=== PATIENT | male | born 1950 | race Caucasian/White ===

== ENCOUNTER 2020-09-11 10:21 | Emergency (ER) | payer MEDICARE, SELFPAY ==
[2020-09-11 10:21] VITALS: BP 158/68; PULSE 67; RESP 18; TEMP 36.4; O2SAT 100; BMI 31.2
--- NOTE | 2020-09-11 10:27 | CT_ITS ---
PROCEDURE: CT ABDOMEN PELVIS W CON CLINICAL INDICATION: right sided pain Right flank pain and right lower quadrant pain COMPARISON: No exams were available for comparison TECHNIQUE: IV Contrast: 75ML Isovue 370 Oral Contrast None Axial images obtained with sagittal and coronal reformats. All CT scans at the facility use one or more dose reduction, viz: automated exposure control, ma/kV adjustment per patient size (including targeted exams where dose is matched to indication, i.e. head), or iterative reconstruction technique. FINDINGS: LOWER THORAX: Minimal atelectatic changes in the lung bases. There is mild cardiomegaly. ABDOMEN & PELVIS: Prior cholecystectomy with mild biliary dilatation. No focal liver lesion apparent. The spleen is enlarged at 14 cm. Multiple low-density areas are present in the spleen the measuring up to 14 mm posteriorly. These areas show some slight increased density centrally. At least 7 hypodense areas are noted. These areas become isodense to splenic parenchyma on the delayed images and are not readily discernible from the spleen.. The adrenal glands and pancreas has an unremarkable appearance. No renal or ureteral calculi. No hydronephrosis. The there is an indeterminate 15 mm isodense nodule of the right kidney projecting anteriorly No evidence of appendicitis. There is a mild amount of retained colonic feces. No intestinal obstruction or free air is evident. There is colonic diverticulosis but no evidence of diverticulitis. A penile implant is present with insufflation bulb in the left lower quadrant There are degenerative changes in the lumbar spine and hips. IMPRESSION: 1. No evidence of appendicitis or obstructing renal or ureteral calculus. 2. There is an indeterminate 15 mm right renal nodule. Nonemergent ultrasound suggested to determine cystic or solid nature. 3. Splenomegaly with multiple slightly hypodense splenic lesions which become isodense to spleen on the delayed images. These could represent atypical hemangiomas. One cannot exclude the possibility of metastatic foci or small splenic abscesses. Consider short-term follow-up to confirm stability 4. Colonic diverticulosis but no evidence of diverticulitis Dictated by: Rob Hawthorne MD 09/11/2020 12:37 Rob Hawthorne MD in [place] 09/11/2020 12:37
--- NOTE | 2020-09-11 10:42 | HMH.EDGENADL ---
ED Disposition Clinical Impression: Right flank pain, Renal cyst, Splenic lesion Disposition: Home, Self-Care Condition on Discharge: Good Instructions: DI for Acute Abdominal Pain Additional Instructions: Return to the emergency department with any new, changing, or worsening symptoms. You need to follow-up with your primary care physician and have a renal ultrasound performed as well as have close follow-up for your spleen. Please follow-up with your primary care physician early next week. Please return to the ER with new or worsening symptoms. Return for vomiting, worsening abdominal pain, lightheadedness, passing out, blood in your urine, difficulty with urination, burning when you urinate. Referrals: Salvador Lamb MD [Primary Care Provider] - Time of Disposition: 13:08 - Critical Care Critical Care Time: No Attestation: On 09/11/20, the high probability of a clinically significant, sudden or life threatening deterioration of the following system(s) required my full and direct attention, intervention and personal management. The time I documented below is in addition to time spent performing reported procedures but includes the following listed in this critical care notation. Medical Decision Making - Medical Records Medical records reviewed: Yes: I reviewed the patient's medical records. - Curt Inquiry Pt receiving controlled substance: No Vital Signs: 09/11/20 10:21 09/11/20 11:00 09/11/20 11:30 Temperature 97.6 F Temperature Source Oral Pulse Rate 66 64 Pulse Rate [Right Radial] 67 Respiratory Rate 18 18 18 Blood Pressure 152/76 H 143/71 H Blood Pressure [Right Arm] 158/68 H Blood Pressure Mean [Right Arm] 98 Blood Pressure Source Automatic Cuff Automatic Cuff Blood Pressure Source [Right Arm] Automatic Cuff Blood Pressure Position Sitting Sitting Blood Pressure Position [Right Arm] Sitting 02 Sat by Pulse Oximetry 100 98 100 Oxygen Delivery Method Room Air Room Air Room Air 09/11/20 13:58 Temperature 98 F Temperature Source Oral Pulse Rate 78 Pulse Rate [Right Radial] Respiratory Rate 16 Blood Pressure 132/74 Blood Pressure [Right Arm] Blood Pressure Mean [Right Arm] Blood Pressure Source Blood Pressure Source [Right Arm] Blood Pressure Position Sitting Blood Pressure Position [Right Arm] 02 Sat by Pulse Oximetry Oxygen Delivery Method Room Air - Lab Data Lab results reviewed: Yes: I reviewed the patient's lab results. Lab Results 09/11/20 10:46: Sodium 143, Potassium 4.4, Chloride 105, Carbon Dioxide 28, Anion Gap 14.4, BUN 17, Creatinine 0.90, Estimated Creat Clear 81, Estimated GFR 84, Est GFR ( Amer) 101, Glucose 109 H, Calcium 9.8, Total Bilirubin 0.4, AST 32, ALT 22, Alkaline Phosphatase 50, Total Protein 7.6, Albumin 4.8, Globulin 2.8, Albumin/Globulin Ratio 1.7, Lipase 118 09/11/20 11:23: WBC 4.2 L, RBC 3.82 L, Hgb 11.2 L, Hct 32.3 L, MCV 84.6, MCH 29.3, MCHC 34.7, RDW 14.8, Plt Count 135 L, MPV 10.0, Neut % (Auto) 68.6, Lymph % (Auto) 19.6, [place] % (Auto) 7.3, Eos % (Auto) 4.1, Baso % (Auto) 0.4, Neut # (Auto) 2.9, Lymph # (Auto) 0.8, [place] # (Auto) 0.3, Eos # (Auto) 0.2, Baso # (Auto) 0.0 09/11/20 11:23: Lactate 1.3 09/11/20 12:47: Urine Color Yellow, Urine Appearance Clear, Urine pH 7.5, Ur Specific [place] 1.015, Urine Protein Negative, Urine Glucose (UA) Negative, Urine Ketones Negative, Urine Blood Negative, Urine Nitrate Negative, Urine Bilirubin Negative, Urine Urobilinogen 0.2, Ur Leukocyte Esterase Trace, Urine WBC 3-5, Ur Squamous Epith Cells 3-5 Result diagrams: 09/11/20 11:23 09/11/20 10:46 Orders (Tests/Meds): ED MEDICATIONS Discontinued Medications Generic Name Dose Route Start Last Admin Trade Name Freq PRN Reason Stop Dose Admin Acetaminophen 1,000 mg 09/11/20 10:51 Acetaminophen 500mg Tab PO 09/11/20 10:52 ONCE ONE Lactated Ringer's 1,000 mls @ 999 mls/hr 09/11/20 10:30 09/11/20 11:06 Lactated Ringer'
--- NOTE | 2020-09-11 10:44 | HMH.ITSTN ---
ct abd pel pending labs at 10:44am
--- NOTE | 2020-09-11 10:57 | ECG_ITS ---
APPROVED REPORT Exam: Resting ECG HR:63 bpm ECG Measurements Heart Rate 63 AXES ID 174 P 42 QRSd 82 QRS -13 QT 418 T 69 QTc 427 Conclusion Normal sinus rhythm Normal ECG Electronically signed by : Jung Newell, 09/11/2020 18:49:06
[2020-09-11 11:00] VITALS: BP 152/76; PULSE 66; RESP 18; O2SAT 98
--- NOTE | 2020-09-11 11:00 | HMH.ITSTN ---
labs still pending for ct abd pel with contrast. 11am
[2020-09-11 11:16] LABS: Chloride 105 mmol/L (98-107); Sodium 143 mmol/L (136-145)
[2020-09-11 11:17] LABS: Potassium 4.4 mmoL/L (3.5-5.1)
[2020-09-11 11:19] LABS: Alanine Aminotransferase 22 U/L (12-78); Alkaline Phosphatase 50 U/L (38-126); Anion Gap 14.4 mEq/L (5-15); Aspartate Amino Transferase 32 U/L (17-59); Bilirubin,Total 0.4 mg/dl (0.2-1.3); Blood Urea Nitrogen 17 mg/dl (9-20); Carbon Dioxide 28 mmol/L (22.0-30.0); Creatinine Clearance Estimated 81 mL/min (50-200); Estimated Glomerular Filt Rate 84 ml/min (>60); GFR (African American) 101 ML/MIN (>60); Lipase 118 U/L (23-300)
[2020-09-11 11:20] LABS: Albumin Level 4.8 g/dl (3.5-5.0); Albumin/Globulin Ratio 1.7 (1.1-1.8); Calcium 9.8 mg/dl (8.4-10.2); Globulin 2.8 g/dL (1.3-3.2); Glucose 109 mg/dl (74-100); Total Protein,Serum 7.6 g/dl (6.3-8.2)
[2020-09-11 11:30] VITALS: BP 143/71; PULSE 64; RESP 18; O2SAT 100
[2020-09-11 11:34] LABS: Basophils % 0.4 % (0.1-2.0); Eosinophils # 0.2 K/mm3 (0.0-0.4); Eosinophils % 4.1 % (0.1-12.0); Hematocrit 32.3 % (42.0-52.0); Hemoglobin 11.2 g/dL (14.1-18.0); Lymphocytes # 0.8 K/mm3 (0.7-4.5); Lymphocytes % 19.6 % (10-50); Mean Corpuscular HGB Conc 34.7 g/dL (31.8-35.4); Mean Corpuscular Hemoglobin 29.3 pg (27.0-31.2); Mean Corpuscular Volume 84.6 fl (80-94); Monocytes # 0.3 K/mm3 (0.1-1.0); Monocytes % 7.3 % (1.7-9.3); Neutrophils # 2.9 K/mm3 (1.8-7.8); Neutrophils % 68.6 % (37.0-80.0); Platelet Count 135 K/mm3 (142-424); Red Blood Count 3.82 M/mm3 (4.60-6.20); Red Cell Distribution Width 14.8 % (11.5-17.5); White Blood Count 4.2 K/mm3 (4.8-10.8)
--- NOTE | 2020-09-11 11:38 | PC.NURSE ---
notified rad pt labs are back
[2020-09-11 11:45] LABS: Lactic Acid 1.3 mmol/L (0.7-2.1)
--- NOTE | 2020-09-11 11:53 | PC.NURSE ---
pt to Ct
[2020-09-11 12:51] LABS: Microscopic, Urine URINE MICROSCOPIC (MICROSCOPIC)
[2020-09-11 12:59] LABS: Appearance,Urine CLEAR (Clear); Bilirubin,Urine Negative (Negative); Blood, Urine Negative (Negative); Color,Urine YELLOW (Yellow); Glucose,Urine (UA) Negative (Negative); Ketones,Urine Negative (Negative); Leukocyte Esterase,Urine TRACE (Negative); Nitrate,Urine Negative (Negative); PH,Urine 7.5 (5.0-8.5); Protein,Urine Negative (Negative); Specific Gravity, Urine 1.015 (1.005-1.030); Urobilinogen,Urine 0.2 EU/dl (0.2)
[2020-09-11 13:58] VITALS: BP 132/74; PULSE 78; RESP 16; TEMP 36.6; O2SAT 98
== END 2020-09-11 13:59 | disposition home or self-care (01) ==
PROVIDERS: Emergency Provider Emergency Medicine; PCP Family Medicine
DX: N28.1 Cyst of kidney, acquired (principal); D73.89 Other diseases of spleen; G43.709 Chronic migraine without aura, not intractable, without status migrainosus; F33.1 Major depressive disorder, recurrent, moderate
CPT/HCPCS: 74177; 80053; 81001; 83605; 83690; 85025; 93005; 96365; 96375; 99283; J2405; Q9967

== ENCOUNTER → 2020-09-23 13:47 | Outpatient (CLI) | payer MEDICARE, SELFPAY ==
--- NOTE | 2020-09-23 13:53 | US_ITS ---
PROCEDURE: US KIDNEY CLINICAL INDICATION: Recent CT exam showed a small right renal cyst, history of prostate carcinoma 2012 COMPARISON: CT CT ABDOMEN PELVIS W CON from 09/11/2020 FINDINGS: Right kidney measures 9.0 x 6.1 by 6.1 cm with a cortical thickness 1.8 cm. A small exophytic cystic lesion lower pole measuring 1.6 x 1.1x 1.4 cm. Otherwise the right kidney appears sonographically normal. There is normal vascularity. The spleen appears normal. The left kidney measures 10.0 x 6.0 by 6.9 cm with a cortical thickness of 1.4 cm. There is normal vascularity and the left kidney appears sonographically normal. IMPRESSION: Small benign-appearing cystic lesion lower pole right kidney otherwise normal kidneys bilaterally Dictated by: Dr. Jonny Ferrell MD 09/23/2020 15:25 Dr. Jonny Ferrell MD in [place] 09/23/2020 15:25
== END ==
PROVIDERS: PCP Family Medicine; Visit Provider Family Medicine
DX: N28.1 Cyst of kidney, acquired (principal)
CPT/HCPCS: 76770

== ENCOUNTER → 2021-03-19 16:44 | Outpatient (CLI) | payer MEDICARE, SELFPAY ==
[2021-03-19 16:51] LABS: Adenovirus,PCR Not Detected (NotDetected); Bordetella Pertussis Not Detected (NotDetected); Chlamydophila Pneumoniae, PCR Not Detected (NotDetected); Coronavirus 19, PCR Not Detected (NotDetected); Coronavirus 229E Not Detected (NotDetected); Coronavirus NL63 Not Detected (NotDetected); Coronavirus OC43 Not Detected (NotDetected); Coronovirus HKU1,PCR Not Detected (NotDetected); Human Metapneumovirus Not Detected (NotDetected); Influenza A, PCR Not Detected (NotDetected); Influenza AH1, 2009 Not Detected (NotDetected); Influenza AH1, PCR Not Detected (NotDetected); Influenza AH3,PCR Not Detected (NotDetected); Influenza B, PCR Not Detected (NotDetected); Mycoplasma Pneumoniae, PCR Not Detected (NotDetected); Parainfluenza 1, PCR Not Detected (NotDetected); Parainfluenza 2, PCR Not Detected (NotDetected); Parainfluenza 3, PCR Not Detected (NotDetected); Parainfluenza 4, PCR Not Detected (NotDetected); Respiratory Syncytial Virus Not Detected (NotDetected); Rhinovirus/Enterovirus Not Detected (NotDetected)
[2021-03-19 18:00] LABS: Basophils % 0.6 % (0.1-2.0); Eosinophils # 0.2 K/mm3 (0.0-0.4); Eosinophils % 2.9 % (0.1-12.0); Hematocrit 41.1 % (42.0-52.0); Hemoglobin 13.3 g/dL (14.1-18.0); Lymphocytes # 1.1 K/mm3 (0.7-4.5); Lymphocytes % 18.6 % (10-50); Mean Corpuscular HGB Conc 32.3 g/dL (31.8-35.4); Mean Corpuscular Hemoglobin 29.5 pg (27.0-31.2); Mean Corpuscular Volume 91.2 fl (80-94); Mean Platelet Volume 12.3 fl (7.4-10.4); Monocytes # 0.4 K/mm3 (0.1-1.0); Monocytes % 7.5 % (1.7-9.3); Neutrophils % 70.4 % (37.0-80.0); Platelet Count 219 K/mm3 (142-424); Red Blood Count 4.51 M/mm3 (4.60-6.20); Red Cell Distribution Width 14.4 % (11.5-17.5); White Blood Count 5.7 K/mm3 (4.8-10.8)
[2021-03-19 18:25] LABS: Alanine Aminotransferase 21 U/L (12-78); Albumin Level 4.7 g/dl (3.5-5.0); Alkaline Phosphatase 35 U/L (38-126); Anion Gap 12.4 mEq/L (5-15); Aspartate Amino Transferase 32 U/L (17-59); Bilirubin,Total 0.4 mg/dl (0.2-1.3); Blood Urea Nitrogen 20 mg/dl (9-20); Calcium 9.9 mg/dl (8.4-10.2); Carbon Dioxide 30 mmol/L (22.0-30.0); Chloride 100 mmol/L (98-107); Estimated Glomerular Filt Rate 84 ml/min (>60); GFR (African American) 101 ML/MIN (>60); Globulin 2.4 g/dL (1.3-3.2); Glucose 78 mg/dl (74-100); Lipase 93 U/L (23-300); Potassium 4.4 mmoL/L (3.5-5.1); Sodium 138 mmol/L (136-145); Total Protein,Serum 7.1 g/dl (6.3-8.2)
== END ==
PROVIDERS: Visit Provider Family Medicine
DX: Z20.822 Contact with and (suspected) exposure to COVID-19 (principal); R10.9 Unspecified abdominal pain; K57.90 Diverticulosis of intestine, part unspecified, without perforation or abscess without bleeding
CPT/HCPCS: 80053; 83690; 85025; 87086; 87581; 87632; 87798; C9803; U0003; U0005

== ENCOUNTER → 2021-05-24 12:50 | Outpatient (CLI) | payer MEDICARE, SELFPAY ==
--- NOTE | 2021-05-24 12:50 | CT_ITS ---
FINAL REPORT TECHNIQUE: Axial images through the abdomen and pelvis were performed without contrast. This study was performed with techniques to keep radiation doses as low as reasonably achievable, (ALARA). Individualized dose reduction techniques using automated exposure control or adjustment of mA and/or kV according to the patient's size were employed. CLINICAL HISTORY: abdominal pain and splenomegaly COMPARISON: 09/11/2020 FINDINGS: ABDOMEN: Lack of intravenous contrast limits exam sensitivity. There is scarring at the lung bases. The heart size is normal. Patient is status post cholecystectomy. Limited images of the liver are unremarkable. The spleen is at the upper limits of normal in size. Previously noted splenic nodules are not seen on this unenhanced exam. No adrenal mass is identified. The aorta is normal in caliber. There is no significant free fluid or adenopathy. There is a small, nonobstructing left renal stone measuring 3 mm. Exophytic focus in the anterior right kidney is seen measuring 1.6 cm with a mean attenuation value of 32 Hounsfield units which is indeterminate but stable from prior exam. PELVIS: The appendix is not identified. A penile prosthesis is seen with a reservoir in the anterior left hemipelvis. The urinary bladder is unremarkable. There is no significant free fluid or adenopathy. IMPRESSION: Nonobstructing left renal stone. Stable, indeterminate right renal lesion. Previously seen pancreatic nodules not identified on this unenhanced exam. Recommend pre-and postcontrast CT for further evaluation of renal and splenic nodules. Reviewed, Interpreted and Dictated by Timothy Sousa MD Transcribed by Bee Sams Authenticated by Timothy Sousa MD on 05/24/2021 04:28:[address] [facility]
== END ==
PROVIDERS: PCP Family Medicine; Visit Provider Family Medicine
DX: R10.32 Left lower quadrant pain (principal); R16.1 Splenomegaly, not elsewhere classified
CPT/HCPCS: 74176

== ENCOUNTER → 2022-11-28 12:10 | Outpatient (CLI) | payer MEDICARE, SELFPAY ==
--- NOTE | 2022-11-28 12:34 | NM_ITS ---
APPROVED REPORT Exam: Nuclear Stress Test Indication: soa..fatigue..highBP..chest pain..syncope Patient Location: Outpatient Stress Tech: Nisha Johnson [place] Tech:Rohini DodgePERNELL RT(R)(N) Ht: 5 ft 5 in Wt: 180 lbs HR: 72 bpm BP: 121/67 mmHg BSA: 1.89 m2 Rhythm: NSR TID: 1.08 BMI: 29.9 History: soa..fatigue..highBP..chest pain..syncope Procedure: Patient exercised on Michael protocol 8:26 minutes and sec, resting heart rate 72 bpm, resting blood pressure 121/67 mmHg, with exercise maximum heart rate achived was 144 bpm which is 97 % of the maximum predicted heart rate and blood pressure was 180/78 mmHg. Test was stopped due to fatigue. Patient denied any complaint of chest pain. Patient has Average exercise capacity, achieved 10.1 METs of workload on treadmill, the blood pressure response to exercise was Normal. Cardiac Stress and Resting SPECT Images: Cardiac Stress and Resting SPECT images were obtained using technetium 99m Myoview 32.8 mCi stress and 10.43 mCi at rest. Resting and stress imaging in both supine and prone positions demonstrate a medium sized, moderate, reversible perfusion defect in the basal inferior and lateral LV kelley. Gated imaging demonstrates low-normal global LV systolic function. There is mild hypokinesis of the basal inferior and lateral LV kelley. LVEF is calculated at 51%. Conclusion: Medium sized, moderate, reversible perfusion defect in the basal inferior and lateral LV kelley. Findings are suggestive of reversible ischemia. Gated imaging demonstrates low-normal global LV systolic function. There is mild hypokinesis of the basal inferior and lateral LV kelley. LVEF is calculated at 51%. Electronically signed by : Jojo Valle MD 12/03/2022 22:46:06
--- NOTE | 2022-11-28 16:14 | CA_ITS ---
APPROVED REPORT Exam: Exercise Treadmill Technologist: Nisha Johnson Ht: 5 ft 4 in Wt: 177 lbs BSA: 1.86 m2 HR: 70 bpm BP: 121/67 mmHg Rhythm: NSR Indications: Shortness of Air, chest pain Medical History Medications: Amlodipine,,,,, Aspirin,,,,, Magnesium,,,,, FeNOfibrate,,,,, OxYCODONE,,,,, Esomeprazole,,,,, Venlafaxine,,,,, Stress Test Details Test: Michael HR Resting HR: 72 bpm Max Heart Rate (APMHR): 149 bpm Max HR Achieved: 144 bpm Target HR (85% APMHR): 127 bpm % of APMHR: 97 Recovery HR: 90 bpm HR response to stress: Normal HR response to stress BP Resting BP: 121.0/67.0 mmHg Max BP: 180.0/78.0 mmHg Recovery BP: 151.0/61.0 mmHg BP response to stress: Normal blood pressure response to stress. ECG Resting ECG: sinus rhythm Stress EC.[address] depression Arrhythmia: PVCs Recovery ECG: Return to baseline within 3 minutes of recovery Recovery Arrhythmia: PVCs Clinical Exercise duration: 08:26 min Highest Stage Achieved: Exercise capacity: 10.1 METs Overall Exercise Capacity for Age: Average Stress ECG Conclusion The patient was able to exercise for a total of 8 minutes, 26 seconds. He achieved a total of 10.1 METS. He has an average exercise capacity compared to age and sex matched peers. He has normal HR and BP response to exercise. Symptoms: Leg fatigue, dyspnea Arrhythmias/Ectopy: PVC's ST-T Changes: 0.5 mm upsloping [address] depression Conclusion: Average exercise capacity. Unremarkable ECG stress test. Myoview images are reported separately. Test Summary REST . . . . . . . Sitting REST 03:52 0.0 0.0 72 . 121/ 67 . . Stage 1 01:00 10.0 1.7 89 . . . . Stage 1 02:00 10.0 1.7 99 . . . . Stage 1 03:00 10.0 1.7 102 . 138/ 70 . . Stage 2 01:00 12.0 2.5 107 . . . . Stage 2 02:00 12.0 2.5 111 . . . . Stage 2 03:00 12.0 2.5 117 . 144/ 72 . . Stage 3 01:00 14.0 3.4 125 . . . . Stage 3 . . . . . . . Myoview Injected Stage 3 02:00 14.0 3.4 135 . . . . Stage 3 02:26 14.0 3.4 140 . . . Stop exercise at 08:26 RECOVERY 01:00 0.0 0.0 131 . 180/ 78 . . RECOVERY 02:00 0.0 0.0 116 . 180/ 78 . . RECOVERY 03:00 0.0 0.0 104 . 171/ 69 . . RECOVERY 04:00 0.0 0.0 97 . 164/ 62 . . RECOVERY 05:00 0.0 0.0 95 . 158/ 64 . . RECOVERY 05:56 0.0 0.0 88 . 151/ 61 . . Electronically signed by : Jojo Valle MD 12/03/2022 22:42:28
== END ==
PROVIDERS: PCP Family Medicine; Visit Provider Nurse Practitioner Family
DX: R06.02 Shortness of breath (principal); R94.31 Abnormal electrocardiogram [ECG] [EKG]
CPT/HCPCS: 78452; 93017; A9502

== ENCOUNTER → 2022-12-14 13:15 | Outpatient (CLI) | payer MEDICARE, SELFPAY ==
--- NOTE | 2022-12-14 13:17 | CA_ITS ---
APPROVED REPORT EXAM: Comprehensive 2D, Doppler, and color-flow Echocardiogram Muleser: Amira Conner RVT Ht: 5 ft 4 in Wt: 177lbs BSA: 1.86 BP: 130/63 mmHg Indications: SOA,SYNCOPE,CP,HTN,HLD TDS-LIMITED WINDOWS 2D Dimensions LVOT 2.74 cm (M/F) 1.5-2.5 LA Volume 49.10 mL LA Volume Index 26.40 mL/m2 (M/F) 16-34 M-Mode Dimensions RVDd 2.81 cm (0.9-2.6) LA Diam 4.14 cm (1.9-4.0) LVDd 5.02 cm (3.5-5.7) Ao Diam 3.81 cm (2.0-3.7) LVDs 3.33 cm (3.5-5.7) IVSd 1.41 cm (0.6-1.1) PWd 0.61 cm (0.6-1.1) EF (Teich) 62.20% FS 33.70% EDV (Teich) 119.30 mL TAPSE 3.62 (<1.7) ESV (Teich) 45.10 mL LV Diastology E Decel Time 150.00 (160-240 msec) E/A Ratio 0.7 MED E' 6.00 (< 7 cm/sec) E'/MED E' Ratio 13.02 (>14) LAT E' 8.60 (<10 cm/sec) E/LAT E' Ratio 9.08 (>14) Aortic Valve AI PHT 536.00 ms AO Peak GR. 7.90 mmHg Mitral Valve MV E Max Jn. 78.00 (40-130 cm/s) MV A Velocity 117.00 (40-130 cm/s) E/A Ratio 0.67 MV Decel. Time 150.00 (160-240 ms) MV Mean Gr. 3.00 (<2mmHg) MV PHT 44.00 ms Pulmonary Valve PV Peak Velocity 77.00 (50-150 cm/s) Tricuspid Valve TR P. Velocity 248.00 cm/s RAP Estimate 10.00 mmHg RVSP 34.60 mmHg Left Ventricle The left ventricle is normal size. The left ventricular systolic function is normal. The left ventricular ejection fraction is within the normal range. There is normal left ventricular wall thickness. The septum is asynchronous. The left ventricular diastolic function is normal. LVEF is 55%. Right Ventricle Right ventricle is mildly dilated. The right ventricular systolic function is normal. Atria The left atrium size is normal. The right atrium size is normal. There is no Doppler evidence of interatrial shunt. Aortic Valve The aortic valve is trileaflet. The aortic valve opens well. There is no aortic valvular stenosis. Mild aortic regurgitation. Mitral Valve The mitral valve is normal in structure. Trace mitral regurgitation. Tricuspid Valve The tricuspid valve leaflets are thin and pliable. Trace tricuspid regurgitation. There is insufficient TR jet to estimate RVSP. Pulmonic Valve The pulmonary valve is normal in structure. Trace pulmonic regurgitation. Great Vessels The aortic root is normal in size. The ascending aorta is normal in size. IVC is normal in size and collapses >50% with inspiration. Pericardium There is no pericardial effusion. Other Information Study Quality: Fair Conclusion Normal biventricular systolic function. Asynchronous septum. Mild RV dilation. Mild AI. Electronically signed by : Jojo Valle MD 12/17/2022 16:46:56
== END ==
PROVIDERS: PCP Family Medicine; Visit Provider Nurse Practitioner Family
DX: R06.02 Shortness of breath (principal); R94.31 Abnormal electrocardiogram [ECG] [EKG]
CPT/HCPCS: 93306

== ENCOUNTER → 2022-12-20 11:05 | Outpatient (CLI) | payer MEDICARE, SELFPAY | PROVIDERS: PCP Family Medicine; Visit Provider Nurse Practitioner Family | DX: R06.02 Shortness of breath (principal); R55 Syncope and collapse; R94.31 Abnormal electrocardiogram [ECG] [EKG] | CPT/HCPCS: 93270 ==

== ENCOUNTER 2022-12-24 15:40 | Inpatient (IN) | payer MEDICARE, SELFPAY ==
[2022-12-24] VITALS (14 sets, daily range): BP systolic 107–124; BP diastolic 57–71; PULSE 69–81; RESP 10–19; TEMP 36.6–36.8; O2SAT 92–99; BMI 29.9
--- NOTE | 2022-12-24 15:39 | ECG_ITS ---
APPROVED REPORT Exam: Resting ECG HR:76 bpm ECG Measurements Heart Rate 76 AXES VA 202 P 72 QRSd 102 QRS -11 QT 372 T 78 QTc 402 Conclusion SINUS RHYTHM NONSPECIFIC T-WAVE ABNORMALITY BORDERLINE ECG UNCONFIRMED REPORT Electronically signed by : Jung Newell MD 12/26/2022 08:33:49
--- NOTE | 2022-12-24 15:50 | HMH.EDGENADL ---
Discharge Plan Disposition Patient Disposition: Admitted Chief Complaint: Chest Pain Clinical Impressions Clinical Impression: Angina pectoris, unstable Discharge ED Provider: Ray Greenfield General Adult HPI General Chief complaint: Chest Pain Stated complaint: Chest Pain Time Seen by Provider: 12/24/22 15:43 History of Present Illness HPI narrative: Patient is a 72-year-old male with past medical history of hypertension, hyperlipidemia who presents emergency department for evaluation of chest pain. Patient has been feeling generally unwell all day however at 2 PM patient was at rest having substernal chest pain while sitting at the kitchen table that was worse with ambulation to the car. Patient reportedly has a 4.5 cm aneurysm . Chest pain is substernal, waxing and waning in intensity, does not radiate. No other acute complaints at this time. Per chart review patient recently had an echocardiogram which showed normal biventricular systolic function with mild RV dilatation, mild AI. Recent myocardial perfusion scan shows medium size moderate reversible perfusion defect in the basal inferior and lateral left ventricular kelley. There is no CTA chest in our system to confirm reported aneurysm. Related Data Previous Rx's Medication Instructions Recorded amlodipine 10 mg-benazepril 40 mg 1 cap PO DAILY #90 caps 07/12/22 capsule (Lotrel) fenofibrate nanocrystallized 145 See Rx Instructions .Route 08/31/22 mg tablet .COMPLEX #90 tabs esomeprazole magnesium 40 mg See Rx Instructions .Route 09/26/22 capsule,delayed release .COMPLEX #90 caps venlafaxine 150 mg See Rx Instructions .Route 10/06/22 capsule,extended release 24 hr .COMPLEX #90 caps aspirin 81 mg tablet,delayed 81 mg PO DAILY #90 tabs 11/22/22 release (Adult Low Dose Aspirin) oxycodone 10 mg tablet 10 mg PO Q8H PRN pain #90 tabs 12/12/22 Allergies Allergy/AdvReac Type Severity Reaction Status Date / Time No Known Allergies Allergy Verified 12/20/22 10:29 [facility] Disclaimer: The information contained in this section may have been updated after the patient was seen, as this information can be updated by other users. Medical History Abnormal electrocardiogram [ECG] [EKG] Cancer of prostate Cardiomegaly Chest pain Hyperlipidemia Hypertension Incidental lung nodule SOB (shortness of breath) on exertion Syncope Thoracic aortic aneurysm Social History Smoking Status: Never smoker alcohol intake: current substance use type: denies use current occupational status: retired Travel in the last 8 weeks: None ROS Obtained: Yes Systems reviewed as appropriate & no additional complaints except as documented Physical Exam General General appearance: alert and in no apparent distress Head Head exam: atraumatic and normocephalic Eye Eye exam: Present PERRL and EOMI ENT ENT exam: Present mucous membranes moist Neck Neck exam: Present normal inspection Chest Chest inspection: Present normal inspection and symmetric chest wall rise Respiratory Respiratory exam: Present normal lung sounds bilaterally; Absent respiratory distress Cardiovascular Cardiovascular exam: Present regular rate and normal rhythm Abdominal Exam Abdominal exam: Present soft; Absent tenderness Extremities Exam Extremities exam: Present normal inspection and other (No pitting edema) Neurological Exam Neurological exam: Present alert; Absent motor sensory deficit Psychiatric Psychiatric exam: Present normal affect Skin Skin exam: Present warm and dry Medical Decision Making Curt Inquiry Pt receiving controlled substance: No Vital Signs: 12/24/22 15:41 12/24/22 16:00 12/24/22 16:30 Temperature 98.3 F Temperature Source Oral Pulse Rate 77 81 Pulse Rate [Right] 75 Respiratory Rate 19 14 15 Blood Pressure 115/71 107/67 L Blood Pressure
--- NOTE | 2022-12-24 15:56 | CT_ITS ---
PROCEDURE INFORMATION: Exam: CTA Chest With Contrast Exam date and time: 12/24/2022 5:12 PM Age: 72 years old Clinical indication: Chest wall pain; Additional info: Reported aneurysm, cp TECHNIQUE: Imaging protocol: Computed tomographic angiography of the chest with contrast. Exam focused on the arteries. 3D rendering (Not supervised by radiologist): MIP and/or 3D reconstructed images were created by the technologist. Radiation optimization: All CT scans at this facility use at least one of these dose optimization techniques: automated exposure control; mA and/or kV adjustment per patient size (includes targeted exams where dose is matched to clinical indication); or iterative reconstruction. Contrast material: ISOVUE; Contrast volume: 100 ml; Contrast route: INTRAVENOUS (IV); REPORTING DATA: Count of CT and Cardiac NM exams in prior 12 months: This patient has received 0 known CTs and 0 known cardiac nuclear medicine studies in the 12 months prior to the current study. COMPARISON: CT ABDOMEN PELVIS WO CON 05/24/2021 1:09 PM FINDINGS: Pulmonary arteries: Normal. No pulmonary emboli. Aorta: Regions of atherosclerotic vascular calcification involving the aortic arch. Aneurysmal dilatation of the ascending aorta measuring 4.2 cm. Lungs: Bilateral ground-glass regions of opacification. Findings nonspecific and may reflect interstitial lung disease. An acute inflammatory process could not be entirely excluded. Densely calcified granuloma right upper lobe. Pleural spaces: Unremarkable. No pneumothorax. No pleural effusion. Heart: Unremarkable. No cardiomegaly. No pericardial effusion. Coronary arteries: Coronary artery calcification Lymph nodes: Unremarkable. No enlarged lymph nodes. Bones/joints: Unremarkable. No acute fracture. Soft tissues: Unremarkable. IMPRESSION: 1. Aneurysmal dilatation of the ascending aorta measuring 4.2 cm. 2. Bilateral ground-glass regions of opacification. Findings nonspecific and may reflect interstitial lung disease. An acute inflammatory process could not be entirely excluded.
[2022-12-24 16:10] LABS: Alanine Aminotransferase 27 U/L (12-78); Albumin Level 4.5 g/dl (3.5-5.0); Albumin/Globulin Ratio 1.5 (1.1-1.8); Alkaline Phosphatase 33 U/L (38-126); Anion Gap 13.9 mEq/L (5-15); Aspartate Amino Transferase 36 U/L (17-59); Bilirubin,Total 0.3 mg/dl (0.2-1.3); Blood Urea Nitrogen 21 mg/dl (9-20); Calcium 9.6 mg/dl (8.4-10.2); Carbon Dioxide 25 mmol/L (22.0-30.0); Chloride 103 mmol/L (98-107); Estimated Glomerular Filt Rate 74 ml/min (>60); GFR (African American) 89 ML/MIN (>60); Glucose 110 mg/dl (74-100); Potassium 3.9 mmoL/L (3.5-5.1); Sodium 138 mmol/L (136-145); Total Protein,Serum 7.5 g/dl (6.3-8.2)
[2022-12-24 16:12] LABS: Basophils % 0.6 % (0.1-2.0); Eosinophils # 0.2 K/mm3 (0.0-0.4); Hematocrit 38.3 % (42.0-52.0); Hemoglobin 13.3 g/dL (14.1-18.0); Lymphocytes # 1.1 K/mm3 (0.7-4.5); Lymphocytes % 20.5 % (10-50); Mean Corpuscular HGB Conc 34.6 g/dL (31.8-35.4); Mean Corpuscular Hemoglobin 31.8 pg (27.0-31.2); Mean Corpuscular Volume 91.9 fl (80-94); Mean Platelet Volume 9.8 fl (7.4-10.4); Monocytes # 0.3 K/mm3 (0.1-1.0); Monocytes % 5.5 % (1.7-9.3); Neutrophils # 3.8 K/mm3 (1.8-7.8); Neutrophils % 70.6 % (37.0-80.0); Platelet Count 215 K/mm3 (142-424); Red Blood Count 4.17 M/mm3 (4.60-6.20); Red Cell Distribution Width 13.2 % (11.5-17.5); White Blood Count 5.4 K/mm3 (4.8-10.8)
[2022-12-24 16:21] LABS: Troponin I < 0.01 ng/ml (0.00-0.034)
--- NOTE | 2022-12-24 17:44 | PC.NURSE ---
Pt ambulatory to bathroom and back to bed. When asked about his pain after the nitro he advised, It increased and then decreased. It's about a 7/[address] Greenfield notified.
--- NOTE | 2022-12-24 18:54 | PC.NURSE ---
Rounded on pt. No needs voiced at this time. Pt and visitor updated that we are waiting on second trop. Call light within reach.
[2022-12-24 19:15] LABS: Troponin I < 0.01 ng/ml (0.00-0.034)
--- NOTE | 2022-12-24 19:32 | PC.NURSE ---
paged Dr. Payan for the second time.
--- NOTE | 2022-12-24 19:38 | PC.NURSE ---
speaking with Dr. Payan
--- NOTE | 2022-12-24 19:38 | PC.NURSE ---
discussed case with with recommendations for Nitro GTT and admission. House Contacted for bed assignment
--- NOTE | 2022-12-24 19:49 | PC.NURSE ---
rounded on pt no needs at this time
--- NOTE | 2022-12-24 19:55 | PC.NURSE ---
Nitro gtt has been started per order
--- NOTE | 2022-12-24 20:16 | EXP.HP ---
History of Present Illness *Admission Date: 12/24/22 *Reason for visit:: intermittent chest pain *History of present illness: This is a 72-year-old male with past medical history of hypertension, hyperlipidemia, thoracic AA, who presented emergency department for evaluation of intermittent chest pain. Patient has been feeling generally unwell all day however at 2 PM patient was at rest having substernal chest pain while sitting at the kitchen table that was worse with ambulation to the car. Patient reportedly has a 4.5 cm aneurysm . Chest pain is substernal, waxing and waning in intensity, does not radiate. No other acute complaints at this time. Per chart review patient recently had an echocardiogram which showed normal biventricular systolic function with mild RV dilatation, mild AI. Recent myocardial perfusion scan shows medium size moderate reversible perfusion defect in the basal inferior and lateral left ventricular kelley. Patient was diagnosed recently with COVID at other facility and he been on holter monitor. Admitted for management and treatment. \ [facility] Disclaimer: The information contained in this section may have been updated after the patient was seen, as this information can be updated by other users. Medical History Abnormal electrocardiogram [ECG] [EKG] Cancer of prostate Cardiomegaly Chest pain Hyperlipidemia Hypertension Incidental lung nodule SOB (shortness of breath) on exertion Syncope Thoracic aortic aneurysm Social History (Updated 12/24/22 @ 22:04 by Jyothi Fernandes RN) Smoking Status: Never smoker alcohol intake: current substance use type: denies use current occupational status: retired Travel in the last 8 weeks: None Review of Systems Review of Systems Review of systems:: pertinent systems reviewed and negative unless documented below Meds Home Medications and Allergies Home Medications Medication Instructions Recorded Confirmed Type amlodipine 10 mg-benazepril 40 mg 1 cap PO DAILY #90 caps 07/12/22 12/24/22 Rx capsule (Lotrel) fenofibrate nanocrystallized 145 See Rx Instructions .Route 08/31/22 12/24/22 Rx mg tablet .COMPLEX #90 tabs esomeprazole magnesium 40 mg See Rx Instructions .Route 09/26/22 12/24/22 Rx capsule,delayed release .COMPLEX #90 caps venlafaxine 150 mg See Rx Instructions .Route 10/06/22 12/24/22 Rx capsule,extended release 24 hr .COMPLEX #90 caps aspirin 81 mg tablet,delayed 81 mg PO DAILY #90 tabs 11/22/22 12/24/22 Rx release (Adult Low Dose Aspirin) oxycodone 10 mg tablet 10 mg PO Q8H PRN pain #90 tabs 12/12/22 12/24/22 Rx New Prescriptions to Start Prescriptions: Allergies Allergy/AdvReac Type Severity Reaction Status Date / Time No Known Allergies Allergy Verified 12/20/22 10:29 Exam Data for Last 24 hours Vital signs and Labs for Last 24 Hours: Temp Pulse Resp BP Pulse Ox O2 Del Method 98.3 F 70 14 124/70 98 Room Air 12/24/22 15:41 12/24/22 20:00 12/24/22 20:00 12/24/22 20:00 12/24/22 20:00 12/24/22 18:30 Laboratory Results - last 24 hr 12/24/22 15:43: WBC 5.4, RBC 4.17 L, Hgb 13.3 L, Hct 38.3 L, MCV 91.9, MCH 31.8 H, MCHC 34.6, RDW 13.2, Plt Count 215, MPV 9.8, Neut % (Auto) 70.6, Lymph % (Auto) 20.5, [place] % (Auto) 5.5, Eos % (Auto) 3.0, Baso % (Auto) 0.6, Neut # (Auto) 3.8, Lymph # (Auto) 1.1, [place] # (Auto) 0.3, Eos # (Auto) 0.2, Baso # (Auto) 0.0, Sodium 138, Potassium 3.9, Chloride 103, Carbon Dioxide 25, Anion Gap 13.9, BUN 21 H, Creatinine 1.00, Estimated GFR 74, Est GFR ( Amer) 89, Glucose 110 H, Calcium 9.6, Total Bilirubin 0.3, AST 36, ALT 27, Alkaline Phosphatase 33 L, Troponin I < 0.01, Total Protein 7.5, Albumin 4.5, Globulin 3.0, Albumin/Globulin Ratio 1.5 12/24/22 18:47: Troponin I < 0.01 I & O for Last 24 hours: Intake & Output 12/21/22 12/22/22 12/23/22 12/24/22 23:59 23:59 23:59 23:59 Weight 81.647 kg Const
--- NOTE | 2022-12-24 21:20 | PC.NURSE ---
1950 Step down nurse has been called in. awaiting her arrival for transfer to floor.
--- NOTE | 2022-12-24 21:20 | PC.NURSE ---
Sarah giving report to Jyothi GONZALEZ
--- NOTE | 2022-12-24 21:22 | PC.NURSE ---
report given to LISA Roe
[2022-12-24 21:31] LABS: Adenovirus,PCR Not Detected (NotDetected); Coronavirus 19, PCR Not Detected (NotDetected); Coronavirus 229E Not Detected (NotDetected); Coronavirus NL63 Not Detected (NotDetected); Coronavirus OC43 Not Detected (NotDetected); Coronovirus HKU1,PCR Not Detected (NotDetected); Human Metapneumovirus Not Detected (NotDetected); Influenza A, PCR Not Detected (NotDetected); Influenza AH1, 2009 Not Detected (NotDetected); Influenza AH1, PCR Not Detected (NotDetected); Influenza AH3,PCR Not Detected (NotDetected); Influenza B, PCR Not Detected (NotDetected); Parainfluenza 1, PCR Not Detected (NotDetected); Parainfluenza 2, PCR Not Detected (NotDetected); Parainfluenza 3, PCR Not Detected (NotDetected); Parainfluenza 4, PCR Not Detected (NotDetected); Respiratory Syncytial Virus Not Detected (NotDetected); Rhinovirus/Enterovirus Not Detected (NotDetected)
[2022-12-24 22:54] LABS: Troponin I < 0.01 ng/ml (0.00-0.034)
[2022-12-25] VITALS (25 sets, daily range): BP systolic 102–166; BP diastolic 48–82; PULSE 62–90; RESP 12–18; TEMP 36.6–38; O2SAT 93–98; BMI 29.9
--- NOTE | 2022-12-25 01:06 | PC.NURSE ---
PT ARRIVED TO THE FLOOR VIA WHEELCHAIR @ 21:39
[2022-12-25 06:58] LABS: Basophils % 0.8 % (0.1-2.0); Eosinophils # 0.2 K/mm3 (0.0-0.4); Eosinophils % 5.2 % (0.1-12.0); Hematocrit 35.1 % (42.0-52.0); Hemoglobin 12.2 g/dL (14.1-18.0); Lymphocytes # 0.9 K/mm3 (0.7-4.5); Lymphocytes % 27.6 % (10-50); Mean Corpuscular HGB Conc 34.8 g/dL (31.8-35.4); Mean Corpuscular Hemoglobin 32.2 pg (27.0-31.2); Mean Corpuscular Volume 92.5 fl (80-94); Mean Platelet Volume 9.8 fl (7.4-10.4); Monocytes # 0.3 K/mm3 (0.1-1.0); Monocytes % 7.7 % (1.7-9.3); Neutrophils # 1.9 K/mm3 (1.8-7.8); Neutrophils % 58.7 % (37.0-80.0); Platelet Count 168 K/mm3 (142-424); Red Blood Count 3.79 M/mm3 (4.60-6.20); Red Cell Distribution Width 13.1 % (11.5-17.5); White Blood Count 3.3 K/mm3 (4.8-10.8)
[2022-12-25 07:02] LABS: Chloride 106 mmol/L (98-107); Sodium 139 mmol/L (136-145)
[2022-12-25 07:03] LABS: Potassium 3.9 mmoL/L (3.5-5.1)
[2022-12-25 07:05] LABS: Blood Urea Nitrogen 19 mg/dl (9-20); Creatinine Clearance Estimated 71 mL/min (50-200); Estimated Glomerular Filt Rate 66 ml/min (>60); GFR (African American) 80 ML/MIN (>60)
[2022-12-25 07:06] LABS: Anion Gap 10.9 mEq/L (5-15); Calcium 8.9 mg/dl (8.4-10.2); Carbon Dioxide 26 mmol/L (22.0-30.0); Glucose 101 mg/dl (74-100)
[2022-12-25 07:33] LABS: Troponin I < 0.01 ng/ml (0.00-0.034)
--- NOTE | 2022-12-25 08:41 | PC.NURSE ---
pt stated has no chest pain and hasn't had any chest pain all night, stopped nitro drip (was going at 5mcg/min), instructed pt to alert staff if starts having any chest pain at all and can resume drip
--- NOTE | 2022-12-25 09:14 | HMH.PHAINT1 ---
Pharmacy Intervention Comments: MEDICATION RECONCILIATION COMPLETED ON PATIENT USING EXTERNAL FILL HISTORY FROM PHARMACY. -DARCY SMILEY, JOYAD
--- NOTE | 2022-12-25 11:30 | PC.NURSE ---
turned nitro drip back on at 5mcg/min due to 7/10 chest pain, MD Payan at bedside, to order heparin drip and pt will have heart cath tomorrow
--- NOTE | 2022-12-25 11:44 | EXP.CARD.CON ---
History of Present Illness History of Present Illness Consult date: 12/25/22 Consult reason: chest pain Chief complaint: Chest pain History of present illness: 72-year-old male with past medical history of hypertension, dyslipidemia, thoracic aortic aneurysm presented emergency department for chest pain. Patient started having substernal chest pain while sitting at the kitchen table. On and off No radiation No associated symptoms 7/10 in severity Relieved by nitro in ER Aggravated with exertion EKG did not show ischemia Troponin negative Recently diagnosed with thoracic aortic aneurysm Echo showed normal EF Stress test showed inferior ischemia. Seems like unstable angina. [facility] Disclaimer: The information contained in this section may have been updated after the patient was seen, as this information can be updated by other users. Medical History Abnormal electrocardiogram [ECG] [EKG] Cancer of prostate Cardiomegaly Chest pain Hyperlipidemia Hypertension Incidental lung nodule SOB (shortness of breath) on exertion Syncope Thoracic aortic aneurysm Social History Smoking Status: Never smoker alcohol intake: current substance use type: denies use current occupational status: retired Travel in the last 8 weeks: None Review of Systems Review of Systems Review of systems:: pertinent systems reviewed and negative unless documented below Review of systems (narrative): Chest pain Exam Data for Last 24 hours Vital signs and Labs for Last 24 Hours: Temp Pulse Resp BP Pulse Ox O2 Del Method 97.9 F 69 14 140/75 94 L Room Air 12/25/22 08:00 12/25/22 09:00 12/25/22 09:00 12/25/22 09:00 12/25/22 09:00 12/25/22 09:00 Laboratory Results - last 24 hr 12/24/22 15:43: WBC 5.4, RBC 4.17 L, Hgb 13.3 L, Hct 38.3 L, MCV 91.9, MCH 31.8 H, MCHC 34.6, RDW 13.2, Plt Count 215, MPV 9.8, Neut % (Auto) 70.6, Lymph % (Auto) 20.5, [place] % (Auto) 5.5, Eos % (Auto) 3.0, Baso % (Auto) 0.6, Neut # (Auto) 3.8, Lymph # (Auto) 1.1, [place] # (Auto) 0.3, Eos # (Auto) 0.2, Baso # (Auto) 0.0, Sodium 138, Potassium 3.9, Chloride 103, Carbon Dioxide 25, Anion Gap 13.9, BUN 21 H, Creatinine 1.00, Estimated GFR 74, Est GFR ( Amer) 89, Glucose 110 H, Calcium 9.6, Total Bilirubin 0.3, AST 36, ALT 27, Alkaline Phosphatase 33 L, Troponin I < 0.01, Total Protein 7.5, Albumin 4.5, Globulin 3.0, Albumin/Globulin Ratio 1.5 12/24/22 18:47: Troponin I < 0.01 12/24/22 21:25: Chlamy pneumoniae PCR TNP, Adenovirus (PCR) Not detected, B. pertussis DNA (PCR) TNP, Coronavirus OC43 (PCR) Not detected, Coronavirus HKU1 (PCR) Not detected, Coronavirus 229E (PCR) Not detected, SARS-CoV-2 (PCR) Not detected, Coronavirus NL63 (PCR) Not detected, Human Metapneumovir PCR Not detected, Influenza A (H1) PCR Not detected, Influ A (H1N1/09) PCR Not detected, Influenza A (H3) PCR Not detected, Influenza Type A (PCR) Not detected, Influenza Type B (PCR) Not detected, M. pneumoniae (PCR) TNP, Parainfluenza 1 (PCR) Not detected, Parainfluenza 2 (PCR) Not detected, Parainfluenza 3 (PCR) Not detected, Parainfluenza 4 (PCR) Not detected, RSV (PCR) Not detected, Entero/Rhino (PCR) Not detected 12/24/22 22:15: Troponin I < 0.01 12/25/22 06:40: WBC 3.3 L D, RBC 3.79 L, Hgb 12.2 L, Hct 35.1 L, MCV 92.5, MCH 32.2 H, MCHC 34.8, RDW 13.1, Plt Count 168, MPV 9.8, Neut % (Auto) 58.7, Lymph % (Auto) 27.6, [place] % (Auto) 7.7, Eos % (Auto) 5.2, Baso % (Auto) 0.8, Neut # (Auto) 1.9, Lymph # (Auto) 0.9, [place] # (Auto) 0.3, Eos # (Auto) 0.2, Baso # (Auto) 0.0, Sodium 139, Potassium 3.9, Chloride 106, Carbon Dioxide 26, Anion Gap 10.9, BUN 19, Creatinine 1.10, Estimated Creat Clear 71, Estimated GFR 66, Est GFR ( Amer) 80, Glucose 101 H, Calcium 8.9, Troponin I < 0.01 I & O for Last 24 hours: Intake & Output 12/22/22 12/23/22 12/24/22 12/25/22 23:59 23:59 23:59 23:59 I
--- NOTE | 2022-12-25 11:46 | HMH.PHAHEP ---
[facility] Pharmacy Heparin Dosing Demographic Data Admission date:: 12/24/22 Date: 12/25/22 Time: 11:47 Allergies Allergy/AdvReac Type Severity Reaction Status Date / Time No Known Allergies Allergy Verified 12/20/22 10:29 Height: 1.65 m Weight: 81.6 kg Indication Medication therapy:: Heparin Current Active Problems (Updated 12/25/22 @ 12:00 by Kaitlin Payan MD) Interstitial lung disease (Acute) Angina pectoris, unstable (Acute) SOB (shortness of breath) on exertion (Acute) Abnormal electrocardiogram [ECG] [EKG] (Acute) Chest pain (Acute) Thoracic aortic aneurysm (Acute) Hyperlipidemia (Acute) Hypertension (Acute) CVA?: No Bleeding problem?: No Kidney disease?: No MT?: No Desired PTT range:: 50-75 seconds Labs Anticoagulation Lab Results:: 12/24/22 12/25/22 15:43 06:40 Hgb 13.3 L 12.2 L Hct 38.3 L 35.1 L Plt Count 215 168 Monitoring Dose Monitor 1: Date: 12/25/22 Time: 12:05 PTT Result:: 27.2 (BASELINE) Infusion Rate:: 1,000 UNITS/HR Comment:: 4,000 UNIT BOLUS Dose Monitor 2: Date: 12/25/22 Time: 18:30 PTT Result:: 39.9 Infusion Rate:: INCREASE RATE TO 1,300 UNITS/HR Comment:: 4,000 UNIT BOLUS Dose Monitor 3: Date: 12/26/22 Time: 02:00 PTT Result:: 75.9 Infusion Rate:: 1,300 UNITS/HR Dose Monitor 4: Date: 12/26/22 Time: 08:00 PTT Result:: 56.4 Infusion Rate:: 1,300 UNITS/HR Dose Monitor 5: Date: 12/26/22 Time: 12:05 PTT Result:: DRIP STOPPED Comment:: DRIP STOPPED Core Measures Is INR > or = 2 at discharge?: No Most Recent Labs:: Laboratory Results - last 24 hr 12/24/22 15:43: WBC 5.4, RBC 4.17 L, Hgb 13.3 L, Hct 38.3 L, MCV 91.9, MCH 31.8 H, MCHC 34.6, RDW 13.2, Plt Count 215, MPV 9.8, Neut % (Auto) 70.6, Lymph % (Auto) 20.5, [place] % (Auto) 5.5, Eos % (Auto) 3.0, Baso % (Auto) 0.6, Neut # (Auto) 3.8, Lymph # (Auto) 1.1, [place] # (Auto) 0.3, Eos # (Auto) 0.2, Baso # (Auto) 0.0, Sodium 138, Potassium 3.9, Chloride 103, Carbon Dioxide 25, Anion Gap 13.9, BUN 21 H, Creatinine 1.00, Estimated GFR 74, Est GFR ( Amer) 89, Glucose 110 H, Calcium 9.6, Total Bilirubin 0.3, AST 36, ALT 27, Alkaline Phosphatase 33 L, Troponin I < 0.01, Total Protein 7.5, Albumin 4.5, Globulin 3.0, Albumin/Globulin Ratio 1.5 12/24/22 18:47: Troponin I < 0.01 12/24/22 21:25: Chlamy pneumoniae PCR TNP, Adenovirus (PCR) Not detected, B. pertussis DNA (PCR) TNP, Coronavirus OC43 (PCR) Not detected, Coronavirus HKU1 (PCR) Not detected, Coronavirus 229E (PCR) Not detected, SARS-CoV-2 (PCR) Not detected, Coronavirus NL63 (PCR) Not detected, Human Metapneumovir PCR Not detected, Influenza A (H1) PCR Not detected, Influ A (H1N1/09) PCR Not detected, Influenza A (H3) PCR Not detected, Influenza Type A (PCR) Not detected, Influenza Type B (PCR) Not detected, M. pneumoniae (PCR) TNP, Parainfluenza 1 (PCR) Not detected, Parainfluenza 2 (PCR) Not detected, Parainfluenza 3 (PCR) Not detected, Parainfluenza 4 (PCR) Not detected, RSV (PCR) Not detected, Entero/Rhino (PCR) Not detected 12/24/22 22:15: Troponin I < 0.01 12/25/22 06:40: WBC 3.3 L D, RBC 3.79 L, Hgb 12.2 L, Hct 35.1 L, MCV 92.5, MCH 32.2 H, MCHC 34.8, RDW 13.1, Plt Count 168, MPV 9.8, Neut % (Auto) 58.7, Lymph % (Auto) 27.6, [place] % (Auto) 7.7, Eos % (Auto) 5.2, Baso % (Auto) 0.8, Neut # (Auto) 1.9, Lymph # (Auto) 0.9, [place] # (Auto) 0.3, Eos # (Auto) 0.2, Baso # (Auto) 0.0, Sodium 139, Potassium 3.9, Chloride 106, Carbon Dioxide 26, Anion Gap 10.9, BUN 19, Creatinine 1.10, Estimated Creat Clear 71, Estimated GFR 66, Est GFR ( Amer) 80, Glucose 101 H, Calcium 8.9, Troponin I < 0.01 Were Heparin and Warfarin started on the same day?: No If not, why?: STOPPED IN STEEL TESTER
--- NOTE | 2022-12-25 12:30 | PC.NURSE ---
started new 20G PIV in left hand for heparin drip
[2022-12-25 12:39] LABS: PTT Heparin (inpatient only) 27.2 Seconds (23.6-34.0)
--- NOTE | 2022-12-25 16:22 | EXP.PN ---
Subjective *Date: 12/25/22 *Time: 16:48 Interval history: Patient was seen and evaluated at the bedside. denies active chest pain, shortness of breath, nausea, vomiting, abdominal pain. He has been having exertional chest pain with activity. feels better overall Exam Data for Last 24 hours Vital signs and Labs for Last 24 Hours: Temp Pulse Resp BP Pulse Ox O2 Del Method 97.8 F 74 18 110/69 97 Room Air 12/25/22 15:56 12/25/22 16:00 12/25/22 16:00 12/25/22 16:00 12/25/22 16:00 12/25/22 16:00 Laboratory Results - last 24 hr 12/24/22 15:43: Troponin I < 0.01 12/24/22 18:47: Troponin I < 0.01 12/24/22 21:25: Chlamy pneumoniae PCR TNP, Adenovirus (PCR) Not detected, B. pertussis DNA (PCR) TNP, Coronavirus OC43 (PCR) Not detected, Coronavirus HKU1 (PCR) Not detected, Coronavirus 229E (PCR) Not detected, SARS-CoV-2 (PCR) Not detected, Coronavirus NL63 (PCR) Not detected, Human Metapneumovir PCR Not detected, Influenza A (H1) PCR Not detected, Influ A (H1N1/09) PCR Not detected, Influenza A (H3) PCR Not detected, Influenza Type A (PCR) Not detected, Influenza Type B (PCR) Not detected, M. pneumoniae (PCR) TNP, Parainfluenza 1 (PCR) Not detected, Parainfluenza 2 (PCR) Not detected, Parainfluenza 3 (PCR) Not detected, Parainfluenza 4 (PCR) Not detected, RSV (PCR) Not detected, Entero/Rhino (PCR) Not detected 12/24/22 22:15: Troponin I < 0.01 12/25/22 06:40: WBC 3.3 L D, RBC 3.79 L, Hgb 12.2 L, Hct 35.1 L, MCV 92.5, MCH 32.2 H, MCHC 34.8, RDW 13.1, Plt Count 168, MPV 9.8, Neut % (Auto) 58.7, Lymph % (Auto) 27.6, [place] % (Auto) 7.7, Eos % (Auto) 5.2, Baso % (Auto) 0.8, Neut # (Auto) 1.9, Lymph # (Auto) 0.9, [place] # (Auto) 0.3, Eos # (Auto) 0.2, Baso # (Auto) 0.0, Sodium 139, Potassium 3.9, Chloride 106, Carbon Dioxide 26, Anion Gap 10.9, BUN 19, Creatinine 1.10, Estimated Creat Clear 71, Estimated GFR 66, Est GFR ( Amer) 80, Glucose 101 H, Calcium 8.9, Troponin I < 0.01 12/25/22 12:10: APTT 27.2 I & O for Last 24 hours: Intake & Output 12/22/22 12/23/22 12/24/22 12/25/22 23:59 23:59 23:59 23:59 Intake Total 1404 / 1404 Output Total 0 / 50 600 / 600 Balance 0 / 394 804 / 804 Weight 81.647 kg 81.6 kg Constitutional Constitutional: no acute distress *Routine HEENT Exam Head: Present normocephalic Eye: Present EOMI and PERRL ENT: Present mucous membranes moist *Routine Neck Exam Neck: Present supple; Absent lymphadenopathy *Routine Respiratory Exam Respiratory: Present CTA bilaterally *Routine Cardiovascular Exam Cardiovascular: Present RRR *Routine Abdominal Exam Abdominal: Present soft and normoactive bowel sounds; Absent tenderness *Routine Extremities Exam Extremities: Absent cyanosis, clubbing or edema *Routine Skin Exam Skin: Present warm; Absent rash *Routine Neurological Exam Neurological: Present alert and oriented X3 Assessment and Plan *Assessment and plan (1) Interstitial lung disease: Status: Acute Category: Medical Code(s): J84.9 - Interstitial pulmonary disease, unspecified (2) Angina pectoris, unstable: Status: Acute Category: Medical Code(s): I20.0 - Unstable angina (3) SOB (shortness of breath) on exertion: Status: Acute Category: Medical Code(s): R06.02 - Shortness of breath (4) Chest pain: Status: Acute Qualifiers: Chest pain type: other chest pain Qualified Code(s): R07.89 - Other chest pain Category: Medical Code(s): R07.9 - Chest pain, unspecified (5) Thoracic aortic aneurysm: Status: Acute Qualifiers: Presence of rupture: without rupture Thoracic aorta location: ascending aorta Qualified Code(s): I71.21 - Aneurysm of the ascending aorta, without rupture Category: Medical Code(s): I71.20 - Thoracic aortic aneurysm, without rupture, unspecified (6) Hyperlipidemia: Problem Comment: Lipitor 40 mg daily Status: Acute Qualifie
--- OUTSIDE RECORDS SUMMARY | 2022-12-25 18:15 | XMS_ITS | Continuity of Care Document ---
Author Name Unknown Organization [facility] Address [address] [place] [address] Phone Care Team Providers Care Senior Software Developer Name Role Phone Beti BRAMBILA, Vinh Unavailable Unavailable Advance Directives Directive Yes / No Effective Date File Name No Information Encounters Encounter Description Practice Location Reason(s) For Visit Diagnoses Date Provider Providers Copied on Encounter [facility] , [address] [place], [address], [place] tel:[phone] Counts include 234 beds at the [facility] No Information Beti Justice. [address] [place] [address], [place], [place], [id number], . tel:[phone] Referring Provider: Vinh Haile, [address] [place] [address], [place], [address]. tel:[phone] Family History Family Member Type Diagnosis Age At Onset No Information Payers Payer name Insurance type Covered constitution party ID Authoriza tion(s) No Information Social History Type Description Quantity Date Captured Comments Sex Male Smoking Status No Information Chief Complaint And Reason For Visit No Information Reason For Referral Reason For Referral No Information History Of Present Illness Encounter Date Complaint History Of Prese nt Illness
--- OUTSIDE RECORDS SUMMARY | 2022-12-25 18:16 | XMS_ITS | Continuity of Care Document ---
Author Name Unknown Organization [facility] Address [address] [place] [place] [address] Phone Care Team Providers Care Cart Pusher Name Role Phone Tenzin BRAMBILA, Ronald Unavailable Unavailable Allergies, Adverse Reactions, Alerts Substance Reaction Status Criticality No Known Drug Allergies Active No I nformation Medications Medication Instructions Dosage Effective Dates (start - stop) Status Comments fenofibrate nanocrystallized 145 mg tablet - Active Nexium 40 mg Cap take 1 capsule (40MG) by ORAL route every day - Active venlafaxine 75 mg Tab take 1 tablet (75M G) by oral route every day with food - Active dicyclomine 20 mg tablet take 1 tablet b y oral route 4 times every day PRN 20 MG - Active Procedures Procedure Date OFFICE/OUTPATIENT VISIT, EST INJECTION TREATMENT OF NERVE Lidocaine injection Presumptive Cup Destruction By Neurolytic Agent WITH FLU RO CERVICA Cervical/thoracic Each Additional Level Lidocaine injection INJ PARAVERT F JNT C/T 1 LEV INJ PARAVERT F JNT C/T 2 LEV INJ PARAVERT F JNT C/T 3 LEV Omnipaque 300-399/ml 1ml
[2022-12-25 19:31] LABS: PTT Heparin (inpatient only) 39.9 Seconds (23.6-34.0)
[2022-12-26] VITALS (30 sets, daily range): BP systolic 101–125; BP diastolic 50–92; PULSE 64–96; RESP 12–24; TEMP 36.5–37; O2SAT 91–98; BMI 28.5
[2022-12-26 02:35] LABS: PTT Heparin (inpatient only) 75.9 Seconds (23.6-34.0)
--- NOTE | 2022-12-26 04:29 | PC.NURSE ---
Pt AOx4, standby assist, intermittently sleeping in bed, afebrile and VSS throughout shift. When discussing POC, pt denied having any discussion with commercial front load operator regarding risks/benefits of cardiac cath at this time. Educated pt on current plan to prep pt in a.m. for cath. DEANDRE Diggs at bedside now to assist prep for cath. Nitro gtt remained on, no chest pain at this time. Heparin gtt managed per protocol and concurrently with [facility] pharmacist, currently at 1300 u/hr, next timed aPTT ordered. No BM overnight, pt says he feels a little constipated, but (+) bowel sounds. Hospitalist notified, orders received. No other acute needs at this time.
[2022-12-26 06:45] LABS: Chloride 106 mmol/L (98-107); Sodium 137 mmol/L (136-145)
[2022-12-26 06:48] LABS: Blood Urea Nitrogen 18 mg/dl (9-20); Carbon Dioxide 24 mmol/L (22.0-30.0); Creatinine Clearance Estimated 75 mL/min (50-200); Estimated Glomerular Filt Rate 74 ml/min (>60); GFR (African American) 89 ML/MIN (>60)
[2022-12-26 06:49] LABS: Calcium 8.6 mg/dl (8.4-10.2); Glucose 108 mg/dl (74-100)
[2022-12-26 06:53] LABS: Basophils % 0.5 % (0.1-2.0); Eosinophils # 0.2 K/mm3 (0.0-0.4); Eosinophils % 4.4 % (0.1-12.0); Hematocrit 33.9 % (42.0-52.0); Hemoglobin 11.8 g/dL (14.1-18.0); Lymphocytes # 1.1 K/mm3 (0.7-4.5); Lymphocytes % 31.3 % (10-50); Mean Corpuscular HGB Conc 34.8 g/dL (31.8-35.4); Mean Corpuscular Hemoglobin 32.3 pg (27.0-31.2); Mean Corpuscular Volume 92.6 fl (80-94); Mean Platelet Volume 9.9 fl (7.4-10.4); Monocytes # 0.3 K/mm3 (0.1-1.0); Monocytes % 7.3 % (1.7-9.3); Neutrophils # 1.9 K/mm3 (1.8-7.8); Neutrophils % 56.4 % (37.0-80.0); Platelet Count 141 K/mm3 (142-424); Red Blood Count 3.67 M/mm3 (4.60-6.20); White Blood Count 3.4 K/mm3 (4.8-10.8)
--- NOTE | 2022-12-26 07:21 | PC.NURSE ---
Report received. Patient resting in bed with eyes closed. 121/62 68 heart rate, 95% 11 respirations.
[2022-12-26 08:44] LABS: Activated Partial Thrombo Time 56.4 seconds (22.8-30.6)
--- NOTE | 2022-12-26 08:48 | IR_ITS ---
APPROVED REPORT Patient Location: Inpatient Car Repairer [place]: PERNELL Roberts RT (R) PROCEDURES Left heart catheterization Right radial access Percutaneous intervention of OM1 artery with 3.0x15 mm drug-eluting stent FFR to LAD artery INDICATION Unstable angina SCAI INDICATION Unstable angina Informed consent was obtained prior to the procedure. COMPLICATIONS None Estimated Blood Loss: Less than 10 mls TECHNIQUE One percent lidocaine used to anesthetize the right anterior aspect of the wrist. The right radial artery was accessed via the Seldinger technique. A 6 Cymraes sheath was placed in the right radial artery. 400 mcg of nitroglycerin was given through the arterial sheath. The papa catheter was also used to perform left heart catheterization and selective coronary angiogram. Patient was found to have 70 to 80% stenosis in OM1 artery and 40 to 50% stenosis in mid LAD artery. I intervened on OM1 artery and did FFR of the LAD artery. At the end of the procedure the sheath was removed good hemostasis was achieved using Traclet band, patient was transferred to the postop holding area in stable condition. ANGIOGRAPHIC RESULTS The left main artery Patent The left anterior descending artery Proximal 40-50% stenosis of the origin of OM1 branch. The circumflex artery OM1 branch has ostial to proximal 70 to 80% stenosis. The right coronary artery Patent The OLIVIA ventriculogram reveals Not done The left ventricular end-diastolic pressure Not done EBU 3.75 6 Cymraes guide catheter was advanced and left main artery was engaged. Heparin was given as per protocol. Run-through wire was advanced through the OM1 artery lesion. Tip of the wire was in distal vessel. 3.0x15 mm drug-eluting stent was advanced and positioned into the lesion. It was deployed at nominal pressure. Angiogram reviewed showed well-expanded stent. There was no perforation or dissection. DAVEY-3 flow in distal vessel. Then I advanced a wire in the LAD artery and tip of the wire was in distal LAD artery. FFR was performed as per standard protocol. FFR value was 0.87 which is normal. IMPRESSION Coronary artery disease as above. LAD artery has 40 to 50% proximal disease. FFR to LAD artery was 0.87 which is normal. Physiologically nonsignificant lesion. OM1 artery had 70 to 80% ostial proximal stenosis. It was intervened successfully with 3.0 x 15 mm drug and stent. PLAN 1. Routine post cath care. 2. Aspirin, statin, Brilinta, Norvasc and Imdur. 3. Diet, lifestyle modification and exercise program. 4. Cardiac rehab. 5. Strict blood sugar, cholesterol and blood pressure control. Electronically signed by : Kaitlin Payan, 12/26/2022 11:26:53
--- NOTE | 2022-12-26 09:26 | PC.NURSE ---
Per Dr. St patient okay to transition to Step Down status.
--- NOTE | 2022-12-26 10:02 | EXP.CARD.PN ---
Subjective Subjective Date: 12/26/22 Time: 08:00 Principal diagnosis: unstable angina, abnormal nuclear stress test Interval history: Patient remains stable, denies chest pain. Plan for left heart catheterization today for unstable angina and abnormal stress test. Morning labs reviewed and stable. Exam Data for Last 24 hours Vital signs and Labs for Last 24 Hours: Temp Pulse Resp BP Pulse Ox O2 Del Method 97.7 F 70 12 121/62 97 Room Air 12/26/22 07:39 12/26/22 08:00 12/26/22 07:00 12/26/22 07:00 12/26/22 07:00 12/26/22 09:07 Laboratory Results - last 24 hr 12/25/22 12:10: APTT 27.2 12/25/22 18:50: APTT 39.9 H 12/26/22 02:00: APTT 75.9 H* 12/26/22 05:50: WBC 3.4 L, RBC 3.67 L, Hgb 11.8 L, Hct 33.9 L, MCV 92.6, MCH 32.3 H, MCHC 34.8, RDW 13.0, Plt Count 141 L, MPV 9.9, Neut % (Auto) 56.4, Lymph % (Auto) 31.3, [place] % (Auto) 7.3, Eos % (Auto) 4.4, Baso % (Auto) 0.5, Neut # (Auto) 1.9, Lymph # (Auto) 1.1, [place] # (Auto) 0.3, Eos # (Auto) 0.2, Baso # (Auto) 0.0, Sodium 137, Potassium 4.0, Chloride 106, Carbon Dioxide 24, Anion Gap 11.0, BUN 18, Creatinine 1.00, Estimated Creat Clear 75, Estimated GFR 74, Est GFR ( Amer) 89, Glucose 108 H, Calcium 8.6 12/26/22 08:20: APTT 56.4 H I & O for Last 24 hours: Intake & Output 12/23/22 12/24/22 12/25/22 12/26/22 23:59 23:59 23:59 23:59 Intake Total 2160.625 / 2483.625 525 / 525 Output Total 0 / 50 1160 / 1160 1275 / 1275 Balance 0 / 394 1000.625 / 1323.625 -750 / -750 Weight 180 lb 179 lb 14.355 oz 171 lb 11.841 oz Constitutional Constitutional: no acute distress *Routine Respiratory Exam Respiratory: Present CTA bilaterally and symmetric chest movement *Routine Cardiovascular Exam Cardiovascular: Present RRR, Normal S1 and Normal S2 *Routine Abdominal Exam Abdominal: Present soft and normoactive bowel sounds; Absent tenderness *Routine Extremities Exam Extremities: Present full ROM and normal capillary refill; Absent edema *Routine Skin Exam Skin: Present intact, dry and warm Detailed Neck Exam: Thyroids Thyroid: Absent bruit Progress Note: A&P Assessment and plan (1) Interstitial lung disease: Status: Acute (2) Angina pectoris, unstable: Status: Acute (3) SOB (shortness of breath) on exertion: Status: Acute (4) Chest pain: Status: Acute (5) Thoracic aortic aneurysm: Status: Acute (6) Hyperlipidemia: Problem details: Lipitor 40 mg daily Status: Acute (7) Hypertension: Status: Acute Assessment and Plan Assessment and Plan for All Diagnoses:: Unstable angina CCS 3 Abnormal stress test -Serial troponin negative -Stress test 11/2022: Medium size, moderate, reversible perfusion defect in the basal inferior and lateral LV kelley. Findings are suggestive reversible ischemia -Echo 12/2022: Normal biventricular function, mild RV dilation, mild AI -Plan for left heart catheterization today for unstable angina and abnormal stress test. Discussed risk versus benefits with patient he is agreeable Stable Thoracic aortic aneurysm -CTA chest in 2022: Aneurysmal dilation of the ascending aorta measuring 4.2 cm-stable Interstitial lung disease -Defer to primary and pulmonary CV summary 12/26/2022: proceed with left heart catheterization for unstable angina and abnormal stress test. CV meds Aspirin 81 mg p.o. daily Atorvastatin 40 mg p.o. daily Lisinopril 40 mg p.o. daily
[2022-12-26 14:38] LABS: CATHL Activated Clotting Time 174 SEC (74-125)
--- NOTE | 2022-12-26 17:39 | EXP.PN ---
Subjective *Date: 12/26/22 *Time: 17:39 Interval history: Patient was seen and evaluated at the bedside. he is ready for cardiac cath today, denies active chest pain, shortness of breath, nausea, vomiting, abdominal pain. He has been having exertional chest pain with activity. feels better overall Exam Data for Last 24 hours Vital signs and Labs for Last 24 Hours: Temp Pulse Resp BP Pulse Ox O2 Del Method 97.7 F 88 18 117/60 95 Room Air 12/26/22 07:39 12/26/22 17:15 12/26/22 17:15 12/26/22 17:15 12/26/22 17:15 12/26/22 17:15 Laboratory Results - last 24 hr 12/25/22 18:50: APTT 39.9 H 12/26/22 02:00: APTT 75.9 H* 12/26/22 05:50: WBC 3.4 L, RBC 3.67 L, Hgb 11.8 L, Hct 33.9 L, MCV 92.6, MCH 32.3 H, MCHC 34.8, RDW 13.0, Plt Count 141 L, MPV 9.9, Neut % (Auto) 56.4, Lymph % (Auto) 31.3, [place] % (Auto) 7.3, Eos % (Auto) 4.4, Baso % (Auto) 0.5, Neut # (Auto) 1.9, Lymph # (Auto) 1.1, [place] # (Auto) 0.3, Eos # (Auto) 0.2, Baso # (Auto) 0.0, Sodium 137, Potassium 4.0, Chloride 106, Carbon Dioxide 24, Anion Gap 11.0, BUN 18, Creatinine 1.00, Estimated Creat Clear 75, Estimated GFR 74, Est GFR ( Amer) 89, Glucose 108 H, Calcium 8.6 12/26/22 08:20: APTT 56.4 H 12/26/22 10:25: Activated Clotting Time 174 H* Temp Pulse Resp BP Pulse Ox O2 Del Method 97.7 F 70 12 121/62 97 Room Air 12/26/22 07:39 12/26/22 08:00 12/26/22 07:00 12/26/22 07:00 12/26/22 07:00 12/26/22 09:07 Laboratory Results - last 24 hr 12/25/22 12:10: APTT 27.2 12/25/22 18:50: APTT 39.9 H 12/26/22 02:00: APTT 75.9 H* 12/26/22 05:50: WBC 3.4 L, RBC 3.67 L, Hgb 11.8 L, Hct 33.9 L, MCV 92.6, MCH 32.3 H, MCHC 34.8, RDW 13.0, Plt Count 141 L, MPV 9.9, Neut % (Auto) 56.4, Lymph % (Auto) 31.3, [place] % (Auto) 7.3, Eos % (Auto) 4.4, Baso % (Auto) 0.5, Neut # (Auto) 1.9, Lymph # (Auto) 1.1, [place] # (Auto) 0.3, Eos # (Auto) 0.2, Baso # (Auto) 0.0, Sodium 137, Potassium 4.0, Chloride 106, Carbon Dioxide 24, Anion Gap 11.0, BUN 18, Creatinine 1.00, Estimated Creat Clear 75, Estimated GFR 74, Est GFR ( Amer) 89, Glucose 108 H, Calcium 8.6 12/26/22 08:20: APTT 56.4 H I & O for Last 24 hours: Intake & Output 12/23/22 12/24/22 12/25/22 12/26/22 23:59 23:59 23:59 23:59 Intake Total 2160.625 / 2483.625 1005 / 1005 Output Total 0 1160 / 1160 1725 / 1725 Balance 0 / 394 1000.625 / 1323.625 -720 / -720 Weight 81.647 kg 81.6 kg 77.9 kg Intake & Output 12/23/22 12/24/22 12/25/22 12/26/22 23:59 23:59 23:59 23:59 Intake Total 2160.625 / 2483.625 525 / 525 Output Total 0 50 1160 / 1160 1275 / 1275 Balance 0 / 394 1000.625 / 1323.625 -750 / -750 Weight 180 lb 179 lb 14.355 oz 171 lb 11.841 oz Constitutional Constitutional: no acute distress *Routine Respiratory Exam Respiratory: Present CTA bilaterally and symmetric chest movement *Routine Cardiovascular Exam Cardiovascular: Present RRR, Normal S1 and Normal S2 *Routine Abdominal Exam Abdominal: Present soft and normoactive bowel sounds; Absent tenderness *Routine Extremities Exam Extremities: Present full ROM and normal capillary refill; Absent edema *Routine Skin Exam Skin: Present intact, dry and warm Detailed Neck Exam: Thyroids Thyroid: Absent bruit Assessment and Plan *Assessment and plan (1) Interstitial lung disease: Status: Acute Category: Medical Code(s): J84.9 - Interstitial pulmonary disease, unspecified (2) Angina pectoris, unstable: Status: Acute Category: Medical Code(s): I20.0 - Unstable angina (3) SOB (shortness of breath) on exertion: Status: Acute Category: Medical Code(s): R06.02 - Shortness of breath (4) Chest pain: Status: Acute Qualifiers: Chest pain type: other chest pain Qualified Code(s): R07.89 - Other chest pain Category: Medical Code(s): R07.9 - Chest pain, unspecified (5) Thoracic aortic aneurysm: Status: Acute Qualifier
[2022-12-27] VITALS (8 sets, daily range): BP systolic 105–130; BP diastolic 54–69; PULSE 68–94; RESP 15–20; TEMP 36.4–36.9; O2SAT 97–99; BMI 29.2
--- NOTE | 2022-12-27 04:53 | PC.NURSE ---
Patient has been has a great night tonight. Has been able to sleep. Patient did state he was worried about having a BM before leaving. Patient is on a stool softener and educated patient it may take a day to work. Patient was okay with that. Right radial site dressing remains intact with no drainage noted. No other issues noted by patient
[2022-12-27 06:11] LABS: Chloride 105 mmol/L (98-107); Potassium 4.3 mmoL/L (3.5-5.1); Sodium 138 mmol/L (136-145)
[2022-12-27 06:14] LABS: Anion Gap 12.3 mEq/L (5-15); Blood Urea Nitrogen 19 mg/dl (9-20); Calcium 9.1 mg/dl (8.4-10.2); Carbon Dioxide 25 mmol/L (22.0-30.0); Creatinine Clearance Estimated 64 mL/min (50-200); Estimated Glomerular Filt Rate 60 ml/min (>60); GFR (African American) 72 ML/MIN (>60); Glucose 109 mg/dl (74-100)
[2022-12-27 06:16] LABS: Basophils % 0.2 % (0.1-2.0); Eosinophils # 0.2 K/mm3 (0.0-0.4); Eosinophils % 2.7 % (0.1-12.0); Hematocrit 35.4 % (42.0-52.0); Hemoglobin 12.2 g/dL (14.1-18.0); Lymphocytes # 0.9 K/mm3 (0.7-4.5); Lymphocytes % 16.5 % (10-50); Mean Corpuscular HGB Conc 34.4 g/dL (31.8-35.4); Mean Corpuscular Hemoglobin 31.5 pg (27.0-31.2); Mean Corpuscular Volume 91.4 fl (80-94); Mean Platelet Volume 9.6 fl (7.4-10.4); Monocytes # 0.3 K/mm3 (0.1-1.0); Monocytes % 6.2 % (1.7-9.3); Neutrophils # 4.1 K/mm3 (1.8-7.8); Neutrophils % 74.3 % (37.0-80.0); Platelet Count 159 K/mm3 (142-424); Red Blood Count 3.87 M/mm3 (4.60-6.20); Red Cell Distribution Width 13.2 % (11.5-17.5); White Blood Count 5.5 K/mm3 (4.8-10.8)
--- NOTE | 2022-12-27 08:06 | EXP.DC.SUM ---
General Admission date:: 12/24/22 Discharge date: 12/27/22 HPI HPI HPI: This is a 72-year-old male with past medical history of hypertension, hyperlipidemia, thoracic AA, who presented emergency department for evaluation of intermittent chest pain. Patient has been feeling generally unwell all day however at 2 PM patient was at rest having substernal chest pain while sitting at the kitchen table that was worse with ambulation to the car. Patient reportedly has a 4.5 cm aneurysm . Chest pain is substernal, waxing and waning in intensity, does not radiate. No other acute complaints at this time. Per chart review patient recently had an echocardiogram which showed normal biventricular systolic function with mild RV dilatation, mild AI. Recent myocardial perfusion scan shows medium size moderate reversible perfusion defect in the basal inferior and lateral left ventricular kelley. Patient was diagnosed recently with COVID at other facility and he been on holter monitor. Admitted for management and treatment. \ Hospital Course Hospital Course Hospital Course: 72-year-old male with past medical history of hypertension, hyperlipidemia, thoracic AA, who presented emergency department for evaluation of intermittent chest pain. ER evalution included, borderline EKG, with not specific or definitive ST changes . troponin are negatives, CTA of chest showed bilateral ground glass opacities. the rest of the lab are grossly unremarkable. Cardiology was consulted. patient hemodinamically stable. Treated with nitro drip for hypertension, taken to [facility] with intervention on single lesion with 1 drug-eluting stent. Improvement in symptoms. Stable for discharge home. Problems addressed as follows: - Intermittent chest pain, likely Unstable angina. - CAD - HTN - HLD Admitted for chest pain. Serial troponins and telemetry monitoring. Started on a heparin and nitro drip. Was taken for left heart cath with findings below. We will continue aspirin, statin, Brilinta, Norvasc, Imdur, benazepril at discharge. Monitored overnight with no other issues with blood pressure. Stable to discharge home with close follow-up with cardiology. Chest pain resolved. IMPRESSION Coronary artery disease as described in full report LAD artery has 40 to 50% proximal disease. FFR to LAD artery was 0.87 which is normal. Physiologically nonsignificant lesion. OM1 artery had 70 to 80% ostial proximal stenosis. It was intervened successfully with 3.0 x 15 mm drug and stent. -Interstitial lung disease: Also cause of chest pain. this is likely secondary to previous Hx of COVID to rule out PNA. started on IV ceftriaxone empirically during admission. stable on RA. No further antibiotics warranted at discharge -Thoracic AA: stable per CTA of chest. no signs of rupture. maintain optimal BP Exam Data for Last 24 hours Vital signs and Labs for Last 24 Hours: Temp Pulse Resp BP Pulse Ox O2 Del Method 98.2 F 71 16 108/60 L 97 Room Air 12/27/22 04:00 12/27/22 06:00 12/27/22 06:00 12/27/22 06:00 12/27/22 06:00 12/27/22 06:59 Laboratory Results - last 24 hr 12/26/22 08:20: APTT 56.4 H 12/26/22 10:25: Activated Clotting Time 174 H* 12/27/22 05:40: WBC 5.5 D, RBC 3.87 L, Hgb 12.2 L, Hct 35.4 L, MCV 91.4, MCH 31.5 H, MCHC 34.4, RDW 13.2, Plt Count 159, MPV 9.6, Neut % (Auto) 74.3, Lymph % (Auto) 16.5, [place] % (Auto) 6.2, Eos % (Auto) 2.7, Baso % (Auto) 0.2, Neut # (Auto) 4.1, Lymph # (Auto) 0.9, [place] # (Auto) 0.3, Eos # (Auto) 0.2, Baso # (Auto) 0.0, Sodium 138, Potassium 4.3, Chloride 105, Carbon Dioxide 25, Anion Gap 12.3, BUN 19, Creatinine 1.20, Estimated Creat Clear 64, Estimated GFR 60, Est GFR ( Amer) 72, Glucose 109 H, Calcium 9.1 I & O for Last 24 hours: Intake & Output 12/24/22 12/25/22 12/26/22 12/27/22 23:59 23:59 23:59 23:59 Intake Total 2160.625 / 2483.625 1005 / 1155 620 / 620 Output Total 0 / 50 1160 / 1160 2225 / 2725 1400 / 1400 Jose J
--- NOTE | 2022-12-27 10:08 | EXP.CARD.PN ---
Subjective Subjective Date: 12/27/22 Time: 08:00 Principal diagnosis: unstable angina, abnormal nuclear stress test Interval history: s/p [facility] 12/26/2022. See report below: IMPRESSION Coronary artery disease as above. LAD artery has 40 to 50% proximal disease. FFR to LAD artery was 0.87 which is normal. Physiologically nonsignificant lesion. OM1 artery had 70 to 80% ostial proximal stenosis. It was intervened successfully with 3.0 x 15 mm drug and stent. PLAN 1. Routine post cath care. 2. Aspirin, statin, Brilinta, Norvasc and Imdur. 3. Diet, lifestyle modification and exercise program. 4. Cardiac rehab. 5. Strict blood sugar, cholesterol and blood pressure control. Exam Data for Last 24 hours Vital signs and Labs for Last 24 Hours: Temp Pulse Resp BP Pulse Ox O2 Del Method 98.2 F 86 20 130/69 99 Room Air 12/27/22 08:00 12/27/22 10:00 12/27/22 10:00 12/27/22 10:00 12/27/22 10:00 12/27/22 10:00 Laboratory Results - last 24 hr 12/26/22 10:25: Activated Clotting Time 174 H* 12/27/22 05:40: WBC 5.5 D, RBC 3.87 L, Hgb 12.2 L, Hct 35.4 L, MCV 91.4, MCH 31.5 H, MCHC 34.4, RDW 13.2, Plt Count 159, MPV 9.6, Neut % (Auto) 74.3, Lymph % (Auto) 16.5, [place] % (Auto) 6.2, Eos % (Auto) 2.7, Baso % (Auto) 0.2, Neut # (Auto) 4.1, Lymph # (Auto) 0.9, [place] # (Auto) 0.3, Eos # (Auto) 0.2, Baso # (Auto) 0.0, Sodium 138, Potassium 4.3, Chloride 105, Carbon Dioxide 25, Anion Gap 12.3, BUN 19, Creatinine 1.20, Estimated Creat Clear 64, Estimated GFR 60, Est GFR ( Amer) 72, Glucose 109 H, Calcium 9.1 I & O for Last 24 hours: Intake & Output 12/24/22 12/25/22 12/26/2212/27/23 23:59 23:59 23:59 23:59 Intake Total 2160.625 / 2483.625 1005 / 1155 620 / 620 Output Total 0 / 50 1160 / 1160 2225 / 2725 1400 / 1400 Balance 0 / 394 1000.625 / 1323.625 -1220 / -1570 -780 / -780 Weight 180 lb 179 lb 14.355 oz 171 lb 11.841 oz 175 lb 8 oz Constitutional Constitutional: no acute distress *Routine Respiratory Exam Respiratory: Present CTA bilaterally and symmetric chest movement *Routine Cardiovascular Exam Cardiovascular: Present RRR, Normal S1 and Normal S2 *Routine Abdominal Exam Abdominal: Present soft and normoactive bowel sounds; Absent tenderness *Routine Extremities Exam Extremities: Present full ROM and normal capillary refill; Absent edema *Routine Skin Exam Skin: Present intact, dry and warm Detailed Neck Exam: Thyroids Thyroid: Absent bruit Progress Note: A&P Assessment and plan (1) Interstitial lung disease: Status: Acute (2) Angina pectoris, unstable: Status: Acute (3) SOB (shortness of breath) on exertion: Status: Acute (4) Chest pain: Status: Acute (5) Thoracic aortic aneurysm: Status: Acute (6) Hyperlipidemia: Problem details: Lipitor 40 mg daily Status: Acute (7) Hypertension: Status: Acute Assessment and Plan Assessment and Plan for All Diagnoses:: Unstable angina CCS 3 Abnormal stress test -Serial troponin negative -Stress test 11/2022: Medium size, moderate, reversible perfusion defect in the basal inferior and lateral LV kelley. Findings are suggestive reversible ischemia -Echo 12/2022: Normal biventricular function, mild RV dilation, mild AI -Status post left heart cath with stenting to OM1, see note above Stable Thoracic aortic aneurysm -CTA chest in 2022: Aneurysmal dilation of the ascending aorta measuring 4.2 cm-stable Interstitial lung disease -Defer to primary and pulmonary CV summary 12/27/2022: CV stable for discharge home. Please have patient follow-up in cardiology clinic in 1 week for reevaluation. Please continue below listed cardiac meds. CV meds Aspirin 81 mg p.o. daily Brilinta 90 mg p.o. twice daily Norvasc 10 mg p.o. daily Imdur 30 mg p.o. daily Atorvastatin 40 mg p.o. daily Lisinopril 40 mg p.o. daily
--- NOTE | 2022-12-27 13:06 | HMH.PHAINT1 ---
Pharmacy Intervention Comments: DISCHARGE MEDICATION COUNSELING PROVIDED. DISCUSSED STARTING THE FOLLOWING: -ATORVASTATIN (CHOLESTEROL, AT BEDTIME, MUSCLE PAIN/WEAKNESS POSSIBLE) -BRILINTA (BLOOD THINNER, TWICE DAILY, BLEED/BRUISE RISK/LOCATION/APPEARANCE, BUMP HEAD = GO TO ER TO RULE OUT HEAD BLEED, SOB POSSIBLE) -ISOSORBIDE MONO (FOR CHEST PAIN/BP, DAILY, DIZZINESS, LIGHTHEADED, HEADACHE POSSIBLE) NO QUESTIONS VERBALIZED AT THIS TIME.
--- NOTE | 2022-12-29 16:10 | CARE MANAGER ---
Called and spoke with patient regarding recent discharge. Patient states that he is feeling a little sick today . We spoke about new medications that had been started and I explained that he should call and schedule an appt with his PCP to let him know what was going on with him. No other concerns voiced at time of call.
== END 2022-12-27 13:51 | disposition home or self-care (01) | DRG 322 ==
LOC: ER 17:13 → 2ND 19:44
PROVIDERS: Internal Medicine; Internal Medicine Interventional Cardiology; Nurse Practitioner Family; Admitting Provider Internal Medicine; Emergency Provider Emergency Medicine; PCP Family Medicine; Visit Provider Internal Medicine
PROC: 027034Z Dilation of Coronary Artery, One Artery with Drug-eluting Intraluminal Device, Percutaneous Approach (ICD-10-PCS; principal; 2022-12-26 10:00)
DX: I25.110 Atherosclerotic heart disease of native coronary artery with unstable angina pectoris (principal); J84.9 Interstitial pulmonary disease, unspecified; I71.21 Aneurysm of the ascending aorta, without rupture; E78.2 Mixed hyperlipidemia; I10 Essential (primary) hypertension; R07.89 Other chest pain; Z85.46 Personal history of malignant neoplasm of prostate; E78.5 Hyperlipidemia, unspecified
CPT/HCPCS: 36415; 71275; 80048; 80053; 84484; 85025; 85347; 85730; 87632; 87635; 92928; 93005; 93458; 93571; 99152; 99153; 99291; C1725; C1760; C1769; C1876; C9600; J0153; J0696; J1644; Q9967

== ENCOUNTER → 2023-01-03 11:21 | Outpatient (CLI) | payer MEDICARE, SELFPAY ==
[2023-01-03 11:43] LABS: Basophils % 0.6 % (0.1-2.0); Eosinophils # 0.2 K/mm3 (0.0-0.4); Eosinophils % 3.4 % (0.1-12.0); Hematocrit 36.2 % (42.0-52.0); Hemoglobin 12.4 g/dL (14.1-18.0); Lymphocytes # 1.1 K/mm3 (0.7-4.5); Lymphocytes % 18.1 % (10-50); Mean Corpuscular HGB Conc 34.3 g/dL (31.8-35.4); Mean Corpuscular Hemoglobin 30.9 pg (27.0-31.2); Mean Corpuscular Volume 90.2 fl (80-94); Mean Platelet Volume 10.4 fl (7.4-10.4); Monocytes # 0.4 K/mm3 (0.1-1.0); Monocytes % 6.6 % (1.7-9.3); Neutrophils # 4.5 K/mm3 (1.8-7.8); Neutrophils % 71.2 % (37.0-80.0); Platelet Count 218 K/mm3 (142-424); Red Blood Count 4.01 M/mm3 (4.60-6.20); Red Cell Distribution Width 13.5 % (11.5-17.5); White Blood Count 6.3 K/mm3 (4.8-10.8)
[2023-01-03 12:16] LABS: Alanine Aminotransferase 32 U/L (12-78); Albumin Level 4.6 g/dl (3.5-5.0); Alkaline Phosphatase 32 U/L (38-126); Aspartate Amino Transferase 36 U/L (17-59); Bilirubin,Direct 0.2 mg/dl (0.0-0.4); Bilirubin,Indirect 0.4 mg/dL (0.0-0.9); Bilirubin,Total 0.6 mg/dl (0.2-1.3); Bilirubin,Unconjugated 0.4 mg/dL (0.0-1.1); Blood Urea Nitrogen 28 mg/dl (9-20); Calcium 10.1 mg/dl (8.4-10.2); Carbon Dioxide 23 mmol/L (22.0-30.0); Chol/HDL Ratio 3.5 (1-3.5); Cholesterol 105 mg/dl (140-200); Estimated Glomerular Filt Rate 50 ml/min (>60); GFR (African American) 60 ML/MIN (>60); Glucose 86 mg/dl (74-100); HDL Cholesterol 30 mg/dl (40-60); Magnesium 1.8 mg/dl (1.6-2.3); Potassium 4.3 mmoL/L (3.5-5.1); Sodium 138 mmol/L (136-145); Total Protein,Serum 7.2 g/dl (6.3-8.2); Triglycerides 130 mg/dl (30-150); VLDL Cholesterol 26 mg/dL (0-40)
[2023-01-03 12:24] LABS: Anion Gap 17.3 mEq/L (5-15); Chloride 102 mmol/L (98-107)
[2023-01-03 12:27] LABS: Direct LDL Cholesterol 51.77 mg/dL (100-129)
[2023-01-03 12:32] LABS: Free T4 (Free Thyroxine) 1.01 ng/dl (0.78-2.19)
[2023-01-03 12:47] LABS: Thyroid Stimulating Hormone 4.34 uIU/mL (0.465-4.68)
== END ==
PROVIDERS: PCP Family Medicine; Visit Provider Internal Medicine
DX: I25.10 Atherosclerotic heart disease of native coronary artery without angina pectoris (principal); I71.20 Thoracic aortic aneurysm, without rupture, unspecified; E78.5 Hyperlipidemia, unspecified; G89.4 Chronic pain syndrome; J84.9 Interstitial pulmonary disease, unspecified; R11.0 Nausea; R91.1 Solitary pulmonary nodule; I11.9 Hypertensive heart disease without heart failure
CPT/HCPCS: 36415; 80048; 80061; 80076; 83735; 84439; 84443; 85025

== ENCOUNTER → 2023-01-17 10:26 | Outpatient (CLI) | payer MEDICARE, SELFPAY ==
[2023-01-17 12:09] LABS: Chloride 106 mmol/L (98-107); Potassium 4.5 mmoL/L (3.5-5.1); Sodium 139 mmol/L (136-145)
[2023-01-17 12:12] LABS: Anion Gap 13.5 mEq/L (5-15); Blood Urea Nitrogen 26 mg/dl (9-20); Calcium 9.6 mg/dl (8.4-10.2); Carbon Dioxide 24 mmol/L (22.0-30.0); Estimated Glomerular Filt Rate 66 ml/min (>60); GFR (African American) 80 ML/MIN (>60); Glucose 126 mg/dl (74-100)
== END ==
PROVIDERS: PCP Family Medicine; Visit Provider Internal Medicine
DX: R79.89 Other specified abnormal findings of blood chemistry (principal)
CPT/HCPCS: 36415; 80048

== ENCOUNTER 2023-03-31 21:08 | Outpatient (CLI) | payer MEDICARE, SELFPAY ==
[2023-03-31 19:43] LABS: Amphetamine/Metha Screen,Urine Negative ng/ml (<1000)
[2023-03-31 19:47] LABS: Benzodiazepines Screen,Urine Negative ng/ml (<200)
[2023-03-31 19:48] LABS: Cannabinoid Screen,Urine Negative ng/ml (<50); Cocaine Screen,Urine Negative ng/ml (<300)
[2023-03-31 19:49] LABS: Methadone Screen,Urine Negative ng/ml (<300)
[2023-03-31 19:50] LABS: Opiate Screen,Urine Negative ng/ml (<300)
[2023-03-31 20:12] LABS: Phencyclidine Screen,Urine Negative ng/ml (<25)
[2023-03-31 20:14] LABS: Barbiturates Screen,Urine Negative ng/ml (<200)
== END 2023-03-31 23:59 ==
LOC: LAB.DROPOF 21:09
PROVIDERS: PCP Family Medicine; Visit Provider Family Medicine
DX: Z79.899 Other long term (current) drug therapy (principal)
CPT/HCPCS: 80307

== ENCOUNTER 2023-06-12 13:24 | Outpatient (CLI) | payer MEDICARE, SELFPAY ==
[2023-06-12 13:46] LABS: Basophils % 0.7 % (0.1-2.0); Eosinophils # 0.3 K/mm3 (0.0-0.4); Eosinophils % 4.1 % (0.1-12.0); Hematocrit 35.9 % (42.0-52.0); Hemoglobin 11.5 g/dL (14.1-18.0); Lymphocytes # 1.1 K/mm3 (0.7-4.5); Lymphocytes % 17.2 % (10-50); Mean Corpuscular Hemoglobin 30.3 pg (27.0-31.2); Mean Corpuscular Volume 94.5 fl (80-94); Mean Platelet Volume 10.7 fl (7.4-10.4); Monocytes # 0.4 K/mm3 (0.1-1.0); Monocytes % 5.9 % (1.7-9.3); Neutrophils # 4.6 K/mm3 (1.8-7.8); Neutrophils % 72.1 % (37.0-80.0); Platelet Count 194 K/mm3 (142-424); Red Cell Distribution Width 14.2 % (11.5-17.5); White Blood Count 6.4 K/mm3 (4.8-10.8)
[2023-06-12 14:20] LABS: Alanine Aminotransferase 31 U/L (12-78); Albumin Level 4.2 g/dl (3.5-5.0); Alkaline Phosphatase 43 U/L (38-126); Anion Gap 11.5 mEq/L (5-15); Aspartate Amino Transferase 34 U/L (17-59); Bilirubin,Direct 0.2 mg/dl (0.0-0.4); Bilirubin,Indirect 0.4 mg/dL (0.0-0.9); Bilirubin,Total 0.6 mg/dl (0.2-1.3); Bilirubin,Unconjugated 0.4 mg/dL (0.0-1.1); Blood Urea Nitrogen 24 mg/dl (9-20); Carbon Dioxide 22 mmol/L (22.0-30.0); Chloride 107 mmol/L (98-107); Chol/HDL Ratio 4.1 (1-3.5); Cholesterol 155 mg/dl (140-200); Estimated Glomerular Filt Rate 73 ml/min (>60); GFR (African American) 89 ML/MIN (>60); Glucose 99 mg/dl (74-100); HDL Cholesterol 38 mg/dl (40-60); Potassium 4.5 mmoL/L (3.5-5.1); Sodium 136 mmol/L (136-145); Total Protein,Serum 6.5 g/dl (6.3-8.2); Triglycerides 147 mg/dl (30-150); VLDL Cholesterol 29 mg/dL (0-40)
[2023-06-12 14:31] LABS: Direct LDL Cholesterol 79.92 mg/dL (100-129)
[2023-06-12 14:50] LABS: Thyroid Stimulating Hormone 1.91 uIU/mL (0.465-4.68)
== END 2023-06-12 23:59 ==
LOC: LAB 13:24
PROVIDERS: PCP Family Medicine; Visit Provider Physician Assistant
DX: I25.10 Atherosclerotic heart disease of native coronary artery without angina pectoris (principal); I71.21 Aneurysm of the ascending aorta, without rupture; E78.2 Mixed hyperlipidemia; I11.9 Hypertensive heart disease without heart failure; G89.4 Chronic pain syndrome; R79.89 Other specified abnormal findings of blood chemistry; J84.9 Interstitial pulmonary disease, unspecified; R91.1 Solitary pulmonary nodule
CPT/HCPCS: 36415; 80048; 80061; 80076; 83735; 84439; 84443; 85025

== ENCOUNTER 2023-06-15 12:52 | Outpatient (CLI) | payer MEDICARE, SELFPAY ==
--- NOTE | 2023-06-15 12:53 | CT_ITS ---
FINAL REPORT TECHNIQUE: Postcontrast axial images of the chest were performed in a CTA protocol. This study was performed with techniques to keep radiation doses as low as reasonably achievable, (ALARA). Individualized dose reduction technique using automated exposure control or adjustment of mA and/or kV according to the patient's size were employed. CLINICAL HISTORY: aneurysmal dilatation of thoracic aorta COMPARISON: 12/24/2022 FINDINGS: The heart is normal in size. No adenopathy is identified. No pleural or pericardial effusion is identified. There is a stable aneurysmal dilatation of the ascending aorta measuring 4.2 cm. There is no evidence of dissection. There is no filling defect to suggest pulmonary embolism. No lung infiltrate or mass is identified. There is a calcified granuloma in the right lung. Bilateral lower lobe atelectasis is seen. The images of the upper abdomen demonstrate postoperative changes of cholecystectomy but are otherwise unremarkable. IMPRESSION: Stable aneurysmal dilatation of the ascending aorta measuring 4.2 cm. No dissection. Reviewed, Interpreted and Dictated by Juarez Palafox III, MD Transcribed by Bee Sams Authenticated and [facility]
[2023-06-15] MEDS: IOPAMIDOL-370 (76%);100ML BOTTLE 100 ML IV (13:28)
[2023-06-15] MEDS: 0.9 % SODIUM CHLORIDE 50 ML VIAL 40 ML IV (13:28)
[2023-06-15] MEDS: SODIUM CHLORIDE 0.9% 10ML SYR (RAD ONLY) 10 ML IV (13:28)
== END 2023-06-15 23:59 | disposition home or self-care (01) ==
LOC: RAD 12:53
PROVIDERS: PCP Family Medicine; Visit Provider Physician Assistant
DX: I71.21 Aneurysm of the ascending aorta, without rupture (principal); I25.10 Atherosclerotic heart disease of native coronary artery without angina pectoris; I51.7 Cardiomegaly; E78.2 Mixed hyperlipidemia; I10 Essential (primary) hypertension; G89.4 Chronic pain syndrome; R79.89 Other specified abnormal findings of blood chemistry
CPT/HCPCS: 71275; Q9967

== ENCOUNTER 2023-12-28 06:18 | Emergency (ER) | payer MEDICARE, SELFPAY ==
[2023-12-28] VITALS (7 sets, daily range): BP systolic 130–142; BP diastolic 65–71; PULSE 61–68; RESP 16–19; TEMP 36.7–36.9; O2SAT 99–100; BMI 28.6
--- NOTE | 2023-12-28 06:17 | ECG_ITS ---
APPROVED REPORT Exam: Resting ECG HR:63 bpm ECG Measurements Heart Rate 63 AXES DC 207 P 74 QRSd 99 QRS -8 QT 393 T 73 QTc 400 Conclusion SINUS RHYTHM NORMAL ECG Electronically signed by : NELI PAULA, 12/29/2023 07:23:22
--- NOTE | 2023-12-28 06:20 | XR_ITS ---
PROCEDURE INFORMATION: Exam: XR Chest Exam date and time: 12/28/2023 6:26 AM Age: 73 years old Clinical indication: Angina pectoris; Patient HX: Chest pain, bilateral upper extremity pain, HX mi TECHNIQUE: Imaging protocol: Radiologic exam of the chest. Views: 2 views. COMPARISON: CT ANGIO CHEST 06/15/2023 1:15 PM FINDINGS: Lungs: 6 mm right mid lung nodular density superimposed over right hilum. 6 mm right mid lung zone calcified granuloma. No consolidation. Pleural spaces: Unremarkable. No pleural effusion. No pneumothorax. Heart/Mediastinum: Borderline cardiac silhouette enlargement Bones/joints: Degenerative change of the visualized lower cervical spine. Intraperitoneal space: Right upper quadrant surgical clips. IMPRESSION: 1. No radiographic evidence of an acute thoracic abnormality. 2. 6 mm right mid lung nodular density superimposed over the right hilar region which corresponds to a right lower lobe pulmonary nodule noted on CT chest exam dated June 15, 2023. For patients at low risk (minimal or absent history of smoking and of other known risk factors), recommend CT Chest at 6-12 months, then consider CT Chest at 18-24 months. For patients at high risk (history of smoking or of other known risk factors), recommend CT Chest at 6-12 months, then CT Chest at 18-24 months. (Reference: Shine) 3. 6 mm benign calcified granuloma of the lung zone. 4. Borderline cardiac silhouette enlargement. REFERENCES: Shine Mir et al. Guidelines for Management of Incidental Pulmonary Nodules Detected on CT Images: From the Fleischner Society 2017. Radiology. 2017;284(1):228-243.
[2023-12-28] MEDS: ASPIRIN 81MG CHEWABLE TABLET 324 MG PO (06:27)
--- NOTE | 2023-12-28 06:29 | CT_ITS ---
PROCEDURE INFORMATION: Exam: CT Head Without Contrast Exam date and time: 12/28/2023 6:46 AM Age: 73 years old Clinical indication: Pain; Headache not specified; Additional info: Headache, HX cancer TECHNIQUE: Imaging protocol: Computed tomography of the head without contrast. Radiation optimization: All CT scans at this facility use at least one of these dose optimization techniques: automated exposure control; mA and/or kV adjustment per patient size (includes targeted exams where dose is matched to clinical indication); or iterative reconstruction. COMPARISON: CT HEAD/BRAIN WO CON 12/28/2023 6:46 AM FINDINGS: Brain: There is no evidence of acute parenchymal hemorrhage, extra-axial collection, or acute infarction. There is no mass effect, midline shift, or downward herniation. Cerebral ventricles: No ventriculomegaly. Paranasal sinuses: Visualized sinuses are unremarkable. No fluid levels. Mastoid air cells: Visualized mastoid air cells are well aerated. Bones: Unremarkable. No acute fracture. Soft tissues: Unremarkable. IMPRESSION: No acute intracranial abnormality.
--- NOTE | 2023-12-28 06:30 | ED_ITS ---
Discharge Plan Disposition Patient Disposition: Home, Self-Care Prescriptions Prescriptions: No Action clopidogrel [Plavix] 75 mg tablet 75 mg PO DAILY Qty: 30 7RF valsartan 160 mg tablet 160 mg PO DAILY Qty: 90 3RF esomeprazole magnesium 40 mg capsule,delayed release(DR/EC) 40 mg PO DAILY Qty: 90 5RF aspirin [Adult Low Dose Aspirin] 81 mg tablet,delayed release (DR/EC) 81 mg PO DAILY venlafaxine 150 mg capsule,extended release 24hr 150 mg PO DAILY amlodipine 10 mg tablet 5 mg PO DAILY fenofibrate nanocrystallized 145 mg tablet 145 mg PO DAILY Referrals Follow up/Referrals: Alber Becerra MD [Staff Physician] - See instructions Provider,MD Siomara [Primary Care Provider] - See instructions Activity Restrictions/Add. Instructions Additional Instructions/Restrictions: At this time it was felt you are safe to be discharged home. If new or worsening symptoms please do not hesitate to return the emergency department. Please follow-up with your family doctor for your tingling in your hands and feet as discussed as well as to keep an eye on the spot on your lung which is likely benign. With regards to your chest pain please call Dr. Becerra's clinic and get in with Charlie Costa as soon as you are able. Clinical Impressions Clinical Impression: Distal paresthesia, Chest pain, Pulmonary nodule Print Language Print Language: Irish Discharge ED Provider: Dean Jean-Baptiste HPI <Dean Jean-Baptiste MD - Last Filed: 12/28/23 07:06> General Chief Complaint: Chest Pain Stated Complaint: Bilateral UE numbness, Chest Pressure Time Seen by Provider: 12/28/23 06:19 Mode of Arrival: Ambulatory Source of Information: Patient Limitations: No Limitations Description of Symptoms (Recalled from ER Triage Doc. by RN): 73 M presents from home with c/o bilateral upper extremity numbness, right chest pressure, and a headache. These symptoms started 1 week ago and have not gotten better. Patient reports having an IA last December and received 1 stent. Patient currently takes a daily aspirin and Clopidogrel. Patient does not report any other ACS symtpoms. History of Present Illness HPI narrative: 73-year-old male with history of prostate cancer many years ago, cardiac stent on dual antiplatelet therapy presents to the ER with multiple complaints including mild left lower quadrant abdominal pain that he describes as cramping, no nausea, vomiting, diarrhea, or constipation. Last bowel movement was yesterday and was normal, nonbloody, nonmelanotic. Patient also reports right sided chest pain/pressure. He states it does not radiate. He reports having bilateral upper extremity numbness and severe pain in the hands. He also reports having intermittent sensation of walking on hot coals in the feet. Patient additionally reports a headache all over, it does not localize. Patient states his symptoms have all been going on for approximately 1 week. He denies fevers, chills, difficulty breathing, dizziness, dysuria, hematuria, or other associated symptoms. He reports being compliant with his medication but has not yet taken his aspirin this morning. Related Data Home Medications ?Medication ?Instructions ?Recorded ?Confirmed aspirin 81 mg tablet,delayed 81 mg PO DAILY 12/25/22 12/28/23 release (Adult Low Dose Aspirin) amlodipine 10 mg tablet 5 mg PO DAILY 12/28/23 12/28/23 fenofibrate nanocrystallized 145 145 mg PO DAILY 12/28/23 12/28/23 mg tablet venlafaxine 150 mg 150 mg PO DAILY 12/28/23 12/28/23 capsule,extended release 24 hr Previous Rx's ?Medication ?Instructions ?Recorded clopidogrel 75 mg tablet (Plavix) 75 mg PO DAILY #30 tabs 07/18/23 valsartan 160 mg tablet 160 mg PO DAILY #90 tabs 07/26/23 esomeprazole magnesium 40 mg 40 mg PO DAILY #90 caps 11/20/23 capsule,delayed release Allergies Allergy/AdvReac Type Severity Reaction Status Date / Time No Known Allergies Allergy Verified 07/10/23 09:44 [facility] <Dean Jean-Baptiste MD - Last Filed: 12/28/23 07:06> [facility] Disclaimer: The information contained in this section may have been updated after the patient was seen, as this information can be updated by other users. Medical History Elevated serum creatinine Nausea CAD (coronary artery disease) Abnormal stress ECG SOB (shortness of breath) on exertion Abnormal electrocardiogram [ECG] [EKG] Syncope Chest pain Hyperlipidemia Lipitor 40 mg daily Hypertension Incidental lung nodule Cardiomegaly Thoracic aortic aneurysm Cancer of prostate Diverticulitis Surgical History H/O heart artery stent Social History Smoking Status: Never smoker alcohol intake: current alcohol intake frequency: holidays/special occasions only substance use type: denies use current occupational status: retired Travel in the last 8 weeks: None Other Medical History Have you received the Flu Vaccine for this season: No Have you received the Pneumonia Vaccine: Yes <Dean Jean-Baptiste MD - Last Filed: 12/28/23 07:06> ROS Obtained: Yes All systems reviewed & no additional complaints except as documented Positive ROS per HPI Physical Exam <Dean Jean-Baptiste MD - Last Filed: 12/28/23 07:06> General General appearance: alert and in no apparent distress Head Head exam: atraumatic and normocephalic Eye Eye exam: Present PERRL and EOMI ENT ENT exam: Present mucous membranes moist Neck Neck exam: Present normal inspection, full ROM and other (Upper extremity symptoms are not exacerbated by movement of the neck); Absent tenderness Chest Chest inspection: Present symmetric chest wall rise Respiratory Respiratory exam: Present normal lung sounds bilaterally; Absent respiratory distress, wheezes or stridor Cardiovascular Cardiovascular exam: Present regular rate and normal rhythm Abdominal Exam Abdominal exam: Present soft and tenderness (Mild left lower quadrant); Absent distention, guarding or rebound Extremities Exam Extremities exam: Present full ROM and other (No traumatic findings); Absent tenderness or edema Neurological Exam Neurological exam: Present alert and oriented X3; Absent motor sensory deficit (Patient reports decreased sensation in the upper extremities however 2 point discrimination intact, patient has pain and temperature intact, full strength, sensation to light touch intact. Remainder of motor and sensory exam throughout also benign) Psychiatric Psychiatric exam: Present normal affect and normal mood Skin Skin exam: Present warm and dry HEART Score <Dean Jean-Baptiste MD - Last Filed: 12/28/23 07:06> HEART Score HEART Score assessment performed?: Yes History (anamnesis): Slightly suspicious ECG: Normal Age: >65 years Risk factors: Atherosclerosis history Troponin: </= normal limit HEART Score: 4 <Ray Greenfield MD - Last Filed: 12/28/23 08:54> HEART Score HEART Score: 4 Critical Care <Dean Jean-Baptiste MD - Last Filed: 12/28/23 07:06> Critical Care Time Critical Care Time: No Medical Decision Making <Dean Jean-Baptiste MD - Last Filed: 12/28/23 07:06> Medical Records Medical records reviewed: Yes I reviewed the patient's medical records. MR Comment: Most recent cardiology note from July 2023 demonstrates patient was having cough and sleep disturbance, they had attempted to make medication changes and recommended PCP follow-up. Curt Inquiry Pt receiving controlled substance: No Vital Signs Vital Signs: 12/28/23 06:18 12/28/23 06:20 12/28/23 06:30 Temperature 98.5 F Temperature Source Oral Pulse Rate 68 64 Pulse Rate [Apical] 63 Respiratory Rate 19 16 Blood Pressure 142/67 H Blood Pressure [Right Arm] 141/71 H Blood Pressure Mean 76 Blood Pressure Mean [Right Arm] 94 Blood Pressure Source [Right Arm] Automatic Cuff Blood Pressure Position [Right Arm] Supine 02 Sat by Pulse Oximetry 100 100 Oxygen Delivery Method Room Air Room Air 12/28/23 07:00 12/28/23 08:00 12/28/23 08:30 Temperature Temperature Source Pulse Rate 62 61 64 Pulse Rate [Apical] Respiratory Rate 18 17 18 Blood Pressure 134/71 132/65 130/69 Blood Pressure [Right Arm] Blood Pressure Mean 85 77 89 Blood Pressure Mean [Right Arm] Blood Pressure Source [Right Arm] Blood Pressure Position [Right Arm] 02 Sat by Pulse Oximetry 99 99 100 Oxygen Delivery Method Room Air Room Air Room Air Lab Data Labs: Lab Results 12/28/23 06:20: WBC 4.4 L, RBC 4.72, Hgb 14.3, Hct 41.8 L, MCV 88.7, MCH 30.2, MCHC 34.1, RDW 14.0, Plt Count 171, MPV 9.9, Neut % (Auto) 61.1, Lymph % (Auto) 25.2, [place] % (Auto) 8.3, Eos % (Auto) 4.0, Baso % (Auto) 1.4, Neut # (Auto) 2.7, Lymph # (Auto) 1.1, [place] # (Auto) 0.4, Eos # (Auto) 0.2, Baso # (Auto) 0.1, PT 11.1, INR 0.99, Sodium 135 L, Potassium 4.6, Chloride 104, Carbon Dioxide 27, Anion Gap 8.6, BUN 27 H, Creatinine 1.00, Estimated Creat Clear 74, Estimated GFR 73, Est GFR ( Amer) 89, Glucose 104 H, Calcium 9.3, Total Bilirubin 0.6, AST 43, ALT 26, Alkaline Phosphatase 35 L, Troponin I < 0.01, Total Protein 6.9, Albumin 4.2, Globulin 2.7, Albumin/Globulin Ratio 1.6, Lipase 206 12/28/23 06:35: SARS-CoV-2 (PCR) Not detected, Influenza A Untype (PCR) Not detected, Influenza Type B (PCR) Not detected 12/28/23 08:13: Troponin I < 0.01 12/28/23 06:20 12/28/23 06:20 Response Orders (Tests/Meds): ED MEDICATIONS Discontinued Medications Generic Name Dose Route Start Last Admin Trade Name Freq PRN Reason Stop Dose Admin Aspirin 324 mg 12/28/23 06:19 12/28/23 06:27 Aspirin 81mg Chewable Tablet PO 12/28/23 06:20 324 mg ONCE ONE Administration Ketorolac Tromethamine 15 mg 12/28/23 06:40 12/28/23 06:42 Ketorolac 30mg/Ml Vial IV 12/28/23 06:41 15 mg ONCE ONE Administration ORDERS Category Date Time Status CT cervical spine wo con Stat Cat Scan 12/28/23 06:[address] head/brain wo con Stat Cat Scan 12/28/23 06:29 Completed XR chest 2V Stat Exams 12/28/23 06:20 Completed Complete Blood Count Auto Diff Stat Lab 12/28/23 06:20 Completed Comprehensive Metabolic Panel Stat Lab 12/28/23 06:20 Completed HIV (1&2) Antibody Rapid Stat Lab 12/28/23 06:20 Received Hep C Ab with Reflex to RNA Stat Lab 12/28/23 06:20 Received Lipase Stat Lab 12/28/23 06:20 Completed Prothrombin Time INR Stat Lab 12/28/23 06:20 Completed Rapid PCR Covid and Flu A/B Stat Lab 12/28/23 06:35 Completed Troponin I Q3H Lab 12/28/23 08:13 Completed Troponin I Q3H Lab 12/28/23 12:30 Ordered Troponin I Stat Lab 12/28/23 06:20 Completed MDM Narrative Medical Decision Narrative: In summary, this 73-year-old male with comorbidities as described in HPI presents to the emergency department today with multiple complaints including headache, chest pain, bilateral upper extremity sensation of numbness, pain in the hands and feet, left lower quadrant abdominal pain. On initial evaluation patient is hemodynamically stable, afebrile, cardiopulmonary exam reassuring, abdominal exam with mild left lower quadrant tenderness but no rebound or guarding, neuroexam nonfocal. Differential diagnosis includes but is not limited to ACS, pneumothorax, viral syndrome, peripheral neuropathy, with the patient's history of previous cancer malignancy was considered, electrolyte abnormality, cervical spine degenerative changes, I had considered traumatic injury however patient has no history consistent with this. Based on these concerns, I ordered serum labs, cardiac workup, CT imaging. ECG personally interpreted demonstrates normal sinus rhythm, rate 63, normal axis, normal NE and QTc. Patient received Toradol, aspirin initially for treatment. Labs personally reviewed demonstrate mild leukopenia, no anemia, PT/INR normal, CMP with mild prerenal azotemia, patient is tolerating oral intake and actively drinking water. Initial troponin undetectably low at less than 0.01. Chest x-ray personally interpreted does not demonstrate acute intrathoracic abnormality. I personally interpreted CT head and do not appreciate acute intracranial abnormality such as mass. Radiology reads pending Patient handed off to Dr. Greenfield at physician shift change for further management and disposition. <Ray Greenfield MD - Last Filed: 12/28/23 08:54> Vital Signs Vital Signs: 12/28/23 06:18 12/28/23 06:20 12/28/23 06:30 Temperature 98.5 F Temperature Source Oral Pulse Rate 68 64 Pulse Rate [Apical] 63 Respiratory Rate 19 16 Blood Pressure 142/67 H Blood Pressure [Right Arm] 141/71 H Blood Pressure Mean 76 Blood Pressure Mean [Right Arm] 94 Blood Pressure Source [Right Arm] Automatic Cuff Blood Pressure Position [Right Arm] Supine 02 Sat by Pulse Oximetry 100 100 Oxygen Delivery Method Room Air Room Air 12/28/23 07:00 12/28/23 08:00 12/28/23 08:30 Temperature Temperature Source Pulse Rate 62 61 64 Pulse Rate [Apical] Respiratory Rate 18 17 18 Blood Pressure 134/71 132/65 130/69 Blood Pressure [Right Arm] Blood Pressure Mean 85 77 89 Blood Pressure Mean [Right Arm] Blood Pressure Source [Right Arm] Blood Pressure Position [Right Arm] 02 Sat by Pulse Oximetry 99 99 100 Oxygen Delivery Method Room Air Room Air Room Air Lab Data Labs: Lab Results 12/28/23 06:20: WBC 4.4 L, RBC 4.72, Hgb 14.3, Hct 41.8 L, MCV 88.7, MCH 30.2, MCHC 34.1, RDW 14.0, Plt Count 171, MPV 9.9, Neut % (Auto) 61.1, Lymph % (Auto) 25.2, [place] % (Auto) 8.3, Eos % (Auto) 4.0, Baso % (Auto) 1.4, Neut # (Auto) 2.7, Lymph # (Auto) 1.1, [place] # (Auto) 0.4, Eos # (Auto) 0.2, Baso # (Auto) 0.1, PT 11.1, INR 0.99, Sodium 135 L, Potassium 4.6, Chloride 104, Carbon Dioxide 27, Anion Gap 8.6, BUN 27 H, Creatinine 1.00, Estimated Creat Clear 74, Estimated GFR 73, Est GFR ( Amer) 89, Glucose 104 H, Calcium 9.3, Total Bilirubin 0.6, AST 43, ALT 26, Alkaline Phosphatase 35 L, Troponin I < 0.01, Total Protein 6.9, Albumin 4.2, Globulin 2.7, Albumin/Globulin Ratio 1.6, Lipase 206 12/28/23 06:35: SARS-CoV-2 (PCR) Not detected, Influenza A Untype (PCR) Not detected, Influenza Type B (PCR) Not detected 12/28/23 08:13: Troponin I < 0.01 Response Orders (Tests/Meds): ED MEDICATIONS Discontinued Medications Generic Name Dose Route Start Last Admin Trade Name Freq PRN Reason Stop Dose Admin Aspirin 324 mg 12/28/23 06:19 12/28/23 06:27 Aspirin 81mg Chewable Tablet PO 12/28/23 06:20 324 mg ONCE ONE Administration Ketorolac Tromethamine 15 mg 12/28/23 06:40 12/28/23 06:42 Ketorolac 30mg/Ml Vial IV 12/28/23 06:41 15 mg ONCE ONE Administration ORDERS Category Date Time Status CT cervical spine wo con Stat Cat Scan 12/28/23 06:[address] head/brain wo con Stat Cat Scan 12/28/23 06:29 Completed XR chest 2V Stat Exams 12/28/23 06:20 Completed Complete Blood Count Auto Diff Stat Lab 12/28/23 06:20 Completed Comprehensive Metabolic Panel Stat Lab 12/28/23 06:20 Completed HIV (1&2) Antibody Rapid Stat Lab 12/28/23 06:20 Received Hep C Ab with Reflex to RNA Stat Lab 12/28/23 06:20 Received Lipase Stat Lab 12/28/23 06:20 Completed Prothrombin Time INR Stat Lab 12/28/23 06:20 Completed Rapid PCR Covid and Flu A/B Stat Lab 12/28/23 06:35 Completed Troponin I Q3H Lab 12/28/23 08:13 Completed Troponin I Q3H Lab 12/28/23 12:30 Ordered Troponin I Stat Lab 12/28/23 06:20 Completed MDM Narrative Medical Decision Narrative: In summary, this 73-year-old male with comorbidities as described in HPI presents to the emergency department today with multiple complaints including headache, chest pain, bilateral upper extremity sensation of numbness, pain in the hands and feet, left lower quadrant abdominal pain. On initial evaluation patient is hemodynamically stable, afebrile, cardiopulmonary exam reassuring, abdominal exam with mild left lower quadrant tenderness but no rebound or guarding, neuroexam nonfocal. Differential diagnosis includes but is not limited to ACS, pneumothorax, viral syndrome, peripheral neuropathy, with the patient's history of previous cancer malignancy was considered, electrolyte abnormality, cervical spine degenerative changes, I had considered traumatic injury however patient has no history consistent with this. Based on these concerns, I ordered serum labs, cardiac workup, CT imaging. ECG personally interpreted demonstrates normal sinus rhythm, rate 63, normal axis, normal NE and QTc. Patient received Toradol, aspirin initially for treatment. Labs personally reviewed demonstrate mild leukopenia, no anemia, PT/INR normal, CMP with mild prerenal azotemia, patient is tolerating oral intake and actively drinking water. Initial troponin undetectably low at less than 0.01. Chest x-ray personally interpreted does not demonstrate acute intrathoracic abnormality. I personally interpreted CT head and do not appreciate acute intracranial abnormality such as mass. Radiology reads pending Patient handed off to Dr. Greenfield at physician shift change for further management and disposition. Ray Greenfield: Upon assumption of care patient was hemodynamically stable. Workup reviewed by me, hematologic labs are nonactionable, troponin undetectably low, 2-hour delta will be obtained. No critical electrolyte abnormalities, viral swab negative. CT imaging formal read no acute pathology. Mild to moderate multilevel spinal canal stenosis. Chest x-ray shows redemonstrated pulmonary nodules, granuloma for which patient was made aware and will follow-up on an outpatient basis. Upon repeat evaluation patient was resting comfortably in bed with resolved chest pain. Serial troponins undetectably low. Given this patient is appropriate for outpatient management at this time we will follow-up with his family doctor and Dr. Becerra.
--- NOTE | 2023-12-28 06:31 | CT_ITS ---
PROCEDURE INFORMATION: Exam: CT Cervical Spine Without Contrast Exam date and time: 12/28/2023 6:48 AM Age: 73 years old Clinical indication: Radicular pain (radiculopathy); Cervical region; Additional info: Bilateral upper extremity tingling, HX CA TECHNIQUE: Imaging protocol: Computed tomography of the cervical spine without contrast. Radiation optimization: All CT scans at this facility use at least one of these dose optimization techniques: automated exposure control; mA and/or kV adjustment per patient size (includes targeted exams where dose is matched to clinical indication); or iterative reconstruction. COMPARISON: CT CERVICAL SPINE WO CON 12/28/2023 6:48 AM FINDINGS: Bones/joints: No acute fracture. There is straightening of cervical lordosis. There is slight grade 1 anterolisthesis of C3 on C4 and C7 on T1. There is cotr-se-mfvepdra multilevel degenerative disease. There is qjfg-[id number] multilevel spinal canal stenosis secondary to disc osteophyte ridging. Lungs: Lung apices are normal. Soft tissues: Unremarkable. IMPRESSION: 1. No evidence of acute fracture. 2. Fnqm-[id number]-wpuwscim multilevel spinal canal stenosis.
--- NOTE | 2023-12-28 06:35 | PC.NURSE ---
Patient to xray via wheelchair
[2023-12-28 06:40] LABS: Basophils # 0.1 K/mm3 (0-0.2); Basophils % 1.4 % (0.1-2.0); Eosinophils # 0.2 K/mm3 (0.0-0.4); Hematocrit 41.8 % (42.0-52.0); Hemoglobin 14.3 g/dL (14.1-18.0); Lymphocytes # 1.1 K/mm3 (0.7-4.5); Lymphocytes % 25.2 % (10-50); Mean Corpuscular HGB Conc 34.1 g/dL (31.8-35.4); Mean Corpuscular Hemoglobin 30.2 pg (27.0-31.2); Mean Corpuscular Volume 88.7 fl (80-94); Mean Platelet Volume 9.9 fl (7.4-10.4); Monocytes # 0.4 K/mm3 (0.1-1.0); Monocytes % 8.3 % (1.7-9.3); Neutrophils # 2.7 K/mm3 (1.8-7.8); Neutrophils % 61.1 % (37.0-80.0); Platelet Count 171 K/mm3 (142-424); Red Blood Count 4.72 M/mm3 (4.60-6.20); White Blood Count 4.4 K/mm3 (4.8-10.8)
[2023-12-28 06:42] LABS: Albumin Level 4.2 g/dl (3.5-5.0); Chloride 104 mmol/L (98-107); Potassium 4.6 mmoL/L (3.5-5.1); Sodium 135 mmol/L (136-145)
[2023-12-28] MEDS: KETOROLAC 30MG/ML VIAL 15 MG IV (06:42)
[2023-12-28 06:44] LABS: INR 0.99 (0.9-1.1); Prothrombin Time 11.1 seconds (10.1-12.5)
--- NOTE | 2023-12-28 06:44 | PC.NURSE ---
Patient transported back from xray via wheelchair
[2023-12-28 06:45] LABS: Alanine Aminotransferase 26 U/L (12-78); Albumin/Globulin Ratio 1.6 (1.1-1.8); Alkaline Phosphatase 35 U/L (38-126); Anion Gap 8.6 mEq/L (5-15); Aspartate Amino Transferase 43 U/L (17-59); Bilirubin,Total 0.6 mg/dl (0.2-1.3); Blood Urea Nitrogen 27 mg/dl (9-20); Calcium 9.3 mg/dl (8.4-10.2); Carbon Dioxide 27 mmol/L (22.0-30.0); Creatinine Clearance Estimated 74 mL/min (50-200); Estimated Glomerular Filt Rate 73 ml/min (>60); GFR (African American) 89 ML/MIN (>60); Globulin 2.7 g/dL (1.3-3.2); Glucose 104 mg/dl (74-100); Total Protein,Serum 6.9 g/dl (6.3-8.2)
[2023-12-28 06:47] LABS: Coronavirus 19, PCR Not Detected (NotDetected); Influenza A, PCR Not Detected (NotDetected); Influenza B, PCR Not Detected (NotDetected)
[2023-12-28 07:04] LABS: Troponin I < 0.01 ng/ml (0.00-0.034)
[2023-12-28 07:12] LABS: Lipase 206 U/L (23-300)
--- NOTE | 2023-12-28 08:44 | PC.NURSE ---
Dr. Greenfield at bedside
[2023-12-28 08:48] LABS: Troponin I < 0.01 ng/ml (0.00-0.034)
[2023-12-28 09:05] LABS: HIV (1&2) Antibody Rapid NONREACTIVE (NONREACTIVE)
[2023-12-29 07:13] LABS: HCV Ab Non Reactive (Non Reactive)
== END 2023-12-28 08:59 | disposition home or self-care (01) ==
PROVIDERS: Emergency Medicine; Emergency Provider Emergency Medicine
DX: R91.1 Solitary pulmonary nodule (principal); R07.9 Chest pain, unspecified; R07.89 Other chest pain; R20.2 Paresthesia of skin; R51.9 Headache, unspecified
CPT/HCPCS: 70450; 71046; 72125; 80053; 83690; 84484; 85025; 85610; 86803; 87389; 87636; 93005; 96374; 99284; J1885

== ENCOUNTER 2024-01-25 08:00 | Outpatient (CLI) | payer MEDICARE, SELFPAY ==
--- NOTE | 2024-01-25 08:06 | XR_ITS ---
FINAL REPORT CLINICAL HISTORY: right wrist pain COMPARISON: None FINDINGS: RIGHT WRIST Three views demonstrate no acute fracture or dislocation. The visualized joint spaces are normally aligned. The soft tissues are unremarkable. IMPRESSION: No acute bony abnormality. Reviewed, Interpreted and Dictated by Timothy Sousa MD Transcribed by Doreen Schneider Authenticated and [facility]
== END 2024-01-25 23:59 | disposition home or self-care (01) ==
LOC: RAD 08:02
PROVIDERS: PCP Family Medicine; Visit Provider Physician Assistant Surgical
DX: G56.01 Carpal tunnel syndrome, right upper limb (principal)
CPT/HCPCS: 73110

== ENCOUNTER 2024-02-19 13:20 | Outpatient (CLI) | payer MEDICARE, SELFPAY ==
--- NOTE | 2024-02-19 13:20 | MR_ITS ---
FINAL REPORT TECHNIQUE: Multiplanar MR without gadolinium enhancement CLINICAL HISTORY: Xexs-sj-cjcxkyen multilevel C-spine stenosis FINDINGS: Limited images of the posterior fossa are unremarkable. Alignment is normal. Cervical spinal cord shows normal signal and contour. C2-3: Tiny central disc protrusion. C3-4: Mild diffuse disc bulge. Moderate left facet arthropathy. Mild left neuroforaminal narrowing. C4-5: Moderate diffuse disc bulge and facet arthropathy. Mild central canal stenosis and moderate bilateral neuroforaminal narrowing. C5-6: Mild diffuse disc bulge. Moderate facet arthropathy. Left paracentral disc osteophyte complex and mild left lateral recess stenosis. C6-7: Mild diffuse disc bulge and facet arthropathy. Mild central canal stenosis and moderate neuroforaminal narrowing. C7-T1: Unremarkable. IMPRESSION: Moderate diffuse degenerative changes with abnormalities most pronounced at C4-5 and C5-6. Reviewed, Interpreted and Dictated by Orestes Kowalski MD Transcribed by Maya Garcia Authenticated and . [facility]
== END 2024-02-19 23:59 | disposition home or self-care (01) ==
LOC: RAD 13:20
PROVIDERS: PCP Nurse Practitioner Family; Visit Provider Nurse Practitioner Family
DX: M48.00 Spinal stenosis, site unspecified (principal); G56.93 Unspecified mononeuropathy of bilateral upper limbs; R20.0 Anesthesia of skin; R20.2 Paresthesia of skin
CPT/HCPCS: 72141

== ENCOUNTER 2024-04-23 09:49 | Outpatient (CLI) | payer MEDICARE, SELFPAY ==
[2024-04-23 10:12] LABS: Basophils % 0.6 % (0.1-2.0); Eosinophils # 0.2 K/mm3 (0.0-0.4); Eosinophils % 3.4 % (0.1-12.0); Hematocrit 37.9 % (42.0-52.0); Lymphocytes % 20.2 % (10-50); Mean Corpuscular HGB Conc 34.3 g/dL (31.8-35.4); Mean Corpuscular Hemoglobin 31.4 pg (27.0-31.2); Mean Corpuscular Volume 91.5 fl (80-94); Mean Platelet Volume 12.2 fl (7.4-10.4); Monocytes # 0.4 K/mm3 (0.1-1.0); Monocytes % 8.9 % (1.7-9.3); Neutrophils # 3.3 K/mm3 (1.8-7.8); Neutrophils % 66.7 % (37.0-80.0); Platelet Count 180 K/mm3 (142-424); Red Blood Count 4.14 M/mm3 (4.60-6.20); Red Cell Distribution Width 12.9 % (11.5-17.5); White Blood Count 4.9 K/mm3 (4.8-10.8)
[2024-04-23 10:34] LABS: Albumin Level 4.6 g/dl (3.5-5.0); Chloride 106 mmol/L (98-107); Potassium 4.5 mmoL/L (3.5-5.1); Sodium 139 mmol/L (136-145)
[2024-04-23 10:36] LABS: Bilirubin,Unconjugated 0.3 mg/dL (0.0-1.1); Blood Urea Nitrogen 38 mg/dl (9-20); Estimated Glomerular Filt Rate 66 ml/min (>60); GFR (African American) 80 ML/MIN (>60)
[2024-04-23 10:37] LABS: Alanine Aminotransferase 30 U/L (12-78); Alkaline Phosphatase 27 U/L (38-126); Anion Gap 13.5 mEq/L (5-15); Aspartate Amino Transferase 32 U/L (17-59); Bilirubin,Direct 0.2 mg/dl (0.0-0.4); Bilirubin,Indirect 0.2 mg/dL (0.0-0.9); Bilirubin,Total 0.4 mg/dl (0.2-1.3); Calcium 9.7 mg/dl (8.4-10.2); Carbon Dioxide 24 mmol/L (22.0-30.0); Chol/HDL Ratio 3.8 (1-3.5); Cholesterol 167 mg/dl (140-200); Glucose 92 mg/dl (74-100); HDL Cholesterol 44 mg/dl (40-60); Magnesium 1.8 mg/dl (1.6-2.3); Total Protein,Serum 6.7 g/dl (6.3-8.2); Triglycerides 104 mg/dl (30-150); VLDL Cholesterol 21 mg/dL (0-40)
[2024-04-23 10:49] LABS: Direct LDL Cholesterol 87.43 mg/dL (100-129)
[2024-04-23 10:54] LABS: Free T4 (Free Thyroxine) 0.82 ng/dl (0.78-2.19)
[2024-04-23 11:08] LABS: Thyroid Stimulating Hormone 2.79 uIU/mL (0.465-4.68)
== END 2024-04-23 23:59 | disposition home or self-care (01) ==
LOC: LAB 09:49
PROVIDERS: PCP Family Medicine; Visit Provider Nurse Practitioner
DX: R05.3 Chronic cough (principal); R79.89 Other specified abnormal findings of blood chemistry; I25.10 Atherosclerotic heart disease of native coronary artery without angina pectoris; J84.9 Interstitial pulmonary disease, unspecified; R91.1 Solitary pulmonary nodule; I51.7 Cardiomegaly; I71.21 Aneurysm of the ascending aorta, without rupture
CPT/HCPCS: 80048; 80061; 80076; 83735; 84439; 84443; 85025

== ENCOUNTER 2024-07-09 11:06 | Outpatient (CLI) | payer MEDICARE, SELFPAY ==
--- NOTE | 2024-07-09 | CA_ITS ---
APPROVED REPORT Exam: Pharmacologic Technologist: Nisha Johnson Ht: 5 ft 5 in Wt: 180 lbs BSA: 1.89 m2 HR: 66 bpm BP: 147/69 mmHg Stress Test Details Test: Lexiscan HR Resting HR: 66 bpm Max Heart Rate (APMHR): 147.773292 bpm Max HR Achieved: 90 bpm Target HR (85% APMHR): 124.042836 bpm % of APMHR: 61.22 Recovery HR: 77 bpm BP Resting BP: 147.0/69.0 mmHg Max BP: 147.0/69.0 mmHg Recovery BP: 132.0/72.0 mmHg ECG Resting ECG: Normal sinus rhythm Stress ECG Conclusion Symptoms: Dyspnea Arrhythmias/Ectopy: PVC ST-T Changes: Less than [address] depression Conclusion: EKG unremarkable due to Lexiscan infusion. Electronically signed by : Jojo Valle MD 07/10/2024 13:02:50
--- NOTE | 2024-07-09 11:30 | NM_ITS ---
APPROVED REPORT Exam: Nuclear Stress Test Indication: cad, htn, c.p., sob, fatigue, abn ekg Patient Location: Outpatient Stress Tech: Nisha Johnson [place] Tech:Felisha Marie PERNELL RT (R)(N)(M) Ht: 5 ft 5 in Wt: 172 lbs HR: 66 bpm BP: 147/69 mmHg BSA: 1.86 m2 TID: 1.08 BMI: 28.6 History: cad, htn, c.p., sob, fatigue, abn ekg Procedure: Patient received 0.4 mg of intravenous Lexiscan, resting heart rate 66 bpm, resting blood pressure 147/69 mmHg, with Lexiscan maximum heart rate achieved was 92 bpm which is % of the maximum predicted heart rate and blood pressure was 125/65 mmHg. With Lexiscan, patient denied any complaint of chest pain. Cardiac Stress and Resting SPECT Images: Cardiac Stress and Resting SPECT images were obtained using technetium 99m Myoview 30.3 mCi stress and 10.80 mCi at rest. Estimate stress imaging in supine and prone position demonstrate presence of a medium sized, moderate, partially reversible perfusion defect in the basal to mid inferior and lateral LV kelley. Gated imaging demonstrates normal normal global LV systolic function. There is mild hypokinesis of the basal inferior and lateral LV wall. LVEF is calculated at 51%. Conclusion: Medium sized, moderate, partially reversible perfusion defect in the basal to mid inferior and lateral LV kelley. Findings are suggestive of partial reversible ischemia. Gated imaging demonstrates normal normal global LV systolic function. There is mild hypokinesis of the basal inferior and lateral LV wall. LVEF is calculated at 51%. Electronically signed by : Jojo Valle MD 07/10/2024 12:51:57
[2024-07-09] MEDS: SODIUM CHLORIDE 0.9% 10ML SYR (RAD ONLY) 10 ML IV ×2 (13:06)
[2024-07-09] MEDS: REGADENOSON 0.4MG/5ML SYRINGE 0.4 MG IV (13:06)
[2024-07-09] MEDS: ISOTOPE MYOVIEW (PER STUDY) 1 DOSE IV (13:06)
== END 2024-07-09 23:59 | disposition home or self-care (01) ==
LOC: RAD 11:06
PROVIDERS: PCP Family Medicine; Visit Provider Physician Assistant
DX: R94.31 Abnormal electrocardiogram [ECG] [EKG] (principal); R53.83 Other fatigue; R06.00 Dyspnea, unspecified
CPT/HCPCS: 78452; 93017; 93018; 93306; A9502; J2785

== ENCOUNTER 2024-08-05 08:21 | Day surgery (SDC) | payer MEDICARE, SELFPAY ==
[2024-08-05] VITALS (13 sets, daily range): BP systolic 102–129; BP diastolic 50–75; PULSE 64–78; RESP 16–20; O2SAT 90–96; BMI 29.7
--- NOTE | 2024-08-05 07:38 | IR_ITS ---
APPROVED REPORT Patient Location: Outpatient Lead Person: Raghav Gómez, RT (R) PROCEDURES Left heart catheterization Left ventriculogram Selective coronary angiogram Drug-eluting stent deployment to the proximal LAD Intravascular ultrasound to the proximal and mid LAD INDICATION Coronary artery disease, Abnormal Myoview, Complex intervention requiring IVUS guidance Informed consent was obtained prior to the procedure. COMPLICATIONS none Estimated Blood Loss: less than 10ml TECHNIQUE One percent lidocaine used to anesthetize the right anterior aspect of the wrist. The right radial artery was accessed via the Seldinger technique. A 6 Setswana sheath was placed in the right radial artery. 2.5 mg of Verapamil, 800 mcg of nitroglycerin, 1mg Lidocaine and 5000 U Heparin were given through the arterial sheath. The JL3 catheter was also used to perform left heart catheterization, left ventriculogram and selective coronary angiogram. At the end the diagnostic angiogram therapeutic Was administered giving a therapeutic ACT and the guide catheter was placed in the left main artery followed by Choice PT extra-support wire placed distally in the LAD. A 4 mm x 12 mm Moose frontier stent was deployed at 16 moise reducing the stenosis to 20%. A 4 mm x 8 mm noncompliant balloon was then placed in the area of under deployment and deployed at 20 moise to expand the stent and give better angiographic results. There was moderate disease in the mid LAD therefore intravascular ultrasound probe was advanced to assess the expansion and apposition of the proximal LAD stent as well as better evaluate the mid LAD disease. The stent was perfectly sized with excellent expansion and excellent proximal distal transitioning. There was moderate disease in the mid LAD none of which met a 4 mm??? MLA criteria. The apparatus was removed the sheath was removed and hemostasis was achieved using TR banding patient was transferred to the postop boarding area in stable condition ANGIOGRAPHIC RESULTS The left main artery Normal The left anterior descending artery Has a proximal eccentric 70% stenosis with mid vessel 40 and 50% stenoses. The LAD is large and wraps the apex The circumflex artery Is codominant with 20% stenosis in the first obtuse marginal artery 10% luminal regularities in the second obtuse marginal artery The right coronary artery Is codominant and has distal 30% stenoses The OLIVIA ventriculogram reveals Normal 60% The left ventricular end-diastolic pressure 10 mmHg IMPRESSION Severe proximal LAD disease as described above Successful stenting the proximal LAD severe disease reduced to 0% with 1 drug-eluting stent Successful diagnostic intravascular ultrasound demonstrating nonflow limiting disease in the mid LAD and excellent expansion and placement of the proximal LAD stent Mild nonflow limiting disease in the circumflex and right coronary arteries Normal ejection fraction Normal LVEDP PLAN 1. Effient and aspirin 2. LDL less than 55 achieved high intensity statin 3. Avoidance of tobacco products 4. Risk factor modification 5. Cardiac rehabilitation Electronically signed by : Alber Becerra MD 08/05/2024 11:45:35
[2024-08-05 09:09] LABS: Basophils % 0.5 % (0.1-2.0); Eosinophils # 0.2 Kmm3 (0.0-0.4); Eosinophils % 3.3 % (0.1-12.0); Hematocrit 34.7 % (42.0-52.0); Hemoglobin 11.6 g/dL (14.1-18.0); Immature Granulocytes # 0.02 10^3uL; Immature Granulocytes % 0.3 %; Lymphocytes # 0.8 K/mm3 (0.7-4.5); Lymphocytes % 14.5 % (10-50); Mean Corpuscular HGB Conc 33.4 g/dL (31.8-35.4); Mean Corpuscular Hemoglobin 29.8 pg (27.0-31.2); Mean Corpuscular Volume 89.2 fl (80-94); Mean Platelet Volume 12.2 fl (7.4-10.4); Monocytes # 0.5 K/mm3 (0.1-1.0); Monocytes % 8.1 % (1.7-9.3); Neutrophils # 4.2 K/mm3 (1.8-7.8); Neutrophils % 73.3 % (37.0-80.0); Nucleated Red Blood Cells # 0 10^3/uL; Nucleated Red Blood Cells % 0 %; Platelet Count 182 K/mm3 (142-424); Red Blood Count 3.89 M/mm3 (4.60-6.20); Red Cell Distribution Width 13.3 % (11.5-17.5); Red Cell Distribution Width-SD 43.5 fL; White Blood Count 5.8 K/mm3 (4.8-10.8)
[2024-08-05 09:19] LABS: Chloride 107 mmol/L (98-107); Potassium 4.3 mmoL/L (3.5-5.1); Sodium 138 mmol/L (136-145)
[2024-08-05 09:22] LABS: Anion Gap 10.3 mEq/L (5-15); Blood Urea Nitrogen 35 mg/dl (9-20); Calcium 9.2 mg/dl (8.4-10.2); Carbon Dioxide 25 mmol/L (22.0-30.0); Creatinine Clearance Estimated 76 mL/min (50-200); Estimated Glomerular Filt Rate 73 ml/min (>60); GFR (African American) 89 ML/MIN (>60); Glucose 112 mg/dl (74-100)
[2024-08-05] MEDS: LIDOCAINE 1% 10ML MDV 10 ML IJ (11:04)
[2024-08-05] MEDS: HEPARIN 1,000 UNITS/500ML NS (CATH LAB) 3000 UNIT IV (11:04)
[2024-08-05] MEDS: VERAPAMIL 2.5MG/ML 2ML VIAL 2.5 MG IV (11:05)
[2024-08-05] MEDS: HEPARIN 1,000 UNITS/ML 10ML VIAL (CATH LAB) 5000 UNIT IV (11:05)
[2024-08-05] MEDS: 0.9 % SODIUM CHLORIDE 500 ML 25 ML IV (11:05)
[2024-08-05] MEDS: FENTANYL 100MCG/2ML VIAL 50 MCG IV (11:06)
[2024-08-05] MEDS: NITROGLYCERIN 800MCG/8ML SYR (CATH LAB) 800 MCG IA (11:06)
[2024-08-05] MEDS: diphenhydrAMINE 50MG/ML VIAL 50 MG IV (11:06)
[2024-08-05] MEDS: MIDAZOLAM HCL 1MG/ML 5ML VIAL 1 MG IV (11:06)
[2024-08-05] MEDS: CLOPIDOGREL 75MG TAB 75 MG PO (11:47)
--- NOTE | 2024-08-05 11:48 | SUR.PHASEII ---
Beta aakash to be addressed at follow up, none at this time per MD
--- NOTE | 2024-08-05 14:33 | SUR.PHASEII ---
clinic pharmacy called this RN to inform pt that the rosuvastatin ordered would not be covered under insurance because he has had previous refills and insurance would not cover the medication until 08/28/24. pt informed
[2024-08-05] MEDS: IOPAMIDOL-370 (76%);100ML BOTTLE 110 ML IV (14:44)
[2024-08-05 14:47] LABS: CATHL Activated Clotting Time 269 SEC (74-125)
== END 2024-08-05 14:45 | disposition home or self-care (01) ==
PROVIDERS: PCP Family Medicine; Visit Provider Internal Medicine
PROC: 4A023N7 Measurement of Cardiac Sampling and Pressure, Left Heart, Percutaneous Approach (ICD-10-PCS; CPT 93452; principal; 2024-08-05 08:30)
DX: I25.10 Atherosclerotic heart disease of native coronary artery without angina pectoris (principal); R94.31 Abnormal electrocardiogram [ECG] [EKG]; E78.5 Hyperlipidemia, unspecified; R53.83 Other fatigue; I71.20 Thoracic aortic aneurysm, without rupture, unspecified; I11.9 Hypertensive heart disease without heart failure; Z79.02 Long term (current) use of antithrombotics/antiplatelets; Z79.82 Long term (current) use of aspirin; Z79.899 Other long term (current) drug therapy; Z95.5 Presence of coronary angioplasty implant and graft
CPT/HCPCS: 92978; 93458; C9600; 80048; 85025; 85347; 99152; 99153; C1725; C1769; C1874; J1200; J1644; J3010; Q9967

== ENCOUNTER 2024-10-11 10:23 | Emergency (ER) | payer MEDICARE, SELFPAY ==
[2024-10-11 10:29] VITALS: BP 113/76; PULSE 74; RESP 18; TEMP 37.1; O2SAT 98; BMI 29.3
--- NOTE | 2024-10-11 10:29 | ED_ITS ---
Discharge Plan Disposition Patient Disposition: Home, Self-Care Condition: Good Prescriptions Prescriptions: New methocarbamol 500 mg tablet 500 mg PO Q8H PRN (Reason: muscle spasm) Qty: 30 0RF No Action esomeprazole magnesium 40 mg capsule,delayed release(DR/EC) 40 mg PO DAILY Qty: 90 5RF clopidogrel 75 mg tablet See Rx Instructions .ROUTE .COMPLEX Qty: 90 3RF Dose Instruction: TAKE 1 TABLET BY MOUTH DAILY. Rx Instructions: TAKE 1 TABLET BY MOUTH DAILY. valsartan 160 mg tablet 160 mg PO DAILY Qty: 90 3RF aspirin [Adult Low Dose Aspirin] 81 mg tablet,delayed release (DR/EC) 81 mg PO DAILY venlafaxine 150 mg capsule,extended release 24hr 150 mg PO DAILY fenofibrate nanocrystallized 145 mg tablet 145 mg PO DAILY rosuvastatin [Crestor] 20 mg Tablet 20 mg PO DAILY Qty: 30 3RF Referrals Follow up/Referrals: Salvador Lamb MD [Primary Care Provider, [facility]] - See instructions Activity Restrictions/Add. Instructions Additional Instructions/Restrictions: there is no evidence of fracture or malalignment of the vertebrae. You likely have a muscle strain. You can take Tylenol, ibuprofen, ice packs and heating pads on the area to help with symptoms. I am also prescribing Robaxin, which is a muscle relaxer, to help with your symptoms. If you develop any new or worsening symptoms, or if you become concerned for your health for any reason, return to the emergency department for evaluation Clinical Impressions Clinical Impression: Neck pain Instructions Patient Instructions: DI for Neck Pain Print Language Print Language: Maltese Discharge ED Provider: Joey Barry Adult HPI General Chief complaint: Neck Pain/Injury Stated complaint: AO neck pain Time Seen by Provider: 10/11/24 10:29 Mode of Arrival: Ambulatory Source of Information: Patient Limitations: No Limitations History of Present Illness HPI narrative: Zoltan Ritter is a 74-year-old male with a history of coronary artery stents on aspirin who presents to the emergency department for complaints of neck pain. Patient states that 6 days ago, he was attempting to pull cattails out from around his pond and wrapped a rope around the cattails and then tied the end of the rope to his 0 turn mower. He then jerked his neck around multiple times. He states that he thinks he got whiplash from it. The following day, he devel oped pain in the middle of his neck and bilateral shoulder areas. He has been taking Tylenol, 1 muscle relaxer yesterday, Beng[place] without relief. He states that symptoms seem to be getting worse. He spoke to a friend who encouraged him to come to the emergency department. He denies any numbness, tingling or weakness. He has been ambulatory since the incident. Related Data Home Medications ?Medication ?Instructions ?Recorded ?Confirmed aspirin 81 mg tablet,delayed 81 mg PO DAILY 12/25/22 0 08/12/24 release (Adult Low Dose Aspirin) fenofibrate nanocrystallized 145 145 mg PO DAILY 12/2708/12/24 mg tablet venlafaxine 150 mg 150 mg PO DAILY 12/28/2311/28 capsule,extended release 24 hr Previous Rx's ?Medication ?Instructions ?Recorded esomeprazole magnesium 40 mg 40 mg PO DAILY #90 caps 0 11/20/23 capsule,delayed release clopidogrel 75 mg tablet See Rx Instructions .Route 0 04/09/24 .COMPLEX #90 tabs valsartan 160 mg tablet 160 mg PO DAILY #90 tabs rosuvastatin 20 mg tablet (Crestor) 20 mg PO DAILY #30 tabs 08/05/24 methocarbamol 500 mg tablet 500 mg PO Q8H PRN muscle s pasm #30 10/11/24 tabs Allergies Allergy/AdvReac Type Severity Reaction Status Date / Time No Known Allergies Allergy Verified 08/12/24 11:19 [facility] Disclaimer: The information contained in this section may have been updated after the patient was seen, as this information can be updated by other users. Medical History Abnormal electrocardiogram [ECG] [EKG] Elevated serum creatinine Nausea CAD (coronary artery disease) Abnormal stress ECG SOB (shortness of breath) on exertion Syncope Chest pain Hyperlipidemia Lipitor 40 mg daily Hypertension Incidental lung nodule Cardiomegaly Thoracic aortic aneurysm Cancer of prostate Diverticulitis Surgical History History of cardiac cath H/O heart artery stent Social History Smoking Status: Never smoker alcohol intake: current alcohol intake frequency: holidays/special occasions only substance use type: denies use current occupational status: retired Travel in the last 8 weeks?: None Have you lived/traveled outside US in past 30 days?: No Contact w/someone who lives/traveled outside US past 30 days?: No Exposure to someone with infectious disease in past 14 days?: No Do you have a fever (greater than 100.4 F or 38 C)?: No Have you tested positive for COVID-19?: No Exposed to someone with COVID-19 in past 14 days?: No Do you have a sore throat?: No Do you have a cough?: No Do you have any weakness?: No Do you have any diarrhea?: No Are you experiencing any unusual bleeding?: No Do you have any muscle aches/pain?: No Do you have any abdominal pain?: No Are you experiencing loss of taste or smell?: No Other Medical History Have you received the Flu Vaccine for this season: No Have you received the Pneumonia Vaccine: Yes ROS Obtained: Yes Systems reviewed as appropriate & no additional complaints except as documented Physical Exam General General appearance: alert and in no apparent distress Head Head exam: atraumatic Eye Eye exam: Present normal appearance ENT ENT exam: Present normal external ear exam Neck Neck exam: Present full ROM Chest Chest inspection: Present symmetric chest wall rise Respiratory Respiratory exam: Present normal lung sounds bilaterally; Absent respiratory distress Cardiovascular Cardiovascular exam: Present regular rate and normal rhythm Abdominal Exam Abdominal exam: Absent distention exam: Present deferred Extremities Exam Extremities exam: Present normal inspection and other (Tenderness over the soft tissues of the bilateral shoulders, following the trapezius distribution) Back Exam Back exam: Present normal inspection and tenderness (Midline cervical spine tenderness without step-off or deformity. No midline thoracic spine tenderness.) Neurological Exam Neurological exam: Present alert and oriented X3 Psychiatric Psychiatric exam: Present normal affect Skin Skin exam: Present warm and dry Medical Decision Making Medical Records Screening: Per USPSTF and CDC recommendations, given the prevalence of disease in our region, it is our hospital?s policy to screen for HIV and viral Hepatitis for all patients aged 18 and over and those with ongoing risk factors. Curt Inquiry Pt receiving controlled substance: No Vital Signs: 10/11/24 10:29 10/11/24 10:45 10/11/24 11:01 Temperature 98.7 F Temperature Source Oral Pulse Rate 85 79 Pulse Rate [Right Brachial] 74 Respiratory Rate 18 Blood Pressure 109/72 L 123/91 H Blood Pressure [Right Arm] 113/76 Blood Pressure Mean [Right Arm] 88 Blood Pressure Source Blood Pressure Source [Right Arm] Automatic Cuff Blood Pressure Position Blood Pressure Position [Right Arm] Sitting 02 Sat by Pulse Oximetry 98 97 98 Oxygen Delivery Method Room Air 10/11/24 11:15 10/11/24 11:30 10/11/24 12:58 Temperature 97.8 F Temperature Source Oral Pulse Rate 79 74 76 Pulse Rate [Right Brachial] Respiratory Rate 18 Blood Pressure 135/70 140/75 122/62 Blood Pressure [Right Arm] Blood Pressure Mean [Right Arm] Blood Pressure Source Automatic Cuff Blood Pressure Source [Right Arm] Blood Pressure Position Sitting Blood Pressure Position [Right Arm] 02 Sat by Pulse Oximetry 97 97 Oxygen Delivery Method Room Air Orders (Tests/Meds): ED MEDICATIONS Discontinued Medications Generic Name Dose Route Start Last Admin Trade Name Freq PRN Reason Stop Dose Admin Acetaminophen 1,000 mg 10/11/24 10:37 10/11/24 10:44 Acetaminophen 500mg Tab PO 10/11/24 10:38 1,000 mg ONCE ONE Administration Ibuprofen 800 mg 10/11/24 10:38 10/11/24 10:44 Ibuprofen 800 Mg Tablet PO 10/11/24 10:39 800 mg ONCE ONE Administration Methocarbamol 1,000 mg 10/11/24 10:39 10/11/24 10:44 Methocarbamol 500mg Tablet PO 10/11/24 10:40 1,000 mg ONCE ONE Administration ORDERS Category Date Time Status CT cervical spine wo con Stat Cat Scan 10/11/24 10:37 Completed Medical Decision Narrative: Zoltan Ritter is a 74-year-old male with a history of coronary artery stents on aspirin who presents to the emergency department for complaints of neck pain. Patient states that 6 days ago, he was attempting to pull cattails out from around his pond and wrapped a rope around the cattails and then tied the end of the rope to his 0 turn mower. He then jerked his neck around multiple times. He states that he thinks he got whiplash from it. The following day, he developed pain in the middle of his neck and bilateral shoulder areas. He has been taking Tylenol, 1 muscle relaxer yesterday, Helen without relief. He states that symptoms seem to be getting worse. He spoke to a friend who encouraged him to come to the emergency department. He denies any numbness, tingling or weakness. He has been ambulatory since the incident. On arrival, patient is normotensive, heart rate within normal limits, breathing comfortably on room air with oxygen saturation 98% SpO2. Physical exam, stated above, revealed an overall well-appearing male in no distress. He has tenderness along the mid cervical spine without deformity or step-off. No thoracic spine tenderness. He has tenderness over the soft tissues of both shoulders, following the trapezius muscle distribution. He is moving all extremities with no focal weakness. Differential diagnosis includes, but is not limited to: Muscle strain, cervical spine fracture, malalignment of the cervical spine, disc herniation, among others. The most morbid conditions were considered and workup was based on these. Workup in the emergency room included: CT cervical spine without contrast. There is no indication for laboratory studies at this time as it would not change ED management. Patient was treated with 1 g of oral Tylenol, 800 mg of oral ibuprofen, and 1000 mg of oral Robaxin. Chart review demonstrated that patient had cervical spine MRI performed on 02/19/2024 that showed moderate diffuse degenerative changes with abnormalities most pronounced at C4-C5 and C5-C6 Cervical spine imaging was interpreted by me personally and demonstrated no cervical spine fracture, no malalignment. There is degenerative changes and some foraminal foramen narrowing, however no acute pathology is noted. See final radiology report for details. Patient symptomatology is most consistent with a muscle strain. Will recommend Tylenol, ibuprofen and will prescribe Robaxin. Also encouraged ice packs and heating pads to help with his symptoms. Patient was encouraged to follow-up with his primary care physician if symptoms do not improve. Return precautions were provided. All questions were answered. He demonstrated understanding and was in agreement this plan. He was then discharged from the emergency department in stable condition. Critical Care Critical Care Time Critical Care Time: No
--- OUTSIDE RECORDS SUMMARY | 2024-10-11 10:32 | XMS_ITS | Clinical Summary ---
Author Organization [facility] Address [address], [address] [place] [address] Care Team Providers Care Coordinator Of Placement Name Role Phone Mary Anne Parekh MD, Harold Primary Care Provider U navailable Allergies No known active allergies Medications esomeprazole Magnesium (NEXIUM) 40 MG PACK Take 40 mg by mouth daily Active venlafaxine (EFFEXOR) 75 MG tablet Take 150 mg by mouth daily Active oxyCODONE HCl ER 10 MG CR tablet Take 10 mg by mouth every 8 hours Active predniSONE (DELTASONE) 5 MG tablet Take 1 tablet by mouth 2 times daily 60 tablet 5 6 Active prochlorperazine (COMPAZINE) 10 MG tablet Take 1 tablet by mouth every 6 hours as needed (nausea) 40 tablet 3 6 Active ondansetron (ZOFRAN) 8 MG tablet Take 1 tablet by mouth every 8 hours as needed for Nausea or Vomiting 40 tablet 3 6 Active Nutritional Supplements (PROSTATE 2.4 PO) Take by mouth Active ondansetron (ZOFRAN-ODT) 8 MG disintegrating tablet Take 8 mg by mouth every 8 hours as needed for Nausea or Vomiting Active zolpidem (AMBIEN) 10 MG tablet Take 1 tablet by mouth nightly as needed for Sleep 30 tablet 3 6 Active Active Problems Problem Noted Date Diagnosed Date Primary osteoarthritis of left knee 11/06/2015 Secondary malignant neoplasm of bone 10/27/2015 Abnormal radionuclide bone scan 10/06/2015 Reactive depression 10/06/2015 History of prostatectomy 10/06/2015 Malignant neoplasm of prostate 09/25/2015 Cancer Staging:Clinical:Stage IV(T1, N0, M1b, PSA: Less than 10, Lillian 8-10) - Signed by Shayne Castellanos MD on 10/27/2015 Pathologic: Unsigned Resolved Problems Problem Noted Date Diagnosed Date Resolved Date Metastasis to bone 09/25/2015 6 Social History Tobacco Use Types Packs/Day Years Used Date Smoking Tobacco: Never Sex and Gender Information Value Date Recorded Sex Assigned at Not on file Legal Sex Male 5:01 PM EDT Gender Identity Not on file Sexual Orientation Not on file Last Filed Vital Signs Vital Sign Reading Time Taken Comments Blood Pressure 124/64 09/13/2016 10:46 AM EDT Pulse 76 09/13/2016 10:46 AM EDT Temperature 37 C (98.6 F) 09/13/2016 10:46 AM EDT Respiratory Rate 16 09/13/2016 10:46 AM EDT Oxygen Saturation - - Inhaled Oxygen Concentration - - Weight 82.1 kg (181 lb) 09/13/2016 10:46 AM EDT Height 162.6 cm (5' 4 ) 09/13/2016 10:46 AM EDT Body Mass Index 31.07 09/13/2016 10:46 AM EDT Plan of Treatment Not on file Insurance [employer] Care Teams Coordinator Of Placement Relationship Specialty Start Date End Date Logan North MD [address] [place] [address] PCP - General 11/06/15
--- OUTSIDE RECORDS SUMMARY | 2024-10-11 10:32 | XMS_ITS | CCD ---
Author Name Interface, [id number] lity Address [address] [place] [address] Organization [facility] Address [address] [place] [address] Care Team Providers Care Carding Utility Tender Name Role Phone Jasmin BRAMBILA, Shayne Wahl Unavailable Unavailable Allergies and Adverse Reactions Care Plan Reason for Visit Encounters Functional Status Diagnostic Results Medications Administered Medications Patient Education Problems Procedures Social History Visits Vital Signs Notes Section
--- OUTSIDE RECORDS SUMMARY | 2024-10-11 10:32 | XMS_ITS | Clinical Summary ---
Author Organization [facility] Address [facility] [place] [address] Care Team Providers Care Counseling Services Manager Name Role Phone Unavailable Primary Care Provider Unavailabl e Source Comments [facility] is fully rolled out with thefollowing exceptions:General Clinical Research [facility] Social History Tobacco Use Types Packs/Day Years Used Date Smoking Tobacco: Never Assessed Sex and Gender Information Value Date Recorded Sex Assigned at Not on file Legal Sex Male 5:36 AM EST Gender Identity Not on file Sexual Orientation Not on file Plan of Treatment Health Maintenance Due Date Last Done Comments MMR IMMUNIZATION (1 of 1 - S tandard series) 06/02/1952 DTAP/Tdap/Td IMMUNIZATION (1 - Tdap) 06/02/1958 VARICELLA IMMUNIZATION (1 of 2 - 13+ 2-dose series) 06/02/1964 COVID-19 Vaccine ( - 2023-2 5 season) 2023 AMB SEASONAL FLU VACCINE (#1) 11/04/2024 Respiratory Syncytial Virus (RSV) >60yo or (1 - 1-dose 75+ series) 06/02/2026 HEPATITIS B IMMUNIZATION Aged Out No longer eligible based on patient's age to complete this topic HIB IMMUNIZATION Aged Out No longer e ligible based on patient's age to complete this topic HPV IMMUNIZATION Aged Out No longer e ligible based on patient's age to complete this topic IPV IMMUNIZATION Aged Out No longer e ligible based on patient's age to complete this topic MCV4 IMMUNIZATION Aged Out No longer eligible based on patient's age to complete this topic MENINGOCOCCAL B VACCINE Aged Out No l onger eligible based on patient's age to complete this topic Respiratory Syncytial Virus (RSV) <20mo Aged Out No longer eligible b ased on patient's age to complete this topic Insurance [employer] MEDICARE COMPLETE * Guarantor: Zoltan Ritter Account Type Relation to Patient Date of Phone Billing Address [facility] Reference Lab Self [address] [place] [address] MEDICARE [place]
--- OUTSIDE RECORDS SUMMARY | 2024-10-11 10:33 | XMS_ITS | Encounter Summary ---
Author Organization [facility] Address [address] [place] [address] Care Team Providers Care Neurodiagnostic Technologist Name Role Phone Unavailable Primary Care Provider Unavailabl e Encounter Details Date Type Department Care Team (Late st Contact Info) Description 01/08/2019 Lab Requisition [facility] Department of Laboratory Services [address] [place] [phone] Charli Rey M.D. Clinical Labs [address] [place] [address], [address] [place], [place] [id number] Shayne Castellanos M.D. [address] [facility] [place] [address] Social History Tobacco Use Types Packs/Day Years Used Date Smoking Tobacco: Never Assessed Sex and Gender Information Value Date Recorded Sex Assigned at Not on file Legal Sex Male 5:36 AM EST Gender Identity Not on file Sexual Orientation Not on file documented as of this encounter Plan of Treatment Not on file documented as of this encounter Procedures Procedure Name Priority Date/Time Associated Diagnosis Comments COMPREHENSIVE METABOLIC PANEL Routine 01/08/2019 12:38 PM EST PSA TOTAL Routine 01/08/2019 12:38 PM EST documented in this encounter Results * (ABNORMAL) Comp Metabolic Panel (BMP+Alb,TProt,AST,ALT,Alk phos,Tbili) (01/08/2019 12:38 PM EST) Potassium 3.9 3.5 - 5.1 mmol/L 01/08/2019 6:51 PM EST [facility] Chloride 103 98 - 107 mmol/L 01/08/2019 6:51 PM [facility] Carbon Dioxide 28 20 - 31 mmol/L 01/08/2019 6:51 PM [facility] Anion Gap 12 4 - 15 mmol/L 01/08/2019 6:51 PM [facility] Blood Urea Nitrogen 18 9 - 23 mg/dL 01/08/2019 6:51 PM [facility] Creatinine 0.95 0.60 - 1.10 mg/dL 01/08/2019 6:51 PM [facility] Bun/Creatinine Ratio 18.95 <=25.00 07/2018 6:51 PM [facility] Glucose 128(H) 74 - 106 mg/dL 01/08/2019 6:51 PM [facility] Calcium 9.5 8.3 - 10.6 mg/dL 01/08/2019 6:51 PM [facility] Albumin 4.3 3.4 - 5.0 gm/dL 01/08/2019 6:51 PM [facility] Alkaline Phosphatase 51 46 - 116 unit/L 01/08/2019 6:51 PM [facility] Alanine Aminotransferase 34 <=49 unit/L 01/08/2019 6:51 PM [facility] Aspartate Aminotransferase 33 <=33 unit/L 01/08/2019 6:51 PM [facility] Bilirubin Total 0.4 0.1 - 1.2 mg/dL 01/08/2019 6:51 PM [facility] Globulin 2.4 gm/dl 01/08/2019 6:51 PM [facility] Albumin/Globulin Ratio 2 1 - 2 01/08/2019 6:51 PM [facility] Estimated Gfr 01/08/2019 6:51 PM [facility] Comment:Estimated GFR Massiel n British calculated using MDRD study equation. Estimated Gfr Non >60 >=60 mL/min/1. 73m2 01/08/2019 6:51 PM [facility] Sodium 143 136 - 145 mmol/L 01/08/2019 6:51 PM [facility] TOTAL PROTEIN LEVEL 6.7 5.7 - 8.2 gm/dL 01/08/2019 6:51 PM [facility] Blood specimen (specimen) 01/08/2019 12:38 PM EST 01/08/2019 6:28 PM EST Shayne Castellanos M.D. CHEMISTRY ORDERABLES [facility] Result Performing Organization Address [facility] Co de Phone Number [facility] [address] [place] [address], [place] * PSA Total (01/08/2019 12:38 PM EST) Prostate Specific Antigen <0.04 <=4.00 ng/mL 01/08/2019 6:51 PM EST [facility] Comment: A new method is in use, effective 17 May 2018; results vary between patients, but on average, elevated values with the new assay will be about 20% lower than results from assays prior to 17 May 2018. Blood specimen (specimen) 01/08/2019 12:38 PM EST 01/08/2019 6:28 PM EST Shayne Castellanos M.D. CHEMISTRY ORDERABLES [facility] Result Performing Organization Address [facility] Co de Phone Number [facility] [address] [place] [address], [place] documented in this encounter Visit Diagnoses Not on filedocumented in this encounter
--- OUTSIDE RECORDS SUMMARY | 2024-10-11 10:33 | XMS_ITS | Encounter Summary ---
Author Organization [place] [address] Care Team Providers Care Flavor Room Worker Name Role Phone Mary Anne Parekh MD, Logan Primary Care Provider + Shayne Castellanos MD Unavailable [phone] Encounter Details Date Type Department Care Team (Late st Contact Info) Description 04/21/2011 Orders Only SEP Gastro [facility] [address] [phone] Charli Ramos MD Social History Tobacco Use Types Packs/Day Years Used Date Smoking Tobacco: Never Smokeless Tobacco: Never Alcohol Use Standard Drinks/Week Comments Yes 20 (1 standard drink = 0.6 oz pu re alcohol) Sex and Gender Information Value Date Recorded Sex Assigned at Not on file Legal Sex Male 10:46 PM EDT Gender Identity Not on file Sexual Orientation Not on file documented as of this encounter Plan of Treatment Not on file documented as of this encounter Procedures Procedure Name Priority Date/Time Associated Diagnosis Comments GMED COLONOSCOPY Routine 04/21/2011 12:0 0 AM EST documented in this encounter Results * GMED COLONOSCOPY (04/21/2011 12:00 AM EST) 04/21/2011 Impressions [facility] - 04/21/2011 8:10 AM EST Polyp at 17cm in the distal sigmoid colon and proximal rectum (polypectomy) Diverticulosis of the sigmoid colon Otherwise normal colonoscopy to cecum Narrative [facility] - 04/21/2011 8:10 AM EST Performing Provider: Charli Ramos M.D. Referring Provider: Logan North MD us Charli Ramos MD GI PROCEDURE ORDERABLES Aurora l Result [facility] [address] [place] [id number] documented in this encounter Visit Diagnoses Not on filedocumented in this encounter Care Teams Flavor Room Worker Relationship Specialty Start Date End Date Logan North MD [address] [place] [address] PCP - General 09/16/10 Shayne Castellanos MD [address] [place] [address] PCP - Hematology/Oncology Internal Medicine 06/17/15 documented as of this encounter
--- OUTSIDE RECORDS SUMMARY | 2024-10-11 10:33 | XMS_ITS | Encounter Summary ---
Author Organization [facility] Address [address] [place] [address] Care Team Providers Care Software Licensing Analyst Name Role Phone Unavailable Primary Care Provider Unavailabl e Encounter Details Date Type Department Care Team (Late st Contact Info) Description 10/10/2019 Lab Requisition [facility] Department of Laboratory Services [address] [place] [phone] Charli Rey M.D. Clinical Labs [address] [place] [address], [address] [place] [address] Shayne Castellanos M.D. [address] [employer], [facility]. [address] [place] [address] Social History Tobacco Use Types Packs/Day Years [...] Procedure Name Priority Date/Time Associated Diagnosis Comments PSA TOTAL Routine 10/10/2019 10:24 AM EDT documented in this encounter Results * PSA Total (10/10/2019 10:24 AM EDT) Prostate Specific Antigen <0.04 <=4.00 ng/mL 10/10/2019 4:37 PM EDT [facility] Blood 10/10/2019 10:2 4 AM EDT 10/10/2019 4:08 PM EDT Narrative [facility] - 10/10/2019 4:37 PM EDT A new method is in use, effective 17 May 2018; results vary between patients, but on average, elevated values with the new assay will be about 20% lower than results from assays prior to 17 May 2018. Shayne Castellanos M.D. CHEMISTRY ORDERABLES Aurora james Result [facility] [address] [place] [place] [id number], documented in this encounter Visit Diagnoses Not on filedocumented in this encounter
--- OUTSIDE RECORDS SUMMARY | 2024-10-11 10:33 | XMS_ITS ---
Author Organization [facility] Address [address] [facility], [address] [place] [address] Care Team Providers Care Heating Worker Name Role Phone Mary Anne Parekh MD, Harold Primary Care Provider U navailable Active Problems Problem Noted Date Diagnosed Date Primary osteoarthritis of left knee 11/06/2015 Secondary malignant neoplasm of bone 10/27/2015 Abnormal radionuclide bone scan 10/06/2015 Reactive depression 10/06/2015 History of prostatectomy 10/06/2015 Malignant neoplasm of prostate 09/25/2015 Cancer Staging:Clinical:Stage IV(T1, N0, M1b, PSA: Less than 10, [place] 8-10) - Signed by Shayne Castellanos MD on 10/27/2015 Pathologic: Unsigned Current Treatment and Therapy Plans No current plan information found. Past Treatment and Therapy Plans Oncology Treatment Plan Name Start Date Discontinue Date Treatment Medications Discontinue Reason Plan Provider Cycles DOCEtaxel + PredniSONE q21d 12/29/19 16 05/17/2016 dexAMETHasone (DECADRON)diphenh ydrAMINE (BENADRYL)DOCEtax el (TAXOTERE) chemo IVPBfamotidine (PEPCID)LORazepam (ATIVAN)methylPRE DNISolone sodium succ (SOLU-MEDROL)OHC premed mixture Therapy Complete Shayne Castellanos MD 6 of 6 cycles started Oncology Treatment Plan 2 Plan Name Start Date Discontinue Date Treatment Medications Discontinue Reason Plan Provider Cycles [facility] Agonist: Lupron every 12 weeks 6 06/30/2017 dexAMETHasone (DECADRON)diphen hydrAMINE (BENADRYL)leupro lide (LUPRON)LORazepa m (ATIVAN)methylPR EDNISolone sodium succ (SOLU-MEDROL) Therapy Complete Shayne Castellanos MD 4 of 4 cycles started Resolved Problems Problem Noted Date Diagnosed Date Resolved Date Metastasis to bone 09/25/2015 6
--- OUTSIDE RECORDS SUMMARY | 2024-10-11 10:33 | XMS_ITS | Encounter Summary ---
Author Organization [facility] Address [address] [place] [address] Care Team Providers Care Fisher Reef Net Name Role Phone Unavailable Primary Care Provider Unavailabl e Encounter Details Date Type Department Care Team (Late st Contact Info) Description 07/09/2019 Lab Requisition [facility] Department of Laboratory Services [address] [place] [phone] Charli Rey M.D. Clinical Labs [address] [place] [address], [address] [place] [address] Joan Marie APRN-INFORMATION CLERK [employer] [address] [facility], [facility] [address] [place] [address] Social History Tobacco Use Types Packs/Day Years [...] Date/Time Associated Diagnosis Comments PSA TOTAL Routine 07/09/2019 10:43 AM EDT documented in this encounter Results * PSA Total (07/09/2019 10:43 AM EDT) Prostate Specific Antigen <0.04 <=4.00 ng/mL 07/09/2019 6:10 PM EDT [facility] Blood specimen (specimen) 07/09/2019 10:43 AM EDT 07/09/2019 5:44 PM EDT Narrative [facility] - 07/09/2019 6:10 PM EDT A new method is in use, effective 17 May 2018; results vary between patients, but on average, elevated values with the new assay will be about 20% lower than results from assays prior to 17 May 2018. Joan Marie BAKER DOUGHNUT-INFORMATION CLERK [employer] CHEMISTRY ORDERABLES Final Result [facility] [address] [place] [address], [place] documented in this encounter Visit Diagnoses Not on filedocumented in this encounter
--- OUTSIDE RECORDS SUMMARY | 2024-10-11 10:33 | XMS_ITS ---
Author Name Interface, [id number] lity Address [address] [place] [address] [facility] Address [address] [place] [address] Allergies and Adverse Reactions Medication/Group Name Reaction Severity Date No known allergies Plan Date Type Value 01/01/2025 APPOINTMENT INJECTION 15 MIN 01/01/2025 APPOINTMENT LAB 15 MIN 01/01/2025 APPOINTMENT OV 15 MIN 10/02/2024 APPOINTMENT INJECTION 15 MIN 10/02/2024 APPOINTMENT LAB 15 MIN 10/02/2024 APPOINTMENT OV 15 MIN 07/11/2024 APPOINTMENT INJECTION 15 MIN 07/11/2024 APPOINTMENT LAB 15 MIN 07/11/2024 APPOINTMENT OV 15 MIN 04/11/2024 APPOINTMENT INJECTION 15 MIN 04/11/2024 APPOINTMENT LAB 15 MIN 04/11/2024 APPOINTMENT OV 15 MIN 01/11/2024 APPOINTMENT LAB 15 MIN 01/11/2024 APPOINTMENT OV 15 MIN 10/11/2023 APPOINTMENT PORT FLUSH 15 SD N 10/11/2023 APPOINTMENT LAB 15 MIN 10/11/2023 APPOINTMENT OV 15 MIN 10/11/2023 APPOINTMENT Chemo C33D1 Leup rolide D1 Q3M 07/12/2023 APPOINTMENT Chemo C32D1 Leup rolide D1 Q3M 07/11/2023 APPOINTMENT INJECTION 15 MIN 07/11/2023 APPOINTMENT LAB 15 MIN 07/11/2023 APPOINTMENT OV 15 MIN 04/12/2023 APPOINTMENT Chemo C30D1 Leup rolide D1 Q3M 04/12/2023 APPOINTMENT Chemo C31D1 Leup rolide D1 Q3M 04/12/2023 APPOINTMENT INJECTION 15 MIN 04/12/2023 APPOINTMENT LAB 15 MIN 04/12/2023 APPOINTMENT OV 15 MIN 04/11/2023 APPOINTMENT Chemo C30D1 Leup rolide D1 Q3M 04/10/2023 APPOINTMENT Chemo C30D1 Leup rolide D1 Q3M 04/06/2023 APPOINTMENT Chemo C30D1 Leup rolide D1 Q3M 04/06/2023 APPOINTMENT Chemo C30D1 Leup rolide D1 Q3M 04/05/2023 APPOINTMENT Chemo C30D1 Leup rolide D1 Q3M 04/04/2023 APPOINTMENT Chemo C30D1 Leup rolide D1 Q3M 01/10/2023 APPOINTMENT INJECTION 15 MIN 01/10/2023 APPOINTMENT LAB 15 MIN 01/10/2023 APPOINTMENT OV 15 MIN 01/10/2023 APPOINTMENT Chemo C29D1 Leup rolide D1 Q3M 01/09/2023 APPOINTMENT Chemo C29D1 Leup rolide D1 Q3M 01/05/2023 APPOINTMENT Chemo C29D1 Leup rolide D1 Q3M 01/05/2023 APPOINTMENT Chemo C29D1 Leup rolide D1 Q3M 01/04/2023 APPOINTMENT Chemo C29D1 Leup rolide D1 Q3M 01/03/2023 APPOINTMENT Chemo C29D1 Leup rolide D1 Q3M 10/10/2022 APPOINTMENT INJECTION 15 MIN 10/10/2022 APPOINTMENT LAB 15 MIN 10/10/2022 APPOINTMENT OV 15 MIN 10/10/2022 APPOINTMENT OV 15 MIN 10/10/2022 APPOINTMENT Chemo C28D1 Leup rolide D1 Q3M 10/10/2022 APPOINTMENT Lab 10/06/2022 APPOINTMENT Chemo C28D1 Leup rolide D1 Q3M 10/06/2022 APPOINTMENT Chemo C28D1 Leup rolide D1 Q3M 10/05/2022 APPOINTMENT Chemo C28D1 Leup rolide D1 Q3M 10/04/2022 APPOINTMENT Chemo C28D1 Leup rolide D1 Q3M 07/07/2022 APPOINTMENT LAB 15 MIN 07/07/2022 APPOINTMENT INJECTION 15 MIN 07/07/2022 APPOINTMENT INJECTION 15 MIN 07/07/2022 APPOINTMENT LAB 15 MIN 07/07/2022 APPOINTMENT OV 15 MIN 07/07/2022 APPOINTMENT Chemo C27D1 Leup rolide D1 Q3M 07/07/2022 APPOINTMENT Chemo C27D1 Leup rolide D1 Q3M 07/06/2022 APPOINTMENT Chemo C27D1 Leup rolide D1 Q3M 07/05/2022 APPOINTMENT Chemo C27D1 Leup rolide D1 Q3M 07/05/2022 APPOINTMENT INJECTION 15 MIN 07/05/2022 APPOINTMENT LAB 15 MIN 07/05/2022 APPOINTMENT OV 15 MIN 04/07/2022 APPOINTMENT INJECTION 15 MIN 04/07/2022 APPOINTMENT LAB 15 MIN 04/07/2022 APPOINTMENT OV 15 MIN 04/07/2022 APPOINTMENT Chemo C26D1 Leup rolide D1 Q3M 04/07/2022 APPOINTMENT Chemo C26D1 Leup rolide D1 Q3M 04/06/2022 APPOINTMENT Chemo C26D1 Leup rolide D1 Q3M 04/05/2022 APPOINTMENT Chemo C26D1 Leup rolide D1 Q3M 01/06/2022 APPOINTMENT Chemo C25D1 Leup rolide D1 Q3M 01/05/2022 APPOINTMENT Chemo C25D1 Leup rolide D1 Q3M 01/05/2022 APPOINTMENT INJECTION 15 MIN 01/05/2022 APPOINTMENT LAB 15 MIN 01/05/2022 APPOINTMENT OV 15 MIN 01/04/2022 APPOINTMENT Chemo C25D1 Leup rolide D1 Q3M 10/07/2021 APPOINTMENT Chemo C24D1 Leup rolide D1 Q3M 10/06/2021 APPOINTMENT Chemo C24D1 Leup rolide D1 Q3M 10/06/2021 APPOINTMENT INJECTION 15 MIN 10/06/2021 APPOINTMENT LAB 15 MIN 10/06/2021 APPOINTMENT OV 15 MIN 10/06/2021 APPOINTMENT OV 15 MIN 10/05/2021 APPOINTMENT Chemo C24D1 Leup rolide D1 Q3M 07/08/2021 APPOINTMENT Chemo C23D1 Leup rolide D1 Q3M 07/06/2021 APPOINTMENT Chemo C23D1 Leup rolide D1 Q3M 07/06/2021 APPOINTMENT INJECTION 15 MIN 07/06/2021 APPOINTMENT LAB 15 MIN 07/06/2021 APPOINTMENT OV 15 MIN 04/08/2021 APPOINTMENT TREATMENT 1 HR 04/08/2021 APPOINTMENT LAB 15 MIN 04/08/2021 APPOINTMENT OV 15 MIN 04/08/2021 APPOINTMENT TREATMENT 1 HR 04/08/2021 APPOINTMENT OV 15 MIN 04/08/2021 APPOINTMENT LAB 15 MIN 04/08/2021 APPOINTMENT PSA, total 04/08/2021 APPOINTMENT Chemo C22D1 Leup rolide D1 Q3M 01/07/2021 APPOINTMENT Chemo C21D1 Leup rolide D1 Q3M 01/07/2021 APPOINTMENT RTC MD chemo 01/07/2021 APPOINTMENT Lab 01/07/2021 APPOINTMENT INJECTION 15 MIN 01/07/2021 APPOINTMENT OV 15 MIN 01/07/2021 APPOINTMENT LAB 15 MIN 10/08/2020 APPOINTMENT LAB 15 MIN 10/08/2020 APPOINTMENT INJECTION 15 MIN 10/08/2020 APPOINTMENT OV 15 MIN 10/08/2020 APPOINTMENT OV 15 MIN 10/08/2020 APPOINTMENT Lab 10/08/2020 APPOINTMENT INJECTION 15 MIN 10/08/2020 APPOINTMENT OV 15 MIN 10/08/2020 APPOINTMENT LAB 15 MIN 10/08/2020 APPOINTMENT Chemo C20D1 Leup rolide D1 Q3M 10/08/2020 LABORDER CBC w/ auto diff 10/08/2020 LABORDER PSA, total 10/08/2020 LABORDER CMP - Core Lab 01/07/2021 LABORDER CMP - Core Lab 01/07/2021 LABORDER PSA, total 01/07/2021 LABORDER CBC w/ auto diff 04/08/2021 LABORDER CBC w/ auto diff 04/08/2021 LABORDER PSA, total 04/08/2021 LABORDER CMP - Core Lab 07/06/2021 LABORDER CMP - Core Lab 07/06/2021 LABORDER PSA, total 07/06/2021 LABORDER CBC w/ auto diff 10/06/2021 LABORDER CMP - Core Lab 10/06/2021 LABORDER PSA, total 10/06/2021 LABORDER CBC w/ auto diff 01/05/2022 LABORDER CMP - Core Lab 01/05/2022 LABORDER CBC w/ auto diff 01/05/2022 LABORDER PSA, total 04/07/2022 LABORDER PSA, total 04/07/2022 LABORDER CBC w/ auto diff 04/07/2022 LABORDER CMP - Core Lab 07/05/2022 LABORDER CBC w/ auto diff 07/05/2022 LABORDER CMP - Core Lab 07/05/2022 LABORDER PSA, total 10/10/2022 LABORDER CBC w/ auto diff 10/10/2022 LABORDER PSA, total 10/10/2022 LABORDER CMP - Core Lab 10/10/2022 LABORDER TIBC and percent sat w/ iron panel 10/10/2022 LABORDER Ferritin 01/10/2023 LABORDER CMP - Core Lab 01/10/2023 LABORDER PSA, total 01/10/2023 LABORDER CBC w/ auto diff 04/12/2023 LABORDER CBC w/ auto diff 04/12/2023 LABORDER PSA, total 04/12/2023 LABORDER CMP - Core Lab 07/11/2023 LABORDER CBC w/ auto diff 07/11/2023 LABORDER CMP - Core Lab 07/11/2023 LABORDER PSA, total 10/11/2023 LABORDER CBC w/ auto diff 10/11/2023 LABORDER CMP - Core Lab 10/11/2023 LABORDER PSA, total 01/11/2024 LABORDER CMP - Core Lab 01/11/2024 LABORDER CBC w/ auto diff 01/11/2024 LABORDER PSA, total 04/12/2024 LABORDER CMP - Core Lab 04/12/2024 LABORDER CBC w/ auto diff 04/12/2024 LABORDER PSA, total 07/11/2024 LABORDER CBC w/ auto diff 07/11/2024 LABORDER CMP - Core Lab 07/11/2024 LABORDER PSA, total 10/02/2024 LABORDER CBC w/ auto diff 10/02/2024 LABORDER PSA, total 10/02/2024 LABORDER CMP - Core Lab 01/01/2025 LABORDER CBC w/ auto diff 01/01/2025 LABORDER CMP - Core Lab 01/01/2025 LABORDER PSA, total Reason for Visit OV 15 MIN Encounters Date Name 10/08/2020 Anemia 10/08/2020 Essential hypertensi on (disorder) 10/08/2020 Prostate cancer in s itu 10/08/2020 Secondary malignant neoplasm of bone (disorder) Diagnostic Results Date Type Test Units Lower Limit Upper Limit Result Flag Comments Status Ordered By Specimen Source Lab Address 10/08 CBC w/ auto diff WBC 10*3/u L 4.2 9.1 4.6 FINAL [facility] ([facility]), [address], [address] [facility] [address] 10/08 CBC w/ auto diff Alan # (ANC) 10*3/u L 1.78 5.38 3.30 FINAL [facility] ([facility]), [address], [address] [facility] [address] 10/08 CBC w/ auto diff LY # 10*3/u L 1.32 3.57 0.66 Low FINAL [facility] ([facility]), [address], [address] [facility] [address] 10/08 CBC w/ auto diff MO # 10*3/u L 0.3 0.82 0.47 FINAL [facility] ([facility]), [address], [address] [place] [address] 10/08 CBC w/ auto diff EO # 10*3/u lL 0.04 0.54 0.18 FINAL [facility] ([facility]), [address], [address] [place] [address] 10/08 CBC w/ auto diff BA # 10*3/u L 0.01 0.08 0.03 FINAL [facility] ([facility]), [address], [address] [place] [address] 10/08 CBC w/ auto diff Alan % % 34.0 67.9 71.2 High FINAL [facility] (T), [address], [address] [place] [address] 10/08 CBC w/ auto diff LY % % 21.8 53.1 14.2 Low FINAL [facility] ([facility]), [address], [address] [place] [address] 10/08 CBC w/ auto diff MO % % 5.3 12.2 10.1 FINAL [facility] ([facility]), [address], [address] [place] [address] 10/08 CBC w/ auto diff EO % % 0.8 7.0 3.9 FINAL [facility] ([facility]), [address], [address] [place] [address] 10/08 CBC w/ auto diff BA % % 0.2 1.2 0.6 FINAL [facility] ([facility]), [address], [address] [place] [address] 10/08 CBC w/ auto diff RBC 10*6/u L 4.63 6.08 4.24 Low FINAL [facility] ([facility]), [address], [address] [place] [address] 10/08 CBC w/ auto diff HGB g/dL 13.7 17.5 12.3 Low FINAL [facility] (T), [address], [address] [place], [place] [id number] 10/08 CBC w/ auto diff HCT % 40.1 51.0 36.9 Low FINAL [facility] ([facility]), [address], [address] [place], [place] [address] 10/08 CBC w/ auto diff MCV fL 79.0 92.2 87.0 FINAL [facility] ([facility]), [address], [address] [place] [address] 10/08 CBC w/ auto diff MCH pg 25.7 32.2 29.0 FINAL [facility] ([facility]), [address], [address] [place] [address] 10/08 CBC w/ auto diff MCHC g/dL 32.3 36.5 33.3 FINAL [facility] ([facility]), [address], [address] [place] [address] 10/08 CBC w/ auto diff RDW-C V, % % 11.6 14.4 14.4 FINAL [facility] ([facility]), [address], [address] [place], [place] [id number] 10/08 CBC w/ auto diff PLT 10*3/u L 163.0 337.0 175.0 FINAL [facility] ([facility]), [address], [address] [place], [place] [address] 10/08 CMP - Core Lab Sodiu m mmol/L 136.0 145.0 140 FINAL [facility] ([facility]), [facility]0 [facility] [address] 10/08 CMP - Core Lab Potas sium mmol/L 3.5 5.1 4.2 FINAL [facility] ([facility]), [facility] [address] 10/08 CMP - Core Lab Chlor naif mmol/L 98.0 107.0 106 FINAL [facility] ([facility]), [address] [place] [address] 10/08 CMP - Core Lab CO2 mmol/L 20.0 31.0 25.7 FINAL [facility] ([facility]), [address] [place] [address] [place] [address] 10/08 CMP - Core Lab Anion gap, mmol/ L mmol/L 4.0 15.0 8.3 FINAL [facility] ([facility]), [address] [place] [address] [place] [address] 10/08 CMP - Core Lab BUN mg/dL 9.0 23.0 27 High FINAL [facility] ([facility]), [address] [place] [address] 10/08 CMP - Core Lab BUN/C reati nine ratio 0.0 25.0 28.1 High FINAL [facility] ([facility]), [address] [place] [address] 10/08 CMP - Core Lab Creat inine mg/dL 0.6 1.1 0.96 FINAL [facility] ([facility]), [address] [place] [address] 10/08 CMP - Core Lab GFR non-A frica n Ameri can, estim ated mL/min /1.73m >60.0 FINAL [facility] ([facility]), [address] [place] [address] 10/08 CMP - Core Lab GFR Afric an Ameri can, estim ated mL/min /1.73m >60.0 FINAL [facility] ([facility]), [address] [place] [address] [place] [address] 10/08 CMP - Core Lab Gluco se mg/dL 74.0 106.0 105 FINAL [facility] ([facility]), [address] [place] [address] [place] [address] 10/08 CMP - Core Lab Calci um mg/dL 8.7 10.6 10.0 FINAL [facility] ([facility]), [address] [place] [address] [place] [address] 10/08 CMP - Core Lab Album in g/dL 3.4 5.0 4.0 FINAL [facility] ([facility]), [address] [place] [address] 10/08 CMP - Core Lab Total prote in g/dL 5.7 8.2 6.7 FINAL [facility] ([facility]), [address] [place] [address] 10/08 CMP - Core Lab A/G ratio 1.0 2.0 1.5 FINAL [facility] ([facility]), [address] [place] [address] 10/08 CMP - Core Lab Alkal ine phosp hatas e U/L 46.0 116.0 47 FINAL [facility] ([facility]), [address] [place] [address] 10/08 CMP - Core Lab ALT/S GPT U/L 10.0 49.0 19 FINAL [facility] ([facility]), [address] [place] [address] 10/08 CMP - Core Lab AST/S GOT U/L 0.0 34.0 23 FINAL [facility] ([facility]), [address] [place] [address] 10/08 CMP - Core Lab Bilir ubin, total mg/dL 0.3 1.2 0.4 FINAL [facility] ([facility]), [address] [place] [address] [place] [address] 10/08 PSA, total ng/mL 0.04 FINAL [facility] ([facility]), [address] [place] [address] [place] [address] 01/07 CBC w/ auto diff WBC 10*3/u L 4.2 9.1 5.0 FINAL Supriya barth [facility] [address], [address] [place] [address] 01/07 CBC w/ auto diff Alan # (ANC) 10*3/u L 1.78 5.38 3.57 FINAL Supriya Wild e [facility] ([facility]), [address], [address] [facility] [address] 01/07 CBC w/ auto diff LY # 10*3/u L 1.32 3.57 0.83 Low FINAL [facility]ya Delisaespi e [facility] ([facility]), [address], [address] [place] [address] 01/07 CBC w/ auto diff MO # 10*3/u L 0.3 0.82 0.42 FINAL Supriya Gillespi e [facility] ([facility]), [address], [address] [place] [address] 01/07 CBC w/ auto diff EO # 10*3/u lL 0.04 0.54 0.17 FINAL Supriya Herculesespi e [facility] ([facility]), [address], [address] [place] [address] 01/07 CBC w/ auto diff BA # 10*3/u L 0.01 0.08 0.02 FINAL [facility]ya Verdini e [facility] ([facility]), [address], [address] [place], [place] [id number] 01/07 CBC w/ auto diff Alan % % 34.0 67.9 71.2 High FINAL Supirya Herculesespi e [facility] ([facility]), [address], [address] [place], [place] [id number] 01/07 CBC w/ auto diff LY % % 21.8 53.1 16.6 Low FINAL Supriya Gillespi e [facility] ([facility]), [address], [address] [place] [address] 01/07 CBC w/ auto diff MO % % 5.3 12.2 8.4 FINAL [facility]ya Gillespi e [facility] ([facility]), [address], [address] [place], [place] [id number] 01/07 CBC w/ auto diff EO % % 0.8 7.0 3.4 FINAL Supriya Gillespi e [facility] ([facility]), [address], [address] [place], [place] [id number] 01/07 CBC w/ auto diff BA % % 0.2 1.2 0.4 FINAL Supriya barth [facility] ([facility]), [address], [address] [place], [place] [id number] 01/07 CBC w/ auto diff RBC 10*6/u L 4.63 6.08 4.12 Low FINAL Supriya Wild e [facility] ([facility]), [address], [address] [place] [address] 01/07 CBC w/ auto diff HGB g/dL 13.7 17.5 12.0 Low FINAL [facility] ([facility]), [address], [address] [place] [address] 01/07 CBC w/ auto diff HCT % 40.1 51.0 36.4 Low FINAL Supriya Wild e [facility] ([facility]), [address], [address] [place] [address] 01/07 CBC w/ auto diff MCV fL 79.0 92.2 88.3 FINAL Supriya barth [facility] ([facility]), [address], [address] [place] [address] 01/07 CBC w/ auto diff MCH pg 25.7 32.2 29.1 FINAL Supriya Wild e [facility] ([facility]), [address], [address] [place] [address] 01/07 CBC w/ auto diff MCHC g/dL 32.3 36.5 33.0 FINAL Supriya barth [facility] ([facility]), [address], [address] [place] [address] 01/07 CBC w/ auto diff RDW-C V, % % 11.6 14.4 14.3 FINAL Supriya Wild e [facility] (T), [address], [address] [place] [address] 01/07 CBC w/ auto diff PLT 10*3/u L 163.0 337.0 162.0 Low FINAL Supriya Wild e [facility] ([facility]), [address], [address] [facility] [address] 01/07 CMP - Core Lab Sodiu m mmol/L 136.0 145.0 138 FINAL Supriya barth [facility] ([facility]), [address] [place] [address] [place] [address] 01/07 CMP - Core Lab Potas sium mmol/L 3.5 5.1 5.1 FINAL Supriya barth [facility] ([facility]), [address] [place] [address] [place] [address] 01/07 CMP - Core Lab Chlor naif mmol/L 98.0 107.0 103 FINAL Supriya barth [facility] ([facility]), [address] [place] [address] [place] [address] 01/07 CMP - Core Lab CO2 mmol/L 20.0 31.0 21.9 FINAL Supriya barth [facility] ([facility]), [address] [place] [address] [place] [address] 01/07 CMP - Core Lab Anion gap, mmol/ L mmol/L 4.0 15.0 13.1 FINAL Supriya barth [facility] ([facility]), [address] [place] [address] [place] [address] 01/07 CMP - Core Lab BUN mg/dL 9.0 23.0 14 FINAL Supriya barth [facility] ([facility]), [address] [place] [address] [place] [address] 01/07 CMP - Core Lab BUN/C reati nine ratio 0.0 25.0 14.1 FINAL Supriya barth [facility] ([facility]), [address] [place] [address] [place] [address] 01/07 CMP - Core Lab Creat inine mg/dL 0.6 1.1 0.99 FINAL Supriya barth [facility] ([facility]), [address] [place] [address] [place] [address] 01/07 CMP - Core Lab GFR non-A frica n Ameri can, estim ated mL/min /1.73m >60.0 FINAL Supriya barth [facility] ([facility]), [address] [place] [address] [place] [address] 01/07 CMP - Core Lab GFR Afric an Ameri can, estim ated mL/min /1.73m >60.0 FINAL Supriya barth [facility] ([facility]), [address] [place] [address] [place] [address] 01/07 CMP - Core Lab Gluco se mg/dL 74.0 106.0 103 FINAL Supriya barth [facility] ([facility]), [address] [place] [address] [place] [address] 01/07 CMP - Core Lab Calci um mg/dL 8.7 10.6 9.7 FINAL Supriya barth [facility] ([facility]), [address] [place] [address] [place] [address] 01/07 CMP - Core Lab Album in g/dL 3.4 5.0 4.1 FINAL Supriya barth [facility] ([facility]), [address] [place] [address] [place] [address] 01/07 CMP - Core Lab Total prote in g/dL 5.7 8.2 7.1 FINAL Supriya barth [facility] ([facility]), [address] [place] [address] [place] [address] 01/07 CMP - Core Lab A/G ratio 1.0 2.0 1.4 FINAL Supriya barth [facility] ([facility]), [address] [place] [address] [place] [address] 01/07 CMP - Core Lab Alkal ine phosp hatas e U/L 46.0 116.0 46 FINAL Supriya barth [facility] ([facility]), [address] [place] [address] [place] [address] 01/07 CMP - Core Lab ALT/S GPT U/L 10.0 49.0 35 FINAL Supriya barth [facility] ([facility]), [address] [place] [address] [place] [address] 01/07 CMP - Core Lab AST/S GOT U/L 0.0 34.0 57 High FINAL Supriya barth [facility] ([facility]), [address] [facility] [address] 01/07 CMP - Core Lab Bilir ubin, total mg/dL 0.3 1.2 0.4 [facility]AL [facility]), [address] [facility] [address] 01/07 PSA, total ng/mL 0.04 [facility]AL [facility] [place] [facility]), [address] [place] [address] 04/08 PSA, total ng/mL 0.04 FINAL [facility] ([facility]), [facility] [address] 04/08 CBC w/ auto diff WBC 10*3/u L 4.2 9.1 4.8 FINAL [facility] ([facility]), [address], [address] [place] [address] 04/08 CBC w/ auto diff Alan # (ANC) 10*3/u L 1.78 5.38 3.23 FINAL [facility] ([facility]), [address], [address] [place] [address] 04/08 CBC w/ auto diff LY # 10*3/u L 1.32 3.57 0.86 Low FINAL [facility] ([facility]), [address], [address] [place] [address] 04/08 CBC w/ auto diff MO # 10*3/u L 0.3 0.82 0.48 FINAL [facility] ([facility]), [address], [address] [place] [address] 04/08 CBC w/ auto diff EO # 10*3/u lL 0.04 0.54 0.20 FINAL [facility] ([facility]), [address], [address] [place] [address] 04/08 CBC w/ auto diff BA # 10*3/u L 0.01 0.08 0.04 FINAL [facility] ([facility]), [address], [address] [place] [address] 04/08 CBC w/ auto diff Alan % % 34.0 67.9 67.1 FINAL [facility] ([facility]), [address], [address] [place] [address] 04/08 CBC w/ auto diff LY % % 21.8 53.1 17.9 Low FINAL [facility] ([facility]), [address], [address] [place] [address] 04/08 CBC w/ auto diff MO % % 5.3 12.2 10.0 FINAL [facility] (T), [address], [address] [place] [address] 04/08 CBC w/ auto diff EO % % 0.8 7.0 4.2 FINAL [facility] (T), [address], [address] [place] [address] 04/08 CBC w/ auto diff BA % % 0.2 1.2 0.8 FINAL [facility] (T), [address], [address] [place] [address] 04/08 CBC w/ auto diff RBC 10*6/u L 4.63 6.08 4.22 Low FINAL [facility] ([facility]), [address], [address] [place] [address] 04/08 CBC w/ auto diff HGB g/dL 13.7 17.5 12.3 Low FINAL [facility] ([facility]), [address], [address] [place] [address] 04/08 CBC w/ auto diff HCT % 40.1 51.0 36.7 Low FINAL [facility] (T), [address], [address] [place] [address] 04/08 CBC w/ auto diff MCV fL 79.0 92.2 87.0 FINAL [facility] (T), [address], [address] [place] [address] 04/08 CBC w/ auto diff MCH pg 25.7 32.2 29.1 FINAL [facility] ([facility]), [address], [address] [facility] [address] 04/08 CBC w/ auto diff MCHC g/dL 32.3 36.5 33.5 FINAL [facility] (T), [address], [address] [facility] [address] 04/08 CBC w/ auto diff RDW-C V, % % 11.6 14.4 13.8 FINAL [facility] ([facility]), [address], [address] [facility] [address] 04/08 CBC w/ auto diff PLT 10*3/u L 163.0 337.0 174.0 FINAL [facility] (T), [address], [address] [facility] [address] 04/08 CMP - Core Lab Sodiu m mmol/L 136.0 145.0 141 FINAL [facility] ([facility]), [address] [place] [address] 04/08 CMP - Core Lab Potas sium mmol/L 3.5 5.1 4.0 FINAL [facility] ([facility]), [address] [place] [address] 04/08 CMP - Core Lab Chlor naif mmol/L 98.0 107.0 108 High FINAL [facility] ([facility]), [address] [place] [address] 04/08 CMP - Core Lab CO2 mmol/L 20.0 31.0 23.4 FINAL [facility] ([facility]), [address] [place] [address] 04/08 CMP - Core Lab Anion gap, mmol/ L mmol/L 4.0 15.0 9.6 FINAL [facility] ([facility]), [address] [place] [address] [place] [address] 04/08 CMP - Core Lab BUN mg/dL 9.0 23.0 19 FINAL [facility] ([facility]), [address] [place] [address] 04/08 CMP - Core Lab BUN/C reati nine ratio 0.0 25.0 22.1 FINAL [facility] ([facility]), [address] [place] [address] 04/08 CMP - Core Lab Creat inine mg/dL 0.6 1.1 0.86 FINAL [facility] ([facility]), [address] [place] [address] 04/08 CMP - Core Lab GFR non-A frica n Ameri can, estim ated mL/min /1.73m >60.0 FINAL [facility] ([facility]), [address] [place], [place] [id number] 04/08 CMP - Core Lab GFR Afric an Ameri can, estim ated mL/min /1.73m >60.0 FINAL [facility] ([facility]), [address] [place] [address] 04/08 CMP - Core Lab Gluco se mg/dL 74.0 106.0 122 High FINAL [facility] ([facility]), [address] [place] [address] 04/08 CMP - Core Lab Calci um mg/dL 8.7 10.6 9.6 FINAL [facility] ([facility]), [address] [place] [address] 29[address] 04/08 CMP - Core Lab Album in g/dL 3.4 5.0 3.9 FINAL [facility] ([facility]), [address] [place] [address] 04/08 CMP - Core Lab Total prote in g/dL 5.7 8.2 6.5 FINAL [facility] ([facility]), [address] [place] [address] 04/08 CMP - Core Lab A/G ratio 1.0 2.0 1.5 FINAL [facility] ([facility]), [address] [place] [address] 04/08 CMP - Core Lab Alkal ine phosp hatas e U/L 46.0 116.0 45 Low FINAL [facility] ([facility]), [address] [place] [address] [place] [address] 04/08 CMP - Core Lab ALT/S GPT U/L 10.0 49.0 24 FINAL [facility] ([facility]), [address] [place] [address] [place] [address] 04/08 CMP - Core Lab AST/S GOT U/L 0.0 34.0 26 FINAL [facility] ([facility]), [address] [place] [address] [place] [address] 04/08 CMP - Core Lab Bilir ubin, total mg/dL 0.3 1.2 0.4 FINAL [facility] ([facility]), [address] [place] [address] [place] [address] 07/06 CMP - Core Lab Sodiu m mmol/L 136.0 145.0 141 [facility]AL [facility]), [address] [place] [address] [place] [address] 07/06 CMP - Core Lab Potas sium mmol/L 3.5 5.1 4.1 [facility]AL [facility]), [address] [place] [address] [place] [address] 07/06 CMP - Core Lab Chlor naif mmol/L 98.0 107.0 105 [facility] ([facility]), [address] [place] [address] [place] [address] 07/06 CMP - Core Lab CO2 mmol/L 20.0 31.0 27.1 [facility]AL [facility] ([facility]), [address] [place] [address] [place] [address] 07/06 CMP - Core Lab Anion gap, mmol/ L mmol/L 4.0 15.0 8.[address] [facility] ([facility]), [address] [place] [address] [place] [address] 07/06 CMP - Core Lab BUN mg/dL 9.0 23.0 13 FINAL [facility] ([facility]), [address] [place] [address] [place] [address] 07/06 CMP - Core Lab BUN/C reati nine ratio 0.0 25.0 13.8 FINAL [facility]), [address] [place] [address] 07/06 CMP - Core Lab Creat inine mg/dL 0.6 1.1 0.94 FINAL [facility] [place] [facility] ([facility]), [address] [place] [address] 07/06 CMP - Core Lab GFR non-A frica n Ameri can, estim ated mL/min /1.73m >60.0 FINAL Milvia [facility] [place] ([facility]), [address] [place], [place] [id number] 07/06 CMP - Core Lab GFR Afric an Ameri can, estim ated mL/min /1.73m >60.0 FINAL [facility] [place] [facility] ([facility]), [address] [place] [address] 07/06 CMP - Core Lab Gluco se mg/dL 74.0 106.0 91 FINAL [facility] ([facility]), [address] [place] [address] 0[address] 07/06 CMP - Core Lab Calci um mg/dL 8.7 10.6 10.3 FINAL [facility] [place] [facility] ([facility]), [address] [place], [place] [id number] 07/06 CMP - Core Lab Album in g/dL 3.4 5.0 4.0 FINAL Milvia Cezaring [facility] [place] ([facility]), [address] [place] [address] 07/06 CMP - Core Lab Total prote in g/dL 5.7 8.2 6.8 FINAL Milvia Liming [facility] [place] ([facility]), [address] [place] [address] 07/06 CMP - Core Lab A/G ratio 1.0 2.0 1.4 FINAL [facility] [place] ([facility]), [address] [place] [address] 07/06 CMP - Core Lab Alkal ine phosp hatas e U/L 46.0 116.0 48 FINAL Milvia Robbing [facility] [place] ([facility]), [address] [facility] [address] 07/06 CMP - Core Lab ALT/S GPT U/L 10.0 49.0 24 FINAL Milvia Robbing [facility] [place] ([facility]), [facility] [place] [address] 07/06 CMP - Core Lab AST/S GOT U/L 0.0 34.0 23 FINAL [facility] [place] ([facility]), [facility] [address] 07/06 CMP - Core Lab Bilir ubin, total mg/dL 0.3 1.2 0.5 FINAL [facility] [place] [facility] ([facility]), [facility] [address] 07/06 CBC w/ auto diff LY # 10*3/u L 1.32 3.57 1.07 Low FINAL Milvia Robbing [facility] ([facility]), [address], [address] [facility] [address] 07/06 CBC w/ auto diff MO # 10*3/u L 0.3 0.82 0.57 FINAL Milvia Robbing [facility] ([facility]), [address], [address] [facility] [address] 07/06 CBC w/ auto diff EO # 10*3/u lL 0.04 0.54 0.23 FINAL Milvia Robbing [facility] [address], [address] [facility] [address] 07/06 CBC w/ auto diff BA # 10*3/u L 0.01 0.08 0.04 FINAL Milvia Cezaring [facility]), [address], [address] [facility] [address] 07/06 CBC w/ auto diff Alan % % 34.0 67.9 69.4 High FINAL Milvia Liming [facility]), [address], [address] [place] [address] 07/06 CBC w/ auto diff LY % % 21.8 53.1 17.2 Low FINAL Milvia Liming [facility] ([facility]), [address], [address] [place] [address] 07/06 CBC w/ auto diff MO % % 5.3 12.2 9.1 FINAL Milvia Liming [facility] ([facility]), [address], [address] [place] [address] 07/06 CBC w/ auto diff EO % % 0.8 7.0 3.7 FINAL Milvia Liming [facility] ([facility]), [address], [address] [place] [address] 07/06 CBC w/ auto diff BA % % 0.2 1.2 0.6 FINAL Milvia Liming [facility] ([facility]), [address], [address] [place] [address] 07/06 CBC w/ auto diff RBC 10*6/u L 4.63 6.08 4.55 Low FINAL Milvia Liming [facility] ([facility]), [address], [address] [place] [address] 07/06 CBC w/ auto diff HGB g/dL 13.7 17.5 13.4 Low FINAL Milvia Liming [facility] ([facility]), [address], [address] [place] [address] 07/06 CBC w/ auto diff HCT % 40.1 51.0 39.9 Low FINAL Milvia Liming [facility] ([facility]), [address], [address] [place] [address] 07/06 CBC w/ auto diff MCV fL 79.0 92.2 87.7 FINAL Milvia Liming [facility] ([facility]), [address], [address] [place] [address] 07/06 CBC w/ auto diff MCH pg 25.7 32.2 29.5 FINAL Milvia Liming [facility] ([facility]), [address], [address] [place] [id number] 07/06 CBC w/ auto diff MCHC g/dL 32.3 36.5 33.6 FINAL Milvia Johnson [facility] [place] (T), [address], [address] [place], [place] [id number] 07/06 CBC w/ auto diff RDW-C V, % % 11.6 14.4 13.7 FINAL Milvia Johnson [facility] [place] (T), [address], [address] [place], [place] [address] 07/06 CBC w/ auto diff PLT 10*3/u L 163.0 337.0 197.0 FINAL [facility] ([facility] [address], [address] [place], [place] [address] 07/06 CBC w/ auto diff WBC 10*3/u L 4.2 9.1 6.2 FINAL Milvia Johnson [facility] (T), [address], [address] [place], [place] [id number] 07/06 CBC w/ auto diff Alan # (ANC) 10*3/u L 1.78 5.38 4.32 FINAL [facility] [address] [place], [place] [id number] 07/06 PSA, total ng/mL 0.04 FINAL [facility] [place] ([facility]), [address] [place] [address] 10/06 CMP - Core Lab Sodiu m mmol/L 136.0 145.0 142 FINAL [facility] ([facility]), [address] [place] [address] 8[address] 10/06 CMP - Core Lab Potas sium mmol/L 3.5 5.1 4.4 FINAL [facility] ([facility]), [address] [place] [address] 10/06 CMP - Core Lab Chlor naif mmol/L 98.0 107.0 107 FINAL [facility] ([facility]), [address] [place] [address]683 10/06 CMP - Core Lab CO2 mmol/L 20.0 31.0 25.4 FINAL [facility] ([facility]), [address] [place] [address] 10/06 CMP - Core Lab Anion gap, mmol/ L mmol/L 4.0 15.0 9.6 FINAL [facility] ([facility]), [address] [place] [address] [place] [address] 10/06 CMP - Core Lab BUN mg/dL 9.0 23.0 19 FINAL [facility] ([facility]), [address] [place] [address] 10/06 CMP - Core Lab BUN/C reati nine ratio 0.0 25.0 20.9 FINAL [facility] ([facility]), [address] [place] [address] 10/06 CMP - Core Lab Creat inine mg/dL 0.6 1.1 0.91 FINAL [facility] ([facility]), [address] [place] [address] 10/06 CMP - Core Lab GFR non-A frica n Ameri can, estim ated mL/min /1.73m >60.0 FINAL [facility] ([facility]), [address] [place] [address] [place] [address] 10/06 CMP - Core Lab GFR Afric an Ameri can, estim ated mL/min /1.73m >60.0 FINAL [facility] ([facility]), [address] [place] [address] [place] [address] 10/06 CMP - Core Lab Gluco se mg/dL 74.0 106.0 102 FINAL [facility] ([facility]), [address] [place] [address] [place] [address] 10/06 CMP - Core Lab Calci um mg/dL 8.7 10.6 10.8 High FINAL [facility] ([facility]), [address] [place] [address] [place] [address] 10/06 CMP - Core Lab Album in g/dL 3.4 5.0 4.4 FINAL [facility] ([facility]), [address] [place] [address]07 10/06 CMP - Core Lab Total prote in g/dL 5.7 8.2 7.3 FINAL [facility] ([facility]), [address] [place] [address] [place] [address] 10/06 CMP - Core Lab A/G ratio 1.0 2.0 1.5 FINAL [facility] ([facility]), [address] [place] [address] 267[address] 10/06 CMP - Core Lab Alkal ine phosp hatas e U/L 46.0 116.0 49 FINAL [facility] ([facility]), [address] [place] [address] 42619 10/06 CMP - Core Lab ALT/S GPT U/L 10.0 49.0 27 FINAL [facility] ([facility]), [address] [place] [address]236 10/06 CMP - Core Lab AST/S GOT U/L 0.0 34.0 23 FINAL [facility] ([facility]), [address] [place] [address] [place] [address] 10/06 CMP - Core Lab Bilir ubin, total mg/dL 0.3 1.2 0.4 FINAL [facility] ([facility]), [address] [place] [address] [place] [address] 10/06 CBC w/ auto diff WBC 10*3/u L 4.2 9.1 6.2 FINAL [facility] ([facility]), [address], [address] [facility] [address] 10/06 CBC w/ auto diff Alan # (ANC) 10*3/u L 1.78 5.38 4.31 FINAL [facility] ([facility]), [address], [address] [facility] [address] 10/06 CBC w/ auto diff LY # 10*3/u L 1.32 3.57 0.99 Low FINAL Shayne Herms [facility] ([facility]), [address], [address] [place] [address] 10/06 CBC w/ auto diff MO # 10*3/u L 0.3 0.82 0.61 FINAL [facility]), [address], [address] [place] [address] 10/06 CBC w/ auto diff EO # 10*3/u lL 0.04 0.54 0.26 FINAL Shayne [facility] ([facility]), [address], [address] [place] [address] 10/06 CBC w/ auto diff BA # 10*3/u L 0.01 0.08 0.02 FINAL Shayne [facility] (T), [address], [address] [place] [address] 10/06 CBC w/ auto diff Alan % % 34.0 67.9 69.6 High FINAL Shayne [facility] (T), [address], [address] [place] [address] 10/06 CBC w/ auto diff LY % % 21.8 53.1 16.0 Low FINAL Shayne [facility] ([facility]), [address], [address] [place] [address] 10/06 CBC w/ auto diff MO % % 5.3 12.2 9.9 FINAL Shayne [facility] ([facility]), [address], [address] [place] [address] 10/06 CBC w/ auto diff EO % % 0.8 7.0 4.2 FINAL Shayne [facility] ([facility]), [address], [address] [place] [address] 10/06 CBC w/ auto diff BA % % 0.2 1.2 0.3 FINAL Shayne [facility] ([facility]), [address], [address] [place] [address] 10/06 CBC w/ auto diff RBC 10*6/u L 4.63 6.08 4.82 FINAL Shayne [facility] ([facility]), [address], [address] [place] [address] 10/06 CBC w/ auto diff HGB g/dL 13.7 17.5 14.0 FINAL [facility] (T), [address], [address] [place], [place] [id number] 10/06 CBC w/ auto diff HCT % 40.1 51.0 42.0 FINAL [facility] ([facility]), [address], [address] [place], [place] [address] 10/06 CBC w/ auto diff MCV fL 79.0 92.2 87.1 FINAL [facility] ([facility]), [address], [address] [place] [address] 10/06 CBC w/ auto diff MCH pg 25.7 32.2 29.0 FINAL [facility] ([facility]), [address], [address] [place], [place] [id number] 10/06 CBC w/ auto diff MCHC g/dL 32.3 36.5 33.3 FINAL [facility] (T), [address], [address] [place] [address] 10/06 CBC w/ auto diff RDW-C V, % % 11.6 14.4 14.0 FINAL [facility] (T), [address], [address] [place] [address] 10/06 CBC w/ auto diff PLT 10*3/u L 163.0 337.0 212.0 FINAL [facility] ([facility]), [address], [address] [place], [place] [id number] 10/06 PSA, total ng/mL 0.04 FINAL [facility] [place] [facility] ([facility]), [address] [facility] [address] 01/05 CMP - Core Lab Sodiu m mmol/L 136.0 145.0 140 FINAL Milvia Johnson [facility] [place] ([facility]), [address] [facility] [address] 01/05 CMP - Core Lab Potas sium mmol/L 3.5 5.1 4.4 FINAL [facility] [place] ([facility]), [address] [place] [address] 01/05 CMP - Core Lab Chlor naif mmol/L 98.0 107.0 106 FINAL [facility] [place] ([facility]), [address] [place] [address] 01/05 CMP - Core Lab CO2 mmol/L 20.0 31.0 26.6 FINAL [facility] ([facility]), [address] [place] [address] 01/05 CMP - Core Lab Anion gap, mmol/ L mmol/L 4.0 15.0 7.4 FINAL [facility] ([facility]), [address] [place] [address] 01/05 CMP - Core Lab BUN mg/dL 9.0 23.0 22 FINAL [facility] ([facility]), [address] [place] [address] 01/05 CMP - Core Lab BUN/C reati nine ratio 0.0 25.0 22.4 FINAL [facility] ([facility]), [address] [place] [address] 47985 01/05 CMP - Core Lab Creat inine mg/dL 0.6 1.1 0.98 FINAL [facility] ([facility]), [address] [place] [address] 01/05 CMP - Core Lab GFR non-A frica n Ameri can, estim ated mL/min /1.73m >60.0 FINAL Milvia [facility] [place] ([facility]), [address] [place] [address] 01/05 CMP - Core Lab GFR Afric an Ameri can, estim ated mL/min /1.73m >60.0 FINAL [facility] [place] ([facility]), [address] [place] [address] 01/05 CMP - Core Lab Gluco se mg/dL 74.0 106.0 109 High FINAL Milvia Cezaring [facility] [place] ([facility]), [address] [place] [address] [place] [address] 01/05 CMP - Core Lab Calci um mg/dL 8.7 10.6 9.7 FINAL [facility] [place] ([facility]), [address] [place] [address] [place] [address] 01/05 CMP - Core Lab Album in g/dL 3.4 5.0 3.8 FINAL [facility] [place] ([facility]), [address] [place] [address] [place] [address] 01/05 CMP - Core Lab Total prote in g/dL 5.7 8.2 6.5 FINAL [facility] [place] ([facility]), [address] [place] [address] [place] [address] 01/05 CMP - Core Lab A/G ratio 1.0 2.0 1.4 FINAL [facility] ([facility]), [address] [place] [address] [place] [address] 01/05 CMP - Core Lab Alkal ine phosp hatas e U/L 46.0 116.0 46 FINAL [facility] ([facility]), [address] [place] [address] [place] [address] 01/05 CMP - Core Lab ALT/S GPT U/L 10.0 49.0 24 FINAL [facility] ([facility]), [address] [place] [address] [place] [address] 01/05 CMP - Core Lab AST/S GOT U/L 0.0 34.0 23 FINAL [facility] [place] ([facility]), [address] [place] [address] [place] [address] 01/05 CMP - Core Lab Bilir ubin, total mg/dL 0.3 1.2 0.4 FINAL [facility] [place] ([facility]), [address] [place] [address] [place] [address] 01/05 CBC w/ auto diff WBC 10*3/u L 4.2 9.1 5.2 FINAL [facility] [address], [address] [facility] [address] 01/05 CBC w/ auto diff Alan # (ANC) 10*3/u L 1.78 5.38 3.53 FINAL Milvia Johnson [facility] [address], [address] [place] [address] 01/05 CBC w/ auto diff LY # 10*3/u L 1.32 3.57 0.94 Low FINAL Milvia Johnson [facility] ([facility]), [address], [address] [place] [address] 01/05 CBC w/ auto diff MO # 10*3/u L 0.3 0.82 0.46 FINAL Milvia Johnson [facility] [place] ([facility]), [address], [address] [place] [address] 01/05 CBC w/ auto diff EO # 10*3/u lL 0.04 0.54 0.20 FINAL Milvia Johnson [facility] ([facility]), [address], [address] [place] [address] 01/05 CBC w/ auto diff BA # 10*3/u L 0.01 0.08 0.02 FINAL Milvia Johnson [facility] ([facility]), [address], [address] [place] [address] 01/05 CBC w/ auto diff Alan % % 34.0 67.9 68.5 High FINAL Milvia Johnson [facility] ([facility]), [address], [address] [place] [address] 01/05 CBC w/ auto diff LY % % 21.8 53.1 18.3 Low FINAL Milvia Johnson [facility] ([facility]), [address], [address] [place] [address] 01/05 CBC w/ auto diff MO % % 5.3 12.2 8.9 FINAL Milvia Robbing [facility] ([facility]), [address], [address] [place] [address] 01/05 CBC w/ auto diff EO % % 0.8 7.0 3.9 FINAL [facility] [address], [address] [place] [address] 01/05 CBC w/ auto diff BA % % 0.2 1.2 0.4 FINAL [facility] ([facility] [address], [address] [place] [address] 01/05 CBC w/ auto diff RBC 10*6/u L 4.63 6.08 4.42 Low FINAL [facility] ([facility] [address], [address] [place] [address] 01/05 CBC w/ auto diff HGB g/dL 13.7 17.5 12.9 Low FINAL [facility] ([facility] [address], [address] [place] [address] 01/05 CBC w/ auto diff HCT % 40.1 51.0 39.9 Low FINAL [facility] [facility] ([facility]), [address], [address] [place] [address] 01/05 CBC w/ auto diff MCV fL 79.0 92.2 90.3 [facility] [address], [address] [place] [address] 01/05 CBC w/ auto diff MCH pg 25.7 32.2 29.2 [facility]AL [facility] [address], [address] [place] [address] 01/05 CBC w/ auto diff MCHC g/dL 32.3 36.5 32.3 [facility] [address], [address] [place] [address] 01/05 CBC w/ auto diff RDW-C V, % % 11.6 14.4 13.6 [facility]AL [facility] [address], [address] [place] [address] 01/05 CBC w/ auto diff PLT 10*3/u L 163.0 337.0 176.0 [facility] [address], [address] [facility] [address] 01/05 PSA, total ng/mL 0.04 FINAL [facility] ([facility]), [address] [place] [address] 04/07 CMP - Core Lab Sodiu m mmol/L 136.0 145.0 139 FINAL [facility] ([facility]), [address] [place] [address] 04/07 CMP - Core Lab Potas sium mmol/L 3.5 5.1 4.2 FINAL [facility] ([facility]), [address] [place] [address] 15047 04/07 CMP - Core Lab Chlor naif mmol/L 98.0 107.0 104 FINAL [facility] ([facility]), [address] [place] [address] [place] [address] 04/07 CMP - Core Lab CO2 mmol/L 20.0 31.0 28.3 FINAL [facility] ([facility]), [address] [place] [address] 04/07 CMP - Core Lab Anion gap, mmol/ L mmol/L 4.0 15.0 6.7 FINAL [facility] ([facility]), [address] [place] [address] [place] [address] 04/07 CMP - Core Lab BUN mg/dL 9.0 23.0 20 FINAL [facility] ([facility]), [address] [place] [address] [place] [address] 04/07 CMP - Core Lab BUN/C reati nine ratio 0.0 25.0 21.3 FINAL [facility] ([facility]), [address] [place] [address] [place] [address] 04/07 CMP - Core Lab Creat inine mg/dL 0.6 1.1 0.94 FINAL [facility] ([facility]), [address] [place] [address] 04/07 CMP - Core Lab GFR non-A frica n Ameri can, estim ated mL/min /1.73m >60.0 FINAL [facility] ([facility]), [address] [place] [address]658 04/07 CMP - Core Lab GFR Afric an Ameri can, estim ated mL/min /1.73m >60.0 FINAL [facility] ([facility]), [address] [place] [address] 31263 04/07 CMP - Core Lab Gluco se mg/dL 74.0 106.0 127 High FINAL [facility] ([facility]), [address] [place] [address] 237[address] 04/07 CMP - Core Lab Calci um mg/dL 8.7 10.6 10.6 FINAL [facility] ([facility]), [address] [place] [address] 27016 04/07 CMP - Core Lab Album in g/dL 3.4 5.0 4.2 FINAL [facility] ([facility]), [address] [place] [address] 04/07 CMP - Core Lab Total prote in g/dL 5.7 8.2 7.3 FINAL [facility] ([facility]), [address] [place] [address]94 04/07 CMP - Core Lab A/G ratio 1.0 2.0 1.4 FINAL [facility] ([facility]), [address] [place] [address] 04/07 CMP - Core Lab Alkal ine phosp hatas e U/L 46.0 116.0 47 FINAL [facility] ([facility]), [address] [place] [address] 39698 04/07 CMP - Core Lab ALT/S GPT U/L 10.0 49.0 25 FINAL [facility] ([facility]), [address] [place] [address] 53591 04/07 CMP - Core Lab AST/S GOT U/L 0.0 34.0 25 FINAL [facility] ([facility]), [address] [facility] [address] 04/07 CMP - Core Lab Bilir ubin, total mg/dL 0.3 1.2 0.5 FINAL [facility] [place] ([facility]), [address] [facility] [address] 04/07 PSA, total ng/mL 0.04 FINAL [facility] [place] ([facility]), [facility] [address] 04/07 CBC w/ auto diff WBC 10*3/u L 4.2 9.1 5.5 FINAL [facility] (T), [address], [address] [place], [place] [address] 04/07 CBC w/ auto diff Alan # (ANC) 10*3/u L 1.78 5.38 3.98 FINAL [facility] (T), [address], [address] [place], [place] [address] 04/07 CBC w/ auto diff LY # 10*3/u L 1.32 3.57 0.91 Low FINAL [facility] (EGT), [address], [address] [place], [place] [address] 04/07 CBC w/ auto diff MO # 10*3/u L 0.3 0.82 0.40 [facility]AL [facility] [address], [address] [place] [id number] 04/07 CBC w/ auto diff EO # 10*3/u lL 0.04 0.54 0.19 [facility]AL [facility]), [address], [address] [place] [id number] 04/07 CBC w/ auto diff BA # 10*3/u L 0.01 0.08 0.02 FINAL [facility] ([facility]), [address], [address] [facility] [address] 04/07 CBC w/ auto diff Alan % % 34.0 67.9 72.3 High FINAL [facility] (T), [address], [address] [place] [address] 04/07 CBC w/ auto diff LY % % 21.8 53.1 16.5 Low FINAL [facility] (EGT), [address], [address] [place] [address] 04/07 CBC w/ auto diff MO % % 5.3 12.2 7.3 FINAL [facility] (T), [address], [address] [place] [address] 04/07 CBC w/ auto diff EO % % 0.8 7.0 3.5 FINAL [facility] (T), [address], [address] [place] [address] 04/07 CBC w/ auto diff BA % % 0.2 1.2 0.4 FINAL [facility] (T), [address], [address] [place] [address] 04/07 CBC w/ auto diff RBC 10*6/u L 4.63 6.08 4.70 FINAL [facility] (T), [address], [address] [place] [address] 04/07 CBC w/ auto diff HGB g/dL 13.7 17.5 13.7 FINAL [facility] (T), [address], [address] [place] [address] 04/07 CBC w/ auto diff HCT % 40.1 51.0 41.6 FINAL [facility] (T), [address], [address] [place] [address] 04/07 CBC w/ auto diff MCV fL 79.0 92.2 88.5 FINAL [facility] (T), [address], [address] [place] [address] 04/07 CBC w/ auto diff MCH pg 25.7 32.2 29.1 FINAL [facility] (T), [address], [address] [facility] [address] 04/07 CBC w/ auto diff MCHC g/dL 32.3 36.5 32.9 FINAL [facility] ([facility]), [address] [facility], [address] [place] [id number] 04/07 CBC w/ auto diff RDW-C V, % % 11.6 14.4 13.7 FINAL [facility] ([facility]), [address] [facility] [facility] [facility] [address] 04/07 CBC w/ auto diff PLT 10*3/u L 163.0 337.0 188.0 FINAL [facility] ([facility]), [address] [facility], [address] [place], [place] [id number] 07/05 CMP - Core Lab Sodiu m mmol/L 136.0 145.0 140 FINAL [facility] [place] ([facility]), [address] [place] [address] 07/05 CMP - Core Lab Potas sium mmol/L 3.5 5.1 4.2 FINAL [facility] ([facility]), [address] [place] [address] 07/05 CMP - Core Lab Chlor naif mmol/L 98.0 107.0 104 FINAL [facility] [place] ([facility]), [address] [place] [address] 07/05 CMP - Core Lab CO2 mmol/L 20.0 31.0 26.9 FINAL [facility] ([facility]), [address] [place], [place] [id number] 07/05 CMP - Core Lab Anion gap, mmol/ L mmol/L 4.0 15.0 9.1 FINAL [facility] ([facility]), [address] [place], [place] [id number] 07/05 CMP - Core Lab BUN mg/dL 9.0 23.0 16 FINAL [facility] [place] ([facility]), [address] [place], [place] [id number] 07/05 CMP - Core Lab BUN/C reati nine ratio 0.0 25.0 16.0 FINAL [facility] ([facility]), [address] [place] [address] 07/05 CMP - Core Lab Creat inine mg/dL 0.73 1.18 1.00 FINAL [facility] ([facility]), [address] [place] [address] 07/05 CMP - Core Lab GFR non-A frica n Ameri can, estim ated mL/min /1.73m >60.0 FINAL [facility] ([facility]), [address] [place] [address] 07/05 CMP - Core Lab GFR Afric an Ameri can, estim ated mL/min /1.73m >60.0 FINAL [facility] ([facility]), [address] [place] [address] 07/05 CMP - Core Lab Gluco se mg/dL 74.0 106.0 118 High FINAL [facility] ([facility]), [address] [place] [address]451 07/05 CMP - Core Lab Calci um mg/dL 8.7 10.6 10.1 FINAL [facility] ([facility]), [address] [place] [address] 07/05 CMP - Core Lab Album in g/dL 3.4 5.0 4.2 FINAL [facility] ([facility]), [address] [place] [address] 07/05 CMP - Core Lab Total prote in g/dL 5.7 8.2 7.0 FINAL [facility] ([facility]), [address] [place] [address] 07/05 CMP - Core Lab A/G ratio 1.0 2.0 1.5 FINAL [facility] ([facility]), [address] [place] [address] 07/05 CMP - Core Lab Alkal ine phosp hatas e U/L 46.0 116.0 44 Low FINAL [facility] ([facility]), [address] [facility] [address] 07/05 CMP - Core Lab ALT/S GPT U/L 10.0 49.0 32 FINAL [facility] ([facility]), [facility] [address] 07/05 CMP - Core Lab AST/S GOT U/L 0.0 34.0 30 FINAL [facility] ([facility]), [address] [place] [address] 07/05 CMP - Core Lab Bilir ubin, total mg/dL 0.3 1.2 0.5 FINAL [facility] ([facility]), [address] [place] [address] 07/05 CBC w/ auto diff HCT % 40.1 51.0 45.8 FINAL [facility] ([facility]), [address], [address] [place] [address] 07/05 CBC w/ auto diff MCV fL 79.0 92.2 89.5 FINAL [facility] ([facility]), [address], [address] [place] [address] 07/05 CBC w/ auto diff MCH pg 25.7 32.2 29.3 FINAL [facility] ([facility]), [address], [address] [place] [address] 07/05 CBC w/ auto diff MCHC g/dL 32.3 36.5 32.8 FINAL [facility] ([facility]), [address], [address] [place] [address] 07/05 CBC w/ auto diff RDW-C V, % % 11.6 14.4 14.0 FINAL [facility] ([facility]), [address], [address] [place] [address] 07/05 CBC w/ auto diff PLT 10*3/u L 163.0 337.0 168.0 FINAL [facility] ([facility]), [address], [address] [place] [address] 07/05 CBC w/ auto diff WBC 10*3/u L 4.2 9.1 5.4 FINAL [facility] Hao [facility] [address], [address] [place] [address] 07/05 CBC w/ auto diff Aaln # (ANC) 10*3/u L 1.78 5.38 3.78 FINAL [facility] ([facility]), [address], [address] [place] [address] 07/05 CBC w/ auto diff LY # 10*3/u L 1.32 3.57 0.88 Low FINAL [facility] ([facility]), [address], [address] [place] [address] 07/05 CBC w/ auto diff MO # 10*3/u L 0.3 0.82 0.53 FINAL [facility] ([facility]), [address], [address] [place] [address] 07/05 CBC w/ auto diff EO # 10*3/u lL 0.04 0.54 0.15 FINAL [facility] Bui [facility]), [address], [address] [place] [address] 07/05 CBC w/ auto diff BA # 10*3/u L 0.01 0.08 0.02 FINAL [facility] ([facility]), [address], [address] [place] [address] 07/05 CBC w/ auto diff Alan % % 34.0 67.9 70.5 High FINAL [facility] ([facility]), [address], [address] [place] [address] 07/05 CBC w/ auto diff LY % % 21.8 53.1 16.4 Low FINAL [facility] ([facility]), [address], [address] [place] [address] 07/05 CBC w/ auto diff MO % % 5.3 12.2 9.9 FINAL [facility] ([facility]), [address], [address] [place], [place] [id number] 07/05 CBC w/ auto diff EO % % 0.8 7.0 2.8 FINAL [facility] ([facility]), [address], [address] [place] [id number] 07/05 CBC w/ auto diff BA % % 0.2 1.2 0.4 FINAL [facility] ([facility]), [address], [address] [place] [address] 07/05 CBC w/ auto diff RBC 10*6/u L 4.63 6.08 5.12 FINAL [facility] ([facility]), [address], [address] [place] [address] 07/05 CBC w/ auto diff HGB g/dL 13.7 17.5 15.0 FINAL [facility] ([facility]), [address], [address] [place] [address] 07/05 PSA, total ng/mL 0.04 FINAL [facility] [place] [facility] ([facility]), [address] [facility] [address] 10/10 CBC w/ auto diff WBC 10*3/u L 4.2 9.1 3.8 Low FINAL [facility] (EGT), [address], [address] [place], [place] [id number] 10/10 CBC w/ auto diff Alan # (ANC) 10*3/u L 1.78 5.38 2.36 FINAL [facility] (EGT), [address], [address] [place], [place] [id number] 10/10 CBC w/ auto diff LY # 10*3/u L 1.32 3.57 0.77 Low FINAL [facility] (EGT), [address], [address] [facility] [address] 10/10 CBC w/ auto diff MO # 10*3/u L 0.3 0.82 0.46 FINAL [facility] ([facility]), [address], [address] [place] [address] 10/10 CBC w/ auto diff EO # 10*3/u lL 0.04 0.54 0.23 FINAL [facility] ([facility]), [address], [address] [place] [address] 10/10 CBC w/ auto diff BA # 10*3/u L 0.01 0.08 0.01 FINAL [facility] ([facility]), [address], [address] [place] [address] 10/10 CBC w/ auto diff Alan % % 34.0 67.9 61.6 FINAL [facility] (EGT), [address], [address] [place] [address] 10/10 CBC w/ auto diff LY % % 21.8 53.1 20.1 Low FINAL [facility] (EGT), [address], [address] [place] [address] 10/10 CBC w/ auto diff MO % % 5.3 12.2 12.0 FINAL [facility] ([facility]), [address], [address] [place] [address] 10/10 CBC w/ auto diff EO % % 0.8 7.0 6.0 FINAL [facility] (EGT), [address], [address] [place] [address] 10/10 CBC w/ auto diff BA % % 0.2 1.2 0.3 FINAL [facility] ([facility]), [address], [address] [place] [address] 10/10 CBC w/ auto diff RBC 10*6/u L 4.63 6.08 3.70 Low FINAL [facility] ([facility]), [address], [address] [place] [address] 10/10 CBC w/ auto diff HGB g/dL 13.7 17.5 11.2 Low FINAL [facility] (EGT), [address], [address] [place] [address] 10/10 CBC w/ auto diff HCT % 40.1 51.0 33.4 Low FINAL [facility] (EGT), [address], [address] [place] [address] 10/10 CBC w/ auto diff MCV fL 79.0 92.2 90.3 FINAL [facility] (T), [address], [address] [place] [address] 10/10 CBC w/ auto diff MCH pg 25.7 32.2 30.3 FINAL [facility] (T), [address], [address] [place], [place] [address] 10/10 CBC w/ auto diff MCHC g/dL 32.3 36.5 33.5 FINAL [facility] (T), [address], [address] [place] [address] 10/10 CBC w/ auto diff RDW-C V, % % 11.6 14.4 14.4 FINAL [facility] (T), [address], [address] [place] [address] 10/10 CBC w/ auto diff PLT 10*3/u L 163.0 337.0 154.0 Low FINAL [facility] (T), [address], [address] [place] [address] 10/10 PSA, total ng/mL 0.04 FINAL [facility] ([facility]), [address] [place] [address] 10/10 Darren tin ng/mL 10.5 307.3 207.9 FINAL [facility] [place] [facility] ([facility]), [address] [place] [address] 10/10 CMP - Core Lab Sodiu m mmol/L 136.0 145.0 140 FINAL [facility] [place] [facility] ([facility]), [address] [place] [address] 10/10 CMP - Core Lab Potas sium mmol/L 3.5 5.1 4.6 FINAL [facility] ([facility]), [address] [place] [address] [place] [address] 10/10 CMP - Core Lab Chlor naif mmol/L 98.0 107.0 104 FINAL [facility] ([facility]), [address] [place] [address] 10/10 CMP - Core Lab CO2 mmol/L 20.0 31.0 27.7 FINAL [facility] ([facility]), [address] [place] [address] [place] [address] 10/10 CMP - Core Lab Anion gap, mmol/ L mmol/L 4.0 15.0 8.3 FINAL [facility] ([facility]), [address] [place] [address] 10/10 CMP - Core Lab BUN mg/dL 9.0 23.0 19 FINAL [facility] ([facility]), [address] [place] [address] 10/10 CMP - Core Lab BUN/C reati nine ratio 0.0 25.0 18.3 FINAL [facility] ([facility]), [address] [place] [address] [place] [address] 10/10 CMP - Core Lab Creat inine mg/dL 0.73 1.18 1.04 FINAL [facility] ([facility]), [address] [place] [address] [place] [address] 10/10 CMP - Core Lab GFR non-A frica n Ameri can, estim ated mL/min /1.73m >60.0 FINAL [facility] ([facility]), [address] [place] [address] [place] [address] 10/10 CMP - Core Lab GFR Afric an Ameri can, estim ated mL/min /1.73m >60.0 FINAL [facility] ([facility]), [address] [place] [address] [place] [address] 10/10 CMP - Core Lab Gluco se mg/dL 74.0 106.0 110 High FINAL [facility] ([facility]), [address] [place] [address] [place] [address] 10/10 CMP - Core Lab Calci um mg/dL 8.7 10.6 9.6 FINAL [facility] ([facility]), [address] [place] [address] [place] [address] 10/10 CMP - Core Lab Album in g/dL 3.4 5.0 3.7 FINAL [facility] ([facility]), [address] [place] [address] [place] [address] 10/10 CMP - Core Lab Total prote in g/dL 5.7 8.2 6.4 FINAL [facility] ([facility]), [address] [place] [address] [place] [address] 10/10 CMP - Core Lab A/G ratio 1.0 2.0 1.4 FINAL [facility] ([facility]), [address] [place] [address] [place] [address] 10/10 CMP - Core Lab Alkal ine phosp hatas e U/L 46.0 116.0 33 Low FINAL [facility] ([facility]), [address] [place] [address] [place] [address] 10/10 CMP - Core Lab ALT/S GPT U/L 10.0 49.0 27 FINAL [facility] ([facility]), [address] [place] [address] [place] [address] 10/10 CMP - Core Lab AST/S GOT U/L 0.0 34.0 25 FINAL [facility] ([facility]), [address] [place] [address] [place] [address] 10/10 CMP - Core Lab Bilir ubin, total mg/dL 0.3 1.2 0.4 FINAL [facility] ([facility]), [address] [place] [address] [place] [address] 10/10 TIBC and perce nt sat w/ iron panel Iron / FE ug/dL 65.0 175.0 84 FINAL [facility] ([facility]), [address] [place] [address] [place] [address] 10/10 TIBC and perce nt sat w/ iron panel TIBC ug/dL 250.0 425.0 398 FINAL [facility] [place] ([facility]), [address] [facility] [address] 10/10 TIBC and perce nt sat w/ iron panel Iron, % satur ation % 20.0 50.0 21 FINAL [facility] [place] ([facility]), [facility] [address] 10/24 Lab 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 t 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 01/10 PSA, total ng/mL 0.04 [facility]AL [facility] [place] [facility]), [facility] [address] 01/10 CBC w/ auto diff WBC 10*3/u L 4.2 9.1 4.1 Low [facility] [address], [address] [place] [address] 01/10 CBC w/ auto diff Alan # (ANC) 10*3/u L 1.78 5.38 2.90 FINAL [facility] ([facility]), [address], [address] [place] [address] 01/10 CBC w/ auto diff LY # 10*3/u L 1.32 3.57 0.69 Low [facility] [address], [address] [place] [address] 01/10 CBC w/ auto diff MO # 10*3/u L 0.3 0.82 0.37 [facility] [address], [address] [facility] [address] 01/10 CBC w/ auto diff EO # 10*3/u lL 0.04 0.54 0.11 [facility] [address], [address] [place] [address] 01/10 CBC w/ auto diff BA # 10*3/u L 0.01 0.08 0.01 [facility] [address], [address] [place] [address] 01/10 CBC w/ auto diff Alan % % 34.0 67.9 71.1 High FINAL [facility] Bui [facility] ([facility]), [address], [address] [place] [address] 01/10 CBC w/ auto diff LY % % 21.8 53.1 16.9 Low FINAL [facility] Bui [facility] ([facility]), [address], [address] [place] [address] 01/10 CBC w/ auto diff MO % % 5.3 12.2 9.1 FINAL [facility] Bui [facility] ([facility]), [address], [address] [place] [address] 01/10 CBC w/ auto diff EO % % 0.8 7.0 2.7 FINAL [facility] ([facility]), [address], [address] [place] [address] 01/10 CBC w/ auto diff BA % % 0.2 1.2 0.2 FINAL [facility]), [address], [address] [place] [address] 01/10 CBC w/ auto diff RBC 10*6/u L 4.63 6.08 3.46 Low FINAL [facility] ([facility]), [address], [address] [place] [address] 01/10 CBC w/ auto diff HGB g/dL 13.7 17.5 10.5 Low FINAL [facility] [place] ([facility]), [address], [address] [place] [address] 01/10 CBC w/ auto diff HCT % 40.1 51.0 31.3 Low FINAL [place] ([facility]), [address], [address] [place] [address] 01/10 CBC w/ auto diff MCV fL 79.0 92.2 90.5 FINAL [place] ([facility]), [address], [address] [place], [place] [id number] 01/10 CBC w/ auto diff MCH pg 25.7 32.2 30.3 [facility] [address], [address] [place] [address] 01/10 CBC w/ auto diff MCHC g/dL 32.3 36.5 33.5 [facility] [address], [address] [place] [address] 01/10 CBC w/ auto diff RDW-C V, % % 11.6 14.4 12.7 FINAL [facility] (T), [address], [address] [place] [address] 01/10 CBC w/ auto diff PLT 10*3/u L 163.0 337.0 182.0 FINAL [facility] ([facility]), [address], [address] [place] [address] 01/10 CMP - Core Lab Sodiu m mmol/L 136.0 145.0 139 FINAL [facility] ([facility]), [address] [place] [address] 01/10 CMP - Core Lab Potas sium mmol/L 3.5 5.1 4.1 FINAL [facility] ([facility]), [address] [place] [address] 01/10 CMP - Core Lab Chlor naif mmol/L 98.0 107.0 105 FINAL [facility] ([facility]), [address] [place] [address] 01/10 CMP - Core Lab CO2 mmol/L 20.0 31.0 27.2 FINAL [facility] ([facility]), [address] [place] [address] 01/10 CMP - Core Lab Anion gap, mmol/ L mmol/L 4.0 15.0 6.8 FINAL [facility] [place] ([facility]), [address] [place] [address]84 01/10 CMP - Core Lab BUN mg/dL 9.0 23.0 31 High FINAL [facility] ([facility]), [address] [place] [address] [place] [address] 01/10 CMP - Core Lab BUN/C reati nine ratio 0.0 25.0 28.7 High FINAL [facility] ([facility]), [address] [place] [address] [place] [address] 01/10 CMP - Core Lab Creat inine mg/dL 0.73 1.18 1.08 FINAL [facility] ([facility]), [address] [place] [address] 01/10 CMP - Core Lab GFR non-A frica n Ameri can, estim ated mL/min /1.73m >60.0 [facility]), [address] [place] [address] 01/10 CMP - Core Lab GFR Afric an Ameri can, estim ated mL/min /1.73m >60.0 FINAL [facility] ([facility]), [address] [place] [address] [place] [address] 01/10 CMP - Core Lab Gluco se mg/dL 74.0 106.0 103 FINAL [facility] ([facility]), [address] [place] [address] [place] [address] 01/10 CMP - Core Lab Calci um mg/dL 8.7 10.6 10.1 FINAL [facility] ([facility]), [address] [place] [address] [place] [address] 01/10 CMP - Core Lab Album in g/dL 3.4 5.0 4.0 FINAL [facility] ([facility]), [address] [place] [address] [place] [address] 01/10 CMP - Core Lab Total prote in g/dL 5.7 8.2 6.7 [facility]), [address] [place] [address] [place] [address] 01/10 CMP - Core Lab A/G ratio 1.0 2.0 1.5 [facility]), [address] [place] [address] [place] [address] 01/10 CMP - Core Lab Alkal ine phosp hatas e U/L 46.0 116.0 36 Low [facility]), [address] [place] [address] [place] [address] 01/10 CMP - Core Lab ALT/S GPT U/L 10.0 49.0 22 FINAL [facility] ([facility]), [address] [place] [address] [place] [address] 01/10 CMP - Core Lab AST/S GOT U/L 0.0 34.0 23 FINAL [facility] ([facility]), [address] [place] [address] 01/10 CMP - Core Lab Bilir ubin, total mg/dL 0.3 1.2 0.4 FINAL [facility] ([facility]), [address] [place] [address] 04/12 PSA, total ng/mL 0.04 FINAL [facility] ([facility]), [address] [place] [address]60 04/12 CBC w/ auto diff WBC 10*3/u L 4.2 9.1 4.7 FINAL [facility] ([facility]), [address], [address] [facility] [address] 04/12 CBC w/ auto diff Alan # (ANC) 10*3/u L 1.78 5.38 3.26 FINAL [facility] ([facility]), [address], [address] [facility] [address] 04/12 CBC w/ auto diff LY # 10*3/u L 1.32 3.57 0.88 Low FINAL [facility] ([facility]), [address], [address] [facility] [address] 04/12 CBC w/ auto diff MO # 10*3/u L 0.3 0.82 0.42 FINAL [facility] ([facility]), [address], [address] [place] [address] 04/12 CBC w/ auto diff EO # 10*3/u lL 0.04 0.54 0.15 FINAL [facility] [address], [address] [place] [address] 04/12 CBC w/ auto diff BA # 10*3/u L 0.01 0.08 0.02 FINAL [facility] [address], [address] [place] [address] 04/12 CBC w/ auto diff Alan % % 34.0 67.9 68.9 High [facility]AL [facility] ([facility]), [address], [address] [place] [address] 04/12 CBC w/ auto diff LY % % 21.8 53.1 18.6 Low FINAL [facility] ([facility]), [address], [address] [place] [address] 04/12 CBC w/ auto diff MO % % 5.3 12.2 8.9 FINAL [facility] ([facility]), [address], [address] [place] [address] 04/12 CBC w/ auto diff EO % % 0.8 7.0 3.2 FINAL [facility] ([facility]), [address], [address] [place] [address] 04/12 CBC w/ auto diff BA % % 0.2 1.2 0.4 FINAL [facility] ([facility]), [address], [address] [place] [address] 04/12 CBC w/ auto diff RBC 10*6/u L 4.63 6.08 3.84 Low [facility] ([facility] [address], [address] [place] [address] 04/12 CBC w/ auto diff HGB g/dL 13.7 17.5 11.4 Low FINAL [facility] ([facility]), [address], [address] [place], [place] [id number] 04/12 CBC w/ auto diff HCT % 40.1 51.0 35.6 Low FINAL [facility] ([facility]), [address], [address] [place], [place] [id number] 04/12 CBC w/ auto diff MCV fL 79.0 92.2 92.7 High FINAL [facility] (T), [address], [address] [place], [place] [address] 04/12 CBC w/ auto diff MCH pg 25.7 32.2 29.7 FINAL [facility] (T), [address], [address] [place], [place] [address] 04/12 CBC w/ auto diff MCHC g/dL 32.3 36.5 32.0 Low FINAL [facility] (T), [address], [address] [place], [place] [address] 04/12 CBC w/ auto diff RDW-C V, % % 11.6 14.4 13.7 FINAL [facility] (T), [address], [address] [place], [place] [address] 04/12 CBC w/ auto diff PLT 10*3/u L 163.0 337.0 177.0 FINAL [facility] (T), [address], [address] [place], [place] [id number] 04/12 CMP - Core Lab Sodiu m mmol/L 136.0 145.0 140 FINAL [facility] ([facility]), [address] [place], [place] [id number] 04/12 CMP - Core Lab Potas sium mmol/L 3.5 5.1 4.7 FINAL [facility] ([facility]), [address] [place], [place] [id number] 04/12 CMP - Core Lab Chlor naif mmol/L 98.0 107.0 105 FINAL [facility] ([facility]), [address] [place], [place] [id number] 04/12 CMP - Core Lab CO2 mmol/L 20.0 31.0 25.7 FINAL [facility] ([facility]), [address] [place] [address] 04/12 CMP - Core Lab Anion gap, mmol/ L mmol/L 4.0 15.0 9.3 FINAL [facility] ([facility]), [address] [place] [address] 15583 04/12 CMP - Core Lab BUN mg/dL 9.0 23.0 20 FINAL [facility] ([facility]), [address] [place] [address] 29665 04/12 CMP - Core Lab BUN/C reati nine ratio 0.0 25.0 19.0 FINAL [facility] ([facility]), [address] [place] [address] 92673 04/12 CMP - Core Lab Creat inine mg/dL 0.73 1.18 1.05 FINAL [facility] ([facility]), [address] [place] [address] 44635 04/12 CMP - Core Lab GFR non-A frica n Ameri can, estim ated mL/min /1.73m >60.0 FINAL [facility] ([facility]), [address] [place] [address]873 04/12 CMP - Core Lab GFR Afric an Ameri can, estim ated mL/min /1.73m >60.0 FINAL [facility] ([facility]), [address] [place] [address] 24999 04/12 CMP - Core Lab Gluco se mg/dL 74.0 106.0 109 High FINAL [facility] ([facility]), [address] [place] [address] 56042 04/12 CMP - Core Lab Calci um mg/dL 8.7 10.6 10.0 FINAL [facility] ([facility]), [address] [place] [address] 9[address]59 04/12 CMP - Core Lab Album in g/dL 3.4 5.0 3.8 FINAL [facility] ([facility]), [address] [place] [address] 20903 04/12 CMP - Core Lab Total prote in g/dL 5.7 8.2 6.6 FINAL [facility] ([facility]), [address] [place] [address] 36687 04/12 CMP - Core Lab A/G ratio 1.0 2.0 1.4 FINAL [facility] ([facility]), [address] [place] [address] 79334 04/12 CMP - Core Lab Alkal ine phosp hatas e U/L 46.0 116.0 35 Low FINAL [facility] ([facility]), [address] [place] [address] 29804 04/12 CMP - Core Lab ALT/S GPT U/L 10.0 49.0 34 FINAL [facility] ([facility]), [address] [place] [address] 04/12 CMP - Core Lab AST/S GOT U/L 0.0 34.0 38 High FINAL [facility] ([facility]), [address] [place] [address] 43795 04/12 CMP - Core Lab Bilir ubin, total mg/dL 0.3 1.2 0.4 FINAL [facility] ([facility]), [address] [place] [address] [place] [address] 07/10 CBC w/ auto diff WBC 10*3/u L 4.2 9.1 5.3 FINAL [facility] ([facility]), [address], [address] [place] [address] 07/10 CBC w/ auto diff Alan # (ANC) 10*3/u L 1.78 5.38 3.62 FINAL [facility] ([facility]), [address], [address] [place] [address] 07/10 CBC w/ auto diff LY # 10*3/u L 1.32 3.57 0.96 Low [facility] [address], [address] [place] [address] 07/10 CBC w/ auto diff MO # 10*3/u L 0.3 0.82 0.47 FINAL [place] [place] ([facility]), [address], [address] [place] [address] 07/10 CBC w/ auto diff EO # 10*3/u lL 0.04 0.54 0.24 FINAL [place] [facility] [address], [address] [place] [address] 07/10 CBC w/ auto diff BA # 10*3/u L 0.01 0.08 0.01 FINAL [place] [facility]), [address], [address] [place] [address] 07/10 CBC w/ auto diff Alan % % 34.0 67.9 68.3 High FINAL [place] [facility]), [address], [address] [place] [address] 07/10 CBC w/ auto diff LY % % 21.8 53.1 18.1 Low FINAL [place]), [address], [address] [place] [address] 07/10 CBC w/ auto diff MO % % 5.3 12.2 8.9 FINAL [facility]), [address], [address] [place] [address] 07/10 CBC w/ auto diff EO % % 0.8 7.0 4.5 FINAL [place] B[facility] [place] ([facility]), [address], [address] [place] [address] 07/10 CBC w/ auto diff BA % % 0.2 1.2 0.2 FINAL [place] ([facility]), [address], [address] [place] [address] 07/10 CBC w/ auto diff RBC 10*6/u L 4.63 6.08 4.05 Low FINAL [place] B[facility] [place] ([facility]), [address], [address] [place] [id number] 07/10 CBC w/ auto diff HGB g/dL 13.7 17.5 12.1 Low FINAL [facility] ([facility]), [address], [address] [place] [address] 07/10 CBC w/ auto diff HCT % 40.1 51.0 37.2 Low FINAL [facility] ([facility]), [address], [address] [place], [place] [id number] 07/10 CBC w/ auto diff MCV fL 79.0 92.2 91.9 FINAL [facility] ([facility]), [address], [address] [place] [address] 07/10 CBC w/ auto diff MCH pg 25.7 32.2 29.9 FINAL [facility] ([facility]), [address], [address] [place], [place] [address] 07/10 CBC w/ auto diff MCHC g/dL 32.3 36.5 32.5 FINAL [facility] ([facility]), [address], [address] [place] [address] 07/10 CBC w/ auto diff RDW-C V, % % 11.6 14.4 13.6 FINAL [facility] ([facility]), [address], [address] [place] [address] 07/10 CBC w/ auto diff PLT 10*3/u L 163.0 337.0 166.0 FINAL [facility] ([facility]), [address], [address] [place], [place] [id number] 07/10 CMP - Core Lab Sodiu m mmol/L 136.0 145.0 140 [facility]), [address] [place], [place] [phone] 07/10 CMP - Core Lab Potas sium mmol/L 3.5 5.1 4.4 [facility] [place]), [address] [place] [address] [place] [address] 07/10 CMP - Core Lab Chlor naif mmol/L 98.0 107.0 105 FINAL [facility] ([facility]), [address] [place] [address]2419 07/10 CMP - Core Lab CO2 mmol/L 20.0 31.0 25.7 FINAL [facility] ([facility]), [address] [place] [address]642 07/10 CMP - Core Lab Anion gap, mmol/ L mmol/L 4.0 15.0 9.3 FINAL [facility] ([facility]), [address] [place] [address] 07/10 CMP - Core Lab BUN mg/dL 9.0 23.0 23 FINAL [facility] ([facility]), [address] [place] [address] 07/10 CMP - Core Lab BUN/C reati nine ratio 0.0 25.0 22.8 FINAL [facility] ([facility]), [address] [place] [address] [place] [address] 07/10 CMP - Core Lab Creat inine mg/dL 0.73 1.18 1.01 FINAL [facility] ([facility]), [address] [place] [address] [place] [address] 07/10 CMP - Core Lab eGFR, mL/mi n/1.7 3 mL/min /1.73m 60.0 0.0 >60.0 FINAL [facility] ([facility]), [address] [place] [address] [place] [address] 07/10 CMP - Core Lab Gluco se mg/dL 74.0 106.0 124 High FINAL [facility] ([facility]), [address] [place] [address] 07/10 CMP - Core Lab Calci um mg/dL 8.7 10.6 10.4 FINAL [facility] ([facility]), [address] [place] [address] [place] [address] 07/10 CMP - Core Lab Album in g/dL 3.4 5.0 4.1 FINAL [facility] ([facility]), [address] [place] [address]24 07/10 CMP - Core Lab Total prote in g/dL 5.7 8.2 7.1 FINAL [facility] ([facility]), [address] [place] [address]12 07/10 CMP - Core Lab A/G ratio 1.0 2.0 1.4 FINAL [facility] ([facility]), [address] [place] [address] 07/10 CMP - Core Lab Alkal ine phosp hatas e U/L 46.0 116.0 38 Low FINAL [facility] ([facility]), [address] [place] [address] 19294 07/10 CMP - Core Lab ALT/S GPT U/L 10.0 49.0 23 FINAL [facility] ([facility]), [address] [place] [address]3 07/10 CMP - Core Lab AST/S GOT U/L 0.0 34.0 26 FINAL [facility] ([facility]), [address] [place] [address] 06175 07/10 CMP - Core Lab Bilir ubin, total mg/dL 0.3 1.2 0.4 FINAL [facility] ([facility]), [address] [place] [address] 83146 07/10 PSA, total ng/mL 0.04 FINAL [facility] ([facility]), [address] [place] [address] 27210 10/10 CBC w/ auto diff WBC 10*3/u L 4.2 9.1 4.4 FINAL [facility] ([facility]), [address], [address] [facility] [address] 10/10 CBC w/ auto diff Alan # (ANC) 10*3/u L 1.78 5.38 3.10 FINAL [facility]ne [facility] ([facility]), [address], [address] [place] [address] 10/10 CBC w/ auto diff LY # 10*3/u L 1.32 3.57 0.74 Low FINAL [facility]ne [facility] ([facility]), [address], [address] [place] [address] 10/10 CBC w/ auto diff MO # 10*3/u L 0.3 0.82 0.36 FINAL [facility] ([facility]), [address], [address] [place] [address] 10/10 CBC w/ auto diff EO # 10*3/u lL 0.04 0.54 0.14 FINAL [facility] (T), [address], [address] [place] [address] 10/10 CBC w/ auto diff BA # 10*3/u L 0.01 0.08 0.02 FINAL [facility] ([facility]), [address], [address] [place] [address] 10/10 CBC w/ auto diff Alan % % 34.0 67.9 71.0 High FINAL [facility]ne [facility] (T), [address], [address] [place] [address] 10/10 CBC w/ auto diff LY % % 21.8 53.1 17.0 Low FINAL [facility] (T), [address], [address] [place] [address] 10/10 CBC w/ auto diff MO % % 5.3 12.2 8.3 FINAL [facility] ([facility]), [address], [address] [place] [address] 10/10 CBC w/ auto diff EO % % 0.8 7.0 3.2 FINAL [facility] ([facility]), [address], [address] [place] [address] 10/10 CBC w/ auto diff BA % % 0.2 1.2 0.5 FINAL [facility] ([facility] [address], [address] [place] [address] 10/10 CBC w/ auto diff RBC 10*6/u L 4.63 6.08 4.04 Low FINAL [facility] ([facility]), [address], [address] [place], [place] [id number] 10/10 CBC w/ auto diff HGB g/dL 13.7 17.5 12.4 Low FINAL [facility] (T), [address], [address] [place] [address] 10/10 CBC w/ auto diff HCT % 40.1 51.0 38.0 Low FINAL [facility] (T), [address], [address] [place] [address] 10/10 CBC w/ auto diff MCV fL 79.0 92.2 94.1 High FINAL [facility] (T), [address], [address] [place] [address] 10/10 CBC w/ auto diff MCH pg 25.7 32.2 30.7 FINAL [facility] (T), [address], [address] [place] [address] 10/10 CBC w/ auto diff MCHC g/dL 32.3 36.5 32.6 FINAL [facility] (T), [address], [address] [place] [address] 10/10 CBC w/ auto diff RDW-C V, % % 11.6 14.4 13.9 FINAL [facility] (T), [address], [address] [place] [address] 10/10 CBC w/ auto diff PLT 10*3/u L 163.0 337.0 174.0 FINAL [facility] (T), [address], [address] [place] [address] 10/10 CMP - Core Lab Sodiu m mmol/L 136.0 145.0 139 FINAL [facility] ([facility]), [address] [address] 10/10 CMP - Core Lab Potas sium mmol/L 3.5 5.1 4.2 FINAL [facility] ([facility]), [address] [place] [address] [place] [address] 10/10 CMP - Core Lab Chlor naif mmol/L 98.0 107.0 107 FINAL [facility] ([facility]), [address] [place] [address] [place] [address] 10/10 CMP - Core Lab CO2 mmol/L 20.0 31.0 27.3 FINAL [facility] ([facility]), [address] [place] [address] 10/10 CMP - Core Lab Anion gap, mmol/ L mmol/L 4.0 15.0 4.7 FINAL [facility] ([facility]), [address] [place] [address]75 10/10 CMP - Core Lab BUN mg/dL 9.0 23.0 15 FINAL [facility] ([facility]), [address] [place] [address] 10/10 CMP - Core Lab BUN/C reati nine ratio 0.0 25.0 15.3 FINAL [facility] ([facility]), [address] [place] [address] [place] [address] 10/10 CMP - Core Lab Creat inine mg/dL 0.73 1.18 0.98 FINAL [facility] ([facility]), [address] [place] [address] 10/10 CMP - Core Lab eGFR, mL/mi n/1.7 3 mL/min /1.73m 60.0 0.0 >60.0 FINAL [facility] ([facility]), [address] [place] [address] [place] [address] 10/10 CMP - Core Lab Gluco se mg/dL 74.0 106.0 95 FINAL [facility] ([facility]), [address] [place] [address] [place] [address] 10/10 CMP - Core Lab Calci um mg/dL 8.7 10.6 9.5 FINAL [facility] ([facility]), [address] [place] [address] [place] [address] 10/10 CMP - Core Lab Album in g/dL 3.4 5.0 3.8 FINAL [facility] ([facility]), [address] [place] [address] [place] [address] 10/10 CMP - Core Lab Total prote in g/dL 5.7 8.2 6.5 FINAL Sh[facility] ([facility]), [address] [place] [address] [place] [address] 10/10 CMP - Core Lab A/G ratio 1.0 2.0 1.4 FINAL [facility] ([facility]), [address] [place] [address] [place] [address] 10/10 CMP - Core Lab Alkal ine phosp hatas e U/L 46.0 116.0 44 Low FINAL [facility] ([facility] [facility] [address] [place] [address] [place] [address] 10/10 CMP - Core Lab ALT/S GPT U/L 10.0 49.0 19 FINAL Sh[facility] ([facility]), [address] [place] [address] [place] [address] 10/10 CMP - Core Lab AST/S GOT U/L 0.0 34.0 23 FINAL [facility] ([facility]), [address] [place] [address] [place] [address] 10/10 CMP - Core Lab Bilir ubin, total mg/dL 0.3 1.2 0.4 FINAL [facility] ([facility]), [address] [place] [address] [place] [address] 10/10 PSA, total ng/mL 0.04 FINAL [facility] ([facility]), [address] [place] [address] [place] [address] 01/10 PSA, total ng/mL < 0.04 [facility]), [address] [place] [address] [place] [address] 01/10 CMP - Core Lab Sodiu m mmol/L 136.0 145.0 138 FINAL [facility] ([facility]), [address] [place] [address] [place] [address] 01/10 CMP - Core Lab Potas sium mmol/L 3.5 5.1 4.2 FINAL [facility] ([facility]), [address] [place] [address] [place] [address] 01/10 CMP - Core Lab Chlor naif mmol/L 98.0 107.0 106 FINAL [facility] ([facility]), [address] [place] [address] [place] [address] 01/10 CMP - Core Lab CO2 mmol/L 20.0 31.0 27.0 FINAL [facility] ([facility]), [address] [place] [address] [place] [address] 01/10 CMP - Core Lab Anion gap, mmol/ L mmol/L 4.0 15.0 5.0 FINAL [facility] ([facility]), [address] [place] [address] [place] [address] 01/10 CMP - Core Lab BUN mg/dL 9.0 23.0 18 FINAL [facility] ([facility]), [address] [place] [address] [place] [address] 01/10 CMP - Core Lab BUN/C reati nine ratio 0.0 25.0 18.6 FINAL [facility] ([facility]), [address] [place] [address] [place] [address] 01/10 CMP - Core Lab Creat inine mg/dL 0.73 1.18 0.97 FINAL [facility] ([facility]), [address] [place] [address] [place] [address] 01/10 CMP - Core Lab eGFR, mL/mi n/1.7 3 mL/min /1.73m 60.0 0.0 >60.0 FINAL [facility] ([facility]), [address] [place] [address] [place] [address] 01/10 CMP - Core Lab Gluco se mg/dL 74.0 106.0 104 FINAL [facility] ([facility]), [address] [place] [address] [place] [address] 01/10 CMP - Core Lab Calci um mg/dL 8.7 10.6 10.1 FINAL [facility] ([facility]), [address] [place] [address] [place] [address] 01/10 CMP - Core Lab Album in g/dL 3.4 5.0 4.2 FINAL [facility] ([facility]), [address] [place] [address] [place] [address] 01/10 CMP - Core Lab Total prote in g/dL 5.7 8.2 7.3 FINAL [facility] ([facility]), [address] [place] [address] [place] [address] 01/10 CMP - Core Lab A/G ratio 1.0 2.0 1.4 FINAL [facility] ([facility]), [address] [place] [address] [place] [address] 01/10 CMP - Core Lab Alkal ine phosp hatas e U/L 46.0 116.0 48 FINAL [facility] ([facility]), [address] [place] [address] [place] [address] 01/10 CMP - Core Lab ALT/S GPT U/L 10.0 49.0 23 FINAL [facility] ([facility]), [address] [place] [address] [place] [address] 01/10 CMP - Core Lab AST/S GOT U/L 0.0 34.0 22 FINAL [facility] ([facility]), [address] [place] [address] [place] [address] 01/10 CMP - Core Lab Bilir ubin, total mg/dL 0.3 1.2 0.5 FINAL [facility] ([facility]), [address] [place] [address] [place] [address] 01/10 CBC w/ auto diff WBC 10*3/u L 4.2 9.1 5.7 FINAL [facility] ([facility]), [address], [address] [place] [address] 01/10 CBC w/ auto diff Alan # (ANC) 10*3/u L 1.78 5.38 3.77 FINAL [facility] (T), [address], [address] [place] [address] 01/10 CBC w/ auto diff LY # 10*3/u L 1.32 3.57 1.16 Low [facility] [address], [address] [place] [address] 01/10 CBC w/ auto diff MO # 10*3/u L 0.3 0.82 0.49 [facility] [address], [address] [place] [address] 01/10 CBC w/ auto diff EO # 10*3/u lL 0.04 0.54 0.25 [facility] [address], [address] [place] [address] 01/10 CBC w/ auto diff BA # 10*3/u L 0.01 0.08 0.03 [facility] [address], [address] [place] [address] 01/10 CBC w/ auto diff Alan % % 34.0 67.9 66.1 [facility] [address], [address] [place] [address] 01/10 CBC w/ auto diff LY % % 21.8 53.1 20.4 Low [facility] [address], [address] [place] [address] 01/10 CBC w/ auto diff MO % % 5.3 12.2 8.6 FINAL [facility] ([facility]), [address], [address] [place] [address] 01/10 CBC w/ auto diff EO % % 0.8 7.0 4.4 [facility] [address], [address] [facility] [address] 01/10 CBC w/ auto diff BA % % 0.2 1.2 0.5 FINAL [facility] (T), [address], [address] [place] [address] 01/10 CBC w/ auto diff RBC 10*6/u L 4.63 6.08 4.78 FINAL [facility] ([facility]), [address], [address] [place], [place] [address] 01/10 CBC w/ auto diff HGB g/dL 13.7 17.5 14.4 FINAL [facility] ([facility]), [address], [address] [place], [place] [id number] 01/10 CBC w/ auto diff HCT % 40.1 51.0 43.0 FINAL [facility] ([facility]), [address], [address] [place] [address] 01/10 CBC w/ auto diff MCV fL 79.0 92.2 90.0 FINAL [facility] (T), [address], [address] [place] [address] 01/10 CBC w/ auto diff MCH pg 25.7 32.2 30.1 FINAL [facility] ([facility]), [address], [address] [place] [address] 01/10 CBC w/ auto diff MCHC g/dL 32.3 36.5 33.5 FINAL [facility] (T), [address], [address] [place] [address] 01/10 CBC w/ auto diff RDW-C V, % % 11.6 14.4 13.2 FINAL [facility] ([facility]), [address], [address] [place] [address] 01/10 CBC w/ auto diff PLT 10*3/u L 163.0 337.0 191.0 FINAL [facility] ([facility]), [address], [address] [facility] [address] 04/11 CMP - Core Lab Sodiu m mmol/L 136.0 145.0 142 FINAL [facility] ([facility]), [address] [place] [address] 04/11 CMP - Core Lab Potas sium mmol/L 3.4 5.1 4.5 FINAL [facility] ([facility]), [address] [place] [address] 04/11 CMP - Core Lab Chlor naif mmol/L 98.0 107.0 106 FINAL [facility] ([facility]), [address] [place] [address] 04/11 CMP - Core Lab CO2 mmol/L 20.0 31.0 25.3 FINAL [facility] ([facility]), [address] [place] [address] 04/11 CMP - Core Lab Anion gap, mmol/ L mmol/L 4.0 15.0 10.7 FINAL [facility] ([facility]), [address] [place] [address] 04/11 CMP - Core Lab BUN mg/dL 9.0 23.0 23 FINAL [facility] ([facility]), [address] [place] [address] 04/11 CMP - Core Lab BUN/C reati nine ratio 0.0 25.0 24.2 FINAL [facility] ([facility]), [address] [place] [address] 04/11 CMP - Core Lab Creat inine mg/dL 0.73 1.18 0.95 FINAL [facility] ([facility]), [address] [place] [address] 04/11 CMP - Core Lab eGFR, mL/mi n/1.7 3 mL/min /1.73m 60.0 0.0 >60.0 FINAL [facility] ([facility]), [address] [place] [address] 04/11 CMP - Core Lab Gluco se mg/dL 74.0 106.0 87 FINAL [facility] ([facility]), [address] [place] [address] [place] [address] 04/11 CMP - Core Lab Calci um mg/dL 8.7 10.6 9.9 FINAL [facility] ([facility]), [address] [place] [address] [place] [address] 04/11 CMP - Core Lab Album in g/dL 3.4 5.0 3.9 FINAL [facility] ([facility]), [address] [place] [address] [place] [address] 04/11 CMP - Core Lab Total prote in g/dL 5.7 8.2 6.3 FINAL [facility] ([facility]), [address] [place] [address] [place] [address] 04/11 CMP - Core Lab A/G ratio 1.0 2.0 1.6 FINAL [facility] ([facility]), [address] [place] [address] [place] [address] 04/11 CMP - Core Lab Alkal ine phosp hatas e U/L 46.0 116.0 34 Low FINAL [facility] ([facility]), [address] [place] [address] [place] [address] 04/11 CMP - Core Lab ALT/S GPT U/L 10.0 49.0 19 FINAL [facility] ([facility]), [address] [place] [address] [place] [address] 04/11 CMP - Core Lab AST/S GOT U/L 0.0 34.0 22 FINAL [facility] ([facility]), [address] [place] [address] [place] [address] 04/11 CMP - Core Lab Bilir ubin, total mg/dL 0.3 1.2 0.3 FINAL [facility] ([facility]), [address] [place] [address] [place] [address] 04/11 PSA, total ng/mL < 0.04 FINAL [facility] ([facility]), [address] [place] [address] 04/11 CBC w/ auto diff WBC 10*3/u L 4.2 9.1 3.8 Low FINAL [facility] ([facility]), [address], [address] [place] [address] 04/11 CBC w/ auto diff Alan # (ANC) 10*3/u L 1.78 5.38 2.53 FINAL [facility] ([facility]), [address], [address] [place] [address] 04/11 CBC w/ auto diff LY # 10*3/u L 1.32 3.57 0.70 Low FINAL [facility] ([facility]), [address], [address] [place] [address] 04/11 CBC w/ auto diff MO # 10*3/u L 0.3 0.82 0.40 FINAL [facility] ([facility]), [address], [address] [place] [address] 04/11 CBC w/ auto diff EO # 10*3/u lL 0.04 0.54 0.17 FINAL [facility] ([facility]), [address], [address] [place] [address] 04/11 CBC w/ auto diff BA # 10*3/u L 0.01 0.08 0.01 FINAL [facility] ([facility]), [address], [address] [place] [address] 04/11 CBC w/ auto diff Alan % % 34.0 67.9 66.3 FINAL [facility] ([facility]), [address], [address] [place] [address] 04/11 CBC w/ auto diff LY % % 21.8 53.1 18.4 Low FINAL [facility] ([facility]), [address], [address] [place] [address] 04/11 CBC w/ auto diff MO % % 5.3 12.2 10.5 FINAL [facility] ([facility]), [address], [address] [place] [address] 04/11 CBC w/ auto diff EO % % 0.8 7.0 4.5 FINAL [facility] ([facility]), [address], [address] [place] [address] 04/11 CBC w/ auto diff BA % % 0.2 1.2 0.3 FINAL [facility] (T), [address], [address] [place] [address] 04/11 CBC w/ auto diff RBC 10*6/u L 4.63 6.08 3.66 Low FINAL [facility] (T), [address], [address] [place] [address] 04/11 CBC w/ auto diff HGB g/dL 13.7 17.5 11.4 Low FINAL [facility] (T), [address], [address] [place] [address] 04/11 CBC w/ auto diff HCT % 40.1 51.0 34.8 Low FINAL [facility] (T), [address], [address] [place] [address] 04/11 CBC w/ auto diff MCV fL 79.0 92.2 95.1 High FINAL [facility] (T), [address], [address] [place] [address] 04/11 CBC w/ auto diff MCH pg 25.7 32.2 31.1 FINAL [facility] ([facility]), [address], [address] [place] [address] 04/11 CBC w/ auto diff MCHC g/dL 32.3 36.5 32.8 FINAL [facility] (T), [address], [address] [place] [address] 04/11 CBC w/ auto diff RDW-C V, % % 11.6 14.4 13.3 FINAL [facility] (T), [address], [address] [place] [address] 04/11 CBC w/ auto diff PLT 10*3/u L 163.0 337.0 183.0 FINAL Shayne [facility] ([facility]), [address], [address] [facility] [address] 07/11 CMP - Core Lab Sodiu m mmol/L 136.0 145.0 143 FINAL Milvia [facility] ([facility]), [address] [place] [address] 07/11 CMP - Core Lab Potas sium mmol/L 3.4 5.1 4.8 FINAL [facility] ([facility]), [address] [place] [address] 07/11 CMP - Core Lab Chlor naif mmol/L 98.0 107.0 105 FINAL [facility] ([facility]), [address] [place] [address] 07/11 CMP - Core Lab CO2 mmol/L 20.0 31.0 29.5 FINAL [facility] ([facility]), [address] [place] [address] 07/11 CMP - Core Lab Anion gap, mmol/ L mmol/L 4.0 15.0 8.[address] [facility] ([facility]), [address] [place] [address] [place] [address] 07/11 CMP - Core Lab BUN mg/dL 9.0 23.0 19 FINAL Milvia [facility] ([facility]), [address] [place] [address] [place] [address] 07/11 CMP - Core Lab Creat inine mg/dL 0.73 1.18 1.02 FINAL Milvia [facility] ([facility]), [address] [place] [address] 07/11 CMP - Core Lab BUN/C reati nine ratio 0.0 25.0 18.6 [facility]AL [facility] [place] [facility]), [address] [place] [address] 07/11 CMP - Core Lab eGFR, mL/mi n/1.7 3 mL/min /1.73m >60.0 FINAL [facility] [place] ([facility]), [address] [place] [address] [place] [address] 07/11 CMP - Core Lab Gluco se mg/dL 74.0 106.0 99 [address] [facility] ([facility]), [address] [place] [address] [place] [address] 07/11 CMP - Core Lab Calci um mg/dL 8.7 10.6 10.1 FINAL [facility] ([facility]), [address] [place] [address] [place] [address] 07/11 CMP - Core Lab Album in g/dL 3.4 5.0 3.[address] [facility] ([facility]), [address] [place] [address] [place] [address] 07/11 CMP - Core Lab Total prote in g/dL 5.7 8.2 6.[address] [facility] ([facility]), [address] [place] [address] [place] [address] 07/11 CMP - Core Lab A/G ratio 1.0 2.0 1.4 [facility]AL [facility] ([facility]), [address] [place] [address] [place] [address] 07/11 CMP - Core Lab Alkal ine phosp hatas e U/L 46.0 116.0 36 Low [facility]AL [facility] ([facility]), [address] [place] [address] [place] [address] 07/11 CMP - Core Lab ALT/S GPT U/L 10.0 49.0 21 FINAL [facility] ([facility]), [address] [place] [address] [place] [address] 07/11 CMP - Core Lab AST/S GOT U/L 0.0 34.0 23 FINAL [facility] [place] ([facility]), [address] [place] [address] [place] [address] 07/11 CMP - Core Lab Bilir ubin, total mg/dL 0.3 1.2 0.4 FINAL [facility] [place] ([facility]), [address] [facility] [address] 07/11 CBC w/ auto diff WBC 10*3/u L 4.2 9.1 5.0 FINAL Milvia Johnson [facility] ([facility]), [address], [address] [place] [address] 07/11 CBC w/ auto diff Alan # (ANC) 10*3/u L 1.78 5.38 3.34 FINAL Milvia Johnson [facility] [place] ([facility]), [address], [address] [place] [address] 07/11 CBC w/ auto diff LY # 10*3/u L 1.32 3.57 0.98 Low FINAL Milvia Johnson [facility] [place] ([facility]), [address], [address] [place] [address] 07/11 CBC w/ auto diff MO # 10*3/u L 0.3 0.82 0.41 FINAL Milvia Johnson [facility] [place] ([facility]), [address], [address] [place] [address] 07/11 CBC w/ auto diff EO # 10*3/u lL 0.04 0.54 0.24 FINAL Milvia Johnson [facility] [place] ([facility]), [address], [address] [place] [address] 07/11 CBC w/ auto diff BA # 10*3/u L 0.01 0.08 0.03 FINAL Milvia Johnson [facility] ([facility]), [address], [address] [place] [address] 07/11 CBC w/ auto diff Alan % % 34.0 67.9 66.8 FINAL Milvia Johnson [facility] [place] (T), [address], [address] [place] [address] 07/11 CBC w/ auto diff LY % % 21.8 53.1 19.6 Low FINAL [facility] ([facility]), [address], [address] [place] [address] 07/11 CBC w/ auto diff MO % % 5.3 12.2 8.2 FINAL Milvia Johnson [facility] ([facility]), [address], [address] [place] [address] 07/11 CBC w/ auto diff EO % % 0.8 7.0 4.8 FINAL [facility] ([facility]), [address], [address] [place] [address] 07/11 CBC w/ auto diff BA % % 0.2 1.2 0.6 FINAL [facility] ([facility]), [address], [address] [place] [address] 07/11 CBC w/ auto diff RBC 10*6/u L 4.63 6.08 3.97 Low FINAL [facility] ([facility]), [address], [address] [place] [address] 07/11 CBC w/ auto diff HGB g/dL 13.7 17.5 11.9 Low FINAL [facility] ([facility]), [address], [address] [place] [address] 07/11 CBC w/ auto diff HCT % 40.1 51.0 36.6 Low FINAL [facility] ([facility]), [address], [address] [place] [address] 07/11 CBC w/ auto diff MCV fL 79.0 92.2 92.2 FINAL [facility] ([facility]), [address], [address] [place] [address] 07/11 CBC w/ auto diff MCH pg 25.7 32.2 30.0 FINAL [facility] ([facility]), [address], [address] [place] [address] 07/11 CBC w/ auto diff MCHC g/dL 32.3 36.5 32.5 FINAL [facility] ([facility]), [address], [address] [place] [address] 07/11 CBC w/ auto diff RDW-C V, % % 11.6 14.4 13.6 FINAL [facility] ([facility]), [address], [address] [facility] [address] 07/11 CBC w/ auto diff PLT 10*3/u L 163.0 337.0 180 FINAL [facility] ([facility]), [address], [address] [facility] [address] 07/11 PSA, total ng/mL < 0.04 FINAL Milvia [facility] [place] [facility] ([facility]), [address] [place] [address] 10/02 CMP - Core Lab Sodiu m mmol/L 136.0 145.0 140 FINAL Shayne [facility] ([facility]), [address] [place] [address] 10/02 CMP - Core Lab Potas sium mmol/L 3.4 5.1 4.3 FINAL [facility] ([facility]), [address] [place] [address] [place] [address] 10/02 CMP - Core Lab Chlor naif mmol/L 98.0 107.0 105 FINAL [facility] ([facility]), [address] [place] [address] [place] [address] 10/02 CMP - Core Lab CO2 mmol/L 20.0 31.0 25.1 FINAL [facility] ([facility]), [address] [place] [address] [place] [address] 10/02 CMP - Core Lab Anion gap, mmol/ L mmol/L 4.0 15.0 9.9 FINAL [facility] [place] ([facility]), [address] [place] [address] [place] [address] 10/02 CMP - Core Lab BUN mg/dL 9.0 23.0 29 High FINAL [facility] ([facility]), [address] [place] [address] [place] [address] 10/02 CMP - Core Lab Creat inine mg/dL 0.73 1.18 1.07 FINAL [facility] ([facility]), [address] [place] [address]66 10/02 CMP - Core Lab BUN/C reati nine ratio 0.0 25.0 27.1 High FINAL [facility] ([facility]), [address] [place] [address] 79293 10/02 CMP - Core Lab eGFR, mL/mi n/1.7 3 mL/min /1.73m >60.0 FINAL [facility] ([facility]), [address] [place] [address] 10/02 CMP - Core Lab Gluco se mg/dL 74.0 106.0 93 FINAL [facility] ([facility]), [address] [place] [address] 10/02 CMP - Core Lab Calci um mg/dL 8.7 10.6 9.9 FINAL [facility] ([facility]), [address] [place] [address]84 10/02 CMP - Core Lab Album in g/dL 3.4 5.0 4.1 FINAL [facility] ([facility]), [address] [place] [address] 10/02 CMP - Core Lab Total prote in g/dL 5.7 8.2 6.6 FINAL [facility] ([facility]), [address] [place] [address] [place] [address] 10/02 CMP - Core Lab A/G ratio 1.0 2.0 1.6 FINAL [facility] ([facility]), [address] [place] [address] [place] [address] 10/02 CMP - Core Lab Alkal ine phosp hatas e U/L 46.0 116.0 39 Low FINAL [facility] ([facility]), [address] [place] [address] [place] [address] 10/02 CMP - Core Lab ALT/S GPT U/L 10.0 49.0 22 FINAL [facility] ([facility]), [address] [place] [address] [place] [address] 10/02 CMP - Core Lab AST/S GOT U/L 0.0 34.0 22 FINAL [facility] ([facility]), [address] [facility] [address] 10/02 CMP - Core Lab Bilir ubin, total mg/dL 0.3 1.2 0.4 FINAL [facility] [place] ([facility]), [address] [facility] [address] 10/02 PSA, total ng/mL < 0.04 FINAL [facility] ([facility]), [address] [facility] [address] 10/02 CBC w/ auto diff WBC 10*3/u L 4.2 9.1 4.8 FINAL [facility] (T), [address], [address] [place] [address] 10/02 CBC w/ auto diff Alan # (ANC) 10*3/u L 1.78 5.38 3.21 FINAL [facility] (T), [address], [address] [place] [id number] 10/02 CBC w/ auto diff LY # 10*3/u L 1.32 3.57 0.78 Low FINAL [facility] (T), [address] [address] [facility] [address] 10/02 CBC w/ auto diff MO # 10*3/u L 0.3 0.82 0.54 FINAL [facility] (T), [address], [address] [facility] [address] 10/02 CBC w/ auto diff EO # 10*3/u lL 0.04 0.54 0.27 FINAL [facility] (T), [address], [address] [facility] [address] 10/02 CBC w/ auto diff BA # 10*3/u L 0.01 0.08 0.02 FINAL [facility] (T), [address], [address] [facility] [address] 10/02 CBC w/ auto diff Alan % % 34.0 67.9 66.6 FINAL [facility] ([facility]), [address], [address] [place] [address] 10/02 CBC w/ auto diff LY % % 21.8 53.1 16.2 Low FINAL [facility] ([facility]), [address], [address] [place] [address] 10/02 CBC w/ auto diff MO % % 5.3 12.2 11.2 FINAL [facility] ([facility]), [address], [address] [place] [address] 10/02 CBC w/ auto diff EO % % 0.8 7.0 5.6 FINAL [facility] ([facility]), [address], [address] [place] [address] 10/02 CBC w/ auto diff BA % % 0.2 1.2 0.4 FINAL [facility] ([facility]), [address], [address] [place] [address] 10/02 CBC w/ auto diff RBC 10*6/u L 4.63 6.08 3.84 Low FINAL [facility] ([facility]), [address], [address] [place] [address] 10/02 CBC w/ auto diff HGB g/dL 13.7 17.5 11.4 Low FINAL [facility] ([facility]), [address], [address] [place] [address] 10/02 CBC w/ auto diff HCT % 40.1 51.0 34.7 Low FINAL [facility] ([facility]), [address], [address] [place] [address] 10/02 CBC w/ auto diff MCV fL 79.0 92.2 90.4 FINAL [facility] ([facility]), [address], [address] [place] [address] 10/02 CBC w/ auto diff MCH pg 25.7 32.2 29.7 FINAL [facility] ([facility]), [address], [address] [place] [address] 10/02 CBC w/ auto diff MCHC g/dL 32.3 36.5 32.9 FINAL [facility] ([facility]), [address] [facility] [address], [address] [facility] [address] 10/02 CBC w/ auto diff RDW-C V, % % 11.6 14.4 13.7 FINAL [facility] ([facility]), [address] [facility] [address], [address] [facility] [address] 10/02 CBC w/ auto diff PLT 10*3/u L 163.0 337.0 174 FINAL [facility] ([facility]), [address] [facility] [address], [address] [facility] [address] Medications Date Name Route Dose Frequency Instructions Start Date End Date Status Venlafaxine Oral 24 hr Cap activ e Valsartan Oral ac tive Amlodipine Oral once a day active Fenofibrate Oral 145.0 active Butalbital-Cod eine-Acetamino phen-Caffeine Oral 50 mg-30 mg-325 mg-40 mg orally 2.0 every 4 hours prn pain; do not exceed 6 caps per day active Clopidogrel Oral active Atorvastatin Oral once a day active 2024 1 ML leuprolide acetate 3.75 MG/ML Prefilled Syringe intramuscularly 22.5 mg every 3 months 2024 active 2023 1 ML leuprolide acetate 3.75 MG/ML Prefilled Syringe intramuscularly 22.5 mg every 3 months 2023 active Problems Diagnosis Status Date of Diagnosis Resolution Date Essential hypertension (disorder) Active Anemia Active Headache Active Depression Active Secondary malignant neoplasm of bone (disorder) Active 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 situ Active Stool contents abnormal Active Insomnia Active Vital Signs Date Type Value 10/08/2020 BSA 1.92 10/08/2020 BMI 30.79 10/08/2020 Height 64.00 10/08/2020 Weight 179.40 10/08/2020 Respiratory Rate 12.00 10/08/2020 Intravascular Systolic 128 10/08/2020 Intravascular Diastolic 82 10/08/2020 Body Temperature 98.20 10/08/2020 Heart Beat 84.00 10/08/2020 Pain Scale 0.00 01/07/2021 BMI 30.28 01/07/2021 Weight 176.40 01/07/2021 Height 64.00 01/07/2021 Pain Scale 0.00 01/07/2021 Intravascular Systolic 116 01/07/2021 Intravascular Diastolic 77 01/07/2021 Oxygen Saturation 98.00 01/07/2021 Respiratory Rate 15.00 01/07/2021 Heart Beat 70.00 01/07/2021 BSA 1.90 01/07/2021 Body Temperature 97.90 04/08/2021 Respiratory Rate 16.00 04/08/2021 Heart Beat 72.00 04/08/2021 Body Temperature 98.40 04/08/2021 Intravascular Systolic 130 04/08/2021 Intravascular Diastolic 78 04/08/2021 BSA 1.93 04/08/2021 BMI 31.17 04/08/2021 Height 64.00 04/08/2021 Weight 181.60 04/08/2021 Pain Scale 6.00 07/06/2021 Body Temperature 98.40 07/06/2021 Heart Beat 72.00 07/06/2021 BSA 1.92 07/06/2021 BMI 30.83 07/06/2021 Height 64.00 07/06/2021 Weight 179.60 07/06/2021 Pain Scale 7.00 07/06/2021 Intravascular Systolic 122 07/06/2021 Intravascular Diastolic 82 07/06/2021 Respiratory Rate 18.00 10/06/2021 Body Temperature 98.20 10/06/2021 Intravascular Systolic 140 10/06/2021 Intravascular Diastolic 90 10/06/2021 Pain Scale 8.00 10/06/2021 Weight 178.80 10/06/2021 BSA 1.91 10/06/2021 BMI 30.69 10/06/2021 Respiratory Rate 18.00 10/06/2021 Heart Beat 78.00 10/06/2021 Height 64.00 01/05/2022 Body Temperature 98.20 01/05/2022 Heart Beat 79.00 01/05/2022 Respiratory Rate 18.00 01/05/2022 Oxygen Saturation 94.00 01/05/2022 Intravascular Systolic 143 01/05/2022 Intravascular Diastolic 69 01/05/2022 Pain Scale 0.00 01/05/2022 Weight 179.80 01/05/2022 Height 64.00 01/05/2022 BMI 30.86 01/05/2022 BSA 1.92 04/07/2022 Height 64.00 04/07/2022 Weight 183.80 04/07/2022 Pain Scale 0.00 04/07/2022 BSA 1.94 04/07/2022 BMI 31.55 04/07/2022 Oxygen Saturation 97.00 04/07/2022 Respiratory Rate 16.00 04/07/2022 Heart Beat 90.00 04/07/2022 Body Temperature 97.80 04/07/2022 Intravascular Systolic 125 04/07/2022 Intravascular Diastolic 78 07/05/2022 Body Temperature 97.90 07/05/2022 Heart Beat 75.00 07/05/2022 Respiratory Rate 16.00 07/05/2022 Intravascular Systolic 158 07/05/2022 Intravascular Diastolic 83 07/05/2022 Pain Scale 0.00 07/05/2022 Weight 189.80 07/05/2022 Height 64.00 07/05/2022 BMI 32.58 07/05/2022 BSA 1.97 07/07/2022 BSA 1.96 07/07/2022 BMI 32.27 07/07/2022 Height 64.00 07/07/2022 Weight 188.00 07/07/2022 Intravascular Systolic 150 07/07/2022 Intravascular Diastolic 80 07/07/2022 Respiratory Rate 16.00 07/07/2022 Heart Beat 84.00 07/07/2022 Body Temperature 98.10 07/07/2022 Pain Scale 0.00 10/10/2022 BSA 1.92 10/10/2022 Body Temperature 98.10 10/10/2022 Heart Beat 60.00 10/10/2022 Respiratory Rate 16.00 10/10/2022 Intravascular Systolic 130 10/10/2022 Intravascular Diastolic 70 10/10/2022 Pain Scale 0.00 10/10/2022 Weight 180.80 10/10/2022 Height 64.00 10/10/2022 BMI 31.03 01/10/2023 BSA 1.91 01/10/2023 Body Temperature 98.00 01/10/2023 Heart Beat 76.00 01/10/2023 Respiratory Rate 12.00 01/10/2023 BMI 30.48 01/10/2023 Pain Scale 0.00 01/10/2023 Weight 177.60 01/10/2023 Height 64.00 01/10/2023 Intravascular Systolic 122 01/10/2023 Intravascular Diastolic 70 04/12/2023 Body Temperature 98.30 04/12/2023 Heart Beat 71.00 04/12/2023 Respiratory Rate 16.00 04/12/2023 Intravascular Systolic 129 04/12/2023 Intravascular Diastolic 78 04/12/2023 BSA 1.90 04/12/2023 Weight 175.40 04/12/2023 Height 64.00 04/12/2023 BMI 30.11 04/12/2023 Pain Scale 0.00 07/11/2023 Oxygen Saturation 96.00 07/11/2023 Intravascular Systolic 136 07/11/2023 Intravascular Diastolic 75 07/11/2023 Heart Beat 82.00 07/11/2023 Body Temperature 97.90 07/11/2023 BSA 1.90 07/11/2023 BMI 30.38 07/11/2023 Height 64.00 07/11/2023 Weight 177.00 07/11/2023 Pain Scale 0.00 07/11/2023 Respiratory Rate 16.00 10/11/2023 Heart Beat 70.00 10/11/2023 Respiratory Rate 16.00 10/11/2023 Intravascular Systolic 154 10/11/2023 Intravascular Diastolic 71 10/11/2023 Pain Scale 2.00 10/11/2023 Body Temperature 97.50 10/11/2023 Height 64.00 10/11/2023 BMI 31.41 10/11/2023 BSA 1.94 10/11/2023 Weight 183.00 01/11/2024 Body Temperature 98.00 01/11/2024 BSA 1.89 01/11/2024 BMI 29.80 01/11/2024 Height 64.00 01/11/2024 Weight 173.60 01/11/2024 Pain Scale 0.00 01/11/2024 Intravascular Systolic 140 01/11/2024 Intravascular Diastolic 82 01/11/2024 Heart Beat 76.00 01/11/2024 Respiratory Rate 16.00 04/11/2024 Intravascular Systolic 117 04/11/2024 Intravascular Diastolic 70 04/11/2024 Respiratory Rate 13.00 04/11/2024 Heart Beat 66.00 04/11/2024 Body Temperature 98.20 04/11/2024 BSA 1.89 04/11/2024 Weight 175.20 04/11/2024 Height 64.00 04/11/2024 BMI 30.07 04/11/2024 Pain Scale 0.00 07/11/2024 Weight 181.00 07/11/2024 Intravascular Systolic 139 07/11/2024 Intravascular Diastolic 72 07/11/2024 Heart Beat 71.00 07/11/2024 Body Temperature 97.80 07/11/2024 BMI 31.07 07/11/2024 Height 64.00 07/11/2024 Pain Scale 0.00 07/11/2024 Respiratory Rate 14.00 07/11/2024 BSA 1.93 10/02/2024 Body Temperature 97.80 10/02/2024 Heart Beat 71.00 10/02/2024 Respiratory Rate 16.00 10/02/2024 Intravascular Systolic 110 10/02/2024 Intravascular Diastolic 69 10/02/2024 BSA 1.91 10/02/2024 Height 64.00 10/02/2024 Weight 179.00 10/02/2024 Pain Scale 0.00 10/02/2024 BMI 30.72 Notes Section * Nurse Note for: 02-OCT-24 [facility] Nurse Note Print Location: Unknown Date/Time Printed: 10/11/2024 10:32 ([facility]) Patient: RICHI CRUZ Sex: Male : 1950 Date of Service: 10/02/2024 Allergies : No Known Allergies Vital Signs : Time: 09:51. Weight: 179 lb (81.19 kg). Height: 64 in (162.56 cm). BMI: 30.72 (kg/m2) . BSA: 1.91 (m2) . Temperature: 97.8 F (36.56 C). Pulse: 71 (/min) . Respirations: 16 (/min) . Blood pressure: 110/69 (mm Hg). Pain Scale: 0. Entered by Amy Vega MA 10/02/2024 09:52 Incident To Details : Incident to physician is present and immediately available to furnish assistance and provide supervision throughout the treatment. Entered By Rachel Ashley RN on 09:54 Patient Assessment : Positive results Assessment : Labs Verified: Yes, Alert, oriented with appropriate behavior. Negative results Assessment : Gait Changes. Denies Neuropathy , Pain -0-No pain, Fatigue , Anxiety/Depression , Fever, Chills or Night Sweats ,Signs of Infection , Skin Changes , Dizziness , Headaches , Nausea , Breathing Changes , Cough , Mouth Sores/Stomatitis/Mucositis , Changes in Appetite , Vomiting , Diarrhea , Constipation , Urinary Changes , Bleeding . Entered By Rachel Ashley RN on 10:18 Discharge Note : Comments-Therapy completed without adverse event, Discharged from clinic, Stable, Review side effects with patient, No new complaints, Self care instructions given, Teaching material given, Plan for next patient visit confirmed, Practice contact information given, Patient instructed to call office with any questions or problems, Accompanied By-Self, Discharge-Ambulatory, Discharge Time-510:30 Entered By Rachel Ashley RN on 10:18 Medication Administration : Incident to: Shayne Castellanos MD Leuprolide D1 Q3M Hormone Therapy Leuprolide IM, 22.5 mg intramuscularly every 3 months, Allow Substitution GIVEN: 22.5 mg Pharmacy plan: Dispense/Waste: 22.5/0 mg Amount in mL: 1.5 Pharmacy dispense: [facility]: [id number] Dispense/Waste: 22.5/0 mg Given Dose/Discard: 22.5/0 mg Admin Details: Injection Location: Left-Dorsogluteal Time: 10:26 Double Checked By: Rachel Ashley RN on 10/02/2024 10:25 and Aziza Gay RN on 10/02/2024 10:25 * Nurse Note for: 11-JUL-24 [facility] Nurse Note Print Location: Unknown Date/Time Printed: 10/11/2024 10:32 ([facility]) Patient: RICHI CRUZ Sex: Male : 1950 Date of Service: 07/11/2024 Allergies : No Known Allergies Vital Signs : Time: 09:36. Weight: 181 lb (82.10 kg). BMI: 31.07 (kg/m2) . BSA: 1.93 (m2) . Temperature: 97.8 F (36.56 C). Pulse: 71 (/min) . Blood pressure: 139/72 (mm Hg). Entered by Amy Vega MA 07/11/2024 09:43 Time: 09:36. Height: 64 in (162.56 cm). Respirations: 14 (/min) . Pain Scale: 0. Entered by Armond CRUMP 07/11/2024 09:38 Incident To Details : Incident to physician is present and immediately available to furnish assistance and provide supervision throughout the treatment. Entered By Tiffanie Draper RN on 10:17 Patient Assessment : Positive results Assessment : Labs Verified: Yes, Alert, oriented with appropriate behavior. Negative results Assessment : Gait Changes. Denies Neuropathy , Pain -0-No pain, Fatigue , Anxiety/Depression , Fever, Chills or Night Sweats ,Signs of Infection , Skin Changes , Dizziness , Headaches , Nausea , Breathing Changes , Cough , Mouth Sores/Stomatitis/Mucositis , Changes in Appetite , Vomiting , Diarrhea , Constipation , Urinary Changes , Bleeding . Entered By Tiffanie Draper RN on 10:41 Discharge Note : Comments-Therapy completed without adverse event, Accompanied By-Self, Discharge-Ambulatory, Discharge Time-07/11/2024 10:20 Entered By Tiffanie Draper RN on 10:41 Medication Administration : Incident to: Shayne Castellanos MD Leuprolide D1 Q3M Hormone Therapy Leuprolide IM, 22.5 mg intramuscularly every 3 months, Allow Substitution GIVEN: 22.5 mg Pharmacy plan: Dispense/Waste: 22.5/0 mg Given Dose/Discard: 22.5/0 mg Admin Details: Injection Location: Right-Dorsogluteal Time: 10:15 Double Checked By: Jennifer Sparks RN on 07/11/2024 10:13 and Tiffanie Draper RN on 07/11/2024 10:13 * Nurse Note for: 11-APR-24 [facility] Nurse Note Print Location: Unknown Date/Time Printed: 10/11/2024 10:32 ([facility]) Patient: RICHI CRUZ Sex: Male : 1950 Date of Service: 04/11/2024 Allergies : No Known Allergies Vital Signs : Time: 09:26. Weight: 175.2 lb (79.47 kg). Height: 64 in (162.56 cm). BMI: 30.07 (kg/m2) . BSA: 1.89(m2) . Temperature: 98.2 F (36.78 C). Pulse: 66 (/min) . Respirations: 13 (/min) . Blood pressure: 117/70 (mm Hg). Pain Scale: 0. Entered by Sapphire Guerra MA 04/11/2024 09:27 Incident To Details : Incident to physician is present and immediately available to furnish assistance and provide supervision throughout the treatment. Entered By Edie Blanco RN on 10:34 Patient Assessment : Positive results Assessment : Alert, oriented with appropriate behavior. Negative results Assessment : Labs Verified: No, Gait Changes. Denies Neuropathy , Pain -0-No pain, Fatigue , Anxiety/Depression , Fever, Chills or Night Sweats ,Signs of Infection , Skin Changes , Dizziness , Headaches , Nausea , Breathing Changes , Cough , Mouth Sores/Stomatitis/Mucositis , Changes in Appetite , Vomiting , Diarrhea , Constipation , Urinary Changes , Bleeding . Entered By Edie Blanco RN on 10:35 Medication Administration : Incident to: Shayne Castellanos MD Leuprolide D1 Q3M Hormone Therapy Leuprolide IM, 22.5 mg intramuscularly every 3 months, Allow Substitution GIVEN: 22.5 mg Pharmacy plan: Dispense/Waste: 22.5/0 mg Pharmacy dispense: [facility]: [id number] Dispense/Waste: 22.5/0 mg Given Dose/Discard: 22.5/0 mg Admin Details: Injection Location: Right-Dorsogluteal, Comments: x 1 Time: 10:15 Double Checked By: Aislinn Blair RN on 04/11/2024 10:06 and Edie Blanco RN on 04/11/2024 10:06 * Nurse Note for: 11-JAN-24 [facility] Nurse Note Print Location: Unknown Date/Time Printed: 10/11/2024 10:32 ([facility]) Patient: RICHI CRUZ Sex: Male : 1950 Date of Service: 01/11/2024 Allergies : No Known Allergies Vital Signs : Time: 09:00. Pain Scale: 0. Entered by Edie Blanco RN 01/11/2024 10:05 Time: 09:00. Weight: 173.6 lb (78.74 kg). Height: 64 in (162.56 cm). BMI: 29.8 (kg/m2) . BSA: 1.89 (m2) . Temperature: 98 F (36.67 C). Pulse: 76 (/min) . Respirations: 16 (/min) . Blood pressure: 140/82 (mm Hg). Pain Scale: 8. Entered by Sabrina Garces MA 01/11/2024 09:02 Incident To Details : Incident to physician is present and immediately available to furnish assistance and provide supervision throughout the treatment. Entered By Edie Blanco RN on 10:05 Patient Assessment : Positive results Assessment : Alert, oriented with appropriate behavior. Negative results Assessment : Labs Verified: No, Gait Changes. Denies Neuropathy , Pain -0-No pain, Fatigue , Anxiety/Depression , Fever, Chills or Night Sweats ,Signs of Infection , Skin Changes , Dizziness , Headaches , Nausea , Breathing Changes , Cough , Mouth Sores/Stomatitis/Mucositis , Changes in Appetite , Vomiting , Diarrhea , Constipation , Urinary Changes , Bleeding . Entered By Edie Blanco RN on 10:05 Discharge Note : Discharge-Ambulatory, Discharge Time-01/11/2024 10:05 Entered By Edie Blanco RN on 10:05 Medication Administration : Incident to: Shayne Castellanos MD Leuprolide D1 Q3M Hormone Therapy Leuprolide IM, 22.5 mg intramuscularly every 3 months, Allow Substitution GIVEN: 22.5 mg Pharmacy plan: Dispense/Waste: 22.5/0 mg Pharmacy dispense: [facility]: [id number] Dispense/Waste: 22.5/0 mg Given Dose/Discard: 22.5/0 mg Admin Details: Injection Location: Right-Dorsogluteal, Comments: x 1 Time: 10:03 Double Checked By: Edie Blanco RN on 01/11/2024 10:03 and Trang Dukes RN on 01/11/2024 10:03 * Nurse Note for: 11-OCT-23 [facility] Nurse Note Print Location: Unknown Date/Time Printed: 10/11/2024 10:32 ([facility]) Patient: RICHI CRUZ Sex: Male : 1950 Date of Service: 10/11/2023 Allergies : No Known Allergies Vital Signs : Time: 10:20. Weight: 183 lb (83.01 kg). Height: 64 in (162.56 cm). BMI: 31.41 (kg/m2) . BSA: 1.94 (m2) . Temperature: 97.5 F (36.39 C). Pulse: 70 (/min) . Respirations: 16 (/min) . Blood pressure: 154/71 (mm Hg). Pain Scale: 2. Entered by Mario Keller 10/11/2023 10:21 Incident To Details : Incident to physician is present and immediately available to furnish assistance and provide supervision throughout the treatment. Entered By Aziza Gay RN on 14:25 Patient Assessment : Positive results Assessment : Labs Verified: Yes, Alert, oriented with appropriate behavior. Complains of Pain-2. Negative results Assessment : Gait Changes. Denies Neuropathy , Fatigue , Anxiety/Depression , Fever, Chills or Night Sweats , Signs of Infection , Skin Changes , Dizziness , Headaches , Nausea , Breathing Changes , Cough , Mouth Sores/Stomatitis/Mucositis , Changes in Appetite , Vomiting , Diarrhea , Constipation , Urinary Changes , Bleeding . Entered By Aziza Gay RN on 14:25 Medication Administration : Incident to: Shayne Castellanos MD Leuprolide D1 Q3M Hormone Therapy Leuprolide IM, 22.5 mg intramuscularly every 3 months, Allow Substitution GIVEN: 22.5 mg Pharmacy plan: Dispense/Waste: 22.5/0 mg Pharmacy dispense: [facility]: [id number] Dispense/Waste: 22.5/0 mg Given Dose/Discard: 22.5/0 mg Admin Details: Injection Location: Right-Dorsogluteal, Comments: Injection x 1. Time: 11:30 Double Checked By: Aziza Gay RN on 10/11/2023 11:28 and Emily Lujan RN on 10/11/2023 11:30 * Nurse Note for: 11-JUL-23 [facility] Nurse Note Print Location: Unknown Date/Time Printed: 10/11/2024 10:32 ([facility]) Patient: RICHI CRUZ Sex: Male : 1950 Date of Service: 07/11/2023 Allergies : No Known Allergies Vital Signs : Time: 09:12. Temperature: 97.9 F (36.61 C). Pulse: 82 (/min) . Blood pressure: 136/75 (mm Hg). O2 Saturation: 96 (%) . Entered by Amy Vega MA 07/11/2023 09:19 Time: 09:12. Weight: 177 lb (80.29 kg). Height: 64 in (162.56 cm). BMI: 30.38 (kg/m2) . BSA: 1.9 (m2) . Respirations: 16 (/min) . Pain Scale: 0. Entered by Amy Vega MA 07/11/2023 09:17 Incident To Details : Incident to physician is present and immediately available to furnish assistance and provide supervision throughout the treatment. Entered By Edie Blanco RN on 11:00 Patient Assessment : Positive results Assessment : Alert, oriented with appropriate behavior. Negative results Assessment : Labs Verified: No, Gait Changes. Denies Neuropathy , Pain -0-No pain, Fatigue , Anxiety/Depression , Fever, Chills or Night Sweats ,Signs of Infection , Skin Changes , Dizziness , Headaches , Nausea , Breathing Changes , Cough , Mouth Sores/Stomatitis/Mucositis , Changes in Appetite , Vomiting , Diarrhea , Constipation , Urinary Changes , Bleeding . Entered By Edie Blanco RN on 11:00 Medication Administration : Incident to: Shayne Castellanos MD Leuprolide D1 Q3M Hormone Therapy Leuprolide IM, 22.5 mg intramuscularly every 3 months, Allow Substitution GIVEN: 22.5 mg Pharmacy plan: Dispense/Waste: 22.5/0 mg Pharmacy dispense: [facility]: [id number] Dispense/Waste: 22.5/0 mg Given Dose/Discard: 22.5/0 mg Admin Details: Injection Location: Right-Dorsogluteal Time: 10:20 Double Checked By: Trang Dukes RN on 07/11/2023 10:05 and Edie Blanco RN on 07/11/2023 11:01 * Nurse Note for: 12-APR-23 [facility] Nurse Note Print Location: Unknown Date/Time Printed: 10/11/2024 10:32 ([facility]) Patient: RICHI CRUZ Sex: Male : 1950 Date of Service: 04/12/2023 Allergies : No Known Allergies Vital Signs : Time: 08:14. Weight: 175.4 lb (79.56 kg). Height: 64 in (162.56 cm). BMI: 30.11 (kg/m2) . BSA: 1.9 (m2) . Temperature: 98.3 F (36.83 C) oral. Pulse: 71 (/min) radial sitting. Respirations: 16 (/min) . Blood pressure: 129/78 (mm Hg) right arm Regular. Pain Scale: 0. Entered by Lashell Jurado MA 04/12/2023 08:15 Incident To Details : Incident to physician is present and immediately available to furnish assistance and provide supervision throughout the treatment. Entered By Lily Raphael RN on :28 Patient Assessment : Positive results Assessment : Labs Verified: Yes, Alert, oriented with appropriate behavior. Negative results Assessment : Gait Changes. Denies Neuropathy , Pain -0-No pain, Fatigue , Anxiety/Depression , Fever, Chills or Night Sweats ,Signs of Infection , Skin Changes , Dizziness , Headaches , Nausea , Breathing Changes , Cough , Mouth Sores/Stomatitis/Mucositis , Changes in Appetite , Vomiting , Diarrhea , Constipation , Urinary Changes , Bleeding . Entered By Lily Raphael RN on : Medication Administration : Incident to: Shayne Castellanos MD Leuprolide D1 Q3M Hormone Therapy Leuprolide IM, 22.5 mg intramuscularly every 3 months, Allow Substitution GIVEN: 22.5 mg Pharmacy plan: Dispense/Waste: 22.5/0 mg Pharmacy dispense: [facility]: [id number] Dispense/Waste: 22.5/0 mg Given Dose/Discard: 22.5/0 mg Admin Details: Injection Location: Right-Dorsogluteal Time: 09:15 Double Checked By: Lily Raphael RN on 04/12/2023 09:27 and Emily Lujan RN on 04/12/2023 09:33 * Nurse Note for: 10-JAN-23 [facility] Nurse Note Print Location: Unknown Date/Time Printed: 10/11/2024 10:32 ([facility]) Patient: RICHI CRUZ Sex: Male : 1950 Date of Service: 01/10/2023 Allergies : No Known Allergies Vital Signs : Time: 10:02. Weight: 177.6 lb (80.56 kg). Height: 64 in (162.56 cm). BMI: 30.48 (kg/m2) . BSA: 1.91(m2) . Temperature: 98 F (36.67 C). Pulse: 76 (/min) . Respirations: 12 (/min) . Blood pressure: 122/70 (mm Hg). Pain Scale: 0. Entered by Puja Andujar MA 01/10/2023 10:04 Incident To Details : Incident to physician is present and immediately available to furnish assistance and provide supervision throughout the treatment. Entered By Marlen Lee on : Patient Assessment : Positive results Assessment : Labs Verified: Yes, Alert, oriented with appropriate behavior. Negative results Assessment : Gait Changes. Denies Neuropathy , Pain -0-No pain, Fatigue , Anxiety/Depression , Fever, Chills or Night Sweats ,Signs of Infection , Skin Changes , Dizziness , Headaches , Nausea , Breathing Changes , Cough , Mouth Sores/Stomatitis/Mucositis , Changes in Appetite , Vomiting , Diarrhea , Constipation , Urinary Changes , Bleeding . Entered By Marlen Lee on : Medication Administration : Incident to: Shayne Castellanos MD Leuprolide D1 Q3M Hormone Therapy Leuprolide IM, 22.5 mg intramuscularly every 3 months, Allow Substitution GIVEN: 22.5 mg Pharmacy plan: Dispense/Waste: 22.5/0 mg Pharmacy dispense: [facility]: [id number] Dispense/Waste: 22.5/0 mg Given Dose/Discard: 22.5/0 mg Admin Details: Injection Location: Right-Dorsogluteal, Comments: injection x1 Time: 11:14 Double Checked By: Denisse Harris RN on 01/10/2023 11:11 and Marlen Lee on 01/10/2023 11:18 * Nurse Note for: 10-OCT-22 [facility] Nurse Note Print Location: Unknown Date/Time Printed: 10/11/2024 10:32 ([facility]) Patient: RICHI CRUZ Sex: Male : 1950 Date of Service: 10/10/2022 Allergies : No Known Allergies Vital Signs : Time: 09:20. Weight: 180.8 lb (82.01 kg). Height: 64 in (162.56 cm). BMI: 31.03 (kg/m2) . BSA: 1.92(m2) . Temperature: 98.1 F (36.72 C) oral. Pulse: 60 (/min) radial sitting. Respirations: 16 (/min). Blood pressure: 130/70 (mm Hg) left arm Regular. Pain Scale: 0. Entered by Sabrina Garces MA 10/10/2022 09:22 Incident To Details : Incident to physician is present and immediately available to furnish assistance and provide supervision throughout the treatment. Entered By Edie Blanco RN on :23 Patient Assessment : Positive results Assessment : Alert, oriented with appropriate behavior. Negative results Assessment : Labs Verified: No, Gait Changes. Denies Neuropathy , Pain -0-No pain, Fatigue , Anxiety/Depression , Fever, Chills or Night Sweats ,Signs of Infection , Skin Changes , Dizziness , Headaches , Nausea , Breathing Changes , Cough , Mouth Sores/Stomatitis/Mucositis , Changes in Appetite , Vomiting , Diarrhea , Constipation , Urinary Changes , Bleeding . Entered By Edie Blanco RN on : Medication Administration : Incident to: Catrachito Boss MD Leuprolide D1 Q3M Hormone Therapy Leuprolide IM, 22.5 mg intramuscularly every 3 months, Allow Substitution GIVEN: 22.5 mg Pharmacy plan: Dispense/Waste: 22.5/0 mg Pharmacy dispense: [facility]: [id number] Dispense/Waste: 22.5/0 mg Given Dose/Discard: 22.5/0 mg Admin Details: Injection Location: Right-Dorsogluteal, Comments: x 1 IM Time: 10:23 Checked By: Edie Blanco RN on 10/10/2022 10:25 * Nurse Note for: 07-JUL-22 [facility] Nurse Note Print Location: Unknown Date/Time Printed: 10/11/2024 10:32 ([facility]) Patient: RICHI CRUZ Sex: Male : 1950 Date of Service: 07/07/2022 Allergies : No Known Allergies Vital Signs : Time: 10:07. Weight: 188 lb (85.28 kg). Height: 64 in (162.56 cm). BMI: 32.27 (kg/m2) . BSA: 1.96 (m2) . Temperature: 98.1 F (36.72 C) oral. Pulse: 84 (/min) radial sitting. Respirations: 16 (/min) .Blood pressure: 150/80 (mm Hg) right arm Regular. Pain Scale: 0. Entered by Mario Keller 07/07/2022 10:09 Incident To Details : Incident to physician is present and immediately available to furnish assistance and provide supervision throughout the treatment. Entered By Aziza Gay RN on 12:43 Patient Assessment : Positive results Assessment : Labs Verified: Yes, Alert, oriented with appropriate behavior. Negative results Assessment : Gait Changes. Denies Neuropathy , Pain -0-No pain, Fatigue , Anxiety/Depression , Fever, Chills or Night Sweats ,Signs of Infection , Skin Changes , Dizziness , Headaches , Nausea , Breathing Changes , Cough , Mouth Sores/Stomatitis/Mucositis , Changes in Appetite , Vomiting , Diarrhea , Constipation , Urinary Changes , Bleeding . Entered By Aziza Gay RN on 12:43 Medication Administration : Incident to: Shayne Castellanos MD Leuprolide D1 Q3M Hormone Therapy Leuprolide IM, 22.5 mg intramuscularly every 3 months, Allow Substitution GIVEN: 22.5 mg Pharmacy plan: Dispense/Waste: 22.5/0 mg Pharmacy dispense: [facility]: [id number] Dispense/Waste: 22.5/0 mg Given Dose/Discard: 22.5/0 mg Admin Details: Injection Location: Right-Dorsogluteal, Comments: Injection x 1. Time: 10:27 Double Checked By: Emily Lujan RN on 07/07/2022 10:49 and Aziza Gay RN on 07/07/2022 12:46 * Nurse Note for: 07-APR-22 [facility] Nurse Note Print Location: Unknown Date/Time Printed: 10/11/2024 10:32 ([facility]) Patient: RICHI CRUZ Sex: Male : 1950 Date of Service: 04/07/2022 Allergies : No Known Allergies Vital Signs : Time: 09:20. Weight: 183.8 lb (83.37 kg). Height: 64 in (162.56 cm). BMI: 31.55 (kg/m2) . BSA: 1.94(m2) . Temperature: 97.8 F (36.56 C). Pulse: 90 (/min) . Respirations: 16 (/min) . Blood pressure: 125/78 (mm Hg) right arm Regular. Pain Scale: 0. O2 Saturation: 97 (%) at rest. Entered by Puja Gilliam MA 04/07/2022 09:20 Incident To Details : Incident to physician is present and immediately available to furnish assistance and provide supervision throughout the treatment. Entered By Denisse Harris RN on 09:41 Patient Assessment : Positive results Assessment : Alert, oriented with appropriate behavior. Negative results Assessment : Labs Verified: No, Gait Changes. Denies Neuropathy , Pain -0-No pain, Fatigue , Anxiety/Depression , Fever, Chills or Night Sweats ,Signs of Infection , Skin Changes , Dizziness , Headaches , Nausea , Breathing Changes , Cough , Mouth Sores/Stomatitis/Mucositis , Changes in Appetite , Vomiting , Diarrhea , Constipation , Urinary Changes , Bleeding . Entered By Denisse Harris RN on :41 Medication Administration : Incident to: Shayne Castellanos MD Leuprolide D1 Q3M Hormone Therapy Leuprolide IM, 22.5 mg intramuscularly every 3 months, Allow Substitution GIVEN: 22.5 mg Pharmacy plan: Dispense/Waste: 22.5/0 mg Pharmacy dispense: [facility]: [id number] Dispense/Waste: 22.5/0 mg Given Dose/Discard: 22.5/0 mg Admin Details: Injection Location: Left-Dorsogluteal Time: 09:43 Double Checked By: Denisse Coleman RN on 04/07/2022 09:41 and Emily Lujan RN on 04/07/2022 09:49 * Nurse Note for: 05-JAN-22 [facility] Nurse Note Print Location: Unknown Date/Time Printed: 10/11/2024 10:32 ([facility]) Patient: RICHI CRUZ Sex: Male : 1950 Date of Service: 01/05/2022 Allergies : No Known Allergies Vital Signs : Time: 10:12. Pain Scale: 0. Entered by Edie Blanco RN 01/05/2022 15:07 Time: 10:12. Weight: 179.8 lb (81.56 kg). Height: 64 in (162.56 cm). BMI: 30.86 (kg/m2) . BSA: 1.92(m2) . Temperature: 98.2 F (36.78 C). Pulse: 79 (/min) . Respirations: 18 (/min) . Blood pressure: 143/69 (mm Hg) right arm Regular. Pain Scale: 7. O2 Saturation: 94 (%) at rest. Entered by Puja Gilliam MA 01/05/2022 10:17 Incident To Details : Incident to physician is present and immediately available to furnish assistance and provide supervision throughout the treatment. Entered By Edie Blanco RN on 15:07 Patient Assessment : Positive results Assessment : Labs Verified: Yes, Alert, oriented with appropriate behavior. Negative results Assessment : Gait Changes. Denies Neuropathy , Pain -0-No pain, Fatigue , Anxiety/Depression , Fever, Chills or Night Sweats ,Signs of Infection , Skin Changes , Dizziness , Headaches , Nausea , Breathing Changes , Cough , Mouth Sores/Stomatitis/Mucositis , Changes in Appetite , Vomiting , Diarrhea , Constipation , Urinary Changes , Bleeding . Entered By Edie Blanco RN on 15:07 Medication Administration : Incident to: Shayne Castellanos MD Leuprolide D1 Q3M Hormone Therapy Leuprolide IM, 22.5 mg intramuscularly every 3 months, Allow Substitution GIVEN: 22.5 mg Pharmacy plan: Dispense/Waste: 22.5/0 mg Pharmacy dispense: [facility]: [id number] Dispense/Waste: 22.5/0 mg Given Dose/Discard: 22.5/0 mg Admin Details: Injection Location: Right-Dorsogluteal, Comments: x 1 Time: 11:01 Double Checked By: Edie Blanco RN on 01/05/2022 15:07 and Nikole Ornelas RN on 01/05/2022 16:03 * Nurse Note for: 06-OCT-21 [facility] Nurse Note Print Location: Unknown Date/Time Printed: 10/11/2024 10:32 ([facility]) Patient: RICHI CRUZ Sex: Male : 1950 Date of Service: 10/06/2021 Allergies : No Known Allergies Vital Signs : Time: 10:26. Weight: 178.8 lb (81.10 kg). Height: 64 in (162.56 cm). BMI: 30.69 (kg/m2) . BSA: 1.91(m2) . Temperature: 98.2 F (36.78 C) oral. Pulse: 78 (/min) radial sitting. Respirations: 18 (/min). Blood pressure: 140/90 (mm Hg) right arm Regular. Pain Scale: 8. Entered by Ren FLORES 10/06/2021 10:28 Incident To Details : Incident to physician is present and immediately available to furnish assistance and provide supervision throughout the treatment. Entered By Emily Lujan RN on 13:15 Patient Assessment : Positive results Assessment : Labs Verified: Yes, Alert, oriented with appropriate behavior. Complains of Pain-8. Negative results Assessment : Gait Changes. Denies Neuropathy , Fatigue , Anxiety/Depression , Fever, Chills or Night Sweats , Signs of Infection , Skin Changes , Dizziness , Headaches , Nausea , Breathing Changes , Cough , Mouth Sores/Stomatitis/Mucositis , Changes in Appetite , Vomiting , Diarrhea , Constipation , Urinary Changes , Bleeding . Entered By Emily Lujan RN on 13:15 Medication Administration : Incident to: Shayne Castellanos MD Leuprolide D1 Q3M Hormone Therapy Leuprolide IM, 22.5 mg intramuscularly every 3 months, Allow Substitution GIVEN: 22.5 mg Pharmacy plan: Dispense/Waste: 22.5/0 mg Pharmacy dispense: [facility]: [id number] Dispense/Waste: 22.5/0 mg Given Dose/Discard: 22.5/0 mg Admin Details: Injection Location: Right-Dorsogluteal, Comments: x1 Time: 11:09 Double Checked By: Emily Lujan RN on 10/06/2021 13:17 and Isaura Hunter RN on 10/06/2021 13:18 * Nurse Note for: 06-JUL-21 [facility] Nurse Note Print Location: Unknown Date/Time Printed: 10/11/2024 10:32 ([facility]) Patient: RICHI CRUZ Sex: Male : 1950 Date of Service: 07/06/2021 Allergies : No Known Allergies Vital Signs : Time: 09:37. Weight: 179.6 lb (81.47 kg). Height: 64 in (162.56 cm). BMI: 30.83 (kg/m2) . BSA: 1.92(m2) . Temperature: 98.4 F (36.89 C). Pulse: 72 (/min) . Respirations: 18 (/min) . Blood pressure: 122/82 (mm Hg). Pain Scale: 7. Entered by Ava Carmen MA 07/06/2021 09:44 Patient Assessment : Positive results Assessment : Alert, oriented with appropriate behavior. Complains of Pain-7, Fatigue. Negative results Assessment : Labs Verified: No, Gait Changes. Denies Neuropathy , Anxiety/Depression , Fever, Chills or Night Sweats , Signs of Infection , Skin Changes , Dizziness , Headaches , Nausea , Breathing Changes , Cough , Mouth Sores/Stomatitis/Mucositis , Changes in Appetite , Vomiting , Diarrhea , Constipation , Urinary Changes , Bleeding . Entered By Isaura Hunter RN on 16:19 Medication Administration : Incident to: Shayne Castellanos MD Leuprolide D1 Q3M Hormone Therapy Leuprolide IM, 22.5 mg intramuscularly every 3 months, Allow Substitution GIVEN: 22.5 mg Pharmacy plan: Dispense/Waste: 22.5/0 mg Pharmacy dispense: [facility]: [id number] Dispense/Waste: 22.5/0 mg Given Dose/Discard: 22.5/0 mg Admin Details: Injection Location: Right-Dorsogluteal, Comments: 1 injection Time: 11:08 Checked By: Isaura Hunter RN on 07/06/2021 16:19 * Nurse Note for: 08-APR-21 [facility] Nurse Note Print Location: Unknown Date/Time Printed: 10/11/2024 10:32 ([facility]) Patient: RICHI CRUZ Sex: Male : 1950 Date of Service: 04/08/2021 Allergies : No Known Allergies Vital Signs : Time: 09:41. Weight: 181.6 lb (82.37 kg). Height: 64 in (162.56 cm). BMI: 31.17 (kg/m2) . BSA: 1.93(m2) . Temperature: 98.4 F (36.89 C). Pulse: 72 (/min) . Respirations: 16 (/min) . Blood pressure: 130/78 (mm Hg). Pain Scale: 6. Entered by Ava Carmen MA 04/08/2021 09:43 Patient Assessment : Positive results Assessment : Labs Verified: Yes, Alert, oriented with appropriate behavior. Complains of Pain-6. Negative results Assessment : Gait Changes. Denies Neuropathy , Fatigue , Anxiety/Depression , Fever, Chills or Night Sweats , Signs of Infection , Skin Changes , Dizziness , Headaches , Nausea , Breathing Changes , Cough , Mouth Sores/Stomatitis/Mucositis , Changes in Appetite , Vomiting , Diarrhea , Constipation , Urinary Changes , Bleeding . Entered By Emily Lujan RN on 10:17 Medication Administration : Incident to: Shayne Castellanos MD Leuprolide D1 Q3M Hormone Therapy Leuprolide IM, 22.5 mg intramuscularly every 3 months, Allow Substitution GIVEN: 22.5 mg Pharmacy plan: Dispense/Waste: 22.5/0 mg Pharmacy dispense: [facility]: [id number] Dispense/Waste: 22.5/0 mg Given Dose/Discard: 22.5/0 mg Admin Details: Injection Location: Left-Dorsogluteal, Comments: X1 Time: 10:13 Checked By: Royce aMnzanares RN on 04/08/2021 10:13 * Nurse Note for: 07-JAN-21 [facility] Nurse Note Print Location: Unknown Date/Time Printed: 10/11/2024 10:32 ([facility]) Patient: RICHI CRUZ Sex: Male : 1950 Date of Service: 01/07/2021 Allergies : No Known Allergies Vital Signs : Time: 11:12. Weight: 176.4 lb (80.01 kg). BMI: 30.28 (kg/m2) . BSA: 1.9 (m2) . Entered by Jennifer Naqvi RN 01/07/2021 11:16 Time: 11:12. Height: 64 in (162.56 cm). Temperature: 97.9 F (36.61 C) oral. Pulse: 70 (/min) . Respirations: 15 (/min) . Blood pressure: 116/77 (mm Hg) right arm Regular. Pain Scale: 0. O2 Saturation: 98 (%) at rest. Entered by Jennifer Sparks RN 01/07/2021 11:13 Patient Assessment : Positive results Assessment : Labs Verified: Yes, Alert, oriented with appropriate behavior. Negative results Assessment : Gait Changes. Denies Neuropathy , Pain -0-No pain, Fatigue , Anxiety/Depression , Fever, Chills or Night Sweats ,Signs of Infection , Skin Changes , Dizziness , Headaches , Nausea , Breathing Changes , Cough , Mouth Sores/Stomatitis/Mucositis , Changes in Appetite , Vomiting , Diarrhea , Constipation , Urinary Changes , Bleeding . Entered By Tiffanie Draper RN on 12:31 IV Access/Lab Draw : IV Access-Lab Draw Only - Peripheral vein (venipuncture), Tube Color-Yellow,SST, Access Attempts-1 time(s), Entered By Tiffanie Draper RN on 12:31 Medication Administration : Incident to: Shayne Castellanos MD Leuprolide D1 Q3M Hormone Therapy Leuprolide IM, 22.5 mg intramuscularly every 3 months, Allow Substitution GIVEN: 22.5 mg Pharmacy plan: Dispense/Waste: 22.5/0 mg Pharmacy dispense: [facility]: [id number] Dispense/Waste: 22.5/0 mg Given Dose/Discard: 22.5/0 mg Admin Details: Injection Location: Right-Dorsogluteal Time: 11:30 Checked By: Tiffanie Draper RN on 01/07/2021 12:31 * Nurse Note for: 08-OCT-20 [facility] Nurse Note Print Location: Unknown Date/Time Printed: 10/11/2024 10:32 ([facility]) Patient: RICHI CRUZ Sex: Male : 1950 Date of Service: 10/08/2020 Allergies : No Known Allergies Vital Signs : Time: 10:41. Weight: 179.4 lb (81.37 kg). Height: 64 in (162.56 cm). BMI: 30.79 (kg/m2) . BSA: 1.92(m2) . Temperature: 98.2 F (36.78 C) oral. Pulse: 84 (/min) . Respirations: 12 (/min) . Blood pressure: 128/82 (mm Hg). Pain Scale: 0. Entered by Rosetta Wilkinson MA 10/08/2020 10:48 Patient Assessment : Positive results Assessment : Labs Verified: Yes, Alert, oriented with appropriate behavior. Negative results Assessment : Gait Changes. Denies Neuropathy , Pain -0-No pain, Fatigue , Anxiety/Depression , Fever, Chills or Night Sweats ,Signs of Infection , Skin Changes , Dizziness , Headaches , Nausea , Breathing Changes , Cough , Mouth Sores/Stomatitis/Mucositis , Changes in Appetite , Vomiting , Diarrhea , Constipation , Urinary Changes , Bleeding . Entered By Viki Harden RN on 11:24 Medication Administration : Incident to: Catrachito Boss MD Leuprolide D1 Q3M Hormone Therapy Leuprolide IM, 22.5 mg intramuscularly every 3 months, Allow Substitution GIVEN: 22.5 mg Pharmacy plan: Dispense/Waste: 22.5/0 mg Pharmacy dispense: [facility]: [id number] Dispense/Waste: 22.5/0 mg Given Dose/Discard: 22.5/0 mg Admin Details: Injection Location: Left-Dorsogluteal Time: 11:22
--- OUTSIDE RECORDS SUMMARY | 2024-10-11 10:33 | XMS_ITS ---
Author Name Interface, [id number] Address [address] [place] [address] [facility] Address [address] [place] [address] Allergies and Adverse Reactions Plan Reason for Visit Encounters Immunizations Diagnostic Results Medications Problems Vital Signs Notes Section
--- OUTSIDE RECORDS SUMMARY | 2024-10-11 10:33 | XMS_ITS ---
Author Name Interface, [id number] lity Address [address] [place] [address] [facility] Address [address] [place] [address] Allergies and Adverse Reactions Medication/Group Name Reaction [...] 15 MIN 10/11/2023 APPOINTMENT PORT FLUSH 15 WA N 10/11/2023 APPOINTMENT LAB 15 MIN 10/11/2023 [...] Leup rolide D1 Q3M 10/10/2022 APPOINTMENT Lab 10/10/2022 LABORDER CBC w/ auto diff 10/10/2022 [...] Visit OV 15 MIN Encounters Date Name 10/10/2022 Anemia 10/10/2022 Essential hypertensi on (disorder) 10/10/2022 Prostate cancer in s itu Diagnostic Results Date Type Test Units Lower Limit Upper Limit Result Flag Comments Status Ordered By Specimen Source Lab Address 10/10 CMP - Core Lab Sodiu m mmol/L 136.0 145.0 140 FINAL [facility] ([facility]), [address] [place] [address] 33616 10/10 CMP - Core Lab Potas sium mmol/L 3.5 5.1 4.6 FINAL [facility] ([facility]), [address] [place] [address] 42398 10/10 CMP - Core Lab Chlor naif mmol/L 98.0 107.0 104 FINAL [facility] ([facility]), [address] [place] [address] 07795 10/10 CMP - Core Lab CO2 mmol/L 20.0 31.0 27.7 FINAL [facility] ([facility]), [address] [place] [address] 20711 10/10 CMP - Core Lab Anion gap, mmol/ L mmol/L 4.0 15.0 8.3 FINAL [facility] ([facility]), [address] [place] [address] 64873 10/10 CMP - Core Lab BUN mg/dL 9.0 23.0 19 FINAL [facility] ([facility]), [address] [place] [address] 82483 10/10 CMP - Core Lab BUN/C reati nine ratio 0.0 25.0 18.3 FINAL [facility] ([facility]), [address] [place] [address] 13515 10/10 CMP - Core Lab Creat inine mg/dL 0.73 1.18 1.04 FINAL [facility] ([facility]), [address] [place] [address] 68208 10/10 CMP - Core Lab GFR non-A frica n Ameri can, estim ated mL/min /1.73m >60.0 FINAL [facility] ([facility]), [address] [place] [address] 38842 10/10 CMP - Core Lab GFR Afric an Ameri can, estim ated mL/min /1.73m >60.0 FINAL [facility] ([facility]), [address] [place] [address] 59027 10/10 CMP - Core Lab Gluco se mg/dL 74.0 106.0 110 High FINAL [facility] ([facility]), [address] [place] [address] [place] [address] 10/10 CMP - Core Lab Calci um mg/dL 8.7 10.6 9.6 FINAL [facility] ([facility]), [address] [place] [address] 38282 10/10 CMP - Core Lab Album in g/dL 3.4 5.0 3.7 FINAL [facility] ([facility]), [address] [place] [address] [place] [address] 10/10 CMP - Core Lab Total prote in g/dL 5.7 8.2 6.4 FINAL [facility] ([facility]), [address] [place] [address] [place] [address] 10/10 CMP - Core Lab A/G ratio 1.0 2.0 1.4 FINAL [facility] ([facility]), [address] [place] [address] 24630 10/10 CMP - Core Lab Alkal ine phosp hatas e U/L 46.0 116.0 33 Low FINAL [facility] ([facility]), [address] [place] [address] 19789 10/10 CMP - Core Lab ALT/S GPT U/L 10.0 49.0 27 FINAL [facility] ([facility]), [address] [place] [address] 13451 10/10 CMP - Core Lab AST/S GOT U/L 0.0 34.0 25 FINAL [facility] ([facility]), [address] [place] [address] 68626 10/10 CMP - Core Lab Bilir ubin, total mg/dL 0.3 1.2 0.4 FINAL [facility] ([facility]), [address] [place] [address] 97776 10/10 PSA, total ng/mL 0.04 FINAL [facility] ([facility]), [address] [place] [address] 40185 10/10 CBC w/ auto diff WBC 10*3/u L 4.2 9.1 3.8 Low FINAL [facility] ([facility]), [address], [address] [place] [address] 47905 10/10 CBC w/ auto diff Alan # (ANC) 10*3/u L 1.78 5.38 2.36 FINAL [facility] ([facility]), [address], [address] [place] [address] 66339 10/10 CBC w/ auto diff LY # 10*3/u L 1.32 3.57 0.77 Low FINAL [facility] ([facility]), [address], [address] [place] [address] 44387 10/10 CBC w/ auto diff MO # 10*3/u L 0.3 0.82 0.46 FINAL [facility] ([facility]), [address], [address] [place] [address] 75674 10/10 CBC w/ auto diff EO # 10*3/u lL 0.04 0.54 0.23 FINAL Shayne Castellanos [facility] ([facility]), [address], [address] [place] [address] 10/10 CBC w/ auto diff BA # 10*3/u L 0.01 0.08 0.01 FINAL [facility] ([facility]), [address], [address] [place] [address] 10/10 CBC w/ auto diff Alan % % 34.0 67.9 61.6 FINAL [facility] ([facility]), [address], [address] [place] [address] 10/10 CBC w/ auto diff LY % % 21.8 53.1 20.1 Low FINAL [facility] (T), [address], [address] [place] [address] 10/10 CBC w/ auto diff MO % % 5.3 12.2 12.0 FINAL [facility] ([facility]), [address], [address] [place] [address] 10/10 CBC w/ auto diff EO % % 0.8 7.0 6.0 FINAL [facility] (T), [address], [address] [place] [address] 10/10 CBC w/ auto diff BA % % 0.2 1.2 0.3 FINAL [facility] (T), [address], [address] [place] [address] 10/10 CBC w/ auto diff RBC 10*6/u L 4.63 6.08 3.70 Low FINAL [facility] ([facility]), [address], [address] [place] [address] 10/10 CBC w/ auto diff HGB g/dL 13.7 17.5 11.2 Low FINAL [facility] ([facility]), [address], [address] [place] [address] 10/10 CBC w/ auto diff HCT % 40.1 51.0 33.4 Low FINAL [facility] ([facility]), [address], [address] [facility] [address] 10/10 CBC w/ auto diff MCV fL 79.0 92.2 90.3 FINAL [facility] (T), [address], [address] [facility] [address] 10/10 CBC w/ auto diff MCH pg 25.7 32.2 30.3 FINAL [facility] (T), [address], [address] [facility] [address] 10/10 CBC w/ auto diff MCHC g/dL 32.3 36.5 33.5 FINAL [facility] (T), [address], [address] [facility] [address] 10/10 CBC w/ auto diff RDW-C V, % % 11.6 14.4 14.4 FINAL [facility] (T), [address], [address] [facility] [address] 10/10 CBC w/ auto diff PLT 10*3/u L 163.0 337.0 154.0 Low FINAL [facility] (T), [address], [address] [place] [address] 54497 10/10 Darren tin ng/mL 10.5 307.3 207.9 FINAL [facility] ([facility]), [facility] 288[address] 10/10 TIBC and perce nt sat w/ iron panel Iron / FE ug/dL 65.0 175.0 84 FINAL [facility] ([facility]), [facility] 91182 10/10 TIBC and perce nt sat w/ iron panel TIBC ug/dL 250.0 425.0 398 FINAL [facility] ([facility]), [address] [place] [address] 79365 10/10 TIBC and perce nt sat w/ iron panel Iron, % satur ation % 20.0 50.0 21 FINAL [facility] ([facility]), [address] [facility] [address] 10/24 Lab Repor t See sea air land officer d 01/10 PSA, total ng/mL 0.04 FINAL Destini Bui [facility] ([facility]), [address] [facility] [address] 01/10 CBC w/ auto diff WBC 10*3/u L 4.2 9.1 4.1 Low FINAL [facility] ([facility]), [address], [address] [place] [address] 37457 01/10 CBC w/ auto diff Alan # (ANC) 10*3/u L 1.78 5.38 2.90 FINAL [facility] (T), [address], [address] [place] [address] 01/10 CBC w/ auto diff LY # 10*3/u L 1.32 3.57 0.69 Low FINAL [facility] ([facility]), [address], [address] [place] [address] 53704 01/10 CBC w/ auto diff MO # 10*3/u L 0.3 0.82 0.37 FINAL Destini [facility] ([facility]), [address], [address] [place] [address] 86513 01/10 CBC w/ auto diff EO # 10*3/u lL 0.04 0.54 0.11 FINAL Dest[facility] ([facility]), [address], [address] [place] [address] 99266 01/10 CBC w/ auto diff BA # 10*3/u L 0.01 0.08 0.01 FINAL [facility] ([facility]), [address], [address] [place] [address] 27450 01/10 CBC w/ auto diff Alan % % 34.0 67.9 71.1 High FINAL [facility] (T), [address], [address] [place] [address] 72369 11/07 /2023 CBC w/ auto diff LY % % 21.8 53.1 16.9 Low FINAL Dest[facility] ([facility]), [address], [address] [place] [address] 01/10 CBC w/ auto diff MO % % 5.3 12.2 9.1 FINAL [facility] ([facility]), [address], [address] [place] [address] 01/10 CBC w/ auto diff EO % % 0.8 7.0 2.7 FINAL [facility] ([facility]), [address], [address] [place] [address] 01/10 CBC w/ auto diff BA % % 0.2 1.2 0.2 FINAL [facility] ([facility]), [address], [address] [place] [address] 01/10 CBC w/ auto diff RBC 10*6/u L 4.63 6.08 3.46 Low FINAL [facility] ([facility]), [address], [address] [place] [address] 01/10 CBC w/ auto diff HGB g/dL 13.7 17.5 10.5 Low FINAL [facility] ([facility]), [address], [address] [place] [address] 01/10 CBC w/ auto diff HCT % 40.1 51.0 31.3 Low FINAL [facility] ([facility]), [address], [address] [place] [address] 01/10 CBC w/ auto diff MCV fL 79.0 92.2 90.5 FINAL [facility] ([facility]), [address], [address] [place] [address] 01/10 CBC w/ auto diff MCH pg 25.7 32.2 30.3 FINAL [facility] ([facility]), [address], [address] [place] [address] 01/10 CBC w/ auto diff MCHC g/dL 32.3 36.5 33.5 FINAL [facility] ([facility]), [address], [address] [facility] [address] 01/10 CBC w/ auto diff RDW-C V, % % 11.6 14.4 12.7 FINAL [facility] (T), [address], [address] [facility] [address] 01/10 CBC w/ auto diff PLT 10*3/u L 163.0 337.0 182.0 FINAL [facility] (T), [address], [address] [facility] [address] 01/10 CMP - Core Lab Sodiu m mmol/L 136.0 145.0 139 FINAL [facility] ([facility]), [address] [place] [address] 51381 01/10 CMP - Core Lab Potas sium mmol/L 3.5 5.1 4.1 FINAL [facility] ([facility]), [address] [place] [address] [place] [address] 01/10 CMP - Core Lab Chlor naif mmol/L 98.0 107.0 105 FINAL [facility] ([facility]), [address] [place] [address] [place] [address] 01/10 CMP - Core Lab CO2 mmol/L 20.0 31.0 27.2 FINAL [facility] ([facility]), [address] [place] [address] [place] [address] 01/10 CMP - Core Lab Anion gap, mmol/ L mmol/L 4.0 15.0 6.8 FINAL [facility] ([facility]), [address] [place] [address] [place] [address] 01/10 CMP - Core Lab BUN mg/dL 9.0 23.0 31 High FINAL [facility] ([facility]), [address] [place] [address] [place] [address] 01/10 CMP - Core Lab BUN/C reati nine ratio 0.0 25.0 28.7 High FINAL [facility] ([facility]), [address] [place] [address] [place] [address] 01/10 CMP - Core Lab Creat inine mg/dL 0.73 1.18 1.08 [facility] [address] [place] [address] [place] [address] 01/10 CMP - Core Lab GFR non-A frica n Ameri can, estim ated mL/min /1.73m >60.0 [facility]), [address] [place] [address] 82985 01/10 CMP - Core Lab GFR Afric an Ameri can, estim ated mL/min /1.73m >60.0 FINAL [facility] ([facility]), [address] [place] [address] 96968 01/10 CMP - Core Lab Gluco se mg/dL 74.0 106.0 103 FINAL [facility] ([facility]), [address] [place] [address] [place] [address] 01/10 CMP - Core Lab Calci um mg/dL 8.7 10.6 10.1 FINAL [facility] ([facility]), [address] [place] [address] [place] [address] 01/10 CMP - Core Lab Album in g/dL 3.4 5.0 4.0 FINAL [facility] ([facility]), [address] [place] [address] [place] [address] 01/10 CMP - Core Lab Total prote in g/dL 5.7 8.2 6.7 FINAL [facility] ([facility]), [address] [place] [address] [place] [address] 01/10 CMP - Core Lab A/G ratio 1.0 2.0 1.5 FINAL [facility] ([facility]), [address] [place] [address] [place] [address] 01/10 CMP - Core Lab Alkal ine phosp hatas e U/L 46.0 116.0 36 Low FINAL [facility] ([facility]), [address] [place] [address] [place] [address] 01/10 CMP - Core Lab ALT/S GPT U/L 10.0 49.0 22 FINAL [facility] ([facility]), [address] [place] [address] [place] [address] 01/10 CMP - Core Lab AST/S GOT U/L 0.0 34.0 23 FINAL [facility] ([facility]), [address] [place] [address] 55610 01/10 CMP - Core Lab Bilir ubin, total mg/dL 0.3 1.2 0.4 FINAL [facility] ([facility]), [address] [place] [address] 87825 04/12 CMP - Core Lab Sodiu m mmol/L 136.0 145.0 140 FINAL [facility] ([facility]), [address] [place] [address] 52611 04/12 CMP - Core Lab Potas sium mmol/L 3.5 5.1 4.7 FINAL [facility] ([facility]), [address] [place] [address] 96555 04/12 CMP - Core Lab Chlor naif mmol/L 98.0 107.0 105 FINAL [facility] ([facility]), [address] [place] [address] [place] [address] 04/12 CMP - Core Lab CO2 mmol/L 20.0 31.0 25.7 FINAL [facility] ([facility]), [address] [place] [address] [place] [address] 04/12 CMP - Core Lab Anion gap, mmol/ L mmol/L 4.0 15.0 9.3 FINAL [facility] ([facility]), [address] [place] [address] [place] [address] 04/12 CMP - Core Lab BUN mg/dL 9.0 23.0 20 FINAL [facility] ([facility]), [address] [place] [address] [place] [address] 04/12 CMP - Core Lab BUN/C reati nine ratio 0.0 25.0 19.0 FINAL [facility] ([facility]), [address] [place] [address] 99929 04/12 CMP - Core Lab Creat inine mg/dL 0.73 1.18 1.05 FINAL [facility] ([facility]), [address] [place] [address] 37716 04/12 CMP - Core Lab GFR non-A frica n Ameri can, estim ated mL/min /1.73m >60.0 FINAL [facility] ([facility]), [address] [place] [address] 07871 04/12 CMP - Core Lab GFR Afric an Ameri can, estim ated mL/min /1.73m >60.0 FINAL [facility] ([facility]), [address] [place] [address] 97546 04/12 CMP - Core Lab Gluco se mg/dL 74.0 106.0 109 High FINAL [facility] ([facility]), [address] [place] [address] 43061 04/12 CMP - Core Lab Calci um mg/dL 8.7 10.6 10.0 FINAL [facility] ([facility]), [address] [place] [address] 37878 04/12 CMP - Core Lab Album in g/dL 3.4 5.0 3.8 FINAL [facility] ([facility]), [address] [place] [address] 75059 04/12 CMP - Core Lab Total prote in g/dL 5.7 8.2 6.6 FINAL [facility] ([facility]), [address] [place] [address] 49495 04/12 CMP - Core Lab A/G ratio 1.0 2.0 1.4 FINAL [facility] ([facility]), [address] [place] [address] 09546 04/12 CMP - Core Lab Alkal ine phosp hatas e U/L 46.0 116.0 35 Low FINAL [facility] ([facility]), [address] [place] [address] 64203 04/12 CMP - Core Lab ALT/S GPT U/L 10.0 49.0 34 FINAL [facility] ([facility]), [address] [facility] [address] 04/12 CMP - Core Lab AST/S GOT U/L 0.0 34.0 38 High FINAL [facility] ([facility]), [facility] [address] 04/12 CMP - Core Lab Bilir ubin, total mg/dL 0.3 1.2 0.4 FINAL [facility] ([facility]), [address] [place] [address] 77498 04/12 PSA, total ng/mL 0.04 FINAL [facility] ([facility]), [address] [place] [address] 92137 04/12 CBC w/ auto diff WBC 10*3/u L 4.2 9.1 4.7 FINAL [facility]), [address], [address] [place], [place] [address] 04/12 CBC w/ auto diff Alan # (ANC) 10*3/u L 1.78 5.38 3.26 FINAL [facility] ([facility]), [address], [address] [place], [place] [address] 04/12 CBC w/ auto diff LY # 10*3/u L 1.32 3.57 0.88 Low FINAL [facility] ([facility]), [address], [address] [place], [place] [address] 04/12 CBC w/ auto diff MO # 10*3/u L 0.3 0.82 0.42 FINAL [facility] ([facility]), [address], [address] [place], [place] [address] 04/12 CBC w/ auto diff EO # 10*3/u lL 0.04 0.54 0.15 FINAL [facility] ([facility]), [address], [address] [place], [place] [address] 04/12 CBC w/ auto diff BA # 10*3/u L 0.01 0.08 0.02 FINAL [facility] ([facility]), [address], [address] [place] [address] 04/12 CBC w/ auto diff Alan % % 34.0 67.9 68.9 High FINAL [facility] ([facility]), [address], [address] [place] [address] 04/12 CBC w/ auto diff LY % % 21.8 53.1 18.6 Low FINAL [facility] ([facility]), [address], [address] [place] [address] 04/12 CBC w/ auto diff MO % % 5.3 12.2 8.9 FINAL [facility] ([facility]), [address], [address] [place] [address] 04/12 CBC w/ auto diff EO % % 0.8 7.0 3.2 FINAL [facility] ([facility]), [address], [address] [place] [address] 04/12 CBC w/ auto diff BA % % 0.2 1.2 0.4 FINAL [facility] ([facility]), [address], [address] [place] [address] 04/12 CBC w/ auto diff RBC 10*6/u L 4.63 6.08 3.84 Low FINAL [facility] ([facility]), [address], [address] [place] [address] 04/12 CBC w/ auto diff HGB g/dL 13.7 17.5 11.4 Low FINAL [facility] ([facility]), [address], [address] [place] [address] 04/12 CBC w/ auto diff HCT % 40.1 51.0 35.6 Low FINAL [facility] ([facility]), [address], [address] [place] [address] 04/12 CBC w/ auto diff MCV fL 79.0 92.2 92.7 High FINAL [facility] (T), [address], [address] [place] [address] 04/12 CBC w/ auto diff MCH pg 25.7 32.2 29.7 FINAL [facility] (T), [address], [address] [place] [address] 04/12 CBC w/ auto diff MCHC g/dL 32.3 36.5 32.0 Low FINAL [facility] ([facility]), [address], [address] [place] [address] 04/12 CBC w/ auto diff RDW-C V, % % 11.6 14.4 13.7 FINAL [facility] (T), [address], [address] [place] [address] 04/12 CBC w/ auto diff PLT 10*3/u L 163.0 337.0 177.0 FINAL [facility] ([facility]), [address], [address] [place] [address] 07/10 CBC w/ auto diff WBC 10*3/u L 4.2 9.1 5.3 FINAL [facility] ([facility]), [address], [address] [place] [address] 07/10 CBC w/ auto diff Alan # (ANC) 10*3/u L 1.78 5.38 3.62 FINAL Dest[facility] ([facility]), [address], [address] [place] [address] 07/10 CBC w/ auto diff LY # 10*3/u L 1.32 3.57 0.96 Low FINAL [facility] ([facility]), [address], [address] [place] [address] 07/10 CBC w/ auto diff MO # 10*3/u L 0.3 0.82 0.47 FINAL [facility] ([facility]), [address], [address] [place] [address] 07/10 CBC w/ auto diff EO # 10*3/u lL 0.04 0.54 0.24 FINAL [facility] ([facility]), [address], [address] [place] [address] 07/10 CBC w/ auto diff BA # 10*3/u L 0.01 0.08 0.01 FINAL [facility] ([facility]), [address], [address] [place] [address] 07/10 CBC w/ auto diff Alan % % 34.0 67.9 68.3 High FINAL [facility] ([facility]), [address], [address] [place] [address] 07/10 CBC w/ auto diff LY % % 21.8 53.1 18.1 Low FINAL Dest[facility] ([facility]), [address], [address] [place] [address] 07/10 CBC w/ auto diff MO % % 5.3 12.2 8.9 FINAL [facility] ([facility]), [address], [address] [place] [address] 07/10 CBC w/ auto diff EO % % 0.8 7.0 4.5 FINAL [facility] ([facility]), [address], [address] [place] [address] 07/10 CBC w/ auto diff BA % % 0.2 1.2 0.2 FINAL [facility] ([facility]), [address], [address] [place] [address] 07/10 CBC w/ auto diff RBC 10*6/u L 4.63 6.08 4.05 Low FINAL [facility] ([facility]), [address], [address] [place] [address] 07/10 CBC w/ auto diff HGB g/dL 13.7 17.5 12.1 Low FINAL [facility] ([facility]), [address], [address] [place] [address] 07/10 CBC w/ auto diff HCT % 40.1 51.0 37.2 Low FINAL [facility] (T), [address], [address] [place] [address] 07/10 CBC w/ auto diff MCV fL 79.0 92.2 91.9 FINAL [facility] (T), [address], [address] [place] [address] 07/10 CBC w/ auto diff MCH pg 25.7 32.2 29.9 FINAL [facility] (T), [address], [address] [place] [address] 07/10 CBC w/ auto diff MCHC g/dL 32.3 36.5 32.5 FINAL [facility] ([facility]), [address], [address] [place] [address] 07/10 CBC w/ auto diff RDW-C V, % % 11.6 14.4 13.6 FINAL [facility] (T), [address], [address] [place] [address] 07/10 CBC w/ auto diff PLT 10*3/u L 163.0 337.0 166.0 FINAL [facility] ([facility]), [address], [address] [place] [id number] 07/10 PSA, total ng/mL 0.04 FINAL [facility] ([facility]), [address] [place] [id number] 07/10 CMP - Core Lab Sodiu m mmol/L 136.0 145.0 140 FINAL [facility] ([facility]), [facility] [facility] [place] [address] 07/10 CMP - Core Lab Potas sium mmol/L 3.5 5.1 4.4 FINAL [facility] ([facility]), [facility] [place] [id number] 07/10 CMP - Core Lab Chlor naif mmol/L 98.0 107.0 105 FINAL [facility] ([facility]), [address] [place] [address] [place] [address] 07/10 CMP - Core Lab CO2 mmol/L 20.0 31.0 25.7 FINAL [facility] ([facility]), [address] [place] [address] [place] [address] 07/10 CMP - Core Lab Anion gap, mmol/ L mmol/L 4.0 15.0 9.3 FINAL [facility] ([facility]), [address] [place] [address] [place] [address] 07/10 CMP - Core Lab BUN mg/dL 9.0 23.0 23 FINAL [facility] ([facility]), [address] [place] [address] 07/10 CMP - Core Lab BUN/C reati nine ratio 0.0 25.0 22.8 FINAL [facility] ([facility]), [address] [place] [address] 07/10 CMP - Core Lab Creat inine mg/dL 0.73 1.18 1.01 FINAL [facility] ([facility]), [address] [place] [address] [place] [address] 07/10 CMP - Core Lab eGFR, mL/mi n/1.7 3 mL/min /1.73m 60.0 0.0 >60.0 FINAL [facility] ([facility]), [address] [place] [address] [place] [address] 07/10 CMP - Core Lab Gluco se mg/dL 74.0 106.0 124 High FINAL [facility] ([facility]), [address] [place] [address] [place] [address] 07/10 CMP - Core Lab Calci um mg/dL 8.7 10.6 10.4 FINAL [facility] ([facility]), [address] [place] [address] [place] [address] 07/10 CMP - Core Lab Album in g/dL 3.4 5.0 4.1 FINAL [facility] ([facility]), [address] [place] [address] [place] [address] 07/10 CMP - Core Lab Total prote in g/dL 5.7 8.2 7.1 FINAL [facility] ([facility]), [address] [place] [address] [place] [address] 07/10 CMP - Core Lab A/G ratio 1.0 2.0 1.4 FINAL [facility] ([facility]), [address] [place] [address] [place] [address] 07/10 CMP - Core Lab Alkal ine phosp hatas e U/L 46.0 116.0 38 Low FINAL [facility] ([facility]), [address] [place] [address] [place] [address] 07/10 CMP - Core Lab ALT/S GPT U/L 10.0 49.0 23 FINAL [facility] ([facility]), [address] [place] [address] [place] [address] 07/10 CMP - Core Lab AST/S GOT U/L 0.0 34.0 26 FINAL [facility] ([facility]), [address] [place] [address] [place] [address] 07/10 CMP - Core Lab Bilir ubin, total mg/dL 0.3 1.2 0.4 FINAL [facility] ([facility]), [address] [place] [address] [place] [address] 10/10 PSA, total ng/mL 0.04 FINAL [facility] ([facility]), [address] [place] [address] [place] [address] 10/10 CMP - Core Lab Sodiu m mmol/L 136.0 145.0 139 FINAL [facility] ([facility]), [address] [place] [address] [place] [address] 10/10 CMP - Core Lab Potas sium mmol/L 3.5 5.1 4.2 FINAL [facility] ([facility]), [address] [place] [address] [place] [address] 10/10 CMP - Core Lab Chlor naif mmol/L 98.0 107.0 107 FINAL [facility] ([facility]), [address] [place] [address] [place] [address] 10/10 CMP - Core Lab CO2 mmol/L 20.0 31.0 27.3 FINAL [facility] ([facility]), [address] [place] [address] [place] [address] 10/10 CMP - Core Lab Anion gap, mmol/ L mmol/L 4.0 15.0 4.7 FINAL [facility] ([facility]), [address] [place] [address] [place] [address] 10/10 CMP - Core Lab BUN mg/dL 9.0 23.0 15 FINAL [facility] ([facility]), [address] [place] [address] [place] [address] 10/10 CMP - Core Lab BUN/C reati nine ratio 0.0 25.0 15.3 FINAL [facility] ([facility]), [address] [place] [address] [place] [address] 10/10 CMP - Core Lab Creat inine mg/dL 0.73 1.18 0.98 FINAL [facility] ([facility]), [address] [place] [address] [place] [address] 10/10 CMP - Core Lab eGFR, mL/mi n/1.7 3 mL/min /1.73m 60.0 0.0 >60.0 FINAL [facility] ([facility]), [address] [place] [address] [place] [address] 10/10 CMP - Core Lab Gluco se mg/dL 74.0 106.0 95 FINAL [facility] ([facility]), [address] [place] [address] [place] [address] 10/10 CMP - Core Lab Calci um mg/dL 8.7 10.6 9.5 FINAL [facility] ([facility]), [address] [place] [address] [place] [address] 10/10 CMP - Core Lab Album in g/dL 3.4 5.0 3.8 FINAL [facility] ([facility]), [address] [place] [address] [place] [address] 10/10 CMP - Core Lab Total prote in g/dL 5.7 8.2 6.5 FINAL [facility] ([facility]), [address] [place] [address] 10/10 CMP - Core Lab A/G ratio 1.0 2.0 1.4 FINAL [facility] ([facility]), [address] [place] [address] 10/10 CMP - Core Lab Alkal ine phosp hatas e U/L 46.0 116.0 44 Low FINAL [facility] ([facility]), [address] [place] [address] 10/10 CMP - Core Lab ALT/S GPT U/L 10.0 49.0 19 FINAL [facility] ([facility]), [address] [place] [address] 10/10 CMP - Core Lab AST/S GOT U/L 0.0 34.0 23 FINAL [facility] ([facility]), [address] [place] [address] 10/10 CMP - Core Lab Bilir ubin, total mg/dL 0.3 1.2 0.4 FINAL [facility] ([facility]), [address] [place] [address] 10/10 CBC w/ auto diff WBC 10*3/u L 4.2 9.1 4.4 FINAL [facility]), [address], [address] [place] [address] 10/10 CBC w/ auto diff Alan # (ANC) 10*3/u L 1.78 5.38 3.10 FINAL [facility] ([facility]), [address], [address] [facility] [address] 10/10 CBC w/ auto diff LY # 10*3/u L 1.32 3.57 0.74 Low FINAL [facility] ([facility]), [address], [address] [facility] [address] 10/10 CBC w/ auto diff MO # 10*3/u L 0.3 0.82 0.36 FINAL [facility] ([facility]), [address], [address] [place] [address] 10/10 CBC w/ auto diff EO # 10*3/u lL 0.04 0.54 0.14 FINAL [facility] ([facility]), [address], [address] [place] [address] 10/10 CBC w/ auto diff BA # 10*3/u L 0.01 0.08 0.02 FINAL [facility] ([facility]), [address], [address] [place] [address] 10/10 CBC w/ auto diff Alan % % 34.0 67.9 71.0 High FINAL [facility] (T), [address], [address] [place] [address] 10/10 CBC w/ auto diff LY % % 21.8 53.1 17.0 Low FINAL [facility] ([facility]), [address], [address] [place] [address] 10/10 CBC w/ auto diff MO % % 5.3 12.2 8.3 FINAL [facility] ([facility]), [address], [address] [place] [address] 10/10 CBC w/ auto diff EO % % 0.8 7.0 3.2 FINAL [facility] ([facility]), [address], [address] [place] [address] 10/10 CBC w/ auto diff BA % % 0.2 1.2 0.5 FINAL [facility] ([facility]), [address], [address] [place] [address] 10/10 CBC w/ auto diff RBC 10*6/u L 4.63 6.08 4.04 Low FINAL [facility] ([facility]), [address], [address] [place] [address] 10/10 CBC w/ auto diff HGB g/dL 13.7 17.5 12.4 Low FINAL [facility] (T), [address], [address] [place] [address] 10/10 CBC w/ auto diff HCT % 40.1 51.0 38.0 Low FINAL [facility] ([facility]), [address], [address] [place] [address] 10/10 CBC w/ auto diff MCV fL 79.0 92.2 94.1 High FINAL [facility]), [address], [address] [place] [address] 10/10 CBC w/ auto diff MCH pg 25.7 32.2 30.7 FINAL [facility] (T), [address], [address] [place] [address] 10/10 CBC w/ auto diff MCHC g/dL 32.3 36.5 32.6 FINAL [facility]), [address], [address] [place] [address] 10/10 CBC w/ auto diff RDW-C V, % % 11.6 14.4 13.9 FINAL [facility] (T), [address], [address] [place] [address] 10/10 CBC w/ auto diff PLT 10*3/u L 163.0 337.0 174.0 FINAL [facility] ([facility]), [address], [address] [place] [address] 01/10 CBC w/ auto diff WBC 10*3/u L 4.2 9.1 5.7 FINAL [facility] ([facility]), [address], [address] [place] [address] 01/10 CBC w/ auto diff Alan # (ANC) 10*3/u L 1.78 5.38 3.77 FINAL [facility] ([facility]), [address], [address] [place] [address] 01/10 CBC w/ auto diff LY # 10*3/u L 1.32 3.57 1.16 Low FINAL [facility] ([facility]), [address], [address] [facility] [address] 01/10 CBC w/ auto diff MO # 10*3/u L 0.3 0.82 0.49 FINAL [facility] ([facility]), [address], [address] [facility] [address] 01/10 CBC w/ auto diff EO # 10*3/u lL 0.04 0.54 0.25 FINAL [facility] ([facility]), [address], [address] [facility] [address] 01/10 CBC w/ auto diff BA # 10*3/u L 0.01 0.08 0.03 FINAL [facility] ([facility]), [address], [address] [place], [place] [id number] 01/10 CBC w/ auto diff Alan % % 34.0 67.9 66.1 FINAL [facility] ([facility]), [address], [address] [place] [id number] 01/10 CBC w/ auto diff LY % % 21.8 53.1 20.4 Low FINAL [facility] (T), [address], [address] [place] [phone] 01/10 CBC w/ auto diff MO % % 5.3 12.2 8.6 FINAL [facility] ([facility]), [address], [address] [place] [id number] 01/10 CBC w/ auto diff EO % % 0.8 7.0 4.4 FINAL [facility] ([facility]), [address], [address] [place] [address] 01/10 CBC w/ auto diff BA % % 0.2 1.2 0.5 FINAL [facility] ([facility]), [address], [address] [facility] [address] 01/10 CBC w/ auto diff RBC 10*6/u L 4.63 6.08 4.78 FINAL [facility] ([facility]), [address], [address] [facility] [address] 01/10 CBC w/ auto diff HGB g/dL 13.7 17.5 14.4 FINAL [facility] ([facility]), [address], [address] [place] [address] 01/10 CBC w/ auto diff HCT % 40.1 51.0 43.0 FINAL [facility] ([facility]), [address], [address] [place] [id number] 01/10 CBC w/ auto diff MCV fL 79.0 92.2 90.0 FINAL [facility] ([facility]), [address], [address] [place] [phone] 01/10 CBC w/ auto diff MCH pg 25.7 32.2 30.1 FINAL [facility] ([facility]), [address], [address] [place] [phone] 01/10 CBC w/ auto diff MCHC g/dL 32.3 36.5 33.5 FINAL [facility] ([facility]), [address], [address] [place] [phone] 01/10 CBC w/ auto diff RDW-C V, % % 11.6 14.4 13.2 FINAL [facility] ([facility]), [address], [address] [place] [phone] 01/10 CBC w/ auto diff PLT 10*3/u L 163.0 337.0 191.0 FINAL [facility] ([facility]), [address], [address] [place] [phone] 01/10 PSA, total ng/mL < 0.[address] [facility] [place] ([facility]), [address] [facility] [address] 01/10 CMP - Core Lab Sodiu m mmol/L 136.0 145.0 138 FINAL [facility] ([facility]), [address] [place] [address] [place] [address] 01/10 CMP - Core Lab Potas sium mmol/L 3.5 5.1 4.2 FINAL [facility] ([facility]), [address] [place] [address] [place] [address] 01/10 CMP - Core Lab Chlor naif mmol/L 98.0 107.0 106 FINAL [facility] ([facility]), [address] [place] [address] [place] [address] 01/10 CMP - Core Lab CO2 mmol/L 20.0 31.0 27.0 FINAL [facility] ([facility]), [address] [place] [address] [place] [address] 01/10 CMP - Core Lab Anion gap, mmol/ L mmol/L 4.0 15.0 5.0 FINAL [facility] ([facility]), [address] [place] [address] [place] [address] 01/10 CMP - Core Lab BUN mg/dL 9.0 23.0 18 FINAL [facility] ([facility]), [address] [place] [address] [place] [address] 01/10 CMP - Core Lab BUN/C reati nine ratio 0.0 25.0 18.6 FINAL [facility] ([facility]), [address] [place] [address] [place] [address] 01/10 CMP - Core Lab Creat inine mg/dL 0.73 1.18 0.97 FINAL [facility] ([facility]), [address] [place] [address] [place] [address] 01/10 CMP - Core Lab eGFR, mL/mi n/1.7 3 mL/min /1.73m 60.0 0.0 >60.0 FINAL [facility] ([facility]), [address] [place] [address] [place] [address] 01/10 CMP - Core Lab Gluco se mg/dL 74.0 106.0 104 FINAL [facility] ([facility]), [address] [place] [address] [place] [address] 01/10 CMP - Core Lab Calci um mg/dL 8.7 10.6 10.1 FINAL [facility] ([facility]), [address] [place] [address] [place] [address] 01/10 CMP - Core Lab Album in g/dL 3.4 5.0 4.2 FINAL [facility] ([facility]), [address] [place] [address] [place] [address] 01/10 CMP - Core Lab Total prote in g/dL 5.7 8.2 7.3 FINAL [facility] ([facility]), [address] [place] [address] [place] [address] 01/10 CMP - Core Lab A/G ratio 1.0 2.0 1.4 FINAL [facility] ([facility]), [address] [place] [address] [place] [address] 01/10 CMP - Core Lab Alkal ine phosp hatas e U/L 46.0 116.0 48 FINAL [facility] ([facility]), [address] [place] [address] [place] [address] 01/10 CMP - Core Lab ALT/S GPT U/L 10.0 49.0 23 FINAL [facility] ([facility]), [address] [place] [address] [place] [address] 01/10 CMP - Core Lab AST/S GOT U/L 0.0 34.0 22 FINAL [facility] ([facility]), [address] [place] [address] [place] [address] 01/10 CMP - Core Lab Bilir ubin, total mg/dL 0.3 1.2 0.5 FINAL [facility] ([facility]), [address] [place] [address] [place] [address] 04/11 CBC w/ auto diff WBC 10*3/u L 4.2 9.1 3.8 Low FINAL [facility] ([facility]), [address], [address] [place] [address] 04/11 CBC w/ auto diff Alan # (ANC) 10*3/u L 1.78 5.38 2.53 [facility] [address], [address] [place] [address] 04/11 CBC w/ auto diff LY # 10*3/u L 1.32 3.57 0.70 Low FINAL [facility] (T), [address], [address] [place] [address] 04/11 CBC w/ auto diff MO # 10*3/u L 0.3 0.82 0.40 FINAL [facility] (T), [address], [address] [place] [address] 04/11 CBC w/ auto diff EO # 10*3/u lL 0.04 0.54 0.17 FINAL [facility] (T), [address], [address] [place] [address] 04/11 CBC w/ auto diff BA # 10*3/u L 0.01 0.08 0.01 FINAL [facility] (T), [address], [address] [place] [address] 04/11 CBC w/ auto diff Alan % % 34.0 67.9 66.3 FINAL [facility] (T), [address], [address] [place] [address] 04/11 CBC w/ auto diff LY % % 21.8 53.1 18.4 Low FINAL [facility] (T), [address], [address] [place] [address] 04/11 CBC w/ auto diff MO % % 5.3 12.2 10.5 FINAL [facility] (T), [address], [address] [place] [address] 04/11 CBC w/ auto diff EO % % 0.8 7.0 4.5 FINAL [facility] (T), [address], [address] [place] [address] 04/11 CBC w/ auto diff BA % % 0.2 1.2 0.3 FINAL [facility] (T), [address], [address] [place] [address] 04/11 CBC w/ auto diff RBC 10*6/u L 4.63 6.08 3.66 Low FINAL [facility] (T), [address], [address] [place] [address] 04/11 CBC w/ auto diff HGB g/dL 13.7 17.5 11.4 Low FINAL [facility] (T), [address], [address] [place] [address] 04/11 CBC w/ auto diff HCT % 40.1 51.0 34.8 Low FINAL [facility] (T), [address], [address] [place] [address] 04/11 CBC w/ auto diff MCV fL 79.0 92.2 95.1 High FINAL [facility] (T), [address], [address] [place] [address] 04/11 CBC w/ auto diff MCH pg 25.7 32.2 31.1 FINAL [facility] (T), [address], [address] [place] [address] 04/11 CBC w/ auto diff MCHC g/dL 32.3 36.5 32.8 FINAL [facility] (T), [address], [address] [place] [address] 04/11 CBC w/ auto diff RDW-C V, % % 11.6 14.4 13.3 FINAL [facility] (T), [address], [address] [place] [address] 04/11 CBC w/ auto diff PLT 10*3/u L 163.0 337.0 183.0 FINAL [facility] (T), [address], [address] [place] [address] 04/11 CMP - Core Lab Sodiu m mmol/L 136.0 145.0 142 FINAL [facility] ([facility]), [address] [place] [address] 04/11 CMP - Core Lab Potas sium mmol/L 3.4 5.1 4.5 FINAL [facility] ([facility]), [address] [place] [address] 04/11 CMP - Core Lab Chlor naif mmol/L 98.0 107.0 106 FINAL [facility] ([facility]), [address] [place] [address] 04/11 CMP - Core Lab CO2 mmol/L 20.0 31.0 25.3 FINAL [facility] ([facility]), [address] [place] [address] 04/11 CMP - Core Lab Anion gap, mmol/ L mmol/L 4.0 15.0 10.7 FINAL [facility] ([facility]), [address] [place] [address] 04/11 CMP - Core Lab BUN mg/dL 9.0 23.0 23 FINAL [facility] ([facility]), [address] [place] [address] 04/11 CMP - Core Lab BUN/C reati nine ratio 0.0 25.0 24.2 FINAL [facility] ([facility]), [address] [place] [address] 04/11 CMP - Core Lab Creat inine mg/dL 0.73 1.18 0.95 FINAL [facility] ([facility]), [address] [place] [address] 04/11 CMP - Core Lab eGFR, mL/mi n/1.7 3 mL/min /1.73m 60.0 0.0 >60.0 FINAL [facility] ([facility]), [address] [place] [address] 04/11 CMP - Core Lab Gluco se mg/dL 74.0 106.0 87 FINAL [facility] ([facility]), [address] [place] [address] [place] [address] 04/11 CMP - Core Lab Calci um mg/dL 8.7 10.6 9.9 FINAL [facility] ([facility]), [address] [place] [address] [place] [address] 04/11 CMP - Core Lab Album in g/dL 3.4 5.0 3.9 FINAL [facility] ([facility]), [address] [place] [address] [place] [address] 04/11 CMP - Core Lab Total prote in g/dL 5.7 8.2 6.3 FINAL [facility] ([facility]), [address] [place] [address] 04/11 CMP - Core Lab A/G ratio 1.0 2.0 1.6 FINAL [facility] ([facility]), [address] [place] [address] [place] [address] 04/11 CMP - Core Lab Alkal ine phosp hatas e U/L 46.0 116.0 34 Low FINAL [facility] ([facility]), [address] [place] [address] [place] [address] 04/11 CMP - Core Lab ALT/S GPT U/L 10.0 49.0 19 FINAL [facility] ([facility]), [address] [place] [address] [place] [address] 04/11 CMP - Core Lab AST/S GOT U/L 0.0 34.0 22 FINAL [facility] ([facility]), [address] [place] [address] [place] [address] 04/11 CMP - Core Lab Bilir ubin, total mg/dL 0.3 1.2 0.3 FINAL [facility] ([facility]), [address] [place] [address] [place] [address] 04/11 PSA, total ng/mL < 0.04 FINAL [facility] ([facility]), [address] [place] [address] 07/11 CBC w/ auto diff WBC 10*3/u L 4.2 9.1 5.0 FINAL Milvia Johnson [facility] [address], [address] [facility] [address] 07/11 CBC w/ auto diff Alan # (ANC) 10*3/u L 1.78 5.38 3.34 FINAL Milvia Johnson [facility] ([facility]), [address], [address] [place] [id number] 07/11 CBC w/ auto diff LY # 10*3/u L 1.32 3.57 0.98 Low FINAL [facility] ([facility]), [address], [address] [place] [phone] 07/11 CBC w/ auto diff MO # 10*3/u L 0.3 0.82 0.41 FINAL Milvia Johnson [facility] ([facility]), [address], [address] [place] [id number] 07/11 CBC w/ auto diff EO # 10*3/u lL 0.04 0.54 0.24 FINAL Milvia Johnson [facility] ([facility]), [address], [address] [place] [phone] 07/11 CBC w/ auto diff BA # 10*3/u L 0.01 0.08 0.03 FINAL Milvia Johnson [facility] ([facility]), [address], [address] [place] [id number] 07/11 CBC w/ auto diff Alan % % 34.0 67.9 66.8 FINAL Milvia Robbing [facility] ([facility]), [address], [address] [facility] [address] 07/11 CBC w/ auto diff LY % % 21.8 53.1 19.6 Low FINAL Milvia Robbing [facility] ([facility]), [address], [address] [facility] [address] 07/11 CBC w/ auto diff MO % % 5.3 12.2 8.2 FINAL Milvia Robbing [facility] ([facility]), [address], [address] [facility] [address] 07/11 CBC w/ auto diff EO % % 0.8 7.0 4.8 FINAL Milviachaim Robbing [facility] ([facility]), [address], [address] [place] [address] 07/11 CBC w/ auto diff BA % % 0.2 1.2 0.6 [facility] [address], [address] [place] [address] 07/11 CBC w/ auto diff RBC 10*6/u L 4.63 6.08 3.97 Low [facility] [address], [address] [place] [address] 07/11 CBC w/ auto diff HGB g/dL 13.7 17.5 11.9 Low [facility] [address], [address] [place] [address] 07/11 CBC w/ auto diff HCT % 40.1 51.0 36.6 Low [facility] [address], [address] [place] [address] 07/11 CBC w/ auto diff MCV fL 79.0 92.2 92.2 FINAL [facility] [address], [address] [place] [address] 07/11 CBC w/ auto diff MCH pg 25.7 32.2 30.0 FINAL [facility] [address], [address] [place] [address] 07/11 CBC w/ auto diff MCHC g/dL 32.3 36.5 32.5 FINAL [facility]viachaim [facility]Mur[facility] ([facility] [address], [address] [place] [address] 07/11 CBC w/ auto diff RDW-C V, % % 11.6 14.4 13.6 FINAL [facility] [address], [address] [facility] [address] 07/11 CBC w/ auto diff PLT 10*3/u L 163.0 337.0 180 FINAL [facility] [address] [facility] [facility] [address] 07/11 PSA, total ng/mL < 0.04 FINAL [facility] ([facility]), [address] [place] [address] 07/11 CMP - Core Lab Sodiu m mmol/L 136.0 145.0 143 FINAL Milvia [facility] ([facility]), [address] [place], [place] [id number] 07/11 CMP - Core Lab Potas sium mmol/L 3.4 5.1 4.8 FINAL [facility] ([facility]), [address] [place], [place] [id number] 07/11 CMP - Core Lab Chlor naif mmol/L 98.0 107.0 105 FINAL [facility] ([facility]), [address] [place] [address] 07/11 CMP - Core Lab CO2 mmol/L 20.0 31.0 29.5 FINAL [facility] ([facility]), [address] [place] [address] [place] [address] 07/11 CMP - Core Lab Anion gap, mmol/ L mmol/L 4.0 15.0 8.5 FINAL Milvia Cezaring [facility] ([facility]), [address] [place] [address] [place] [address] 07/11 CMP - Core Lab BUN mg/dL 9.0 23.0 19 FINAL [facility] ([facility]), [address] [place] [address] 07/11 CMP - Core Lab Creat inine mg/dL 0.73 1.18 1.02 FINAL Milvia Liming [facility] ([facility]), [address] [place] [address] 07/11 CMP - Core Lab BUN/C reati nine ratio 0.0 25.0 18.6 FINAL [facility] ([facility]), [address] [place] [address] [place] [address] 07/11 CMP - Core Lab eGFR, mL/mi n/1.7 3 mL/min /1.73m >60.0 FINAL [facility] ([facility]), [address] [place] [address] [place] [address] 07/11 CMP - Core Lab Gluco se mg/dL 74.0 106.0 99 FINAL Milvia [facility] ([facility]), [address] [place] [address] [place] [address] 07/11 CMP - Core Lab Calci um mg/dL 8.7 10.6 10.1 FINAL Milvia [facility] ([facility]), [address] [place] [address] [place] [address] 07/11 CMP - Core Lab Album in g/dL 3.4 5.0 3.8 FINAL Milvia [facility] ([facility]), [address] [place] [address] [place] [address] 07/11 CMP - Core Lab Total prote in g/dL 5.7 8.2 6.6 FINAL Milvia [facility] ([facility]), [address] [place] [address] [place] [address] 07/11 CMP - Core Lab A/G ratio 1.0 2.0 1.4 [facility] [address] [place] [address] [place] [address] 07/11 CMP - Core Lab Alkal ine phosp hatas e U/L 46.0 116.0 36 Low [facility] [address] [place] [address] [place] [address] 07/11 CMP - Core Lab ALT/S GPT U/L 10.0 49.0 21 FINAL Milvia [facility] ([facility]), [address] [place] [address] [place] [address] 07/11 CMP - Core Lab AST/S GOT U/L 0.0 34.0 23 FINAL Milvia LimARH [facility] ([facility]), [address] [place] [address] [place] [address] 07/11 CMP - Core Lab Bilir ubin, total mg/dL 0.3 1.2 0.4 FINAL Milvia Johnson [facility] ([facility]), [address] [place] [address] [place] [address] 10/02 CMP - Core Lab Sodiu m mmol/L 136.0 145.0 140 FINAL Shayne [facility] ([facility]), [address] [place] [address] [place] [address] 10/02 CMP - Core Lab Potas sium mmol/L 3.4 5.1 4.3 FINAL Shayne [facility] ([facility]), [address] [place] [address] 10/02 CMP - Core Lab Chlor naif mmol/L 98.0 107.0 105 FINAL Shayne [facility] ([facility]), [address] [place] [address] 10/02 CMP - Core Lab CO2 mmol/L 20.0 31.0 25.1 FINAL Shayne [facility] ([facility]), [address] [place] [address] 10/02 CMP - Core Lab Anion gap, mmol/ L mmol/L 4.0 15.0 9.9 FINAL Shayne [facility] ([facility]), [address] [place] [address] [place] [address] 10/02 CMP - Core Lab BUN mg/dL 9.0 23.0 29 High FINAL Shayne [facility] ([facility]), [address] [place] [address] [place] [address] 10/02 CMP - Core Lab Creat inine mg/dL 0.73 1.18 1.07 FINAL [facility] ([facility]), [address] [place] [address] 10/02 CMP - Core Lab BUN/C reati nine ratio 0.0 25.0 27.1 High FINAL [facility] ([facility]), [address] [place] [address] 10/02 CMP - Core Lab eGFR, mL/mi n/1.7 3 mL/min /1.73m >60.0 FINAL [facility] ([facility]), [address] [place] [address] [place] [address] 10/02 CMP - Core Lab Gluco se mg/dL 74.0 106.0 93 FINAL [facility] ([facility]), [address] [place] [address] [place] [address] 10/02 CMP - Core Lab Calci um mg/dL 8.7 10.6 9.9 FINAL [facility] ([facility]), [address] [place] [address] [place] [address] 10/02 CMP - Core Lab Album in g/dL 3.4 5.0 4.1 FINAL [facility] ([facility]), [address] [place] [address] [place] [address] 10/02 CMP - Core Lab Total prote in g/dL 5.7 8.2 6.6 FINAL [facility] ([facility]), [address] [place] [address] [place] [address] 10/02 CMP - Core Lab A/G ratio 1.0 2.0 1.6 FINAL [facility] ([facility]), [address] [place] [address] [place] [address] 10/02 CMP - Core Lab Alkal ine phosp hatas e U/L 46.0 116.0 39 Low FINAL [facility] ([facility]), [address] [place] [address] [place] [address] 10/02 CMP - Core Lab ALT/S GPT U/L 10.0 49.0 22 FINAL [facility] ([facility]), [address] [place] [address] [place] [address] 10/02 CMP - Core Lab AST/S GOT U/L 0.0 34.0 22 FINAL [facility] ([facility]), [address] [place] [address] [place] [address] 10/02 CMP - Core Lab Bilir ubin, total mg/dL 0.3 1.2 0.4 FINAL [facility] ([facility]), [address] [place] [address] [place] [address] 10/02 CBC w/ auto diff WBC 10*3/u L 4.2 9.1 4.8 FINAL Shayne [facility] (E[facility]), [address], [address] [place], [place] [address] 10/02 CBC w/ auto diff Alan # (ANC) 10*3/u L 1.78 5.38 3.21 FINAL Shayne [facility] ([facility]), [address], [address] [place] [address] 10/02 CBC w/ auto diff LY # 10*3/u L 1.32 3.57 0.78 Low FINAL Shayne [facility] (T), [address], [address] [place] [address] 10/02 CBC w/ auto diff MO # 10*3/u L 0.3 0.82 0.54 FINAL [facility] ([facility]), [address], [address] [place] [address] 10/02 CBC w/ auto diff EO # 10*3/u lL 0.04 0.54 0.27 FINAL Shayne [facility] ([facility]), [address], [address] [place] [address] 10/02 CBC w/ auto diff BA # 10*3/u L 0.01 0.08 0.02 FINAL Shayne [facility] ([facility]), [address], [address] [place] [address] 10/02 CBC w/ auto diff Alan % % 34.0 67.9 66.6 FINAL Shayne [facility] ([facility]), [address], [address] [place] [address] 10/02 CBC w/ auto diff LY % % 21.8 53.1 16.2 Low FINAL [facility] (EGT), [address], [address] [place] [address] 10/02 CBC w/ auto diff MO % % 5.3 12.2 11.2 FINAL Shayne [facility] (T), [address], [address] [place] [address] 10/02 CBC w/ auto diff EO % % 0.8 7.0 5.6 FINAL [facility] (E[facility]), [address], [address] [place] [address] 10/02 CBC w/ auto diff BA % % 0.2 1.2 0.4 FINAL [facility] ([facility]), [address], [address] [place] [address] 10/02 CBC w/ auto diff RBC 10*6/u L 4.63 6.08 3.84 Low FINAL [facility] ([facility]), [address], [address] [place] [address] 10/02 CBC w/ auto diff HGB g/dL 13.7 17.5 11.4 Low FINAL [facility] (T), [address], [address] [place] [address] 10/02 CBC w/ auto diff HCT % 40.1 51.0 34.7 Low FINAL [facility] ([facility]), [address], [address] [place] [address] 10/02 CBC w/ auto diff MCV fL 79.0 92.2 90.4 FINAL [facility] ([facility]), [address], [address] [place] [address] 10/02 CBC w/ auto diff MCH pg 25.7 32.2 29.7 FINAL [facility] ([facility]), [address], [address] [place] [address] 10/02 CBC w/ auto diff MCHC g/dL 32.3 36.5 32.9 FINAL [facility] ([facility]), [address], [address] [place] [address] 10/02 CBC w/ auto diff RDW-C V, % % 11.6 14.4 13.7 FINAL [facility] (T), [address], [address] [place] [address] 10/02 CBC w/ auto diff PLT 10*3/u L 163.0 337.0 174 FINAL Shayne [facility] (EGT), [address], [address] [facility] [address] 10/02 PSA, total ng/mL < 0.04 FINAL Shayne [facility] ([facility]), [address] [facility] [address] Medications Date Name Route Dose Frequency Instructions [...] Insomnia Active Vital Signs Date Type Value 10/10/2022 Body Temperature 98.10 10/10/2022 Heart Beat 60.00 10/10/2022 Respiratory Rate 16.00 10/10/2022 Intravascular Systolic 130 10/10/2022 Intravascular Diastolic 70 10/10/2022 BSA 1.92 10/10/2022 Weight 180.80 10/10/2022 Height 64.00 10/10/2022 BMI 31.03 10/10/2022 Pain Scale 0.00 01/10/2023 Pain Scale 0.00 01/10/2023 BSA 1.91 01/10/2023 BMI 30.48 01/10/2023 Height 64.00 01/10/2023 Weight 177.60 01/10/2023 Intravascular Systolic 122 01/10/2023 Intravascular Diastolic 70 01/10/2023 Respiratory Rate 12.00 01/10/2023 Heart Beat 76.00 01/10/2023 Body Temperature 98.00 04/12/2023 BSA 1.90 04/12/2023 BMI 30.11 04/12/2023 Height 64.00 04/12/2023 Weight 175.40 04/12/2023 Body Temperature 98.30 04/12/2023 Intravascular Systolic 129 04/12/2023 Intravascular Diastolic 78 04/12/2023 Respiratory Rate 16.00 04/12/2023 Heart Beat 71.00 04/12/2023 Pain Scale 0.00 07/11/2023 Oxygen Saturation 96.00 07/11/2023 Heart Beat 82.00 07/11/2023 Body Temperature 97.90 07/11/2023 BSA 1.90 07/11/2023 Intravascular Systolic 136 07/11/2023 Intravascular Diastolic 75 07/11/2023 BMI 30.38 07/11/2023 Height 64.00 07/11/2023 Pain Scale 0.00 07/11/2023 Weight 177.00 07/11/2023 Respiratory Rate 16.00 10/11/2023 BMI 31.41 10/11/2023 Height 64.00 10/11/2023 Weight 183.00 10/11/2023 Pain Scale 2.00 10/11/2023 BSA 1.94 10/11/2023 Respiratory Rate 16.00 10/11/2023 Heart Beat 70.00 10/11/2023 Body Temperature 97.50 10/11/2023 Intravascular Systolic 154 10/11/2023 Intravascular Diastolic 71 01/11/2024 Body Temperature 98.00 01/11/2024 Heart Beat 76.00 01/11/2024 Respiratory Rate 16.00 01/11/2024 Intravascular Systolic 140 01/11/2024 Intravascular Diastolic 82 01/11/2024 Pain Scale 0.00 01/11/2024 Weight 173.60 01/11/2024 Height 64.00 01/11/2024 BMI 29.80 01/11/2024 BSA 1.89 04/11/2024 Intravascular Systolic 117 04/11/2024 Intravascular Diastolic [...] Note Print Location: Unknown Date/Time Printed: 10/11/2024 10:33 ([facility]) Patient: RICHI CRUZ Sex: Male : 1950 [...] questions or problems, Accompanied By-Self, Discharge-Ambulatory, Discharge Time-0:30 Entered By Rachel Ashley RN on 10:18 Medication Administration : Incident to: Shayne Castellanos MD Leuprolide D1 Q3M Hormone Therapy Leuprolide IM, 22.5 mg intramuscularly every 3 months, Allow Substitution GIVEN: 22.5 mg Pharmacy plan: Dispense/Waste: 22.5/0 mg Amount in mL: 1.5 Pharmacy dispense: [place]: [id number] Dispense/Waste: 22.5/0 mg Given Dose/Discard: 22.5/0 mg Admin Details: Injection Location: Left-Dorsogluteal Time: 10:26 Double Checked By: Rachel Ashley RN on 10/02/2024 10:25 and Aziza Gay RN on 10/02/2024 10:25 * Nurse Note for: 11-JUL-24 [facility] Nurse Note Print Location: Unknown Date/Time Printed: 10/11/2024 10:33 ([facility]) Patient: RICHI CURZ Sex: Male : 1950 Date of Service: [...] Note Print Location: Unknown Date/Time Printed: 10/11/2024 10:33 ([facility]) Patient: RICHI CRUZ Sex: Male : 1950 [...] Pharmacy plan: Dispense/Waste: 22.5/0 mg Pharmacy dispense: [facility]: [id number] Dispense/Waste: 22.5/0 mg Given Dose/Discard: 22.5/0 mg Admin Details: Injection Location: Right-Dorsogluteal, Comments: x 1 Time: 10:15 Double Checked By: Aislinn Blair RN on 04/11/2024 10:06 and Edie Blanco RN on 04/11/2024 10:06 * Nurse Note for: 11-JAN-24 [facility] Nurse Note Print Location: Unknown Date/Time Printed: 10/11/2024 10:33 ([facility]) Patient: RICHI CRUZ Sex: Male : 1950 [...] Pharmacy plan: Dispense/Waste: 22.5/0 mg Pharmacy dispense: [facility]: [id number] Dispense/Waste: 22.5/0 mg Given Dose/Discard: 22.5/0 mg Admin Details: Injection Location: Right-Dorsogluteal, Comments: x 1 Time: 10:03 Double Checked By: Edie Blanco RN on 01/11/2024 10:03 and Trang Dukes RN on 01/11/2024 10:03 * Nurse Note for: 11-OCT-23 [facility] Nurse Note Print Location: Unknown Date/Time Printed: 10/11/2024 10:33 ([facility]) Patient: RICHI CRUZ Sex: Male : 1950 [...] Pharmacy plan: Dispense/Waste: 22.5/0 mg Pharmacy dispense: [facility]: [id number] Dispense/Waste: 22.5/0 mg Given Dose/Discard: 22.5/0 mg Admin Details: Injection Location: Right-Dorsogluteal, Comments: Injection x 1. Time: 11:30 Double Checked By: Aziza Gay RN on 10/11/2023 11:28 and Emily Lujan RN on 10/11/2023 11:30 * Nurse Note for: 11-JUL-23 [facility] Nurse Note Print Location: Unknown Date/Time Printed: 10/11/2024 10:33 ([facility]) Patient: RICHI CRUZ Sex: Male : 1950 [...] Pharmacy plan: Dispense/Waste: 22.5/0 mg Pharmacy dispense: [facility]: [id number] Dispense/Waste: 22.5/0 mg Given Dose/Discard: 22.5/0 mg Admin Details: Injection Location: Right-Dorsogluteal Time: 10:20 Double Checked By: Trang Dukes RN on 07/11/2023 10:05 and Edie Blanco RN on 07/11/2023 11:01 * Nurse Note for: 12-APR-23 [facility] Nurse Note Print Location: Unknown Date/Time Printed: 10/11/2024 10:33 ([facility]) Patient: RICHI CRUZ Sex: Male : 1950 [...] Pharmacy plan: Dispense/Waste: 22.5/0 mg Pharmacy dispense: [facility]: [id number] Dispense/Waste: 22.5/0 mg Given Dose/Discard: 22.5/0 mg Admin Details: Injection Location: Right-Dorsogluteal Time: 09:15 Double Checked By: Lily Raphael RN on 04/12/2023 09:27 and Emily Lujan RN on 04/12/2023 09:33 * Nurse Note for: 10-JAN-23 [facility] Nurse Note Print Location: Unknown Date/Time Printed: 10/11/2024 10:33 ([facility]) Patient: RICHI CRUZ Sex: Male : 1950 [...] the treatment. Entered By Marlen Lee on :17 Patient Assessment : Positive results Assessment : [...] Bleeding . Entered By Marlen Lee on :17 Medication Administration : Incident to: Shayne Castellanos MD Leuprolide D1 Q3M Hormone Therapy Leuprolide IM, 22.5 mg intramuscularly every 3 months, Allow Substitution GIVEN: 22.5 mg Pharmacy plan: Dispense/Waste: 22.5/0 mg Pharmacy dispense: [facility]: [id number] Dispense/Waste: 22.5/0 mg Given Dose/Discard: 22.5/0 mg Admin Details: Injection Location: Right-Dorsogluteal, Comments: injection x1 Time: 11:14 Double Checked By: Denisse Harris RN on 01/10/2023 11:11 and Marlen Lee on 01/10/2023 11:18 * Nurse Note for: 10-OCT-22 [facility] Nurse Note Print Location: Unknown Date/Time Printed: 10/11/2024 10:33 ([facility]) Patient: RICHI CRUZ Sex: Male : 1950 [...] treatment. Entered By Edie Blanco RN on 10:23 Patient Assessment : Positive results Assessment : [...] . Entered By Edie Blanco RN on 10:23 Medication Administration : Incident to: Catrachito Boss MD Leuprolide D1 Q3M Hormone Therapy Leuprolide IM, 22.5 mg intramuscularly every 3 months, Allow Substitution GIVEN: 22.5 mg Pharmacy plan: Dispense/Waste: 22.5/0 mg Pharmacy dispense: [facility]: [id number] Dispense/Waste: 22.5/0 mg Given Dose/Discard: 22.5/0 mg Admin Details: Injection Location: Right-Dorsogluteal, Comments: x 1 IM Time: 10:23 Checked By: Edie Blanco RN on 10/10/2022 10:25
--- OUTSIDE RECORDS SUMMARY | 2024-10-11 10:33 | XMS_ITS ---
Author Name Interface, [id number] lity Address [address] [place] [address] [facility] Address [address] [place] [address] Allergies and Adverse Reactions Plan Reason for Visit Encounters Diagnostic Results Medications Problems Vital Signs Notes Section
--- OUTSIDE RECORDS SUMMARY | 2024-10-11 10:33 | XMS_ITS | Encounter Summary ---
Author Organization [facility] Address [address] [place] [address] Care Team Providers Care Fisher Spear Name Role Phone Unavailable Primary Care Provider Unavailabl e Encounter Details Date Type Department Care Team (Late st Contact Info) Description 04/09/2019 Lab Requisition [facility] Department of Laboratory Services [address] [place] [phone] Charli Rey M.D. Clinical Labs [address] [place] [address], [address] [place], [place] [id number] Lisa Arreola, LEAD MECHANICAL ENGINEER-[facility] [address] [place] [address] Social History Tobacco Use Types Packs/Day Years [...] Date/Time Associated Diagnosis Comments PSA TOTAL Routine 04/09/2019 10:31 AM EST documented in this encounter Results * PSA Total (04/09/2019 10:31 AM EST) Prostate Specific Antigen <0.04 <=4.00 ng/mL 04/09/2019 7:40 PM EST [facility] Blood specimen (specimen) 04/09/2019 10:31 AM EST 04/09/2019 7:04 PM EST Narrative [facility] - 04/09/2019 7:40 PM EST A new method is in use, effective 17 May 2018; results vary between patients, but on average, elevated values with the new assay will be about 20% lower than results from assays prior to 17 May 2018. us Lisa Arreola LEAD MECHANICAL ENGINEER-RN TRANSPLANT CHEMISTRY ORDERABLES Fin al Result [facility] [address] [place] [address], [place] documented in this encounter Visit Diagnoses Not on filedocumented in this encounter
--- OUTSIDE RECORDS SUMMARY | 2024-10-11 10:35 | XMS_ITS ---
Author Name Interface, [id number] Address [address] [place] [address] [facility] Address [address] [place] [address] Allergies and Adverse Reactions Medication/Group Name Reaction [...] 15 MIN 10/11/2023 APPOINTMENT PORT FLUSH 15 GA N 10/11/2023 APPOINTMENT LAB 15 MIN 10/11/2023 [...] APPOINTMENT Chemo C20D1 Leup rolide D1 Q3M 07/09/2020 APPOINTMENT RTC MD chemo 07/09/2020 APPOINTMENT Lab 07/09/2020 APPOINTMENT INJECTION 15 MIN 07/09/2020 APPOINTMENT LAB 15 MIN 07/09/2020 APPOINTMENT OV 15 MIN 07/09/2020 APPOINTMENT Chemo C19D1 Leup rolide D1 Q3M 04/09/2020 APPOINTMENT RTC WORSHIP DIRECTOR/PA chemo 04/09/2020 APPOINTMENT Lab 04/09/2020 APPOINTMENT Chemo C18D1 Leup rolide D1 Q3M 04/09/2020 APPOINTMENT 3MTH KEVIN AND INJ 04/09/2020 APPOINTMENT 3MTH KEVIN AND INJ 04/09/2020 APPOINTMENT 3MTH KEVIN AND INJ 04/07/2020 APPOINTMENT Chemo C18D1 Leup rolide D1 Q3M 01/09/2020 APPOINTMENT 3MO MD FU INJ AN D LABS 01/09/2020 APPOINTMENT 3MO MD FU INJ AN D LABS 01/09/2020 APPOINTMENT 3MO MD FU INJ AN D LABS 01/09/2020 APPOINTMENT Chemo C17D1 Leup rolide D1 Q3M 01/09/2020 APPOINTMENT Lab 01/07/2020 APPOINTMENT Chemo C17D1 Leup rolide D1 Q3M 10/10/2019 APPOINTMENT Chemo C16D1 Leup rolide D1 Q3M 10/10/2019 APPOINTMENT 3 month 10/10/2019 APPOINTMENT 3 month 10/08/2019 APPOINTMENT Chemo C16D1 Leup rolide D1 Q3M 07/09/2019 APPOINTMENT Lab 07/09/2019 APPOINTMENT Chemo C15D1 Leup rolide D1 Q3M 07/09/2019 APPOINTMENT MD and inj 07/09/2019 APPOINTMENT MD and inj 07/09/2019 APPOINTMENT MD and inj 07/02/2019 APPOINTMENT MD + TX 07/02/2019 APPOINTMENT MD + TX 05/09/2019 APPOINTMENT RTC MD chemo 04/09/2019 APPOINTMENT MD and inj 04/09/2019 APPOINTMENT MD and inj 04/09/2019 APPOINTMENT MD and inj 04/09/2019 APPOINTMENT Lab 04/09/2019 APPOINTMENT Chemo C14D1 Leup rolide D1 Q3M 04/09/2019 APPOINTMENT MD AND INJ 04/09/2019 APPOINTMENT MD AND INJ 04/09/2019 APPOINTMENT MD AND INJ 04/09/2019 LABORDER PSA, total 04/09/2019 LABORDER CBC w/ auto diff 04/09/2019 LABORDER CMP 07/09/2019 LABORDER PSA, total 07/09/2019 LABORDER CBC w/ auto diff 07/09/2019 LABORDER CMP - Vitros 250 R 10/10/2019 LABORDER CBC w/ auto diff 10/10/2019 LABORDER PSA, total 10/10/2019 LABORDER CMP - Vitros 250 R 01/09/2020 LABORDER PSA, total 01/09/2020 LABORDER CMP - Vitros 250 R 01/09/2020 LABORDER CBC w/ auto diff 04/09/2020 LABORDER CMP - Vitros 250 R 04/09/2020 LABORDER CBC w/ auto diff 04/09/2020 LABORDER PSA, total 07/09/2020 LABORDER CBC w/ auto diff 07/09/2020 LABORDER CMP - Core Lab 07/09/2020 LABORDER PSA, total 10/08/2020 LABORDER CBC w/ auto diff 10/08/2020 [...] Visit OV 15 MIN Encounters Date Name 04/09/2019 Anemia 04/09/2019 Depression 04/09/2019 Essential hypertensi on (disorder) 04/09/2019 Headache 04/09/2019 Prostate cancer in s itu 04/09/2019 Secondary malignant neoplasm of bone (disorder) Immunizations Date Name Route Dose Instructions Refusal Reason Stat us Flu vaccine - Adult Diagnostic Results Date Type Test Units Lower Limit Upper Limit Result Flag Comments Status Ordered By Specimen Source Lab Address 04/09 PSA, total ng/mL <0.04 FINAL [facility], [address] 04/09 CBC w/ auto diff WBC 10*3/u L 4.2 9.1 7.1 FINAL [facility] B&Whole Blood [facility] ([facility]), [address], [address] [place] [address] 04/09 CBC w/ auto diff Alan # (ANC) 10*3/u L 1.78 5.38 5.15 FINAL [facility] B&Whole Blood [facility] ([facility]), [address], [address] [place] [address] 04/09 CBC w/ auto diff LY # 10*3/u L 1.32 3.57 0.96 Low FINAL [facility] B&Whole Blood [facility] ([facility]), [address], [address] [place] [address] 04/09 CBC w/ auto diff MO # 10*3/u L 0.3 0.82 0.66 FINAL [facility] B&Whole Blood [facility] ([facility]), [address], [address] [place] [address] 04/09 CBC w/ auto diff EO # 10*3/u lL 0.04 0.54 0.28 FINAL [facility] B&Whole Blood [facility] ([facility]), [address], [address] [place] [address] 04/09 CBC w/ auto diff BA # 10*3/u L 0.01 0.08 0.03 FINAL [facility] B&Whole Blood [facility] ([facility]), [address], [address] [place] [address] 04/09 CBC w/ auto diff Alan % % 34.0 67.9 72.7 High FINAL [facility] B&Whole Blood [facility] ([facility]), [address], [address] [place] [address] 04/09 CBC w/ auto diff LY % % 21.8 53.1 13.6 Low FINAL [facility] B&Whole Blood [facility] ([facility]), [address], [address] [place] [address] 04/09 CBC w/ auto diff MO % % 5.3 12.2 9.3 FINAL [facility] B&Whole Blood [facility] ([facility]), [address], [address] [place] [address] 04/09 CBC w/ auto diff EO % % 0.8 7.0 4.0 FINAL [facility] B&Whole Blood [facility] (T), [address], [address] [place] [address] 04/09 CBC w/ auto diff BA % % 0.2 1.2 0.4 FINAL [facility] B&Whole Blood [facility] ([facility]), [address], [address] [place] [address] 04/09 CBC w/ auto diff RBC 10*6/u L 4.63 6.08 4.40 Low FINAL [facility] B&Whole Blood [facility] ([facility]), [address], [address] [place] [address] 04/09 CBC w/ auto diff HGB g/dL 13.7 17.5 12.9 Low FINAL [facility] B&Whole Blood [facility] ([facility]), [address], [address] [place] [address] 04/09 CBC w/ auto diff HCT % 40.1 51.0 38.3 Low FINAL [facility] B&Whole Blood [facility] ([facility]), [address], [address] [place] [address] 04/09 CBC w/ auto diff MCV fL 79.0 92.2 87.0 FINAL [facility] B&Whole Blood [facility] ([facility]), [address], [address] [place] [address] 04/09 CBC w/ auto diff MCH pg 25.7 32.2 29.3 FINAL [facility] B&Whole Blood [facility] ([facility]), [address], [address] [place] [address] 04/09 CBC w/ auto diff MCHC g/dL 32.3 36.5 33.7 FINAL [facility] B&Whole Blood [facility] ([facility]), [address], [address] [place] [address] 04/09 CBC w/ auto diff RDW-C V, % % 11.6 14.4 13.6 FINAL [facility] B&Whole Blood [facility] ([facility]), [address], [address] [place] [id number] 04/09 CBC w/ auto diff PLT 10*3/u L 163.0 337.0 182.0 FINAL [facility] B&Whole Blood [facility] ([facility]), [address], [address] [place], [place] [address] 04/09 CMP - Vitro s 250R Album in g/dL 3.5 5.0 4.1 FINAL [facility] S[facility]Serum [facility] ([facility]), [address] [place] [address] 04/09 CMP - Vitro s 250R Alkal ine phosp hatas e U/L 38.0 126.0 48 FINAL [facility] S&Serum [facility] ([facility]), [address] [place] [address] 04/09 CMP - Vitro s 250R ALT/S GPT U/L 27 FINAL [facility] S&Serum [facility] ([facility]), [address] [place] [address] 04/09 CMP - Vitro s 250R AST/S GOT U/L 17.0 59.0 33 FINAL [facility] S&Serum [facility] ([facility]), [address] [place] [address] 04/09 CMP - Vitro s 250R Bilir ubin, total mg/dL 0.2 1.3 0.4 FINAL [facility] S&Serum [facility] ([facility]), [address] [place] [address] 04/09 CMP - Vitro s 250R BUN mg/dL 9.0 20.0 18 FINAL [facility] S&Serum [facility] ([facility]), [address] [place] [address] 04/09 CMP - Vitro s 250R BUN/C reati nine ratio 19.8 FINAL [facility] S&Serum [facility] ([facility]), [address] [place] [address] 04/09 CMP - Vitro s 250R Calci um mg/dL 8.4 10.2 9.7 FINAL [facility] S&Serum [facility] ([facility]), [address] [place] [address] 04/09 CMP - Vitro s 250R Chlor naif mmol/L 98.0 107.0 103 FINAL [facility] S&Serum [facility] ([facility]), [address] [place], [place] [id number] 04/09 CMP - Vitro s 250R Creat inine mg/dL 0.66 1.25 0.91 FINAL [facility] S&Serum [facility] ([facility]), [address] [place], [place] [id number] 04/09 CMP - Vitro s 250R GFR non-A frica n Ameri can, estim ated mL/min /1.73m >60.0 FINAL [facility] S&Serum [facility] ([facility]), [address] [place], [place] [id number] 04/09 CMP - Vitro s 250R GFR Afric an Ameri can, estim ated mL/min /1.73m >60.0 FINAL [facility] S&Serum [facility] ([facility]), [address] [place], [place] [id number] 04/09 CMP - Vitro s 250R CO2 mmol/L 22.0 30.0 26 FINAL [facility] S&Serum [facility] ([facility]), [address] [place], [place] [id number] 04/09 CMP - Vitro s 250R Gluco se mg/dL 74.0 106.0 104 FINAL [facility] S&Serum [facility] ([facility]), [address] [place], [place] [id number] 04/09 CMP - Vitro s 250R Potas sium mmol/L 3.5 5.1 4.1 FINAL [facility] S&Serum [facility] ([facility]), [address] [place], [place] [id number] 04/09 CMP - Vitro s 250R Total prote in g/dL 6.3 8.2 7.1 FINAL [facility] S&Serum [facility] ([facility]), [address] [place], [place] [id number] 04/09 CMP - Vitro s 250R A/G ratio 1.0 2.0 1.4 FINAL [facility] S&Serum [facility] ([facility]), [address] [place], [place] [id number] 04/09 CMP - Vitro s 250R Sodiu m mmol/L 137.0 145.0 140 FINAL [facility] S&Serum [facility] ([facility]), [facility] [place] [address] 04/09 CMP - Vitro s 250R Anion gap, mmol/ L mmol/L 4.0 15.0 11.0 FINAL [facility] S&Serum [facility] ([facility]), [facility] [place] [address] 07/08 CBC w/ auto diff WBC 10*3/u L 4.2 9.1 4.6 FINAL Joan Kolish B&Whole Blood [facility] ([facility]), [address], [address] [place] [address] 07/08 CBC w/ auto diff Alan # (ANC) 10*3/u L 1.78 5.38 3.19 FINAL Joan Kolish B&Whole Blood [facility] ([facility]), [address], [address] [place] [address] 07/08 CBC w/ auto diff LY # 10*3/u L 1.32 3.57 0.78 Low FINAL Joan Kolish B&Whole Blood [facility] (T), [address], Suite [facility] [place] [facility] 07/08 CBC w/ auto diff MO # 10*3/u L 0.3 0.82 0.47 FINAL Joan Kolish B&Whole Blood [facility] (T), [address], Suite [facility] [place] [facility] 07/08 CBC w/ auto diff EO # 10*3/u lL 0.04 0.54 0.13 FINAL Joan Kolish B&Whole Blood [facility] (T), [address], [place] [facility] [place] [place] [address] 07/08 CBC w/ auto diff BA # 10*3/u L 0.01 0.08 0.02 FINAL Joan Kolish B&Whole Blood [facility] (T), [address], [place] [facility] [place] [address] 07/08 CBC w/ auto diff Alan % % 34.0 67.9 69.6 High FINAL Joan Kolish B&Whole Blood [facility] ([facility]), [address], [place] [facility] [place] [address] 07/08 CBC w/ auto diff LY % % 21.8 53.1 17.0 Low FINAL Joan Kolish B&Whole Blood [facility] (T), [address], Suite [facility] [place] [facility] 07/08 CBC w/ auto diff MO % % 5.3 12.2 10.2 FINAL Jaon Kolish B&Whole Blood [facility] ([facility]), [address], Suite [facility] [place] [facility] 07/08 CBC w/ auto diff EO % % 0.8 7.0 2.8 FINAL Joan Kolish B&Whole Blood [facility] ([facility]), [address], Suite [facility] [place] [facility] 07/08 CBC w/ auto diff BA % % 0.2 1.2 0.4 FINAL Joan Kolish B&Whole Blood [facility] ([facility]), [address], [address] [place] [address] 07/08 CBC w/ auto diff RBC 10*6/u L 4.63 6.08 4.33 Low FINAL Joan Kolish B&Whole Blood [facility] ([facility]), [address], [address] [place] [address] 07/08 CBC w/ auto diff HGB g/dL 13.7 17.5 12.7 Low FINAL Joan Kolish B&Whole Blood [facility] (T), [address], [address] [place] [address] 07/08 CBC w/ auto diff HCT % 40.1 51.0 37.3 Low FINAL Joan Kolish B&Whole Blood [facility] (T), [address], Suite [facility] [place] [facility] 07/08 CBC w/ auto diff MCV fL 79.0 92.2 86.1 FINAL Joan Kolish B&Whole Blood [facility] (T), [address], Suite [facility] [place] [facility] 07/08 CBC w/ auto diff MCH pg 25.7 32.2 29.3 FINAL Joan Kolish B&Whole Blood [facility] ([facility]), [address], [address] [place] [address] 07/08 CBC w/ auto diff MCHC g/dL 32.3 36.5 34.0 FINAL [facility] Blood [facility] ([facility]), [address], [address] [place] [address] 07/08 CBC w/ auto diff RDW-C V, % % 11.6 14.4 13.2 [facility] ([facility]), [address], [address] [place] [address] 07/08 CBC w/ auto diff PLT 10*3/u L 163.0 337.0 176.0 FINAL [facility] B[facility]Whole Blood [facility] ([facility]), [address], [address] [place] [address] 07/08 CMP - Vitro s 250R Album in g/dL 3.5 5.0 4.4 FINAL [facility]um [facility] ([facility]), [address] [place] [address] 07/08 CMP - Vitro s 250R Alkal ine phosp hatas e U/L 38.0 126.0 39 FINAL [facility] S[facility]um [facility] ([facility]), [address] [place] [address] 07/08 CMP - Vitro s 250R ALT/S GPT U/L 25 FINAL [facility] S[facility]Serum [facility] ([facility]), [address] [place] [address] 07/08 CMP - Vitro s 250R AST/S GOT U/L 17.0 59.0 30 FINAL Joan Kolish S&Serum [facility] ([facility]), [address] [place] [address] 07/08 CMP - Vitro s 250R Bilir ubin, total mg/dL 0.2 1.3 0.5 FINAL [facility] S[facility]Serum [facility] ([facility]), [address] [place] [address] 07/08 CMP - Vitro s 250R BUN mg/dL 9.0 20.0 28 High FINAL [facility] S[facility]Serum [facility] ([facility]), [address] [place] [address] 07/08 CMP - Vitro s 250R BUN/C reati nine ratio 27.5 High FINAL [facility] S&Serum [facility] ([facility]), [address] [place] [address] 07/08 CMP - Vitro s 250R Calci um mg/dL 8.4 10.2 9.8 FINAL [facility]&Serum [facility] ([facility]), [address] [place] [address] 07/08 CMP - Vitro s 250R Chlor naif mmol/L 98.0 107.0 102 FINAL [facility] S&Serum [facility] ([facility]), [address] [place] [address] 07/08 CMP - Vitro s 250R Creat inine mg/dL 0.66 1.25 1.02 FINAL [facility] S&Serum [facility] ([facility]), [address] [place] [address] 07/08 CMP - Vitro s 250R GFR non-A frica n Ameri can, estim ated mL/min /1.73m >60.0 FINAL [facility] S&Serum [facility] ([facility]), [address] [place] [address] 07/08 CMP - Vitro s 250R GFR Afric an Ameri can, estim ated mL/min /1.73m >60.0 FINAL [facility]&Serum [facility] ([facility]), [address] [place] [address] 07/08 CMP - Vitro s 250R CO2 mmol/L 22.0 30.0 23 FINAL [facility] S&Serum [facility] ([facility]), [address] [place] [address] 07/08 CMP - Vitro s 250R Gluco se mg/dL 74.0 106.0 117 High FINAL [facility] S&Serum [facility] ([facility]), [address] [place], [place] [address]/08 CMP - Vitro s 250R Potas sium mmol/L 3.5 5.1 4.1 FINAL [facility] S&Serum [facility] ([facility]), [address] [place] [address] 07/08 CMP - Vitro s 250R Total prote in g/dL 6.3 8.2 7.3 FINAL [facility] S&Serum [facility] ([facility]), [address] [place] [address] [place] [address] 07/08 CMP - Vitro s 250R A/G ratio 1.0 2.0 1.5 FINAL [facility] S&Serum [facility] ([facility]), [address] [place] [address] [place] [address] 07/08 CMP - Vitro s 250R Sodiu m mmol/L 137.0 145.0 136 Low FINAL [facility] S&Serum [facility] ([facility]), [address] [place] [address] [place] [address] 07/08 CMP - Vitro s 250R Anion gap, mmol/ L mmol/L 4.0 15.0 11.0 FINAL [facility] S&Serum [facility] ([facility]), [address] [place] [address] [place] [address] 07/08 PSA, total ng/mL <0.04 FINAL [facility] Serum [facility], [address] 10/09 CMP - Vitro s 250R Album in g/dL 3.5 5.0 4.4 FINAL Shayne Almonte S&Serum [facility] ([facility]), [address] [place] [address] [place] [address] 10/09 CMP - Vitro s 250R Alkal ine phosp hatas e U/L 38.0 126.0 57 FINAL Shayne [facility] S&Serum [facility] ([facility]), [address] [place] [address] [place] [address] 10/09 CMP - Vitro s 250R ALT/S GPT U/L 29 FINAL Shayne [facility] S&Serum [facility] ([facility]), [address] [place] [address] [place] [address] 10/09 CMP - Vitro s 250R AST/S GOT U/L 17.0 59.0 34 FINAL Shayne [facility] S&Serum [facility] ([facility]), [address] [place] [address] [place] [address] 10/09 CMP - Vitro s 250R Bilir ubin, total mg/dL 0.2 1.3 0.5 FINAL Shayne Castellanos S&Serum [facility] ([facility]), [address] [place] [address] [place] [address] 10/09 CMP - Vitro s 250R BUN mg/dL 9.0 20.0 19 FINAL Shayne [facility]montes S&Serum [facility] ([facility]), [address] [place] [address] [place] [address] 10/09 CMP - Vitro s 250R BUN/C reati nine ratio 20.7 FINAL Shayne Almontes S&Serum [facility] ([facility]), [address] [place] [address] [place] [address] 10/09 CMP - Vitro s 250R Calci um mg/dL 8.4 10.2 9.8 FINAL Shayne Almontes S&Serum [facility] ([facility]), [address] [place] [address] [place] [address] 10/09 CMP - Vitro s 250R Chlor naif mmol/L 98.0 107.0 107 FINAL Shayne Almontes S&Serum [facility] ([facility]), [address] [place], [place] [id number] 10/09 CMP - Vitro s 250R Creat inine mg/dL 0.66 1.25 0.92 FINAL Shayne Castellanos S&Serum [facility] ([facility]), [address] [place], [place] [id number] 10/09 CMP - Vitro s 250R GFR non-A frica n Ameri can, estim ated mL/min /1.73m >60.0 FINAL Shayne Castellanos S&Serum [facility] ([facility]), [address] [place], [place] [id number] 10/09 CMP - Vitro s 250R GFR Afric an Ameri can, estim ated mL/min /1.73m >60.0 FINAL Shayne Castellanos S&Serum [facility] ([facility]), [address] [place] [address] 10/09 CMP - Vitro s 250R CO2 mmol/L 22.0 30.0 22 FINAL Shayne Castellanos S&Serum [facility] ([facility]), [address] [place] [address] [place] [address] 10/09 CMP - Vitro s 250R Gluco se mg/dL 74.0 106.0 151 High FINAL Shayne Almontes S&Serum [facility] ([facility]), [address] [place] [address] [place] [address] 10/09 CMP - Vitro s 250R Potas sium mmol/L 3.5 5.1 3.7 FINAL Shayne Almontes S&Serum [facility] ([facility]), [address] [place] [address] 10/09 CMP - Vitro s 250R Total prote in g/dL 6.3 8.2 7.3 FINAL Shayne Castellanos S&Serum [facility] ([facility]), [address] [place] [address] [place] [address] 10/09 CMP - Vitro s 250R A/G ratio 1.0 2.0 1.5 FINAL Shayne Castellanos S&Serum [facility] ([facility]), [address] [place] [address] [place] [address] 10/09 CMP - Vitro s 250R Sodiu m mmol/L 137.0 145.0 139 FINAL Shayne Castellanos S&Serum [facility] ([facility]), [address] [place] [address] [place] [address] 10/09 CMP - Vitro s 250R Anion gap, mmol/ L mmol/L 4.0 15.0 10.0 FINAL Shayne Castellanos S&Serum [facility] ([facility]), [address] [place] [address] [place] [address] 10/09 PSA, total ng/mL <0.04 FINAL Shayne Castellanos Serum [facility], [address] 10/09 CBC w/ auto diff WBC 10*3/u L 4.2 9.1 4.8 FINAL Shayne Castellanos B&Whole Blood [facility] ([facility]), [address], [address] [place] [address] 10/09 CBC w/ auto diff Alan # (ANC) 10*3/u L 1.78 5.38 3.48 FINAL Shayne Castellanos B&Whole Blood [facility] ([facility]), [address], [address] [place] [address] 10/09 CBC w/ auto diff LY # 10*3/u L 1.32 3.57 0.78 Low FINAL Shayne Castellanos B&Whole Blood [facility] ([facility]), [address], [address] [place] [address] 10/09 CBC w/ auto diff MO # 10*3/u L 0.3 0.82 0.38 FINAL Shayne Castellanos B&Whole Blood [facility] ([facility]), [address], [address] [place] [address] 10/09 CBC w/ auto diff EO # 10*3/u lL 0.04 0.54 0.18 FINAL Shayne Castellanos B&Whole Blood [facility] ([facility]), [address], [place] [facility] [place] [address] 10/09 CBC w/ auto diff BA # 10*3/u L 0.01 0.08 0.02 FINAL Shayne Almontes B&Whole Blood [facility] ([facility]), [address], [address] [facility] [place] [facility] 10/09 CBC w/ auto diff Alan % % 34.0 67.9 71.9 High FINAL Shayne Almontes B&Whole Blood [facility] ([facility]), [address], [address] [facility] [place] [facility] 10/09 CBC w/ auto diff LY % % 21.8 53.1 16.1 Low FINAL Shayne Almontes B&Whole Blood [facility] ([facility]), [address], [address] [place] [address] 10/09 CBC w/ auto diff MO % % 5.3 12.2 7.9 FINAL Shayne Almontes B&Whole Blood [facility] ([facility]), [address], [address] [place] [address] 10/09 CBC w/ auto diff EO % % 0.8 7.0 3.7 FINAL Shayne Almontes B&Whole Blood [facility] ([facility]), [address], [address] [facility] [place] [facility] 10/09 CBC w/ auto diff BA % % 0.2 1.2 0.4 FINAL Shayne Almontes B&Whole Blood [facility] ([facility]), [address], [address] [place] [address] 10/09 CBC w/ auto diff RBC 10*6/u L 4.63 6.08 4.36 Low FINAL Shayne Almontes B&Whole Blood [facility] ([facility]), [address] [place], [address] [facility] [place] [facility] 10/09 CBC w/ auto diff HGB g/dL 13.7 17.5 12.9 Low FINAL Shayne Almontes B&Whole Blood [facility] ([facility]), [address] [place], [address] [facility] [place] [facility] 10/09 CBC w/ auto diff HCT % 40.1 51.0 37.6 Low FINAL Shayne Almontes B&Whole Blood [facility] ([facility]), [address] [place], [address] [place] [address] 10/09 CBC w/ auto diff MCV fL 79.0 92.2 86.2 FINAL Shayne Almontes B&Whole Blood [facility] ([facility]), [address] [place], [place] [facility] [place] [address] 10/09 CBC w/ auto diff MCH pg 25.7 32.2 29.6 FINAL Shayne Almontes B&Whole Blood [facility] ([facility]), [address] [place], [place] [facility] [place] [address] 10/09 CBC w/ auto diff MCHC g/dL 32.3 36.5 34.3 FINAL Shayne Almontes B&Whole Blood [facility] ([facility]), [address] [place], [place] [facility] [place] [address] 10/09 CBC w/ auto diff RDW-C V, % % 11.6 14.4 13.3 FINAL Shayne Almontes B&Whole Blood [facility] ([facility]), [address] [place], [place] [facility] [place] [address] 10/09 CBC w/ auto diff PLT 10*3/u L 163.0 337.0 194.0 FINAL Shayne Almontes B&Whole Blood [facility] ([facility]), [address], [address] [place] [address] 10/09 Depre ssion gabe brandt (proc edure ) 10 Criti gigi High # 9 answered at level 1 01/08 CBC w/ auto diff WBC 10*3/u L 4.2 9.1 5.0 FINAL Ovesen B&Whole Blood [facility] ([facility]), [address] [place], [place] [facility] [place] [address] 01/08 CBC w/ auto diff Alan # (ANC) 10*3/u L 1.78 5.38 3.34 FINAL Ovesen B&Whole Blood [facility] ([facility]), [address] [place], [place] [facility] [place] [address] 01/08 CBC w/ auto diff LY # 10*3/u L 1.32 3.57 0.93 Low FINAL Ovesen B&Whole Blood [facility] ([facility]), [address], [address] [place] [address] 01/08 CBC w/ auto diff MO # 10*3/u L 0.3 0.82 0.52 FINAL Ovesen B&Whole Blood [facility] ([facility]), [address] [place], [place] [facility] [place] [address] 01/08 CBC w/ auto diff EO # 10*3/u lL 0.04 0.54 0.18 FINAL Ovesen B&Whole Blood [facility] (T), [address] [place], [place] [facility] [place] [address] 01/08 CBC w/ auto diff BA # 10*3/u L 0.01 0.08 0.01 FINAL Ovesen B&Whole Blood [facility] (T), [address] [place], [address] [facility] [place] [facility] 01/08 CBC w/ auto diff Alan % % 34.0 67.9 67.1 FINAL Ovesen B&Whole Blood [facility] (T), [address] [place], [address] [facility] [place] [facility] 01/08 CBC w/ auto diff LY % % 21.8 53.1 18.7 Low FINAL Ovesen B&Whole Blood [facility] (T), [address] [place], [address] [facility] [place] [facility] 01/08 CBC w/ auto diff MO % % 5.3 12.2 10.4 FINAL Ovesen B&Whole Blood [facility] (T), [address] [place], [address] [facility] [place] [facility] 01/08 CBC w/ auto diff EO % % 0.8 7.0 3.6 FINAL Ovesen B&Whole Blood [facility] (T), [address] [place], [place] [facility] [place] [address] 01/08 CBC w/ auto diff BA % % 0.2 1.2 0.2 FINAL Ovesen B&Whole Blood [facility] (T), [address] [place], [address] [facility] [place] [facility] 01/08 CBC w/ auto diff RBC 10*6/u L 4.63 6.08 4.39 Low FINAL Ovesen B&Whole Blood [facility] (T), [address] [place], [place] [facility] [place] [address] 01/08 CBC w/ auto diff HGB g/dL 13.7 17.5 13.1 Low FINAL Ovesen B&Whole Blood [facility] (T), [address] [place], [address] [place] [address] 01/08 CBC w/ auto diff HCT % 40.1 51.0 38.7 Low FINAL Ovesen B&Whole Blood [facility] (T), [address], [address] [place] [address] 01/08 CBC w/ auto diff MCV fL 79.0 92.2 88.2 FINAL Ovesen B&Whole Blood [facility] ([facility]), [address], [address] [place] [address] 01/08 CBC w/ auto diff MCH pg 25.7 32.2 29.8 FINAL Ovesen B&Whole Blood [facility] ([facility]), [address], [address] [place] [address] 01/08 CBC w/ auto diff MCHC g/dL 32.3 36.5 33.9 FINAL Ovesen B&Whole Blood [facility] ([facility]), [address], [address] [place] [address] 01/08 CBC w/ auto diff RDW-C V, % % 11.6 14.4 13.4 FINAL Ovesen B&Whole Blood [facility] (T), [address], [address] [place] [address] 01/08 CBC w/ auto diff PLT 10*3/u L 163.0 337.0 58.0 Low FINAL Ovesen B&Whole Blood [facility] ([facility]), [address] [facility] [address] [place] [address] 01/08 PSA, total ng/mL <0.04 FINAL Ovesen [facility]), [address] [place] [address] 01/08 CMP - Core Lab Album in g/dL 3.4 5.0 4.2 FINAL Ovesen [facility] ([facility]), [address] [place] [address] 01/08 CMP - Core Lab Alkal ine phosp hatas e U/L 46.0 116.0 64 FINAL Ovesen [facility] ([facility]), [address] [place] [address] 01/08 CMP - Core Lab ALT/S GPT U/L 10.0 49.0 38 FINAL Ovesen [facility] ([facility]), [address] [place] [address] 01/08 CMP - Core Lab AST/S GOT U/L 0.0 34.0 27 FINAL Ovesen [facility] ([facility]), [address] [place] [address] 01/08 CMP - Core Lab Calci um mg/dL 8.7 10.4 9.3 FINAL Ovesen [facility] ([facility]), [address] [place] [address] 01/08 CMP - Core Lab Chlor naif mmol/L 98.0 107.0 103 FINAL Ovesen [facility] ([facility]), [address] [place] [address] 01/08 CMP - Core Lab CO2 mmol/L 20.0 31.0 23.8 FINAL Ovesen [facility] ([facility]), [address] [place] [address] 01/08 CMP - Core Lab Creat inine mg/dL 0.6 1.1 0.93 FINAL Ovesen [facility] ([facility]), [address] [place] [address] 01/08 CMP - Core Lab GFR non-A frica n Ameri can, estim ated mL/min /1.73m >60.0 FINAL Ovesen [facility] ([facility]), [address] [place] [address] 01/08 CMP - Core Lab GFR Afric an Ameri can, estim ated mL/min /1.73m >60.0 FINAL Ovesen [facility] ([facility]), [address] [place] [address] 01/08 CMP - Core Lab Gluco se mg/dL 74.0 106.0 111 High FINAL Ovesen [facility] ([facility]), [address] [place] [address] 01/08 CMP - Core Lab Potas sium mmol/L 3.5 5.1 4.2 FINAL Ovesen [facility] ([facility]), [address] [place] [address] 01/08 CMP - Core Lab Sodiu m mmol/L 136.0 145.0 140 FINAL Ovesen [facility] ([facility]), [address] [place] [address] 01/08 CMP - Core Lab Anion gap, mmol/ L mmol/L 4.0 15.0 13.2 FINAL Ovesen [facility] ([facility]), [address] [place] [address] 01/08 CMP - Core Lab Bilir ubin, total mg/dL 0.3 1.2 0.4 FINAL Ovesen [facility] ([facility]), [address] [place], [place] [id number] 01/08 CMP - Core Lab Total prote in g/dL 5.7 8.2 6.5 FINAL Ovesen [facility] ([facility]), [address] [place], [place] [id number] 01/08 CMP - Core Lab A/G ratio 1.0 2.0 1.8 FINAL Ovesen [facility] ([facility]), [address] [place], [place] [id number] 01/08 CMP - Core Lab BUN mg/dL 9.0 23.0 20 FINAL Ovesen [facility] ([facility]), [address] [place], [place] [id number] 01/08 CMP - Core Lab BUN/C reati nine ratio 0.0 25.0 21.5 FINAL Ovesen [facility] ([facility]), [address] [place] [address] 04/09 CMP - Core Lab Album in g/dL 3.4 5.0 4.3 FINAL Shayne [facility] S[facility]um [facility] ([facility]), [address] [place] [address] [place] [address] 04/09 CMP - Core Lab Alkal ine phosp hatas e U/L 46.0 116.0 61 FINAL Shayne Castellanos [facility] ([facility]), [address] [place] [address] [place] [address] 04/09 CMP - Core Lab ALT/S GPT U/L 10.0 49.0 32 FINAL Shayne Almontes [facility] ([facility]), [address] [place] [address] [place] [address] 04/09 CMP - Core Lab AST/S GOT U/L 0.0 34.0 28 FINAL Shayne Almonte [facility] ([facility]), [address] [place] [address] [place] [address] 04/09 CMP - Core Lab Calci um mg/dL 8.7 10.4 10.6 High FINAL Shayne Almonte [facility] ([facility]), [address] [place] [address] [place] [address] 04/09 CMP - Core Lab Chlor naif mmol/L 98.0 107.0 104 FINAL Shayne Almonte [facility] ([facility]), [address] [place] [address] [place] [address] 04/09 CMP - Core Lab CO2 mmol/L 20.0 31.0 28.1 FINAL Shayne Almonte [facility] ([facility]), [address] [place] [address] [place] [address] 04/09 CMP - Core Lab Creat inine mg/dL 0.6 1.1 0.89 FINAL Shayne Almonte [facility] ([facility]), [address] [place] [address] [place] [address] 04/09 CMP - Core Lab GFR non-A frica n Ameri can, estim ated mL/min /1.73m >60.0 FINAL Shayne Almonte [facility] ([facility]), [address] [place] [address] [place] [address] 04/09 CMP - Core Lab GFR Afric an Ameri can, estim ated mL/min /1.73m >60.0 FINAL Shayne [facility] S[facility] ([facility]), [address] [place] [address] [place] [address] 04/09 CMP - Core Lab Gluco se mg/dL 74.0 106.0 98 FINAL Shayne Almonte [facility] ([facility]), [address] [place] [address] [place] [address] 04/09 CMP - Core Lab Potas sium mmol/L 3.5 5.1 4.3 FINAL Shayne Castellanos [facility] ([facility]), [address] [place] [address] [place] [address] 04/09 CMP - Core Lab Sodiu m mmol/L 136.0 145.0 139 FINAL Shayne [facility] S[facility]um [facility] ([facility]), [address] [place] [address] [place] [address] 04/09 CMP - Core Lab Anion gap, mmol/ L mmol/L 4.0 15.0 6.9 FINAL Shayne Almonte [facility] ([facility]), [address] [place] [address] [place] [address] 04/09 CMP - Core Lab Bilir ubin, total mg/dL 0.3 1.2 0.4 FINAL Shayne Almonte [facility] ([facility]), [address] [place] [address] [place] [address] 04/09 CMP - Core Lab Total prote in g/dL 5.7 8.2 6.9 FINAL Shayne Almonte [facility] ([facility]), [address] [place] [address] [place] [address] 04/09 CMP - Core Lab A/G ratio 1.0 2.0 1.7 FINAL Shayne Castellanos [facility] ([facility]), [address] [place] [address] [place] [address] 04/09 CMP - Core Lab BUN mg/dL 9.0 23.0 21 FINAL Shayne Almonte [facility] ([facility]), [address] [place] [address] [place] [address] 04/09 CMP - Core Lab BUN/C reati nine ratio 0.0 25.0 23.6 FINAL Shayne [facility] S[facility]um [facility] ([facility]), [address] [place] [address] [place] [address] 04/09 PSA, total ng/mL <0.04 FINAL Shayne [facility] S[facility]um [facility] ([facility]), [address] [place] [address] [place] [address] 04/09 CBC w/ auto diff WBC 10*3/u L 4.2 9.1 5.6 FINAL Shayne Herms B&Whole Blood [facility] ([facility]), [address], [address] [place] [address] 04/09 CBC w/ auto diff Alan # (ANC) 10*3/u L 1.78 5.38 3.83 FINAL Shayne Almontes B&Whole Blood [facility] (T), [address], [address] [place] [address] 04/09 CBC w/ auto diff LY # 10*3/u L 1.32 3.57 0.90 Low FINAL Shayne Herms B&Whole Blood [facility] (T), [address], [address] [place] [address] 04/09 CBC w/ auto diff MO # 10*3/u L 0.3 0.82 0.62 FINAL Shayne Almontes B&Whole Blood [facility] (T), [address], [address] [place] [address] 04/09 CBC w/ auto diff EO # 10*3/u lL 0.04 0.54 0.18 FINAL Shayne Almontes B&Whole Blood [facility] (T), [address], [address] [place] [address] 04/09 CBC w/ auto diff BA # 10*3/u L 0.01 0.08 0.02 FINAL Shayne Almontes B&Whole Blood [facility] (T), [address], [address] [place] [address] 04/09 CBC w/ auto diff Alan % % 34.0 67.9 69.0 High FINAL Shayne Herms B&Whole Blood [facility] ([facility]), [address], [address] [place] [address] 04/09 CBC w/ auto diff LY % % 21.8 53.1 16.2 Low FINAL Shayne Herms B&Whole Blood [facility] (T), [address], [address] [place] [address] 04/09 CBC w/ auto diff MO % % 5.3 12.2 11.2 FINAL Shayne Herms B&Whole Blood [facility] (T), [address], [address] [place] [address] 04/09 CBC w/ auto diff EO % % 0.8 7.0 3.2 FINAL Shayne Castellanos B&Whole Blood [facility] (T), [address], [address] [place] [address] 04/09 CBC w/ auto diff BA % % 0.2 1.2 0.4 FINAL Shayne Castellanos B&Whole Blood [facility] ([facility]), [address], [address] [place] [address] 04/09 CBC w/ auto diff RBC 10*6/u L 4.63 6.08 4.57 Low FINAL Shayne Almontes B&Whole Blood [facility] ([facility]), [address], [address] [place] [address] 04/09 CBC w/ auto diff HGB g/dL 13.7 17.5 13.5 Low FINAL Shayne Castellanos B&Whole Blood [facility] ([facility]), [address], [address] [place] [address] 04/09 CBC w/ auto diff HCT % 40.1 51.0 39.5 Low FINAL Shayne Castellanos B&Whole Blood [facility] ([facility]), [address], [address] [place] [address] 04/09 CBC w/ auto diff MCV fL 79.0 92.2 86.4 FINAL Shayne Castellanos B&Whole Blood [facility] ([facility]), [address], [address] [place] [address] 04/09 CBC w/ auto diff MCH pg 25.7 32.2 29.5 FINAL Shayne Castellanos B&Whole Blood [facility] ([facility]), [address], [address] [place] [address] 04/09 CBC w/ auto diff MCHC g/dL 32.3 36.5 34.2 FINAL Shayne Castellanos B&Whole Blood [facility] ([facility]), [address], [address] [place] [address] 04/09 CBC w/ auto diff RDW-C V, % % 11.6 14.4 13.3 FINAL Shayne Castellanos B&Whole Blood [facility] ([facility]), [address], [address] [facility] [address] 04/09 CBC w/ auto diff PLT 10*3/u L 163.0 337.0 184.0 FINAL Shayne Castellanos B&Whole Blood [facility] ([facility]), [address] [facility], [address] [facility] [address] 07/09 CMP - Core Lab Sodiu m mmol/L 136.0 145.[address] [facility] ([facility]), [address] [place] [address] 07/09 CMP - Core Lab Potas sium mmol/L 3.5 5.1 [address] [facility] ([facility]), [address] [place] [address] 07/09 CMP - Core Lab Chlor naif mmol/L 98.0 107.0 108 High [facility] ([facility]), [address] [place] [address] 07/09 CMP - Core Lab CO2 mmol/L 20.0 31.0 27.1 FINAL Ovesen [facility] ([facility]), [address] [place] [address] [place] [address] 07/09 CMP - Core Lab Anion gap, mmol/ L mmol/L 4.0 15.0 5.9 FINAL Ovesen [facility] ([facility]), [address] [place] [address] 07/09 CMP - Core Lab BUN mg/dL 9.0 23.0 25 High FINAL Ovesen [facility] ([facility]), [address] [place] [address] 07/09 CMP - Core Lab BUN/C reati nine ratio 0.0 25.0 26.3 High FINAL Ovesen [facility] ([facility]), [address] [place] [address] 07/09 CMP - Core Lab Creat inine mg/dL 0.6 1.1 0.95 FINAL [facility] ([facility]), [address] [place] [address] 07/09 CMP - Core Lab GFR non-A frica n Ameri can, estim ated mL/min /1.73m >60.0 FINAL [facility] ([facility]), [address] [place] [address] 07/09 CMP - Core Lab GFR Afric an Ameri can, estim ated mL/min /1.73m >60.0 FINAL [facility] ([facility]), [address] [place] [address] 07/09 CMP - Core Lab Gluco se mg/dL 74.0 106.0 106 FINAL [facility] ([facility]), [address] [place] [address] 07/09 CMP - Core Lab Calci um mg/dL 8.7 10.6 10.2 FINAL [facility] ([facility]), [address] [place] [address] 07/09 CMP - Core Lab Album in g/dL 3.4 5.0 3.9 FINAL [facility] ([facility]), [address] [place] [address] 07/09 CMP - Core Lab Total prote in g/dL 5.7 8.2 6.6 FINAL [facility] ([facility]), [address] [place] [address] 07/09 CMP - Core Lab A/G ratio 1.0 2.0 1.4 FINAL [facility] ([facility]), [address] [place] [address] 07/09 CMP - Core Lab Alkal ine phosp hatas e U/L 46.0 116.0 47 FINAL [facility] ([facility]), [address] [place] [address] 07/09 CMP - Core Lab ALT/S GPT U/L 10.0 49.0 18 FINAL Ovesen [facility] ([facility]), [address] [facility] [address] 07/09 CMP - Core Lab AST/S GOT U/L 0.0 34.0 21 FINAL Ovesen [facility] ([facility]), [facility] [address] 07/09 CMP - Core Lab Bilir ubin, total mg/dL 0.3 1.2 0.5 FINAL Ovesen [facility] ([facility]), [facility] [address] 07/09 PSA, total ng/mL 0.04 FINAL Ovesen [facility] ([facility]), [address] [place] [address] 07/09 CBC w/ auto diff WBC 10*3/u L 4.2 9.1 4.8 FINAL [facility] ([facility]), [address], [address] [place], [place] [id number] 07/09 CBC w/ auto diff Alan # (ANC) 10*3/u L 1.78 5.38 3.39 FINAL [facility] ([facility]), [address], [address] [place] [address] 07/09 CBC w/ auto diff LY # 10*3/u L 1.32 3.57 0.71 Low FINAL [facility] ([facility]), [address], [address] [place] [address] 07/09 CBC w/ auto diff MO # 10*3/u L 0.3 0.82 0.57 FINAL [facility] ([facility]), [address], [address] [facility] [address] 07/09 CBC w/ auto diff EO # 10*3/u lL 0.04 0.54 0.11 [facility] [facility] ([facility]), [address], [address] [place] [address] 07/09 CBC w/ auto diff BA # 10*3/u L 0.01 0.08 0.02 FINAL [facility] ([facility]), [address], [address] [place] [address] 07/09 CBC w/ auto diff Alan % % 34.0 67.9 70.6 High FINAL [facility] ([facility]), [address], [address] [place] [address] 07/09 CBC w/ auto diff LY % % 21.8 53.1 14.8 Low FINAL [facility] ([facility]), [address], [address] [place] [address] 07/09 CBC w/ auto diff MO % % 5.3 12.2 11.9 FINAL [facility] ([facility]), [address], [address] [place] [address] 07/09 CBC w/ auto diff EO % % 0.8 7.0 2.3 FINAL [facility] ([facility]), [address], [address] [place] [address] 07/09 CBC w/ auto diff BA % % 0.2 1.2 0.4 FINAL [facility] ([facility]), [address], [address] [place] [address] 07/09 CBC w/ auto diff RBC 10*6/u L 4.63 6.08 4.43 Low FINAL [facility] ([facility]), [address], [address] [place] [address] 07/09 CBC w/ auto diff HGB g/dL 13.7 17.5 12.7 Low FINAL Ovesen [facility] ([facility]), [address], [address] [place] [address] 07/09 CBC w/ auto diff HCT % 40.1 51.0 38.6 Low FINAL [facility] ([facility]), [address], [address] [place] [address] 07/09 CBC w/ auto diff MCV fL 79.0 92.2 87.1 FINAL Lisa Arreola [facility] ([facility]), [address], [address] [facility] [address] 07/09 CBC w/ auto diff MCH pg 25.7 32.2 28.7 FINAL [facility] ([facility]), [address], [address] [facility] [address] 07/09 CBC w/ auto diff MCHC g/dL 32.3 36.5 32.9 FINAL [facility] [address], [address] [facility] [address] 07/09 CBC w/ auto diff RDW-C V, % % 11.6 14.4 13.5 FINAL [facility] ([facility]), [address], [address] [facility] [address] 07/09 CBC w/ auto diff PLT 10*3/u L 163.0 337.0 165.0 FINAL [facility] ([facility]), [address], [address] [facility] [address] 10/08 CMP - Core Lab Sodiu m mmol/L 136.0 145.0 140 FINAL [facility] ([facility]), [address] [place] [id number] 10/08 CMP - Core Lab Potas sium mmol/L 3.5 5.1 4.2 FINAL [facility] ([facility]), [address] [place] [id number] 10/08 CMP - Core Lab Chlor naif mmol/L 98.0 107.0 106 FINAL [facility] ([facility]), [address] [place] [address] 04774 10/08 CMP - Core Lab CO2 mmol/L 20.0 31.0 25.7 FINAL [facility] ([facility]), [address] [place] [address] 70726 10/08 CMP - Core Lab Anion gap, mmol/ L mmol/L 4.0 15.0 8.3 FINAL [facility] ([facility]), [address] [place] [address] 80538 10/08 CMP - Core Lab BUN mg/dL 9.0 23.0 27 High FINAL [facility] ([facility]), [address] [place] [address] 80575 10/08 CMP - Core Lab BUN/C reati nine ratio 0.0 25.0 28.1 High FINAL [facility] ([facility]), [address] [place] [address] 98012 10/08 CMP - Core Lab Creat inine mg/dL 0.6 1.1 0.96 FINAL [facility] ([facility]), [address] [place] [address] 75550 10/08 CMP - Core Lab GFR non-A frica n Ameri can, estim ated mL/min /1.73m >60.0 FINAL [facility] ([facility]), [address] [place] [address] 94749 10/08 CMP - Core Lab GFR Afric an Ameri can, estim ated mL/min /1.73m >60.0 FINAL [facility] ([facility]), [address] [place] [address] 12499 10/08 CMP - Core Lab Gluco se mg/dL 74.0 106.0 105 FINAL [facility] ([facility]), [address] [place] [address] 83492 10/08 CMP - Core Lab Calci um mg/dL 8.7 10.6 10.0 FINAL [facility] ([facility]), [address] [place] [address] 45599 10/08 CMP - Core Lab Album in g/dL 3.4 5.0 4.0 FINAL [facility] ([facility]), [address] [place] [address] 49381 10/08 CMP - Core Lab Total prote in g/dL 5.7 8.2 6.7 FINAL [facility] ([facility]), [address] [place] [address] 25774 10/08 CMP - Core Lab A/G ratio 1.0 2.0 1.5 FINAL [facility] ([facility]), [address] [place] [address] 26037 10/08 CMP - Core Lab Alkal ine phosp hatas e U/L 46.0 116.0 47 FINAL [facility] ([facility]), [address] [place] [address] 47556 10/08 CMP - Core Lab ALT/S GPT U/L 10.0 49.0 19 FINAL [facility] ([facility]), [address] [place] [address] 35543 10/08 CMP - Core Lab AST/S GOT U/L 0.0 34.0 23 FINAL [facility] ([facility]), [address] [place] [address] 91277 10/08 CMP - Core Lab Bilir ubin, total mg/dL 0.3 1.2 0.4 FINAL [facility] ([facility]), [address] [place] [address] 12660 10/08 CBC w/ auto diff WBC 10*3/u L 4.2 9.1 4.6 FINAL [facility] ([facility]), [address] [place] [address] 42209 10/08 CBC w/ auto diff Alan # (ANC) 10*3/u L 1.78 5.38 3.30 FINAL [facility] ([facility]), [address], [address] [place] [address] 14451 10/08 CBC w/ auto diff LY # 10*3/u L 1.32 3.57 0.66 Low FINAL [facility] ([facility]), [address], [address] [place] [address] 59769 10/08 CBC w/ auto diff MO # 10*3/u L 0.3 0.82 0.47 FINAL [facility] ([facility]), [address], [address] [place] [address] 35782 10/08 CBC w/ auto diff EO # 10*3/u lL 0.04 0.54 0.18 FINAL [facility]), [address], [address] [place] [address] 10/08 CBC w/ auto diff BA # 10*3/u L 0.01 0.08 0.03 FINAL [facility] ([facility]), [address], [address] [place] [address] 10/08 CBC w/ auto diff Alan % % 34.0 67.9 71.2 High FINAL [facility] ([facility]), [address], [address] [place] [address] 10/08 CBC w/ auto diff LY % % 21.8 53.1 14.2 Low FINAL [facility] ([facility]), [address], [address] [place] [address] 10/08 CBC w/ auto diff MO % % 5.3 12.2 10.1 FINAL [facility] ([facility]), [address], [address] [place] [address] 10/08 CBC w/ auto diff EO % % 0.8 7.0 3.9 FINAL [facility] ([facility]), [address], [address] [place] [address] 10/08 CBC w/ auto diff BA % % 0.2 1.2 0.6 FINAL [facility] ([facility]), [address], [address] [place] [address] 10/08 CBC w/ auto diff RBC 10*6/u L 4.63 6.08 4.24 Low FINAL [facility] ([facility]), [address], [address] [place] [address] 10/08 CBC w/ auto diff HGB g/dL 13.7 17.5 12.3 Low FINAL [facility] ([facility]), [address], [address] [place] [address] 10/08 CBC w/ auto diff HCT % 40.1 51.0 36.9 Low FINAL [facility] ([facility]), [address], [address] [facility] [address] 10/08 CBC w/ auto diff MCV fL 79.0 92.2 87.0 FINAL [facility] ([facility]), [address], [address] [place] [address] 01580 10/08 CBC w/ auto diff MCH pg 25.7 32.2 29.0 FINAL [facility] ([facility]), [address], [address] [facility] 15[address] 10/08 CBC w/ auto diff MCHC g/dL 32.3 36.5 33.3 FINAL [facility] ([facility]), [address], [address] [facility] 21689 10/08 CBC w/ auto diff RDW-C V, % % 11.6 14.4 14.4 FINAL [facility] ([facility]), [address], [address] [facility] 13226 10/08 CBC w/ auto diff PLT 10*3/u L 163.0 337.0 175.0 FINAL [facility] ([facility]), [address], [address] [facility] 18590 10/08 PSA, total ng/mL 0.04 FINAL [facility] ([facility]), [facility] [address] 01/07 PSA, total ng/mL 0.04 FINAL Supriya Wild [facility] ([facility]), [address] [place] [address] 02237 01/07 CMP - Core Lab Sodiu m mmol/L 136.0 145.0 138 FINAL [facility]), [address] [place] [address] 49938 01/07 CMP - Core Lab Potas sium mmol/L 3.5 5.1 5.1 FINAL [facility] Verdini [facility] ([facility]), [address] [place] [address] [place] [address] 01/07 CMP - Core Lab Chlor naif mmol/L 98.0 107.0 103 FINAL Supriya barth [facility] ([facility]), [address] [place] [address] [place] [address] 01/07 CMP - Core Lab CO2 mmol/L 20.0 31.0 21.9 FINAL Supriya [facility] ([facility]), [address] [place] [address] [place] [address] 01/07 CMP - Core Lab Anion gap, mmol/ L mmol/L 4.0 15.0 13.1 FINAL Supriya barth [facility] ([facility]), [address] [place] [address] [place] [address] 01/07 CMP - Core Lab BUN mg/dL 9.0 23.0 14 FINAL Supriya [facility]th [facility] ([facility]), [address] [place] [address] 77352 01/07 CMP - Core Lab BUN/C reati nine ratio 0.0 25.0 14.1 FINAL Supriya [facility] ([facility]), [address] [place] [address] [place] [address] 01/07 CMP - Core Lab Creat inine mg/dL 0.6 1.1 0.99 FINAL Supriya [facility]th [facility] ([facility]), [address] [place] [address] [place] [address] 01/07 CMP - Core Lab GFR non-A frica n Ameri can, estim ated mL/min /1.73m >60.0 FINAL Supriya barth [facility] ([facility]), [address] [place] [address] [place] [address] 01/07 CMP - Core Lab GFR Afric an Ameri can, estim ated mL/min /1.73m >60.0 FINAL Supriya barth [facility] ([facility]), [address] [place] [address] [place] [address] 01/07 CMP - Core Lab Gluco se mg/dL 74.0 106.0 103 FINAL Supriya barth [facility] ([facility]), [address] [place] [address] [place] [address] 01/07 CMP - Core Lab Calci um mg/dL 8.7 10.6 9.7 FINAL Supriya barth [facility] ([facility]), [address] [place] [address] [place] [address] 01/07 CMP - Core Lab Album in g/dL 3.4 5.0 4.1 FINAL Supriya barth [facility] ([facility]), [address] [place] [address] [place] [address] 01/07 CMP - Core Lab Total prote in g/dL 5.7 8.2 7.1 FINAL Supriya barth [facility] ([facility]), [address] [place] [address] [place] [address] 01/07 CMP - Core Lab A/G ratio 1.0 2.0 1.4 FINAL Supriya barth [facility] ([facility]), [address] [place] [address] [place] [address] 01/07 CMP - Core Lab Alkal ine phosp hatas e U/L 46.0 116.0 46 FINAL Supriya barth [facility] ([facility]), [address] [place] [address] [place] [address] 01/07 CMP - Core Lab ALT/S GPT U/L 10.0 49.0 35 FINAL Supriya barth [facility] ([facility]), [address] [place] [address] [place] [address] 01/07 CMP - Core Lab AST/S GOT U/L 0.0 34.0 57 High FINAL Supriya barth [facility] ([facility]), [address] [place] [address] [place] [address] 01/07 CMP - Core Lab Bilir ubin, total mg/dL 0.3 1.2 0.4 FINAL Supriya barth [facility] ([facility]), [address] [place] [address] [place] [address] 01/07 CBC w/ auto diff WBC 10*3/u L 4.2 9.1 5.0 FINAL Supriya barth [facility] ([facility]), [address], [address] [place] [address] 01/07 CBC w/ auto diff Alan # (ANC) 10*3/u L 1.78 5.38 3.57 FINAL Supriya barth [facility] [address], [address] [place] [address] 01/07 CBC w/ auto diff LY # 10*3/u L 1.32 3.57 0.83 Low FINAL Supriya barth [facility] [address], [address] [place] [address] 01/07 CBC w/ auto diff MO # 10*3/u L 0.3 0.82 0.42 FINAL Supriya barth [facility] [address], [address] [place] [address] 01/07 CBC w/ auto diff EO # 10*3/u lL 0.04 0.54 0.17 FINAL Supriya barth [facility] [address], [address] [place] [address] 01/07 CBC w/ auto diff BA # 10*3/u L 0.01 0.08 0.02 FINAL Supriya barth [facility] ([facility]), [address], [address] [place] [address] 01/07 CBC w/ auto diff Alan % % 34.0 67.9 71.2 High FINAL [facility] [address], [address] [place] [address] 01/07 CBC w/ auto diff LY % % 21.8 53.1 16.6 Low FINAL Supriya barth [facility] [address], [address] [place] [address] 01/07 CBC w/ auto diff MO % % 5.3 12.2 8.4 FINAL Supriya barth [facility] ([facility]), [address], [address] [place] [address] 11/04 /2021 CBC w/ auto diff EO % % 0.8 7.0 3.4 FINAL Supriya [facility]th [facility] ([facility]), [address], [address] [place] [address] 01/07 CBC w/ auto diff BA % % 0.2 1.2 0.4 FINAL Supriya barth [facility] ([facility]), [address], [address] [place] [address] 01/07 CBC w/ auto diff RBC 10*6/u L 4.63 6.08 4.12 Low FINAL Supriya barth [facility] ([facility]), [address], [address] [place] [address] 01/07 CBC w/ auto diff HGB g/dL 13.7 17.5 12.0 Low FINAL Supriya barth [facility] ([facility]), [address], [address] [place] [address] 01/07 CBC w/ auto diff HCT % 40.1 51.0 36.4 Low FINAL Supriya barth [facility] ([facility]), [address], [address] [place] [address] 01/07 CBC w/ auto diff MCV fL 79.0 92.2 88.3 FINAL Supriya barth [facility] ([facility]), [address], [address] [place] [address] 01/07 CBC w/ auto diff MCH pg 25.7 32.2 29.1 FINAL Supriya barth [facility] ([facility]), [address], [address] [place] [address] 01/07 CBC w/ auto diff MCHC g/dL 32.3 36.5 33.0 FINAL Supriya barth [facility] ([facility]), [address], [address] [place] [address] 01/07 CBC w/ auto diff RDW-C V, % % 11.6 14.4 14.3 FINAL Supriya barth [facility] ([facility]), [address], [address] [place], [place] [id number] 01/07 CBC w/ auto diff PLT 10*3/u L 163.0 337.0 162.0 Low FINAL Supriya barth [facility] ([facility]), [address], [address] [facility] [address] 04/08 CMP - Core Lab Sodiu m mmol/L 136.0 145.0 141 FINAL [facility] ([facility]), [address] [place] [address] 41239 04/08 CMP - Core Lab Potas sium mmol/L 3.5 5.1 4.0 FINAL [facility] ([facility]), [address] [place] [address] 57463 04/08 CMP - Core Lab Chlor naif mmol/L 98.0 107.0 108 High FINAL [facility] ([facility]), [address] [place] [address] 13389 04/08 CMP - Core Lab CO2 mmol/L 20.0 31.0 23.4 FINAL [facility] ([facility]), [address] [place] [address] 71175 04/08 CMP - Core Lab Anion gap, mmol/ L mmol/L 4.0 15.0 9.6 FINAL [facility] ([facility]), [address] [place] [address] 28967 04/08 CMP - Core Lab BUN mg/dL 9.0 23.0 19 FINAL [facility] ([facility]), [address] [place] [address] 83794 04/08 CMP - Core Lab BUN/C reati nine ratio 0.0 25.0 22.1 FINAL [facility] ([facility]), [address] [place] [address] 90507 04/08 CMP - Core Lab Creat inine mg/dL 0.6 1.1 0.86 FINAL [facility] ([facility]), [address] [place] [address] 25754 04/08 CMP - Core Lab GFR non-A frica n Ameri can, estim ated mL/min /1.73m >60.0 FINAL [facility] ([facility]), [address] [place] [address] 28675 04/08 CMP - Core Lab GFR Afric an Ameri can, estim ated mL/min /1.73m >60.0 FINAL [facility] ([facility]), [address] [place] [address] 34927 04/08 CMP - Core Lab Gluco se mg/dL 74.0 106.0 122 High FINAL [facility] ([facility]), [address] [place] [address] 49829 04/08 CMP - Core Lab Calci um mg/dL 8.7 10.6 9.6 FINAL [facility] ([facility]), [address] [place] [address] 29814 04/08 CMP - Core Lab Album in g/dL 3.4 5.0 3.9 FINAL [facility] ([facility]), [address] [place] [address] 42177 04/08 CMP - Core Lab Total prote in g/dL 5.7 8.2 6.5 FINAL [facility] ([facility]), [address] [place] [address] 19597 04/08 CMP - Core Lab A/G ratio 1.0 2.0 1.5 FINAL [facility] ([facility]), [address] [place] [address] [place] [address] 04/08 CMP - Core Lab Alkal ine phosp hatas e U/L 46.0 116.0 45 Low FINAL [facility] ([facility]), [address] [place] [address] [place] [address] 04/08 CMP - Core Lab ALT/S GPT U/L 10.0 49.0 24 FINAL [facility] ([facility]), [address] [place] [address] [place] [address] 04/08 CMP - Core Lab AST/S GOT U/L 0.0 34.0 26 FINAL [facility] ([facility]), [address] [place] [address] 60196 04/08 CMP - Core Lab Bilir ubin, total mg/dL 0.3 1.2 0.4 FINAL [facility] ([facility]), [address] [facility] [address] 04/08 PSA, total ng/mL 0.04 FINAL [facility] ([facility]), [facility] [address] 04/08 CBC w/ auto diff WBC 10*3/u L 4.2 9.1 4.8 FINAL [facility] ([facility]), [address], [address] [place], [place] [address] 04/08 CBC w/ auto diff Alan # (ANC) 10*3/u L 1.78 5.38 3.23 FINAL [facility] ([facility]), [address], [address] [place] [address] 04/08 CBC w/ auto diff LY # 10*3/u L 1.32 3.57 0.86 Low FINAL [facility] ([facility]), [address], [address] [place], [place] [id number] 04/08 CBC w/ auto diff MO # 10*3/u L 0.3 0.82 0.48 FINAL [facility] ([facility]), [address], [address] [place] [address] 04/08 CBC w/ auto diff EO # 10*3/u lL 0.04 0.54 0.20 FINAL [facility] ([facility]), [address], [address] [place], [place] [address] 04/08 CBC w/ auto diff BA # 10*3/u L 0.01 0.08 0.04 FINAL [facility] ([facility]), [address], [address] [place] [address] 04/08 CBC w/ auto diff Alan % % 34.0 67.9 67.1 FINAL [facility] ([facility]), [address], [address] [place] [address] 04/08 CBC w/ auto diff LY % % 21.8 53.1 17.9 Low FINAL [facility] ([facility]), [address], [address] [place] [address] 04/08 CBC w/ auto diff MO % % 5.3 12.2 10.0 FINAL [facility] ([facility]), [address], [address] [place] [address] 04/08 CBC w/ auto diff EO % % 0.8 7.0 4.2 FINAL [facility] ([facility]), [address], [address] [place] [address] 04/08 CBC w/ auto diff BA % % 0.2 1.2 0.8 FINAL [facility] (T), [address], [address] [place] [address] 04/08 CBC w/ auto diff RBC 10*6/u L 4.63 6.08 4.22 Low FINAL [facility] ([facility]), [address], [address] [place] [address] 04/08 CBC w/ auto diff HGB g/dL 13.7 17.5 12.3 Low FINAL [facility] (T), [address], [address] [place] [address] 04/08 CBC w/ auto diff HCT % 40.1 51.0 36.7 Low FINAL [facility] ([facility]), [address], [address] [place] [address] 04/08 CBC w/ auto diff MCV fL 79.0 92.2 87.0 FINAL [facility] ([facility]), [address], [address] [place] [address] 04/08 CBC w/ auto diff MCH pg 25.7 32.2 29.1 FINAL [facility] (T), [address], [address] [place] [address] 04/08 CBC w/ auto diff MCHC g/dL 32.3 36.5 33.5 FINAL Shayne Castellanos [facility] ([facility]), [address], [address] [facility] [address] 04/08 CBC w/ auto diff RDW-C V, % % 11.6 14.4 13.8 FINAL Shayne Castellanos [facility] (T), [address], [address] [facility] [address] 04/08 CBC w/ auto diff PLT 10*3/u L 163.0 337.0 174.0 FINAL Shayne Castellanos [facility] (T), [address], [address] [facility] [address] 07/06 PSA, total ng/mL 0.04 FINAL [facility] ([facility]), [address] [place] [address] 07/06 CMP - Core Lab Sodiu m mmol/L 136.0 145.0 141 FINAL Mil[facility] ([facility]), [address] [place] [address] 11637 07/06 CMP - Core Lab Potas sium mmol/L 3.5 5.1 4.1 [facility]), [address] [place] [address] [place] [address] 07/06 CMP - Core Lab Chlor naif mmol/L 98.0 107.0 105 FINAL [facility]), [address] [place] [address] [place] [address] 07/06 CMP - Core Lab CO2 mmol/L 20.0 31.0 27.1 FINAL Milvia Cezaring [facility] ([facility]), [address] [place] [address] [place] [address] 07/06 CMP - Core Lab Anion gap, mmol/ L mmol/L 4.0 15.0 8.9 FINAL Milvia Cezaring [facility] ([facility]), [address] [place] [address] [place] [address] 07/06 CMP - Core Lab BUN mg/dL 9.0 23.0 13 FINAL Milvia Liming [facility] ([facility]), [address] [place] [address] [place] [address] 07/06 CMP - Core Lab BUN/C reati nine ratio 0.0 25.0 13.8 [facility]AL [facility]), [address] [place] [address] 07/06 CMP - Core Lab Creat inine mg/dL 0.6 1.1 0.94 FINAL [facility]), [address] [place] [address] 07/06 CMP - Core Lab GFR non-A frica n Ameri can, estim ated mL/min /1.73m >60.0 [facility]), [address] [place], [place] [id number] 07/06 CMP - Core Lab GFR Afric an Ameri can, estim ated mL/min /1.73m >60.0 FINAL Mil[facility] ([facility]), [address] [place] [address] 15696 07/06 CMP - Core Lab Gluco se mg/dL 74.0 106.0 91 FINAL Mil[facility] ([facility]), [address] [place] [address] 07/06 CMP - Core Lab Calci um mg/dL 8.7 10.6 10.3 FINAL [facility]), [address] [place], [place] [id number] 07/06 CMP - Core Lab Album in g/dL 3.4 5.0 4.0 [facility]AL [facility]), [address] [place] [address]682 07/06 CMP - Core Lab Total prote in g/dL 5.7 8.2 6.8 FINAL [facility]), [address] [place] [address] 07/06 CMP - Core Lab A/G ratio 1.0 2.0 1.4 FINAL [facility] ([facility]), [address] [place] [address] 07/06 CMP - Core Lab Alkal ine phosp hatas e U/L 46.0 116.0 48 FINAL Milvia Cezaring [facility] ([facility]), [address] [facility] [address] 07/06 CMP - Core Lab ALT/S GPT U/L 10.0 49.0 24 FINAL Milvia Cezaring [facility] ([facility]), [address] [facility] [address] 07/06 CMP - Core Lab AST/S GOT U/L 0.0 34.0 23 FINAL Milvia [facility] ([facility]), [facility] [address] 07/06 CMP - Core Lab Bilir ubin, total mg/dL 0.3 1.2 0.5 FINAL [facility]), [facility] [address] 07/06 CBC w/ auto diff LY # 10*3/u L 1.32 3.57 1.07 Low FINAL Milvia Robbing [facility] [address], [address] [facility] [address] 07/06 CBC w/ auto diff MO # 10*3/u L 0.3 0.82 0.57 FINAL Milvia Cezaring [facility]), [address], [address] [facility] [address] 07/06 CBC w/ auto diff EO # 10*3/u lL 0.04 0.54 0.23 FINAL Milvia Liming [facility]), [address], [address] [facility] [address] 07/06 CBC w/ auto diff BA # 10*3/u L 0.01 0.08 0.04 FINAL Milvia Liming [facility]), [address], [address] [facility] [address] 07/06 CBC w/ auto diff Alan % % 34.0 67.9 69.4 High FINAL Milvia Liming [facility] ([facility]), [address], [address] [place] [address] 07/06 CBC w/ auto diff LY % % 21.8 53.1 17.2 Low FINAL Milvia Liming [facility] ([facility]), [address], [address] [place] [address] 07/06 CBC w/ auto diff MO % % 5.3 12.2 9.1 FINAL Milvia Liming [facility] ([facility]), [address], [address] [place] [address] 07/06 CBC w/ auto diff EO % % 0.8 7.0 3.7 FINAL Milvia Liming [facility] ([facility]), [address], [address] [place] [address] 07/06 CBC w/ auto diff BA % % 0.2 1.2 0.6 FINAL Milvia Liming [facility] ([facility]), [address], [address] [place] [address] 07/06 CBC w/ auto diff RBC 10*6/u L 4.63 6.08 4.55 Low FINAL Milvia Liming [facility] ([facility] [address], [address] [place] [address] 07/06 CBC w/ auto diff HGB g/dL 13.7 17.5 13.4 Low FINAL Milvia Liming [facility] ([facility]), [address], [address] [place] [address] 07/06 CBC w/ auto diff HCT % 40.1 51.0 39.9 Low FINAL Milvia Liming [facility] ([facility]), [address], [address] [place] [address] 07/06 CBC w/ auto diff MCV fL 79.0 92.2 87.7 FINAL Milvia Liming [facility] ([facility]), [address], [address] [place] [address] 07/06 CBC w/ auto diff MCH pg 25.7 32.2 29.5 FINAL Milvia Liming [facility] ([facility]), [address], [address] [facility] [address] 07/06 CBC w/ auto diff MCHC g/dL 32.3 36.5 33.6 FINAL Milvia Johnson [facility] (T), [address], [address] [place] [id number] 07/06 CBC w/ auto diff RDW-C V, % % 11.6 14.4 13.7 FINAL Milvia Johnson [facility] (T), [address], [address] [place], [place] [address] 07/06 CBC w/ auto diff PLT 10*3/u L 163.0 337.0 197.0 FINAL Milvia Johnson [facility] (T), [address], [address] [place] [address] 07/06 CBC w/ auto diff WBC 10*3/u L 4.2 9.1 6.2 FINAL Milvia Johnson [facility] (T), [address], [address] [place], [place] [address] 07/06 CBC w/ auto diff Alan # (ANC) 10*3/u L 1.78 5.38 4.32 [facility]AL [facility] [address] [facility], [address] [place], [place] [address] 10/06 CMP - Core Lab Sodiu m mmol/L 136.0 145.0 142 FINAL [facility] ([facility]), [address] [place], [place] [id number] 10/06 CMP - Core Lab Potas sium mmol/L 3.5 5.1 4.4 FINAL [facility] ([facility]), [address] [place], [place] [id number] 10/06 CMP - Core Lab Chlor naif mmol/L 98.0 107.0 107 FINAL [facility] ([facility]), [address] [place] [address] 10/06 CMP - Core Lab CO2 mmol/L 20.0 31.0 25.4 FINAL [facility] ([facility]), [address] [place] [address] [place] [address] 10/06 CMP - Core Lab Anion gap, mmol/ L mmol/L 4.0 15.0 9.6 FINAL [facility] ([facility]), [address] [place] [address] [place] [address] 10/06 CMP - Core Lab BUN mg/dL 9.0 23.0 19 FINAL [facility] ([facility]), [address] [place] [address] [place] [address] 10/06 CMP - Core Lab BUN/C reati nine ratio 0.0 25.0 20.9 FINAL [facility] ([facility]), [address] [place] [address] 10/06 CMP - Core Lab Creat inine mg/dL 0.6 1.1 0.91 FINAL [facility] ([facility]), [address] [place] [address] 10/06 CMP - Core Lab GFR non-A frica n Ameri can, estim ated mL/min /1.73m >60.0 FINAL [facility] ([facility]), [address] [place] [address] [place] [address] 10/06 CMP - Core Lab GFR Afric an Ameri can, estim ated mL/min /1.73m >60.0 FINAL [facility] ([facility]), [address] [place] [address] [place] [address] 10/06 CMP - Core Lab Gluco se mg/dL 74.0 106.0 102 FINAL [facility] ([facility]), [address] [place] [address] [place] [address] 10/06 CMP - Core Lab Calci um mg/dL 8.7 10.6 10.8 High FINAL [facility] ([facility]), [address] [place] [address] [place] [address] 10/06 CMP - Core Lab Album in g/dL 3.4 5.0 4.4 FINAL [facility] ([facility]), [address] [place] [address] [place] [address] 08/03 /2022 CMP - Core Lab Total prote in g/dL 5.7 8.2 7.3 FINAL [facility] ([facility]), [address] [place] [address] 10/06 CMP - Core Lab A/G ratio 1.0 2.0 1.5 FINAL [facility] ([facility]), [address] [place] [address] 10/06 CMP - Core Lab Alkal ine phosp hatas e U/L 46.0 116.0 49 FINAL [facility] ([facility]), [address] [place] [address] 10/06 CMP - Core Lab ALT/S GPT U/L 10.0 49.0 27 FINAL [facility] ([facility]), [address] [place] [address] 10/06 CMP - Core Lab AST/S GOT U/L 0.0 34.0 23 FINAL [facility] ([facility]), [address] [place] [address] 10/06 CMP - Core Lab Bilir ubin, total mg/dL 0.3 1.2 0.4 FINAL [facility] ([facility]), [address] [place] [address] 10/06 PSA, total ng/mL 0.04 FINAL [facility] ([facility]), [address] [place] [address] 10/06 CBC w/ auto diff WBC 10*3/u L 4.2 9.1 6.2 FINAL [facility] ([facility]), [address], [address] [facility] [address] 10/06 CBC w/ auto diff Alan # (ANC) 10*3/u L 1.78 5.38 4.31 FINAL [facility] ([facility]), [address], [address] [facility] [address] 10/06 CBC w/ auto diff LY # 10*3/u L 1.32 3.57 0.99 Low FINAL [facility] ([facility]), [address], [address] [place] [address] 10/06 CBC w/ auto diff MO # 10*3/u L 0.3 0.82 0.61 FINAL [facility]), [address], [address] [place] [address] 10/06 CBC w/ auto diff EO # 10*3/u lL 0.04 0.54 0.26 FINAL [facility] ([facility]), [address], [address] [place] [address] 10/06 CBC w/ auto diff BA # 10*3/u L 0.01 0.08 0.02 FINAL [facility] ([facility]), [address], [address] [place] [address] 10/06 CBC w/ auto diff Alan % % 34.0 67.9 69.6 High FINAL [facility] ([facility]), [address], [address] [place] [address] 10/06 CBC w/ auto diff LY % % 21.8 53.1 16.0 Low FINAL [facility] ([facility]), [address], [address] [place] [address] 10/06 CBC w/ auto diff MO % % 5.3 12.2 9.9 FINAL [facility] ([facility]), [address], [address] [place] [address] 10/06 CBC w/ auto diff EO % % 0.8 7.0 4.2 FINAL [facility] ([facility]), [address], [address] [place] [address] 10/06 CBC w/ auto diff BA % % 0.2 1.2 0.3 FINAL [facility] ([facility]), [address], [address] [place] [address] 10/06 CBC w/ auto diff RBC 10*6/u L 4.63 6.08 4.82 FINAL [facility] (T), [address], [address] [place] [address] 10/06 CBC w/ auto diff HGB g/dL 13.7 17.5 14.0 FINAL [facility] (T), [address], [address] [place] [address] 10/06 CBC w/ auto diff HCT % 40.1 51.0 42.0 FINAL [facility] (T), [address], [address] [place] [address] 10/06 CBC w/ auto diff MCV fL 79.0 92.2 87.1 FINAL [facility] ([facility]), [address], [address] [place] [address] 10/06 CBC w/ auto diff MCH pg 25.7 32.2 29.0 FINAL [facility] ([facility]), [address], [address] [place] [address] 10/06 CBC w/ auto diff MCHC g/dL 32.3 36.5 33.3 FINAL [facility] (T), [address], [address] [place] [address] 10/06 CBC w/ auto diff RDW-C V, % % 11.6 14.4 14.0 FINAL [facility] (T), [address], [address] [place] [address] 10/06 CBC w/ auto diff PLT 10*3/u L 163.0 337.0 212.0 FINAL [facility] ([facility]), [address], [address] [place] [address] 01/05 CBC w/ auto diff WBC 10*3/u L 4.2 9.1 5.2 FINAL [facility]), [address], [address] [place] [address] 01/05 CBC w/ auto diff Alan # (ANC) 10*3/u L 1.78 5.38 3.53 FINAL Milvia Johnson [facility] ([facility]), [address], [address] [facility] [address] 01/05 CBC w/ auto diff LY # 10*3/u L 1.32 3.57 0.94 Low FINAL Milvia Johnson [facility] ([facility]), [address], [address] [place], [place] [id number] 01/05 CBC w/ auto diff MO # 10*3/u L 0.3 0.82 0.46 FINAL Milvia Johnson [facility]), [address], [address] [place] [address] 01/05 CBC w/ auto diff EO # 10*3/u lL 0.04 0.54 0.20 FINAL Milvia Johnson [facility]), [address], [address] [place] [address] 01/05 CBC w/ auto diff BA # 10*3/u L 0.01 0.08 0.02 FINAL Milvia Robbing [facility] ([facility]), [address], [address] [place] [address] 01/05 CBC w/ auto diff Alan % % 34.0 67.9 68.5 High FINAL Milvia Robbing [facility]), [address], [address] [place] [address] 01/05 CBC w/ auto diff LY % % 21.8 53.1 18.3 Low FINAL Milvia Robbing [facility] ([facility]), [address], [address] [place] [address] 01/05 CBC w/ auto diff MO % % 5.3 12.2 8.9 FINAL Milvia Cezaring [facility] ([facility]), [address], [address] [place] [address] 01/05 CBC w/ auto diff EO % % 0.8 7.0 3.9 FINAL Milvia Cezaring [facility] ([facility]), [address], [address] [place] [address] 01/05 CBC w/ auto diff BA % % 0.2 1.2 0.4 FINAL [facility] [address], [address] [place] [address] 01/05 CBC w/ auto diff RBC 10*6/u L 4.63 6.08 4.42 Low [facility]AL [facility] [address], [address] [place] [address] 01/05 CBC w/ auto diff HGB g/dL 13.7 17.5 12.9 Low [facility]AL [facility] [address], [address] [place] [address] 01/05 CBC w/ auto diff HCT % 40.1 51.0 39.9 Low FINAL [facility] [address], [address] [place] [address] 01/05 CBC w/ auto diff MCV fL 79.0 92.2 90.3 FINAL [facility] [address], [address] [place] [address] 01/05 CBC w/ auto diff MCH pg 25.7 32.2 29.2 FINAL [facility] [address], [address] [place] [address] 01/05 CBC w/ auto diff MCHC g/dL 32.3 36.5 32.3 FINAL [facility] [address], [address] [place] [address] 01/05 CBC w/ auto diff RDW-C V, % % 11.6 14.4 13.6 FINAL [facility] [address], [address] [place] [address] 01/05 CBC w/ auto diff PLT 10*3/u L 163.0 337.0 176.0 FINAL [facility] [address], [address] [place] [address] 01/05 CMP - Core Lab Sodiu m mmol/L 136.0 145.0 140 [facility]), [address] [place] [address] 01/05 CMP - Core Lab Potas sium mmol/L 3.5 5.1 4.4 [facility]AL [facility]), [address] [place] [address] 01/05 CMP - Core Lab Chlor naif mmol/L 98.0 107.0 106 [facility]), [address] [place] [address] 01/05 CMP - Core Lab CO2 mmol/L 20.0 31.0 26.6 FINAL Milvia [facility] ([facility]), [address] [place] [address] 01/05 CMP - Core Lab Anion gap, mmol/ L mmol/L 4.0 15.0 7.4 FINAL [facility]), [address] [place] [address] 01/05 CMP - Core Lab BUN mg/dL 9.0 23.0 22 [facility]), [address] [place] [address] 01/05 CMP - Core Lab BUN/C reati nine ratio 0.0 25.0 22.4 [facility]AL [facility] ([facility]), [address] [place] [address] 01/05 CMP - Core Lab Creat inine mg/dL 0.6 1.1 0.98 FINAL [facility]), [address] [place] [address] 01/05 CMP - Core Lab GFR non-A frica n Ameri can, estim ated mL/min /1.73m >60.0 FINAL [facility] ([facility]), [address] [place] [address] 01/05 CMP - Core Lab GFR Afric an Ameri can, estim ated mL/min /1.73m >60.0 FINAL [facility]), [address] [place] [address] [place] [address] 01/05 CMP - Core Lab Gluco se mg/dL 74.0 106.0 109 High FINAL [facility] ([facility]), [address] [place] [address] [place] [address] 01/05 CMP - Core Lab Calci um mg/dL 8.7 10.6 9.7 FINAL [facility] ([facility]), [address] [place] [address] [place] [address] 01/05 CMP - Core Lab Album in g/dL 3.4 5.0 3.8 FINAL Milvia [facility] ([facility]), [address] [place] [address] [place] [address] 01/05 CMP - Core Lab Total prote in g/dL 5.7 8.2 6.5 FINAL Milvia [facility] ([facility]), [address] [place] [address] [place] [address] 01/05 CMP - Core Lab A/G ratio 1.0 2.0 1.4 FINAL Milvia [facility] ([facility]), [address] [place] [address] [place] [address] 01/05 CMP - Core Lab Alkal ine phosp hatas e U/L 46.0 116.0 46 [facility]AL [facility]), [address] [place] [address] [place] [address] 01/05 CMP - Core Lab ALT/S GPT U/L 10.0 49.0 24 FINAL Milvia [facility] ([facility]), [address] [place] [address] [place] [address] 01/05 CMP - Core Lab AST/S GOT U/L 0.0 34.0 23 FINAL Milvia [facility] ([facility]), [address] [place] [address] [place] [address] 01/05 CMP - Core Lab Bilir ubin, total mg/dL 0.3 1.2 0.4 FINAL Milvia [facility] ([facility]), [address] [facility] [address] 01/05 PSA, total ng/mL 0.04 FINAL Milvia Johnson [facility] ([facility]), [address] [facility] [address] 04/07 CBC w/ auto diff WBC 10*3/u L 4.2 9.1 5.5 FINAL [facility] ([facility]), [address], [address] [place] [address] 04/07 CBC w/ auto diff Alan # (ANC) 10*3/u L 1.78 5.38 3.98 FINAL [facility]), [address], [address] [place] [address] 04/07 CBC w/ auto diff LY # 10*3/u L 1.32 3.57 0.91 Low FINAL [facility] ([facility]), [address], [address] [place] [address] 04/07 CBC w/ auto diff MO # 10*3/u L 0.3 0.82 0.40 FINAL [facility] ([facility]), [address], [address] [place] [address] 04/07 CBC w/ auto diff EO # 10*3/u lL 0.04 0.54 0.19 FINAL [facility] ([facility]), [address], [address] [place] [address] 04/07 CBC w/ auto diff BA # 10*3/u L 0.01 0.08 0.02 FINAL Sh[facility] ([facility]), [address], [address] [place], [place] [address] 04/07 CBC w/ auto diff Alan % % 34.0 67.9 72.3 High FINAL [facility] ([facility]), [address], [address] [place] [address] 04/07 CBC w/ auto diff LY % % 21.8 53.1 16.5 Low FINAL [facility]), [address], [address] [place] [address] 04/07 CBC w/ auto diff MO % % 5.3 12.2 7.3 FINAL [facility] ([facility]), [address], [address] [place] [address] 04/07 CBC w/ auto diff EO % % 0.8 7.0 3.5 FINAL [facility] ([facility]), [address], [address] [place] [address] 04/07 CBC w/ auto diff BA % % 0.2 1.2 0.4 FINAL [facility] ([facility]), [address], [address] [place] [address] 04/07 CBC w/ auto diff RBC 10*6/u L 4.63 6.08 4.70 FINAL [facility] (T), [address], [address] [place] [address] 04/07 CBC w/ auto diff HGB g/dL 13.7 17.5 13.7 FINAL [facility] ([facility]), [address], [address] [place] [address] 04/07 CBC w/ auto diff HCT % 40.1 51.0 41.6 FINAL [facility] ([facility]), [address], [address] [place] [address] 04/07 CBC w/ auto diff MCV fL 79.0 92.2 88.5 FINAL [facility] ([facility]), [address], [address] [place] [address] 04/07 CBC w/ auto diff MCH pg 25.7 32.2 29.1 FINAL [facility] ([facility]), [address], [address] [place] [address] 04/07 CBC w/ auto diff MCHC g/dL 32.3 36.5 32.9 FINAL [facility] (T), [address], [address] [place] [address] 04/07 CBC w/ auto diff RDW-C V, % % 11.6 14.4 13.7 FINAL [facility] ([facility]), [address], [address] [facility] [address] 04/07 CBC w/ auto diff PLT 10*3/u L 163.0 337.0 188.0 FINAL [facility] (T), [address], [address] [facility] [address] 04/07 PSA, total ng/mL 0.04 FINAL [facility] ([facility]), [address] [place] [address] 04/07 CMP - Core Lab Sodiu m mmol/L 136.0 145.0 139 FINAL [facility] ([facility]), [address] [place] [address] 04/07 CMP - Core Lab Potas sium mmol/L 3.5 5.1 4.2 FINAL [facility] ([facility]), [address] [place] [address] 04/07 CMP - Core Lab Chlor naif mmol/L 98.0 107.0 104 FINAL [facility] ([facility]), [address] [place] [address] 04/07 CMP - Core Lab CO2 mmol/L 20.0 31.0 28.3 FINAL [facility] ([facility]), [address] [place] [address] 04/07 CMP - Core Lab Anion gap, mmol/ L mmol/L 4.0 15.0 6.7 FINAL [facility] ([facility]), [address] [place] [address] 04/07 CMP - Core Lab BUN mg/dL 9.0 23.0 20 FINAL [facility] ([facility]), [address] [place] [address] 04/07 CMP - Core Lab BUN/C reati nine ratio 0.0 25.0 21.3 FINAL [facility] ([facility]), [address] [place] [address] 04/07 CMP - Core Lab Creat inine mg/dL 0.6 1.1 0.94 FINAL [facility] ([facility]), [address] [place] [address] 04/07 CMP - Core Lab GFR non-A frica n Ameri can, estim ated mL/min /1.73m >60.0 FINAL [facility] ([facility]), [address] [place] [address] 04/07 CMP - Core Lab GFR Afric an Ameri can, estim ated mL/min /1.73m >60.0 FINAL [facility] ([facility]), [address] [place] [address] 04/07 CMP - Core Lab Gluco se mg/dL 74.0 106.0 127 High FINAL [facility] ([facility]), [address] [place] [address] 04/07 CMP - Core Lab Calci um mg/dL 8.7 10.6 10.6 FINAL [facility] ([facility]), [address] [place] [address] 04/07 CMP - Core Lab Album in g/dL 3.4 5.0 4.2 FINAL [facility] ([facility]), [address] [place] [address] 04/07 CMP - Core Lab Total prote in g/dL 5.7 8.2 7.3 FINAL [facility] ([facility]), [address] [place] [address] 04/07 CMP - Core Lab A/G ratio 1.0 2.0 1.4 FINAL [facility] ([facility]), [address] [place] [address] 04/07 CMP - Core Lab Alkal ine phosp hatas e U/L 46.0 116.0 47 FINAL [facility] ([facility]), [address] [place] [address] 04/07 CMP - Core Lab ALT/S GPT U/L 10.0 49.0 25 FINAL [facility] ([facility]), [address] [place] [address] [place] [address] 04/07 CMP - Core Lab AST/S GOT U/L 0.0 34.0 25 FINAL [facility] ([facility]), [address] [place] [address] [place] [address] 04/07 CMP - Core Lab Bilir ubin, total mg/dL 0.3 1.2 0.5 FINAL [facility] ([facility]), [address] [place] [address] [place] [address] 07/05 CMP - Core Lab Sodiu m mmol/L 136.0 145.0 140 FINAL [facility] ([facility]), [address] [place] [address] [place] [address] 07/05 CMP - Core Lab Potas sium mmol/L 3.5 5.1 4.2 FINAL [facility] ([facility]), [address] [place] [address] [place] [address] 07/05 CMP - Core Lab Chlor naif mmol/L 98.0 107.0 104 FINAL [facility] ([facility]), [address] [place] [address] [place] [address] 07/05 CMP - Core Lab CO2 mmol/L 20.0 31.0 26.9 FINAL [facility] ([facility]), [address] [place] [address] [place] [address] 07/05 CMP - Core Lab Anion gap, mmol/ L mmol/L 4.0 15.0 9.1 FINAL [facility] [facility] ([facility]), [address] [place] [address] [place] [address] 07/05 CMP - Core Lab BUN mg/dL 9.0 23.0 16 FINAL [facility] ([facility]), [address] [place] [address] [place] [address] 07/05 CMP - Core Lab BUN/C reati nine ratio 0.0 25.0 16.0 FINAL [facility] ([facility]), [address] [place] [address] [place] [address] 07/05 CMP - Core Lab Creat inine mg/dL 0.73 1.18 1.00 FINAL [facility] ([facility]), [address] [place] [address] 07/05 CMP - Core Lab GFR non-A frica n Ameri can, estim ated mL/min /1.73m >60.0 FINAL [facility] ([facility]), [address] [place] [address] 07/05 CMP - Core Lab GFR Afric an Ameri can, estim ated mL/min /1.73m >60.0 FINAL [facility] ([facility]), [address] [place] [address] 07/05 CMP - Core Lab Gluco se mg/dL 74.0 106.0 118 High FINAL [facility] ([facility]), [address] [place] [address]78 07/05 CMP - Core Lab Calci um mg/dL 8.7 10.6 10.1 FINAL [facility] ([facility]), [address] [place] [address] 07/05 CMP - Core Lab Album in g/dL 3.4 5.0 4.2 [facility]AL [facility]), [address] [place] [address] 07/05 CMP - Core Lab Total prote in g/dL 5.7 8.2 7.0 [facility]AL [facility] ([facility]), [address] [place] [address]298 07/05 CMP - Core Lab A/G ratio 1.0 2.0 1.5 FINAL [facility] ([facility]), [address] [place] [address] 63366 07/05 CMP - Core Lab Alkal ine phosp hatas e U/L 46.0 116.0 44 Low [facility]), [address] [place] [address]693 07/05 CMP - Core Lab ALT/S GPT U/L 10.0 49.0 32 FINAL [facility] ([facility]), [address] [facility] [address] 07/05 CMP - Core Lab AST/S GOT U/L 0.0 34.0 30 FINAL [facility] ([facility]), [address] [facility] [address] 07/05 CMP - Core Lab Bilir ubin, total mg/dL 0.3 1.2 0.5 FINAL [facility] ([facility]), [facility] [address] 07/05 CBC w/ auto diff HCT % 40.1 51.0 45.8 FINAL [facility] ([facility]), [address], [address] [place] [address] 07/05 CBC w/ auto diff MCV fL 79.0 92.2 89.5 FINAL [facility] ([facility]), [address], [address] [place] [address] 07/05 CBC w/ auto diff MCH pg 25.7 32.2 29.3 FINAL [facility]), [address], [address] [place] [address] 07/05 CBC w/ auto diff MCHC g/dL 32.3 36.5 32.8 FINAL [facility] ([facility]), [address], [address] [place] [address] 07/05 CBC w/ auto diff RDW-C V, % % 11.6 14.4 14.0 FINAL [facility] ([facility]), [address], [address] [place] [address] 07/05 CBC w/ auto diff PLT 10*3/u L 163.0 337.0 168.0 FINAL [facility] ([facility]), [address], [address] [place] [address] 07/05 CBC w/ auto diff WBC 10*3/u L 4.2 9.1 5.4 FINAL [facility] ([facility]), [address], [address] [place] [address] 07/05 CBC w/ auto diff Alan # (ANC) 10*3/u L 1.78 5.38 3.78 FINAL [facility] ([facility]), [address], [address] [place] [address] 07/05 CBC w/ auto diff LY # 10*3/u L 1.32 3.57 0.88 Low FINAL [facility] ([facility]), [address], [address] [place] [address] 07/05 CBC w/ auto diff MO # 10*3/u L 0.3 0.82 0.53 FINAL [facility] ([facility]), [address], [address] [place] [address] 07/05 CBC w/ auto diff EO # 10*3/u lL 0.04 0.54 0.15 FINAL [facility] ([facility]), [address], [address] [place] [address] 07/05 CBC w/ auto diff BA # 10*3/u L 0.01 0.08 0.02 FINAL [facility] ([facility]), [address], [address] [place] [address] 07/05 CBC w/ auto diff Alan % % 34.0 67.9 70.5 High FINAL [facility] ([facility]), [address], [address] [place] [address] 07/05 CBC w/ auto diff LY % % 21.8 53.1 16.4 Low FINAL [facility] ([facility]), [address], [address] [place] [address] 07/05 CBC w/ auto diff MO % % 5.3 12.2 9.9 FINAL [facility] ([facility]), [address], [address] [place] [address] 07/05 CBC w/ auto diff EO % % 0.8 7.0 2.8 FINAL [facility] ([facility]), [address], [address] [facility] [address] 07/05 CBC w/ auto diff BA % % 0.2 1.2 0.4 FINAL [facility] ([facility]), [address], [address] [facility] [address] 07/05 CBC w/ auto diff RBC 10*6/u L 4.63 6.08 5.12 FINAL [facility] ([facility]), [address], [address] [facility] [address] 07/05 CBC w/ auto diff HGB g/dL 13.7 17.5 15.0 FINAL [facility] ([facility]), [address], [address] [facility] [address] 07/05 PSA, total ng/mL 0.04 FINAL [facility] ([facility]), [address] [place] [address] [place] [address] 10/10 CMP - Core Lab Sodiu m mmol/L 136.0 145.0 140 FINAL [facility] ([facility]), [address] [place] [address] [place] [address] 10/10 CMP - Core Lab Potas sium mmol/L 3.5 5.1 4.6 FINAL [facility] ([facility]), [address] [place] [address] [place] [address] 10/10 CMP - Core Lab Chlor naif mmol/L 98.0 107.0 104 FINAL [facility] ([facility]), [address] [place] [address] [place] [address] 10/10 CMP - Core Lab CO2 mmol/L 20.0 31.0 27.7 FINAL [facility] ([facility]), [address] [place] [address] [place] [address] 10/10 CMP - Core Lab Anion gap, mmol/ L mmol/L 4.0 15.0 8.3 FINAL [facility] ([facility]), [address] [place] [address] [place] [address] 10/10 CMP - Core Lab BUN mg/dL 9.0 23.0 19 FINAL [facility] ([facility]), [address] [place] [address] [place] [address] 10/10 CMP - Core Lab BUN/C reati nine ratio 0.0 25.0 18.3 FINAL [facility] ([facility]), [address] [place] [address] [place] [address] 10/10 CMP - Core Lab Creat inine mg/dL 0.73 1.18 1.04 FINAL [facility] ([facility]), [address] [place] [address] 10/10 CMP - Core Lab GFR non-A frica n Ameri can, estim ated mL/min /1.73m >60.0 FINAL [facility] ([facility]), [address] [place] [address] 10/10 CMP - Core Lab GFR Afric an Ameri can, estim ated mL/min /1.73m >60.0 FINAL [facility] ([facility]), [address] [place] [address]993 10/10 CMP - Core Lab Gluco se mg/dL 74.0 106.0 110 High FINAL [facility] ([facility]), [address] [place] [address] [place] [address] 10/10 CMP - Core Lab Calci um mg/dL 8.7 10.6 9.6 FINAL [facility] ([facility]), [address] [place] [address] [place] [address] 10/10 CMP - Core Lab Album in g/dL 3.4 5.0 3.7 FINAL [facility] ([facility]), [address] [place] [address] [place] [address] 10/10 CMP - Core Lab Total prote in g/dL 5.7 8.2 6.4 FINAL [facility] ([facility]), [address] [place] [address] [place] [address] 10/10 CMP - Core Lab A/G ratio 1.0 2.0 1.4 FINAL [facility] ([facility]), [address] [place] [address] 10/10 CMP - Core Lab Alkal ine phosp hatas e U/L 46.0 116.0 33 Low FINAL [facility] ([facility]), [address] [place] [address] 10/10 CMP - Core Lab ALT/S GPT U/L 10.0 49.0 27 FINAL [facility] ([facility]), [address] [place] [address]2853 10/10 CMP - Core Lab AST/S GOT U/L 0.0 34.0 25 FINAL [facility] ([facility]), [address] [place] [address] 85556 10/10 CMP - Core Lab Bilir ubin, total mg/dL 0.3 1.2 0.4 FINAL [facility] ([facility]), [address] [place] [address] 94783 10/10 PSA, total ng/mL 0.04 FINAL [facility] ([facility]), [address] [place] [address] 12826 10/10 TIBC and perce nt sat w/ iron panel Iron / FE ug/dL 65.0 175.0 84 FINAL [facility] ([facility]), [address] [place] [address] [place] [address] 10/10 TIBC and perce nt sat w/ iron panel TIBC ug/dL 250.0 425.0 398 FINAL [facility] ([facility]), [address] [place] [address] [place] [address] 10/10 TIBC and perce nt sat w/ iron panel Iron, % satur ation % 20.0 50.0 21 FINAL [facility] ([facility]), [address] [place] [address] 11737 10/10 Darren tin ng/mL 10.5 307.3 207.9 FINAL [facility] ([facility]), [address] [place] [address]373 10/10 CBC w/ auto diff WBC 10*3/u L 4.2 9.1 3.8 Low FINAL [facility] ([facility]), [address], [address] [place] [address] 10/10 CBC w/ auto diff Alan # (ANC) 10*3/u L 1.78 5.38 2.36 FINAL [facility] ([facility]), [address], [address] [place] [address] 10/10 CBC w/ auto diff LY # 10*3/u L 1.32 3.57 0.77 Low FINAL [facility] ([facility]), [address], [address] [place] [address] 10/10 CBC w/ auto diff MO # 10*3/u L 0.3 0.82 0.46 FINAL [facility] ([facility]), [address], [address] [place] [address] 10/10 CBC w/ auto diff EO # 10*3/u lL 0.04 0.54 0.23 FINAL [facility] ([facility]), [address], [address] [place] [address] 10/10 CBC w/ auto diff BA # 10*3/u L 0.01 0.08 0.01 FINAL [facility] ([facility]), [address], [address] [place] [address] 10/10 CBC w/ auto diff Alan % % 34.0 67.9 61.6 FINAL [facility] ([facility]), [address], [address] [place] [address] 10/10 CBC w/ auto diff LY % % 21.8 53.1 20.1 Low FINAL [facility] ([facility]), [address], [address] [place] [address]643 10/10 CBC w/ auto diff MO % % 5.3 12.2 12.0 FINAL [facility] ([facility]), [address], [address] [place] [address] 10/10 CBC w/ auto diff EO % % 0.8 7.0 6.0 FINAL [facility] ([facility]), [address], [address] [place] [address] 10/10 CBC w/ auto diff BA % % 0.2 1.2 0.3 FINAL [facility] (T), [address], [address] [place] [address] 10/10 CBC w/ auto diff RBC 10*6/u L 4.63 6.08 3.70 Low FINAL [facility] (T), [address], [address] [place] [address] 10/10 CBC w/ auto diff HGB g/dL 13.7 17.5 11.2 Low FINAL [facility] ([facility]), [address], [address] [place] [address] 10/10 CBC w/ auto diff HCT % 40.1 51.0 33.4 Low FINAL [facility] ([facility]), [address], [address] [place] [address] 10/10 CBC w/ auto diff MCV fL 79.0 92.2 90.3 FINAL [facility] ([facility]), [address], [address] [place] [address] 10/10 CBC w/ auto diff MCH pg 25.7 32.2 30.3 FINAL [facility] ([facility]), [address], [address] [place] [address] 10/10 CBC w/ auto diff MCHC g/dL 32.3 36.5 33.5 FINAL [facility] ([facility]), [address], [address] [place] [address] 10/10 CBC w/ auto diff RDW-C V, % % 11.6 14.4 14.4 FINAL [facility] ([facility]), [address], [address] [place] [address] 10/10 CBC w/ auto diff PLT 10*3/u L 163.0 337.0 154.0 Low FINAL [facility] ([facility]), [address], [address] [facility] [address] 10/24 Lab Repor t See stenocaptioner d 01/10 CMP - Core Lab Sodiu m mmol/L 136.0 145.0 139 FINAL [facility] ([facility]), [address] [place] [address] 01/10 CMP - Core Lab Potas sium mmol/L 3.5 5.1 4.1 FINAL [facility] ([facility]), [address] [place] [address] 01/10 CMP - Core Lab Chlor naif mmol/L 98.0 107.0 105 FINAL [facility] ([facility]), [address] [place] [address] [place] [address] 01/10 CMP - Core Lab CO2 mmol/L 20.0 31.0 27.2 FINAL [facility] ([facility]), [address] [place] [address] [place] [address] 01/10 CMP - Core Lab Anion gap, mmol/ L mmol/L 4.0 15.0 6.8 FINAL [facility] ([facility]), [address] [place] [address] [place] [address] 01/10 CMP - Core Lab BUN mg/dL 9.0 23.0 31 High FINAL [facility] ([facility]), [address] [place] [address] [place] [address] 01/10 CMP - Core Lab BUN/C reati nine ratio 0.0 25.0 28.7 High FINAL [facility] ([facility]), [address] [place] [address] [place] [address] 01/10 CMP - Core Lab Creat inine mg/dL 0.73 1.18 1.08 FINAL [facility] ([facility]), [address] [place] [address] [place] [address] 01/10 CMP - Core Lab GFR non-A frica n Ameri can, estim ated mL/min /1.73m >60.0 FINAL [facility] ([facility]), [address] [place] [address] [place] [address] 01/10 CMP - Core Lab GFR Afric an Ameri can, estim ated mL/min /1.73m >60.0 FINAL [facility] ([facility]), [address] [place] [address] [place] [address] 01/10 CMP - Core Lab Gluco se mg/dL 74.0 106.0 103 [facility]AL [facility]), [address] [place] [address] [place] [address] 01/10 CMP - Core Lab Calci um mg/dL 8.7 10.6 10.1 FINAL [facility] ([facility]), [address] [place] [address] [place] [address] 01/10 CMP - Core Lab Album in g/dL 3.4 5.0 4.0 [facility]AL [facility] ([facility]), [address] [place] [address] [place] [address] 01/10 CMP - Core Lab Total prote in g/dL 5.7 8.2 6.7 FINAL [facility] ([facility]), [address] [place] [address] [place] [address] 01/10 CMP - Core Lab A/G ratio 1.0 2.0 1.5 FINAL [facility] ([facility]), [address] [place] [address] [place] [address] 01/10 CMP - Core Lab Alkal ine phosp hatas e U/L 46.0 116.0 36 Low FINAL [facility] ([facility]), [address] [place] [address] [place] [address] 01/10 CMP - Core Lab ALT/S GPT U/L 10.0 49.0 22 FINAL [facility] ([facility]), [address] [place] [address] [place] [address] 01/10 CMP - Core Lab AST/S GOT U/L 0.0 34.0 23 [facility] ([facility]), [address] [facility] [address] 01/10 CMP - Core Lab Bilir ubin, total mg/dL 0.3 1.2 0.4 FINAL [facility] ([facility]), [address] [facility] [address] 01/10 CBC w/ auto diff WBC 10*3/u L 4.2 9.1 4.1 Low FINAL [facility] ([facility]), [address], [address] [place] [address] 01/10 CBC w/ auto diff Alan # (ANC) 10*3/u L 1.78 5.38 2.90 FINAL [facility] ([facility]), [address], [address] [place] [address] 01/10 CBC w/ auto diff LY # 10*3/u L 1.32 3.57 0.69 Low FINAL [facility] ([facility]), [address], [address] [place], [place] [address] 01/10 CBC w/ auto diff MO # 10*3/u L 0.3 0.82 0.37 FINAL [facility] ([facility]), [address], [address] [place] [address] 01/10 CBC w/ auto diff EO # 10*3/u lL 0.04 0.54 0.11 FINAL [facility] ([facility]), [address], [address] [place], [place] [address] 01/10 CBC w/ auto diff BA # 10*3/u L 0.01 0.08 0.01 FINAL [facility] ([facility]), [address], [address] [place] [address] 01/10 CBC w/ auto diff Alan % % 34.0 67.9 71.1 High FINAL [facility] ([facility]), [address], [address] [place] [address] 01/10 CBC w/ auto diff LY % % 21.8 53.1 16.9 Low FINAL [facility] ([facility]), [address], [address] [place] [address] 01/10 CBC w/ auto diff MO % % 5.3 12.2 9.1 FINAL [facility] ([facility]), [address], [address] [place] [address] 01/10 CBC w/ auto diff EO % % 0.8 7.0 2.7 FINAL [facility] ([facility]), [address], [address] [place] [address] 01/10 CBC w/ auto diff BA % % 0.2 1.2 0.2 FINAL [facility] ([facility]), [address], [address] [place] [address] 01/10 CBC w/ auto diff RBC 10*6/u L 4.63 6.08 3.46 Low FINAL [facility] ([facility]), [address], [address] [place] [address] 01/10 CBC w/ auto diff HGB g/dL 13.7 17.5 10.5 Low FINAL [facility] ([facility]), [address], [address] [place] [address] 01/10 CBC w/ auto diff HCT % 40.1 51.0 31.3 Low FINAL [facility] ([facility]), [address], [address] [place] [address] 01/10 CBC w/ auto diff MCV fL 79.0 92.2 90.5 FINAL [facility] ([facility]), [address], [address] [place] [address] 01/10 CBC w/ auto diff MCH pg 25.7 32.2 30.3 FINAL [facility] ([facility]), [address], [address] [place] [address] 01/10 CBC w/ auto diff MCHC g/dL 32.3 36.5 33.5 FINAL [facility] ([facility]), [address], [address] [facility] [address] 01/10 CBC w/ auto diff RDW-C V, % % 11.6 14.4 12.7 [facility] [address], [address] [facility] [address] 01/10 CBC w/ auto diff PLT 10*3/u L 163.0 337.0 182.0 [facility] [address], [address] [facility] [address] 01/10 PSA, total ng/mL 0.04 FINAL [facility] ([facility]), [address] [place] [address] [place] [address] 04/12 PSA, total ng/mL 0.04 FINAL [facility] ([facility]), [address] [place] [address] 8[address]99 04/12 CMP - Core Lab Sodiu m mmol/L 136.0 145.0 140 FINAL [facility] ([facility]), [address] [place] [address] [place] [address] 04/12 CMP - Core Lab Potas sium mmol/L 3.5 5.1 4.7 FINAL [facility] ([facility]), [address] [place] [address] [place] [address] 04/12 CMP - Core Lab Chlor naif mmol/L 98.0 107.0 105 FINAL [facility] ([facility]), [address] [place] [address] [place] [address] 04/12 CMP - Core Lab CO2 mmol/L 20.0 31.0 25.7 FINAL [facility] ([facility]), [address] [place] [address] [place] [address] 04/12 CMP - Core Lab Anion gap, mmol/ L mmol/L 4.0 15.0 9.3 FINAL [facility] ([facility]), [address] [place] [address] [place] [address] 04/12 CMP - Core Lab BUN mg/dL 9.0 23.0 20 FINAL [facility] ([facility]), [address] [place] [address] 10263 04/12 CMP - Core Lab BUN/C reati nine ratio 0.0 25.0 19.0 FINAL [facility] ([facility]), [address] [place] [address] 63298 04/12 CMP - Core Lab Creat inine mg/dL 0.73 1.18 1.05 FINAL [facility] ([facility]), [address] [place] [address]157 04/12 CMP - Core Lab GFR non-A frica n Ameri can, estim ated mL/min /1.73m >60.0 FINAL [facility] ([facility]), [address] [place] [address] 04/12 CMP - Core Lab GFR Afric an Ameri can, estim ated mL/min /1.73m >60.0 FINAL [facility] ([facility]), [address] [place] [address]689 04/12 CMP - Core Lab Gluco se mg/dL 74.0 106.0 109 High FINAL [facility] ([facility]), [address] [place] [address] 10406 04/12 CMP - Core Lab Calci um mg/dL 8.7 10.6 10.0 FINAL [facility] ([facility]), [address] [place] [address] 91129 04/12 CMP - Core Lab Album in g/dL 3.4 5.0 3.8 FINAL [facility] ([facility]), [address] [place] [address] 61923 04/12 CMP - Core Lab Total prote in g/dL 5.7 8.2 6.6 FINAL [facility] ([facility]), [address] [place] [address] 91375 04/12 CMP - Core Lab A/G ratio 1.0 2.0 1.4 FINAL [facility] ([facility]), [address] [place] [address] 6[address]90 04/12 CMP - Core Lab Alkal ine phosp hatas e U/L 46.0 116.0 35 Low FINAL [facility] ([facility]), [address] [place] [address]007 04/12 CMP - Core Lab ALT/S GPT U/L 10.0 49.0 34 FINAL [facility] ([facility]), [address] [place] [address]277 04/12 CMP - Core Lab AST/S GOT U/L 0.0 34.0 38 High FINAL [facility] ([facility]), [address] [place] [address] 08984 04/12 CMP - Core Lab Bilir ubin, total mg/dL 0.3 1.2 0.4 FINAL [facility] ([facility]), [address] [place] [address] 04/12 CBC w/ auto diff WBC 10*3/u L 4.2 9.1 4.7 FINAL [facility] ([facility]), [address], [address] [place] [address] 04/12 CBC w/ auto diff Alan # (ANC) 10*3/u L 1.78 5.38 3.26 FINAL [facility] ([facility]), [address], [address] [place] [address] 04/12 CBC w/ auto diff LY # 10*3/u L 1.32 3.57 0.88 Low FINAL [facility] ([facility]), [address], [address] [place] [address] 860[address] 04/12 CBC w/ auto diff MO # 10*3/u L 0.3 0.82 0.42 FINAL [facility] ([facility]), [address], [address] [facility] [address] 04/12 CBC w/ auto diff EO # 10*3/u lL 0.04 0.54 0.15 FINAL [facility] ([facility]), [address], [address] [place] [address] 04/12 CBC w/ auto diff BA # 10*3/u L 0.01 0.08 0.02 [facility]AL [facility] [address], [address] [place] [address] 04/12 CBC w/ auto diff Alan % % 34.0 67.9 68.9 High FINAL [facility] ([facility]), [address], [address] [place] [address] 04/12 CBC w/ auto diff LY % % 21.8 53.1 18.6 Low FINAL [facility] ([facility]), [address], [address] [place] [address] 04/12 CBC w/ auto diff MO % % 5.3 12.2 8.9 FINAL [facility] ([facility]), [address], [address] [place] [address] 04/12 CBC w/ auto diff EO % % 0.8 7.0 3.2 FINAL [facility] ([facility]), [address], [address] [place] [address] 04/12 CBC w/ auto diff BA % % 0.2 1.2 0.4 FINAL [facility] ([facility]), [address], [address] [place] [address] 04/12 CBC w/ auto diff RBC 10*6/u L 4.63 6.08 3.84 Low FINAL [facility] ([facility]), [address], [address] [place] [address] 04/12 CBC w/ auto diff HGB g/dL 13.7 17.5 11.4 Low FINAL [facility] ([facility]), [address], [address] [place] [address] 04/12 CBC w/ auto diff HCT % 40.1 51.0 35.6 Low FINAL [facility] ([facility]GT), [address], [address] [place] [address] 04/12 CBC w/ auto diff MCV fL 79.0 92.2 92.7 High FINAL [facility] ([facility]), [address], [address] [place] [address] 04/12 CBC w/ auto diff MCH pg 25.7 32.2 29.7 FINAL [facility] ([facility]), [address], [address] [place] [address] 04/12 CBC w/ auto diff MCHC g/dL 32.3 36.5 32.0 Low FINAL [facility] ([facility]), [address], [address] [place], [place] [id number] 04/12 CBC w/ auto diff RDW-C V, % % 11.6 14.4 13.7 FINAL [facility] ([facility]), [address], [address] [place], [place] [id number] 04/12 CBC w/ auto diff PLT 10*3/u L 163.0 337.0 177.0 FINAL [facility] ([facility]), [address], [address] [place] [address] 07/10 CMP - Core Lab Sodiu m mmol/L 136.0 145.0 140 FINAL [facility] ([facility]), [address] [place], [place] [id number] 07/10 CMP - Core Lab Potas sium mmol/L 3.5 5.1 4.4 FINAL [facility] ([facility]), [address] [place] [address] 07/10 CMP - Core Lab Chlor naif mmol/L 98.0 107.0 105 FINAL [facility] ([facility]), [address] [place], [place] [id number] 07/10 CMP - Core Lab CO2 mmol/L 20.0 31.0 25.7 FINAL [facility] ([facility]), [address] [place], [place] [id number] 07/10 CMP - Core Lab Anion gap, mmol/ L mmol/L 4.0 15.0 9.3 FINAL [facility] ([facility]), [address] [place] [address] [place] [address] 07/10 CMP - Core Lab BUN mg/dL 9.0 23.0 23 FINAL [facility] ([facility]), [address] [place] [address] [place] [address] 07/10 CMP - Core Lab BUN/C reati nine ratio 0.0 25.0 22.8 FINAL [facility] ([facility]), [address] [place] [address] 07/10 CMP - Core Lab Creat inine mg/dL 0.73 1.18 1.01 FINAL [facility] ([facility]), [address] [place] [address] 07/10 CMP - Core Lab eGFR, mL/mi n/1.7 3 mL/min /1.73m 60.0 0.0 >60.0 FINAL [facility] ([facility]), [address] [place] [address] [place] [address] 07/10 CMP - Core Lab Gluco se mg/dL 74.0 106.0 124 High FINAL [facility] ([facility]), [address] [place] [address] [place] [address] 07/10 CMP - Core Lab Calci um mg/dL 8.7 10.6 10.4 FINAL [facility] ([facility]), [address] [place] [address] [place] [address] 07/10 CMP - Core Lab Album in g/dL 3.4 5.0 4.1 FINAL [facility] ([facility]), [address] [place] [address] [place] [address] 07/10 CMP - Core Lab Total prote in g/dL 5.7 8.2 7.1 FINAL [facility] ([facility]), [address] [place] [address] [place] [address] 07/10 CMP - Core Lab A/G ratio 1.0 2.0 1.4 FINAL [facility] ([facility]), [facility] [address] 07/10 CMP - Core Lab Alkal ine phosp hatas e U/L 46.0 116.0 38 Low FINAL [facility] ([facility]), [address] [place] [address] 07/10 CMP - Core Lab ALT/S GPT U/L 10.0 49.0 23 [facility] ([facility]), [address] [place] [address] 07/10 CMP - Core Lab AST/S GOT U/L 0.0 34.0 26 [facility]), [address] [place] [address] 07/10 CMP - Core Lab Bilir ubin, total mg/dL 0.3 1.2 0.4 [facility]AL [facility] ([facility]), [address] [place] [address] 07/10 CBC w/ auto diff WBC 10*3/u L 4.2 9.1 5.3 FINAL [facility]), [address], [address] [place] [phone] 07/10 CBC w/ auto diff Alan # (ANC) 10*3/u L 1.78 5.38 3.62 FINAL [facility] ([facility]), [address], [address] [place] [phone] 07/10 CBC w/ auto diff LY # 10*3/u L 1.32 3.57 0.96 Low FINAL [facility] ([facility]), [address], [address] [facility] [address] 07/10 CBC w/ auto diff MO # 10*3/u L 0.3 0.82 0.47 FINAL [facility] ([facility]), [address], [address] [facility] [address] 07/10 CBC w/ auto diff EO # 10*3/u lL 0.04 0.54 0.24 FINAL [facility] ([facility]), [address], [address] [place] [address] 07/10 CBC w/ auto diff BA # 10*3/u L 0.01 0.08 0.01 FINAL [facility] ([facility]), [address], [address] [place] [address] 07/10 CBC w/ auto diff Alan % % 34.0 67.9 68.3 High FINAL [facility] ([facility]), [address], [address] [place] [address] 07/10 CBC w/ auto diff LY % % 21.8 53.1 18.1 Low FINAL [facility] ([facility]), [address], [address] [place] [address] 07/10 CBC w/ auto diff MO % % 5.3 12.2 8.9 FINAL [facility] ([facility]), [address], [address] [place] [address] 07/10 CBC w/ auto diff EO % % 0.8 7.0 4.5 FINAL [facility] ([facility]), [address], [address] [place] [address] 07/10 CBC w/ auto diff BA % % 0.2 1.2 0.2 FINAL [facility] ([facility]), [address], [address] [place] [address] 07/10 CBC w/ auto diff RBC 10*6/u L 4.63 6.08 4.05 Low FINAL [facility] ([facility]), [address], [address] [place] [address] 07/10 CBC w/ auto diff HGB g/dL 13.7 17.5 12.1 Low FINAL [facility] ([facility]), [address], [address] [place] [address] 07/10 CBC w/ auto diff HCT % 40.1 51.0 37.2 Low FINAL [facility] (T), [address], [address] [place] [phone] 07/10 CBC w/ auto diff MCV fL 79.0 92.2 91.9 [facility] [address], [address] [place] [address] 07/10 CBC w/ auto diff MCH pg 25.7 32.2 29.9 FINAL [facility]), [address], [address] [place] [address] 07/10 CBC w/ auto diff MCHC g/dL 32.3 36.5 32.5 [facility] [address], [address] [place] [address] 07/10 CBC w/ auto diff RDW-C V, % % 11.6 14.4 13.6 FINAL [facility] (T), [address], [address] [place], [place] [address] 07/10 CBC w/ auto diff PLT 10*3/u L 163.0 337.0 166.0 FINAL [facility] (T), [address], [address] [place], [place] [phone] 07/10 PSA, total ng/mL 0.04 FINAL [facility] ([facility]), [address] [place] [address] 10/10 CMP - Core Lab Sodiu m mmol/L 136.0 145.0 139 FINAL [facility] ([facility]), [address] [place] [address] 10/10 CMP - Core Lab Potas sium mmol/L 3.5 5.1 4.2 FINAL [facility] ([facility]), [address] [place], [place] [phone] 10/10 CMP - Core Lab Chlor naif mmol/L 98.0 107.0 107 FINAL [facility] ([facility]), [address] [place], [place] [phone] 10/10 CMP - Core Lab CO2 mmol/L 20.0 31.0 27.3 FINAL [facility] ([facility]), [address] [place] [address] [place] [address] 10/10 CMP - Core Lab Anion gap, mmol/ L mmol/L 4.0 15.0 4.7 FINAL [facility] ([facility]), [address] [place] [address] [place] [address] 10/10 CMP - Core Lab BUN mg/dL 9.0 23.0 15 FINAL [facility] ([facility]), [address] [place] [address] [place] [address] 10/10 CMP - Core Lab BUN/C reati nine ratio 0.0 25.0 15.3 FINAL [facility] ([facility]), [address] [place] [address] [place] [address] 10/10 CMP - Core Lab Creat inine mg/dL 0.73 1.18 0.98 FINAL [facility] ([facility]), [address] [place] [address] [place] [address] 10/10 CMP - Core Lab eGFR, mL/mi n/1.7 3 mL/min /1.73m 60.0 0.0 >60.0 FINAL [facility] ([facility]), [address] [place] [address] [place] [address] 10/10 CMP - Core Lab Gluco se mg/dL 74.0 106.0 95 FINAL [facility] ([facility]), [address] [place] [address] [place] [address] 10/10 CMP - Core Lab Calci um mg/dL 8.7 10.6 9.5 FINAL [facility] ([facility]), [address] [place] [address] [place] [address] 10/10 CMP - Core Lab Album in g/dL 3.4 5.0 3.8 FINAL [facility] ([facility]), [address] [place] [address] [place] [address] 10/10 CMP - Core Lab Total prote in g/dL 5.7 8.2 6.5 FINAL [facility] ([facility]), [address] [place] [address] 10/10 CMP - Core Lab A/G ratio 1.0 2.0 1.4 FINAL [facility] ([facility]), [address] [place] [address] 10/10 CMP - Core Lab Alkal ine phosp hatas e U/L 46.0 116.0 44 Low FINAL [facility] ([facility]), [address] [place] [address] 10/10 CMP - Core Lab ALT/S GPT U/L 10.0 49.0 19 FINAL [facility] ([facility]), [address] [place] [address] 10/10 CMP - Core Lab AST/S GOT U/L 0.0 34.0 23 FINAL [facility] ([facility]), [address] [place] [address] 10/10 CMP - Core Lab Bilir ubin, total mg/dL 0.3 1.2 0.4 FINAL [facility] ([facility]), [address] [place] [address] 10/10 CBC w/ auto diff WBC 10*3/u L 4.2 9.1 4.4 FINAL [facility] ([facility]), [address], [address] [place] [address] 10/10 CBC w/ auto diff Alan # (ANC) 10*3/u L 1.78 5.38 3.10 FINAL [facility] ([facility]), [address], [address] [facility] [address] 10/10 CBC w/ auto diff LY # 10*3/u L 1.32 3.57 0.74 Low FINAL [facility] ([facility]), [address], [address] [facility] [address] 10/10 CBC w/ auto diff MO # 10*3/u L 0.3 0.82 0.36 FINAL [facility] ([facility]), [address], [address] [place] [address] 10/10 CBC w/ auto diff EO # 10*3/u lL 0.04 0.54 0.14 [facility] [address], [address] [place] [address] 10/10 CBC w/ auto diff BA # 10*3/u L 0.01 0.08 0.02 FINAL [facility] ([facility]), [address], [address] [place] [address] 10/10 CBC w/ auto diff Alan % % 34.0 67.9 71.0 High FINAL [facility] ([facility]), [address], [address] [place] [address] 10/10 CBC w/ auto diff LY % % 21.8 53.1 17.0 Low FINAL [facility] ([facility]), [address], [address] [place] [address] 10/10 CBC w/ auto diff MO % % 5.3 12.2 8.3 FINAL [facility] ([facility]), [address], [address] [place] [address] 10/10 CBC w/ auto diff EO % % 0.8 7.0 3.2 FINAL [facility] ([facility]), [address], [address] [place] [address] 10/10 CBC w/ auto diff BA % % 0.2 1.2 0.5 FINAL [facility] ([facility]), [address], [address] [place] [address] 10/10 CBC w/ auto diff RBC 10*6/u L 4.63 6.08 4.04 Low FINAL [facility] ([facility]), [address], [address] [place] [address] 10/10 CBC w/ auto diff HGB g/dL 13.7 17.5 12.4 Low FINAL [facility] ([facility]), [address], [address] [place] [address] 10/10 CBC w/ auto diff HCT % 40.1 51.0 38.0 Low FINAL [facility] ([facility]), [address], [address] [place], [place] [address] 10/10 CBC w/ auto diff MCV fL 79.0 92.2 94.1 High FINAL [facility] ([facility]), [address], [address] [place] [address] 10/10 CBC w/ auto diff MCH pg 25.7 32.2 30.7 FINAL [facility] ([facility]), [address], [address] [place] [address] 10/10 CBC w/ auto diff MCHC g/dL 32.3 36.5 32.6 FINAL [facility] ([facility]), [address], [address] [place] [address] 10/10 CBC w/ auto diff RDW-C V, % % 11.6 14.4 13.9 FINAL [facility] ([facility]), [address], [address] [place] [address] 10/10 CBC w/ auto diff PLT 10*3/u L 163.0 337.0 174.0 FINAL [facility] ([facility]), [address], [address] [place], [place] [phone] 10/10 PSA, total ng/mL 0.04 FINAL [facility] ([facility]), [address] [place] [address] 01/10 PSA, total ng/mL < 0.04 FINAL [facility] ([facility]), [address] [place] [address] 01/10 CBC w/ auto diff WBC 10*3/u L 4.2 9.1 5.7 FINAL [facility] ([facility]GT), [address], [address] [place], [place] [phone] 01/10 CBC w/ auto diff Alan # (ANC) 10*3/u L 1.[address] [facility] [address], [address] [place] [address] 01/10 CBC w/ auto diff LY # 10*3/u L 1.32 3.57 [address] [facility] [facility] ([facility]), [address], [address] [place] [address] 01/10 CBC w/ auto diff MO # 10*3/u L 0.3 0.82 0.49 FINAL [facility] (T), [address], [address] [place] [address] 01/10 CBC w/ auto diff EO # 10*3/u lL 0.04 0.54 0.25 FINAL [facility] (T), [address], [address] [place] [address] 01/10 CBC w/ auto diff BA # 10*3/u L 0.01 0.08 0.[address] [facility] [facility] ([facility]), [address], [address] [place] [address] 01/10 CBC w/ auto diff Alan % % 34.0 67.9 66.1 FINAL [facility] (T), [address], [address] [place] [address] 01/10 CBC w/ auto diff LY % % 21.8 53.1 20.4 Low FINAL [facility] (T), [address], [address] [place] [address] 01/10 CBC w/ auto diff MO % % 5.3 12.2 8.6 FINAL [facility] (T), [address], [address] [place] [address] 01/10 CBC w/ auto diff EO % % 0.8 7.0 4.4 FINAL [facility] ([facility]), [address], [address] [place] [address] 01/10 CBC w/ auto diff BA % % 0.2 1.2 0.5 FINAL [facility] ([facility]), [address], [address] [place] [address] 01/10 CBC w/ auto diff RBC 10*6/u L 4.63 6.08 4.78 FINAL [facility] ([facility]), [address], [address] [place] [phone] 01/10 CBC w/ auto diff HGB g/dL 13.7 17.5 14.4 FINAL [facility] ([facility]), [address], [address] [place] [address] 01/10 CBC w/ auto diff HCT % 40.1 51.0 43.0 FINAL [facility] ([facility]), [address], [address] [place] [address] 01/10 CBC w/ auto diff MCV fL 79.0 92.2 90.0 FINAL [facility] ([facility]), [address], [address] [place] [address] 01/10 CBC w/ auto diff MCH pg 25.7 32.2 30.1 FINAL [facility] ([facility]), [address], [address] [place] [address] 01/10 CBC w/ auto diff MCHC g/dL 32.3 36.5 33.5 FINAL [facility] ([facility]), [address], [address] [place] [address] 01/10 CBC w/ auto diff RDW-C V, % % 11.6 14.4 13.2 FINAL [facility] ([facility]), [address], [address] [facility] [address] 01/10 CBC w/ auto diff PLT 10*3/u L 163.0 337.0 191.0 FINAL [facility] ([facility]), [address], [address] [facility] [address] 01/10 CMP - Core Lab Sodiu m mmol/L 136.0 145.0 138 FINAL [facility] ([facility]), [address] [place] [address] [place] [address] 01/10 CMP - Core Lab Potas sium mmol/L 3.5 5.1 4.2 FINAL [facility] ([facility]), [address] [place] [address] [place] [address] 01/10 CMP - Core Lab Chlor naif mmol/L 98.0 107.0 106 FINAL [facility] ([facility]), [address] [place] [address] [place] [address] 01/10 CMP - Core Lab CO2 mmol/L 20.0 31.0 27.0 FINAL [facility] ([facility]), [address] [place] [address] [place] [address] 01/10 CMP - Core Lab Anion gap, mmol/ L mmol/L 4.0 15.0 5.0 FINAL [facility] ([facility]), [address] [place] [address] [place] [address] 01/10 CMP - Core Lab BUN mg/dL 9.0 23.0 18 FINAL [facility] ([facility]), [address] [place] [address] [place] [address] 01/10 CMP - Core Lab BUN/C reati nine ratio 0.0 25.0 18.6 FINAL [facility] ([facility]), [address] [place] [address] [place] [address] 01/10 CMP - Core Lab Creat inine mg/dL 0.73 1.18 0.97 FINAL [facility] ([facility]), [address] [place] [address] [place] [address] 01/10 CMP - Core Lab eGFR, mL/mi n/1.7 3 mL/min /1.73m 60.0 0.0 >60.0 FINAL [facility] ([facility]), [address] [place] [address] [place] [address] 01/10 CMP - Core Lab Gluco se mg/dL 74.0 106.0 104 FINAL [facility] ([facility]), [address] [place] [address] [place] [address] 01/10 CMP - Core Lab Calci um mg/dL 8.7 10.6 10.1 FINAL [facility] ([facility]), [address] [place] [address] [place] [address] 01/10 CMP - Core Lab Album in g/dL 3.4 5.0 4.2 FINAL [facility] ([facility]), [address] [place] [address] [place] [address] 01/10 CMP - Core Lab Total prote in g/dL 5.7 8.2 7.3 FINAL [facility] ([facility]), [address] [place] [address] [place] [address] 01/10 CMP - Core Lab A/G ratio 1.0 2.0 1.4 FINAL [facility] ([facility]), [address] [place] [address] [place] [address] 01/10 CMP - Core Lab Alkal ine phosp hatas e U/L 46.0 116.0 48 FINAL [facility] ([facility]), [address] [place] [address] [place] [address] 01/10 CMP - Core Lab ALT/S GPT U/L 10.0 49.0 23 FINAL [facility] ([facility]), [address] [place] [address] [place] [address] 01/10 CMP - Core Lab AST/S GOT U/L 0.0 34.0 22 FINAL [facility] ([facility]), [address] [place] [address] [place] [address] 01/10 CMP - Core Lab Bilir ubin, total mg/dL 0.3 1.2 0.5 FINAL [facility] ([facility]), [address] [place] [address] [place] [address] 04/11 PSA, total ng/mL < 0.04 FINAL [facility] ([facility]), [address] [place] [address] 04/11 CMP - Core Lab Sodiu m mmol/L 136.0 145.0 142 FINAL [facility] ([facility]), [address] [place] [address] 04/11 CMP - Core Lab Potas sium mmol/L 3.4 5.1 4.5 FINAL [facility] ([facility]), [address] [place] [address] 04/11 CMP - Core Lab Chlor naif mmol/L 98.0 107.0 106 FINAL [facility] ([facility]), [address] [place] [address] 04/11 CMP - Core Lab CO2 mmol/L 20.0 31.0 25.3 FINAL [facility] ([facility]), [address] [place], [place] [id number] 04/11 CMP - Core Lab Anion gap, mmol/ L mmol/L 4.0 15.0 10.7 FINAL [facility] ([facility]), [address] [place] [address] 04/11 CMP - Core Lab BUN mg/dL 9.0 23.0 23 FINAL [facility] ([facility]), [address] [place] [address] 04/11 CMP - Core Lab BUN/C reati nine ratio 0.0 25.0 24.2 FINAL [facility] ([facility]), [address] [place] [address] 04/11 CMP - Core Lab Creat inine mg/dL 0.73 1.18 0.95 FINAL [facility] ([facility]), [address] [place] [address] 04/11 CMP - Core Lab eGFR, mL/mi n/1.7 3 mL/min /1.73m 60.0 0.0 >60.0 FINAL [facility] ([facility]), [address] [place] [address] 04/11 CMP - Core Lab Gluco se mg/dL 74.0 106.0 87 FINAL [facility] ([facility]), [address] [place] [address] 04/11 CMP - Core Lab Calci um mg/dL 8.7 10.6 9.9 FINAL [facility] ([facility]), [address] [place] [address] 04/11 CMP - Core Lab Album in g/dL 3.4 5.0 3.9 FINAL [facility] ([facility]), [address] [place] [address] 04/11 CMP - Core Lab Total prote in g/dL 5.7 8.2 6.3 FINAL [facility] ([facility]), [address] [place] [address] 04/11 CMP - Core Lab A/G ratio 1.0 2.0 1.6 FINAL [facility] ([facility]), [address] [place] [address] 04/11 CMP - Core Lab Alkal ine phosp hatas e U/L 46.0 116.0 34 Low FINAL [facility] ([facility]), [address] [place] [address] 04/11 CMP - Core Lab ALT/S GPT U/L 10.0 49.0 19 FINAL [facility] ([facility]), [address] [place] [address] [place] [address] 04/11 CMP - Core Lab AST/S GOT U/L 0.0 34.0 22 FINAL [facility] ([facility]), [address] [place] [address] [place] [address] 04/11 CMP - Core Lab Bilir ubin, total mg/dL 0.3 1.2 0.3 FINAL [facility] ([facility]), [address] [place] [address] [place] [address] 04/11 CBC w/ auto diff WBC 10*3/u L 4.2 9.1 3.8 Low FINAL [facility] ([facility]), [address], [address] [place] [address] 04/11 CBC w/ auto diff Alan # (ANC) 10*3/u L 1.78 5.38 2.53 [facility]AL [facility] (T), [address], [address] [place] [address] 04/11 CBC w/ auto diff LY # 10*3/u L 1.32 3.57 0.70 Low FINAL Shayne [facility] (T), [address], [address] [place] [address] 04/11 CBC w/ auto diff MO # 10*3/u L 0.3 0.82 0.40 FINAL Shayne [facility] (T), [address], [address] [place] [address] 04/11 CBC w/ auto diff EO # 10*3/u lL 0.04 0.54 0.17 FINAL Shayne [facility] (T), [address], [address] [place] [address] 04/11 CBC w/ auto diff BA # 10*3/u L 0.01 0.08 0.01 FINAL [facility] (T), [address], [address] [place] [address] 04/11 CBC w/ auto diff Alan % % 34.0 67.9 66.3 FINAL Shayne [facility] (T), [address], [address] [place] [address] 04/11 CBC w/ auto diff LY % % 21.8 53.1 18.4 Low FINAL Shayne [facility] (T), [address], [address] [place] [address] 04/11 CBC w/ auto diff MO % % 5.3 12.2 10.5 FINAL Shayne [facility] (T), [address], [address] [place] [address] 04/11 CBC w/ auto diff EO % % 0.8 7.0 4.5 FINAL Sh[facility]ne [facility] (T), [address], [address] [place] [address] 04/11 CBC w/ auto diff BA % % 0.2 1.2 0.3 FINAL Sh[facility] (T), [address], [address] [place] [address] 04/11 CBC w/ auto diff RBC 10*6/u L 4.63 6.08 3.66 Low FINAL [facility] (T), [address], [address] [place] [address] 04/11 CBC w/ auto diff HGB g/dL 13.7 17.5 11.4 Low FINAL [facility] ([facility]), [address], [address] [place] [address] 04/11 CBC w/ auto diff HCT % 40.1 51.0 34.8 Low FINAL [facility] (T), [address], [address] [place] [address] 04/11 CBC w/ auto diff MCV fL 79.0 92.2 95.1 High FINAL [facility] ([facility]), [address], [address] [place] [address] 04/11 CBC w/ auto diff MCH pg 25.7 32.2 31.1 FINAL [facility] (T), [address], [address] [place] [address] 04/11 CBC w/ auto diff MCHC g/dL 32.3 36.5 32.8 FINAL [facility] (T), [address], [address] [place] [address] 04/11 CBC w/ auto diff RDW-C V, % % 11.6 14.4 13.3 FINAL [facility] (T), [address], [address] [place] [address] 04/11 CBC w/ auto diff PLT 10*3/u L 163.0 337.0 183.0 FINAL [facility] (T), [address], [address] [place] [address] 07/11 CBC w/ auto diff WBC 10*3/u L 4.2 9.1 5.0 FINAL Milvia Johnson [facility] [address], [address] [place] [address] 07/11 CBC w/ auto diff Alan # (ANC) 10*3/u L 1.78 5.38 3.34 FINAL Milvia Johnson [facility] ([facility]), [address], [address] [place] [address] 07/11 CBC w/ auto diff LY # 10*3/u L 1.32 3.57 0.98 Low FINAL Milvia Johnson [facility] ([facility]), [address], [address] [place] [address] 07/11 CBC w/ auto diff MO # 10*3/u L 0.3 0.82 0.41 FINAL Milvia Johnson [facility] ([facility]), [address], [address] [place] [address] 07/11 CBC w/ auto diff EO # 10*3/u lL 0.04 0.54 0.24 FINAL Milvia Johnson [facility] ([facility]), [address], [address] [place] [address] 07/11 CBC w/ auto diff BA # 10*3/u L 0.01 0.08 0.03 FINAL Milvia Johnson [facility] ([facility]), [address], [address] [place] [address] 07/11 CBC w/ auto diff Alan % % 34.0 67.9 66.8 FINAL Milvia Johnson [facility] ([facility]), [address], [address] [place] [address] 07/11 CBC w/ auto diff LY % % 21.8 53.1 19.6 Low [facility]AL [facility] [address], [address] [place] [address] 07/11 CBC w/ auto diff MO % % 5.3 12.2 8.2 FINAL Milvia Johnson [facility] ([facility]), [address], [address] [place] [address] 07/11 CBC w/ auto diff EO % % 0.8 7.0 4.8 FINAL [facility] [address], [address] [place] [address] 07/11 CBC w/ auto diff BA % % 0.2 1.2 0.6 FINAL [facility] ([facility] [address], [address] [place] [address] 07/11 CBC w/ auto diff RBC 10*6/u L 4.63 6.08 3.97 Low FINAL [facility] [address], [address] [place] [address] 07/11 CBC w/ auto diff HGB g/dL 13.7 17.5 11.9 Low FINAL [facility] ([facility] [address], [address] [place] [address] 07/11 CBC w/ auto diff HCT % 40.1 51.0 36.6 Low FINAL [facility] ([facility] [address], [address] [place] [address] 07/11 CBC w/ auto diff MCV fL 79.0 92.2 92.2 FINAL [facility] ([facility] [address], [address] [place] [address] 07/11 CBC w/ auto diff MCH pg 25.7 32.2 30.0 FINAL [facility] ([facility] [address], [address] [place] [address] 07/11 CBC w/ auto diff MCHC g/dL 32.3 36.5 32.5 FINAL [facility] ([facility] [address], [address] [place] [address] 07/11 CBC w/ auto diff RDW-C V, % % 11.6 14.4 13.6 FINAL [facility] [address], [address] [facility] [address] 07/11 CBC w/ auto diff PLT 10*3/u L 163.0 337.0 180 FINAL [facility] [address], [address] [facility] [address] 07/11 PSA, total ng/mL < 0.04 FINAL Milvia [facility] ([facility]), [facility] [address] 07/11 CMP - Core Lab Sodiu m mmol/L 136.0 145.0 143 FINAL Milvia Robbing [facility] ([facility]), [address] [place] [address] 07/11 CMP - Core Lab Potas sium mmol/L 3.4 5.1 4.8 FINAL [facility]), [address] [place] [address] 07/11 CMP - Core Lab Chlor naif mmol/L 98.0 107.0 105 FINAL [facility] ([facility]), [address] [place] [address] [place] [address] 07/11 CMP - Core Lab CO2 mmol/L 20.0 31.0 29.5 FINAL Milvia Robbing [facility] ([facility]), [address] [place] [address] [place] [address] 07/11 CMP - Core Lab Anion gap, mmol/ L mmol/L 4.0 15.0 8.5 FINAL Milvia C[facility]aring [facility] ([facility]), [address] [place] [address] [place] [address] 07/11 CMP - Core Lab BUN mg/dL 9.0 23.0 19 FINAL Milvia C[facility]aring [facility] ([facility]), [address] [place] [address] [place] [address] 07/11 CMP - Core Lab Creat inine mg/dL 0.73 1.18 1.02 FINAL Milvia Liming [facility] ([facility]), [address] [place] [address] [place] [address] 07/11 CMP - Core Lab BUN/C reati nine ratio 0.0 25.0 18.6 FINAL [facility]), [address] [place] [address] [place] [address] 07/11 CMP - Core Lab eGFR, mL/mi n/1.7 3 mL/min /1.73m >60.0 FINAL [facility] ([facility]), [address] [place] [address] [place] [address] 07/11 CMP - Core Lab Gluco se mg/dL 74.0 106.0 99 [facility]), [address] [place] [address] [place] [address] 07/11 CMP - Core Lab Calci um mg/dL 8.7 10.6 10.1 FINAL Milvia [facility] ([facility]), [address] [place] [address] 07/11 CMP - Core Lab Album in g/dL 3.4 5.0 3.8 FINAL [facility]), [address] [place] [address] 07/11 CMP - Core Lab Total prote in g/dL 5.7 8.2 6.6 FINAL [facility]), [address] [place] [address] [place] [address] 07/11 CMP - Core Lab A/G ratio 1.0 2.0 1.4 FINAL [facility] ([facility]), [address] [place] [address] [place] [address] 07/11 CMP - Core Lab Alkal ine phosp hatas e U/L 46.0 116.0 36 Low FINAL [facility]), [address] [place] [address] [place] [address] 07/11 CMP - Core Lab ALT/S GPT U/L 10.0 49.0 21 FINAL [facility]), [address] [place] [address] [place] [address] 07/11 CMP - Core Lab AST/S GOT U/L 0.0 34.0 23 FINAL [facility]), [facility] [place] [address] 07/11 CMP - Core Lab Bilir ubin, total mg/dL 0.3 1.2 0.4 FINAL [facility]), [facility] [place] [address] 10/02 CBC w/ auto diff WBC 10*3/u L 4.2 9.1 4.8 FINAL [facility] ([facility]), [address], [address] [place] [address] 10/02 CBC w/ auto diff Alan # (ANC) 10*3/u L 1.78 5.38 3.21 FINAL [facility] ([facility]), [address], [address] [place] [address] 10/02 CBC w/ auto diff LY # 10*3/u L 1.32 3.57 0.78 Low FINAL [facility] (T), [address], [address] [place] [address] 10/02 CBC w/ auto diff MO # 10*3/u L 0.3 0.82 0.54 FINAL [facility] ([facility]), [address], [address] [place] [address] 10/02 CBC w/ auto diff EO # 10*3/u lL 0.04 0.54 0.27 FINAL [facility] (T), [address], [address] [place] [address] 10/02 CBC w/ auto diff BA # 10*3/u L 0.01 0.08 0.02 FINAL [facility] ([facility]), [address], [address] [place] [address] 10/02 CBC w/ auto diff Alan % % 34.0 67.9 66.6 FINAL [facility] ([facility]), [address], [address] [place] [address] 10/02 CBC w/ auto diff LY % % 21.8 53.1 16.2 Low FINAL [facility] ([facility]), [address], [address] [place] [address] 10/02 CBC w/ auto diff MO % % 5.3 12.2 11.2 FINAL [facility] ([facility]), [address], [address] [place] [address] 10/02 CBC w/ auto diff EO % % 0.8 7.0 5.6 FINAL [facility] ([facility]), [address], [address] [place] [address] 10/02 CBC w/ auto diff BA % % 0.2 1.2 0.4 FINAL [facility] ([facility]), [address], [address] [place] [address] 10/02 CBC w/ auto diff RBC 10*6/u L 4.63 6.08 3.84 Low FINAL [facility] ([facility]), [address], [address] [place] [address] 10/02 CBC w/ auto diff HGB g/dL 13.7 17.5 11.4 Low FINAL [facility] ([facility]), [address], [address] [place] [address] 10/02 CBC w/ auto diff HCT % 40.1 51.0 34.7 Low FINAL [facility] ([facility]), [address], [address] [place] [address] 10/02 CBC w/ auto diff MCV fL 79.0 92.2 90.4 FINAL [facility] ([facility]), [address], [address] [place] [address] 10/02 CBC w/ auto diff MCH pg 25.7 32.2 29.7 FINAL [facility] ([facility]), [address], [address] [place] [address] 10/02 CBC w/ auto diff MCHC g/dL 32.3 36.5 32.9 FINAL [facility] ([facility]), [address], [address] [facility] [address] 10/02 CBC w/ auto diff RDW-C V, % % 11.6 14.4 13.7 FINAL Shayne [facility] ([facility]), [address], [address] [facility] [address] 10/02 CBC w/ auto diff PLT 10*3/u L 163.0 337.0 174 FINAL [facility] ([facility]), [address], [address] [place] [address] 10/02 PSA, total ng/mL < 0.04 FINAL [facility] ([facility]), [address] [place] [address] 10/02 CMP - Core Lab Sodiu m mmol/L 136.0 145.0 140 FINAL [facility] ([facility]), [address] [place] [address] [place] [address] 10/02 CMP - Core Lab Potas sium mmol/L 3.4 5.1 4.3 FINAL [facility] ([facility]), [address] [place] [address] [place] [address] 10/02 CMP - Core Lab Chlor naif mmol/L 98.0 107.0 105 FINAL [facility] ([facility]), [address] [place] [address] [place] [address] 10/02 CMP - Core Lab CO2 mmol/L 20.0 31.0 25.1 FINAL [facility] ([facility]), [address] [place] [address] [place] [address] 10/02 CMP - Core Lab Anion gap, mmol/ L mmol/L 4.0 15.0 9.9 FINAL [facility] ([facility]), [address] [place] [address] [place] [address] 10/02 CMP - Core Lab BUN mg/dL 9.0 23.0 29 High FINAL [facility] ([facility]), [address] [place] [address] [place] [address] 10/02 CMP - Core Lab Creat inine mg/dL 0.73 1.18 1.07 FINAL [facility] ([facility]), [address] [place] [address] [place] [address] 10/02 CMP - Core Lab BUN/C reati nine ratio 0.0 25.0 27.1 High FINAL [facility] ([facility]), [address] [place] [address] 10/02 CMP - Core Lab eGFR, mL/mi n/1.7 3 mL/min /1.73m >60.0 FINAL [facility] ([facility]), [address] [place] [address] 10/02 CMP - Core Lab Gluco se mg/dL 74.0 106.0 93 FINAL [facility] ([facility]), [address] [place] [address] [place] [address] 10/02 CMP - Core Lab Calci um mg/dL 8.7 10.6 9.9 FINAL [facility] ([facility]), [address] [place] [address] [place] [address] 10/02 CMP - Core Lab Album in g/dL 3.4 5.0 4.1 FINAL [facility] ([facility]), [address] [place] [address] [place] [address] 10/02 CMP - Core Lab Total prote in g/dL 5.7 8.2 6.6 FINAL [facility] ([facility]), [address] [place] [address] [place] [address] 10/02 CMP - Core Lab A/G ratio 1.0 2.0 1.6 FINAL [facility] ([facility]), [address] [place] [address] 10/02 CMP - Core Lab Alkal ine phosp hatas e U/L 46.0 116.0 39 Low FINAL [facility] ([facility]), [address] [place] [address] [place] [address] 10/02 CMP - Core Lab ALT/S GPT U/L 10.0 49.0 22 FINAL [facility] ([facility]), [facility] [address] 10/02 CMP - Core Lab AST/S GOT U/L 0.0 34.0 22 FINAL [facility] ([facility]), [address] [place] [address] 10/02 CMP - Core Lab Bilir ubin, total mg/dL 0.3 1.2 0.4 FINAL [facility] ([facility]), [address] [place] [address] Medications Date Name Route Dose Frequency Instructions [...] Insomnia Active Vital Signs Date Type Value 04/09/2019 Body Temperature 98.10 04/09/2019 Heart Beat 72.00 04/09/2019 Respiratory Rate 16.00 04/09/2019 Intravascular Systolic 134 04/09/2019 Intravascular Diastolic 82 04/09/2019 BSA 1.95 04/09/2019 Weight 185.00 04/09/2019 Height 64.00 04/09/2019 BMI 31.75 04/09/2019 Pain Scale 7.00 07/09/2019 BSA 1.96 07/09/2019 Body Temperature 98.20 07/09/2019 Heart Beat 74.00 07/09/2019 Respiratory Rate 14.00 07/09/2019 Intravascular Systolic 128 07/09/2019 Intravascular Diastolic 74 07/09/2019 Pain Scale 0.00 07/09/2019 Weight 187.20 07/09/2019 BMI 32.13 07/09/2019 Height 64.00 10/10/2019 BMI 30.93 10/10/2019 Height 64.00 10/10/2019 Weight 180.20 10/10/2019 Pain Scale 7.00 10/10/2019 BSA 1.92 10/10/2019 Respiratory Rate 14.00 10/10/2019 Heart Beat 72.00 10/10/2019 Body Temperature 98.30 10/10/2019 Intravascular Systolic 112 10/10/2019 Intravascular Diastolic 68 01/09/2020 BSA 1.93 01/09/2020 BMI 31.38 01/09/2020 Height 64.00 01/09/2020 Weight 182.80 01/09/2020 Pain Scale 0.00 01/09/2020 Intravascular Systolic 138 01/09/2020 Intravascular Diastolic 76 01/09/2020 Respiratory Rate 14.00 01/09/2020 Body Temperature 98.00 01/09/2020 Heart Beat 78.00 04/09/2020 BMI 31.58 04/09/2020 Height 64.00 04/09/2020 Weight 184.00 04/09/2020 Pain Scale 0.00 04/09/2020 BSA 1.94 04/09/2020 Respiratory Rate 10.00 04/09/2020 Heart Beat 66.00 04/09/2020 Body Temperature 98.10 04/09/2020 Intravascular Systolic 110 04/09/2020 Intravascular Diastolic 70 07/09/2020 BSA 1.92 07/09/2020 BMI 30.76 07/09/2020 Height 64.00 07/09/2020 Weight 179.20 07/09/2020 Pain Scale 0.00 07/09/2020 Intravascular Systolic 120 07/09/2020 Intravascular Diastolic 68 07/09/2020 Respiratory Rate 14.00 07/09/2020 Body Temperature 98.10 07/09/2020 Heart Beat 70.00 10/08/2020 Body Temperature 98.20 10/08/2020 Heart Beat 84.00 10/08/2020 Respiratory Rate 12.00 10/08/2020 Intravascular Systolic 128 10/08/2020 Intravascular Diastolic 82 10/08/2020 BSA 1.92 10/08/2020 Weight 179.40 10/08/2020 Height 64.00 10/08/2020 BMI 30.79 10/08/2020 Pain Scale 0.00 01/07/2021 Body Temperature 97.90 01/07/2021 Heart Beat 70.00 01/07/2021 Respiratory Rate 15.00 01/07/2021 Oxygen Saturation 98.00 01/07/2021 Intravascular Systolic 116 01/07/2021 Intravascular Diastolic 77 01/07/2021 Pain Scale 0.00 01/07/2021 Height 64.00 01/07/2021 Weight 176.40 01/07/2021 BMI 30.28 01/07/2021 BSA 1.90 04/08/2021 Body Temperature 98.40 04/08/2021 Heart Beat 72.00 04/08/2021 BSA 1.93 04/08/2021 BMI 31.17 04/08/2021 Height 64.00 04/08/2021 Weight 181.60 04/08/2021 Pain Scale 6.00 04/08/2021 Intravascular Systolic 130 04/08/2021 Intravascular Diastolic 78 04/08/2021 Respiratory Rate 16.00 07/06/2021 Body Temperature 98.40 07/06/2021 BMI 30.83 07/06/2021 Height 64.00 07/06/2021 Weight 179.60 07/06/2021 BSA 1.92 07/06/2021 Intravascular Systolic 122 07/06/2021 Intravascular Diastolic 82 07/06/2021 Respiratory Rate 18.00 07/06/2021 Heart Beat 72.00 07/06/2021 Pain Scale 7.00 10/06/2021 Body Temperature 98.20 10/06/2021 BSA 1.91 10/06/2021 BMI 30.69 10/06/2021 Height 64.00 10/06/2021 Weight 178.80 10/06/2021 Pain Scale 8.00 10/06/2021 Intravascular Systolic 140 10/06/2021 Intravascular Diastolic 90 10/06/2021 Respiratory Rate 18.00 10/06/2021 Heart Beat 78.00 01/05/2022 Body Temperature 98.20 01/05/2022 BMI 30.86 01/05/2022 Height 64.00 01/05/2022 Weight 179.80 01/05/2022 BSA 1.92 01/05/2022 Intravascular Systolic 143 01/05/2022 Intravascular Diastolic 69 01/05/2022 Oxygen Saturation 94.00 01/05/2022 Respiratory Rate 18.00 01/05/2022 Heart Beat 79.00 01/05/2022 Pain Scale 0.00 04/07/2022 Height 64.00 04/07/2022 Weight 183.80 04/07/2022 [...] Note Print Location: Unknown Date/Time Printed: 10/11/2024 10:34 ([facility]) Patient: RICHI CRUZ Sex: Male : 1950 [...] mg Amount in mL: 1.5 Pharmacy dispense: NDC: [id number] Dispense/Waste: 22.5/0 mg Given Dose/Discard: 22.5/0 mg Admin Details: Injection Location: Left-Dorsogluteal Time: 10:26 Double Checked By: Rachel Ashley RN on 10/02/2024 10:25 and Aziza Gay RN on 10/02/2024 10:25 * Nurse Note for: 11-JUL-24 [facility] Nurse Note Print Location: Unknown Date/Time Printed: 10/11/2024 10:34 ([facility]) Patient: RICHI CRUZ Sex: Male : 1950 [...] Note Print Location: Unknown Date/Time Printed: 10/11/2024 10:35 ([facility]) Patient: RICHI CRUZ Sex: Male : 1950 [...] Pharmacy plan: Dispense/Waste: 22.5/0 mg Pharmacy dispense: [facility]DC: [id number] Dispense/Waste: 22.5/0 mg Given Dose/Discard: 22.5/0 mg Admin Details: Injection Location: Right-Dorsogluteal, Comments: x 1 Time: 10:15 Double Checked By: Aislinn Blair RN on 04/11/2024 10:06 and Edie Blanco RN on 04/11/2024 10:06 * Nurse Note for: 11-JAN-24 [facility] Nurse Note Print Location: Unknown Date/Time Printed: 10/11/2024 10:35 ([facility]) Patient: RICHI CRUZ Sex: Male : 1950 [...] Pharmacy plan: Dispense/Waste: 22.5/0 mg Pharmacy dispense: [facility]: [id number] Dispense/Waste: 22.5/0 mg Given Dose/Discard: 22.5/0 mg Admin Details: Injection Location: Right-Dorsogluteal, Comments: x 1 Time: 10:03 Double Checked By: Edie Blanco RN on 01/11/2024 10:03 and Trang Dukes RN on 01/11/2024 10:03 * Nurse Note for: 11-OCT-23 [facility] Nurse Note Print Location: Unknown Date/Time Printed: 10/11/2024 10:35 ([facility]) Patient: RICHI CRUZ Sex: Male : 1950 [...] . Entered By Aziza Gay RN on :25 Medication Administration : Incident to: Shayne Castellanos MD Leuprolide D1 Q3M Hormone Therapy Leuprolide IM, 22.5 mg intramuscularly every 3 months, Allow Substitution GIVEN: 22.5 mg Pharmacy plan: Dispense/Waste: 22.5/0 mg Pharmacy dispense: [facility]: [id number] Dispense/Waste: 22.5/0 mg Given Dose/Discard: 22.5/0 mg Admin Details: Injection Location: Right-Dorsogluteal, Comments: Injection x 1. Time: 11:30 Double Checked By: Aziza Gay RN on 10/11/2023 11:28 and Emily Lujan RN on 10/11/2023 11:30 * Nurse Note for: 11-JUL-23 [facility] Nurse Note Print Location: Unknown Date/Time Printed: 10/11/2024 10:35 ([facility]) Patient: RICHI CRUZ Sex: Male : 1950 [...] Pharmacy plan: Dispense/Waste: 22.5/0 mg Pharmacy dispense: [facility]: [id number] Dispense/Waste: 22.5/0 mg Given Dose/Discard: 22.5/0 mg Admin Details: Injection Location: Right-Dorsogluteal Time: 10:20 Double Checked By: Trang Dukes RN on 07/11/2023 10:05 and Edie Blanco RN on 07/11/2023 11:01 * Nurse Note for: 12-APR-23 [facility] Nurse Note Print Location: Unknown Date/Time Printed: 10/11/2024 10:35 ([place]) Patient: RICHI CRUZ Sex: Male : 1950 [...] Pharmacy plan: Dispense/Waste: 22.5/0 mg Pharmacy dispense: [facility]: [phone] Dispense/Waste: 22.5/0 mg Given Dose/Discard: 22.5/0 mg Admin Details: Injection Location: Right-Dorsogluteal Time: 09:15 Double Checked By: Lily Raphael RN on 04/12/2023 09:27 and Emily Lujan RN on 04/12/2023 09:33 * Nurse Note for: 10-JAN-23 [facility] Nurse Note Print Location: Unknown Date/Time Printed: 10/11/2024 10:35 ([facility] [facility] Patient: RICHI CRUZ Sex: Male : 1950 [...] Pharmacy plan: Dispense/Waste: 22.5/0 mg Pharmacy dispense: [facility]: [id number] Dispense/Waste: 22.5/0 mg Given Dose/Discard: 22.5/0 mg Admin Details: Injection Location: Right-Dorsogluteal, Comments: injection x1 Time: 11:14 Double Checked By: Denisse Harris RN on 01/10/2023 11:11 and Marlen Lee on 01/10/2023 11:18 * Nurse Note for: 10-OCT-22 [facility] Nurse Note Print Location: Unknown Date/Time Printed: 10/11/2024 10:35 ([facility]) Patient: RICHI CRUZ Sex: Male : 1950 [...] treatment. Entered By Edie Blanco RN on : Patient Assessment : Positive results [...] Pharmacy plan: Dispense/Waste: 22.5/0 mg Pharmacy dispense: [facility]: [id number] Dispense/Waste: 22.5/0 mg Given Dose/Discard: 22.5/0 mg Admin Details: Injection Location: Right-Dorsogluteal, Comments: x 1 IM Time: :23 Checked By: Edie Blanco RN on 10/10/2022 10:25 * Nurse Note for: 07-JUL-22 [facility] Nurse Note Print Location: Unknown Date/Time Printed: 10/11/2024 10:35 ([facility]) Patient: RICHI CRUZ Sex: Male : 1950 [...] Pharmacy plan: Dispense/Waste: 22.5/0 mg Pharmacy dispense: [facility]: [id number] Dispense/Waste: 22.5/0 mg Given Dose/Discard: 22.5/0 mg Admin Details: Injection Location: Right-Dorsogluteal, Comments: Injection x 1. Time: 10:27 Double Checked By: Emliy Lujan RN on 07/07/2022 10:49 and Aziza Gay RN on 07/07/2022 12:46 * Nurse Note for: 07-APR-22 [facility] Nurse Note Print Location: Unknown Date/Time Printed: 10/11/2024 10:35 ([facility]) Patient: RICHI CRUZ Sex: Male : 1950 [...] treatment. Entered By Denisse Harris RN on :41 Patient Assessment : Positive results Assessment : [...] Pharmacy plan: Dispense/Waste: 22.5/0 mg Pharmacy dispense: [facility]: [id number] Dispense/Waste: 22.5/0 mg Given Dose/Discard: 22.5/0 mg Admin Details: Injection Location: Left-Dorsogluteal Time: 09:43 Double Checked By: Denisse Coleman RN on 04/07/2022 09:41 and Emily Lujan RN on 04/07/2022 09:49 * Nurse Note for: 05-JAN-22 [facility] Nurse Note Print Location: Unknown Date/Time Printed: 10/11/2024 10:35 ([facility]) Patient: RICHI CRUZ Sex: Male : 1950 [...] Pharmacy plan: Dispense/Waste: 22.5/0 mg Pharmacy dispense: [facility]: [id number] Dispense/Waste: 22.5/0 mg Given Dose/Discard: 22.5/0 mg Admin Details: Injection Location: Right-Dorsogluteal, Comments: x 1 Time: 11:01 Double Checked By: Edie Blanco RN on 01/05/2022 15:07 and Nikole Ornelas RN on 01/05/2022 16:03 * Nurse Note for: 06-OCT-21 [facility] Nurse Note Print Location: Unknown Date/Time Printed: 10/11/2024 10:35 ([facility]) Patient: RICHI CRUZ Sex: Male : 1950 [...] Pharmacy plan: Dispense/Waste: 22.5/0 mg Pharmacy dispense: [facility]: [id number] Dispense/Waste: 22.5/0 mg Given Dose/Discard: 22.5/0 mg Admin Details: Injection Location: Right-Dorsogluteal, Comments: x1 Time: 11:09 Double Checked By: Emily Lujan RN on 10/06/2021 13:17 and Isaura Hunter RN on 10/06/2021 13:18 * Nurse Note for: 06-JUL-21 [facility] Nurse Note Print Location: Unknown Date/Time Printed: 10/11/2024 10:35 ([facility]) Patient: RICHI CRUZ Sex: Male : 1950 [...] Pharmacy plan: Dispense/Waste: 22.5/0 mg Pharmacy dispense: [facility]: [id number] Dispense/Waste: 22.5/0 mg Given Dose/Discard: 22.5/0 mg Admin Details: Injection Location: Right-Dorsogluteal, Comments: 1 injection Time: 11:08 Checked By: Isaura Hunter RN on 07/06/2021 16:19 * Nurse Note for: 08-APR-21 [facility] Nurse Note Print Location: Unknown Date/Time Printed: 10/11/2024 10:35 ([facility]) Patient: RICHI CRUZ Sex: Male : 1950 [...] Pharmacy plan: Dispense/Waste: 22.5/0 mg Pharmacy dispense: [facility]: [id number] Dispense/Waste: 22.5/0 mg Given Dose/Discard: 22.5/0 mg Admin Details: Injection Location: Left-Dorsogluteal, Comments: X1 Time: 10:13 Checked By: Royce Manzanares RN on 04/08/2021 10:13 * Nurse Note for: 07-JAN-21 [facility] Nurse Note Print Location: Unknown Date/Time Printed: 10/11/2024 10:35 ([facility]) Patient: RICHI CRUZ Sex: Male : 1950 [...] time(s), Entered By Tiffanie Draper RN on :31 Medication Administration : Incident to: Shayne Castellanos MD Leuprolide D1 Q3M Hormone Therapy Leuprolide IM, 22.5 mg intramuscularly every 3 months, Allow Substitution GIVEN: 22.5 mg Pharmacy plan: Dispense/Waste: 22.5/0 mg Pharmacy dispense: [facility]: [id number] Dispense/Waste: 22.5/0 mg Given Dose/Discard: 22.5/0 mg Admin Details: Injection Location: Right-Dorsogluteal Time: 11:30 Checked By: Tiffanie Draper RN on 01/07/2021 12:31 * Nurse Note for: 08-OCT-20 [facility] Nurse Note Print Location: Unknown Date/Time Printed: 10/11/2024 10:35 ([facility]) Patient: RICHI CRUZ Sex: Male : 1950 [...] Pharmacy plan: Dispense/Waste: 22.5/0 mg Pharmacy dispense: [facility]: [id number] Dispense/Waste: 22.5/0 mg Given Dose/Discard: 22.5/0 mg Admin Details: Injection Location: Left-Dorsogluteal Time: 11:22 * Nurse Note for: 09-JUL-20 [facility] Nurse Note Print Location: Unknown Date/Time Printed: 10/11/2024 10:35 ([facility]) Patient: RICHI CRUZ Sex: Male : 1950 Date of Service: 07/09/2020 Allergies : No Known Allergies Vital Signs : Time: 10:12. Weight: 179.2 lb (81.28 kg). Height: 64 in (162.56 cm). BMI: 30.76 (kg/m2) . BSA: 1.92(m2) . Temperature: 98.1 F (36.72 C). Pulse: 70 (/min) . Respirations: 14 (/min) . Blood pressure: 120/68 (mm Hg). Pain Scale: 0. Entered by Yasmin Orosco MA 07/09/2020 10:14 Patient Assessment : Positive results Assessment : [...] Changes , Bleeding . Entered By Isaura Keller RN on 10:54 Medication Administration : Incident to: Shayne Castellanos MD Leuprolide D1 Q3M Hormone Therapy Leuprolide IM, 22.5 mg intramuscularly every 3 months, Allow Substitution GIVEN: 22.5 mg Pharmacy plan: Dispense/Waste: 22.5/0 mg Pharmacy dispense: [facility]: [id number] Dispense/Waste: 22.5/0 mg Given Dose/Discard: 22.5/0 mg Admin Details: Injection Location: Right-Dorsogluteal, Comments: x1 injection Time: 10:50 * Nurse Note for: 09-APR-20 [facility] Nurse Note Print Location: Unknown Date/Time Printed: 10/11/2024 10:35 ([facility]) Patient: RICHI CRUZ Sex: Male : 1950 Date of Service: 04/09/2020 Allergies : No Known Allergies Vital Signs : Time: 10:15. Weight: 184 lb (83.46 kg). Height: 64 in (162.56 cm). BMI: 31.58 (kg/m2) . BSA: 1.94 (m2) . Temperature: 98.1 F (36.72 C). Pulse: 66 (/min) . Respirations: 10 (/min) . Blood pressure: 110/70 (mm Hg). Pain Scale: 0. Entered by Samia Albarran MA 04/09/2020 10:17 Patient Assessment : Positive results Assessment [...] . Entered By Emily Lujan RN on 10:40 Medication Administration : Incident to: Shayne Castellanos MD Leuprolide D1 Q3M Hormone Therapy Leuprolide IM, 22.5 mg intramuscularly every 3 months, Allow Substitution GIVEN: 22.5 mg Pharmacy plan: Dispense/Waste: 22.5/0 mg Pharmacy dispense: [facility]: [id number] Dispense/Waste: 22.5/0 mg Given Dose/Discard: 22.5/0 mg Admin Details: Injection Location: Right-Hip UOQ, Comments: x1 Time: 10:40 Double Checked By: Emily Lujan RN on 04/09/2020 10:40 and Isaura Keenan RN on 04/09/2020 10:41 * Nurse Note for: 09-JAN-20 [facility] Nurse Note Print Location: Unknown Date/Time Printed: 10/11/2024 10:35 ([facility]) Patient: RICHI CRUZ Sex: Male : 1950 Date of Service: 01/09/2020 Allergies : No Known Allergies Vital Signs : Time: 09:56. Weight: 182.8 lb (82.92 kg). Height: 64 in (162.56 cm). BMI: 31.38 (kg/m2) . BSA: 1.93(m2) . Temperature: 98 F (36.67 C) oral. Pulse: 78 (/min) . Respirations: 14 (/min) . Blood pressure: 138/76 (mm Hg). Pain Scale: 0. Entered by Rosetta Wilkinson MA 01/09/2020 09:57 Patient Assessment : Positive results Assessment : [...] . Entered By Emily Lujan RN on 10:37 Medication Administration : Incident to: Shayne Castellanos MD Leuprolide D1 Q3M Hormone Therapy Leuprolide IM, 22.5 mg intramuscularly every 3 months, Allow Substitution GIVEN: 22.5 mg Pharmacy plan: Dispense/Waste: 22.5/0 mg Pharmacy dispense: [facility]: [id number] Dispense/Waste: 22.5/0 mg Given Dose/Discard: 22.5/0 mg Admin Details: Injection Location: Right-Hip UOQ, Comments: x1 Time: 10:36 Double Checked By: Emily Lujan RN on 01/09/2020 10:36 and Isaura Keenan RN on 01/09/2020 10:37 * Nurse Note for: 10-OCT-19 [facility] Nurse Note Print Location: Unknown Date/Time Printed: 10/11/2024 10:35 ([facility]) Patient: RICHI CRUZ Sex: Male : 1950 Date of Service: 10/10/2019 Allergies : No Known Allergies Vital Signs : Time: 10:29. Weight: 180.2 lb (81.74 kg). Height: 64 in (162.56 cm). BMI: 30.93 (kg/m2) . BSA: 1.92(m2) . Temperature: 98.3 F (36.83 C) oral. Pulse: 72 (/min) . Respirations: 14 (/min) . Blood pressure: 112/68 (mm Hg) right arm Regular. Pain Scale: 7. Entered by Rosetta Wilkinson MA 10/10/2019 10:31 Patient Assessment : Positive results Assessment : Labs Verified: Yes, Alert, oriented with appropriate behavior. Complains of Pain-7. Negative results Assessment : Gait Changes. Denies Neuropathy , Fatigue , Anxiety/Depression , Fever, Chills or Night Sweats , Signs of Infection , Skin Changes , Dizziness , Headaches , Nausea , Breathing Changes , Cough , Mouth Sores/Stomatitis/Mucositis , Changes in Appetite , Vomiting , Diarrhea , Constipation , Urinary Changes , Bleeding . Entered By Emily Lujan RN on 11:03 Medication Administration : Incident to: Shayne Castellanos MD Leuprolide D1 Q3M Hormone Therapy Leuprolide IM, 22.5 mg intramuscularly every 3 months, Allow Substitution GIVEN: 22.5 mg Pharmacy plan: Dispense/Waste: 22.5/0 mg Pharmacy dispense: [facility]: [id number] Dispense/Waste: 22.5/0 mg Given Dose/Discard: 22.5/0 mg Admin Details: Injection Location: Left-Dorsogluteal, Comments: x1 Time: 11:04 Double Checked By: Emily Lujan RN on 10/10/2019 11:04 and Isaura Keenan RN on 10/10/2019 11:04 * Nurse Note for: 09-JUL-19 [facility] Nurse Note Print Location: Unknown Date/Time Printed: [facility]11[facility]2024 10:[facility] Patient: RICHI CRUZ Sex: Male : 1950 Date of Service: 07/09/2019 Allergies : No Known Allergies Vital Signs : Time: 10:42. Weight: 187.2 lb (84.91 kg). Height: 64 in (162.56 cm). BMI: 32.13 (kg/m2) . BSA: 1.96(m2) . Temperature: 98.2 F (36.78 C). Pulse: 74 (/min) . Respirations: 14 (/min) . Blood pressure: 128/74 (mm Hg). Pain Scale: 0. Entered by Rachel Harrison MA 07/09/2019 10:47 Patient Assessment : Positive results Assessment : [...] . Entered By Isaura Hunter RN on 12:07 Medication Administration : Incident to: Shayne Castellanos MD Leuprolide D1 Q3M Hormone Therapy Leuprolide IM, 22.5 mg intramuscularly every 3 months, Allow Substitution GIVEN: 22.5 mg Pharmacy plan: Dispense/Waste: 22.5/0 mg Pharmacy dispense: [facility]: [id number] Dispense/Waste: 22.5/0 mg Given Dose/Discard: 22.5/0 mg Admin Details: Injection Location: Right-Dorsogluteal Time: 11:30 Double Checked By: Isaura Hunter RN on 07/09/2019 12:07 and Felisha Putnam RN on 07/09/2019 12:07 * Nurse Note for: 09-APR-19 [facility] Nurse Note Print Location: Unknown Date/Time Printed: 10[facility]11[facility]2024 10:[facility] Patient: RICHI CRUZ Sex: Male : 1950 Date of Service: 04/09/2019 Allergies : No Known Allergies Vital Signs : Time: 10:34. Weight: 185 lb (83.91 kg). Height: 64 in (162.56 cm). BMI: 31.75 (kg/m2) . BSA: 1.95 (m2) . Temperature: 98.1 F (36.72 C). Pulse: 72 (/min) . Respirations: 16 (/min) . Blood pressure: 134/82 (mm Hg). Pain Scale: 7. Entered by Pam Harris MA 04/09/2019 10:36 Patient Assessment : Positive results Assessment : Labs Verified: Yes, Alert, oriented with appropriate behavior. Complains of Pain-7. Negative results Assessment : Gait Changes. Denies Neuropathy , Fatigue , Anxiety/Depression , Fever, Chills or Night Sweats , Signs of Infection , Skin Changes , Dizziness , Headaches , Nausea , Breathing Changes , Cough , Mouth Sores/Stomatitis/Mucositis , Changes in Appetite , Vomiting , Diarrhea , Constipation , Urinary Changes , Bleeding . Entered By Emily Lujan RN on 11:42 Medication Administration : Incident to: Tyler Lowe MD Leuprolide D1 Q3M Hormone Therapy Leuprolide IM, 22.5 mg intramuscularly every 3 months, Allow Substitution GIVEN: 22.5 mg Pharmacy plan: Dispense/Waste: 22.5/0 mg Pharmacy dispense: [facility]: [id number] Dispense/Waste: 22.5/0 mg Given Dose/Discard: 22.5/0 mg Admin Details: Injection Location: Right-Dorsogluteal Time: 11:10 Double Checked By: Emily Lujan RN on 04/09/2019 11:42 and Mackenzie Davidson RN on 04/09/2019 12:16
--- OUTSIDE RECORDS SUMMARY | 2024-10-11 10:36 | XMS_ITS ---
Author Name Interface, [id number] lity Address [address] [place] [address] [facility] Address [address] [place] [address] Allergies and Adverse Reactions Medication/Group Name Reaction [...] 15 MIN 10/11/2023 APPOINTMENT PORT FLUSH 15 [place] N 10/11/2023 APPOINTMENT LAB 15 MIN 10/11/2023 [...] Leup rolide D1 Q3M 04/09/2020 APPOINTMENT RTC STAVE AND BOLT EQUALIZER/PA chemo 04/09/2020 APPOINTMENT Lab 04/09/2020 APPOINTMENT Chemo [...] APPOINTMENT 3 month 10/10/2019 APPOINTMENT 3 month 10/10/2019 LABORDER CBC w/ auto diff 10/10/2019 [...] Visit OV 15 MIN Encounters Date Name 10/10/2019 Anemia 10/10/2019 Depression 10/10/2019 Essential hypertensi on (disorder) 10/10/2019 Headache 10/10/2019 Insomnia 10/10/2019 Prostate cancer in s itu 10/10/2019 Secondary malignant neoplasm of bone (disorder) Immunizations Date Name Route Dose Instructions Refusal Reason Stat us Flu vaccine - Adult Diagnostic Results Date Type Test Units Lower Limit Upper Limit Result Flag Comments Status Ordered By Specimen Source Lab Address 10/09 CBC w/ auto diff WBC 10*3/u L 4.2 9.1 4.8 FINAL Shayne Castellanos B&Whole Blood Formerly [facility] ([facility]), [address], [place] [facility] [place] [address] 10/09 CBC w/ auto diff Alan # (ANC) 10*3/u L 1.78 5.38 3.48 FINAL Shayne Castellanos B&Whole Blood Formerly [facility] ([facility]), [address], [place] [facility] [place] [address] 10/09 CBC w/ auto diff LY # 10*3/u L 1.32 3.57 0.78 Low FINAL Shayne Castellanos B&Whole Blood Formerly [facility] ([facility]), [address], [place] [facility] [place] [address] 10/09 CBC w/ auto diff MO # 10*3/u L 0.3 0.82 0.38 FINAL Shayne Almontekathleen B&Whole Blood Formerly [facility] ([facility]), [address], [place] [facility] [place] [address] 10/09 CBC w/ auto diff EO # 10*3/u lL 0.04 0.54 0.18 FINAL Shayne Almontes B&Whole Blood [facility] ([facility]), [address], [place] [facility] [place] [address] 10/09 CBC w/ auto diff BA # 10*3/u L 0.01 0.08 0.02 FINAL Shayne Almontes B&Whole Blood [facility] ([facility]), [address], [address] [facility] [place] [facility] 10/09 CBC w/ auto diff Alan % % 34.0 67.9 71.9 High FINAL Shayne Almontes B&Whole Blood [facility] ([facility]), [address], [address] [facility] [place] [facility] 10/09 CBC w/ auto diff LY % % 21.8 53.1 16.1 Low FINAL Shayne Almontes B&Whole Blood [facility] ([facility]), [address], [address] [facility] [place] [facility] 10/09 CBC w/ auto diff MO % % 5.3 12.2 7.9 FINAL Shayne Almontes B&Whole Blood [facility] ([facility]), [address], [address] [facility] [place] [facility] 10/09 CBC w/ auto diff EO % % 0.8 7.0 3.7 FINAL Shayne Almontes B&Whole Blood [facility] ([facility]), [address], [address] [facility] [place] [facility] 10/09 CBC w/ auto diff BA % % 0.2 1.2 0.4 FINAL Shayne Almontes B&Whole Blood [facility] ([facility]), [address], [place] [facility] [place] [address] 10/09 CBC w/ auto diff RBC 10*6/u L 4.63 6.08 4.36 Low FINAL Shayne Almontes B&Whole Blood [facility] ([facility]), [address], [address] [facility] [place] [facility] 10/09 CBC w/ auto diff HGB g/dL 13.7 17.5 12.9 Low FINAL Shayne Almontes B&Whole Blood [facility] ([facility]), [address], [place] [facility] [place] [address] 10/09 CBC w/ auto diff HCT % 40.1 51.0 37.6 Low FINAL Shayne Suzys B&Whole Blood [facility] ([facility]), [address], [place] [facility] [place] [address] 10/09 CBC w/ auto diff MCV fL 79.0 92.2 86.2 FINAL Shayne Castellanos B&Whole Blood Formerly [facility] ([facility]), [address], [place] [facility] [place] [address] 10/09 CBC w/ auto diff MCH pg 25.7 32.2 29.6 FINAL Shayne Castellanos B&Whole Blood Formerly [facility] ([facility]), [address], [place] [facility] [place] [address] 10/09 CBC w/ auto diff MCHC g/dL 32.3 36.5 34.3 FINAL Shayne Castellanos B&Whole Blood Formerly [facility] ([facility]), [address], [place] [facility] [place] [address] 10/09 CBC w/ auto diff RDW-C V, % % 11.6 14.4 13.3 FINAL Shayne Castellanos B&Whole Blood Formerly [facility] ([facility]), [address], [place] [facility] [place] [address] 10/09 CBC w/ auto diff PLT 10*3/u L 163.0 337.0 194.0 FINAL Shayne Castellanos B&Whole Blood Formerly [facility] ([facility]), [address], [place] [address] 10/09 PSA, total ng/mL <0.04 FINAL Shayne Castellanos Serum [facility], [address] 10/09 CMP - Vitro s 250R Album in g/dL 3.5 5.0 4.4 FINAL Shayne Castellanos S&Serum [facility] ([facility]), [address] [place] [address] [place] [address] 10/09 CMP - Vitro s 250R Alkal ine phosp hatas e U/L 38.0 126.0 57 FINAL Shayne Castellanos S&Serum [facility] ([facility]), [address] [place] [address] [place] [address] 10/09 CMP - Vitro s 250R ALT/S GPT U/L 29 FINAL Shayne Castellanos S&Serum [facility] ([facility]), [address] [place] [address] [place] [address] 10/09 CMP - Vitro s 250R AST/S GOT U/L 17.0 59.0 34 FINAL Shayne Almontes S&Serum [facility] ([facility]), [address] [place] [address] 10/09 CMP - Vitro s 250R Bilir ubin, total mg/dL 0.2 1.3 0.5 FINAL Shayne Castellanos S&Serum [facility] ([facility]), [address] [place] [address] [place] [address] 10/09 CMP - Vitro s 250R BUN mg/dL 9.0 20.0 19 FINAL Shayne [facility] S&Serum [facility] ([facility]), [address] [place] [address] [place] [address] 10/09 CMP - Vitro s 250R BUN/C reati nine ratio 20.7 FINAL Shayne [facility] S&Serum [facility] ([facility]), [address] [place] [address] 10/09 CMP - Vitro s 250R Calci um mg/dL 8.4 10.2 9.8 FINAL Shayne [facility] S&Serum [facility] ([facility]), [address] [place], [place] [id number] 10/09 CMP - Vitro s 250R Chlor naif mmol/L 98.0 107.0 107 FINAL Shayne [facility] S&Serum [facility] ([facility]), [address] [place] [address] 10/09 CMP - Vitro s 250R Creat inine mg/dL 0.66 1.25 0.92 FINAL [facility] ([facility]), [address] [place], [place] [id number] 10/09 CMP - Vitro s 250R GFR non-A frica n Ameri can, estim ated mL/min /1.73m >60.0 FINAL Shayne [facility] S&Serum [facility] ([facility]), [address] [place] [address] [place] [address] 10/09 CMP - Vitro s 250R GFR Afric an Ameri can, estim ated mL/min /1.73m >60.0 FINAL Shayne [facility] S&Serum [facility] ([facility]), [address] [place], [place] [id number] 10/09 CMP - Vitro s 250R CO2 mmol/L 22.0 30.0 22 FINAL [facility] S&Serum [facility] ([facility]), [address] [place], [place] [id number] 10/09 CMP - Vitro s 250R Gluco se mg/dL 74.0 106.0 151 High FINAL Shayne [facility] S&Serum [facility] ([facility]), [address] [place] [address] [place] [address] 10/09 CMP - Vitro s 250R Potas sium mmol/L 3.5 5.1 3.7 FINAL Shayne [facility] S&Serum [facility] ([facility]), [address] [place] [address] [place] [address] 10/09 CMP - Vitro s 250R Total prote in g/dL 6.3 8.2 7.3 FINAL [facility] S&Serum [facility] ([facility]), [address] [place] [address] [place] [address] 10/09 CMP - Vitro s 250R A/G ratio 1.0 2.0 1.5 FINAL [facility] S&Serum [facility] ([facility]), [address] [place] [address] [place] [address] 10/09 CMP - Vitro s 250R Sodiu m mmol/L 137.0 145.0 139 FINAL [facility] S&Serum [facility] ([facility]), [address] [place] [address] [place] [address] 10/09 CMP - Vitro s 250R Anion gap, mmol/ L mmol/L 4.0 15.0 10.0 FINAL [facility] S&Serum [facility] ([facility]), [address] [place] [address] [place] [address] 10/09 Depre naraon gabe brandt (proc edure ) 10 Criti gigi High # 9 answered at level 1 01/08 CBC w/ auto diff WBC 10*3/u L 4.2 9.1 5.0 FINAL Ovesen B&Whole Blood [facility] ([facility]), [address], [address] [place] [address] 01/08 CBC w/ auto diff Alan # (ANC) 10*3/u L 1.78 5.38 3.34 FINAL Ovesen B&Whole Blood Formerly [facility] ([facility]), [address], [address] [place] [address] 01/08 CBC w/ auto diff LY # 10*3/u L 1.32 3.57 0.93 Low FINAL Ovesen B&Whole Blood [facility] ([facility]), [address], [address] [place] [address] 01/08 CBC w/ auto diff MO # 10*3/u L 0.3 0.82 0.52 FINAL Ovesen B&Whole Blood Formerly [facility] ([facility]), [address], [address] [place] [address] 01/08 CBC w/ auto diff EO # 10*3/u lL 0.04 0.54 0.18 FINAL Ovesen B&Whole Blood Formerly [facility] ([facility]), [address], [address] [place] [address] 01/08 CBC w/ auto diff BA # 10*3/u L 0.01 0.08 0.01 FINAL Ovesen B&Whole Blood Former[facility] ([facility]), [address], [address] [place] [address] 01/08 CBC w/ auto diff Alan % % 34.0 67.9 67.1 FINAL Ovesen B&Whole Blood Former[facility] ([facility]), [address], [address] [place] [address] 01/08 CBC w/ auto diff LY % % 21.8 53.1 18.7 Low FINAL Ovesen B&Whole Blood Former[facility] ([facility]), [address], [address] [place] [address] 01/08 CBC w/ auto diff MO % % 5.3 12.2 10.4 FINAL Ovesen B&Whole Blood Former[facility] ([facility]), [address], [address] [place] [address] 01/08 CBC w/ auto diff EO % % 0.8 7.0 3.6 FINAL Ovesen B&Whole Blood Former[facility] ([facility]), [address], [address] [place] [address] 01/08 CBC w/ auto diff BA % % 0.2 1.2 0.2 FINAL Ovesen B&Whole Blood Former[facility] ([facility]), [address], [address] [place] [address] 01/08 CBC w/ auto diff RBC 10*6/u L 4.63 6.08 4.39 Low FINAL Ovesen [facility] [address], [address] [place], [place] [id number] 01/08 CBC w/ auto diff HGB g/dL 13.7 17.5 13.1 Low FINAL Ovesen B&Whole Blood Formerly [facility] ([facility]), [address], [address] [place] [address] 01/08 CBC w/ auto diff HCT % 40.1 51.0 38.7 Low FINAL Ovesen B&Whole Blood Formerly [facility] ([facility]), [address], [address] [place] [address] 01/08 CBC w/ auto diff MCV fL 79.0 92.2 88.2 FINAL Ovesen B&Whole Blood Formerly [facility] ([facility]), [address], [address] [place] [address] 01/08 CBC w/ auto diff MCH pg 25.7 32.2 29.8 FINAL Ovesen B&Whole Blood Formerly [facility] ([facility]), [address], [address] [place] [address] 01/08 CBC w/ auto diff MCHC g/dL 32.3 36.5 33.9 FINAL Ovesen B&Whole Blood Formerly [facility] ([facility]), [address], [address] [place] [address] 01/08 CBC w/ auto diff RDW-C V, % % 11.6 14.4 13.4 FINAL Ovesen B&Whole Blood Former[facility] ([facility]), [address], [address] [place] [address] 01/08 CBC w/ auto diff PLT 10*3/u L 163.0 337.0 58.0 Low FINAL Ovesen B&Whole Blood Former[facility] ([facility]), [address], [address] [place] [address] 01/08 PSA, total ng/mL <0.04 FINAL Ovesen S&Serum [facility] ([facility]), [address] [place] [address] 01/08 CMP - Core Lab Album in g/dL 3.4 5.0 4.2 FINAL Ovesen S&Serum [facility] ([facility]), [address] [place] [address] 01/08 CMP - Core Lab Alkal ine phosp hatas e U/L 46.0 116.0 64 FINAL Ovesen S&Serum [facility] ([facility]), [address] [place] [address] 01/08 CMP - Core Lab ALT/S GPT U/L 10.0 49.0 38 FINAL Ovesen S&Serum [facility] ([facility]), [address] [place] [address] 01/08 CMP - Core Lab AST/S GOT U/L 0.0 34.0 27 FINAL Ovesen S&Serum [facility] ([facility]), [address] [place] [address] 01/08 CMP - Core Lab Calci um mg/dL 8.7 10.4 9.3 FINAL Ovesen S&Serum [facility] ([facility]), [address] [place] [address] 01/08 CMP - Core Lab Chlor naif mmol/L 98.0 107.0 103 FINAL Ovesen S&Serum [facility] ([facility]), [address] [place] [address] 01/08 CMP - Core Lab CO2 mmol/L 20.0 31.0 23.8 FINAL Ovesen S&Serum [facility] ([facility]), [address] [place] [address] 01/08 CMP - Core Lab Creat inine mg/dL 0.6 1.1 0.93 FINAL Ovesen S&Serum [facility] ([facility]), [address] [place] [address] 01/08 CMP - Core Lab GFR non-A frica n Ameri can, estim ated mL/min /1.73m >60.0 FINAL Ovesen S&Serum [facility] ([facility]), [address] [place] [address] 01/08 CMP - Core Lab GFR Afric an Ameri can, estim ated mL/min /1.73m >60.0 FINAL Ovesen S&Serum [facility] ([facility]), [address] [place] [address] 01/08 CMP - Core Lab Gluco se mg/dL 74.0 106.0 111 High FINAL Ovesen S&Serum [facility] ([facility]), [address] [place] [address] 01/08 CMP - Core Lab Potas sium mmol/L 3.5 5.1 4.2 FINAL Ovesen S&Serum [facility] ([facility]), [address] [place] [address] 01/08 CMP - Core Lab Sodiu m mmol/L 136.0 145.0 140 FINAL Ovesen S&Serum [facility] ([facility]), [address] [place] [address] 01/08 CMP - Core Lab Anion gap, mmol/ L mmol/L 4.0 15.0 13.2 FINAL Ovesen S&Serum [facility] ([facility]), [address] [place] [address] 01/08 CMP - Core Lab Bilir ubin, total mg/dL 0.3 1.2 0.4 FINAL Ovesen S&Serum [facility] ([facility]), [address] [place] [address] 01/08 CMP - Core Lab Total prote in g/dL 5.7 8.2 6.5 FINAL Ovesen S&Serum [facility] ([facility]), [address] [place] [address] 01/08 CMP - Core Lab A/G ratio 1.0 2.0 1.8 FINAL Ovesen S&Serum [facility] ([facility]), [address] [place] [address] 01/08 CMP - Core Lab BUN mg/dL 9.0 23.0 20 FINAL Ovesen S&Serum [facility] ([facility]), [address] [place] [address] 01/08 CMP - Core Lab BUN/C reati nine ratio 0.0 25.0 21.5 FINAL Ovesen S&Serum [facility] ([facility]), [address] [place] [address] 04/09 CBC w/ auto diff WBC 10*3/u L 4.2 9.1 5.6 FINAL Shayne Jasmin B&Whole Blood [facility] ([facility]), [address], [address] [facility] [address] 04/09 CBC w/ auto diff Alan # (ANC) 10*3/u L 1.78 5.38 3.83 FINAL Shayne Castellanos B&Whole Blood Former[facility] ([facility]), [address], [address] [place] [address] 04/09 CBC w/ auto diff LY # 10*3/u L 1.32 3.57 0.90 Low FINAL Shayne Almontes B&Whole Blood [facility] ([facility]), [address], [address] [place] [address] 04/09 CBC w/ auto diff MO # 10*3/u L 0.3 0.82 0.62 FINAL Shayne Almontes B&Whole Blood [facility] ([facility]), [address], [address] [place] [address] 04/09 CBC w/ auto diff EO # 10*3/u lL 0.04 0.54 0.18 FINAL Shayne Almontes B&Whole Blood [facility] ([facility]), [address], [address] [place] [address] 04/09 CBC w/ auto diff BA # 10*3/u L 0.01 0.08 0.02 FINAL Shayne Castellanos B&Whole Blood [facility] ([facility]), [address], [address] [place] [address] 04/09 CBC w/ auto diff Alan % % 34.0 67.9 69.0 High FINAL Shayne Almontes B&Whole Blood [facility] ([facility]), [address], [address] [place] [address] 04/09 CBC w/ auto diff LY % % 21.8 53.1 16.2 Low FINAL Shayne Almontes B&Whole Blood [facility] ([facility]), [address], [address] [place] [address] 04/09 CBC w/ auto diff MO % % 5.3 12.2 11.2 FINAL Shayne Almontes B&Whole Blood [facility] ([facility]), [address], [address] [place] [address] 04/09 CBC w/ auto diff EO % % 0.8 7.0 3.2 FINAL Shayne Castellanos B&Whole Blood [facility] ([facility]), [address], [address] [place] [id number] 04/09 CBC w/ auto diff BA % % 0.2 1.2 0.4 FINAL Shayne Castellanos B&Whole Blood [facility] ([facility]), [address], [address] [place] [address] 04/09 CBC w/ auto diff RBC 10*6/u L 4.63 6.08 4.57 Low FINAL Shayne Almontes B&Whole Blood [facility] ([facility]), [address], [address] [place] [address] 04/09 CBC w/ auto diff HGB g/dL 13.7 17.5 13.5 Low FINAL Shayne Almontes B&Whole Blood [facility] ([facility]), [address], [address] [place] [address] 04/09 CBC w/ auto diff HCT % 40.1 51.0 39.5 Low FINAL Shayne Castellanos B&Whole Blood [facility] ([facility]), [address], [address] [place] [address] 04/09 CBC w/ auto diff MCV fL 79.0 92.2 86.4 FINAL Shayne Almontes B&Whole Blood [facility] ([facility]), [address], [address] [place] [address] 04/09 CBC w/ auto diff MCH pg 25.7 32.2 29.5 FINAL Shayne Almontes B&Whole Blood [facility] ([facility]), [address], [address] [place] [id number] 04/09 CBC w/ auto diff MCHC g/dL 32.3 36.5 34.2 FINAL Shayne Almontes B&Whole Blood [facility] ([facility]), [address], [address] [place] [address] 04/09 CBC w/ auto diff RDW-C V, % % 11.6 14.4 13.3 FINAL Shayne Almontes B&Whole Blood [facility] ([facility]), [address], [address] [place] [id number] 04/09 CBC w/ auto diff PLT 10*3/u L 163.0 337.0 184.0 FINAL Shayne Castellanos B&Whole Blood [facility] [address], [address] [facility] [place] [address] 04/09 PSA, total ng/mL <0.04 FINAL Shayne Castellanos S&Serum [facility] ([facility]), [address] [place] [address] [place] [address] 04/09 CMP - Core Lab Album in g/dL 3.4 5.0 4.3 FINAL Shayne Castellanos S&Serum [facility] ([facility]), [address] [place] [address] [place] [address] 04/09 CMP - Core Lab Alkal ine phosp hatas e U/L 46.0 116.0 61 FINAL Shayne Castellanos S&Serum [facility] ([facility]), [address] [place] [address] [place] [address] 04/09 CMP - Core Lab ALT/S GPT U/L 10.0 49.0 32 FINAL Shayne Castellanos S&Serum [facility] ([facility]), [address] [place] [address] [place] [address] 04/09 CMP - Core Lab AST/S GOT U/L 0.0 34.0 28 FINAL Shayne Castellanos S&Serum [facility] ([facility]), [address] [place] [address] [place] [address] 04/09 CMP - Core Lab Calci um mg/dL 8.7 10.4 10.6 High FINAL Shayne Castellanos S&Serum [facility] ([facility]), [address] [place] [address] [place] [address] 04/09 CMP - Core Lab Chlor naif mmol/L 98.0 107.0 104 FINAL Shayne Castellanos S&Serum [facility] ([facility]), [address] [place] [address] [place] [address] 04/09 CMP - Core Lab CO2 mmol/L 20.0 31.0 28.1 FINAL Shayne Castellanos S&Serum [facility] ([facility]), [address] [place] [address] [place] [address] 04/09 CMP - Core Lab Creat inine mg/dL 0.6 1.1 0.89 FINAL Shayne Almontes S&Serum [facility] ([facility]), [address] [place] [address] [place] [address] 04/09 CMP - Core Lab GFR non-A frica n Ameri can, estim ated mL/min /1.73m >60.0 FINAL Shayne [facility] S&Serum [facility] ([facility]), [address] [place] [address] [place] [address] 04/09 CMP - Core Lab GFR Afric an Ameri can, estim ated mL/min /1.73m >60.0 FINAL Shayne Almontes S&Serum [facility] ([facility]), [address] [place] [address] [place] [address] 04/09 CMP - Core Lab Gluco se mg/dL 74.0 106.0 98 FINAL Shayne Almontes S&Serum [facility] ([facility]), [address] [place] [address] [place] [address] 04/09 CMP - Core Lab Potas sium mmol/L 3.5 5.1 4.3 FINAL Shayne Almontes S&Serum [facility] ([facility]), [address] [place] [address] [place] [address] 04/09 CMP - Core Lab Sodiu m mmol/L 136.0 145.0 139 FINAL Shayne Almontes S&Serum [facility] ([facility]), [address] [place] [address] [place] [address] 04/09 CMP - Core Lab Anion gap, mmol/ L mmol/L 4.0 15.0 6.9 FINAL Shayne Almontes S&Serum [facility] ([facility]), [address] [place] [address] [place] [address] 04/09 CMP - Core Lab Bilir ubin, total mg/dL 0.3 1.2 0.4 FINAL Shayne Almontes S&Serum [facility] ([facility]), [address] [place] [address] [place] [address] 04/09 CMP - Core Lab Total prote in g/dL 5.7 8.2 6.9 FINAL Shayne [facility] S&Serum [facility] ([facility]), [address] [place] [address] [place] [address] 04/09 CMP - Core Lab A/G ratio 1.0 2.0 1.7 FINAL Shayne [facility] S&Serum [facility] ([facility]), [address] [place] [address] [place] [address] 04/09 CMP - Core Lab BUN mg/dL 9.0 23.0 21 FINAL Shayne [facility] S&Serum [facility] ([facility]), [address] [place] [address] [place] [address] 04/09 CMP - Core Lab BUN/C reati nine ratio 0.0 25.0 23.6 FINAL [facility] S&Serum [facility] ([facility]), [address] [place] [address] [place] [address] 07/09 CMP - Core Lab Sodiu m mmol/L 136.0 145.0 141 FINAL [facility] ([facility]), [address] [place] [address] [place] [address] 07/09 CMP - Core Lab Potas sium mmol/L 3.5 5.1 4.6 FINAL [facility] ([facility]), [address] [place] [address] [place] [address] 07/09 CMP - Core Lab Chlor naif mmol/L 98.0 107.0 108 High FINAL [facility] ([facility]), [address] [place] [address] [place] [address] 07/09 CMP - Core Lab CO2 mmol/L 20.0 31.0 27.1 FINAL [facility] ([facility]), [address] [place] [address] [place] [address] 07/09 CMP - Core Lab Anion gap, mmol/ L mmol/L 4.0 15.0 5.9 FINAL [facility] ([facility]), [address] [place] [address] [place] [id number] 07/09 CMP - Core Lab BUN mg/dL 9.0 23.0 25 High FINAL [facility] ([facility]), [address] [place] [address] [place] [address] 07/09 CMP - Core Lab BUN/C reati nine ratio 0.0 25.0 26.3 High FINAL [facility] ([facility]), [address] [place] [address] 59971 07/09 CMP - Core Lab Creat inine mg/dL 0.6 1.1 0.95 FINAL [facility] ([facility]), [address] [place] [address] 75400 07/09 CMP - Core Lab GFR non-A frica n Ameri can, estim ated mL/min /1.73m >60.0 FINAL [facility] ([facility]), [address] [place] [address] 00514 07/09 CMP - Core Lab GFR Afric an Ameri can, estim ated mL/min /1.73m >60.0 FINAL [facility] ([facility]), [address] [place] [address] 08179 07/09 CMP - Core Lab Gluco se mg/dL 74.0 106.0 106 FINAL [facility] ([facility]), [address] [place] [address] 20207 07/09 CMP - Core Lab Calci um mg/dL 8.7 10.6 10.2 FINAL [facility] ([facility]), [address] [place] [address] 81668 07/09 CMP - Core Lab Album in g/dL 3.4 5.0 3.9 FINAL [facility] ([facility]), [address] [place] [address] 41888 07/09 CMP - Core Lab Total prote in g/dL 5.7 8.2 6.6 FINAL [facility] ([facility]), [address] [place] [address] 48653 07/09 CMP - Core Lab A/G ratio 1.0 2.0 1.4 FINAL [facility] ([facility]), [address] [place] [address] 56576 07/09 CMP - Core Lab Alkal ine phosp hatas e U/L 46.0 116.0 47 FINAL [facility] ([facility]), [address] [place] [address] 07/09 CMP - Core Lab ALT/S GPT U/L 10.0 49.0 18 FINAL [facility] ([facility]), [address] [place] [address] [place] [address] 07/09 CMP - Core Lab AST/S GOT U/L 0.0 34.0 21 FINAL [facility] ([facility]), [address] [place] [address] [place] [address] 07/09 CMP - Core Lab Bilir ubin, total mg/dL 0.3 1.2 0.5 FINAL [facility] ([facility]), [address] [place] [address] 21703 07/09 PSA, total ng/mL 0.04 FINAL [facility] ([facility]), [address] [place] [address] 12585 07/09 CBC w/ auto diff WBC 10*3/u L 4.2 9.1 4.8 FINAL [facility] (T), [address], [address] [facility] [address] 07/09 CBC w/ auto diff Alan # (ANC) 10*3/u L 1.78 5.38 3.39 FINAL [facility] (T), [address], [address] [facility] [address] 07/09 CBC w/ auto diff LY # 10*3/u L 1.32 3.57 0.71 Low FINAL [facility] ([facility]), [address], [address] [facility] [address] 07/09 CBC w/ auto diff MO # 10*3/u L 0.3 0.82 0.57 FINAL [facility] ([facility]), [address], [address] [facility] [address] 07/09 CBC w/ auto diff EO # 10*3/u lL 0.04 0.54 0.11 FINAL [facility] ([facility]), [address], [address] [place] [address] 07/09 CBC w/ auto diff BA # 10*3/u L 0.01 0.08 0.02 FINAL [facility] (T), [address], [address] [place] [address] 07/09 CBC w/ auto diff Alan % % 34.0 67.9 70.6 High FINAL [facility] (T), [address], [address] [place] [address] 07/09 CBC w/ auto diff LY % % 21.8 53.1 14.8 Low FINAL [facility] (T), [address], [address] [place] [address] 07/09 CBC w/ auto diff MO % % 5.3 12.2 11.9 FINAL [facility] (T), [address], [address] [place] [address] 07/09 CBC w/ auto diff EO % % 0.8 7.0 2.3 FINAL [facility] (T), [address], [address] [place] [address] 07/09 CBC w/ auto diff BA % % 0.2 1.2 0.4 FINAL [facility] (T), [address], [address] [place] [address] 07/09 CBC w/ auto diff RBC 10*6/u L 4.63 6.08 4.43 Low FINAL [facility] ([facility]), [address], [address] [place] [address] 07/09 CBC w/ auto diff HGB g/dL 13.7 17.5 12.7 Low FINAL [facility] (T), [address], [address] [place] [address] 07/09 CBC w/ auto diff HCT % 40.1 51.0 38.6 Low FINAL [facility] (T), [address], [address] [facility] [address] 07/09 CBC w/ auto diff MCV fL 79.0 92.2 87.1 FINAL Lisa Arreola [facility] (T), [address], [address] [facility] [address] 07/09 CBC w/ auto diff MCH pg 25.7 32.2 28.7 FINAL Lisa Arreola [facility] (T), [address], [address] [facility] [address] 07/09 CBC w/ auto diff MCHC g/dL 32.3 36.5 32.9 FINAL Lisa Arreola [facility] (T), [address], [address] [facility] [address] 07/09 CBC w/ auto diff RDW-C V, % % 11.6 14.4 13.5 FINAL Lisa Arreola [facility] (T), [address], [address] [facility] [address] 07/09 CBC w/ auto diff PLT 10*3/u L 163.0 337.0 165.0 FINAL Lisa Arreola [facility] (T), [address], [address] [facility] [address] 10/08 CMP - Core Lab Sodiu m mmol/L 136.0 145.0 140 FINAL [facility] ([facility]), [address] [place] [address] 44513 10/08 CMP - Core Lab Potas sium mmol/L 3.5 5.1 4.2 FINAL [facility] ([facility]), [address] [place] [address] 65950 10/08 CMP - Core Lab Chlor naif mmol/L 98.0 107.0 106 FINAL [facility] ([facility]), [address] [place] [address] 01943 10/08 CMP - Core Lab CO2 mmol/L 20.0 31.0 25.7 FINAL [facility] ([facility]), [address] [place] [address] [place] [address] 10/08 CMP - Core Lab Anion gap, mmol/ L mmol/L 4.0 15.0 8.3 FINAL [facility] ([facility]), [address] [place] [address] [place] [address] 10/08 CMP - Core Lab BUN mg/dL 9.0 23.0 27 High FINAL [facility] ([facility]), [address] [place] [address] [place] [address] 10/08 CMP - Core Lab BUN/C reati nine ratio 0.0 25.0 28.1 High FINAL [facility] ([facility]), [address] [place] [address] 61050 10/08 CMP - Core Lab Creat inine mg/dL 0.6 1.1 0.96 FINAL [facility] ([facility]), [address] [place] [address] 76354 10/08 CMP - Core Lab GFR non-A frica n Ameri can, estim ated mL/min /1.73m >60.0 FINAL [facility] ([facility]), [address] [place] [address] [place] [address] 10/08 CMP - Core Lab GFR Afric an Ameri can, estim ated mL/min /1.73m >60.0 FINAL [facility] ([facility]), [address] [place] [address] [place] [address] 10/08 CMP - Core Lab Gluco se mg/dL 74.0 106.0 105 FINAL [facility] ([facility]), [address] [place] [address] [place] [address] 10/08 CMP - Core Lab Calci um mg/dL 8.7 10.6 10.0 FINAL [facility] ([facility]), [address] [place] [address] [place] [address] 10/08 CMP - Core Lab Album in g/dL 3.4 5.0 4.0 FINAL [facility] ([facility]), [address] [place] [address] [place] [address] 10/08 CMP - Core Lab Total prote in g/dL 5.7 8.2 6.7 FINAL [facility] ([facility]), [address] [place] [address] 84499 10/08 CMP - Core Lab A/G ratio 1.0 2.0 1.5 FINAL [facility] ([facility]), [address] [place] [address] 98174 10/08 CMP - Core Lab Alkal ine phosp hatas e U/L 46.0 116.0 47 FINAL [facility] ([facility]), [address] [place] [address] 26159 10/08 CMP - Core Lab ALT/S GPT U/L 10.0 49.0 19 FINAL [facility] ([facility]), [address] [place] [address] 18803 10/08 CMP - Core Lab AST/S GOT U/L 0.0 34.0 23 FINAL [facility] ([facility]), [address] [place] [address] 62330 10/08 CMP - Core Lab Bilir ubin, total mg/dL 0.3 1.2 0.4 FINAL [facility] ([facility]), [address] [place] [address] 73596 10/08 CBC w/ auto diff WBC 10*3/u L 4.2 9.1 4.6 FINAL [facility] ([facility]), [address], [address] [place] [address] 10/08 CBC w/ auto diff Alan # (ANC) 10*3/u L 1.78 5.38 3.30 FINAL [facility] ([facility]), [address], [address] [place] [address] 026[address] 10/08 CBC w/ auto diff LY # 10*3/u L 1.32 3.57 0.66 Low FINAL [facility] ([facility]), [address], [address] [facility] [address] 10/08 CBC w/ auto diff MO # 10*3/u L 0.3 0.82 0.47 FINAL [facility] ([facility]), [address], [address] [place] [address] 10/08 CBC w/ auto diff EO # 10*3/u lL 0.04 0.54 0.18 FINAL [facility] ([facility]), [address], [address] [place] [address] 10/08 CBC w/ auto diff BA # 10*3/u L 0.01 0.08 0.03 FINAL [facility] (T), [address], [address] [place] [address] 10/08 CBC w/ auto diff Alan % % 34.0 67.9 71.2 High FINAL [facility] (T), [address], [address] [place] [address] 10/08 CBC w/ auto diff LY % % 21.8 53.1 14.2 Low FINAL [facility] (T), [address], [address] [place] [address] 10/08 CBC w/ auto diff MO % % 5.3 12.2 10.1 FINAL [facility] (T), [address], [address] [place] [address] 10/08 CBC w/ auto diff EO % % 0.8 7.0 3.9 FINAL [facility] (T), [address], [address] [place] [address] 10/08 CBC w/ auto diff BA % % 0.2 1.2 0.6 FINAL [facility] (T), [address], [address] [place] [address] 10/08 CBC w/ auto diff RBC 10*6/u L 4.63 6.08 4.24 Low FINAL [facility] ([facility]), [address], [address] [place] [address] 10/08 CBC w/ auto diff HGB g/dL 13.7 17.5 12.3 Low FINAL [facility] (T), [address], [address] [place] [address] 10/08 CBC w/ auto diff HCT % 40.1 51.0 36.9 Low FINAL [facility] (T), [address], [address] [place] [address] 10/08 CBC w/ auto diff MCV fL 79.0 92.2 87.0 FINAL [facility] ([facility]), [address], [address] [place] [address] 10/08 CBC w/ auto diff MCH pg 25.7 32.2 29.0 FINAL [facility] ([facility]), [address], [address] [place] [address] 10/08 CBC w/ auto diff MCHC g/dL 32.3 36.5 33.3 FINAL [facility] ([facility]), [address], [address] [place], [place] [address] 10/08 CBC w/ auto diff RDW-C V, % % 11.6 14.4 14.4 FINAL [facility] (T), [address], [address] [place], [place] [address] 10/08 CBC w/ auto diff PLT 10*3/u L 163.0 337.0 175.0 FINAL [facility] ([facility]), [address], [address] [place], [place] [address] 10/08 PSA, total ng/mL 0.04 FINAL [facility] ([facility]), [address] [place] [address]324 01/07 PSA, total ng/mL 0.04 FINAL Supriya Lambertfay [facility] ([facility]), [address] [place] [address] 32220 01/07 CMP - Core Lab Sodiu m mmol/L 136.0 145.0 138 FINAL [facility] ([facility]), [address] [place] [address] 99119 01/07 CMP - Core Lab Potas sium mmol/L 3.5 5.1 5.1 FINAL Supriya barth [facility] ([facility]), [address] [place] [address] 36651 01/07 CMP - Core Lab Chlor naif mmol/L 98.0 107.0 103 FINAL Supriya barth [facility] ([facility]), [address] [place] [address] 93074 01/07 CMP - Core Lab CO2 mmol/L 20.0 31.0 21.9 FINAL Supriya barth [facility] ([facility]), [address] [place] [address] 67732 01/07 CMP - Core Lab Anion gap, mmol/ L mmol/L 4.0 15.0 13.1 FINAL Supriya barth [facility] ([facility]), [address] [place], [place] [id number] 01/07 CMP - Core Lab BUN mg/dL 9.0 23.0 14 FINAL Supriya barth [facility] ([facility]), [address] [place] [address] 15634 01/07 CMP - Core Lab BUN/C reati nine ratio 0.0 25.0 14.1 FINAL Supriya barth [facility] ([facility]), [address] [place] [address] 49020 01/07 CMP - Core Lab Creat inine mg/dL 0.6 1.1 0.99 FINAL Supriya barth [facility] ([facility]), [address] [place] [address] 64900 01/07 CMP - Core Lab GFR non-A frica n Ameri can, estim ated mL/min /1.73m >60.0 FINAL Supriya barth [facility] ([facility]), [address] [place] [address] 44462 01/07 CMP - Core Lab GFR Afric an Ameri can, estim ated mL/min /1.73m >60.0 FINAL Supriya barth [facility] ([facility]), [address] [place] [address] 01731 01/07 CMP - Core Lab Gluco se mg/dL 74.0 106.0 103 FINAL Supriya barth [facility] ([facility]), [address] [place] [address] [place] [address] 01/07 CMP - Core Lab Calci um mg/dL 8.7 10.6 9.7 FINAL Supriya barth [facility] ([facility]), [address] [place] [address] [place] [address] 01/07 CMP - Core Lab Album in g/dL 3.4 5.0 4.1 FINAL Supriya barth [facility] ([facility]), [address] [place] [address] [place] [address] 01/07 CMP - Core Lab Total prote in g/dL 5.7 8.2 7.1 FINAL Supriya barth [facility] ([facility]), [address] [place] [address] [place] [address] 01/07 CMP - Core Lab A/G ratio 1.0 2.0 1.4 FINAL Supriya barth [facility] ([facility]), [address] [place] [address] [place] [address] 01/07 CMP - Core Lab Alkal ine phosp hatas e U/L 46.0 116.0 46 FINAL Supriya barth [facility] ([facility]), [address] [place] [address] [place] [address] 01/07 CMP - Core Lab ALT/S GPT U/L 10.0 49.0 35 FINAL Supriya barth [facility] ([facility]), [address] [place] [address] [place] [address] 01/07 CMP - Core Lab AST/S GOT U/L 0.0 34.0 57 High FINAL Supriya barth [facility] ([facility]), [address] [place] [address] [place] [address] 01/07 CMP - Core Lab Bilir ubin, total mg/dL 0.3 1.2 0.4 FINAL Supriya barth [facility] ([facility]), [address] [place] [address] [place] [address] 01/07 CBC w/ auto diff WBC 10*3/u L 4.2 9.1 5.0 FINAL Supriya Gillespi e [facility] ([facility]), [address], [address] [place] [address] 01/07 CBC w/ auto diff Alan # (ANC) 10*3/u L 1.78 5.38 3.57 FINAL Supriya Gillespi e [facility] ([facility]), [address], [address] [place] [address] 01/07 CBC w/ auto diff LY # 10*3/u L 1.32 3.57 0.83 Low FINAL Supriya Gillespi e [facility] ([facility]), [address], [address] [place] [address] 01/07 CBC w/ auto diff MO # 10*3/u L 0.3 0.82 0.42 FINAL Supriya Gillespi e [facility] ([facility]), [address], [address] [place] [address] 01/07 CBC w/ auto diff EO # 10*3/u lL 0.04 0.54 0.17 FINAL Supriya Gillespi e [facility] ([facility]), [address], [address] [place] [address] 01/07 CBC w/ auto diff BA # 10*3/u L 0.01 0.08 0.02 FINAL Supriya Gillespi e [facility] ([facility]), [address], [address] [place] [address] 01/07 CBC w/ auto diff Alan % % 34.0 67.9 71.2 High FINAL Sup[facility]ya Gillespi e [facility] ([facility]), [address], [address] [place] [address] 01/07 CBC w/ auto diff LY % % 21.8 53.1 16.6 Low FINAL Supriya Gillespi e [facility] ([facility]), [address], [address] [place] [address] 01/07 CBC w/ auto diff MO % % 5.3 12.2 8.4 FINAL [facility]ya Gillespi e [facility] ([facility]), [address], [address] [place] [address] 01/07 CBC w/ auto diff EO % % 0.8 7.0 3.4 FINAL Supriya barth [facility]), [address], [address] [place], [place] [address] 01/07 CBC w/ auto diff BA % % 0.2 1.2 0.4 FINAL Supriya barth [facility] ([facility]), [address], [address] [place] [address] 01/07 CBC w/ auto diff RBC 10*6/u L 4.63 6.08 4.12 Low FINAL Supriya barth [facility] ([facility]), [address], [address] [place] [address] 01/07 CBC w/ auto diff HGB g/dL 13.7 17.5 12.0 Low FINAL [facility] [address], [address] [place] [address] 01/07 CBC w/ auto diff HCT % 40.1 51.0 36.4 Low FINAL Supriya barth [facility] ([facility]), [address], [address] [place] [address] 01/07 CBC w/ auto diff MCV fL 79.0 92.2 88.3 FINAL Supriya barth [facility] ([facility]), [address], [address] [place] [address] 01/07 CBC w/ auto diff MCH pg 25.7 32.2 29.1 FINAL Supriya barth [facility] ([facility]), [address], [address] [place] [address] 01/07 CBC w/ auto diff MCHC g/dL 32.3 36.5 33.0 FINAL Supriya barth [facility] ([facility]), [address], [address] [place] [address] 01/07 CBC w/ auto diff RDW-C V, % % 11.6 14.4 14.3 FINAL Supriya barth [facility] ([facility]), [address], [address] [facility] [address] 01/07 CBC w/ auto diff PLT 10*3/u L 163.0 337.0 162.0 Low FINAL Supriya barth [facility] ([facility]), [address], [address] [facility] [address] 04/08 PSA, total ng/mL 0.04 FINAL [facility] ([facility]), [address] [place] [address] [place] [address] 04/08 CMP - Core Lab Sodiu m mmol/L 136.0 145.0 141 FINAL [facility] ([facility]), [address] [place] [address] 04/08 CMP - Core Lab Potas sium mmol/L 3.5 5.1 4.0 FINAL [facility] ([facility]), [address] [place] [address] 21025 04/08 CMP - Core Lab Chlor naif mmol/L 98.0 107.0 108 High FINAL [facility] ([facility]), [address] [place] [address] [place] [address] 04/08 CMP - Core Lab CO2 mmol/L 20.0 31.0 23.4 FINAL [facility] ([facility]), [address] [place] [address] [place] [address] 04/08 CMP - Core Lab Anion gap, mmol/ L mmol/L 4.0 15.0 9.6 FINAL [facility] ([facility]), [address] [place] [address] [place] [address] 04/08 CMP - Core Lab BUN mg/dL 9.0 23.0 19 FINAL [facility] ([facility]), [address] [place] [address] [place] [address] 04/08 CMP - Core Lab BUN/C reati nine ratio 0.0 25.0 22.1 FINAL [facility] ([facility]), [address] [place] [address] 04647 04/08 CMP - Core Lab Creat inine mg/dL 0.6 1.1 0.86 FINAL [facility] ([facility]), [address] [place] [address] 66598 04/08 CMP - Core Lab GFR non-A frica n Ameri can, estim ated mL/min /1.73m >60.0 FINAL [facility] ([facility]), [address] [place] [address] 07446 04/08 CMP - Core Lab GFR Afric an Ameri can, estim ated mL/min /1.73m >60.0 FINAL [facility] ([facility]), [address] [place] [address] 69321 04/08 CMP - Core Lab Gluco se mg/dL 74.0 106.0 122 High FINAL [facility] ([facility]), [address] [place] [address] 35424 04/08 CMP - Core Lab Calci um mg/dL 8.7 10.6 9.6 FINAL [facility] ([facility]), [address] [place] [address] 31642 04/08 CMP - Core Lab Album in g/dL 3.4 5.0 3.9 FINAL [facility] ([facility]), [address] [place] [address] [place] [address] 04/08 CMP - Core Lab Total prote in g/dL 5.7 8.2 6.5 FINAL [facility] ([facility]), [address] [place] [address] 06655 04/08 CMP - Core Lab A/G ratio 1.0 2.0 1.5 FINAL [facility] ([facility]), [address] [place] [address] 85207 04/08 CMP - Core Lab Alkal ine phosp hatas e U/L 46.0 116.0 45 Low FINAL [facility] ([facility]), [address] [place] [address] 43038 04/08 CMP - Core Lab ALT/S GPT U/L 10.0 49.0 24 FINAL [facility] ([facility]), [address] [facility] [address] 04/08 CMP - Core Lab AST/S GOT U/L 0.0 34.0 26 FINAL [facility] ([facility]), [facility] [address] 04/08 CMP - Core Lab Bilir ubin, total mg/dL 0.3 1.2 0.4 FINAL [facility] ([facility]), [address] [place] [address] 04/08 CBC w/ auto diff WBC 10*3/u L 4.2 9.1 4.8 FINAL [facility] ([facility]), [address], [address] [place] [address] 04/08 CBC w/ auto diff Alan # (ANC) 10*3/u L 1.78 5.38 3.23 FINAL [facility] ([facility]), [address], [address] [place] [address] 04/08 CBC w/ auto diff LY # 10*3/u L 1.32 3.57 0.86 Low FINAL [facility] ([facility]), [address], [address] [place] [address] 04/08 CBC w/ auto diff MO # 10*3/u L 0.3 0.82 0.48 FINAL [facility] ([facility]), [address], [address] [place] [address] 04/08 CBC w/ auto diff EO # 10*3/u lL 0.04 0.54 0.20 FINAL [facility] ([facility]), [address], [address] [place] [address] 04/08 CBC w/ auto diff BA # 10*3/u L 0.01 0.08 0.04 FINAL [facility] ([facility]), [address], [address] [place] [address] 04/08 CBC w/ auto diff Alan % % 34.0 67.9 67.1 FINAL [facility]), [address], [address] [place] [address] 04/08 CBC w/ auto diff LY % % 21.8 53.1 17.9 Low FINAL [facility] ([facility]), [address], [address] [place] [address] 04/08 CBC w/ auto diff MO % % 5.3 12.2 10.0 FINAL [facility] ([facility]), [address], [address] [place] [address] 04/08 CBC w/ auto diff EO % % 0.8 7.0 4.2 FINAL [facility] ([facility]), [address], [address] [place] [address] 04/08 CBC w/ auto diff BA % % 0.2 1.2 0.8 FINAL [facility] ([facility]), [address], [address] [place] [address] 04/08 CBC w/ auto diff RBC 10*6/u L 4.63 6.08 4.22 Low FINAL [facility] ([facility]), [address], [address] [place] [address] 04/08 CBC w/ auto diff HGB g/dL 13.7 17.5 12.3 Low FINAL [facility] ([facility]), [address], [address] [place] [address] 04/08 CBC w/ auto diff HCT % 40.1 51.0 36.7 Low FINAL [facility] ([facility]), [address], [address] [place] [address] 04/08 CBC w/ auto diff MCV fL 79.0 92.2 87.0 FINAL [facility] ([facility]), [address], [address] [place] [address] 04/08 CBC w/ auto diff MCH pg 25.7 32.2 29.1 FINAL [facility] (T), [address], [address] [facility] [address] 04/08 CBC w/ auto diff MCHC g/dL 32.3 36.5 33.5 FINAL Shayne Castellanos [facility] (T), [address], [address] [facility] [address] 04/08 CBC w/ auto diff RDW-C V, % % 11.6 14.4 13.8 FINAL Shayne Castellanos [facility] (T), [address], [address] [place] [id number] 04/08 CBC w/ auto diff PLT 10*3/u L 163.0 337.0 174.0 FINAL Shayne Castellanos [facility] (T), [address], [address] [place] [id number] 07/06 PSA, total ng/mL 0.04 FINAL [facility] ([facility]), [address] [place], [place] [id number] 07/06 CMP - Core Lab Sodiu m mmol/L 136.0 145.0 141 FINAL Milvia [facility] ([facility]), [address] [place], [place] [id number] 07/06 CMP - Core Lab Potas sium mmol/L 3.5 5.1 4.1 FINAL Milvia [facility] ([facility]), [address] [place], [place] [id number] 07/06 CMP - Core Lab Chlor naif mmol/L 98.0 107.0 105 FINAL Milvia Liming [facility] ([facility]), [address] [place] [address] 07/06 CMP - Core Lab CO2 mmol/L 20.0 31.0 27.1 FINAL Milvia Liming [facility] ([facility]), [address] [place], [place] [phone] 07/06 CMP - Core Lab Anion gap, mmol/ L mmol/L 4.0 15.0 8.9 FINAL Milvia Liming [facility] ([facility]), [address] [place], [place] [phone] 07/06 CMP - Core Lab BUN mg/dL 9.0 23.0 13 FINAL [facility] ([facility]), [address] [place] [address] 07/06 CMP - Core Lab BUN/C reati nine ratio 0.0 25.0 13.8 FINAL [facility] ([facility]), [address] [place] [address] 07/06 CMP - Core Lab Creat inine mg/dL 0.6 1.1 0.94 FINAL [facility] ([facility]), [address] [place] [address] 07/06 CMP - Core Lab GFR non-A frica n Ameri can, estim ated mL/min /1.73m >60.0 FINAL [facility] ([facility]), [address] [place] [address] 07/06 CMP - Core Lab GFR Afric an Ameri can, estim ated mL/min /1.73m >60.0 FINAL [facility] ([facility]), [address] [place] [address] 07/06 CMP - Core Lab Gluco se mg/dL 74.0 106.0 91 FINAL [facility] ([facility]), [address] [place] [address] 07/06 CMP - Core Lab Calci um mg/dL 8.7 10.6 10.3 FINAL [facility] ([facility]), [address] [place] [address] 07/06 CMP - Core Lab Album in g/dL 3.4 5.0 4.0 FINAL [facility] ([facility]), [address] [place] [address] 07/06 CMP - Core Lab Total prote in g/dL 5.7 8.2 6.8 FINAL [facility] ([facility]), [address] [place] [address] 07/06 CMP - Core Lab A/G ratio 1.0 2.0 1.4 FINAL [facility] ([facility]), [facility] [address] 07/06 CMP - Core Lab Alkal ine phosp hatas e U/L 46.0 116.0 48 FINAL [facility] ([facility]), [address] [place] [address] 07/06 CMP - Core Lab ALT/S GPT U/L 10.0 49.0 24 FINAL [facility] ([facility]), [address] [place] [address] 07/06 CMP - Core Lab AST/S GOT U/L 0.0 34.0 23 FINAL [facility] ([facility]), [address] [place] [address] 07/06 CMP - Core Lab Bilir ubin, total mg/dL 0.3 1.2 0.5 FINAL [facility] ([facility]), [address] [place] [address] 07/06 CBC w/ auto diff LY # 10*3/u L 1.32 3.57 1.07 Low FINAL [facility] [address], [address] [place] [address] 07/06 CBC w/ auto diff MO # 10*3/u L 0.3 0.82 0.57 FINAL [facility] [address], [address] [place] [address] 07/06 CBC w/ auto diff EO # 10*3/u lL 0.04 0.54 0.23 FINAL [facility] ([facility]), [address], [address] [place] [address] 07/06 CBC w/ auto diff BA # 10*3/u L 0.01 0.08 0.04 FINAL [facility] ([facility]), [address], [address] [place] [address] 07/06 CBC w/ auto diff Alan % % 34.0 67.9 69.4 High FINAL Milvia Liming [facility] ([facility]), [address], [address] [place] [address] 07/06 CBC w/ auto diff LY % % 21.8 53.1 17.2 Low FINAL Milvia Liming [facility] ([facility]), [address], [address] [place] [address] 07/06 CBC w/ auto diff MO % % 5.3 12.2 9.1 FINAL Milvia Liming [facility] ([facility]), [address], [address] [place] [address] 07/06 CBC w/ auto diff EO % % 0.8 7.0 3.7 FINAL Milvia Liming [facility] ([facility]), [address], [address] [place] [address] 07/06 CBC w/ auto diff BA % % 0.2 1.2 0.6 FINAL Milvia Liming [facility] ([facility]), [address], [address] [place] [address] 07/06 CBC w/ auto diff RBC 10*6/u L 4.63 6.08 4.55 Low FINAL Milvia Liming [facility] ([facility]), [address], [address] [place] [address] 07/06 CBC w/ auto diff HGB g/dL 13.7 17.5 13.4 Low FINAL Milvia Liming [facility] ([facility]), [address], [address] [place] [address] 07/06 CBC w/ auto diff HCT % 40.1 51.0 39.9 Low FINAL Milvia Liming [facility] ([facility]), [address], [address] [place] [address] 07/06 CBC w/ auto diff MCV fL 79.0 92.2 87.7 FINAL Milvia Liming [facility] ([facility]), [address], [address] [place] [address] 07/06 CBC w/ auto diff MCH pg 25.7 32.2 29.5 FINAL [facility] [address], [address] [place] [address] 07/06 CBC w/ auto diff MCHC g/dL 32.3 36.5 33.6 FINAL [facility] [address], [address] [place] [address] 07/06 CBC w/ auto diff RDW-C V, % % 11.6 14.4 13.7 FINAL [facility] [address], [address] [place] [address] 07/06 CBC w/ auto diff PLT 10*3/u L 163.0 337.0 197.0 FINAL [facility] ([facility]), [address], [address] [place] [address] 07/06 CBC w/ auto diff WBC 10*3/u L 4.2 9.1 6.2 FINAL [facility] [address], [address] [place] [address] 07/06 CBC w/ auto diff Alan # (ANC) 10*3/u L 1.78 5.38 4.32 FINAL [facility] ([facility]), [address], [address] [place] [address] 10/06 CBC w/ auto diff WBC 10*3/u L 4.2 9.1 6.2 FINAL [facility] (T), [address], [address] [place] [address] 10/06 CBC w/ auto diff Alan # (ANC) 10*3/u L 1.78 5.38 4.31 FINAL Sh[facility]ne [facility] ([facility]), [address], [address] [place] [address] 10/06 CBC w/ auto diff LY # 10*3/u L 1.32 3.57 0.99 Low FINAL [facility] ([facility]), [address], [address] [place] [address] 10/06 CBC w/ auto diff MO # 10*3/u L 0.3 0.82 0.61 FINAL Shayne [facility] (EGT), [address], [address] [place] [address] 10/06 CBC w/ auto diff EO # 10*3/u lL 0.04 0.54 0.26 FINAL Sh[facility]ne [facility] (T), [address], [address] [place] [address] 10/06 CBC w/ auto diff BA # 10*3/u L 0.01 0.08 0.02 FINAL Shayne [facility] (T), [address], [address] [place] [address] 10/06 CBC w/ auto diff Alan % % 34.0 67.9 69.6 High FINAL Shayne [facility] (T), [address], [address] [place] [address] 10/06 CBC w/ auto diff LY % % 21.8 53.1 16.0 Low FINAL [facility] (T), [address], [address] [place] [address] 10/06 CBC w/ auto diff MO % % 5.3 12.2 9.9 FINAL Shayne [facility] (T), [address], [address] [place] [address] 10/06 CBC w/ auto diff EO % % 0.8 7.0 4.2 FINAL Shayne [facility] (T), [address], [address] [place] [address] 10/06 CBC w/ auto diff BA % % 0.2 1.2 0.3 FINAL Shayne [facility] (T), [address], [address] [place] [address] 10/06 CBC w/ auto diff RBC 10*6/u L 4.63 6.08 4.82 FINAL [facility] (EGT), [address], [address] [place] [address] 10/06 CBC w/ auto diff HGB g/dL 13.7 17.5 14.0 FINAL [facility] (T), [address], [address] [place] [address] 10/06 CBC w/ auto diff HCT % 40.1 51.0 42.0 FINAL [facility] (T), [address], [address] [place], [place] [address] 10/06 CBC w/ auto diff MCV fL 79.0 92.2 87.1 FINAL [facility] (T), [address], [address] [place] [address] 10/06 CBC w/ auto diff MCH pg 25.7 32.2 29.0 FINAL [facility] (T), [address], [address] [place] [address] 10/06 CBC w/ auto diff MCHC g/dL 32.3 36.5 33.3 FINAL [facility] (T), [address], [address] [place] [address] 10/06 CBC w/ auto diff RDW-C V, % % 11.6 14.4 14.0 FINAL [facility] (T), [address], [address] [place] [address] 10/06 CBC w/ auto diff PLT 10*3/u L 163.0 337.0 212.0 FINAL [facility] (T), [address], [address] [place] [address] 10/06 PSA, total ng/mL 0.04 FINAL [facility] ([facility]), [address] [facility] [address] 10/06 CMP - Core Lab Sodiu m mmol/L 136.0 145.0 142 FINAL [facility] ([facility]), [facility] [address] 10/06 CMP - Core Lab Potas sium mmol/L 3.5 5.1 4.4 FINAL [facility] ([facility]), [address] [place] [address] [place] [address] 10/06 CMP - Core Lab Chlor naif mmol/L 98.0 107.0 107 FINAL [facility] ([facility]), [address] [place] [address] 10/06 CMP - Core Lab CO2 mmol/L 20.0 31.0 25.4 FINAL [facility] ([facility]), [address] [place] [address] [place] [address] 10/06 CMP - Core Lab Anion gap, mmol/ L mmol/L 4.0 15.0 9.6 FINAL [facility] ([facility]), [address] [place] [address] 10/06 CMP - Core Lab BUN mg/dL 9.0 23.0 19 FINAL [facility] ([facility]), [address] [place] [address] 10/06 CMP - Core Lab BUN/C reati nine ratio 0.0 25.0 20.9 FINAL [facility] ([facility]), [address] [place] [address] 10/06 CMP - Core Lab Creat inine mg/dL 0.6 1.1 0.91 FINAL [facility] ([facility]), [address] [place] [address] [place] [address] 10/06 CMP - Core Lab GFR non-A frica n Ameri can, estim ated mL/min /1.73m >60.0 FINAL [facility] ([facility]), [address] [place] [address] [place] [address] 10/06 CMP - Core Lab GFR Afric an Ameri can, estim ated mL/min /1.73m >60.0 FINAL [facility] ([facility]), [address] [place] [address] [place] [address] 10/06 CMP - Core Lab Gluco se mg/dL 74.0 106.0 102 FINAL [facility] ([facility]), [address] [place] [address] [place] [address] 10/06 CMP - Core Lab Calci um mg/dL 8.7 10.6 10.8 High FINAL [facility] ([facility]), [address] [place] [address] [place] [address] 10/06 CMP - Core Lab Album in g/dL 3.4 5.0 4.4 FINAL [facility] ([facility]), [address] [place] [address] [place] [address] 10/06 CMP - Core Lab Total prote in g/dL 5.7 8.2 7.3 FINAL [facility] ([facility]), [address] [place] [address] 10/06 CMP - Core Lab A/G ratio 1.0 2.0 1.5 FINAL [facility] ([facility]), [address] [place] [address] 10/06 CMP - Core Lab Alkal ine phosp hatas e U/L 46.0 116.0 49 FINAL [facility] ([facility]), [address] [place] [address] [place] [address] 10/06 CMP - Core Lab ALT/S GPT U/L 10.0 49.0 27 FINAL [facility] ([facility]), [address] [place] [address] [place] [address] 10/06 CMP - Core Lab AST/S GOT U/L 0.0 34.0 23 FINAL [facility] ([facility]), [address] [place] [address] [place] [address] 10/06 CMP - Core Lab Bilir ubin, total mg/dL 0.3 1.2 0.4 FINAL [facility] ([facility]), [address] [place] [address] [place] [address] 01/05 CBC w/ auto diff WBC 10*3/u L 4.2 9.1 5.2 FINAL Milvia Johnson [facility] ([facility]), [address], [address] [facility] [address] 01/05 CBC w/ auto diff Alan # (ANC) 10*3/u L 1.78 5.38 3.53 FINAL Milvia Liming [facility] ([facility]), [address], [address] [place] [address] 01/05 CBC w/ auto diff LY # 10*3/u L 1.32 3.57 0.94 Low FINAL Milvia Liming [facility] ([facility]), [address], [address] [place] [address] 01/05 CBC w/ auto diff MO # 10*3/u L 0.3 0.82 0.46 FINAL Milvia Liming [facility] ([facility]), [address], [address] [place] [address] 01/05 CBC w/ auto diff EO # 10*3/u lL 0.04 0.54 0.20 FINAL Milvia Liming [facility] ([facility]), [address], [address] [place] [address] 01/05 CBC w/ auto diff BA # 10*3/u L 0.01 0.08 0.02 FINAL Milvia Liming [facility] ([facility]), [address], [address] [place] [address] 01/05 CBC w/ auto diff Alan % % 34.0 67.9 68.5 High FINAL Milvia Liming [facility] ([facility]), [address], [address] [place] [address] 01/05 CBC w/ auto diff LY % % 21.8 53.1 18.3 Low FINAL Milvia Liming [facility] ([facility]), [address], [address] [place] [address] 01/05 CBC w/ auto diff MO % % 5.3 12.2 8.9 FINAL Milvia Liming [facility] ([facility]), [address], [address] [place] [address] 01/05 CBC w/ auto diff EO % % 0.8 7.0 3.9 FINAL Milvia Liming [facility] ([facility]), [address], [address] [place] [address] 01/05 CBC w/ auto diff BA % % 0.2 1.2 0.4 [facility]AL [facility] [address], [address] [place] [address] 01/05 CBC w/ auto diff RBC 10*6/u L 4.63 6.08 4.42 Low [facility]AL [facility] [address], [address] [place] [address] 01/05 CBC w/ auto diff HGB g/dL 13.7 17.5 12.9 Low [facility]AL [facility] [address], [address] [place] [address] 01/05 CBC w/ auto diff HCT % 40.1 51.0 39.9 Low [facility]AL [facility] [address], [address] [place] [address] 01/05 CBC w/ auto diff MCV fL 79.0 92.2 90.3 FINAL [facility] [address], [address] [place] [address] 01/05 CBC w/ auto diff MCH pg 25.7 32.2 29.2 FINAL [facility] [address], [address] [place] [address] 01/05 CBC w/ auto diff MCHC g/dL 32.3 36.5 32.3 FINAL [facility] [address], [address] [place] [address] 01/05 CBC w/ auto diff RDW-C V, % % 11.6 14.4 13.6 [facility]AL [facility] [address], [address] [place] [address] 01/05 CBC w/ auto diff PLT 10*3/u L 163.0 337.0 176.0 FINAL Milvia [facility] ([facility]), [address], [address] [facility] [place] [address] 01/05 CMP - Core Lab Sodiu m mmol/L 136.0 145.0 140 FINAL Milvia [facility] ([facility]), [address] [place] [address] [place] [address] 01/05 CMP - Core Lab Potas sium mmol/L 3.5 5.1 4.4 [facility]AL [facility]), [address] [place] [address] [place] [address] 01/05 CMP - Core Lab Chlor naif mmol/L 98.0 107.0 106 [facility] ([facility]), [address] [place] [address] [place] [address] 01/05 CMP - Core Lab CO2 mmol/L 20.0 31.0 26.6 [facility]AL [facility] ([facility]), [address] [place] [address] 01/05 CMP - Core Lab Anion gap, mmol/ L mmol/L 4.0 15.0 7.4 [facility]AL [facility] ([facility]), [address] [place] [address] [place] [address] 01/05 CMP - Core Lab BUN mg/dL 9.0 23.0 22 [facility] ([facility]), [address] [place] [address] 01/05 CMP - Core Lab BUN/C reati nine ratio 0.0 25.0 22.4 FINAL [facility] ([facility]), [address] [place] [address] [place] [address] 01/05 CMP - Core Lab Creat inine mg/dL 0.6 1.1 0.98 FINAL [facility] ([facility]), [address] [place] [address] [place] [address] 01/05 CMP - Core Lab GFR non-A frica n Ameri can, estim ated mL/min /1.73m >60.0 FINAL [facility] ([facility]), [address] [place] [address] [place] [address] 01/05 CMP - Core Lab GFR Afric an Ameri can, estim ated mL/min /1.73m >60.0 FINAL [facility] ([facility]), [address] [place] [address] [place] [address] 01/05 CMP - Core Lab Gluco se mg/dL 74.0 106.0 109 High [facility]AL [facility]), [address] [place] [address] [place] [address] 01/05 CMP - Core Lab Calci um mg/dL 8.7 10.6 9.7 [facility]AL [facility] ([facility]), [address] [place] [address] 01/05 CMP - Core Lab Album in g/dL 3.4 5.0 3.8 FINAL Milvia [facility] ([facility]), [address] [place] [address] [place] [address] 01/05 CMP - Core Lab Total prote in g/dL 5.7 8.2 6.5 [facility]AL [facility] ([facility]), [address] [place] [address] [place] [address] 01/05 CMP - Core Lab A/G ratio 1.0 2.0 1.4 FINAL Milvia [facility] ([facility]), [address] [place] [address] [place] [address] 01/05 CMP - Core Lab Alkal ine phosp hatas e U/L 46.0 116.0 46 [facility]AL [facility]), [address] [place] [address] [place] [address] 01/05 CMP - Core Lab ALT/S GPT U/L 10.0 49.0 24 [facility]), [address] [place] [address] [place] [address] 01/05 CMP - Core Lab AST/S GOT U/L 0.0 34.0 23 [facility]), [address] [place] [address] [place] [address] 01/05 CMP - Core Lab Bilir ubin, total mg/dL 0.3 1.2 0.4 FINAL [facility]), [address] [facility] [address] 01/05 PSA, total ng/mL 0.04 FINAL [facility] ([facility]), [address] [facility] [address] 04/07 CBC w/ auto diff WBC 10*3/u L 4.2 9.1 5.5 FINAL [facility] ([facility]), [address], [address] [place] [address] 04/07 CBC w/ auto diff Alan # (ANC) 10*3/u L 1.78 5.38 3.98 FINAL [facility] ([facility]), [address], [address] [place] [address] 04/07 CBC w/ auto diff LY # 10*3/u L 1.32 3.57 0.91 Low FINAL [facility] ([facility]), [address], [address] [place], [place] [address] 04/07 CBC w/ auto diff MO # 10*3/u L 0.3 0.82 0.40 FINAL [facility] ([facility]), [address], [address] [place] [address] 04/07 CBC w/ auto diff EO # 10*3/u lL 0.04 0.54 0.19 FINAL [facility] ([facility]), [address], [address] [place] [id number] 04/07 CBC w/ auto diff BA # 10*3/u L 0.01 0.08 0.02 FINAL [facility] ([facility]), [address], [address] [place], [place] [id number] 04/07 CBC w/ auto diff Alan % % 34.0 67.9 72.3 High FINAL [facility] ([facility]), [address], [address] [place] [address] 04/07 CBC w/ auto diff LY % % 21.8 53.1 16.5 Low FINAL [facility] ([facility]), [address], [address] [place] [address] 04/07 CBC w/ auto diff MO % % 5.3 12.2 7.3 FINAL [facility] (T), [address], [address] [place] [address] 04/07 CBC w/ auto diff EO % % 0.8 7.0 3.5 FINAL [facility] (T), [address], [address] [place] [address] 04/07 CBC w/ auto diff BA % % 0.2 1.2 0.4 FINAL [facility] (T), [address], [address] [place] [address] 04/07 CBC w/ auto diff RBC 10*6/u L 4.63 6.08 4.70 FINAL [facility] (T), [address], [address] [place] [address] 04/07 CBC w/ auto diff HGB g/dL 13.7 17.5 13.7 FINAL [facility] ([facility]), [address], [address] [place] [address] 04/07 CBC w/ auto diff HCT % 40.1 51.0 41.6 FINAL [facility] ([facility]), [address], [address] [place] [address] 04/07 CBC w/ auto diff MCV fL 79.0 92.2 88.5 FINAL [facility] ([facility]), [address], [address] [place] [address] 04/07 CBC w/ auto diff MCH pg 25.7 32.2 29.1 FINAL [facility] ([facility]), [address], [address] [place] [address] 04/07 CBC w/ auto diff MCHC g/dL 32.3 36.5 32.9 FINAL [facility] (T), [address], [address] [facility] [address] 04/07 CBC w/ auto diff RDW-C V, % % 11.6 14.4 13.7 FINAL [facility] ([facility]), [address], [address] [facility] [address] 04/07 CBC w/ auto diff PLT 10*3/u L 163.0 337.0 188.0 FINAL [facility] ([facility]), [address], [address] [facility] [address] 04/07 CMP - Core Lab Sodiu m mmol/L 136.0 145.0 139 FINAL [facility] ([facility]), [address] [place] [address] 41048 04/07 CMP - Core Lab Potas sium mmol/L 3.5 5.1 4.2 FINAL [facility] ([facility]), [address] [place] [address] 61226 04/07 CMP - Core Lab Chlor naif mmol/L 98.0 107.0 104 FINAL [facility] ([facility]), [address] [place] [address] 02431 04/07 CMP - Core Lab CO2 mmol/L 20.0 31.0 28.3 FINAL [facility] ([facility]), [address] [place] [address] 09172 04/07 CMP - Core Lab Anion gap, mmol/ L mmol/L 4.0 15.0 6.7 FINAL [facility] ([facility]), [address] [place] [address] 71623 04/07 CMP - Core Lab BUN mg/dL 9.0 23.0 20 FINAL [facility] ([facility]), [address] [place] [address] 19505 04/07 CMP - Core Lab BUN/C reati nine ratio 0.0 25.0 21.3 FINAL [facility] ([facility]), [address] [place] [address] 31534 04/07 CMP - Core Lab Creat inine mg/dL 0.6 1.1 0.94 FINAL [facility] ([facility]), [address] [place] [address] 81229 04/07 CMP - Core Lab GFR non-A frica n Ameri can, estim ated mL/min /1.73m >60.0 FINAL [facility] ([facility]), [address] [place] [address] 56619 04/07 CMP - Core Lab GFR Afric an Ameri can, estim ated mL/min /1.73m >60.0 FINAL [facility] ([facility]), [address] [place] [address] 54678 04/07 CMP - Core Lab Gluco se mg/dL 74.0 106.0 127 High FINAL [facility] ([facility]), [address] [place] [address] 28745 04/07 CMP - Core Lab Calci um mg/dL 8.7 10.6 10.6 FINAL [facility] ([facility]), [address] [place] [address] 26873 04/07 CMP - Core Lab Album in g/dL 3.4 5.0 4.2 FINAL [facility] ([facility]), [address] [place] [address] 31013 04/07 CMP - Core Lab Total prote in g/dL 5.7 8.2 7.3 FINAL [facility] ([facility]), [address] [place] [address] 52305 04/07 CMP - Core Lab A/G ratio 1.0 2.0 1.4 FINAL [facility] ([facility]), [address] [place] [address] 27911 04/07 CMP - Core Lab Alkal ine phosp hatas e U/L 46.0 116.0 47 FINAL [facility] ([facility]), [address] [place] [address] 67297 04/07 CMP - Core Lab ALT/S GPT U/L 10.0 49.0 25 FINAL [facility] ([facility]), [address] [place] [address] [place] [address] 04/07 CMP - Core Lab AST/S GOT U/L 0.0 34.0 25 FINAL [facility] ([facility]), [address] [place] [address] [place] [address] 04/07 CMP - Core Lab Bilir ubin, total mg/dL 0.3 1.2 0.5 FINAL [facility] ([facility]), [address] [place] [address] [place] [address] 04/07 PSA, total ng/mL 0.04 FINAL [facility] ([facility]), [address] [place] [address] 21688 07/05 CMP - Core Lab Sodiu m mmol/L 136.0 145.0 140 FINAL [facility] ([facility]), [address] [place] [address] [place] [address] 07/05 CMP - Core Lab Potas sium mmol/L 3.5 5.1 4.2 FINAL [facility] ([facility]), [address] [place] [address] [place] [address] 07/05 CMP - Core Lab Chlor naif mmol/L 98.0 107.0 104 FINAL [facility] ([facility]), [address] [place] [address] [place] [address] 07/05 CMP - Core Lab CO2 mmol/L 20.0 31.0 26.9 FINAL [facility] ([facility]), [address] [place] [address] [place] [address] 07/05 CMP - Core Lab Anion gap, mmol/ L mmol/L 4.0 15.0 9.1 FINAL [facility] ([facility]), [address] [place] [address] [place] [address] 07/05 CMP - Core Lab BUN mg/dL 9.0 23.0 16 FINAL [facility] ([facility]), [address] [place] [address] [place] [address] 07/05 CMP - Core Lab BUN/C reati nine ratio 0.0 25.0 16.0 FINAL [facility] ([facility]), [address] [place] [address] 43884 07/05 CMP - Core Lab Creat inine mg/dL 0.73 1.18 1.00 FINAL [facility] ([facility]), [address] [place] [address] 42107 07/05 CMP - Core Lab GFR non-A frica n Ameri can, estim ated mL/min /1.73m >60.0 FINAL [facility] ([facility]), [address] [place] [address] 06929 07/05 CMP - Core Lab GFR Afric an Ameri can, estim ated mL/min /1.73m >60.0 FINAL [facility] ([facility]), [address] [place] [address] 56541 07/05 CMP - Core Lab Gluco se mg/dL 74.0 106.0 118 High FINAL [facility] ([facility]), [address] [place] [address] 33911 07/05 CMP - Core Lab Calci um mg/dL 8.7 10.6 10.1 FINAL [facility] ([facility]), [address] [place] [address] 83969 07/05 CMP - Core Lab Album in g/dL 3.4 5.0 4.2 FINAL [facility] ([facility]), [address] [place] [address] 16406 07/05 CMP - Core Lab Total prote in g/dL 5.7 8.2 7.0 FINAL [facility] ([facility]), [address] [place] [address] 06703 07/05 CMP - Core Lab A/G ratio 1.0 2.0 1.5 FINAL [facility] ([facility]), [address] [place] [address] 67588 07/05 CMP - Core Lab Alkal ine phosp hatas e U/L 46.0 116.0 44 Low [facility]AL [facility] ([facility]), [facility] [address] 07/05 CMP - Core Lab ALT/S GPT U/L 10.0 49.0 32 FINAL [facility] ([facility]), [address] [place] [address] 26392 07/05 CMP - Core Lab AST/S GOT U/L 0.0 34.0 30 [facility]), [address] [place] [address] 51944 07/05 CMP - Core Lab Bilir ubin, total mg/dL 0.3 1.2 0.5 [facility]AL [facility] ([facility]), [address] [place] [address] 63124 07/05 CBC w/ auto diff HCT % 40.1 51.0 45.8 FINAL [facility] ([facility]), [address], [address] [place] [address] 07/05 CBC w/ auto diff MCV fL 79.0 92.2 89.5 FINAL [facility] (T), [address], [address] [place] [address] 07/05 CBC w/ auto diff MCH pg 25.7 32.2 29.3 FINAL [facility] (T), [address], [address] [place] [address] 07/05 CBC w/ auto diff MCHC g/dL 32.3 36.5 32.8 FINAL [facility] ([facility]), [address], [address] [place], [place] [address] 07/05 CBC w/ auto diff RDW-C V, % % 11.6 14.4 14.0 FINAL [facility] (T), [address], [address] [place], [place] [address] 07/05 CBC w/ auto diff PLT 10*3/u L 163.0 337.0 168.0 FINAL [facility] ([facility]), [address], [address] [place] [address] 07/05 CBC w/ auto diff WBC 10*3/u L 4.2 9.1 5.4 FINAL [facility] ([facility]), [address], [address] [place] [address] 07/05 CBC w/ auto diff Aaln # (ANC) 10*3/u L 1.78 5.38 3.78 FINAL [facility] ([facility]), [address], [address] [place] [address] 07/05 CBC w/ auto diff LY # 10*3/u L 1.32 3.57 0.88 Low FINAL [facility] ([facility]), [address], [address] [place] [address] 07/05 CBC w/ auto diff MO # 10*3/u L 0.3 0.82 0.53 FINAL [facility] ([facility]), [address], [address] [place] [address] 07/05 CBC w/ auto diff EO # 10*3/u lL 0.04 0.54 0.15 FINAL [facility] ([facility]), [address], [address] [place] [address] 07/05 CBC w/ auto diff BA # 10*3/u L 0.01 0.08 0.02 FINAL [facility] ([facility]), [address], [address] [place] [address] 07/05 CBC w/ auto diff Alan % % 34.0 67.9 70.5 High FINAL [facility] ([facility]), [address], [address] [place] [address] 07/05 CBC w/ auto diff LY % % 21.8 53.1 16.4 Low FINAL [facility] ([facility]), [address], [address] [place] [address] 07/05 CBC w/ auto diff MO % % 5.3 12.2 9.9 FINAL [facility] ([facility]), [address], [address] [facility] [address] 07/05 CBC w/ auto diff EO % % 0.8 7.0 2.8 FINAL [facility] ([facility]), [address], [address] [facility] [address] 07/05 CBC w/ auto diff BA % % 0.2 1.2 0.4 FINAL [facility] ([facility]), [address], [address] [facility] [address] 07/05 CBC w/ auto diff RBC 10*6/u L 4.63 6.08 5.12 FINAL [facility] (T), [address], [address] [facility] [address] 07/05 CBC w/ auto diff HGB g/dL 13.7 17.5 15.0 FINAL [facility] ([facility]), [address], [address] [place] [id number] 07/05 PSA, total ng/mL 0.04 [facility]), [address] [place] [address] 30433 10/10 CMP - Core Lab Sodiu m mmol/L 136.0 145.0 140 FINAL [facility] ([facility]), [address] [place] [address] 42923 10/10 CMP - Core Lab Potas sium mmol/L 3.5 5.1 4.6 FINAL [facility] ([facility]), [address] [place] [address] 46051 10/10 CMP - Core Lab Chlor naif mmol/L 98.0 107.0 104 FINAL [facility] ([facility]), [address] [place] [address] 53052 10/10 CMP - Core Lab CO2 mmol/L 20.0 31.0 27.7 FINAL [facility] ([facility]), [address] [place] [address] 76738 10/10 CMP - Core Lab Anion gap, mmol/ L mmol/L 4.0 15.0 8.3 FINAL [facility] ([facility]), [address] [place] [address] [place] [address] 10/10 CMP - Core Lab BUN mg/dL 9.0 23.0 19 FINAL [facility] ([facility]), [address] [place] [address] [place] [address] 10/10 CMP - Core Lab BUN/C reati nine ratio 0.0 25.0 18.3 FINAL [facility] ([facility]), [address] [place] [address] [place] [address] 10/10 CMP - Core Lab Creat inine mg/dL 0.73 1.18 1.04 FINAL [facility] ([facility]), [address] [place] [address] [place] [address] 10/10 CMP - Core Lab GFR non-A frica n Ameri can, estim ated mL/min /1.73m >60.0 FINAL [facility] ([facility]), [address] [place] [address] [place] [address] 10/10 CMP - Core Lab GFR Afric an Ameri can, estim ated mL/min /1.73m >60.0 FINAL [facility] ([facility]), [address] [place] [address] [place] [address] 10/10 CMP - Core Lab Gluco se mg/dL 74.0 106.0 110 High FINAL [facility] ([facility]), [address] [place] [address] [place] [address] 10/10 CMP - Core Lab Calci um mg/dL 8.7 10.6 9.6 FINAL [facility] ([facility]), [address] [place] [address] [place] [address] 10/10 CMP - Core Lab Album in g/dL 3.4 5.0 3.7 FINAL [facility] ([facility]), [address] [place] [address] [place] [address] 10/10 CMP - Core Lab Total prote in g/dL 5.7 8.2 6.4 FINAL [facility] ([facility]), [address] [place] [address] 26050 10/10 CMP - Core Lab A/G ratio 1.0 2.0 1.4 FINAL [facility] ([facility]), [address] [place] [address] [place] [address] 10/10 CMP - Core Lab Alkal ine phosp hatas e U/L 46.0 116.0 33 Low FINAL [facility] ([facility]), [address] [place] [address] [place] [address] 10/10 CMP - Core Lab ALT/S GPT U/L 10.0 49.0 27 FINAL [facility] ([facility]), [address] [place] [address] 19433 10/10 CMP - Core Lab AST/S GOT U/L 0.0 34.0 25 FINAL [facility] ([facility]), [address] [place] [address] 89073 10/10 CMP - Core Lab Bilir ubin, total mg/dL 0.3 1.2 0.4 FINAL [facility] ([facility]), [address] [place] [address] 55339 10/10 PSA, total ng/mL 0.04 FINAL [facility] ([facility]), [address] [place] [address] [place] [address] 10/10 TIBC and perce nt sat w/ iron panel Iron / FE ug/dL 65.0 175.0 84 FINAL [facility] ([facility]), [address] [place] [address] [place] [address] 10/10 TIBC and perce nt sat w/ iron panel TIBC ug/dL 250.0 425.0 398 FINAL [facility] ([facility]), [address] [place] [address] [place] [address] 10/10 TIBC and perce nt sat w/ iron panel Iron, % satur ation % 20.0 50.0 21 FINAL [facility] ([facility]), [address] [place] [address] 68496 10/10 Darren tin ng/mL 10.5 307.3 207.9 FINAL [facility] ([facility]), [address] [facility] [address] 10/10 CBC w/ auto diff WBC 10*3/u L 4.2 9.1 3.8 Low FINAL [facility] ([facility]), [address], [address] [place] [address] 19161 10/10 CBC w/ auto diff Alan # (ANC) 10*3/u L 1.78 5.38 2.36 FINAL [facility] ([facility]), [address], [address] [place] [address] 04121 10/10 CBC w/ auto diff LY # 10*3/u L 1.32 3.57 0.77 Low FINAL [facility] (T), [address], [address] [place], [place] [id number] 10/10 CBC w/ auto diff MO # 10*3/u L 0.3 0.82 0.46 FINAL [facility] ([facility]), [address], [address] [place] [address] 82573 10/10 CBC w/ auto diff EO # 10*3/u lL 0.04 0.54 0.23 FINAL [facility] (T), [address], [address] [place] [id number] 10/10 CBC w/ auto diff BA # 10*3/u L 0.01 0.08 0.01 FINAL [facility] ([facility]), [address], [address] [place] [address] 10/10 CBC w/ auto diff Alan % % 34.0 67.9 61.6 FINAL [facility] (T), [address], [address] [place], [place] [id number] 10/10 CBC w/ auto diff LY % % 21.8 53.1 20.1 Low FINAL [facility] (T), [address], [address] [place], [place] [id number] 10/10 CBC w/ auto diff MO % % 5.3 12.2 12.0 FINAL [facility] (T), [address], [address] [place] [address] 10/10 CBC w/ auto diff EO % % 0.8 7.0 6.0 FINAL [facility] (T), [address], [address] [place] [address] 10/10 CBC w/ auto diff BA % % 0.2 1.2 0.3 FINAL [facility] (T), [address], [address] [place] [address] 10/10 CBC w/ auto diff RBC 10*6/u L 4.63 6.08 3.70 Low FINAL [facility] (T), [address], [address] [place] [address] 10/10 CBC w/ auto diff HGB g/dL 13.7 17.5 11.2 Low FINAL [facility] (T), [address], [address] [place] [address] 10/10 CBC w/ auto diff HCT % 40.1 51.0 33.4 Low FINAL [facility] (T), [address], [address] [place] [address] 10/10 CBC w/ auto diff MCV fL 79.0 92.2 90.3 FINAL [facility] (T), [address], [address] [place] [address] 10/10 CBC w/ auto diff MCH pg 25.7 32.2 30.3 FINAL [facility] (T), [address], [address] [place] [address] 10/10 CBC w/ auto diff MCHC g/dL 32.3 36.5 33.5 FINAL [facility] (T), [address], [address] [place] [address] 10/10 CBC w/ auto diff RDW-C V, % % 11.6 14.4 14.4 FINAL [facility] ([facility]), [address], [address] [facility] [address] 10/10 CBC w/ auto diff PLT 10*3/u L 163.0 337.0 154.0 Low FINAL [facility] ([facility]), [address], [address] [facility] [address] 10/24 Lab Repor t See acid supervisor d 01/10 CMP - Core Lab Sodiu m mmol/L 136.0 145.0 139 FINAL [facility] ([facility]), [address] [place] [address] 32839 01/10 CMP - Core Lab Potas sium mmol/L 3.5 5.1 4.1 FINAL [facility] ([facility]), [address] [place] [address] 00170 01/10 CMP - Core Lab Chlor naif mmol/L 98.0 107.0 105 FINAL [facility] ([facility]), [address] [place] [address] 53623 01/10 CMP - Core Lab CO2 mmol/L 20.0 31.0 27.2 FINAL [facility] ([facility]), [address] [place] [address] 97590 01/10 CMP - Core Lab Anion gap, mmol/ L mmol/L 4.0 15.0 6.8 FINAL [facility] ([facility]), [address] [place] [address] [place] [address] 01/10 CMP - Core Lab BUN mg/dL 9.0 23.0 31 High FINAL [facility] ([facility]), [address] [place] [address] 83548 01/10 CMP - Core Lab BUN/C reati nine ratio 0.0 25.0 28.7 High FINAL [facility] ([facility]), [address] [place] [address] 65263 01/10 CMP - Core Lab Creat inine mg/dL 0.73 1.18 1.08 FINAL [facility] ([facility]), [address] [place] [address] [place] [address] 01/10 CMP - Core Lab GFR non-A frica n Ameri can, estim ated mL/min /1.73m >60.0 FINAL [facility] ([facility]), [address] [place] [address] [place] [address] 01/10 CMP - Core Lab GFR Afric an Ameri can, estim ated mL/min /1.73m >60.0 FINAL [facility] ([facility]), [address] [place] [address] [place] [address] 01/10 CMP - Core Lab Gluco se mg/dL 74.0 106.0 103 FINAL [facility] ([facility]), [address] [place] [address] [place] [address] 01/10 CMP - Core Lab Calci um mg/dL 8.7 10.6 10.1 FINAL [facility] ([facility]), [address] [place] [address] [place] [address] 01/10 CMP - Core Lab Album in g/dL 3.4 5.0 4.0 FINAL [facility] ([facility]), [address] [place] [address] [place] [address] 01/10 CMP - Core Lab Total prote in g/dL 5.7 8.2 6.7 FINAL [facility] ([facility]), [address] [place] [address] [place] [address] 01/10 CMP - Core Lab A/G ratio 1.0 2.0 1.5 FINAL [facility] ([facility]), [address] [place] [address] [place] [address] 01/10 CMP - Core Lab Alkal ine phosp hatas e U/L 46.0 116.0 36 Low FINAL [facility] ([facility]), [address] [place] [address] [place] [address] 01/10 CMP - Core Lab ALT/S GPT U/L 10.0 49.0 22 FINAL [facility] ([facility]), [address] [place] [address]2010 01/10 CMP - Core Lab AST/S GOT U/L 0.0 34.0 23 FINAL [facility] ([facility]), [address] [facility] [address] 01/10 CMP - Core Lab Bilir ubin, total mg/dL 0.3 1.2 0.4 FINAL [facility] ([facility]), [address] [facility] [address] 01/10 CBC w/ auto diff WBC 10*3/u L 4.2 9.1 4.1 Low FINAL [facility] ([facility]), [address], [address] [place] [address] 01/10 CBC w/ auto diff Alan # (ANC) 10*3/u L 1.78 5.38 2.90 FINAL [facility] ([facility]), [address], [address] [place] [address] 01/10 CBC w/ auto diff LY # 10*3/u L 1.32 3.57 0.69 Low FINAL [facility] ([facility]), [address], [address] [place] [address] 01/10 CBC w/ auto diff MO # 10*3/u L 0.3 0.82 0.37 FINAL [facility] ([facility]), [address], [address] [place] [address] 01/10 CBC w/ auto diff EO # 10*3/u lL 0.04 0.54 0.11 FINAL [facility] ([facility]), [address], [address] [place] [address] 01/10 CBC w/ auto diff BA # 10*3/u L 0.01 0.08 0.01 FINAL [facility] ([facility]), [address], [address] [place] [address] 01/10 CBC w/ auto diff Alan % % 34.0 67.9 71.1 High FINAL [facility] ([facility]), [address], [address] [place] [address] 01/10 CBC w/ auto diff LY % % 21.8 53.1 16.9 Low FINAL [facility] ([facility]), [address], [address] [place] [address] 01/10 CBC w/ auto diff MO % % 5.3 12.2 9.1 FINAL [facility] ([facility]), [address], [address] [place] [address] 01/10 CBC w/ auto diff EO % % 0.8 7.0 2.7 FINAL [facility] ([facility]), [address], [address] [place] [address] 01/10 CBC w/ auto diff BA % % 0.2 1.2 0.2 FINAL [facility] ([facility]), [address], [address] [place] [address] 01/10 CBC w/ auto diff RBC 10*6/u L 4.63 6.08 3.46 Low FINAL [facility] ([facility]), [address], [address] [place] [address] 01/10 CBC w/ auto diff HGB g/dL 13.7 17.5 10.5 Low FINAL [facility] ([facility]), [address], [address] [place] [address] 01/10 CBC w/ auto diff HCT % 40.1 51.0 31.3 Low FINAL [facility] ([facility]), [address], [address] [place] [address] 01/10 CBC w/ auto diff MCV fL 79.0 92.2 90.5 FINAL [facility] ([facility]), [address], [address] [place] [address] 01/10 CBC w/ auto diff MCH pg 25.7 32.2 30.3 FINAL [facility] ([facility]), [address], [address] [facility] [address] 01/10 CBC w/ auto diff MCHC g/dL 32.3 36.5 33.5 FINAL [facility] ([facility]), [address], [address] [facility] [address] 01/10 CBC w/ auto diff RDW-C V, % % 11.6 14.4 12.7 FINAL [facility] (T), [address], [address] [facility] [address] 01/10 CBC w/ auto diff PLT 10*3/u L 163.0 337.0 182.0 FINAL Destini [facility] ([facility]), [address], [address] [place] [id number] 01/10 PSA, total ng/mL 0.04 FINAL [facility] ([facility]), [address] [place], [place] [id number] 04/12 PSA, total ng/mL 0.04 FINAL [facility] ([facility]), [address] [place] [address] 04/12 CMP - Core Lab Sodiu m mmol/L 136.0 145.0 140 FINAL [facility] ([facility]), [address] [place] [address] 04/12 CMP - Core Lab Potas sium mmol/L 3.5 5.1 4.7 FINAL [facility] ([facility]), [address] [place] [id number] 04/12 CMP - Core Lab Chlor naif mmol/L 98.0 107.0 105 FINAL [facility] ([facility]), [address] [place] [address] 04/12 CMP - Core Lab CO2 mmol/L 20.0 31.0 25.7 FINAL [facility] ([facility]), [address] [place] [id number] 04/12 CMP - Core Lab Anion gap, mmol/ L mmol/L 4.0 15.0 9.3 FINAL [facility] ([facility]), [address] [place] [id number] 04/12 CMP - Core Lab BUN mg/dL 9.0 23.0 20 FINAL [facility] ([facility]), [address] [place] [address] 74896 04/12 CMP - Core Lab BUN/C reati nine ratio 0.0 25.0 19.0 FINAL [facility] ([facility]), [address] [place] [address] 12687 04/12 CMP - Core Lab Creat inine mg/dL 0.73 1.18 1.05 FINAL [facility] ([facility]), [address] [place] [address] 69218 04/12 CMP - Core Lab GFR non-A frica n Ameri can, estim ated mL/min /1.73m >60.0 FINAL [facility] ([facility]), [address] [place] [address] 61275 04/12 CMP - Core Lab GFR Afric an Ameri can, estim ated mL/min /1.73m >60.0 FINAL [facility] ([facility]), [address] [place] [address] 15793 04/12 CMP - Core Lab Gluco se mg/dL 74.0 106.0 109 High FINAL [facility] ([facility]), [address] [place] [address] 98881 04/12 CMP - Core Lab Calci um mg/dL 8.7 10.6 10.0 FINAL [facility] ([facility]), [address] [place] [address] 23400 04/12 CMP - Core Lab Album in g/dL 3.4 5.0 3.8 FINAL [facility] ([facility]), [address] [place] [address] [place] [address] 04/12 CMP - Core Lab Total prote in g/dL 5.7 8.2 6.6 FINAL [facility] ([facility]), [address] [place] [address] 95256 04/12 CMP - Core Lab A/G ratio 1.0 2.0 1.4 FINAL [facility] ([facility]), [address] [place] [address] 72451 04/12 CMP - Core Lab Alkal ine phosp hatas e U/L 46.0 116.0 35 Low FINAL [facility] ([facility]), [address] [place] [address] 48140 04/12 CMP - Core Lab ALT/S GPT U/L 10.0 49.0 34 FINAL [facility] ([facility]), [address] [place] [address] 99177 04/12 CMP - Core Lab AST/S GOT U/L 0.0 34.0 38 High FINAL [facility] ([facility]), [address] [place] [address] 99709 04/12 CMP - Core Lab Bilir ubin, total mg/dL 0.3 1.2 0.4 FINAL [facility] ([facility]), [address] [place] [address] 66197 04/12 CBC w/ auto diff WBC 10*3/u L 4.2 9.1 4.7 FINAL [facility] ([facility]), [address], [address] [place], [place] [id number] 04/12 CBC w/ auto diff Alan # (ANC) 10*3/u L 1.78 5.38 3.26 FINAL [facility] ([facility]), [address], [address] [place], [place] [id number] 04/12 CBC w/ auto diff LY # 10*3/u L 1.32 3.57 0.88 Low FINAL [facility] ([facility]), [address] [place], [place] [id number] 04/12 CBC w/ auto diff MO # 10*3/u L 0.3 0.82 0.42 FINAL [facility] ([facility]), [address], [address] [place], [place] [address] 04/12 CBC w/ auto diff EO # 10*3/u lL 0.04 0.54 0.15 [facility] [address], [address] [place] [address] 04/12 CBC w/ auto diff BA # 10*3/u L 0.01 0.08 0.02 FINAL [facility] ([facility]), [address], [address] [place] [address] 04/12 CBC w/ auto diff Alan % % 34.0 67.9 68.9 High FINAL [facility] ([facility]), [address], [address] [place] [address] 04/12 CBC w/ auto diff LY % % 21.8 53.1 18.6 Low FINAL [facility] ([facility]), [address], [address] [place] [address] 04/12 CBC w/ auto diff MO % % 5.3 12.2 8.9 FINAL [facility] ([facility]), [address], [address] [place] [address] 04/12 CBC w/ auto diff EO % % 0.8 7.0 3.2 FINAL [facility] ([facility]), [address], [address] [place] [address] 04/12 CBC w/ auto diff BA % % 0.2 1.2 0.4 FINAL [facility] (T), [address], [address] [place] [address] 04/12 CBC w/ auto diff RBC 10*6/u L 4.63 6.08 3.84 Low FINAL [facility] ([facility]), [address], [address] [place] [address] 04/12 CBC w/ auto diff HGB g/dL 13.7 17.5 11.4 Low FINAL [facility] (T), [address], [address] [place] [address] 04/12 CBC w/ auto diff HCT % 40.1 51.0 35.6 Low FINAL [facility] (T), [address], [address] [place], [place] [phone] 04/12 CBC w/ auto diff MCV fL 79.0 92.2 92.7 High FINAL [facility] (T), [address], [address] [place], [place] [address] 04/12 CBC w/ auto diff MCH pg 25.7 32.2 29.7 FINAL [facility] ([facility]), [address], [address] [place] [id number] 04/12 CBC w/ auto diff MCHC g/dL 32.3 36.5 32.0 Low FINAL [facility] ([facility]), [address], [address] [place] [address] 04/12 CBC w/ auto diff RDW-C V, % % 11.6 14.4 13.7 FINAL [facility] ([facility]), [address], [address] [place] [address] 04/12 CBC w/ auto diff PLT 10*3/u L 163.0 337.0 177.0 FINAL [facility] ([facility]), [address], [address] [place] [id number] 07/10 CMP - Core Lab Sodiu m mmol/L 136.0 145.0 140 FINAL [facility] ([facility]), [address] [place], [place] [phone] 07/10 CMP - Core Lab Potas sium mmol/L 3.5 5.1 4.4 FINAL [facility] ([facility]), [address] [place] [address] 07/10 CMP - Core Lab Chlor naif mmol/L 98.0 107.0 105 FINAL [facility] ([facility]), [address] [place], [place] [phone] 07/10 CMP - Core Lab CO2 mmol/L 20.0 31.0 25.7 FINAL [facility] ([facility]), [address] [place] [address] [place] [address] 07/10 CMP - Core Lab Anion gap, mmol/ L mmol/L 4.0 15.0 9.3 FINAL [facility] ([facility]), [address] [place] [address] [place] [address] 07/10 CMP - Core Lab BUN mg/dL 9.0 23.0 23 FINAL [facility] ([facility]), [address] [place] [address] [place] [address] 07/10 CMP - Core Lab BUN/C reati nine ratio 0.0 25.0 22.8 FINAL [facility] ([facility]), [address] [place] [address] [place] [address] 07/10 CMP - Core Lab Creat inine mg/dL 0.73 1.18 1.01 FINAL [facility] ([facility]), [address] [place] [address] [place] [address] 07/10 CMP - Core Lab eGFR, mL/mi n/1.7 3 mL/min /1.73m 60.0 0.0 >60.0 FINAL [facility] ([facility]), [address] [place] [address] [place] [address] 07/10 CMP - Core Lab Gluco se mg/dL 74.0 106.0 124 High FINAL [facility] ([facility]), [address] [place] [address] [place] [address] 07/10 CMP - Core Lab Calci um mg/dL 8.7 10.6 10.4 FINAL [facility] ([facility]), [address] [place] [address] [place] [address] 07/10 CMP - Core Lab Album in g/dL 3.4 5.0 4.1 FINAL [facility] ([facility]), [address] [place] [address] [place] [address] 07/10 CMP - Core Lab Total prote in g/dL 5.7 8.2 7.1 FINAL [facility] ([facility]), [address] [place] [address] [place] [address] 07/10 CMP - Core Lab A/G ratio 1.0 2.0 1.4 [facility]AL [facility]), [facility] [address] 07/10 CMP - Core Lab Alkal ine phosp hatas e U/L 46.0 116.0 38 Low [facility]), [address] [place] [address] 55247 07/10 CMP - Core Lab ALT/S GPT U/L 10.0 49.0 23 [facility] ([facility]), [address] [place] [address] 93431 07/10 CMP - Core Lab AST/S GOT U/L 0.0 34.0 26 [facility] ([facility]), [address] [place] [address] 46054 07/10 CMP - Core Lab Bilir ubin, total mg/dL 0.3 1.2 0.4 [facility]AL [facility] ([facility]), [address] [place] [address] 47472 07/10 CBC w/ auto diff WBC 10*3/u L 4.2 9.1 5.3 [facility]), [address], [address] [place] [address] 65004 07/10 CBC w/ auto diff Alan # (ANC) 10*3/u L 1.78 5.38 3.62 FINAL [facility] ([facility]), [address], [address] [place] [address] 07/10 CBC w/ auto diff LY # 10*3/u L 1.32 3.57 0.96 Low [facility] ([facility]), [address], [address] [place] [address] 14589 07/10 CBC w/ auto diff MO # 10*3/u L 0.3 0.82 0.47 [facility] ([facility]), [address], [address] [place] [address] 07/10 CBC w/ auto diff EO # 10*3/u lL 0.04 0.54 0.24 FINAL [facility] ([facility]), [address], [address] [place] [address] 07/10 CBC w/ auto diff BA # 10*3/u L 0.01 0.08 0.01 FINAL [facility] ([facility]), [address], [address] [place] [address] 07/10 CBC w/ auto diff Alan % % 34.0 67.9 68.3 High FINAL [facility] ([facility]), [address], [address] [place] [address] 07/10 CBC w/ auto diff LY % % 21.8 53.1 18.1 Low FINAL [facility] ([facility]), [address], [address] [place] [address] 07/10 CBC w/ auto diff MO % % 5.3 12.2 8.9 FINAL [facility] ([facility]), [address], [address] [place] [address] 07/10 CBC w/ auto diff EO % % 0.8 7.0 4.5 FINAL [facility] ([facility]), [address], [address] [place] [address] 07/10 CBC w/ auto diff BA % % 0.2 1.2 0.2 FINAL [facility] ([facility]), [address], [address] [place] [address] 07/10 CBC w/ auto diff RBC 10*6/u L 4.63 6.08 4.05 Low FINAL [facility] ([facility]), [address], [address] [place] [address] 07/10 CBC w/ auto diff HGB g/dL 13.7 17.5 12.1 Low FINAL [facility] ([facility]), [address], [address] [facility] [address] 07/10 CBC w/ auto diff HCT % 40.1 51.0 37.2 Low FINAL [facility] ([facility]), [address], [address] [place], [place] [id number] 07/10 CBC w/ auto diff MCV fL 79.0 92.2 91.9 FINAL [facility] (T), [address], [address] [place], [place] [id number] 07/10 CBC w/ auto diff MCH pg 25.7 32.2 29.9 [facility] [address], [address] [place], [place] [address] 07/10 CBC w/ auto diff MCHC g/dL 32.3 36.5 32.5 [facility] [address], [address] [place], [place] [id number] 07/10 CBC w/ auto diff RDW-C V, % % 11.6 14.4 13.6 [facility] [address], [address] [place], [place] [phone] 07/10 CBC w/ auto diff PLT 10*3/u L 163.0 337.0 166.0 FINAL [facility] (T), [address], [address] [place] [address] 97201 07/10 PSA, total ng/mL 0.04 FINAL [facility] ([facility]), [address] [place] [address] 50125 10/10 CMP - Core Lab Sodiu m mmol/L 136.0 145.0 139 FINAL [facility] ([facility]), [address] [place], [place] [phone] 10/10 CMP - Core Lab Potas sium mmol/L 3.5 5.1 4.2 FINAL [facility] ([facility]), [address] [place], [place] [phone] 10/10 CMP - Core Lab Chlor naif mmol/L 98.0 107.0 107 FINAL [facility] ([facility]), [address] [place] [address] [place] [address] 10/10 CMP - Core Lab CO2 mmol/L 20.0 31.0 27.3 FINAL [facility] ([facility]), [address] [place] [address] [place] [address] 10/10 CMP - Core Lab Anion gap, mmol/ L mmol/L 4.0 15.0 4.7 FINAL [facility] ([facility]), [address] [place] [address] [place] [address] 10/10 CMP - Core Lab BUN mg/dL 9.0 23.0 15 FINAL [facility] ([facility]), [address] [place] [address] 09278 10/10 CMP - Core Lab BUN/C reati nine ratio 0.0 25.0 15.3 FINAL [facility] ([facility]), [address] [place] [address] 56961 10/10 CMP - Core Lab Creat inine mg/dL 0.73 1.18 0.98 FINAL [facility] ([facility]), [address] [place] [address] 60142 10/10 CMP - Core Lab eGFR, mL/mi n/1.7 3 mL/min /1.73m 60.0 0.0 >60.0 FINAL [facility] ([facility]), [address] [place] [address] [place] [address] 10/10 CMP - Core Lab Gluco se mg/dL 74.0 106.0 95 FINAL [facility] ([facility]), [address] [place] [address] [place] [address] 10/10 CMP - Core Lab Calci um mg/dL 8.7 10.6 9.5 FINAL [facility] ([facility]), [address] [place] [address] [place] [address] 10/10 CMP - Core Lab Album in g/dL 3.4 5.0 3.8 FINAL [facility] ([facility]), [address] [place] [address] 13721 10/10 CMP - Core Lab Total prote in g/dL 5.7 8.2 6.5 FINAL [facility] ([facility]), [address] [place] [address] 88975 10/10 CMP - Core Lab A/G ratio 1.0 2.0 1.4 FINAL [facility] ([facility]), [address] [place] [address] 09483 10/10 CMP - Core Lab Alkal ine phosp hatas e U/L 46.0 116.0 44 Low FINAL [facility] ([facility]), [address] [place] [address] 21410 10/10 CMP - Core Lab ALT/S GPT U/L 10.0 49.0 19 FINAL [facility] ([facility]), [address] [place] [address]46 10/10 CMP - Core Lab AST/S GOT U/L 0.0 34.0 23 FINAL [facility] ([facility]), [address] [place] [address] 82325 10/10 CMP - Core Lab Bilir ubin, total mg/dL 0.3 1.2 0.4 FINAL [facility] ([facility]), [address] [place] [address] 61326 10/10 CBC w/ auto diff WBC 10*3/u L 4.2 9.1 4.4 FINAL [facility] ([facility]), [address], [address] [place] [address] 25903 10/10 CBC w/ auto diff Alan # (ANC) 10*3/u L 1.78 5.38 3.10 FINAL [facility] ([facility]), [address], [address] [place] [address] 79087 10/10 CBC w/ auto diff LY # 10*3/u L 1.32 3.57 0.74 Low FINAL [facility] ([facility]), [address], [address] [place] [address] 89507 10/10 CBC w/ auto diff MO # 10*3/u L 0.3 0.82 0.36 FINAL [facility] ([facility]), [address], [address] [place] [address] 10/10 CBC w/ auto diff EO # 10*3/u lL 0.04 0.54 0.14 FINAL [facility] ([facility]), [address], [address] [place] [address] 10/10 CBC w/ auto diff BA # 10*3/u L 0.01 0.08 0.02 FINAL [facility] ([facility]), [address], [address] [place] [address] 10/10 CBC w/ auto diff Alan % % 34.0 67.9 71.0 High FINAL [facility] (T), [address], [address] [place] [address] 10/10 CBC w/ auto diff LY % % 21.8 53.1 17.0 Low FINAL [facility] ([facility]), [address], [address] [place] [address] 10/10 CBC w/ auto diff MO % % 5.3 12.2 8.3 FINAL [facility] (T), [address], [address] [place] [address] 10/10 CBC w/ auto diff EO % % 0.8 7.0 3.2 FINAL [facility] ([facility]), [address], [address] [place] [address] 10/10 CBC w/ auto diff BA % % 0.2 1.2 0.5 FINAL [facility] ([facility]), [address], [address] [place] [address] 10/10 CBC w/ auto diff RBC 10*6/u L 4.63 6.08 4.04 Low FINAL [facility] (T), [address], [address] [place] [address] 10/10 CBC w/ auto diff HGB g/dL 13.7 17.5 12.4 Low FINAL [facility] (T), [address], [address] [place] [address] 35948 10/10 CBC w/ auto diff HCT % 40.1 51.0 38.0 Low FINAL [facility] (T), [address], [address] [place] [id number] 10/10 CBC w/ auto diff MCV fL 79.0 92.2 94.1 High FINAL [facility] (T), [address], [address] [place], [place] [id number] 10/10 CBC w/ auto diff MCH pg 25.7 32.2 30.7 FINAL [facility] (T), [address], [address] [place], [place] [id number] 10/10 CBC w/ auto diff MCHC g/dL 32.3 36.5 32.6 FINAL [facility] (T), [address], [address] [place] [id number] 10/10 CBC w/ auto diff RDW-C V, % % 11.6 14.4 13.9 FINAL [facility] (T), [address], [address] [place] [id number] 10/10 CBC w/ auto diff PLT 10*3/u L 163.0 337.0 174.0 FINAL [facility] (T), [address], [address] [place], [place] [phone] 10/10 PSA, total ng/mL 0.04 FINAL [facility] ([facility]), [address] [place] [address] 36214 01/10 PSA, total ng/mL < 0.04 [facility] ([facility]), [address] [place] [address] 57998 01/10 CBC w/ auto diff WBC 10*3/u L 4.2 9.1 5.7 FINAL [facility] ([facility]), [address], [address] [facility] [address] 01/10 CBC w/ auto diff Alan # (ANC) 10*3/u L 1.78 5.38 3.77 [facility]), [address], [address] [place] [address] 01/10 CBC w/ auto diff LY # 10*3/u L 1.32 3.57 1.16 Low FINAL [facility] ([facility]), [address], [address] [place] [address] 01/10 CBC w/ auto diff MO # 10*3/u L 0.3 0.82 0.49 FINAL [facility] ([facility]), [address], [address] [place] [address] 01/10 CBC w/ auto diff EO # 10*3/u lL 0.04 0.54 0.25 FINAL [facility] ([facility]), [address], [address] [facility] [address] 01/10 CBC w/ auto diff BA # 10*3/u L 0.01 0.08 0.03 FINAL [facility] ([facility]), [address], [address] [place] [address] 01/10 CBC w/ auto diff Alan % % 34.0 67.9 66.1 FINAL [facility] ([facility]), [address], [address] [place] [address] 01/10 CBC w/ auto diff LY % % 21.8 53.1 20.4 Low [facility]), [address], [address] [place] [address] 01/10 CBC w/ auto diff MO % % 5.3 12.2 8.6 [facility]), [address], [address] [place] [address] 01/10 CBC w/ auto diff EO % % 0.8 7.0 4.4 FINAL [facility] (T), [address], [address] [facility] [address] 01/10 CBC w/ auto diff BA % % 0.2 1.2 0.5 FINAL [facility] ([facility]), [address], [address] [place] [id number] 01/10 CBC w/ auto diff RBC 10*6/u L 4.63 6.08 4.78 FINAL [facility] ([facility]), [address], [address] [facility] [address] 01/10 CBC w/ auto diff HGB g/dL 13.7 17.5 14.4 FINAL [facility] ([facility]), [address], [address] [place], [place] [id number] 01/10 CBC w/ auto diff HCT % 40.1 51.0 43.0 FINAL [facility] ([facility]), [address], [address] [place] [id number] 01/10 CBC w/ auto diff MCV fL 79.0 92.2 90.0 FINAL [facility] ([facility]), [address], [address] [place], [place] [phone] 01/10 CBC w/ auto diff MCH pg 25.7 32.2 30.1 FINAL [facility] ([facility]), [address], [address] [place] [address] 01/10 CBC w/ auto diff MCHC g/dL 32.3 36.5 33.5 FINAL [facility] ([facility]), [address], [address] [place], [place] [id number] 01/10 CBC w/ auto diff RDW-C V, % % 11.6 14.4 13.2 FINAL [facility] ([facility]), [address], [address] [facility] [address] 01/10 CBC w/ auto diff PLT 10*3/u L 163.0 337.0 191.0 FINAL [facility] ([facility]), [address], [address] [facility] [place] [address] 01/10 CMP - Core Lab Sodiu m mmol/L 136.[address] [facility] ([facility]), [address] [place] [address] [place] [address] 01/10 CMP - Core Lab Potas sium mmol/L 3.[address] [facility] ([facility]), [address] [place] [address] [place] [address] 01/10 CMP - Core Lab Chlor naif mmol/L 98.[address] [facility] ([facility]), [address] [place] [address] [place] [address] 01/10 CMP - Core Lab CO2 mmol/L 20.[address] [facility] ([facility]), [address] [place] [address] [place] [address] 01/10 CMP - Core Lab Anion gap, mmol/ L mmol/L 4.[address] [facility] ([facility]), [address] [place] [address] [place] [address] 01/10 CMP - Core Lab BUN mg/dL 9.[address] 23.[address] [facility] ([facility]), [address] [place] [address] [place] [address] 01/10 CMP - Core Lab BUN/C reati nine ratio 0.[address] [facility] ([facility]), [address] [place] [address] [place] [address] 01/10 CMP - Core Lab Creat inine mg/dL 0.[address] [facility] ([facility]), [address] [place] [address] [place] [address] 01/10 CMP - Core Lab eGFR, mL/mi n/1.7 3 mL/min /1.73m 60.0 0.0 >[address] [facility] ([facility]), [address] [place] [address] [place] [address] 01/10 CMP - Core Lab Gluco se mg/dL 74.[address] [facility] ([facility]), [address] [place] [address] [place] [address] 01/10 CMP - Core Lab Calci um mg/dL 8.7 [address] [facility] ([facility]), [address] [place] [address] [place] [address] 01/10 CMP - Core Lab Album in g/dL 3.[address] [facility] ([facility]), [address] [place] [address] [place] [address] 01/10 CMP - Core Lab Total prote in g/dL 5.7 [address] [facility] ([facility]), [address] [place] [address] [place] [address] 01/10 CMP - Core Lab A/G ratio 1.0 [address] [facility] ([facility]), [address] [place] [address] [place] [id number] 01/10 CMP - Core Lab Alkal ine phosp hatas e U/L 46.[address] [facility] ([facility]), [address] [place] [address] [place] [address] 01/10 CMP - Core Lab ALT/S GPT U/L 10.[address] 49[address] [facility] ([facility]), [address] [place] [address] [place] [address] 01/10 CMP - Core Lab AST/S GOT U/L 0.[address] 34[address] [facility] ([facility]), [address] [place] [address] [place] [address] 01/10 CMP - Core Lab Bilir ubin, total mg/dL 0.[address] [facility] ([facility]), [address] [place] [address] [place] [address] 04/11 PSA, total ng/mL < 0.04 FINAL [facility] ([facility]), [address] [place] [address] [place] [address] 04/11 CMP - Core Lab Sodiu m mmol/L 136.0 145.0 142 FINAL [facility] ([facility]), [address] [place] [id number] 04/11 CMP - Core Lab Potas sium mmol/L 3.4 5.1 4.5 FINAL [facility] ([facility]), [address] [place] [address] 04/11 CMP - Core Lab Chlor naif mmol/L 98.0 107.0 106 FINAL [facility] ([facility]), [address] [place] [address] 22761 04/11 CMP - Core Lab CO2 mmol/L 20.0 31.0 25.3 FINAL [facility] ([facility]), [address] [place] [address] [place] [address] 04/11 CMP - Core Lab Anion gap, mmol/ L mmol/L 4.0 15.0 10.7 FINAL [facility] ([facility]), [address] [place] [address] [place] [address] 04/11 CMP - Core Lab BUN mg/dL 9.0 23.0 23 FINAL [facility] ([facility]), [address] [place] [address] [place] [address] 04/11 CMP - Core Lab BUN/C reati nine ratio 0.0 25.0 24.2 FINAL [facility] ([facility]), [address] [place] [address] [place] [address] 04/11 CMP - Core Lab Creat inine mg/dL 0.73 1.18 0.95 FINAL [facility] ([facility]), [address] [place] [address] [place] [address] 04/11 CMP - Core Lab eGFR, mL/mi n/1.7 3 mL/min /1.73m 60.0 0.0 >60.0 FINAL [facility] ([facility]), [address] [place] [address] [place] [address] 04/11 CMP - Core Lab Gluco se mg/dL 74.0 106.0 87 FINAL [facility] ([facility]), [address] [place] [address] [place] [address] 04/11 CMP - Core Lab Calci um mg/dL 8.7 10.6 9.9 FINAL [facility] ([facility]), [address] [place] [address] [place] [address] 04/11 CMP - Core Lab Album in g/dL 3.4 5.0 3.9 FINAL [facility] ([facility]), [address] [place] [address] [place] [address] 04/11 CMP - Core Lab Total prote in g/dL 5.7 8.2 6.3 FINAL [facility] ([facility]), [address] [place] [address] [place] [address] 04/11 CMP - Core Lab A/G ratio 1.0 2.0 1.6 FINAL [facility] ([facility]), [address] [place] [address] [place] [address] 04/11 CMP - Core Lab Alkal ine phosp hatas e U/L 46.0 116.0 34 Low FINAL [facility] ([facility]), [address] [place] [address] [place] [address] 04/11 CMP - Core Lab ALT/S GPT U/L 10.0 49.0 19 FINAL [facility] ([facility]), [address] [place] [address] [place] [address] 04/11 CMP - Core Lab AST/S GOT U/L 0.0 34.0 22 FINAL [facility] ([facility]), [address] [place] [address] [place] [address] 04/11 CMP - Core Lab Bilir ubin, total mg/dL 0.3 1.2 0.3 FINAL [facility] ([facility]), [address] [place] [address] [place] [address] 04/11 CBC w/ auto diff WBC 10*3/u L 4.2 9.1 3.8 Low FINAL [facility] ([facility]), [address], [address] [place] [address] 04/11 CBC w/ auto diff Alan # (ANC) 10*3/u L 1.78 5.38 2.53 FINAL [facility] ([facility]), [address], [address] [place] [address] 04/11 CBC w/ auto diff LY # 10*3/u L 1.32 3.57 0.70 Low FINAL [facility] ([facility]), [address], [address] [place] [address] 04/11 CBC w/ auto diff MO # 10*3/u L 0.3 0.82 0.40 FINAL [facility] ([facility]), [address], [address] [place] [address] 04/11 CBC w/ auto diff EO # 10*3/u lL 0.04 0.54 0.17 FINAL [facility] ([facility]), [address], [address] [place] [address] 04/11 CBC w/ auto diff BA # 10*3/u L 0.01 0.08 0.01 FINAL [facility] ([facility]), [address], [address] [place] [address] 04/11 CBC w/ auto diff Alan % % 34.0 67.9 66.3 FINAL [facility] ([facility]), [address], [address] [place] [address] 04/11 CBC w/ auto diff LY % % 21.8 53.1 18.4 Low FINAL [facility] ([facility]), [address], [address] [place] [address] 04/11 CBC w/ auto diff MO % % 5.3 12.2 10.5 FINAL [facility] ([facility]), [address], [address] [place] [address] 04/11 CBC w/ auto diff EO % % 0.8 7.0 4.5 FINAL [facility] ([facility]), [address], [address] [place] [address] 04/11 CBC w/ auto diff BA % % 0.2 1.2 0.3 FINAL [facility] ([facility]), [address], [address] [place] [address] 04/11 CBC w/ auto diff RBC 10*6/u L 4.63 6.08 3.66 Low FINAL [facility] ([facility]), [address], [address] [place] [address] 04/11 CBC w/ auto diff HGB g/dL 13.7 17.5 11.4 Low FINAL [facility] (T), [address], [address] [place] [address] 04/11 CBC w/ auto diff HCT % 40.1 51.0 34.8 Low FINAL [facility] ([facility]), [address], [address] [place] [address] 04/11 CBC w/ auto diff MCV fL 79.0 92.2 95.1 High FINAL [facility] (T), [address], [address] [place] [address] 04/11 CBC w/ auto diff MCH pg 25.7 32.2 31.1 FINAL [facility] ([facility]), [address], [address] [place] [address] 04/11 CBC w/ auto diff MCHC g/dL 32.3 36.5 32.8 FINAL [facility] (T), [address], [address] [place] [address] 04/11 CBC w/ auto diff RDW-C V, % % 11.6 14.4 13.3 FINAL [facility] (T), [address], [address] [place] [address] 04/11 CBC w/ auto diff PLT 10*3/u L 163.0 337.0 183.0 FINAL Shayne Castellanos [facility] ([facility]), [address], [address] [place] [address] 07/11 CBC w/ auto diff WBC 10*3/u L 4.2 9.1 5.0 FINAL Milvia Johnson [facility] ([facility]), [address], [address] [place] [address] 07/11 CBC w/ auto diff Alan # (ANC) 10*3/u L 1.78 5.38 3.34 FINAL Milvia Johnson [facility] (T), [address], [address] [place] [address] 07/11 CBC w/ auto diff LY # 10*3/u L 1.32 3.57 0.98 Low FINAL Milvia Johnson [facility] (T), [address], [address] [place] [address] 07/11 CBC w/ auto diff MO # 10*3/u L 0.3 0.82 0.41 FINAL Milvia Johnson [facility] (T), [address], [address] [place] [address] 07/11 CBC w/ auto diff EO # 10*3/u lL 0.04 0.54 0.24 FINAL Milvia Johnson [facility] ([facility]), [address], [address] [place] [address] 07/11 CBC w/ auto diff BA # 10*3/u L 0.01 0.08 0.03 FINAL Milvia Johnson [facility] ([facility]), [address], [address] [place] [address] 07/11 CBC w/ auto diff Alan % % 34.0 67.9 66.8 FINAL Milvia Johnson [facility] ([facility]), [address], [address] [place] [address] 07/11 CBC w/ auto diff LY % % 21.8 53.1 19.6 Low [facility] [address], [address] [place] [address] 07/11 CBC w/ auto diff MO % % 5.3 12.2 8.2 FINAL Milvia Johnson [facility] ([facility]), [address], [address] [place] [address] 07/11 CBC w/ auto diff EO % % 0.8 7.0 4.8 [facility] [address], [address] [place] [address] 07/11 CBC w/ auto diff BA % % 0.2 1.2 0.6 [facility] [address], [address] [place] [address] 07/11 CBC w/ auto diff RBC 10*6/u L 4.63 6.08 3.97 Low [facility] [address], [address] [place] [address] 07/11 CBC w/ auto diff HGB g/dL 13.7 17.5 11.9 Low [facility] [address], [address] [place] [address] 07/11 CBC w/ auto diff HCT % 40.1 51.0 36.6 Low [facility] [address], [address] [place] [address] 07/11 CBC w/ auto diff MCV fL 79.0 92.2 92.2 [facility] [address], [address] [place] [address] 07/11 CBC w/ auto diff MCH pg 25.7 32.2 30.0 [facility] [address], [address] [place] [address] 07/11 CBC w/ auto diff MCHC g/dL 32.3 36.5 32.5 [facility] [address], [address] [facility] [place] [address] 07/11 CBC w/ auto diff RDW-C V, % % 11.6 14.4 13.6 FINAL Milvia Johnson [facility] ([facility]), [address], [address] [facility] [address] 07/11 CBC w/ auto diff PLT 10*3/u L 163.0 337.0 180 FINAL Milvia Johnson [facility] ([facility]), [address], [address] [facility] [place] [address] 07/11 PSA, total ng/mL < 0.04 [facility]AL [facility]), [address] [place] [address] [place] [address] 07/11 CMP - Core Lab Sodiu m mmol/L 136.0 145.0 143 FINAL Milvia [facility] ([facility]), [address] [place] [address] [place] [address] 07/11 CMP - Core Lab Potas sium mmol/L 3.4 5.1 4.8 FINAL Milvia [facility] ([facility]), [address] [place] [address] 07/11 CMP - Core Lab Chlor naif mmol/L 98.0 107.0 105 FINAL Milvia [facility] ([facility]), [address] [place] [address] [place] [address] 07/11 CMP - Core Lab CO2 mmol/L 20.0 31.0 29.5 FINAL [facility] ([facility]), [address] [place] [address] [place] [address] 07/11 CMP - Core Lab Anion gap, mmol/ L mmol/L 4.0 15.0 8.5 FINAL [facility] ([facility]), [address] [place] [address] [place] [address] 07/11 CMP - Core Lab BUN mg/dL 9.0 23.0 19 FINAL Milvia [facility] ([facility]), [address] [place] [address] [place] [address] 07/11 CMP - Core Lab Creat inine mg/dL 0.73 1.18 1.02 [facility]), [address] [place] [address] 07/11 CMP - Core Lab BUN/C reati nine ratio 0.0 25.0 18.6 [facility]), [address] [place] [address] 07/11 CMP - Core Lab eGFR, mL/mi n/1.7 3 mL/min /1.73m >60.0 [facility]), [address] [place] [address] 275[address] 07/11 CMP - Core Lab Gluco se mg/dL 74.0 106.0 99 [facility]), [address] [place], [place] [id number] 07/11 CMP - Core Lab Calci um mg/dL 8.7 10.6 10.1 [facility]), [address] [place] [address] 07/11 CMP - Core Lab Album in g/dL 3.4 5.0 3.8 [facility]), [address] [place] [address] 07/11 CMP - Core Lab Total prote in g/dL 5.7 8.2 6.6 [facility]), [address] [place] [address]57 07/11 CMP - Core Lab A/G ratio 1.0 2.0 1.4 [facility]), [address] [place] [address] 07/11 CMP - Core Lab Alkal ine phosp hatas e U/L 46.0 116.0 36 Low [facility]), [address] [place] [address] 114[address] 07/11 CMP - Core Lab ALT/S GPT U/L 10.0 49.0 21 FINAL Milvia [facility] ([facility]), [address] [facility] [address] 07/11 CMP - Core Lab AST/S GOT U/L 0.0 34.0 23 FINAL Milvia [facility] ([facility]), [address] [facility] [address] 07/11 CMP - Core Lab Bilir ubin, total mg/dL 0.3 1.2 0.4 FINAL Milvia [facility] ([facility]), [address] [facility] [address] 10/02 CBC w/ auto diff WBC 10*3/u L 4.2 9.1 4.8 FINAL [facility] ([facility]), [address], [address] [place] [address] 10/02 CBC w/ auto diff Alan # (ANC) 10*3/u L 1.78 5.38 3.21 FINAL [facility] ([facility]), [address], [address] [place] [address] 10/02 CBC w/ auto diff LY # 10*3/u L 1.32 3.57 0.78 Low FINAL [facility] ([facility]), [address], [address] [place] [address] 10/02 CBC w/ auto diff MO # 10*3/u L 0.3 0.82 0.54 FINAL [facility] ([facility]), [address], [address] [place] [address] 10/02 CBC w/ auto diff EO # 10*3/u lL 0.04 0.54 0.27 FINAL [facility] ([facility]), [address], [address] [place] [address] 10/02 CBC w/ auto diff BA # 10*3/u L 0.01 0.08 0.02 FINAL [facility] ([facility]), [address], [address] [place] [address] 10/02 CBC w/ auto diff Alan % % 34.0 67.9 66.6 FINAL [facility] ([facility]), [address], [address] [place] [address] 10/02 CBC w/ auto diff LY % % 21.8 53.1 16.2 Low FINAL [facility] ([facility]), [address], [address] [place] [address] 10/02 CBC w/ auto diff MO % % 5.3 12.2 11.2 FINAL [facility] ([facility]), [address], [address] [place] [address] 10/02 CBC w/ auto diff EO % % 0.8 7.0 5.6 FINAL [facility] (T), [address], [address] [place] [address] 10/02 CBC w/ auto diff BA % % 0.2 1.2 0.4 FINAL [facility] (T), [address], [address] [place] [address] 10/02 CBC w/ auto diff RBC 10*6/u L 4.63 6.08 3.84 Low FINAL [facility] (T), [address], [address] [place] [address] 10/02 CBC w/ auto diff HGB g/dL 13.7 17.5 11.4 Low FINAL [facility] (T), [address], [address] [place] [address] 10/02 CBC w/ auto diff HCT % 40.1 51.0 34.7 Low FINAL [facility] (T), [address], [address] [place] [address] 10/02 CBC w/ auto diff MCV fL 79.0 92.2 90.4 FINAL [facility] (T), [address], [address] [place] [address] 10/02 CBC w/ auto diff MCH pg 25.7 32.2 29.7 FINAL [facility] ([facility]), [address], [address] [facility] [address] 10/02 CBC w/ auto diff MCHC g/dL 32.3 36.5 32.9 FINAL [facility] (T), [address], [address] [facility] [address] 10/02 CBC w/ auto diff RDW-C V, % % 11.6 14.4 13.7 FINAL [facility] (T), [address], [address] [facility] [address] 10/02 CBC w/ auto diff PLT 10*3/u L 163.0 337.0 174 FINAL [facility] (T), [address], [address] [facility] [address] 10/02 PSA, total ng/mL < 0.04 FINAL [facility] ([facility]), [address] [place] [address] 10/02 CMP - Core Lab Sodiu m mmol/L 136.0 145.0 140 FINAL [facility] ([facility]), [address] [place] [address] 10/02 CMP - Core Lab Potas sium mmol/L 3.4 5.1 4.3 FINAL [facility] ([facility]), [address] [place] [address]326 10/02 CMP - Core Lab Chlor naif mmol/L 98.0 107.0 105 FINAL [facility] ([facility]), [address] [place] [address] 10/02 CMP - Core Lab CO2 mmol/L 20.0 31.0 25.1 FINAL [facility] ([facility]), [address] [place] [address] 10/02 CMP - Core Lab Anion gap, mmol/ L mmol/L 4.0 15.0 9.9 FINAL [facility] ([facility]), [address] [place] [address]7866 10/02 CMP - Core Lab BUN mg/dL 9.0 23.0 29 High FINAL [facility] ([facility]), [address] [place] [address] [place] [address] 10/02 CMP - Core Lab Creat inine mg/dL 0.73 1.18 1.07 FINAL [facility] ([facility]), [address] [place] [address] [place] [address] 10/02 CMP - Core Lab BUN/C reati nine ratio 0.0 25.0 27.1 High FINAL [facility] ([facility]), [address] [place] [address] [place] [address] 10/02 CMP - Core Lab eGFR, mL/mi n/1.7 3 mL/min /1.73m >60.0 FINAL [facility] ([facility]), [address] [place] [address] [place] [address] 10/02 CMP - Core Lab Gluco se mg/dL 74.0 106.0 93 FINAL [facility] ([facility]), [address] [place] [address] [place] [address] 10/02 CMP - Core Lab Calci um mg/dL 8.7 10.6 9.9 FINAL [facility] ([facility]), [address] [place] [address] [place] [address] 10/02 CMP - Core Lab Album in g/dL 3.4 5.0 4.1 FINAL [facility] ([facility]), [address] [place] [address] [place] [address] 10/02 CMP - Core Lab Total prote in g/dL 5.7 8.2 6.6 FINAL [facility] ([facility]), [address] [place] [address] [place] [address] 10/02 CMP - Core Lab A/G ratio 1.0 2.0 1.6 FINAL [facility] ([facility]), [address] [place] [address] [place] [address] 10/02 CMP - Core Lab Alkal ine phosp hatas e U/L 46.0 116.0 39 Low FINAL [facility] ([facility]), [address] [facility] [address] 10/02 CMP - Core Lab ALT/S GPT U/L 10.0 49.0 22 FINAL Shayne [facility] ([facility]), [address] [place] [address] 10/02 CMP - Core Lab AST/S GOT U/L 0.0 34.0 22 FINAL Sh[facility]ne [facility]), [address] [place] [address] 10/02 CMP - Core Lab Bilir ubin, total mg/dL 0.3 1.2 0.4 FINAL [facility] ([facility]), [address] [place] [address] Medications Date Name Route Dose Frequency Instructions [...] Insomnia Active Vital Signs Date Type Value 10/10/2019 BMI 30.93 10/10/2019 Height 64.00 10/10/2019 [...] Beat 70.00 10/08/2020 Body Temperature 98.20 10/08/2020 BSA 1.92 10/08/2020 BMI 30.79 10/08/2020 Height 64.00 10/08/2020 Weight 179.40 10/08/2020 Pain Scale 0.00 10/08/2020 Intravascular Systolic 128 10/08/2020 Intravascular Diastolic 82 10/08/2020 Respiratory Rate 12.00 10/08/2020 Heart Beat 84.00 01/07/2021 Body Temperature 97.90 01/07/2021 BMI 30.28 01/07/2021 Weight 176.40 01/07/2021 Height 64.00 01/07/2021 BSA 1.90 01/07/2021 Intravascular Systolic 116 01/07/2021 Intravascular Diastolic 77 01/07/2021 Oxygen Saturation 98.00 01/07/2021 Respiratory Rate 15.00 01/07/2021 Heart Beat 70.00 01/07/2021 Pain Scale 0.00 04/08/2021 Body Temperature 98.40 04/08/2021 Heart Beat [...] Beat 79.00 01/05/2022 Pain Scale 0.00 04/07/2022 BMI 31.55 04/07/2022 Height 64.00 04/07/2022 Weight 183.80 04/07/2022 Pain Scale 0.00 04/07/2022 BSA 1.94 04/07/2022 Oxygen Saturation 97.00 04/07/2022 Respiratory Rate 16.00 04/07/2022 Heart Beat 90.00 04/07/2022 Body Temperature 97.80 04/07/2022 Intravascular Systolic 125 04/07/2022 Intravascular Diastolic 78 07/05/2022 Body Temperature 97.90 07/05/2022 BSA 1.97 07/05/2022 BMI 32.58 07/05/2022 Height 64.00 07/05/2022 Weight 189.80 07/05/2022 Pain Scale 0.00 07/05/2022 Intravascular Systolic 158 07/05/2022 Intravascular Diastolic 83 07/05/2022 Respiratory Rate 16.00 07/05/2022 Heart Beat 75.00 07/07/2022 Respiratory Rate 16.00 07/07/2022 Intravascular Systolic 150 07/07/2022 Intravascular Diastolic 80 07/07/2022 Pain Scale 0.00 07/07/2022 Weight 188.00 07/07/2022 Heart Beat 84.00 07/07/2022 BMI 32.27 07/07/2022 BSA 1.96 07/07/2022 Body Temperature 98.10 07/07/2022 Height 64.00 10/10/2022 BSA 1.92 10/10/2022 Body Temperature 98.10 10/10/2022 Heart Beat 60.00 10/10/2022 Respiratory Rate 16.00 10/10/2022 Intravascular Systolic 130 10/10/2022 Intravascular Diastolic 70 10/10/2022 Pain Scale 0.00 10/10/2022 Weight 180.80 10/10/2022 BMI 31.03 10/10/2022 Height 64.00 01/10/2023 Body Temperature 98.00 01/10/2023 Heart Beat 76.00 01/10/2023 Respiratory Rate 12.00 01/10/2023 Intravascular Systolic 122 01/10/2023 Intravascular Diastolic 70 01/10/2023 Pain Scale 0.00 01/10/2023 Weight 177.60 01/10/2023 Height 64.00 01/10/2023 BMI 30.48 01/10/2023 BSA 1.91 04/12/2023 Body Temperature 98.30 04/12/2023 Heart Beat 71.00 04/12/2023 Respiratory Rate 16.00 04/12/2023 Intravascular Systolic 129 04/12/2023 Intravascular Diastolic 78 04/12/2023 BSA 1.90 04/12/2023 Weight 175.40 04/12/2023 Height 64.00 04/12/2023 BMI 30.11 04/12/2023 Pain Scale 0.00 07/11/2023 Heart Beat 82.00 07/11/2023 Body Temperature 97.90 07/11/2023 BSA 1.90 07/11/2023 BMI 30.38 07/11/2023 Height 64.00 07/11/2023 Weight 177.00 07/11/2023 Oxygen Saturation 96.00 07/11/2023 Respiratory Rate 16.00 07/11/2023 Pain Scale 0.00 07/11/2023 Intravascular Systolic 136 07/11/2023 Intravascular Diastolic 75 10/11/2023 BSA 1.94 10/11/2023 Heart Beat 70.00 10/11/2023 Respiratory Rate 16.00 10/11/2023 Intravascular Systolic 154 10/11/2023 Intravascular Diastolic 71 10/11/2023 BMI 31.41 10/11/2023 Pain Scale 2.00 10/11/2023 Weight 183.00 10/11/2023 Height 64.00 10/11/2023 Body Temperature 97.50 01/11/2024 Body Temperature 98.00 01/11/2024 BSA 1.89 01/11/2024 BMI 29.80 01/11/2024 Height 64.00 01/11/2024 Weight 173.60 01/11/2024 Pain Scale 0.00 01/11/2024 Intravascular Systolic 140 01/11/2024 Intravascular Diastolic 82 01/11/2024 Heart Beat 76.00 01/11/2024 Respiratory Rate 16.00 04/11/2024 BSA 1.89 04/11/2024 BMI 30.07 04/11/2024 Height 64.00 04/11/2024 Weight 175.20 04/11/2024 Intravascular Systolic 117 04/11/2024 Intravascular Diastolic 70 04/11/2024 Respiratory Rate 13.00 04/11/2024 Heart Beat 66.00 04/11/2024 Body Temperature 98.20 04/11/2024 Pain Scale 0.00 07/11/2024 Body Temperature 97.80 07/11/2024 Heart Beat 71.00 07/11/2024 Intravascular Systolic 139 07/11/2024 Intravascular Diastolic 72 07/11/2024 Weight 181.00 07/11/2024 Height 64.00 07/11/2024 BSA 1.93 07/11/2024 Respiratory Rate 14.00 07/11/2024 Pain Scale 0.00 07/11/2024 BMI 31.07 10/02/2024 BMI 30.72 10/02/2024 Height 64.00 10/02/2024 Weight 179.00 10/02/2024 Pain Scale 0.00 10/02/2024 Intravascular Systolic 110 10/02/2024 Intravascular Diastolic 69 10/02/2024 Respiratory Rate 16.00 10/02/2024 Heart Beat 71.00 10/02/2024 Body Temperature 97.80 10/02/2024 BSA 1.91 Notes Section * Nurse Note for: 02-OCT-24 [facility] Nurse Note Print Location: Unknown Date/Time Printed: 10/11/2024 10:35 ([facility]) Patient: RICHI CRUZ Sex: Male : [...] mg Amount in mL: 1.5 Pharmacy dispense: [facility]: [id number] Dispense/Waste: 22.5/0 mg Given Dose/Discard: 22.5/0 mg Admin Details: Injection Location: Left-Dorsogluteal Time: 10:26 Double Checked By: Rachel Ashley RN on 10/02/2024 10:25 and Aziza Gay RN on 10/02/2024 10:25 * Nurse Note for: 11-JUL-24 [facility] Nurse Note Print Location: Unknown Date/Time Printed: 10/11/2024 10:35 ([facility]) Patient: RICHI CRUZ Sex: Male : [...] supervision throughout the treatment. Entered By Tiffanie Reenan RN on 10:17 Patient Assessment : Positive [...] Print Location: Unknown Date/Time Printed: 10/11/2024 10:35 ([facility]) Patient: RICHI CRUZ Sex: Male : [...] Pharmacy plan: Dispense/Waste: 22.5/0 mg Pharmacy dispense: [facility]: [phone] Dispense/Waste: 22.5/0 mg Given Dose/Discard: 22.5/0 mg Admin Details: Injection Location: Right-Dorsogluteal, Comments: x 1 Time: 10:15 Double Checked By: Aislinn Blair RN on 04/11/2024 10:06 and Edie Blanco RN on 04/11/2024 10:06 * Nurse Note for: 11-JAN-24 Oncology Hematology Care Nurse Note Print Location: Unknown Date/Time Printed: 10/11/2024 10:35 ([facility]) Patient: RICHI CRUZ Sex: Male : [...] Pharmacy plan: Dispense/Waste: 22.5/0 mg Pharmacy dispense: [facility]: [phone] Dispense/Waste: 22.5/0 mg Given Dose/Discard: 22.5/0 mg Admin Details: Injection Location: Right-Dorsogluteal, Comments: x 1 Time: 10:03 Double Checked By: Edie Blanco RN on 01/11/2024 10:03 and Trang Dukes RN on 01/11/2024 10:03 * Nurse Note for: 11-OCT-23 Oncology Hematology Care Nurse Note Print Location: Unknown Date/Time Printed: 10/11/2024 10:35 ([facility]) Patient: RICHI CRUZ Sex: Male : [...] Pharmacy plan: Dispense/Waste: 22.5/0 mg Pharmacy dispense: [facility]: [id number] Dispense/Waste: 22.5/0 mg Given Dose/Discard: 22.5/0 mg Admin Details: Injection Location: Right-Dorsogluteal, Comments: Injection x 1. Time: 11:30 Double Checked By: Aziza Gay RN on 10/11/2023 11:28 and Emily Luajn RN on 10/11/2023 11:30 * Nurse Note for: 11-JUL-23 Oncology Hematology Care Nurse Note Print Location: Unknown Date/Time Printed: 10/11/2024 10:35 ([facility]) Patient: RICHI CRUZ Sex: Male : [...] Pharmacy plan: Dispense/Waste: 22.5/0 mg Pharmacy dispense: [facility]: [id number] Dispense/Waste: 22.5/0 mg Given Dose/Discard: 22.5/0 mg Admin Details: Injection Location: Right-Dorsogluteal Time: 10:20 Double Checked By: Trang Dukes RN on 07/11/2023 10:05 and Edie Blanco RN on 07/11/2023 11:01 * Nurse Note for: 12-APR-23 Oncology Hematology Care Nurse Note Print Location: Unknown Date/Time Printed: 10/11/2024 10:35 ([facility]) Patient: RICHI CRUZ Sex: Male : [...] Pharmacy plan: Dispense/Waste: 22.5/0 mg Pharmacy dispense: [facility]: [id number] Dispense/Waste: 22.5/0 mg Given Dose/Discard: 22.5/0 mg Admin Details: Injection Location: Right-Dorsogluteal Time: 09:15 Double Checked By: Lily Raphael RN on 04/12/2023 09:27 and Emily Lujan RN on 04/12/2023 09:33 * Nurse Note for: 10-JAN-23 Oncology Hematology Care Nurse Note Print Location: Unknown Date/Time Printed: 10/11/2024 10:35 ([facility]) Patient: RICHI CRUZ Sex: Male : [...] Pharmacy plan: Dispense/Waste: 22.5/0 mg Pharmacy dispense: [facility]: [phone] Dispense/Waste: 22.5/0 mg Given Dose/Discard: 22.5/0 mg Admin Details: Injection Location: Right-Dorsogluteal, Comments: injection x1 Time: 11:14 Double Checked By: Denisse Harris RN on 01/10/2023 11:11 and Marlen Lee on 01/10/2023 11:18 * Nurse Note for: 10-OCT-22 Oncology Hematology Care Nurse Note Print Location: Unknown Date/Time Printed: 10/11/2024 10:35 ([facility]) Patient: RICHI CRZU Sex: Male : 1950 Date of Service: [...] Pharmacy plan: Dispense/Waste: 22.5/0 mg Pharmacy dispense: [facility]: [id number] Dispense/Waste: 22.5/0 mg Given Dose/Discard: 22.5/0 mg Admin Details: Injection Location: Right-Dorsogluteal, Comments: x 1 IM Time: :23 Checked By: Edie Blanco RN on 10/10/2022 10:25 * Nurse Note for: 07-JUL-22 Oncology Hematology Care Nurse Note Print Location: Unknown Date/Time Printed: 10/11/2024 10:35 ([facility]) Patient: RICHI CRUZ Sex: Male : [...] Pharmacy plan: Dispense/Waste: 22.5/0 mg Pharmacy dispense: [facility]: [phone] Dispense/Waste: 22.5/0 mg Given Dose/Discard: 22.5/0 mg Admin Details: Injection Location: Right-Dorsogluteal, Comments: Injection x 1. Time: 10:27 Double Checked By: Emily Lujan RN on 07/07/2022 10:49 and Aziza Gay RN on 07/07/2022 12:46 * Nurse Note for: 07-APR-22 Oncology Hematology Care Nurse Note Print Location: Unknown Date/Time Printed: 10/11/2024 10:35 ([facility]) Patient: RICHI CRUZ Sex: Male : [...] . Entered By Denisse Harris RN on 09:41 Medication Administration : Incident to: Shayne Castellanos MD Leuprolide D1 Q3M Hormone Therapy Leuprolide IM, 22.5 mg intramuscularly every 3 months, Allow Substitution GIVEN: 22.5 mg Pharmacy plan: Dispense/Waste: 22.5/0 mg Pharmacy dispense: [facility]: [id number] Dispense/Waste: 22.5/0 mg Given Dose/Discard: 22.5/0 mg Admin Details: Injection Location: Left-Dorsogluteal Time: 09:43 Double Checked By: Denisse Coleman RN on 04/07/2022 09:41 and Emily Lujan RN on 04/07/2022 09:49 * Nurse Note for: 05-JAN-22 Oncology Hematology Care Nurse Note Print Location: Unknown Date/Time Printed: 10/11/2024 10:35 ([facility]) Patient: RICHI RCUZ Sex: Male : 1950 Date of Service: [...] supervision throughout the treatment. Entered By Edie Eaglin RN on 15:07 Patient Assessment : Positive [...] Pharmacy plan: Dispense/Waste: 22.5/0 mg Pharmacy dispense: [facility]: [id number] Dispense/Waste: 22.5/0 mg Given Dose/Discard: 22.5/0 mg Admin Details: Injection Location: Right-Dorsogluteal, Comments: x 1 Time: 11:01 Double Checked By: Edie Blanco RN on 01/05/2022 15:07 and Nikole Ornelas RN on 01/05/2022 16:03 * Nurse Note for: 06-OCT-21 Oncology Hematology Care Nurse Note Print Location: Unknown Date/Time Printed: 10/11/2024 10:35 ([facility]) Patient: RICHI CRUZ Sex: Male : [...] Pharmacy plan: Dispense/Waste: 22.5/0 mg Pharmacy dispense: [facility]: [id number] Dispense/Waste: 22.5/0 mg Given Dose/Discard: 22.5/0 mg Admin Details: Injection Location: Right-Dorsogluteal, Comments: x1 Time: 11:09 Double Checked By: Emily Lujan RN on 10/06/2021 13:17 and Isaura Hunter RN on 10/06/2021 13:18 * Nurse Note for: 06-JUL-21 Oncology Hematology Care Nurse Note Print Location: Unknown Date/Time Printed: 10/11/2024 10:35 ([facility]) Patient: RICHI CRUZ Sex: Male : [...] Pharmacy plan: Dispense/Waste: 22.5/0 mg Pharmacy dispense: [facility]: [id number] Dispense/Waste: 22.5/0 mg Given Dose/Discard: 22.5/0 mg Admin Details: Injection Location: Right-Dorsogluteal, Comments: 1 injection Time: 11:08 Checked By: Isaura Hunter RN on 07/06/2021 16:19 * Nurse Note for: 08-APR-21 Oncology Hematology Care Nurse Note Print Location: Unknown Date/Time Printed: 10/11/2024 10:35 ([facility]) Patient: RICHI CRUZ Sex: Male : [...] Pharmacy plan: Dispense/Waste: 22.5/0 mg Pharmacy dispense: [facility]: [id number] Dispense/Waste: 22.5/0 mg Given Dose/Discard: 22.5/0 mg Admin Details: Injection Location: Left-Dorsogluteal, Comments: X1 Time: 10:13 Checked By: Royce Manzanares RN on 04/08/2021 10:13 * Nurse Note for: 07-JAN-21 Oncology Hematology Care Nurse Note Print Location: Unknown Date/Time Printed: 10/11/2024 10:35 ([facility]) Patient: RICHI CRUZ Sex: Male : [...] Pharmacy plan: Dispense/Waste: 22.5/0 mg Pharmacy dispense: [facility]: [id number] Dispense/Waste: 22.5/0 mg Given Dose/Discard: 22.5/0 mg Admin Details: Injection Location: Right-Dorsogluteal Time: 11:30 Checked By: Tiffanie Draper RN on 01/07/2021 12:31 * Nurse Note for: 08-OCT-20 Oncology Hematology Care Nurse Note Print Location: Unknown Date/Time Printed: 10/11/2024 10:35 ([facility]) Patient: RICHI CRUZ Sex: Male : [...] plan: Dispense/Waste: 22.5/0 mg Pharmacy dispense: [facility]: [id number] Dispense/Waste: 22.5/0 mg Given Dose/Discard: 22.5/0 mg Admin Details: Injection Location: Left-Dorsogluteal Time: 11:22 * Nurse Note for: 09-JUL-20 Oncology Hematology Care Nurse Note Print Location: Unknown Date/Time Printed: 10/11/2024 10:35 ([facility]) Patient: RICHI CRUZ Sex: Male : [...] plan: Dispense/Waste: 22.5/0 mg Pharmacy dispense: [facility]: [id number] Dispense/Waste: 22.5/0 mg Given Dose/Discard: 22.5/0 mg Admin Details: Injection Location: Right-Dorsogluteal, Comments: x1 injection Time: 10:50 * Nurse Note for: 09-APR-20 Oncology Hematology Care Nurse Note Print Location: Unknown Date/Time Printed: 10/11/2024 10:35 ([facility]) Patient: RICHI CRUZ Sex: Male : [...] Pharmacy plan: Dispense/Waste: 22.5/0 mg Pharmacy dispense: [facility]: [id number] Dispense/Waste: 22.5/0 mg Given Dose/Discard: 22.5/0 mg Admin Details: Injection Location: Right-Hip UOQ, Comments: x1 Time: 10:40 Double Checked By: Emily Lujan RN on 04/09/2020 10:40 and Isaura Keenan RN on 04/09/2020 10:41 * Nurse Note for: 09-JAN-20 Oncology Hematology Care Nurse Note Print Location: Unknown Date/Time Printed: 10/11/2024 10:35 [facility] Patient: RICHI CRUZ Sex: Male : [...] Pharmacy plan: Dispense/Waste: 22.5/0 mg Pharmacy dispense: [facility]: [phone] Dispense/Waste: 22.5/0 mg Given Dose/Discard: 22.5/0 mg Admin Details: Injection Location: Right-Hip UOQ, Comments: x1 Time: 10:36 Double Checked By: Emily Lujan RN on 01/09/2020 10:36 and Isaura Keenan RN on 01/09/2020 10:37 * Nurse Note for: 10-OCT-19 Oncology Hematology Care Nurse Note Print Location: Unknown Date/Time Printed: 10/11/2024 10:35 ([facility]) Patient: RICHI CRUZ Sex: Male : [...] Pharmacy plan: Dispense/Waste: 22.5/0 mg Pharmacy dispense: [facility]: [id number] Dispense/Waste: 22.5/0 mg Given Dose/Discard: 22.5/0 mg Admin Details: Injection Location: Left-Dorsogluteal, Comments: x1 Time: 11:04 Double Checked By: Emily Lujan RN on 10/10/2019 11:04 and Isaura Keenan RN on 10/10/2019 11:04
--- NOTE | 2024-10-11 10:37 | CT_ITS ---
FINAL REPORT TECHNIQUE: Axial images were obtained of the cervical spine by computed tomography. Coronal and sagittal reconstruction process performed. This study was performed with techniques to keep radiation doses as low as reasonably achievable (ALARA). Individualized dose reduction techniques using automated exposure control or adjustment of mA and/or kV according to the patient''s size were employed. CLINICAL HISTORY: Mowing incident, midline c-spine pain COMPARISON: None FINDINGS: There is moderate disc space narrowing at C4-5, C5-6, and C6-7. Vertebrae are normal in height. There is no malalignment. Facets are properly aligned. C2-3: Unremarkable. C3-4: Asymmetric left facet hypertrophy. Moderate to high-grade left neural foraminal narrowing. C4-5: Mild endplate hypertrophy. Bilateral facet hypertrophy. Moderate bilateral neural foraminal narrowing. C5-6: Mild endplate hypertrophy. Mild bilateral neural foraminal narrowing. C6-7: Moderate endplate hypertrophy. Moderate bilateral neural foraminal narrowing. C7-T1: Unremarkable. IMPRESSION: Hypertrophic changes at C4-5, C5-6, and C6-7 with bilateral neural foraminal narrowing most evident at C4-5. Reviewed, Interpreted and Dictated by Timothy Sousa MD Transcribed by Izabela Lopez Authenticated and [facility]
--- OUTSIDE RECORDS SUMMARY | 2024-10-11 10:37 | XMS_ITS | Clinical Summary ---
Author Organization [facility] [place] Address [address] [place] [address] Phone Care Team Providers Care Building Supervisor Name Role Phone Mary Anne Parekh MD, Harold Primary Care Provider + Shayne Castellanos MD Unavailable [phone] Allergies No known active allergies Medications oxycodone 5 mg Take 5 mg by mouth every 6 hours. Active venlafaxine (EFFEXOR) 75 mg tablet Take 75 mg by mouth 2 times daily. Active esomeprazole (NEXIUM) 40 mg capsule Take by mouth daily. Active CIMETIDINE (TAGAMET ORAL) Take 150 mg by mouth every 12 hours. Active polyethylene glycol (GLYCOLAX, MIRALAX) 17 gram Oral Powder in Packet Take 17 g by mouth 2 times daily. 14 Each 1 Active amLODIPine (NORVASC) 5 mg Oral Tablet Take 5 mg by mouth daily. Active aspirin 81 mg Oral Tablet, Chewable Take 81 mg by mouth daily. Active clopidogreL (PLAVIX) 75 mg Oral Tablet Take 75 mg by mouth daily. Active fenofibrate (TRICOR) 145 mg Oral Tablet Take 145 mg by mouth daily. Active gabapentin (NEURONTIN) 600 mg Oral Tablet Take 600 mg by mouth 3 times daily. Active valsartan (DIOVAN) 160 mg Oral Tablet Take 160 mg by mouth daily. Active naproxen (NAPROSYN) 500 mg Oral Tablet Take 500 mg by mouth daily. Active oxyCODONE (ROXICODONE) 5 mg Oral Tablet Take 1 Tablet by mouth every 4 hours as needed for Major Surgery/Trauma (G89.18). 5 Tablet 5 Active Additional Information Patient not taking.Reason: Therapy Completed, Reported on 05/13/2024 oxyCODONE (ROXICODONE) 5 mg Oral Tablet Take 1 Tablet by mouth every 4 hours as needed for Major Surgery/Trauma (G89.18). 15 Tablet 5 Active Active Problems Problem Noted Date Diagnosed Date Dupuytren's contracture 05/10/2024 Carpal tunnel syndrome of right wrist 04/05/2024 Secondary malignancy of bone of lower extremity 06/23/2015 Pulmonary nodule 06/23/2015 Depression 06/23/2015 Adenocarcinoma of prostate 08/07/2012 Immunizations Immunization Administration Dates Next Due Influenza Seasonal Injectable PF 03/29/2013 Pneumococcal Polysaccharide 23 Valent 03/29/2013 Tdap 10/24/2015 Surgical History Surgery Date Site/Laterality Comments CHOLECYSTECTOMY 2002 PROSTATECTOMY 08/07/2012 N/A Surgeon: Claude Meneses MD; Location: [facility]; Service: PENILE PROSTHESIS PLACEMENT 03/29/2013 CORONARY ANGIOPLASTY WITH STENT PLACEMENT 12/04/2022 - 01/03/2023 [place], [place]; Pt states he does have 1 other blockage that needs a stent but they are monitoring it for now CARPAL TUNNEL RELEASE 04/30/2024 Hand/Wrist/Right Right Endoscopic Carpal Tunnel Release; Surgeon: Jhon Beltre MD; Location: [facility]; Service: Orthopedics HAND SURGERY 05/21/2024 Hand/Wrist/Right right hand dupuytrens fasciectomy; Surgeon: Jhon Beltre MD; Location: [facility]; Service: Orthopedics Medical History Medical History Date Comments GERD (gastroesophageal reflux disease) Depression Chronic back pain Arthritis Prostate disorder Cancer associated with transplanted organ (HCC) Prostate cancer (HCC) Essential (primary) hypertension 2023 Social History Tobacco Use Types Packs/Day Years Used Date Smoking Tobacco: Never Smokeless Tobacco: Never Tobacco Cessation:Counseling Given: Not Answered Alcohol Use Standard Drinks/Week Comments Yes 28 (1 standard drink = 0.6 oz pu re alcohol) once in a while Sex and Gender Information Value Date Recorded Sex Assigned at Not on file Legal Sex Male 10:46 PM EDT Gender Identity Not on file Sexual Orientation Not on file Obstetrics History Last Filed Vital Signs Vital Sign Reading Time Taken Comments Blood Pressure 101/51 05/21/2024 12:25 PM EDT Pulse 75 05/21/2024 12:25 PM EDT Temperature 36.2 C (97.2 F) 05/21/2024 12:15 PM EDT Respiratory Rate 15 05/21/2024 12:25 PM EDT Oxygen Saturation 93% 05/21/2024 12:25 PM EDT Inhaled Oxygen Concentration - - Weight 79.8 kg (176 lb) 05/31/2024 9:18 AM EDT Height 165.1 cm (5' 5 ) 05/31/2024 9:18 AM EDT Body Mass Index 29.29 05/31/2024 9:18 AM EDT Plan of Treatment Health Maintenance Due Date Last Done Comments Wellness Exam Medicare [birth year]02/1953 Hepatitis C Screening 06/02/1969 Cologuard 06/02/1996 FIT 06/02/1996 Sigmoidoscopy 06/02/1996 Virtual Colonography 06/02/1996 Colon Cancer Screening 04/21/2016 Colonoscopy 04/21/2016 04/21/2011, 10/11/2010 Pneumococcal Vaccine 50+ (3 of 3 - PCV) 02/05/2022 02/05/2021, 07/19/2016, 03/29/2013 COVID-19 Vaccine ( season) 2023 02/11/2022, 08/21/2021, 03/23/2021, Additional history exists Influenza Vaccine (#1) 2024 , 03/31/2023, 02/05/2021, Additional history exists DTaP/TDaP/Td (2 - Td or Tdap) 10/23/2025 10/24/2015 Zoster Completed 05/24/2021, 02/23/2021 Hepatitis B Vaccine Aged Out No longe r eligible based on patient's age to complete this topic Meningococcal B Vaccine Aged Out No l onger eligible based on patient's age to complete this topic Procedures Procedure Name Priority Date/Time Associated Diagnosis Comments GMED COLONOSCOPY Routine 04/21/2011 12:0 0 AM EST from Last 3 Months or Most Recently Relevant to Health Maintenance Results * GMED COLONOSCOPY (04/21/2011 12:00 AM EST) 04/21/2011 Impressions JANIYANADIRA - 04/21/2011 8:10 AM EST Polyp at 17cm in the distal sigmoid colon and proximal rectum (polypectomy) Diverticulosis of the sigmoid colon Otherwise normal colonoscopy to cecum Narrative VANESSAQUE - 04/21/2011 8:10 AM EST Performing Provider: Charli Ramos M.D. Referring Provider: Logan North MD us Charli Ramos MD GI PROCEDURE ORDERABLES [place] l Result Performing Organization Address City/State/[facility] Co de Phone Number [address] [address] from Last 3 Months or Most Recently Relevant to Health Maintenance Insurance MEDICARE PPO MR [employer] MEDICARE PPO MR Advance Directives For more information, please contact: [phone] * Full Code (Latest Code Status on File) Date Activated Date Inactivated Comments 08/07/2012 4:24 PM 08/08/2012 4:41 PM Care Teams Building Supervisor Relationship Specialty Start Date End Date Logan North MD [address] [place] [address] PCP - General 09/16/10 Shayne Castellanos MD [address] [place] [address] PCP - Hematology/Oncology Internal Medicine 06/17/15
--- OUTSIDE RECORDS SUMMARY | 2024-10-11 10:37 | XMS_ITS ---
Author Name Interface, [id number] lity Address [address] [place] [address] [facility] Address [address] [place] [address] Allergies and Adverse Reactions Medication/Group Name Reaction [...] 15 MIN 10/11/2023 APPOINTMENT PORT FLUSH 15 DE N 10/11/2023 APPOINTMENT LAB 15 MIN 10/11/2023 [...] WBC 10*3/u L 4.2 9.1 4.6 FINAL [facility] ([facility]), [address], [address] [facility] [address] 10/08 CBC w/ auto diff Alan # (ANC) 10*3/u L 1.78 5.38 3.30 FINAL [facility] ([facility]), [address], [address] [facility] [address] 10/08 CBC w/ auto diff LY # 10*3/u L 1.32 3.57 0.66 Low FINAL [facility] ([facility]), [address], [address] [facility] [address] 10/08 CBC w/ auto diff MO # 10*3/u L 0.3 0.82 0.47 FINAL [facility] ([facility]), [address], [address] [place] [address] 10/08 CBC w/ auto diff EO # 10*3/u lL 0.04 0.54 0.18 FINAL [facility] ([facility]), [address], [address] [place] [address] 10/08 CBC w/ auto diff BA # 10*3/u L 0.01 0.08 0.03 FINAL [facility] ([facility]), [address], [address] [place] [address] 10/08 CBC w/ auto diff Alan % % 34.0 67.9 71.2 High FINAL [facility] (T), [address], [address] [place] [address] 10/08 CBC w/ auto diff LY % % 21.8 53.1 14.2 Low FINAL [facility] ([facility]), [address], [address] [place] [address] 10/08 CBC w/ auto diff MO % % 5.3 12.2 10.1 FINAL [facility] ([facility]), [address], [address] [place] [address] 10/08 CBC w/ auto diff EO % % 0.8 7.0 3.9 FINAL [facility] ([facility]), [address], [address] [place] [address] 10/08 CBC w/ auto diff BA % % 0.2 1.2 0.6 FINAL [facility] ([facility]), [address], [address] [place] [address] 10/08 CBC w/ auto diff RBC 10*6/u L 4.63 6.08 4.24 Low FINAL [facility] ([facility]), [address], [address] [place] [address] 10/08 CBC w/ auto diff HGB g/dL 13.7 17.5 12.3 Low FINAL [facility] (T), [address], [address] [place], [place] [id number] 10/08 CBC w/ auto diff HCT % 40.1 51.0 36.9 Low FINAL [facility] ([facility]), [address], [address] [place], [place] [address] 10/08 CBC w/ auto diff MCV fL 79.0 92.2 87.0 FINAL [facility] ([facility]), [address], [address] [place] [address] 10/08 CBC w/ auto diff MCH pg 25.7 32.2 29.0 FINAL [facility] ([facility]), [address], [address] [place] [address] 10/08 CBC w/ auto diff MCHC g/dL 32.3 36.5 33.3 FINAL [facility] ([facility]), [address], [address] [place] [address] 10/08 CBC w/ auto diff RDW-C V, % % 11.6 14.4 14.4 FINAL [facility] ([facility]), [address], [address] [place], [place] [id number] 10/08 CBC w/ auto diff PLT 10*3/u L 163.0 337.0 175.0 FINAL [facility] ([facility]), [address], [address] [place], [place] [address] 10/08 CMP - Core Lab Sodiu m mmol/L 136.0 145.0 140 FINAL [facility] [place] ([facility]), [facility] [address] 10/08 CMP - Core Lab Potas sium mmol/L 3.5 5.1 4.2 FINAL [facility] [place] ([facility]), [facility] [address] 10/08 CMP - Core Lab Chlor naif mmol/L 98.0 107.0 106 FINAL [facility] ([facility]), [address] [place] [address] 10/08 CMP - Core Lab CO2 mmol/L 20.0 31.0 25.7 FINAL [facility] ([facility]), [address] [place] [address] [place] [address] 10/08 CMP - Core Lab Anion gap, mmol/ L mmol/L 4.0 15.0 8.3 FINAL [facility] ([facility]), [address] [place] [address] [place] [address] 10/08 CMP - Core Lab BUN mg/dL 9.0 23.0 27 High FINAL [facility] ([facility]), [address] [place] [address] 10/08 CMP - Core Lab BUN/C reati nine ratio 0.0 25.0 28.1 High FINAL [facility] ([facility]), [address] [place] [address] 10/08 CMP - Core Lab Creat inine mg/dL 0.6 1.1 0.96 FINAL [facility] ([facility]), [address] [place] [address] 10/08 CMP - Core Lab GFR non-A frica n Ameri can, estim ated mL/min /1.73m >60.0 FINAL [facility] ([facility]), [address] [place] [address] 10/08 CMP - Core Lab GFR Afric an Ameri can, estim ated mL/min /1.73m >60.0 FINAL [facility] ([facility]), [address] [place] [address] [place] [address] 10/08 CMP - Core Lab Gluco se mg/dL 74.0 106.0 105 FINAL [facility] ([facility]), [address] [place] [address] [place] [address] 10/08 CMP - Core Lab Calci um mg/dL 8.7 10.6 10.0 FINAL [facility] ([facility]), [address] [place] [address] [place] [address] 10/08 CMP - Core Lab Album in g/dL 3.4 5.0 4.0 FINAL [facility] ([facility]), [address] [place] [address] 10/08 CMP - Core Lab Total prote in g/dL 5.7 8.2 6.7 FINAL [facility] ([facility]), [address] [place] [address] 10/08 CMP - Core Lab A/G ratio 1.0 2.0 1.5 FINAL [facility] ([facility]), [address] [place] [address] 10/08 CMP - Core Lab Alkal ine phosp hatas e U/L 46.0 116.0 47 FINAL [facility] ([facility]), [address] [place] [address] 10/08 CMP - Core Lab ALT/S GPT U/L 10.0 49.0 19 FINAL [facility] ([facility]), [address] [place] [address] 10/08 CMP - Core Lab AST/S GOT U/L 0.0 34.0 23 FINAL [facility] ([facility]), [address] [place] [address] 10/08 CMP - Core Lab Bilir ubin, total mg/dL 0.3 1.2 0.4 FINAL [facility] ([facility]), [address] [place] [address] [place] [address] 10/08 PSA, total ng/mL 0.04 FINAL [facility] ([facility]), [address] [place] [address] [place] [address] 01/07 CBC w/ auto diff WBC 10*3/u L 4.2 9.1 5.0 FINAL Supriya barth [facility] [address], [address] [place] [address] 01/07 CBC w/ auto diff Alan # (ANC) 10*3/u L 1.78 5.38 3.57 FINAL Supriya Wild e [facility] [address], [address] [facility] [address] 01/07 CBC w/ auto diff LY # 10*3/u L 1.32 3.57 0.83 Low FINAL Supriya Delisaespi e [facility] ([facility]), [address], [address] [place] [address] 01/07 CBC w/ auto diff MO # 10*3/u L 0.3 0.82 0.42 FINAL Supriya Gillespi e [facility]), [address], [address] [place] [address] 01/07 CBC w/ auto diff EO # 10*3/u lL 0.04 0.54 0.17 FINAL Supriya Herculesespi e [facility] ([facility]), [address], [address] [place] [address] 01/07 CBC w/ auto diff BA # 10*3/u L 0.01 0.08 0.02 FINAL Supriya Verdini e [facility] (T), [address], [address] [place], [place] [id number] 01/07 CBC w/ auto diff Alan % % 34.0 67.9 71.2 High FINAL Supriya Herculesespi e [facility] (T), [address], [address] [place], [place] [id number] 01/07 CBC w/ auto diff LY % % 21.8 53.1 16.6 Low FINAL Supriya Gillespi e [facility] (T), [address], [address] [place] [address] 01/07 CBC w/ auto diff MO % % 5.3 12.2 8.4 FINAL Supriya Gillespi e [facility] ([facility]), [address], [address] [place], [place] [id number] 01/07 CBC w/ auto diff EO % % 0.8 7.0 3.4 FINAL Supriya Gillespi e [facility] (T), [address], [address] [place], [place] [id number] 01/07 CBC w/ auto diff BA % % 0.2 1.2 0.4 FINAL Supriya barth [facility] ([facility]), [address], [address] [place], [place] [id number] 01/07 CBC w/ auto diff RBC 10*6/u L 4.63 6.08 4.12 Low FINAL Supriya Wild e [facility] (T), [address], [address] [place] [address] 01/07 CBC w/ auto diff HGB g/dL 13.7 17.5 12.0 Low FINAL Supriya barth [facility]), [address], [address] [place] [address] 01/07 CBC w/ auto diff HCT % 40.1 51.0 36.4 Low FINAL Supriya Wild e [facility] (T), [address], [address] [place] [address] 01/07 CBC w/ auto diff MCV fL 79.0 92.2 88.3 FINAL Supriya barth [facility] (T), [address], [address] [place] [address] 01/07 CBC w/ auto diff MCH pg 25.7 32.2 29.1 FINAL Supriya Wild e [facility] (T), [address], [address] [place] [address] 01/07 CBC w/ auto diff MCHC g/dL 32.3 36.5 33.0 FINAL Supriya barth [facility] (T), [address], [address] [place] [address] 01/07 CBC w/ auto diff RDW-C V, % % 11.6 14.4 14.3 FINAL Supriya Wild e [facility] (T), [address], [address] [place] [address] 01/07 CBC w/ auto diff PLT 10*3/u L 163.0 337.0 162.0 Low FINAL Supriya Wild e [facility] ([facility]), [address], [address] [facility] [address] 01/07 CMP - Core Lab Sodiu m mmol/L 136.0 145.0 138 FINAL Supriya barth [facility] [place] ([facility]), [address] [place] [address] [place] [address] 01/07 CMP - Core Lab Potas sium mmol/L 3.5 5.1 5.1 FINAL Supriya barth [facility] [place] ([facility]), [address] [place] [address] [place] [address] 01/07 CMP - Core Lab Chlor naif mmol/L 98.0 107.0 103 FINAL Supriya barth [facility] [place] ([facility]), [address] [place] [address] [place] [address] 01/07 CMP - Core Lab CO2 mmol/L 20.0 31.0 21.9 FINAL Supriya barth [facility] [place] ([facility]), [address] [place] [address] [place] [address] 01/07 CMP - Core Lab Anion gap, mmol/ L mmol/L 4.0 15.0 13.1 FINAL Supriya barth [facility] [place] ([facility]), [address] [place] [address] [place] [address] 01/07 CMP - Core Lab BUN mg/dL 9.0 23.0 14 FINAL Supriya barth [facility] [place] ([facility]), [address] [place] [address] [place] [address] 01/07 CMP - Core Lab BUN/C reati nine ratio 0.0 25.0 14.1 FINAL Supriya barth [facility] [place] ([facility]), [address] [place] [address] [place] [address] 01/07 CMP - Core Lab Creat inine mg/dL 0.6 1.1 0.99 FINAL Supriya barth [facility] [place] ([facility]), [address] [place] [address] [place] [address] 01/07 CMP - Core Lab GFR non-A frica n Ameri can, estim ated mL/min /1.73m >60.0 FINAL Supriya barth [facility] [place] ([facility]), [address] [place] [address] [place] [address] 01/07 CMP - Core Lab GFR Afric an Ameri can, estim ated mL/min /1.73m >60.0 FINAL Supriya barth [facility] [place] ([facility]), [address] [place] [address] [place] [address] 01/07 CMP - Core Lab Gluco se mg/dL 74.0 106.0 103 FINAL Supriya barth [facility] [place] ([facility]), [address] [place] [address] [place] [address] 01/07 CMP - Core Lab Calci um mg/dL 8.7 10.6 9.7 FINAL Supriya barth [facility] [place] ([facility]), [address] [place] [address] [place] [address] 01/07 CMP - Core Lab Album in g/dL 3.4 5.0 4.1 FINAL Supriya barth [facility] [place] ([facility]), [address] [place] [address] [place] [address] 01/07 CMP - Core Lab Total prote in g/dL 5.7 8.2 7.1 FINAL Supriya barth [facility] [place] ([facility]), [address] [place] [address] [place] [address] 01/07 CMP - Core Lab A/G ratio 1.0 2.0 1.4 FINAL Supriya barth [facility] [place] ([facility]), [address] [place] [address] [place] [address] 01/07 CMP - Core Lab Alkal ine phosp hatas e U/L 46.0 116.0 46 FINAL Supriya barth [facility] [place] ([facility]), [address] [place] [address] [place] [address] 01/07 CMP - Core Lab ALT/S GPT U/L 10.0 49.0 35 FINAL Supriya barth [facility] [place] ([facility]), [address] [place] [address] [place] [address] 01/07 CMP - Core Lab AST/S GOT U/L 0.0 34.0 57 High FINAL Supriya barth [facility] [place] ([facility]), [address] [facility] [address] 01/07 CMP - Core Lab Bilir ubin, total mg/dL 0.3 1.2 0.4 FINAL [facility] [place] ([facility]), [address] [facility] [address] 01/07 PSA, total ng/mL 0.04 FINAL [facility] [place] ([facility]), [address] [place] [address] 04/08 PSA, total ng/mL 0.04 FINAL [facility] [place] ([facility]), [facility] [address] 04/08 CBC w/ auto diff WBC 10*3/u L 4.2 9.1 4.8 FINAL [facility] ([facility]), [address], [address] [place] [address] 04/08 CBC w/ auto diff Alan # (ANC) 10*3/u L 1.78 5.38 3.23 FINAL [facility] ([facility]), [address], [address] [place] [address] 04/08 CBC w/ auto diff LY # 10*3/u L 1.32 3.57 0.86 Low FINAL [facility] ([facility]), [address], [address] [place] [address] 04/08 CBC w/ auto diff MO # 10*3/u L 0.3 0.82 0.48 FINAL [facility] ([facility]), [address], [address] [place] [address] 04/08 CBC w/ auto diff EO # 10*3/u lL 0.04 0.54 0.20 FINAL [facility] ([facility]), [address], [address] [place] [address] 04/08 CBC w/ auto diff BA # 10*3/u L 0.01 0.08 0.04 FINAL [facility] ([facility]), [address], [address] [place] [address] 04/08 CBC w/ auto diff Alan % % 34.0 67.9 67.1 FINAL [facility] ([facility]), [address], [address] [place] [address] 04/08 CBC w/ auto diff LY % % 21.8 53.1 17.9 Low FINAL [facility] ([facility]), [address], [address] [place] [address] 04/08 CBC w/ auto diff MO % % 5.3 12.2 10.0 FINAL [facility] (T), [address], [address] [place] [address] 04/08 CBC w/ auto diff EO % % 0.8 7.0 4.2 FINAL [facility] (T), [address], [address] [place] [address] 04/08 CBC w/ auto diff BA % % 0.2 1.2 0.8 FINAL [facility] (T), [address], [address] [place] [address] 04/08 CBC w/ auto diff RBC 10*6/u L 4.63 6.08 4.22 Low FINAL [facility] (T), [address], [address] [place] [address] 04/08 CBC w/ auto diff HGB g/dL 13.7 17.5 12.3 Low FINAL [facility] (T), [address], [address] [place] [address] 04/08 CBC w/ auto diff HCT % 40.1 51.0 36.7 Low FINAL [facility] (T), [address], [address] [place] [address] 04/08 CBC w/ auto diff MCV fL 79.0 92.2 87.0 FINAL [facility] (T), [address], [address] [place] [address] 04/08 CBC w/ auto diff MCH pg 25.7 32.2 29.1 FINAL [facility] ([facility]), [address], [address] [facility] [address] 04/08 CBC w/ auto diff MCHC g/dL 32.3 36.5 33.5 FINAL [facility] (T), [address], [address] [facility] [address] 04/08 CBC w/ auto diff RDW-C V, % % 11.6 14.4 13.8 FINAL [facility] ([facility]), [address], [address] [facility] [address] 04/08 CBC w/ auto diff PLT 10*3/u L 163.0 337.0 174.0 FINAL [facility] (T), [address], [address] [facility] [address] 04/08 CMP - Core Lab Sodiu m mmol/L 136.0 145.0 141 FINAL [facility] [place] ([facility]), [address] [place] [address] 04/08 CMP - Core Lab Potas sium mmol/L 3.5 5.1 4.0 FINAL [facility] ([facility]), [address] [place] [address] 04/08 CMP - Core Lab Chlor naif mmol/L 98.0 107.0 108 High FINAL [facility] ([facility]), [address] [place] [address] 04/08 CMP - Core Lab CO2 mmol/L 20.0 31.0 23.4 FINAL [facility] ([facility]), [address] [place] [address] 04/08 CMP - Core Lab Anion gap, mmol/ L mmol/L 4.0 15.0 9.6 FINAL [facility] ([facility]), [address] [place] [address] [place] [address] 04/08 CMP - Core Lab BUN mg/dL 9.0 23.0 19 FINAL [facility] ([facility]), [address] [place] [address] 04/08 CMP - Core Lab BUN/C reati nine ratio 0.0 25.0 22.1 FINAL [facility] ([facility]), [address] [place] [address] 04/08 CMP - Core Lab Creat inine mg/dL 0.6 1.1 0.86 FINAL [facility] ([facility]), [address] [place] [address] 04/08 CMP - Core Lab GFR non-A frica n Ameri can, estim ated mL/min /1.73m >60.0 FINAL [facility] ([facility]), [address] [place], [place] [id number] 04/08 CMP - Core Lab GFR Afric an Ameri can, estim ated mL/min /1.73m >60.0 FINAL [facility] ([facility]), [address] [place] [address] 04/08 CMP - Core Lab Gluco se mg/dL 74.0 106.0 122 High FINAL [facility] ([facility]), [address] [place] [address] 04/08 CMP - Core Lab Calci um mg/dL 8.7 10.6 9.6 FINAL [facility] ([facility]), [address] [place] [address] 04/08 CMP - Core Lab Album in g/dL 3.4 5.0 3.9 FINAL [facility] ([facility]), [address] [place] [address] 04/08 CMP - Core Lab Total prote in g/dL 5.7 8.2 6.5 FINAL [facility] ([facility]), [address] [place] [address] 04/08 CMP - Core Lab A/G ratio 1.0 2.0 1.5 FINAL [facility] ([facility]), [address] [place] [address] 04/08 CMP - Core Lab Alkal ine phosp hatas e U/L 46.0 116.0 45 Low FINAL [facility] ([facility]), [address] [place] [address] [place] [address] 04/08 CMP - Core Lab ALT/S GPT U/L 10.0 49.0 24 FINAL [facility] ([facility]), [address] [place] [address] [place] [address] 04/08 CMP - Core Lab AST/S GOT U/L 0.0 34.0 26 FINAL [facility] ([facility]), [address] [place] [address] [place] [address] 04/08 CMP - Core Lab Bilir ubin, total mg/dL 0.3 1.2 0.4 FINAL [facility] ([facility]), [address] [place] [address] [place] [address] 07/06 CMP - Core Lab Sodiu m mmol/L 136.0 145.0 141 [facility]), [address] [place] [address] [place] [address] 07/06 CMP - Core Lab Potas sium mmol/L 3.5 5.1 4.1 [facility]), [address] [place] [address] [place] [address] 07/06 CMP - Core Lab Chlor naif mmol/L 98.0 107.0 105 [facility]), [address] [place] [address] [place] [address] 07/06 CMP - Core Lab CO2 mmol/L 20.0 31.0 27.1 [facility]), [address] [place] [address] [place] [address] 07/06 CMP - Core Lab Anion gap, mmol/ L mmol/L 4.0 15.0 8.9 FINAL Milvia [facility] ([facility]), [address] [place] [address] [place] [address] 07/06 CMP - Core Lab BUN mg/dL 9.0 23.0 13 [facility]), [address] [place] [address] [place] [address] 07/06 CMP - Core Lab BUN/C reati nine ratio 0.0 25.0 13.8 FINAL [facility] [place] ([facility]), [address] [place] [address] 07/06 CMP - Core Lab Creat inine mg/dL 0.6 1.1 0.94 FINAL [facility] [place] ([facility]), [address] [place] [address] 07/06 CMP - Core Lab GFR non-A frica n Ameri can, estim ated mL/min /1.73m >60.0 FINAL Milvia [facility] [place] ([facility]), [address] [place], [place] [id number] 07/06 CMP - Core Lab GFR Afric an Ameri can, estim ated mL/min /1.73m >60.0 FINAL [facility] [place] ([facility]), [address] [place] [address] 07/06 CMP - Core Lab Gluco se mg/dL 74.0 106.0 91 FINAL [facility] [place] ([facility]), [address] [place] [address] 07/06 CMP - Core Lab Calci um mg/dL 8.7 10.6 10.3 FINAL [facility] [place] ([facility]), [address] [place], [place] [id number] 07/06 CMP - Core Lab Album in g/dL 3.4 5.0 4.0 FINAL Milvia Cezaring [facility] [place] ([facility]), [address] [place] [address] 07/06 CMP - Core Lab Total prote in g/dL 5.7 8.2 6.8 FINAL Milvia Liming [facility] [place] ([facility]), [address] [place] [address] 07/06 CMP - Core Lab A/G ratio 1.0 2.0 1.4 FINAL [facility] [place] ([facility]), [address] [place] [address] 07/06 CMP - Core Lab Alkal ine phosp hatas e U/L 46.0 116.0 48 FINAL Milvia Robbing [facility] [place] ([facility]), [address] [facility] [address] 07/06 CMP - Core Lab ALT/S GPT U/L 10.0 49.0 24 FINAL Milvia Robbing [facility] [place] ([facility]), [facility] [place] [address] 07/06 CMP - Core Lab AST/S GOT U/L 0.0 34.0 23 [facility] [place] [facility] [address] 07/06 CMP - Core Lab Bilir ubin, total mg/dL 0.3 1.2 0.5 [facility]AL [facility] [place] ([facility]), [facility] [address] 07/06 CBC w/ auto diff LY # 10*3/u L 1.32 3.57 1.07 Low FINAL Milvia Robbing [facility] ([facility]), [address], [address] [facility] [address] 07/06 CBC w/ auto diff MO # 10*3/u L 0.3 0.82 0.57 FINAL Milvia Robbing [facility] ([facility]), [address], [address] [facility] [address] 07/06 CBC w/ auto diff EO # 10*3/u lL 0.04 0.54 0.23 FINAL Milvia Robbing [facility]), [address], [address] [facility] [address] 07/06 CBC w/ auto diff BA # 10*3/u L 0.01 0.08 0.04 FINAL Milvia Cezaring [facility]), [address], [address] [facility] [address] 07/06 CBC w/ auto diff Alan % % 34.0 67.9 69.4 High FINAL Milvia Liming [facility]), [address], [address] [place] [address] 07/06 CBC w/ auto diff LY % % 21.8 53.1 17.2 Low FINAL Milvia Liming [facility] ([facility]), [address], [address] [place] [address] 07/06 CBC w/ auto diff MO % % 5.3 12.2 9.1 FINAL Milvia Liming [facility] ([facility]), [address], [address] [place] [address] 07/06 CBC w/ auto diff EO % % 0.8 7.0 3.7 FINAL Milvia Liming [facility] ([facility]), [address], [address] [place] [address] 07/06 CBC w/ auto diff BA % % 0.2 1.2 0.6 FINAL Milvia Liming [facility] ([facility]), [address], [address] [place] [address] 07/06 CBC w/ auto diff RBC 10*6/u L 4.63 6.08 4.55 Low FINAL Milvia Liming [facility] ([facility]), [address], [address] [place] [address] 07/06 CBC w/ auto diff HGB g/dL 13.7 17.5 13.4 Low FINAL Milvia Liming [facility] ([facility]), [address], [address] [place] [address] 07/06 CBC w/ auto diff HCT % 40.1 51.0 39.9 Low FINAL Milvia Liming [facility] ([facility]), [address], [address] [place] [address] 07/06 CBC w/ auto diff MCV fL 79.0 92.2 87.7 FINAL Milvia Liming [facility] ([facility]), [address], [address] [place] [address] 07/06 CBC w/ auto diff MCH pg 25.7 32.2 29.5 FINAL Milvia Liming [facility] ([facility]GT), [address], [address] [place] [id number] 07/06 CBC w/ auto diff MCHC g/dL 32.3 36.5 33.6 FINAL Milvia Johnson [facility] (T), [address], [address] [place], [place] [id number] 07/06 CBC w/ auto diff RDW-C V, % % 11.6 14.4 13.7 FINAL Milvia Johnson [facility] (T), [address], [address] [place], [place] [address] 07/06 CBC w/ auto diff PLT 10*3/u L 163.0 337.0 197.0 [facility]AL [facility] [address], [address] [place], [place] [address] 07/06 CBC w/ auto diff WBC 10*3/u L 4.2 9.1 6.2 FINAL Milvia Johnson [facility] (T), [address], [address] [place], [place] [id number] 07/06 CBC w/ auto diff Alan # (ANC) 10*3/u L 1.78 5.38 4.32 FINAL [facility] [address] [facility] [address] [place], [place] [id number] 07/06 PSA, total ng/mL 0.04 [facility]AL [facility] [place] [facility]), [address] [place] [address] 10/06 CMP - Core Lab Sodiu m mmol/L 136.0 145.0 142 FINAL [facility] [place] ([facility]), [address] [place] [address] 10/06 CMP - Core Lab Potas sium mmol/L 3.5 5.1 4.4 FINAL [facility] [place] ([facility]), [address] [place] [address] 10/06 CMP - Core Lab Chlor naif mmol/L 98.0 107.0 107 FINAL [facility] [place] ([facility]), [address] [place] [address] 10/06 CMP - Core Lab CO2 mmol/L 20.0 31.0 25.4 FINAL [facility] ([facility]), [address] [place] [address] 10/06 CMP - Core Lab Anion gap, mmol/ L mmol/L 4.0 15.0 9.6 FINAL [facility] ([facility]), [address] [place] [address] [place] [address] 10/06 CMP - Core Lab BUN mg/dL 9.0 23.0 19 FINAL [facility] ([facility]), [address] [place] [address] 10/06 CMP - Core Lab BUN/C reati nine ratio 0.0 25.0 20.9 FINAL [facility] ([facility]), [address] [place] [address] 10/06 CMP - Core Lab Creat inine mg/dL 0.6 1.1 0.91 FINAL [facility] ([facility]), [address] [place] [address] 10/06 CMP - Core Lab GFR non-A frica n Ameri can, estim ated mL/min /1.73m >60.0 FINAL [facility] ([facility]), [address] [place] [address] [place] [address] 10/06 CMP - Core Lab GFR Afric an Ameri can, estim ated mL/min /1.73m >60.0 FINAL [facility] ([facility]), [address] [place] [address] [place] [address] 10/06 CMP - Core Lab Gluco se mg/dL 74.0 106.0 102 FINAL [facility] ([facility]), [address] [place] [address] [place] [address] 10/06 CMP - Core Lab Calci um mg/dL 8.7 10.6 10.8 High FINAL [facility] ([facility]), [address] [place] [address] [place] [address] 10/06 CMP - Core Lab Album in g/dL 3.4 5.0 4.4 FINAL [facility] ([facility]), [address] [place] [address] 10/06 CMP - Core Lab Total prote in g/dL 5.7 8.2 7.3 FINAL [facility] ([facility]), [address] [place] [address] [place] [address] 10/06 CMP - Core Lab A/G ratio 1.0 2.0 1.5 FINAL [facility] ([facility]), [address] [place] [address] 10/06 CMP - Core Lab Alkal ine phosp hatas e U/L 46.0 116.0 49 FINAL [facility] ([facility]), [address] [place] [address] 10/06 CMP - Core Lab ALT/S GPT U/L 10.0 49.0 27 FINAL [facility] ([facility]), [address] [place] [address] 10/06 CMP - Core Lab AST/S GOT U/L 0.0 34.0 23 FINAL [facility] ([facility]), [address] [place] [address] [place] [address] 10/06 CMP - Core Lab Bilir ubin, total mg/dL 0.3 1.2 0.4 FINAL [facility] ([facility]), [address] [place] [address] [place] [address] 10/06 CBC w/ auto diff WBC 10*3/u L 4.2 9.1 6.2 FINAL [facility] ([facility]), [address], [address] [facility] [address] 10/06 CBC w/ auto diff Alan # (ANC) 10*3/u L 1.78 5.38 4.31 FINAL [facility] ([facility]), [address], [address] [facility] [address] 10/06 CBC w/ auto diff LY # 10*3/u L 1.32 3.57 0.99 Low FINAL Shayne Herms [facility] (EGT), [address], [address] [place] [address] 10/06 CBC w/ auto diff MO # 10*3/u L 0.3 0.82 0.61 FINAL [facility] ([facility]), [address], [address] [place] [address] 10/06 CBC w/ auto diff EO # 10*3/u lL 0.04 0.54 0.26 FINAL [facility] (EGT), [address], [address] [place] [address] 10/06 CBC w/ auto diff BA # 10*3/u L 0.01 0.08 0.02 FINAL [facility] (T), [address], [address] [place] [address] 10/06 CBC w/ auto diff Alan % % 34.0 67.9 69.6 High FINAL [facility] (T), [address], [address] [place] [address] 10/06 CBC w/ auto diff LY % % 21.8 53.1 16.0 Low FINAL [facility] (EGT), [address], [address] [place] [address] 10/06 CBC w/ auto diff MO % % 5.3 12.2 9.9 FINAL [facility] (EGT), [address], [address] [place] [address] 10/06 CBC w/ auto diff EO % % 0.8 7.0 4.2 FINAL [facility] (EGT), [address], [address] [place] [address] 10/06 CBC w/ auto diff BA % % 0.2 1.2 0.3 FINAL [facility] (EGT), [address], [address] [place] [address] 10/06 CBC w/ auto diff RBC 10*6/u L 4.63 6.08 4.82 FINAL [facility] (EGT), [address], [address] [place] [address] 10/06 CBC w/ auto diff HGB g/dL 13.7 17.5 14.0 FINAL [facility] (T), [address], [address] [place], [place] [id number] 10/06 CBC w/ auto diff HCT % 40.1 51.0 42.0 FINAL [facility] ([facility]), [address], [address] [place], [place] [address] 10/06 CBC w/ auto diff MCV fL 79.0 92.2 87.1 FINAL [facility] ([facility]), [address], [address] [place] [address] 10/06 CBC w/ auto diff MCH pg 25.7 32.2 29.0 FINAL [facility] ([facility]), [address], [address] [place], [place] [id number] 10/06 CBC w/ auto diff MCHC g/dL 32.3 36.5 33.3 FINAL [facility] (T), [address], [address] [place] [address] 10/06 CBC w/ auto diff RDW-C V, % % 11.6 14.4 14.0 FINAL [facility] (T), [address], [address] [place] [address] 10/06 CBC w/ auto diff PLT 10*3/u L 163.0 337.0 212.0 FINAL [facility] ([facility]), [address], [address] [place], [place] [id number] 10/06 PSA, total ng/mL 0.04 FINAL [facility] [place] ([facility]), [address] [facility] [address] 01/05 CMP - Core Lab Sodiu m mmol/L 136.0 145.0 140 FINAL Milvia Johnson [facility] [place] ([facility]), [address] [facility] [address] 01/05 CMP - Core Lab Potas sium mmol/L 3.5 5.1 4.4 FINAL [facility] [place] ([facility]), [address] [place] [address] 01/05 CMP - Core Lab Chlor naif mmol/L 98.0 107.0 106 FINAL [facility] [place] ([facility]), [address] [place] [address] 01/05 CMP - Core Lab CO2 mmol/L 20.0 31.0 26.6 FINAL [facility]), [address] [place] [address] 01/05 CMP - Core Lab Anion gap, mmol/ L mmol/L 4.0 15.0 7.4 FINAL [facility] ([facility]), [address] [place] [address] 01/05 CMP - Core Lab BUN mg/dL 9.0 23.0 22 FINAL [facility] ([facility]), [address] [place] [address] 01/05 CMP - Core Lab BUN/C reati nine ratio 0.0 25.0 22.4 FINAL [facility] ([facility]), [address] [place] [address] 01/05 CMP - Core Lab Creat inine mg/dL 0.6 1.1 0.98 FINAL [facility] ([facility]), [address] [place] [address] 01/05 CMP - Core Lab GFR non-A frica n Ameri can, estim ated mL/min /1.73m >60.0 FINAL Milvia [facility] [place] ([facility]), [address] [place] [address] 01/05 CMP - Core Lab GFR Afric an Ameri can, estim ated mL/min /1.73m >60.0 FINAL [facility] [place] ([facility]), [address] [place] [address] 01/05 CMP - Core Lab Gluco se mg/dL 74.0 106.0 109 High FINAL Milvia Cezaring [facility] [place] ([facility]), [address] [place] [address] [place] [address] 01/05 CMP - Core Lab Calci um mg/dL 8.7 10.6 9.7 FINAL [facility] [place] ([facility]), [address] [place] [address] [place] [address] 01/05 CMP - Core Lab Album in g/dL 3.4 5.0 3.8 FINAL [facility] [place] ([facility]), [address] [place] [address] [place] [address] 01/05 CMP - Core Lab Total prote in g/dL 5.7 8.2 6.5 FINAL [facility] [place] ([facility]), [address] [place] [address] [place] [address] 01/05 CMP - Core Lab A/G ratio 1.0 2.0 1.4 FINAL [facility] ([facility]), [address] [place] [address] [place] [address] 01/05 CMP - Core Lab Alkal ine phosp hatas e U/L 46.0 116.0 46 FINAL [facility] ([facility]), [address] [place] [address] [place] [address] 01/05 CMP - Core Lab ALT/S GPT U/L 10.0 49.0 24 FINAL [facility] ([facility]), [address] [place] [address] [place] [address] 01/05 CMP - Core Lab AST/S GOT U/L 0.0 34.0 23 FINAL [facility] [place] ([facility]), [address] [place] [address] [place] [address] 01/05 CMP - Core Lab Bilir ubin, total mg/dL 0.3 1.2 0.4 FINAL [facility] [place] ([facility]), [address] [place] [address] [place] [address] 01/05 CBC w/ auto diff WBC 10*3/u L 4.2 9.1 5.2 FINAL [facility] ([facility]), [address], [address] [facility] [address] 01/05 CBC w/ auto diff Alan # (ANC) 10*3/u L 1.78 5.38 3.53 FINAL Milvia Johnson [facility]), [address], [address] [place] [address] 01/05 CBC w/ auto diff LY # 10*3/u L 1.32 3.57 0.94 Low FINAL Milvia Johnson [facility] ([facility]), [address], [address] [place] [address] 01/05 CBC w/ auto diff MO # 10*3/u L 0.3 0.82 0.46 FINAL Milvia Johnson [facility] [place] ([facility]), [address], [address] [place] [address] 01/05 CBC w/ auto diff EO # 10*3/u lL 0.04 0.54 0.20 FINAL Milvia Johnson [facility] ([facility]), [address], [address] [place] [address] 01/05 CBC w/ auto diff BA # 10*3/u L 0.01 0.08 0.02 FINAL Milvia Johnson [facility] ([facility]), [address], [address] [place] [address] 01/05 CBC w/ auto diff Alan % % 34.0 67.9 68.5 High FINAL Milvia Johnson [facility] ([facility]), [address], [address] [place] [address] 01/05 CBC w/ auto diff LY % % 21.8 53.1 18.3 Low FINAL Milvia Johnson [facility] ([facility]), [address], [address] [place] [address] 01/05 CBC w/ auto diff MO % % 5.3 12.2 8.9 FINAL Milvia Robbing [facility] ([facility]), [address], [address] [place] [address] 01/05 CBC w/ auto diff EO % % 0.8 7.0 3.9 FINAL [facility] ([facility]), [address], [address] [place] [address] 01/05 CBC w/ auto diff BA % % 0.2 1.2 0.4 FINAL [facility] ([facility]), [address], [address] [place] [address] 01/05 CBC w/ auto diff RBC 10*6/u L 4.63 6.08 4.42 Low FINAL [facility] ([facility]), [address], [address] [place] [address] 01/05 CBC w/ auto diff HGB g/dL 13.7 17.5 12.9 Low FINAL [facility] ([facility]), [address], [address] [place] [address] 01/05 CBC w/ auto diff HCT % 40.1 51.0 39.9 Low FINAL [facility] ([facility]), [address], [address] [place] [address] 01/05 CBC w/ auto diff MCV fL 79.0 92.2 90.3 FINAL [facility] ([facility]), [address], [address] [place] [address] 01/05 CBC w/ auto diff MCH pg 25.7 32.2 29.2 FINAL [facility] ([facility]), [address], [address] [place] [address] 01/05 CBC w/ auto diff MCHC g/dL 32.3 36.5 32.3 FINAL [facility] ([facility]), [address], [address] [place] [address] 01/05 CBC w/ auto diff RDW-C V, % % 11.6 14.4 13.6 FINAL [facility] ([facility]), [address], [address] [place] [address] 01/05 CBC w/ auto diff PLT 10*3/u L 163.0 337.0 176.0 FINAL [facility] [address], [address] [facility] [address] 01/05 PSA, total ng/mL 0.04 FINAL [facility] [place] ([facility]), [address] [place] [address] 04/07 CMP - Core Lab Sodiu m mmol/L 136.0 145.0 139 FINAL [facility] ([facility]), [address] [place] [address] 04/07 CMP - Core Lab Potas sium mmol/L 3.5 5.1 4.2 FINAL [facility] ([facility]), [address] [place] [address] 04/07 CMP - Core Lab Chlor naif mmol/L 98.0 107.0 104 FINAL [facility] ([facility]), [address] [place] [address] [place] [address] 04/07 CMP - Core Lab CO2 mmol/L 20.0 31.0 28.3 FINAL [facility] ([facility]), [address] [place] [address] 04/07 CMP - Core Lab Anion gap, mmol/ L mmol/L 4.0 15.0 6.7 FINAL [facility] ([facility]), [address] [place] [address] [place] [address] 04/07 CMP - Core Lab BUN mg/dL 9.0 23.0 20 FINAL [facility] ([facility]), [address] [place] [address] [place] [address] 04/07 CMP - Core Lab BUN/C reati nine ratio 0.0 25.0 21.3 FINAL [facility] ([facility]), [address] [place] [address] [place] [address] 04/07 CMP - Core Lab Creat inine mg/dL 0.6 1.1 0.94 FINAL [facility] ([facility]), [address] [place] [address] 04/07 CMP - Core Lab GFR non-A frica n Ameri can, estim ated mL/min /1.73m >60.0 FINAL [facility] ([facility]), [address] [place] [address] 04/07 CMP - Core Lab GFR Afric an Ameri can, estim ated mL/min /1.73m >60.0 FINAL [facility] ([facility]), [address] [place] [address] 04/07 CMP - Core Lab Gluco se mg/dL 74.0 106.0 127 High FINAL [facility] ([facility]), [address] [place] [address] 04/07 CMP - Core Lab Calci um mg/dL 8.7 10.6 10.6 FINAL [facility] ([facility]), [address] [place] [address] 04/07 CMP - Core Lab Album in g/dL 3.4 5.0 4.2 FINAL [facility] ([facility]), [address] [place] [address] 04/07 CMP - Core Lab Total prote in g/dL 5.7 8.2 7.3 FINAL [facility] ([facility]), [address] [place] [address] 04/07 CMP - Core Lab A/G ratio 1.0 2.0 1.4 FINAL [facility] ([facility]), [address] [place] [address] 04/07 CMP - Core Lab Alkal ine phosp hatas e U/L 46.0 116.0 47 FINAL [facility] ([facility]), [address] [place] [address] 04/07 CMP - Core Lab ALT/S GPT U/L 10.0 49.0 25 FINAL [facility] ([facility]), [address] [place] [address] 04/07 CMP - Core Lab AST/S GOT U/L 0.0 34.0 25 FINAL [facility] [place] ([facility]), [address] [facility] [address] 04/07 CMP - Core Lab Bilir ubin, total mg/dL 0.3 1.2 0.5 FINAL [facility] [place] ([facility]), [address] [facility] [address] 04/07 PSA, total ng/mL 0.04 FINAL [facility] [place] ([facility]), [facility] [address] 04/07 CBC w/ auto diff WBC 10*3/u L 4.2 9.1 5.5 FINAL [facility] (T), [address], [address] [place], [place] [address] 04/07 CBC w/ auto diff Alan # (ANC) 10*3/u L 1.78 5.38 3.98 FINAL [facility] (T), [address], [address] [place], [place] [address] 04/07 CBC w/ auto diff LY # 10*3/u L 1.32 3.57 0.91 Low FINAL [facility] (EGT), [address], [address] [place], [place] [address] 04/07 CBC w/ auto diff MO # 10*3/u L 0.3 0.82 0.40 FINAL [facility] (T), [address], [address] [place] [id number] 04/07 CBC w/ auto diff EO # 10*3/u lL 0.04 0.54 0.19 FINAL [facility] (T), [address], [address] [place] [id number] 04/07 CBC w/ auto diff BA # 10*3/u L 0.01 0.08 0.02 FINAL [facility]), [address], [address] [facility] [address] 04/07 CBC w/ auto diff Alan % % 34.0 67.9 72.3 High FINAL [facility] (T), [address], [address] [place] [address] 04/07 CBC w/ auto diff LY % % 21.8 53.1 16.5 Low FINAL [facility] (EGT), [address], [address] [place] [address] 04/07 CBC w/ auto diff MO % % 5.3 12.2 7.3 FINAL [facility] (T), [address], [address] [place] [address] 04/07 CBC w/ auto diff EO % % 0.8 7.0 3.5 FINAL [facility] (T), [address], [address] [place] [address] 04/07 CBC w/ auto diff BA % % 0.2 1.2 0.4 FINAL [facility] (T), [address], [address] [place] [address] 04/07 CBC w/ auto diff RBC 10*6/u L 4.63 6.08 4.70 FINAL [facility] (T), [address], [address] [place] [address] 04/07 CBC w/ auto diff HGB g/dL 13.7 17.5 13.7 FINAL [facility] (T), [address], [address] [place] [address] 04/07 CBC w/ auto diff HCT % 40.1 51.0 41.6 FINAL [facility] (T), [address], [address] [place] [address] 04/07 CBC w/ auto diff MCV fL 79.0 92.2 88.5 FINAL [facility] (T), [address], [address] [place] [address] 04/07 CBC w/ auto diff MCH pg 25.7 32.2 29.1 FINAL [facility] (T), [address], [address] [facility] [address] 04/07 CBC w/ auto diff MCHC g/dL 32.3 36.5 32.9 FINAL [facility] ([facility]), [address] [facility], [address] [place] [id number] 04/07 CBC w/ auto diff RDW-C V, % % 11.6 14.4 13.7 FINAL [facility] ([facility]), [address] [facility] [address] [facility] [address] 04/07 CBC w/ auto diff PLT 10*3/u L 163.0 337.0 188.0 FINAL [facility] ([facility]), [address] [facility], [address] [place], [place] [id number] 07/05 CMP - Core Lab Sodiu m mmol/L 136.0 145.0 140 FINAL [facility] [place] ([facility]), [address] [place] [address] 07/05 CMP - Core Lab Potas sium mmol/L 3.5 5.1 4.2 FINAL [facility] ([facility]), [address] [place] [address] 07/05 CMP - Core Lab Chlor naif mmol/L 98.0 107.0 104 FINAL [facility] [place] ([facility]), [address] [place] [address] 07/05 CMP - Core Lab CO2 mmol/L 20.0 31.0 26.9 FINAL [facility] ([facility]), [address] [place], [place] [id number] 07/05 CMP - Core Lab Anion gap, mmol/ L mmol/L 4.0 15.0 9.1 FINAL [facility] ([facility]), [address] [place], [place] [id number] 07/05 CMP - Core Lab BUN mg/dL 9.0 23.0 16 FINAL [facility] [place] ([facility]), [address] [place], [place] [id number] 07/05 CMP - Core Lab BUN/C reati nine ratio 0.0 25.0 16.0 [facility]AL [facility]), [address] [place] [address] 07/05 CMP - Core Lab Creat inine mg/dL 0.73 1.18 1.00 FINAL [facility] ([facility]), [address] [place] [address]607 07/05 CMP - Core Lab GFR non-A frica n Ameri can, estim ated mL/min /1.73m >60.0 [facility]AL [facility] ([facility]), [address] [place] [address] 07/05 CMP - Core Lab GFR Afric an Ameri can, estim ated mL/min /1.73m >60.0 [facility]AL [facility] ([facility]), [address] [place] [address] 07/05 CMP - Core Lab Gluco se mg/dL 74.0 106.0 118 High FINAL [facility] ([facility]), [address] [place] [address] 07/05 CMP - Core Lab Calci um mg/dL 8.7 10.6 10.1 [facility]AL [facility] ([facility]), [address] [place] [address] 9[address]16 07/05 CMP - Core Lab Album in g/dL 3.4 5.0 4.2 FINAL [facility] ([facility]), [address] [place] [address]8554 07/05 CMP - Core Lab Total prote in g/dL 5.7 8.2 7.0 FINAL [facility] ([facility]), [address] [place] [address] 23471 07/05 CMP - Core Lab A/G ratio 1.0 2.0 1.5 [facility]AL [facility] ([facility]), [address] [place] [address] 07/05 CMP - Core Lab Alkal ine phosp hatas e U/L 46.0 116.0 44 Low FINAL [facility] ([facility]), [address] [facility] [address] 07/05 CMP - Core Lab ALT/S GPT U/L 10.0 49.0 32 FINAL [facility] ([facility]), [facility] [address] 07/05 CMP - Core Lab AST/S GOT U/L 0.0 34.0 30 FINAL [facility] ([facility]), [address] [place] [address] 09959 07/05 CMP - Core Lab Bilir ubin, total mg/dL 0.3 1.2 0.5 FINAL [facility] ([facility]), [address] [place] [address] 07/05 CBC w/ auto diff HCT % 40.1 51.0 45.8 FINAL [facility] (T), [address], [address] [place] [address] 07/05 CBC w/ auto diff MCV fL 79.0 92.2 89.5 FINAL [facility] (T), [address], [address] [place] [address] 07/05 CBC w/ auto diff MCH pg 25.7 32.2 29.3 FINAL [facility] (T), [address], [address] [place] [address] 07/05 CBC w/ auto diff MCHC g/dL 32.3 36.5 32.8 FINAL [facility] (T), [address], [address] [place] [address] 07/05 CBC w/ auto diff RDW-C V, % % 11.6 14.4 14.0 FINAL [facility] (T), [address], [address] [place] [id number] 07/05 CBC w/ auto diff PLT 10*3/u L 163.0 337.0 168.0 FINAL [facility] ([facility]), [address], [address] [place] [address] 07/05 CBC w/ auto diff WBC 10*3/u L 4.2 9.1 5.4 FINAL Destini [facility] [address], [address] [place] [address] 07/05 CBC w/ auto diff Alan # (ANC) 10*3/u L 1.78 5.38 3.78 FINAL [facility] ([facility]), [address], [address] [place] [address] 07/05 CBC w/ auto diff LY # 10*3/u L 1.32 3.57 0.88 Low FINAL [facility] ([facility]), [address], [address] [place] [address] 07/05 CBC w/ auto diff MO # 10*3/u L 0.3 0.82 0.53 FINAL [facility] ([facility]), [address], [address] [place] [address] 07/05 CBC w/ auto diff EO # 10*3/u lL 0.04 0.54 0.15 FINAL Destini B[facility]), [address], [address] [place] [address] 07/05 CBC w/ auto diff BA # 10*3/u L 0.01 0.08 0.02 FINAL Destini Hao [facility] ([facility]), [address], [address] [place] [address] 07/05 CBC w/ auto diff Alan % % 34.0 67.9 70.5 High FINAL [facility] ([facility]), [address], [address] [place] [address] 07/05 CBC w/ auto diff LY % % 21.8 53.1 16.4 Low FINAL [facility] ([facility]), [address], [address] [place] [address] 07/05 CBC w/ auto diff MO % % 5.3 12.2 9.9 FINAL [facility] ([facility]), [address], [address] [place], [place] [id number] 07/05 CBC w/ auto diff EO % % 0.8 7.0 2.8 FINAL [facility] ([facility]), [address], [address] [place] [id number] 07/05 CBC w/ auto diff BA % % 0.2 1.2 0.4 FINAL [facility] ([facility]), [address], [address] [place] [address] 07/05 CBC w/ auto diff RBC 10*6/u L 4.63 6.08 5.12 FINAL [facility] ([facility]), [address], [address] [place] [address] 07/05 CBC w/ auto diff HGB g/dL 13.7 17.5 15.0 FINAL [facility] ([facility]), [address], [address] [place] [address] 07/05 PSA, total ng/mL 0.04 FINAL [facility] [place] ([facility]), [address] [facility] [address] 10/10 CBC w/ auto diff WBC 10*3/u L 4.2 9.1 3.8 Low FINAL [facility] ([facility]GT), [address], [address] [place], [place] [id number] 10/10 CBC w/ auto diff Alan # (ANC) 10*3/u L 1.78 5.38 2.36 FINAL [facility] ([facility]), [address], [address] [place], [place] [id number] 10/10 CBC w/ auto diff LY # 10*3/u L 1.32 3.57 0.77 Low FINAL [facility] ([facility]), [address], [address] [facility] [address] 10/10 CBC w/ auto diff MO # 10*3/u L 0.3 0.82 0.46 FINAL [facility] ([facility]), [address], [address] [place] [address] 10/10 CBC w/ auto diff EO # 10*3/u lL 0.04 0.54 0.23 FINAL [facility] ([facility]), [address], [address] [place] [address] 10/10 CBC w/ auto diff BA # 10*3/u L 0.01 0.08 0.01 FINAL [facility] ([facility]), [address], [address] [place] [address] 10/10 CBC w/ auto diff Alan % % 34.0 67.9 61.6 FINAL [facility] ([facility]), [address], [address] [place] [address] 10/10 CBC w/ auto diff LY % % 21.8 53.1 20.1 Low FINAL [facility] ([facility]), [address], [address] [place] [address] 10/10 CBC w/ auto diff MO % % 5.3 12.2 12.0 FINAL [facility] ([facility]), [address], [address] [place] [address] 10/10 CBC w/ auto diff EO % % 0.8 7.0 6.0 FINAL [facility] ([facility]), [address], [address] [place] [address] 10/10 CBC w/ auto diff BA % % 0.2 1.2 0.3 FINAL [facility] ([facility]), [address], [address] [place] [address] 10/10 CBC w/ auto diff RBC 10*6/u L 4.63 6.08 3.70 Low FINAL [facility] ([facility]), [address], [address] [place] [address] 10/10 CBC w/ auto diff HGB g/dL 13.7 17.5 11.2 Low FINAL [facility] ([facility]GT), [address], [address] [place] [address] 10/10 CBC w/ auto diff HCT % 40.1 51.0 33.4 Low FINAL [facility] ([facility]GT), [address], [address] [place] [address] 10/10 CBC w/ auto diff MCV fL 79.0 92.2 90.3 FINAL [facility] (T), [address], [address] [place] [address] 36571 10/10 CBC w/ auto diff MCH pg 25.7 32.2 30.3 FINAL [facility] (T), [address], [address] [place], [place] [address] 10/10 CBC w/ auto diff MCHC g/dL 32.3 36.5 33.5 FINAL [facility] (T), [address], [address] [place] [address]67 10/10 CBC w/ auto diff RDW-C V, % % 11.6 14.4 14.4 FINAL [facility] (T), [address], [address] [place] [address]61 10/10 CBC w/ auto diff PLT 10*3/u L 163.0 337.0 154.0 Low FINAL [facility] (T), [address], [address] [place] [address]60 10/10 PSA, total ng/mL 0.04 FINAL [facility] [place] ([facility]), [address] [place] [address] 10/10 Darren tin ng/mL 10.5 307.3 207.9 FINAL [facility] [place] ([facility]), [address] [place] [address] 27598 10/10 CMP - Core Lab Sodiu m mmol/L 136.0 145.0 140 FINAL [facility] [place] ([facility]), [address] [place] [address]47 10/10 CMP - Core Lab Potas sium mmol/L 3.5 5.1 4.6 FINAL [facility] ([facility]), [address] [place] [address] [place] [address] 10/10 CMP - Core Lab Chlor naif mmol/L 98.0 107.0 104 FINAL [facility] ([facility]), [address] [place] [address] 70[address] 10/10 CMP - Core Lab CO2 mmol/L 20.0 31.0 27.7 FINAL [facility] ([facility]), [address] [place] [address] [place] [address] 10/10 CMP - Core Lab Anion gap, mmol/ L mmol/L 4.0 15.0 8.3 FINAL [facility] ([facility]), [address] [place] [address]256 10/10 CMP - Core Lab BUN mg/dL 9.0 23.0 19 FINAL [facility] ([facility]), [address] [place] [address] 7[address]33 10/10 CMP - Core Lab BUN/C reati nine ratio 0.0 25.0 18.3 FINAL [facility] ([facility]), [address] [place] [address] [place] [address] 10/10 CMP - Core Lab Creat inine mg/dL 0.73 1.18 1.04 FINAL [facility] ([facility]), [address] [place] [address] [place] [address] 10/10 CMP - Core Lab GFR non-A frica n Ameri can, estim ated mL/min /1.73m >60.0 FINAL [facility] ([facility]), [address] [place] [address] [place] [address] 10/10 CMP - Core Lab GFR Afric an Ameri can, estim ated mL/min /1.73m >60.0 FINAL [facility] ([facility]), [address] [place] [address] [place] [address] 10/10 CMP - Core Lab Gluco se mg/dL 74.0 106.0 110 High FINAL [facility] ([facility]), [address] [place] [address] [place] [address] 10/10 CMP - Core Lab Calci um mg/dL 8.7 10.6 9.6 FINAL [facility] ([facility]), [address] [place] [address] [place] [address] 10/10 CMP - Core Lab Album in g/dL 3.4 5.0 3.7 FINAL [facility] ([facility]), [address] [place] [address] [place] [address] 10/10 CMP - Core Lab Total prote in g/dL 5.7 8.2 6.4 FINAL [facility] ([facility]), [address] [place] [address] [place] [address] 10/10 CMP - Core Lab A/G ratio 1.0 2.0 1.4 FINAL [facility] ([facility]), [address] [place] [address] [place] [address] 10/10 CMP - Core Lab Alkal ine phosp hatas e U/L 46.0 116.0 33 Low FINAL [facility] ([facility]), [address] [place] [address] [place] [address] 10/10 CMP - Core Lab ALT/S GPT U/L 10.0 49.0 27 FINAL [facility] ([facility]), [address] [place] [address] [place] [address] 10/10 CMP - Core Lab AST/S GOT U/L 0.0 34.0 25 FINAL [facility] ([facility]), [address] [place] [address] [place] [address] 10/10 CMP - Core Lab Bilir ubin, total mg/dL 0.3 1.2 0.4 FINAL [facility] ([facility]), [address] [place] [address] [place] [address] 10/10 TIBC and perce nt sat w/ iron panel Iron / FE ug/dL 65.0 175.0 84 FINAL [facility] ([facility]), [address] [place] [address] [place] [address] 10/10 TIBC and perce nt sat w/ iron panel TIBC ug/dL 250.0 425.0 398 FINAL [facility] [place] ([facility]), [address] [facility] [address] 10/10 TIBC and perce nt sat w/ iron panel Iron, % satur ation % 20.0 50.0 21 FINAL [facility] [place] ([facility]), [facility] [address] 10/24 Lab Repor t See crop scout d 01/10 PSA, total ng/mL 0.04 FINAL [facility] [place] [facility] ([facility]), [facility] [address] 01/10 CBC w/ auto diff WBC 10*3/u L 4.2 9.1 4.1 Low [facility] [address], [address] [place] [address] 01/10 CBC w/ auto diff Alan # (ANC) 10*3/u L 1.78 5.38 2.90 FINAL [facility] (T), [address], [address] [place] [address]37 01/10 CBC w/ auto diff LY # 10*3/u L 1.32 3.57 0.69 Low [facility] [address], [address] [place] [address] 01/10 CBC w/ auto diff MO # 10*3/u L 0.3 0.82 0.37 [facility] [address], [address] [facility] [address] 01/10 CBC w/ auto diff EO # 10*3/u lL 0.04 0.54 0.11 [facility] [address], [address] [place] [address]8048 01/10 CBC w/ auto diff BA # 10*3/u L 0.01 0.08 0.01 [facility] [address], [address] [place] [address] 01/10 CBC w/ auto diff Alan % % 34.0 67.9 71.1 High FINAL Destini B[facility] ([facility]), [address], [address] [place] [address] 01/10 CBC w/ auto diff LY % % 21.8 53.1 16.9 Low FINAL Destini B[facility] ([facility]), [address], [address] [place] [address] 01/10 CBC w/ auto diff MO % % 5.3 12.2 9.1 FINAL Destini Bui [facility] ([facility]), [address], [address] [place] [address] 01/10 CBC w/ auto diff EO % % 0.8 7.0 2.7 FINAL [facility] ([facility]), [address], [address] [place] [address] 01/10 CBC w/ auto diff BA % % 0.2 1.2 0.2 FINAL [facility]), [address], [address] [place] [address] 01/10 CBC w/ auto diff RBC 10*6/u L 4.63 6.08 3.46 Low FINAL [facility]), [address], [address] [place] [address] 01/10 CBC w/ auto diff HGB g/dL 13.7 17.5 10.5 Low FINAL Destini Bui [facility] ([facility]), [address], [address] [place] [address] 01/10 CBC w/ auto diff HCT % 40.1 51.0 31.3 Low FINAL [facility] ([facility]GT), [address], [address] [place] [address] 01/10 CBC w/ auto diff MCV fL 79.0 92.2 90.5 FINAL [facility] ([facility]), [address], [address] [place], [place] [id number] 01/10 CBC w/ auto diff MCH pg 25.7 32.2 30.3 [facility] [address], [address] [place] [address] 01/10 CBC w/ auto diff MCHC g/dL 32.3 36.5 33.5 [facility]), [address], [address] [place] [address] 16455 01/10 CBC w/ auto diff RDW-C V, % % 11.6 14.4 12.7 FINAL [facility] (T), [address], [address] [place] [address] 01/10 CBC w/ auto diff PLT 10*3/u L 163.0 337.0 182.0 FINAL [facility] ([facility]), [address], [address] [place] [address] 17856 01/10 CMP - Core Lab Sodiu m mmol/L 136.0 145.0 139 FINAL [facility] ([facility]), [address] [place] [address] 01/10 CMP - Core Lab Potas sium mmol/L 3.5 5.1 4.1 FINAL [facility] ([facility]), [address] [place] [address] 266[address] 01/10 CMP - Core Lab Chlor naif mmol/L 98.0 107.0 105 FINAL [facility] ([facility]), [address] [place] [address] 83836 01/10 CMP - Core Lab CO2 mmol/L 20.0 31.0 27.2 FINAL [facility] ([facility]), [address] [place] [address]18 01/10 CMP - Core Lab Anion gap, mmol/ L mmol/L 4.0 15.0 6.8 FINAL [facility] ([facility]), [address] [place] [address] 14096 01/10 CMP - Core Lab BUN mg/dL 9.0 23.0 31 High FINAL Destini [facility] ([facility]), [address] [place] [address] [place] [address] 01/10 CMP - Core Lab BUN/C reati nine ratio 0.0 25.0 28.7 High FINAL Dest[facility] ([facility]), [address] [place] [address] [place] [address] 01/10 CMP - Core Lab Creat inine mg/dL 0.73 1.18 1.08 FINAL [facility] ([facility]), [address] [place] [address] 86776 01/10 CMP - Core Lab GFR non-A frica n Ameri can, estim ated mL/min /1.73m >60.0 [facility]), [address] [place] [address]19 01/10 CMP - Core Lab GFR Afric an Ameri can, estim ated mL/min /1.73m >60.0 FINAL [facility] ([facility]), [address] [place] [address] [place] [address] 01/10 CMP - Core Lab Gluco se mg/dL 74.0 106.0 103 FINAL [facility] ([facility]), [address] [place] [address] [place] [address] 01/10 CMP - Core Lab Calci um mg/dL 8.7 10.6 10.1 FINAL [facility] ([facility]), [address] [place] [address] [place] [address] 01/10 CMP - Core Lab Album in g/dL 3.4 5.0 4.0 FINAL [facility] ([facility]), [address] [place] [address] [place] [address] 01/10 CMP - Core Lab Total prote in g/dL 5.7 8.2 6.7 [facility]AL [facility] ([facility]), [address] [place] [address] [place] [address] 01/10 CMP - Core Lab A/G ratio 1.0 2.0 1.5 [facility] [place] [facility] ([facility]), [address] [place] [address] [place] [address] 01/10 CMP - Core Lab Alkal ine phosp hatas e U/L 46.0 116.0 36 Low [facility]AL [facility] ([facility]), [address] [place] [address] [place] [address] 01/10 CMP - Core Lab ALT/S GPT U/L 10.0 49.0 22 FINAL [facility] ([facility]), [address] [place] [address] [place] [address] 01/10 CMP - Core Lab AST/S GOT U/L 0.0 34.0 23 FINAL [facility] ([facility]), [address] [place] [address]874 01/10 CMP - Core Lab Bilir ubin, total mg/dL 0.3 1.2 0.4 FINAL [facility] ([facility]), [address] [place] [address]29 04/12 PSA, total ng/mL 0.04 FINAL [facility] ([facility]), [address] [place] [address] 49908 04/12 CBC w/ auto diff WBC 10*3/u L 4.2 9.1 4.7 FINAL [facility] ([facility]), [address], [address] [facility] [address] 04/12 CBC w/ auto diff Alan # (ANC) 10*3/u L 1.78 5.38 3.26 FINAL [facility] ([facility]), [address], [address] [facility] [address] 04/12 CBC w/ auto diff LY # 10*3/u L 1.32 3.57 0.88 Low FINAL [facility] ([facility]), [address], [address] [facility] [address] 04/12 CBC w/ auto diff MO # 10*3/u L 0.3 0.82 0.42 FINAL [facility] ([facility]), [address], [address] [place] [address] 04/12 CBC w/ auto diff EO # 10*3/u lL 0.04 0.54 0.15 FINAL [facility] ([facility]), [address], [address] [place] [address] 04/12 CBC w/ auto diff BA # 10*3/u L 0.01 0.08 0.02 FINAL [facility] ([facility]), [address], [address] [place] [address] 04/12 CBC w/ auto diff Alan % % 34.0 67.9 68.9 High FINAL [facility] ([facility]), [address], [address] [place] [address] 04/12 CBC w/ auto diff LY % % 21.8 53.1 18.6 Low FINAL [facility] ([facility]), [address], [address] [place] [address] 04/12 CBC w/ auto diff MO % % 5.3 12.2 8.9 FINAL [facility] ([facility]), [address], [address] [place] [address] 04/12 CBC w/ auto diff EO % % 0.8 7.0 3.2 FINAL [facility] ([facility]), [address], [address] [place] [address] 04/12 CBC w/ auto diff BA % % 0.2 1.2 0.4 FINAL [facility] ([facility]), [address], [address] [place] [address] 04/12 CBC w/ auto diff RBC 10*6/u L 4.63 6.08 3.84 Low FINAL [facility] ([facility]), [address], [address] [place] [address] 04/12 CBC w/ auto diff HGB g/dL 13.7 17.5 11.4 Low FINAL [facility] ([facility]), [address], [address] [place], [place] [id number] 04/12 CBC w/ auto diff HCT % 40.1 51.0 35.6 Low FINAL [facility] ([facility]GT), [address], [address] [place], [place] [id number] 04/12 CBC w/ auto diff MCV fL 79.0 92.2 92.7 High FINAL [facility] (T), [address], [address] [place], [place] [address] 04/12 CBC w/ auto diff MCH pg 25.7 32.2 29.7 FINAL [facility] (T), [address], [address] [place], [place] [address] 04/12 CBC w/ auto diff MCHC g/dL 32.3 36.5 32.0 Low FINAL [facility] (T), [address], [address] [place], [place] [address] 04/12 CBC w/ auto diff RDW-C V, % % 11.6 14.4 13.7 FINAL [facility] (T), [address], [address] [place], [place] [address] 04/12 CBC w/ auto diff PLT 10*3/u L 163.0 337.0 177.0 FINAL [facility] (T), [address], [address] [place], [place] [id number] 04/12 CMP - Core Lab Sodiu m mmol/L 136.0 145.0 140 FINAL [facility] [place] [facility] ([facility]), [address] [place], [place] [id number] 04/12 CMP - Core Lab Potas sium mmol/L 3.5 5.1 4.7 FINAL [facility] [place] ([facility]), [address] [place], [place] [id number] 04/12 CMP - Core Lab Chlor naif mmol/L 98.0 107.0 105 FINAL [facility] ([facility]), [address] [place], [place] [id number] 04/12 CMP - Core Lab CO2 mmol/L 20.0 31.0 25.7 FINAL [facility] ([facility]), [address] [place] [address]92 04/12 CMP - Core Lab Anion gap, mmol/ L mmol/L 4.0 15.0 9.3 FINAL [facility] ([facility]), [address] [place] [address]87 04/12 CMP - Core Lab BUN mg/dL 9.0 23.0 20 FINAL [facility] ([facility]), [address] [place] [id number] 04/12 CMP - Core Lab BUN/C reati nine ratio 0.0 25.0 19.0 FINAL [facility] ([facility]), [address] [place] [id number] 04/12 CMP - Core Lab Creat inine mg/dL 0.73 1.18 1.05 FINAL [facility] ([facility]), [address] [place], [place] [address] 7[address]32 04/12 CMP - Core Lab GFR non-A frica n Ameri can, estim ated mL/min /1.73m >60.0 FINAL [facility] ([facility]), [address] [place] [address] 76349 04/12 CMP - Core Lab GFR Afric an Ameri can, estim ated mL/min /1.73m >60.0 FINAL [facility] ([facility]), [address] [place] [address] 92080 04/12 CMP - Core Lab Gluco se mg/dL 74.0 106.0 109 High FINAL [facility] ([facility]), [address] [place] [address] 83968 04/12 CMP - Core Lab Calci um mg/dL 8.7 10.6 10.0 FINAL [facility] ([facility]), [address] [place] [address] 94857 04/12 CMP - Core Lab Album in g/dL 3.4 5.0 3.8 FINAL [facility] ([facility]), [address] [place] [address] 27624 04/12 CMP - Core Lab Total prote in g/dL 5.7 8.2 6.6 FINAL [facility] ([facility]), [address] [place] [address] 07843 04/12 CMP - Core Lab A/G ratio 1.0 2.0 1.4 FINAL [facility] ([facility]), [address] [place] [address] 70434 04/12 CMP - Core Lab Alkal ine phosp hatas e U/L 46.0 116.0 35 Low FINAL [facility] ([facility]), [address] [place] [address] 29372 04/12 CMP - Core Lab ALT/S GPT U/L 10.0 49.0 34 FINAL [facility] ([facility]), [address] [place] [address] 88162 04/12 CMP - Core Lab AST/S GOT U/L 0.0 34.0 38 High FINAL [facility] ([facility]), [address] [place] [address] 79471 04/12 CMP - Core Lab Bilir ubin, total mg/dL 0.3 1.2 0.4 FINAL [facility] ([facility]), [address] [place] [address] [place] [address] 07/10 CBC w/ auto diff WBC 10*3/u L 4.2 9.1 5.3 FINAL [facility] ([facility]), [address], [address] [place] [address] 328[address] 07/10 CBC w/ auto diff Alan # (ANC) 10*3/u L 1.78 5.38 3.62 FINAL [facility] ([facility]), [address], [address] [place] [address] 20774 07/10 CBC w/ auto diff LY # 10*3/u L 1.32 3.57 0.96 Low [facility] [address], [address] [place] [address] 07/10 CBC w/ auto diff MO # 10*3/u L 0.3 0.82 0.47 FINAL [facility] ([facility]), [address], [address] [place] [address] 07/10 CBC w/ auto diff EO # 10*3/u lL 0.04 0.54 0.24 FINAL [facility] [address], [address] [place] [address] 07/10 CBC w/ auto diff BA # 10*3/u L 0.01 0.08 0.01 FINAL [facility]), [address], [address] [place] [address] 07/10 CBC w/ auto diff Alan % % 34.0 67.9 68.3 High FINAL [facility]), [address], [address] [place] [address] 07/10 CBC w/ auto diff LY % % 21.8 53.1 18.1 Low FINAL [facility]), [address], [address] [place] [address] 07/10 CBC w/ auto diff MO % % 5.3 12.2 8.9 FINAL [facility]), [address], [address] [place] [address] 07/10 CBC w/ auto diff EO % % 0.8 7.0 4.5 FINAL [facility] ([facility]), [address], [address] [place] [address] 07/10 CBC w/ auto diff BA % % 0.2 1.2 0.2 FINAL [facility] ([facility]), [address], [address] [place] [address] 07/10 CBC w/ auto diff RBC 10*6/u L 4.63 6.08 4.05 Low FINAL [facility] ([facility]), [address], [address] [place] [id number] 07/10 CBC w/ auto diff HGB g/dL 13.7 17.5 12.1 Low FINAL [facility] ([facility]), [address], [address] [place] [address] 07/10 CBC w/ auto diff HCT % 40.1 51.0 37.2 Low FINAL [facility] ([facility]), [address], [address] [place], [place] [id number] 07/10 CBC w/ auto diff MCV fL 79.0 92.2 91.9 FINAL [facility] ([facility]), [address], [address] [place] [address] 07/10 CBC w/ auto diff MCH pg 25.7 32.2 29.9 FINAL [facility] ([facility]), [address], [address] [place], [place] [address] 07/10 CBC w/ auto diff MCHC g/dL 32.3 36.5 32.5 FINAL [facility] ([facility]), [address], [address] [place] [address] 07/10 CBC w/ auto diff RDW-C V, % % 11.6 14.4 13.6 FINAL [facility] ([facility]), [address], [address] [place] [address] 07/10 CBC w/ auto diff PLT 10*3/u L 163.0 337.0 166.0 FINAL [facility] ([facility]), [address], [address] [place], [place] [id number] 07/10 CMP - Core Lab Sodiu m mmol/L 136.0 145.0 140 [facility] [address] [place], [place] [id number] 07/10 CMP - Core Lab Potas sium mmol/L 3.5 5.1 4.4 [facility]), [address] [place] [address] [place] [address] 07/10 CMP - Core Lab Chlor naif mmol/L 98.0 107.0 105 FINAL [facility] ([facility]), [address] [place] [address] 41794 07/10 CMP - Core Lab CO2 mmol/L 20.0 31.0 25.7 FINAL [facility] ([facility]), [address] [place] [address] 04770 07/10 CMP - Core Lab Anion gap, mmol/ L mmol/L 4.0 15.0 9.3 FINAL [facility] ([facility]), [address] [place] [address] 14640 07/10 CMP - Core Lab BUN mg/dL 9.0 23.0 23 FINAL [facility] ([facility]), [address] [place] [address] 88631 07/10 CMP - Core Lab BUN/C reati nine ratio 0.0 25.0 22.8 FINAL [facility] ([facility]), [address] [place] [address] [place] [address] 07/10 CMP - Core Lab Creat inine mg/dL 0.73 1.18 1.01 FINAL [facility] ([facility]), [address] [place] [address] [place] [address] 07/10 CMP - Core Lab eGFR, mL/mi n/1.7 3 mL/min /1.73m 60.0 0.0 >60.0 FINAL [facility] ([facility]), [address] [place] [address] [place] [address] 07/10 CMP - Core Lab Gluco se mg/dL 74.0 106.0 124 High FINAL [facility] ([facility]), [address] [place] [address] 12782 07/10 CMP - Core Lab Calci um mg/dL 8.7 10.6 10.4 FINAL [facility] ([facility]), [address] [place] [address] [place] [address] 07/10 CMP - Core Lab Album in g/dL 3.4 5.0 4.1 FINAL [facility] ([facility]), [address] [place] [address] 01394 07/10 CMP - Core Lab Total prote in g/dL 5.7 8.2 7.1 FINAL [facility] ([facility]), [address] [place] [address] 27061 07/10 CMP - Core Lab A/G ratio 1.0 2.0 1.4 FINAL [facility] ([facility]), [address] [place] [address] 22208 07/10 CMP - Core Lab Alkal ine phosp hatas e U/L 46.0 116.0 38 Low FINAL [facility] ([facility]), [address] [place] [address] 36476 07/10 CMP - Core Lab ALT/S GPT U/L 10.0 49.0 23 FINAL [facility] ([facility]), [address] [place] [address] 43064 07/10 CMP - Core Lab AST/S GOT U/L 0.0 34.0 26 FINAL [facility] ([facility]), [address] [place] [address] 92323 07/10 CMP - Core Lab Bilir ubin, total mg/dL 0.3 1.2 0.4 FINAL [facility] ([facility]), [address] [place] [address] 74605 07/10 PSA, total ng/mL 0.04 FINAL [facility] ([facility]), [address] [place] [address] 65702 10/10 CBC w/ auto diff WBC 10*3/u L 4.2 9.1 4.4 FINAL [facility] ([facility]), [address], [address] [facility] [address] 10/10 CBC w/ auto diff Alan # (ANC) 10*3/u L 1.78 5.38 3.10 FINAL [facility] ([facility]), [address], [address] [place] [address] 10/10 CBC w/ auto diff LY # 10*3/u L 1.32 3.57 0.74 Low FINAL [facility] ([facility]), [address], [address] [place] [address] 10/10 CBC w/ auto diff MO # 10*3/u L 0.3 0.82 0.36 FINAL [facility] ([facility]), [address], [address] [place] [address] 10/10 CBC w/ auto diff EO # 10*3/u lL 0.04 0.54 0.14 FINAL [facility] (T), [address], [address] [place] [address] 10/10 CBC w/ auto diff BA # 10*3/u L 0.01 0.08 0.02 FINAL [facility] ([facility]), [address], [address] [place] [address] 10/10 CBC w/ auto diff Alan % % 34.0 67.9 71.0 High FINAL [facility] (T), [address], [address] [place] [address] 10/10 CBC w/ auto diff LY % % 21.8 53.1 17.0 Low FINAL [facility] (T), [address], [address] [place] [address] 10/10 CBC w/ auto diff MO % % 5.3 12.2 8.3 FINAL [facility] ([facility]), [address], [address] [place] [address] 10/10 CBC w/ auto diff EO % % 0.8 7.0 3.2 FINAL [facility] ([facility]), [address], [address] [place] [address] 10/10 CBC w/ auto diff BA % % 0.2 1.2 0.5 FINAL [facility] (T), [address], [address] [place] [address] 10/10 CBC w/ auto diff RBC 10*6/u L 4.63 6.08 4.04 Low FINAL [facility] ([facility]), [address], [address] [place], [place] [id number] 10/10 CBC w/ auto diff HGB g/dL 13.7 17.5 12.4 Low FINAL [facility] (T), [address], [address] [place] [address] 10/10 CBC w/ auto diff HCT % 40.1 51.0 38.0 Low FINAL [facility] (T), [address], [address] [place] [address] 10/10 CBC w/ auto diff MCV fL 79.0 92.2 94.1 High FINAL [facility] (T), [address], [address] [place] [address] 10/10 CBC w/ auto diff MCH pg 25.7 32.2 30.7 FINAL [facility] (T), [address], [address] [place] [address] 10/10 CBC w/ auto diff MCHC g/dL 32.3 36.5 32.6 FINAL [facility] (T), [address], [address] [place] [address] 10/10 CBC w/ auto diff RDW-C V, % % 11.6 14.4 13.9 FINAL [facility] (T), [address], [address] [place] [address] 10/10 CBC w/ auto diff PLT 10*3/u L 163.0 337.0 174.0 FINAL [facility] (T), [address], [address] [place] [address] 10/10 CMP - Core Lab Sodiu m mmol/L 136.0 145.0 139 FINAL [facility] ([facility]), [address] [address] 10/10 CMP - Core Lab Potas sium mmol/L 3.5 5.1 4.2 FINAL [facility] ([facility]), [address] [place] [address] [place] [address] 10/10 CMP - Core Lab Chlor naif mmol/L 98.0 107.0 107 FINAL [facility] ([facility]), [address] [place] [address] [place] [address] 10/10 CMP - Core Lab CO2 mmol/L 20.0 31.0 27.3 FINAL [facility] ([facility]), [address] [place] [address] 77235 10/10 CMP - Core Lab Anion gap, mmol/ L mmol/L 4.0 15.0 4.7 FINAL [facility] ([facility]), [address] [place] [address] 85627 10/10 CMP - Core Lab BUN mg/dL 9.0 23.0 15 FINAL [facility] ([facility]), [address] [place] [address] 38467 10/10 CMP - Core Lab BUN/C reati nine ratio 0.0 25.0 15.3 FINAL [facility] ([facility]), [address] [place] [address] [place] [address] 10/10 CMP - Core Lab Creat inine mg/dL 0.73 1.18 0.98 FINAL [facility] ([facility]), [address] [place] [address] 61585 10/10 CMP - Core Lab eGFR, mL/mi n/1.7 3 mL/min /1.73m 60.0 0.0 >60.0 FINAL [facility] ([facility]), [address] [place] [address] [place] [address] 10/10 CMP - Core Lab Gluco se mg/dL 74.0 106.0 95 FINAL [facility] ([facility]), [address] [place] [address] [place] [address] 10/10 CMP - Core Lab Calci um mg/dL 8.7 10.6 9.5 FINAL [facility] ([facility]), [address] [place] [address] [place] [address] 10/10 CMP - Core Lab Album in g/dL 3.4 5.0 3.8 FINAL [facility] ([facility]), [address] [place] [address] [place] [address] 10/10 CMP - Core Lab Total prote in g/dL 5.7 8.2 6.5 FINAL [facility] ([facility]), [address] [place] [address] [place] [address] 10/10 CMP - Core Lab A/G ratio 1.0 2.0 1.4 FINAL [facility] ([facility]), [address] [place] [address] [place] [address] 10/10 CMP - Core Lab Alkal ine phosp hatas e U/L 46.0 116.0 44 Low FINAL [facility] ([facility]), [address] [place] [address] [place] [address] 10/10 CMP - Core Lab ALT/S GPT U/L 10.0 49.0 19 FINAL [facility] ([facility]), [address] [place] [address] [place] [address] 10/10 CMP - Core Lab AST/S GOT U/L 0.0 34.0 23 FINAL [facility] ([facility]), [address] [place] [address] [place] [address] 10/10 CMP - Core Lab Bilir ubin, total mg/dL 0.3 1.2 0.4 FINAL [facility] ([facility]), [address] [place] [address] [place] [address] 10/10 PSA, total ng/mL 0.04 FINAL [facility] ([facility]), [address] [place] [address] [place] [address] 01/10 PSA, total ng/mL < 0.04 [facility]), [address] [place] [address] [place] [address] 01/10 CMP - Core Lab Sodiu m mmol/L 136.0 145.0 138 FINAL [facility] ([facility]), [address] [place] [address] [place] [address] 01/10 CMP - Core Lab Potas sium mmol/L 3.5 5.1 4.2 FINAL [facility] ([facility]), [address] [place] [address] [place] [address] 01/10 CMP - Core Lab Chlor naif mmol/L 98.0 107.0 106 FINAL [facility] ([facility]), [address] [place] [address] [place] [address] 01/10 CMP - Core Lab CO2 mmol/L 20.0 31.0 27.0 FINAL [facility] ([facility]), [address] [place] [address] [place] [address] 01/10 CMP - Core Lab Anion gap, mmol/ L mmol/L 4.0 15.0 5.0 FINAL [facility] ([facility]), [address] [place] [address] [place] [address] 01/10 CMP - Core Lab BUN mg/dL 9.0 23.0 18 FINAL [facility] ([facility]), [address] [place] [address] [place] [address] 01/10 CMP - Core Lab BUN/C reati nine ratio 0.0 25.0 18.6 FINAL [facility] ([facility]), [address] [place] [address] [place] [address] 01/10 CMP - Core Lab Creat inine mg/dL 0.73 1.18 0.97 FINAL [facility] ([facility]), [address] [place] [address] [place] [address] 01/10 CMP - Core Lab eGFR, mL/mi n/1.7 3 mL/min /1.73m 60.0 0.0 >60.0 FINAL [facility] ([facility]), [address] [place] [address] [place] [address] 01/10 CMP - Core Lab Gluco se mg/dL 74.0 106.0 104 FINAL [facility] ([facility]), [address] [place] [address] [place] [address] 01/10 CMP - Core Lab Calci um mg/dL 8.7 10.6 10.1 FINAL [facility] ([facility]), [address] [place] [address] [place] [address] 01/10 CMP - Core Lab Album in g/dL 3.4 5.0 4.2 FINAL [facility] ([facility]), [address] [place] [address] [place] [address] 01/10 CMP - Core Lab Total prote in g/dL 5.7 8.2 7.3 FINAL [facility] ([facility]), [address] [place] [address] [place] [address] 01/10 CMP - Core Lab A/G ratio 1.0 2.0 1.4 FINAL [facility] ([facility]), [address] [place] [address] [place] [address] 01/10 CMP - Core Lab Alkal ine phosp hatas e U/L 46.0 116.0 48 FINAL [facility] ([facility]), [address] [place] [address] [place] [address] 01/10 CMP - Core Lab ALT/S GPT U/L 10.0 49.0 23 FINAL [facility] ([facility]), [address] [place] [address] [place] [address] 01/10 CMP - Core Lab AST/S GOT U/L 0.0 34.0 22 FINAL [facility] ([facility]), [address] [place] [address] [place] [address] 01/10 CMP - Core Lab Bilir ubin, total mg/dL 0.3 1.2 0.5 FINAL [facility] ([facility]), [address] [place] [address] [place] [address] 01/10 CBC w/ auto diff WBC 10*3/u L 4.2 9.1 5.7 FINAL [facility] ([facility]), [address], [address] [place] [address] 01/10 CBC w/ auto diff Alan # (ANC) 10*3/u L 1.78 5.38 3.77 FINAL [facility] (T), [address], [address] [place] [address] 01/10 CBC w/ auto diff LY # 10*3/u L 1.32 3.57 1.16 Low [facility] [address], [address] [place] [address] 01/10 CBC w/ auto diff MO # 10*3/u L 0.3 0.82 0.49 [facility] [address], [address] [place] [address] 01/10 CBC w/ auto diff EO # 10*3/u lL 0.04 0.54 0.25 [facility] [address], [address] [place] [address] 01/10 CBC w/ auto diff BA # 10*3/u L 0.01 0.08 0.03 [facility] [address], [address] [place] [address] 01/10 CBC w/ auto diff Alan % % 34.0 67.9 66.1 [facility] [address], [address] [place] [address] 01/10 CBC w/ auto diff LY % % 21.8 53.1 20.4 Low [facility] [address], [address] [place] [address] 01/10 CBC w/ auto diff MO % % 5.3 12.2 8.6 FINAL [facility] ([facility]), [address], [address] [place] [address] 01/10 CBC w/ auto diff EO % % 0.8 7.0 4.4 [facility] [address], [address] [facility] [address] 01/10 CBC w/ auto diff BA % % 0.2 1.2 0.5 FINAL [facility] (T), [address], [address] [place] [address] 19834 01/10 CBC w/ auto diff RBC 10*6/u L 4.63 6.08 4.78 FINAL [facility] ([facility]), [address], [address] [place], [place] [address] 01/10 CBC w/ auto diff HGB g/dL 13.7 17.5 14.4 FINAL [facility] ([facility]), [address], [address] [place], [place] [id number] 01/10 CBC w/ auto diff HCT % 40.1 51.0 43.0 FINAL [facility] ([facility]), [address], [address] [place] [address] 01/10 CBC w/ auto diff MCV fL 79.0 92.2 90.0 FINAL [facility] (T), [address], [address] [place] [address] 01/10 CBC w/ auto diff MCH pg 25.7 32.2 30.1 FINAL [facility] ([facility]), [address], [address] [place] [address] 01/10 CBC w/ auto diff MCHC g/dL 32.3 36.5 33.5 FINAL [facility] (T), [address], [address] [place] [address] 01/10 CBC w/ auto diff RDW-C V, % % 11.6 14.4 13.2 FINAL [facility] ([facility]), [address], [address] [place] [address] 01/10 CBC w/ auto diff PLT 10*3/u L 163.0 337.0 191.0 FINAL [facility] ([facility]), [address], [address] [facility] [address] 04/11 CMP - Core Lab Sodiu m mmol/L 136.0 145.0 142 FINAL [facility] ([facility]), [address] [place] [address] 00744 04/11 CMP - Core Lab Potas sium mmol/L 3.4 5.1 4.5 FINAL [facility] ([facility]), [address] [place] [address] 71091 04/11 CMP - Core Lab Chlor naif mmol/L 98.0 107.0 106 FINAL [facility] ([facility]), [address] [place] [address] 55381 04/11 CMP - Core Lab CO2 mmol/L 20.0 31.0 25.3 FINAL [facility] ([facility]), [address] [place] [address] 04/11 CMP - Core Lab Anion gap, mmol/ L mmol/L 4.0 15.0 10.7 FINAL [facility] ([facility]), [address] [place] [address] 49474 04/11 CMP - Core Lab BUN mg/dL 9.0 23.0 23 FINAL [facility] ([facility]), [address] [place] [address] 16156 04/11 CMP - Core Lab BUN/C reati nine ratio 0.0 25.0 24.2 FINAL [facility] ([facility]), [address] [place] [address] 53099 04/11 CMP - Core Lab Creat inine mg/dL 0.73 1.18 0.95 FINAL [facility] ([facility]), [address] [place] [address] 06189 04/11 CMP - Core Lab eGFR, mL/mi n/1.7 3 mL/min /1.73m 60.0 0.0 >60.0 FINAL [facility] ([facility]), [address] [place] [address] 30874 04/11 CMP - Core Lab Gluco se mg/dL 74.0 106.0 87 FINAL [facility] ([facility]), [address] [place] [address] [place] [address] 04/11 CMP - Core Lab Calci um mg/dL 8.7 10.6 9.9 FINAL [facility] ([facility]), [address] [place] [address] [place] [address] 04/11 CMP - Core Lab Album in g/dL 3.4 5.0 3.9 FINAL [facility] ([facility]), [address] [place] [address] [place] [address] 04/11 CMP - Core Lab Total prote in g/dL 5.7 8.2 6.3 FINAL [facility] ([facility]), [address] [place] [address] [place] [address] 04/11 CMP - Core Lab A/G ratio 1.0 2.0 1.6 FINAL [facility] ([facility]), [address] [place] [address] [place] [address] 04/11 CMP - Core Lab Alkal ine phosp hatas e U/L 46.0 116.0 34 Low FINAL [facility] ([facility]), [address] [place] [address] [place] [address] 04/11 CMP - Core Lab ALT/S GPT U/L 10.0 49.0 19 FINAL [facility] ([facility]), [address] [place] [address] [place] [address] 04/11 CMP - Core Lab AST/S GOT U/L 0.0 34.0 22 FINAL [facility] ([facility]), [address] [place] [address] [place] [address] 04/11 CMP - Core Lab Bilir ubin, total mg/dL 0.3 1.2 0.3 FINAL [facility] ([facility]), [address] [place] [address] [place] [address] 04/11 PSA, total ng/mL < 0.04 FINAL [facility] ([facility]), [address] [place] [id number] 04/11 CBC w/ auto diff WBC 10*3/u L 4.2 9.1 3.8 Low FINAL [facility] ([facility]), [address], [address] [place] [address] 04/11 CBC w/ auto diff Alan # (ANC) 10*3/u L 1.78 5.38 2.53 FINAL [facility] ([facility]), [address], [address] [place] [address] 04/11 CBC w/ auto diff LY # 10*3/u L 1.32 3.57 0.70 Low FINAL [facility] ([facility]), [address], [address] [place] [address] 04/11 CBC w/ auto diff MO # 10*3/u L 0.3 0.82 0.40 FINAL [facility] ([facility]), [address], [address] [place] [address] 04/11 CBC w/ auto diff EO # 10*3/u lL 0.04 0.54 0.17 FINAL [facility] ([facility]), [address], [address] [place], [place] [address] 04/11 CBC w/ auto diff BA # 10*3/u L 0.01 0.08 0.01 FINAL [facility] ([facility]), [address], [address] [place] [address] 04/11 CBC w/ auto diff Alan % % 34.0 67.9 66.3 FINAL [facility] ([facility]), [address], [address] [place] [address] 04/11 CBC w/ auto diff LY % % 21.8 53.1 18.4 Low FINAL [facility] ([facility]), [address], [address] [place] [address] 04/11 CBC w/ auto diff MO % % 5.3 12.2 10.5 FINAL [facility] ([facility]), [address], [address] [place] [address] 04/11 CBC w/ auto diff EO % % 0.8 7.0 4.5 FINAL [facility] (EGT), [address], [address] [place] [address] 04/11 CBC w/ auto diff BA % % 0.2 1.2 0.3 FINAL [facility] (T), [address], [address] [place] [address] 04/11 CBC w/ auto diff RBC 10*6/u L 4.63 6.08 3.66 Low FINAL [facility] (T), [address], [address] [place] [address] 04/11 CBC w/ auto diff HGB g/dL 13.7 17.5 11.4 Low FINAL [facility] (T), [address], [address] [place] [address] 04/11 CBC w/ auto diff HCT % 40.1 51.0 34.8 Low FINAL [facility] (T), [address], [address] [place] [address] 04/11 CBC w/ auto diff MCV fL 79.0 92.2 95.1 High FINAL [facility] (T), [address], [address] [place] [address] 04/11 CBC w/ auto diff MCH pg 25.7 32.2 31.1 FINAL [facility] ([facility]), [address], [address] [place] [address] 04/11 CBC w/ auto diff MCHC g/dL 32.3 36.5 32.8 FINAL [facility] (T), [address], [address] [place] [address] 04/11 CBC w/ auto diff RDW-C V, % % 11.6 14.4 13.3 FINAL [facility] (T), [address], [address] [place] [address] 04/11 CBC w/ auto diff PLT 10*3/u L 163.0 337.0 183.0 FINAL Shayne Almontekathleen [facility] [address], [address] [facility] [address] 07/11 CMP - Core Lab Sodiu m mmol/L 136.0 145.0 143 FINAL Milvia [facility] [place] ([facility]), [address] [place] [address] 07/11 CMP - Core Lab Potas sium mmol/L 3.4 5.1 4.8 [facility] [address] [place] [address] 07/11 CMP - Core Lab Chlor naif mmol/L 98.0 107.0 105 [facility]), [address] [place] [address] 07/11 CMP - Core Lab CO2 mmol/L 20.0 31.0 29.5 [facility]), [address] [place] [address] 07/11 CMP - Core Lab Anion gap, mmol/ L mmol/L 4.0 15.0 8.5 FINAL Milvia [facility] ([facility]), [address] [place] [address] [place] [address] 07/11 CMP - Core Lab BUN mg/dL 9.0 23.0 19 FINAL Milvia [facility] [place] ([facility]), [address] [place] [address] [place] [address] 07/11 CMP - Core Lab Creat inine mg/dL 0.73 1.18 1.02 FINAL Milvia [facility] [place] ([facility]), [address] [place] [address] 07/11 CMP - Core Lab BUN/C reati nine ratio 0.0 25.0 18.6 [facility]AL [facility] [place] ([facility]), [address] [place] [address] 07/11 CMP - Core Lab eGFR, mL/mi n/1.7 3 mL/min /1.73m >60.0 [facility]AL [facility] [place] ([facility]), [address] [place] [address] [place] [address] 07/11 CMP - Core Lab Gluco se mg/dL 74.0 106.0 99 FINAL Milvia [facility] ([facility]), [address] [place] [address] [place] [address] 07/11 CMP - Core Lab Calci um mg/dL 8.7 10.6 10.1 [facility]), [address] [place] [address] [place] [address] 07/11 CMP - Core Lab Album in g/dL 3.4 5.0 3.8 FINAL Milvia [facility] ([facility]), [address] [place] [address] [place] [address] 07/11 CMP - Core Lab Total prote in g/dL 5.7 8.2 6.6 FINAL Milvia [facility] ([facility]), [address] [place] [address] [place] [address] 07/11 CMP - Core Lab A/G ratio 1.0 2.0 1.4 [facility]AL [facility]), [address] [place] [address] [place] [address] 07/11 CMP - Core Lab Alkal ine phosp hatas e U/L 46.0 116.0 36 Low [facility]AL [facility]), [address] [place] [address] [place] [address] 07/11 CMP - Core Lab ALT/S GPT U/L 10.0 49.0 21 [facility]), [address] [place] [address] [place] [address] 07/11 CMP - Core Lab AST/S GOT U/L 0.0 34.0 23 [facility]AL [facility] [place] ([facility]), [address] [place] [address] [place] [address] 07/11 CMP - Core Lab Bilir ubin, total mg/dL 0.3 1.2 0.4 FINAL [facility] [place] ([facility]), [address] [facility] [address] 07/11 CBC w/ auto diff WBC 10*3/u L 4.2 9.1 5.0 FINAL Milvia Johnson [facility] [address], [address] [place] [address] 07/11 CBC w/ auto diff Alan # (ANC) 10*3/u L 1.78 5.38 3.34 FINAL Milvia Johnson [facility] ([facility]), [address], [address] [place] [address] 07/11 CBC w/ auto diff LY # 10*3/u L 1.32 3.57 0.98 Low FINAL Milvia Johnson [facility] ([facility]), [address], [address] [place] [address] 07/11 CBC w/ auto diff MO # 10*3/u L 0.3 0.82 0.41 FINAL Milvia Johnson [facility] ([facility]), [address], [address] [place] [address] 07/11 CBC w/ auto diff EO # 10*3/u lL 0.04 0.54 0.24 FINAL Milvia Johnson [facility] ([facility]), [address], [address] [place] [address] 07/11 CBC w/ auto diff BA # 10*3/u L 0.01 0.08 0.03 FINAL Milvia Johnson [facility]), [address], [address] [place] [address] 07/11 CBC w/ auto diff Alan % % 34.0 67.9 66.8 FINAL Milvia Johnson [facility] [place] (T), [address], [address] [place] [address] 07/11 CBC w/ auto diff LY % % 21.8 53.1 19.6 Low FINAL [facility] ([facility]), [address], [address] [place] [address] 07/11 CBC w/ auto diff MO % % 5.3 12.2 8.2 FINAL Milvia Johnson [facility] ([facility]), [address], [address] [place] [address] 07/11 CBC w/ auto diff EO % % 0.8 7.0 4.8 FINAL [facility] [address], [address] [place] [address] 07/11 CBC w/ auto diff BA % % 0.2 1.2 0.6 FINAL [facility] [address], [address] [place] [address] 07/11 CBC w/ auto diff RBC 10*6/u L 4.63 6.08 3.97 Low FINAL [facility] [address], [address] [place] [address] 07/11 CBC w/ auto diff HGB g/dL 13.7 17.5 11.9 Low FINAL [facility] [address], [address] [place] [address] 07/11 CBC w/ auto diff HCT % 40.1 51.0 36.6 Low FINAL [facility] [address], [address] [place] [address] 07/11 CBC w/ auto diff MCV fL 79.0 92.2 92.2 FINAL [facility] ([facility] [address], [address] [place] [address] 07/11 CBC w/ auto diff MCH pg 25.7 32.2 30.0 FINAL [facility] ([facility] [address], [address] [place] [address] 07/11 CBC w/ auto diff MCHC g/dL 32.3 36.5 32.5 FINAL [facility] ([facility] [address], [address] [place] [address] 07/11 CBC w/ auto diff RDW-C V, % % 11.6 14.4 13.6 FINAL [facility] ([facility]), [address], [address] [facility] [address] 07/11 CBC w/ auto diff PLT 10*3/u L 163.0 337.0 180 FINAL [facility] [address], [address] [facility] [address] 07/11 PSA, total ng/mL < 0.04 FINAL Milvia [facility] [place] ([facility]), [address] [place] [address] 10/02 CMP - Core Lab Sodiu m mmol/L 136.0 145.0 140 FINAL Shayne [facility] ([facility]), [address] [place] [address] 10/02 CMP - Core Lab Potas sium mmol/L 3.4 5.1 4.3 FINAL [facility] ([facility]), [address] [place] [address] [place] [address] 10/02 CMP - Core Lab Chlor naif mmol/L 98.0 107.0 105 FINAL [facility] ([facility]), [address] [place] [address] [place] [address] 10/02 CMP - Core Lab CO2 mmol/L 20.0 31.0 25.1 FINAL [facility] ([facility]), [address] [place] [address] [place] [address] 10/02 CMP - Core Lab Anion gap, mmol/ L mmol/L 4.0 15.0 9.9 FINAL [facility] [place] ([facility]), [address] [place] [address] [place] [address] 10/02 CMP - Core Lab BUN mg/dL 9.0 23.0 29 High FINAL [facility] ([facility]), [address] [place] [address] [place] [address] 10/02 CMP - Core Lab Creat inine mg/dL 0.73 1.18 1.07 FINAL [facility] ([facility]), [address] [place] [address] 10/02 CMP - Core Lab BUN/C reati nine ratio 0.0 25.0 27.1 High FINAL [facility] ([facility]), [address] [place] [address] 10/02 CMP - Core Lab eGFR, mL/mi n/1.7 3 mL/min /1.73m >60.0 FINAL [facility] ([facility]), [address] [place] [address] 10/02 CMP - Core Lab Gluco se mg/dL 74.0 106.0 93 FINAL [facility] ([facility]), [address] [place] [address] 10/02 CMP - Core Lab Calci um mg/dL 8.7 10.6 9.9 FINAL [facility] ([facility]), [address] [place] [address] 10/02 CMP - Core Lab Album in g/dL 3.4 5.0 4.1 FINAL [facility] ([facility]), [address] [place] [address] 10/02 CMP - Core Lab Total prote in g/dL 5.7 8.2 6.6 FINAL [facility] ([facility]), [address] [place] [address] [place] [address] 10/02 CMP - Core Lab A/G ratio 1.0 2.0 1.6 FINAL [facility] ([facility]), [address] [place] [address] [place] [address] 10/02 CMP - Core Lab Alkal ine phosp hatas e U/L 46.0 116.0 39 Low FINAL [facility] ([facility]), [address] [place] [address] [place] [address] 10/02 CMP - Core Lab ALT/S GPT U/L 10.0 49.0 22 FINAL [facility] ([facility]), [address] [place] [address] [place] [address] 10/02 CMP - Core Lab AST/S GOT U/L 0.0 34.0 22 FINAL [facility] ([facility]), [address] [facility] [address] 10/02 CMP - Core Lab Bilir ubin, total mg/dL 0.3 1.2 0.4 FINAL [facility] [place] ([facility]), [address] [facility] [address] 10/02 PSA, total ng/mL < 0.04 FINAL [facility] ([facility]), [address] [facility] [address] 10/02 CBC w/ auto diff WBC 10*3/u L 4.2 9.1 4.8 FINAL [facility] (T), [address], [address] [place] [address] 10/02 CBC w/ auto diff Alan # (ANC) 10*3/u L 1.78 5.38 3.21 FINAL [facility] (T), [address], [address] [place] [id number] 10/02 CBC w/ auto diff LY # 10*3/u L 1.32 3.57 0.78 Low FINAL [facility] (T), [address], [address] [facility] [address] 10/02 CBC w/ auto diff MO # 10*3/u L 0.3 0.82 0.54 FINAL [facility] ([facility]), [address], [address] [facility] [address] 10/02 CBC w/ auto diff EO # 10*3/u lL 0.04 0.54 0.27 FINAL [facility] (T), [address], [address] [facility] [address] 10/02 CBC w/ auto diff BA # 10*3/u L 0.01 0.08 0.02 FINAL [facility] (T), [address], [address] [facility] [address] 10/02 CBC w/ auto diff Alan % % 34.0 67.9 66.6 FINAL Shayne [facility] ([facility]), [address], [address] [place] [address] 10/02 CBC w/ auto diff LY % % 21.8 53.1 16.2 Low FINAL [facility] ([facility]), [address], [address] [place] [address] 10/02 CBC w/ auto diff MO % % 5.3 12.2 11.2 FINAL [facility] ([facility]), [address], [address] [place] [address] 10/02 CBC w/ auto diff EO % % 0.8 7.0 5.6 FINAL [facility] ([facility]), [address], [address] [place] [address] 10/02 CBC w/ auto diff BA % % 0.2 1.2 0.4 FINAL [facility] ([facility]), [address], [address] [place] [address] 10/02 CBC w/ auto diff RBC 10*6/u L 4.63 6.08 3.84 Low FINAL [facility] ([facility]), [address], [address] [place] [address] 10/02 CBC w/ auto diff HGB g/dL 13.7 17.5 11.4 Low FINAL [facility] ([facility]GT), [address], [address] [place] [address] 10/02 CBC w/ auto diff HCT % 40.1 51.0 34.7 Low FINAL [facility] ([facility]), [address], [address] [place] [address] 10/02 CBC w/ auto diff MCV fL 79.0 92.2 90.4 FINAL [facility] ([facility]), [address], [address] [place] [address] 10/02 CBC w/ auto diff MCH pg 25.7 32.2 29.7 FINAL [facility] ([facility]), [address], [address] [place] [address] 10/02 CBC w/ auto diff MCHC g/dL 32.3 36.5 32.9 FINAL [facility] ([facility]), [address] [facility], [address] [facility] [address] 10/02 CBC w/ auto diff RDW-C V, % % 11.6 14.4 13.7 FINAL [facility] ([facility]), [address] [facility], [address] [facility] [address] 10/02 CBC w/ auto diff PLT 10*3/u L 163.0 337.0 174 FINAL [facility] ([facility]), [address] [facility], [address] [facility] [address] Medications Date Name Route Dose Frequency Instructions [...] Print Location: Unknown Date/Time Printed: 10/11/2024 10:35 ([facility]) Patient: RICHI CRUZ Sex: Male : [...] mg Amount in mL: 1.5 Pharmacy dispense: [facility]: [phone] Dispense/Waste: 22.5/0 mg Given Dose/Discard: 22.5/0 mg Admin Details: Injection Location: Left-Dorsogluteal Time: 10:26 Double Checked By: Rachel Ashley RN on 10/02/2024 10:25 and Aziza Gay RN on 10/02/2024 10:25 * Nurse Note for: 11-JUL-24 [facility] Nurse Note Print Location: Unknown Date/Time Printed: 10/11/2024 10:35 ([facility]) Patient: RICHI CRUZ Sex: Male : [...] Print Location: Unknown Date/Time Printed: 10/11/2024 10:35 ([facility]) Patient: RICHI CRUZ Sex: Male : [...] 10:35 Medication Administration : Incident to: Shayne Csatellanos MD Leuprolide D1 Q3M Hormone Therapy Leuprolide IM, 22.5 mg intramuscularly every 3 months, Allow Substitution GIVEN: 22.5 mg Pharmacy plan: Dispense/Waste: 22.5/0 mg Pharmacy dispense: [facility]: [phone] Dispense/Waste: 22.5/0 mg Given Dose/Discard: 22.5/0 mg Admin Details: Injection Location: Right-Dorsogluteal, Comments: x 1 Time: 10:15 Double Checked By: Aislinn Blair RN on 04/11/2024 10:06 and Edie Blanco RN on 04/11/2024 10:06 * Nurse Note for: 11-JAN-24 [facility] Nurse Note Print Location: Unknown Date/Time Printed: 10/11/2024 10:35 ([facility]) Patient: RICHI CRUZ Sex: Male : [...] Pharmacy plan: Dispense/Waste: 22.5/0 mg Pharmacy dispense: [facility]: [id number] Dispense/Waste: 22.5/0 mg Given Dose/Discard: 22.5/0 mg Admin Details: Injection Location: Right-Dorsogluteal, Comments: x 1 Time: 10:03 Double Checked By: Edie Blanco RN on 01/11/2024 10:03 and Trang Dukes RN on 01/11/2024 10:03 * Nurse Note for: 11-OCT-23 [facility] Nurse Note Print Location: Unknown Date/Time Printed: 10/11/2024 10:35 ([facility]) Patient: RICHI CRUZ Sex: Male : [...] Pharmacy plan: Dispense/Waste: 22.5/0 mg Pharmacy dispense: [facility]: [id number] Dispense/Waste: 22.5/0 mg Given Dose/Discard: 22.5/0 mg Admin Details: Injection Location: Right-Dorsogluteal, Comments: Injection x 1. Time: 11:30 Double Checked By: Aziza Gay RN on 10/11/2023 11:28 and Emily Lujan RN on 10/11/2023 11:30 * Nurse Note for: 11-JUL-23 [facility] Nurse Note Print Location: Unknown Date/Time Printed: 10/11/2024 10:35 ([facility]) Patient: RICHI CRUZ Sex: Male : [...] Pharmacy plan: Dispense/Waste: 22.5/0 mg Pharmacy dispense: [facility]: [id number] Dispense/Waste: 22.5/0 mg Given Dose/Discard: 22.5/0 mg Admin Details: Injection Location: Right-Dorsogluteal Time: 10:20 Double Checked By: Trang Dukes RN on 07/11/2023 10:05 and Edie Blanco RN on 07/11/2023 11:01 * Nurse Note for: 12-APR-23 [facility] Nurse Note Print Location: Unknown Date/Time Printed: 10/11/2024 10:35 ([facility]) Patient: RICHI CRUZ Sex: Male : [...] Pharmacy plan: Dispense/Waste: 22.5/0 mg Pharmacy dispense: [facility]: [id number] Dispense/Waste: 22.5/0 mg Given Dose/Discard: 22.5/0 mg Admin Details: Injection Location: Right-Dorsogluteal Time: 09:15 Double Checked By: Lily Raphael RN on 04/12/2023 09:27 and Emily Lujan RN on 04/12/2023 09:33 * Nurse Note for: 10-JAN-23 [facility] Nurse Note Print Location: Unknown Date/Time Printed: 10/11/2024 10:35 ([facility]) Patient: RICHI CRUZ Sex: Male : [...] Pharmacy plan: Dispense/Waste: 22.5/0 mg Pharmacy dispense: [facility]: [phone] Dispense/Waste: 22.5/0 mg Given Dose/Discard: 22.5/0 mg Admin Details: Injection Location: Right-Dorsogluteal, Comments: injection x1 Time: 11:14 Double Checked By: Denisse Harris RN on 01/10/2023 11:11 and Marlen Lee on 01/10/2023 11:18 * Nurse Note for: 10-OCT-22 [facility] Nurse Note Print Location: Unknown Date/Time Printed: 10/11/2024 10:35 ([facility]) Patient: RICHI CRUZ Sex: Male : [...] Pharmacy plan: Dispense/Waste: 22.5/0 mg Pharmacy dispense: [facility]: [id number] Dispense/Waste: 22.5/0 mg Given Dose/Discard: 22.5/0 mg Admin Details: Injection Location: Right-Dorsogluteal, Comments: x 1 IM Time: 10:23 Checked By: Edie Blanco RN on 10/10/2022 10:25 * Nurse Note for: 07-JUL-22 [facility] Nurse Note Print Location: Unknown Date/Time Printed: 10/11/2024 10:35 ([facility]) Patient: RICHI CRUZ Sex: Male : [...] Pharmacy plan: Dispense/Waste: 22.5/0 mg Pharmacy dispense: [facility]: [id number] Dispense/Waste: 22.5/0 mg Given Dose/Discard: 22.5/0 mg Admin Details: Injection Location: Right-Dorsogluteal, Comments: Injection x 1. Time: 10:27 Double Checked By: Emily Lujan RN on 07/07/2022 10:49 and Aziza Gay RN on 07/07/2022 12:46 * Nurse Note for: 07-APR-22 [facility] Nurse Note Print Location: Unknown Date/Time Printed: 10/11/2024 10:35 ([facility]) Patient: RICHI CRUZ Sex: Male : [...] Pharmacy plan: Dispense/Waste: 22.5/0 mg Pharmacy dispense: [facility]: [phone] Dispense/Waste: 22.5/0 mg Given Dose/Discard: 22.5/0 mg Admin Details: Injection Location: Left-Dorsogluteal Time: 09:43 Double Checked By: Denisse Coleman RN on 04/07/2022 09:41 and Emily Lujan RN on 04/07/2022 09:49 * Nurse Note for: 05-JAN-22 [facility] Nurse Note Print Location: Unknown Date/Time Printed: 10/11/2024 10:35 ([facility]) Patient: RICHI CRUZ Sex: Male : [...] Pharmacy plan: Dispense/Waste: 22.5/0 mg Pharmacy dispense: [facility]: [id number] Dispense/Waste: 22.5/0 mg Given Dose/Discard: 22.5/0 mg Admin Details: Injection Location: Right-Dorsogluteal, Comments: x 1 Time: 11:01 Double Checked By: Edie Blanco RN on 01/05/2022 15:07 and Nikole Ornelas RN on 01/05/2022 16:03 * Nurse Note for: 06-OCT-21 [facility] Nurse Note Print Location: Unknown Date/Time Printed: 10/11/2024 10:35 ([facility]) Patient: RICHI CRUZ Sex: Male : [...] Pharmacy plan: Dispense/Waste: 22.5/0 mg Pharmacy dispense: [facility]: [id number] Dispense/Waste: 22.5/0 mg Given Dose/Discard: 22.5/0 mg Admin Details: Injection Location: Right-Dorsogluteal, Comments: x1 Time: 11:09 Double Checked By: Emily Lujan RN on 10/06/2021 13:17 and Isaura Hunter RN on 10/06/2021 13:18 * Nurse Note for: 06-JUL-21 [facility] Nurse Note Print Location: Unknown Date/Time Printed: 10/11/2024 10:35 ([facility]) Patient: RICHI CRUZ Sex: Male : [...] Pharmacy plan: Dispense/Waste: 22.5/0 mg Pharmacy dispense: [facility]: [phone] Dispense/Waste: 22.5/0 mg Given Dose/Discard: 22.5/0 mg Admin Details: Injection Location: Right-Dorsogluteal, Comments: 1 injection Time: 11:08 Checked By: Isaura Hunter RN on 07/06/2021 16:19 * Nurse Note for: 08-APR-21 [facility] Nurse Note Print Location: Unknown Date/Time Printed: 10/11/2024 10:35 ([facility]) Patient: RICHI CRUZ Sex: Male : [...] Pharmacy plan: Dispense/Waste: 22.5/0 mg Pharmacy dispense: [facility]: [id number] Dispense/Waste: 22.5/0 mg Given Dose/Discard: 22.5/0 mg Admin Details: Injection Location: Left-Dorsogluteal, Comments: X1 Time: 10:13 Checked By: Royce Manzanares RN on 04/08/2021 10:13 * Nurse Note for: 07-JAN-21 [facility] Nurse Note Print Location: Unknown Date/Time Printed: 10/11/2024 10:35 ([facility]) Patient: RICHI CRUZ Sex: Male : [...] Pharmacy plan: Dispense/Waste: 22.5/0 mg Pharmacy dispense: [facility]: [id number] Dispense/Waste: 22.5/0 mg Given Dose/Discard: 22.5/0 mg Admin Details: Injection Location: Right-Dorsogluteal Time: 11:30 Checked By: Tiffanie Draper RN on 01/07/2021 12:31 * Nurse Note for: 08-OCT-20 [facility] Nurse Note Print Location: Unknown Date/Time Printed: 10/11/2024 10:35 ([facility]) Patient: RICHI CRUZ Sex: Male : [...] Pharmacy plan: Dispense/Waste: 22.5/0 mg Pharmacy dispense: [facility]: [phone] Dispense/Waste: 22.5/0 mg Given Dose/Discard: 22.5/0 mg Admin Details: Injection Location: Left-Dorsogluteal Time: 11:22
--- OUTSIDE RECORDS SUMMARY | 2024-10-11 10:37 | XMS_ITS ---
Author Name Interface, [email or web address] lity Address [address] [place] [address] [facility] Address [address] [place] [address] Allergies and Adverse Reactions Plan Reason for Visit Encounters Immunizations Diagnostic Results Medications Problems Vital Signs Notes Section
--- OUTSIDE RECORDS SUMMARY | 2024-10-11 10:37 | XMS_ITS | Clinical Summary ---
Author Organization [facility] Address [address] [place] [id number] Care Team Providers Care Customer Sales Distributor Name Role Phone Mary Anne Parekh MD, [facility] Primary Care Provider + Source Comments This information has been disclosed to you from confidential records protectedfrom disclosure by state law. You shall make no further disclosure of thisinformation without the specific, written, and informed release of theindividual to whom it pertains, or as otherwise permitted by law. A generalauthorization for the release of medical or other information is not sufficientfor the purposes of therelease of HIV test results or diagnoses. [id number] Allergies No known active allergies Medications NEXIUM 40 mg capsule 05/24/2012 Active oxyCODONE (ROXICODONE) 5 MG immediate release tablet 06/27/2012 Active ranitidine (ZANTAC) 150 MG tablet 06/26/2012 Active venlafaxine (EFFEXOR) 75 MG tablet 05/24/2012 Active Active Problems Problem Noted Date Diagnosed Date Basal cell carcinoma of back 09/13/2012 Benign neoplasm of skin 09/13/2012 Overview (12/04/2014): ICD-10 Transition Other seborrheic keratosis 09/13/2012 Family History Medical History Relation Comments Melanoma Mother Relation Status Comments Mother Social History Tobacco Use Types Packs/Day Years Used Date Smoking Tobacco: Never Alcohol Use Standard Drinks/Week Comments Yes 0 (1 standard drink = 0.6 oz pur e alcohol) Sex and Gender Information Value Date Recorded Sex Assigned at Not on file Legal Sex Male 4:12 PM EST Gender Identity Not on file Sexual Orientation Not on file Plan of Treatment Not on file [place] [id number] Care Teams Customer Sales Distributor Relationship Specialty Start Date End Date Logan North MD [address] [id number] PCP - General Family Medicine 06/20/12
--- OUTSIDE RECORDS SUMMARY | 2024-10-11 10:37 | XMS_ITS ---
Author Name Interface, [id number] lity Address [address] [place] [address] [facility] Address [address] [place] [address] Allergies and Adverse Reactions Plan Reason for Visit Encounters Diagnostic Results Medications Problems Vital Signs Notes Section
--- OUTSIDE RECORDS SUMMARY | 2024-10-11 10:37 | XMS_ITS ---
Author Name Interface, [id number] lity Address [address] [place] [address] [facility] Address [address] [place] [address] Allergies and Adverse Reactions Medication/Group Name Reaction Severity Date No known allergies Plan Date Type Value 10/02/2024 APPOINTMENT INJECTION 15 MIN 10/02/2024 APPOINTMENT LAB 15 MIN 10/02/2024 APPOINTMENT OV 15 MIN 07/11/2024 APPOINTMENT INJECTION 15 MIN 07/11/2024 APPOINTMENT LAB 15 MIN 07/11/2024 APPOINTMENT OV 15 MIN 07/11/2024 LABORDER CBC w/ auto diff 07/11/2024 LABORDER CMP - Core Lab 07/11/2024 LABORDER PSA, total 10/02/2024 LABORDER CBC w/ auto diff 10/02/2024 LABORDER PSA, total 10/02/2024 LABORDER CMP - Core Lab Reason for Visit OV 15 MIN Encounters Date Name 07/11/2024 Anemia 07/11/2024 Essential hypertensi on (disorder) 07/11/2024 Prostate cancer in s itu 07/11/2024 Secondary malignant neoplasm of bone (disorder) Diagnostic Results Date Type Test Units Lower Limit Upper Limit Result Flag Comments Status Ordered By Specimen Source Lab Address 07/11 CBC w/ auto diff WBC 10*3/u L 4.2 9.1 5.0 FINAL Milvia Johnson [facility] ([facility]), [address], [address] [facility] [address] 07/11 CBC w/ auto diff Alan # (ANC) 10*3/u L 1.78 5.38 3.34 FINAL Milvia Johnson [facility] ([facility]), [address], [address] [facility] [address] 07/11 CBC w/ auto diff LY # 10*3/u L 1.32 3.57 0.98 Low FINAL Milvia Liming [facility] ([facility]), [address], [address] [place] [address] 07/11 CBC w/ auto diff MO # 10*3/u L 0.3 0.82 0.41 FINAL Milvia Liming [facility] ([facility]), [address], [address] [place] [address] 07/11 CBC w/ auto diff EO # 10*3/u lL 0.04 0.54 0.24 FINAL Milvia Liming [facility] ([facility]), [address], [address] [place] [address] 07/11 CBC w/ auto diff BA # 10*3/u L 0.01 0.08 0.03 FINAL Milvia Liming [facility] ([facility]), [address], [address] [place] [address] 07/11 CBC w/ auto diff Alan % % 34.0 67.9 66.8 FINAL Milvia Liming [facility] ([facility]), [address], [address] [place] [address] 07/11 CBC w/ auto diff LY % % 21.8 53.1 19.6 Low FINAL Milvia Liming [facility] ([facility]), [address], [address] [place] [address] 07/11 CBC w/ auto diff MO % % 5.3 12.2 8.2 FINAL Milvia Liming [facility] ([facility]), [address], [address] [place] [address] 07/11 CBC w/ auto diff EO % % 0.8 7.0 4.8 FINAL Milvia Liming [facility] ([facility]), [address], [address] [place] [address] 07/11 CBC w/ auto diff BA % % 0.2 1.2 0.6 FINAL Milvia Liming [facility] ([facility]), [address], [address] [place] [address] 07/11 CBC w/ auto diff RBC 10*6/u L 4.63 6.08 3.97 Low [facility] [address], [address] [place] [address] 07/11 CBC w/ auto diff HGB g/dL 13.7 17.5 11.9 Low [facility] [address], [address] [place] [address] 07/11 CBC w/ auto diff HCT % 40.1 51.0 36.6 Low FINAL Milvia [facility] ([facility]), [address], [address] [place] [address] 07/11 CBC w/ auto diff MCV fL 79.0 92.2 92.2 FINAL Milvia [facility] ([facility]), [address], [address] [place] [address] 07/11 CBC w/ auto diff MCH pg 25.7 32.2 30.0 FINAL Milvia [facility] ([facility]), [address], [address] [place] [address] 07/11 CBC w/ auto diff MCHC g/dL 32.3 36.5 32.5 FINAL Milvia [facility] ([facility]), [address], [address] [place] [address] 07/11 CBC w/ auto diff RDW-C V, % % 11.6 14.4 13.6 FINAL Milvia [facility] ([facility]), [address], [address] [place] [address] 07/11 CBC w/ auto diff PLT 10*3/u L 163.0 337.0 180 FINAL Milvia [facility] ([facility]), [address], [address] [place] [address] 07/11 PSA, total ng/mL < 0.04 FINAL Milvia [facility] ([facility]), [address] [place] [address] 07/11 CMP - Core Lab Sodiu m mmol/L 136.0 145.0 143 FINAL Milvia [facility] ([facility]), [address] [place] [address] [place] [address] 07/11 CMP - Core Lab Potas sium mmol/L 3.4 5.1 4.8 FINAL [facility]), [address] [place] [address] [place] [address] 07/11 CMP - Core Lab Chlor naif mmol/L 98.0 107.0 105 FINAL Milvia [facility] ([facility]), [address] [place] [address] 07/11 CMP - Core Lab CO2 mmol/L 20.0 31.0 29.5 FINAL [facility]), [address] [place] [address] 07/11 CMP - Core Lab Anion gap, mmol/ L mmol/L 4.0 15.0 8.5 FINAL [facility]), [address] [place] [address] 07/11 CMP - Core Lab BUN mg/dL 9.0 23.0 19 FINAL [facility]), [address] [place] [address] 07/11 CMP - Core Lab Creat inine mg/dL 0.73 1.18 1.02 FINAL [facility]), [address] [place] [address] [place] [address] 07/11 CMP - Core Lab BUN/C reati nine ratio 0.0 25.0 18.6 FINAL Milvia [facility] ([facility]), [address] [place] [address] [place] [address] 07/11 CMP - Core Lab eGFR, mL/mi n/1.7 3 mL/min /1.73m >60.0 FINAL [facility]), [address] [place] [address] [place] [address] 07/11 CMP - Core Lab Gluco se mg/dL 74.0 106.0 99 FINAL Milvia [facility] ([facility]), [address] [place] [address] [place] [address] 07/11 CMP - Core Lab Calci um mg/dL 8.7 10.6 10.1 FINAL [facility]), [address] [place] [address] [place] [address] 07/11 CMP - Core Lab Album in g/dL 3.4 5.0 3.8 FINAL Milvia [facility] ([facility]), [address] [place] [address] [place] [address] 07/11 CMP - Core Lab Total prote in g/dL 5.7 8.2 6.6 FINAL [facility]), [address] [place] [address] [place] [address] 07/11 CMP - Core Lab A/G ratio 1.0 2.0 1.4 FINAL [facility]), [address] [place] [address] [place] [address] 07/11 CMP - Core Lab Alkal ine phosp hatas e U/L 46.0 116.0 36 Low FINAL [facility]), [address] [place] [address] [place] [address] 07/11 CMP - Core Lab ALT/S GPT U/L 10.0 49.0 21 FINAL [facility]), [address] [place] [address] [place] [address] 07/11 CMP - Core Lab AST/S GOT U/L 0.0 34.0 23 FINAL Milvia [facility] ([facility]), [address] [place] [address] [place] [address] 07/11 CMP - Core Lab Bilir ubin, total mg/dL 0.3 1.2 0.4 FINAL [facility]), [address] [place] [address] [place] [address] 10/02 CBC w/ auto diff WBC 10*3/u L 4.2 9.1 4.8 FINAL [facility] ([facility]), [address], [address] [place] [address] 10/02 CBC w/ auto diff Alan # (ANC) 10*3/u L 1.78 5.38 3.21 FINAL [facility] ([facility]), [address], [address] [place] [address] 10/02 CBC w/ auto diff LY # 10*3/u L 1.32 3.57 0.78 Low FINAL [facility] ([facility]), [address], [address] [place] [address] 10/02 CBC w/ auto diff MO # 10*3/u L 0.3 0.82 0.54 FINAL [facility] ([facility]), [address], [address] [place] [address] 10/02 CBC w/ auto diff EO # 10*3/u lL 0.04 0.54 0.27 FINAL [facility] ([facility]), [address], [address] [place] [address] 10/02 CBC w/ auto diff BA # 10*3/u L 0.01 0.08 0.02 FINAL [facility] ([facility]), [address], [address] [place] [address] 10/02 CBC w/ auto diff Alan % % 34.0 67.9 66.6 FINAL [facility] ([facility]), [address], [address] [place] [address] 10/02 CBC w/ auto diff LY % % 21.8 53.1 16.2 Low FINAL [facility] ([facility]), [address], [address] [place] [address] 10/02 CBC w/ auto diff MO % % 5.3 12.2 11.2 FINAL [facility] ([facility]), [address], [address] [place] [address] 10/02 CBC w/ auto diff EO % % 0.8 7.0 5.6 FINAL [facility] ([facility]), [address], [address] [place] [address] 10/02 CBC w/ auto diff BA % % 0.2 1.2 0.4 FINAL [facility] ([facility]), [address], [address] [place] [address] 10/02 CBC w/ auto diff RBC 10*6/u L 4.63 6.08 3.84 Low FINAL [facility] ([facility]), [address], [address] [place] [address] 10/02 CBC w/ auto diff HGB g/dL 13.7 17.5 11.4 Low FINAL [facility] ([facility]), [address], [address] [place] [address] 10/02 CBC w/ auto diff HCT % 40.1 51.0 34.7 Low FINAL [facility] ([facility]), [address], [address] [place] [address] 10/02 CBC w/ auto diff MCV fL 79.0 92.2 90.4 FINAL [facility] ([facility]), [address], [address] [place] [address] 10/02 CBC w/ auto diff MCH pg 25.7 32.2 29.7 FINAL [facility] ([facility]), [address], [address] [place] [address] 10/02 CBC w/ auto diff MCHC g/dL 32.3 36.5 32.9 FINAL [facility] ([facility]), [address], [address] [place] [address] 10/02 CBC w/ auto diff RDW-C V, % % 11.6 14.4 13.7 FINAL [facility] ([facility]), [address], [address] [place] [address] 10/02 CBC w/ auto diff PLT 10*3/u L 163.0 337.0 174 FINAL [facility]), [address], [address] [facility] [address] 10/02 PSA, total ng/mL < 0.04 FINAL [facility] ([facility]), [address] [place] [address] 10/02 CMP - Core Lab Sodiu m mmol/L 136.0 145.0 140 FINAL [facility] ([facility]), [address] [place] [address] 10/02 CMP - Core Lab Potas sium mmol/L 3.4 5.1 4.3 FINAL [facility] ([facility]), [address] [place] [address] 10/02 CMP - Core Lab Chlor naif mmol/L 98.0 107.0 105 FINAL [facility] ([facility]), [address] [place] [address] 10/02 CMP - Core Lab CO2 mmol/L 20.0 31.0 25.1 FINAL [facility] ([facility]), [address] [place] [address] 10/02 CMP - Core Lab Anion gap, mmol/ L mmol/L 4.0 15.0 9.9 FINAL [facility] ([facility]), [address] [place] [address] [place] [address] 10/02 CMP - Core Lab BUN mg/dL 9.0 23.0 29 High FINAL [facility] ([facility]), [address] [place] [address] [place] [address] 10/02 CMP - Core Lab Creat inine mg/dL 0.73 1.18 1.07 FINAL [facility] ([facility]), [address] [place] [address] 10/02 CMP - Core Lab BUN/C reati nine ratio 0.0 25.0 27.1 High FINAL [facility] ([facility]), [address] [place] [address] 10/02 CMP - Core Lab eGFR, mL/mi n/1.7 3 mL/min /1.73m >60.0 FINAL [facility] ([facility]), [address] [place] [address] [place] [address] 10/02 CMP - Core Lab Gluco se mg/dL 74.0 106.0 93 FINAL [facility] ([facility]), [address] [place] [address] [place] [address] 10/02 CMP - Core Lab Calci um mg/dL 8.7 10.6 9.9 FINAL [facility] ([facility]), [address] [place] [address] [place] [address] 10/02 CMP - Core Lab Album in g/dL 3.4 5.0 4.1 FINAL [facility] ([facility]), [address] [place] [address] [place] [address] 10/02 CMP - Core Lab Total prote in g/dL 5.7 8.2 6.6 FINAL [facility] ([facility]), [address] [place] [address] [place] [address] 10/02 CMP - Core Lab A/G ratio 1.0 2.0 1.6 FINAL [facility] ([facility]), [address] [place] [address] [place] [address] 10/02 CMP - Core Lab Alkal ine phosp hatas e U/L 46.0 116.0 39 Low FINAL [facility] ([facility]), [address] [place] [address] [place] [address] 10/02 CMP - Core Lab ALT/S GPT U/L 10.0 49.0 22 FINAL [facility] ([facility]), [address] [place] [address] [place] [address] 10/02 CMP - Core Lab AST/S GOT U/L 0.0 34.0 22 FINAL [facility] ([facility]), [address] [place] [address] [place] [address] 10/02 CMP - Core Lab Bilir ubin, total mg/dL 0.3 1.2 0.4 FINAL [facility] ([facility]), [address] [place] [address] [place] [address] Medications Date Name Route Dose Frequency Instructions [...] Insomnia Active Vital Signs Date Type Value 07/11/2024 Body Temperature 97.80 07/11/2024 Heart Beat 71.00 07/11/2024 Intravascular Systolic 139 07/11/2024 Intravascular Diastolic 72 07/11/2024 Weight 181.00 07/11/2024 Height 64.00 07/11/2024 BSA 1.93 07/11/2024 Respiratory Rate 14.00 07/11/2024 Pain Scale 0.00 07/11/2024 BMI 31.07 Notes Section * [facility] Follow Up Patient Name: RICHI CRUZ Patient : 1950 Patient Primary Oncologist: Shayne Castellanos (Medical Oncology) Referring Physician: PATRICIA ROCHE Date of Service: 07/11/2024 Chief Complaint * 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, Stage IV (T1, N0, M1b, >= 8, < 10)-Clinical Disease Status: Evidence of metastatic disease; Disease State: Progressive disease; Metastatic Sites: Bone; Histopathologic Type: Adenocarcinoma; Bone Scan: Performed; Lillian Score-Primary: 5; Lillian Score-Secondary: 3; Clinton Status-Sum: 8; ) Problem List * 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, Stage IV (T1, N0, M1b, >= 8, < 10)-Clinical Disease Status: Evidence of metastatic disease; Disease State: Progressive disease; Metastatic Sites: Bone; Histopathologic Type: Adenocarcinoma; Bone Scan: Performed; Clinton Score-Primary: 5; Clinton Score-Secondary: 3; Lillian Status-Sum: 8; ) * Anemia * Depression * Essential hypertension (disorder) * Headache * History of transurethral resection of prostate * Insomnia * Secondary malignant neoplasm of bone (disorder) * Stool contents abnormal HPI Diagnosis Code Malignant neoplasm of prostate (HCC) C61 Abnormal radionuclide bone scan R94.8 Reactive depression F32.9 History of prostatectomy Z90.79 Secondary malignant neoplasm of bone (HCC) C79.51 Primary osteoarthritis of left knee M17.12 ?? Previous Therapies Current Therapy Leuprolide D1 Q3M Cycle Length: 91 Number Cycles: 38 Start: C5D1 on 12/13/2016 Assoc Dx: Prostate cancer in situ LOT: Other 07/09/2020 C19 D1 * Leuprolide IM, 22.5 mg [id number] Interval History Here for follow up and due for lupron. No new focal bone pains. Last PSA still undetectable. 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 Review of Systems Constitutional: ??No weight loss, No fever, No chills, No night sweats. ??Energy level good. Eyes: ??No impairment or change in vision ENT / Mouth: ??No pain, abnormal ulceration, bleeding, nasal drip or change in voice or hearing Cardiovascular: ??No chest pain, palpitations, new edema, or calf discomfort Respiratory: ??No pain, hemoptysis, change to breathing Breast: ??No pain, discharge, change in appearance or texture Gastrointestinal: ??No pain, cramping, jaundice, change to eating and bowel habits Urinary: ??No pain, bleeding or change in continence Genitalia: No pain, bleeding or discharge Musculoskeletal: ??No redness, pain, edema or weakness Skin: ??No pruritus, rash, change to nodules or lesions Neurologic: ??No discomfort, change in mental status, speech, sensory or motor activity Psychiatric: ??No change in concentration or change to affect or mood Endocrine: ??No hot flashes, increased thirst, or change to urine production Hematologic: No petechiae, ecchymosis or bleeding Lymphatic: ??No lymphadenopathy or lymphedema Allergy / Immunologic: ??No eczema, hives, frequent or recurrent infections Vital Signs Blood pressure: 139/72, Pulse: 71, Temperature: 97.8 F, Respirations: 14, O2 sat: , Pain Scale: 0, Height: 64 in, Weight: 181 lb, BSA: 1.93, BMI: 31.07 kg/m2 Physical Exam CONSTITUTIONAL: awake, alert, cooperative, no apparent distress?? EYES: pupils equal, round and reactive to light, sclera clear and conjunctiva normal ENT: Normocephalic, without obvious abnormality, atraumatic NECK:??supple, symmetrical, no jugular venous distension and no carotid bruits?? HEMATOLOGIC/LYMPHATIC: no cervical, supraclavicular or axillary lymphadenopathy?? LUNGS: no increased work of breathing and clear to auscultation?? CARDIOVASCULAR: regular rate and rhythm, normal S1 and S2, no murmur noted ABDOMEN: normal bowel sounds x 4, soft, non-distended, non-tender, no masses palpated, no hepatosplenomegaly?? MUSCULOSKELETAL: full range of motion noted, tone is normal NEUROLOGIC: awake, alert, oriented to name, place and time. Motor skills grossly intact.?? SKIN: Normal skin color, texture, turgor and no jaundice. appears intact?? EXTREMITIES: no LE edema?? Labs CBC Lab Results 07/11/2024 04/11/2024 01/11/2024 10/11/2023 07/11/1904/12/2023 CBC WBC x 10^3/uL 5.0 3.8 (L) 5.7 4.4 5.3 4.7 RBC x 10^6/uL 3.97 (L) 3.66 (L) 4.78 4.04 (L) 4.05 (L) 3.84 (L) HGB g/dL 11.9 (L) 11.4 (L) 14.4 12.4 (L) 12.1 (L) 11.4 (L) HCT % 36.6 (L) 34.8 (L) 43.0 38.0 (L) 37.2 (L) 35.6 (L) MCV fL 92.2 95.1 (H) 90.0 94.1 (H) 91.9 92.7 (H) MCH pg 30.0 31.1 30.1 30.7 29.9 29.7 MCHC g/dL 32.5 32.8 33.5 32.6 32.5 32.0 (L) RDW-CV, % 13.6 13.3 13.2 13.9 13.6 13.7 PLT x 10^3/uL 180 183.0 191.0 174.0 166.0 177.0 Alan % 66.8 66.3 66.1 71.0 (H) 68.3 (H) 68.9 (H) LY % 19.6 (L) 18.4 (L) 20.4 (L) 17.0 (L) 18.1 (L) 18.6 (L) MO % 8.2 10.5 8.6 8.3 8.9 8.9 EO % 4.8 4.5 4.4 3.2 4.5 3.2 BA % 0.6 0.3 0.5 0.5 0.2 0.4 Alan # (ANC) x 10^3/uL 3.34 2.53 3.77 3.10 3.62 3.26 LY # x 10^3/uL 0.98 (L) 0.70 (L) 1.16 (L) 0.74 (L) 0.96 (L) 0.88 (L) MO # x 10^3/uL 0.41 0.40 0.49 0.36 0.47 0.42 EO # x 10^3/uL 0.24 0.17 0.25 0.14 0.24 0.15 BA # x 10^3/uL 0.03 0.01 0.03 0.02 0.01 0.02 CMP Lab Results 07/11/2024 04/11/2024 01/11/2024 10/11/2023 07/11/1904/12/2023 Chemistries Glucose mg/dL 87 104 95 124 (H) 109 (H) BUN mg/dL 23 18 15 23 20 Creatinine mg/dL 0.95 0.97 0.98 1.01 1.05 BUN/Creatinine ratio 24.2 18.6 15.3 22.8 19.0 Sodium mmol/L 142 138 139 140 140 Potassium mmol/L 4.5 4.2 4.2 4.4 4.7 Chloride mmol/L 106 106 107 105 105 CO2 mmol/L 25.3 27.0 27.3 25.7 25.7 Anion gap, mmol/L 10.7 5.0 4.7 9.3 9.3 Calcium mg/dL 9.9 10.1 9.5 10.4 10.0 Albumin g/dL 3.9 4.2 3.8 4.1 3.8 Total protein g/dL 6.3 7.3 6.5 7.1 6.6 A/G ratio 1.6 1.4 1.4 1.4 1.4 Bilirubin, total mg/dL 0.3 0.5 0.4 0.4 0.4 Alkaline phosphatase U/L 34 (L) 48 44 (L) 38 (L) 35 (L) AST/SGOT U/L 22 22 23 26 38 (H) ALT/SGPT U/L 19 23 19 23 34 GFR non-, estimated mL/min/1.73m2 >60.0 GFR , estimated mL/min/1.73m2 >60.0 eGFR, mL/min/1.73 >60.0 >60.0 >60.0 >60.0 Lab Results 07/11/2024 04/11/2024 01/11/2024 10/11/2023 07/11/1904/12/2023 Tumor Markers PSA, total ng/mL < 0.04 < 0.04 0.04 0.04 0.04 ? Lab Results 07/11/2024 04/11/2024 01/11/2024 10/11/2023 07/11/19 24 04/12/2023 Anemia Labs Imaging OCM - Patient Care Management Pain, if applicable: Date of Service: 07/11/2024 Pain Scale (0-10): 0 Pain Treatment Plan: No pain reported Comment: Performance Status:??ECOG 0 Normal activity. Fully active, able to carry on all pre-disease performance without restriction. (Date: 07/11/2024) Depression Status:??Was screened; Outcome positive: No; Screening Date: 04/11/2024; Screening Tool:Patient Health Questionnaire (PHQ9); Total depression score: 0 Psycho-social PHQ-9 Follow-up Plan (if applicable): Research Would you like this patient screened for clinical trial eligibility? If yes, please enter the??order for Research: Screen for Eligibility Assessment & Plan 1. Stage IV Prostate Cancer - history of Lillian 8 (5+3) prostate cancer s/p prostatectomy in 2012 - recent increase in PSA to 0.2 from 0.02 concerning for recurrent disease - CT scans suggested new bone metastasis, however bone scan negative - sodium fluoride PET imaging as recommended by radiologist also negative for radiographic disease - imaging reviewed by radiology and not amenable to biopsy - per NCCN guidelines, progression defined as PSA increase on 2 occasions in absence of radiographic progression - PSA then subsequently increased to 0.4 - repeat bone scan showed progression of bone mets - seen by Rad-Onc who recommended systemic therapy over XRT - completed Taxotere x 6 cycles 04/2016 - CT and bone scan stable - PSA 0.04 at last check 04/11/24 - consider Xgeva if bone disease progressing - FU 3 months for next lupron - continue to follow up every 3 months for labs, visit, injection or sooner if new or worsening symptoms? 2. Depression - continue Effexor, mood stable, no changes? 3. anemia?? reviewed labs, hgb decreased to 11.2, asymptomatic, denies bleeding?? reports he is UTD on his colonoscopy?? Hgb slightly lower at 10.5 Just had a cardiac cath Could be from chronic disease (CAD/cancer) and recent procedure Iron studies normal 10/2022 Hgb stable today 11.9 4. hypertension?? PCP started on medication management, ongoing follow up?? BP stable?? 5. Libido - advised against exogenous testosterone 6. Testicular pain - sees urology - resolved 7. CAD - awaiting results of stress test Recent imaging and labs were reviewed and discussed with the patient. Time Based Itemization A total of minutes??was spent on today's patient encounter. If applicable, uin-rhpnyaw-sagcjs activities: ?(?)?Preparing to see the patient and reviewing records ?(?)?Individual interpretation of??results?(?)?Discussion or coordination of care with other health cardiac care nurse ?(?)?Ordering of unique tests, medications, or procedures ?(?)?Documentation within the EHR?? . Recent imaging and labs were reviewed and discussed with the patient. Shayne Castellanos MD [facility], Medical Oncology Online: [email or web address] Note Recipients:? Electronically signed by Shayne Castellanos MD 07/11/2024 10:01 EDT * Nurse Note for: 11-JUL-24 Oncology Hematology Care Nurse Note Print Location: Unknown Date/Time Printed: 10/11/2024 10:35 ([facility]) Patient: RICHI CRUZ Sex: Male : [...]
--- OUTSIDE RECORDS SUMMARY | 2024-10-11 10:37 | XMS_ITS | CCD ---
Author Name Interface, [id number] lity Address [address] [place] [address] Organization [facility] Address [address] [place] [address] Care Team Providers Care Fashion Adviser Name Role Phone Jasmin BRAMBILA, Shayne Wahl Unavailable Unavailable Allergies and Adverse Reactions Medication/Group Name Reaction Severity Date No known allergies Care Plan Date Type Value 01/01/2025 APPOINTMENT INJECTION [...] 15 MIN 01/11/2024 APPOINTMENT OV 15 MIN 01/11/2024 LABORDER CMP - Core Lab 01/11/2024 [...] Visit OV 15 MIN Encounters Date Name 01/01/2025 Prostate cancer in s itu 01/01/2025 Prostate cancer in s itu 01/01/2025 Prostate cancer in s itu 10/02/2024 Prostate cancer in s itu 10/02/2024 Prostate cancer in s itu 10/02/2024 Prostate cancer in s itu 01/01/2025 INJECTION 15 MIN 01/01/2025 LAB 15 MIN 01/01/2025 OV 15 MIN 10/02/2024 INJECTION 15 MIN 10/02/2024 LAB 15 MIN 10/02/2024 Prostate cancer in s itu Functional Status Date Name Score 03/28/2017 ECOG performance status - grade 0 0 08/11/2016 ECOG performance status - grade 0 0 12/27/2016 ECOG performance status - grade 0 0 07/05/2022 ECOG performance status - grade 0 0 04/07/2022 ECOG performance status - grade 0 0 07/07/2022 ECOG performance status - grade 0 0 10/06/2021 ECOG performance status - grade 0 0 01/05/2022 ECOG performance status - grade 0 0 01/08/2019 ECOG performance status - grade 0 0 01/09/2018 ECOG performance status - grade 0 0 01/10/2023 ECOG performance status - grade 0 0 10/10/2022 ECOG performance status - grade 0 0 04/09/2020 ECOG performance status - grade 0 0 01/09/2020 ECOG performance status - grade 0 0 07/11/2023 ECOG performance status - grade 0 0 04/12/2023 ECOG performance status - grade 0 0 07/09/2020 ECOG performance status - grade 0 0 10/11/2023 ECOG performance status - grade 0 0 01/11/2024 ECOG performance status - grade 0 0 10/08/2020 ECOG performance status - grade 0 0 10/09/2018 ECOG performance status - grade 0 0 07/10/2018 ECOG performance status - grade 0 0 07/11/2024 ECOG performance status - grade 0 0 04/11/2024 ECOG performance status - grade 0 0 04/08/2021 ECOG performance status - grade 0 0 07/06/2021 ECOG performance status - grade 0 0 04/10/2018 ECOG performance status - grade 0 0 10/02/2024 ECOG performance status - grade 0 0 07/04/2017 ECOG performance status - grade 0 0 10/10/2017 ECOG performance status - grade 0 0 07/09/2019 ECOG performance status - grade 0 0 04/09/2019 ECOG performance status - grade 0 0 10/10/2019 ECOG performance status - grade 0 0 Diagnostic Results Date Type Test Units Lower Limit Upper Limit Result Flag Comments Status Ordered By Specimen Source Lab Address 10/02 CMP - Core Lab Alkal ine phosp hatas e U/L 46.0 116.0 39 Low FINAL [facility] ([facility] [address] [place] [address] 10/02 CMP - Core Lab Calci um mg/dL 8.7 10.6 9.9 FINAL [facility] ([facility]), [address] [place] [address] 10/02 CMP - Core Lab ALT/S GPT U/L 10.0 49.0 22 FINAL [facility] ([facility]), [address] [place] [address] 10/02 CMP - Core Lab A/G ratio 1.0 2.0 1.6 FINAL [facility] ([facility]), [address] [place] [address] 10/02 CMP - Core Lab CO2 mmol/L 20.0 31.0 25.1 FINAL [facility] ([facility]), [address] [place] [address] 10/02 CMP - Core Lab Gluco se mg/dL 74.0 106.0 93 FINAL [facility] ([facility] [address] [place] [address] 10/02 CMP - Core Lab Anion gap, mmol/ L mmol/L 4.0 15.0 9.9 FINAL [facility] ([facility] [address] [place] [address] 10/02 CMP - Core Lab eGFR, mL/mi n/1.7 3 mL/min /1.73m >60.0 FINAL [facility] ([facility]), [address] [place] [address] [place] [address] 10/02 CMP - Core Lab Chlor naif mmol/L 98.0 107.0 105 FINAL [facility] ([facility] [address] [place] [address] [place] [address] 10/02 CMP - Core Lab Total prote in g/dL 5.7 8.2 6.6 FINAL [facility] ([facility] [address] [place] [address] [place] [address] 10/02 CMP - Core Lab BUN mg/dL 9.0 23.0 29 High FINAL [facility] ([facility] [address] [place] [address] 10/02 CMP - Core Lab Creat inine mg/dL 0.73 1.18 1.07 FINAL [facility] ([facility]), [address] [place] [address] [place] [address] 10/02 CMP - Core Lab AST/S GOT U/L 0.0 34.0 22 FINAL [facility] ([facility] [address] [place] [address] [place] [address] 10/02 CMP - Core Lab Album in g/dL 3.4 5.0 4.1 FINAL [facility] ([facility] [address] [place] [address] [place] [address] 10/02 CMP - Core Lab Bilir ubin, total mg/dL 0.3 1.2 0.4 FINAL [facility] ([facility] [address] [place] [address] [place] [address] 10/02 CMP - Core Lab Sodiu m mmol/L 136.0 145.0 140 FINAL [facility] ([facility] [address] [place] [address] [place] [address] 10/02 CMP - Core Lab BUN/C reati nine ratio 0.0 25.0 27.1 High FINAL [facility] ([facility] [address] [place] [address] [place] [address] 10/02 CMP - Core Lab Potas sium mmol/L 3.4 5.1 4.3 FINAL [facility]), [facility] [address] 10/02 CBC w/ auto diff Alan # (ANC) 10*3/u L 1.78 5.38 3.21 FINAL [facility] ([facility]), [address], [address] [place] [address] 10/02 CBC w/ auto diff MO # 10*3/u L 0.3 0.82 0.54 FINAL [facility] ([facility]), [address], [address] [place] [address] 10/02 CBC w/ auto diff MCV fL 79.0 92.2 90.4 FINAL [facility] (T), [address], [address] [place] [address] 10/02 CBC w/ auto diff MO % % 5.3 12.2 11.2 FINAL [facility] ([facility]), [address], [address] [place] [address] 10/02 CBC w/ auto diff EO # 10*3/u lL 0.04 0.54 0.27 FINAL [facility] ([facility]), [address], [address] [place] [address] 10/02 CBC w/ auto diff EO % % 0.8 7.0 5.6 FINAL [facility] (T), [address], [address] [place] [address] 10/02 CBC w/ auto diff RBC 10*6/u L 4.63 6.08 3.84 Low FINAL [facility] (T), [address], [address] [place] [address] 10/02 CBC w/ auto diff WBC 10*3/u L 4.2 9.1 4.8 FINAL [facility] (T), [address], [address] [place] [address] 10/02 CBC w/ auto diff PLT 10*3/u L 163.0 337.0 174 FINAL [facility] ([facility]), [address], [address] [place] [address] 10/02 CBC w/ auto diff BA % % 0.2 1.2 0.4 FINAL [facility] ([facility]), [address], [address] [place] [address] 10/02 CBC w/ auto diff BA # 10*3/u L 0.01 0.08 0.02 FINAL Shayne [facility] ([facility]), [address], [address] [place] [address] 10/02 CBC w/ auto diff HGB g/dL 13.7 17.5 11.4 Low FINAL Sahyne [facility] (T), [address], [address] [place] [address] 10/02 CBC w/ auto diff RDW-C V, % % 11.6 14.4 13.7 FINAL Shayne [facility] ([facility]), [address], [address] [place] [address] 10/02 CBC w/ auto diff LY % % 21.8 53.1 16.2 Low FINAL Shayne [facility] ([facility]), [address], [address] [place] [address] 10/02 CBC w/ auto diff LY # 10*3/u L 1.32 3.57 0.78 Low FINAL Shayne [facility] ([facility]), [address], [address] [place] [address] 10/02 CBC w/ auto diff MCH pg 25.7 32.2 29.7 FINAL Shayne [facility] ([facility]), [address], [address] [place] [address] 10/02 CBC w/ auto diff MCHC g/dL 32.3 36.5 32.9 FINAL Sh[facility]ne [facility] ([facility]), [address], [address] [place] [address] 10/02 CBC w/ auto diff HCT % 40.1 51.0 34.7 Low FINAL [facility] (T), [address], [address] [facility] [address] 10/02 CBC w/ auto diff Alan % % 34.0 67.9 66.6 FINAL Shayne Castellanos [facility] (T), [address], [address] [facility] [address] 10/02 PSA, total ng/mL < 0.04 FINAL Shayne [facility] ([facility]), [address] [facility] [address] Medications Administered Date Name Route Dose Frequency Instructions Start Date End Date Status 2024 1 ML leuprolide acetate 3.75 MG/ML Prefilled Syringe intramuscularly 22.5 mg every 3 months 025 10/02 inactive 2024 1 ML leuprolide acetate 3.75 MG/ML Prefilled Syringe intramuscularly 22.5 mg every 3 months 025 07/11 inactive 2024 1 ML leuprolide acetate 3.75 MG/ML Prefilled Syringe intramuscularly 22.5 mg every 3 months 025 04/11 inactive 2023 1 ML leuprolide acetate 3.75 MG/ML Prefilled Syringe intramuscularly 22.5 mg every 3 months 024 01/10 inactive Medications Date Name Route Dose Frequency Instructions Start Date End Date Status Sulfamethoxazole -Trimethoprim Oral 800 mg-160 mg (DS) orally 1.0 2 times per day inactive Esomeprazole (Magnesium) Oral Delayed Release Capsule 40.0 mg daily inactive Valsartan Oral ac tive Prochlorperazine Oral 10.0 mg every 8 hours prn inactive Fenofibrate Oral 145.0 active Prednisone Oral oral 5.0 mg bid inactive Oxycodone Oral 12 Hr ER Tablet 10.0 mg every 8 hours stopped Butalbital-Codei ne-Acetaminophen -Caffeine Oral 50 mg-30 mg-325 mg-40 mg orally 2.0 every 4 hours prn pain; do not exceed 6 caps per day active Atorvastatin Oral once a day active Benazepril Oral once a day inactive Isosorbide Mononitrate Oral 24 hr Tab once a day inactive Venlafaxine Oral 150.0 mg daily inactive Ticagrelor Oral one twice a day inactive Amlodipine Oral once a day active Ondansetron Oral Disintegrating Tablet 8.0 mg inactive Zolpidem Oral Tablet orally 10.0 mg once daily at bedtime prn insomnia inactive Gabapentin Oral x3 i nactive Testosterone Cypionate IM inactiv e Clopidogrel Oral active Venlafaxine Oral 24 hr Cap active 01/01 1 ML leuprolide acetate 3.75 MG/ML Prefilled Syringe intramuscularly 22.5 mg every 3 months 2024 active Patient Education Date Type Value 10/02/2024 Leuprolide Problems Diagnosis Status Date of Diagnosis Resolution Date Essential hypertension (disorder) Active Anemia Active Headache Active Depression Active Secondary malignant neoplasm of bone (disorder) Active 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 situ Active Stool contents abnormal Active Insomnia Active Procedures Date Category Name Instructions Status 01/11/2024 Physician Order RTC MD Ordered 04/12/2024 Physician Order RTC MOTEL MAID/PA injection Ordered 07/11/2024 Physician Order RTC MD injection Ord ered 10/02/2024 Physician Order RTC MOTEL MAID/PA injection Ordered 01/01/2025 Physician Order RTC MD injection Ord ered Social History Date Name Value 04/11/2024 Sex Male Visits Date Type Value 01/01/2025 OV 15 MIN 01/01/2025 INJECTION 15 MIN 01/01/2025 LAB 15 MIN Vital Signs Date Type Value 01/11/2024 BMI 29.80 01/11/2024 Height 64.00 01/11/2024 Weight 173.60 01/11/2024 Pain Scale 0.00 01/11/2024 BSA 1.89 01/11/2024 Respiratory Rate 16.00 01/11/2024 Heart Beat 76.00 01/11/2024 Body Temperature 98.00 01/11/2024 Intravascular Systolic 140 01/11/2024 Intravascular Diastolic 82 04/11/2024 BMI 30.07 04/11/2024 Height 64.00 04/11/2024 Weight 175.20 04/11/2024 Pain Scale 0.00 04/11/2024 Intravascular Systolic 117 04/11/2024 Intravascular Diastolic 70 04/11/2024 Respiratory Rate 13.00 04/11/2024 Heart Beat 66.00 04/11/2024 Body Temperature 98.20 04/11/2024 BSA 1.89 07/11/2024 Weight 181.00 07/11/2024 Body Temperature 97.80 07/11/2024 Height 64.00 07/11/2024 Pain Scale 0.00 07/11/2024 Respiratory Rate 14.00 07/11/2024 BSA 1.93 07/11/2024 BMI 31.07 07/11/2024 Intravascular Systolic 139 07/11/2024 Intravascular Diastolic 72 07/11/2024 Heart Beat 71.00 10/02/2024 BMI 30.72 10/02/2024 Height 64.00 10/02/2024 Weight 179.00 10/02/2024 Body Temperature 97.80 10/02/2024 BSA 1.91 10/02/2024 Intravascular Systolic 110 10/02/2024 Intravascular Diastolic 69 10/02/2024 Respiratory Rate 16.00 10/02/2024 Heart Beat 71.00 10/02/2024 Pain Scale 0.00 Notes Section * [facility] Follow Up Patient Name: RICHI RITTER Patient : 1950 Patient Primary Oncologist: Shayne Castellanos (Medical Oncology) Referring Physician: PATRICIA ROCHE Date of Service: 10/02/2024 Chief Complaint * 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, Stage IV (T1, N0, M1b, >= 8, < 10)-Clinical Disease Status: Evidence of metastatic disease; Disease State: Progressive disease; Metastatic Sites: Bone; Histopathologic Type: Adenocarcinoma; Bone Scan: Performed; Lillian Score-Primary: 5; Lillian Score-Secondary: 3; [place] Status-Sum: 8; ) Problem List * 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 Previous Therapies Current Therapy Leuprolide D1 Q3M Cycle Length: 91 Number Cycles: 38 Start: C5D1 on 12/13/2016 Assoc Dx: Prostate cancer in situ LOT: Other 07/09/2020 C19 D1 * Leuprolide IM, 22.5 mg q1lnclct Interval History Mr. Ritter presents today for follow-up and Lupron.? he looks and feels well.? He has no? new pain.? He denies SOB, cough, N/V/D.? Review of Systems Constitutional: ?No weight loss, No fever, No chills, No night sweats. ?Energy level good. Eyes: ?No impairment or change in vision ENT / Mouth: ?No pain, abnormal ulceration, bleeding, nasal drip or change in voice or hearing Cardiovascular: ?No chest pain, palpitations, new edema, or calf discomfort Respiratory: ?No pain, hemoptysis, change to breathing Breast: ?No pain, discharge, change in appearance or texture Gastrointestinal: ?No pain, cramping, jaundice, change to eating and bowel habits Urinary: ?No pain, bleeding or change in continence Genitalia: No pain, bleeding or discharge Musculoskeletal: ?No redness, pain, edema or weakness Skin: ?No pruritus, rash, change to nodules or lesions Neurologic: ?No discomfort, change in mental status, speech, sensory or motor activity Psychiatric: ?No change in concentration or change to affect or mood Endocrine: ?No hot flashes, increased thirst, or change to urine production Hematologic: No petechiae, ecchymosis or bleeding Lymphatic: ?No lymphadenopathy or lymphedema Allergy / Immunologic: ?No eczema, hives, frequent or recurrent infections Vital Signs Blood pressure: 110/69, Pulse: 71, Temperature: 97.8 F, Respirations: 16, O2 sat: , Pain Scale: 0, Height: 64 in, Weight: 179 lb, BSA: 1.91, BMI: 30.72 kg/m2 Physical Exam CONSTITUTIONAL: awake, alert, cooperative, no apparent distress? EYES: pupils equal, round, sclera clear and conjunctiva normal ENT: Normocephalic, without obvious abnormality, atraumatic NECK:?supple, symmetrical HEMATOLOGIC/LYMPHATIC: no cervical, supraclavicular or axillary lymphadenopathy? LUNGS: no increased work of breathing and clear to auscultation? CARDIOVASCULAR: regular rate and rhythm, normal S1 and S2, no murmur noted ABDOMEN: normal bowel sounds x 4, soft, non-distended, non-tender, no masses palpated, no hepatosplenomegaly? MUSCULOSKELETAL: full range of motion noted NEUROLOGIC: awake, alert, oriented to name, place and time. Motor skills grossly intact.? SKIN: Normal skin color, texture, turgor and no jaundice. appears intact? EXTREMITIES: no LE edema? Labs CBC Lab Results 10/02/2024 07/11/2024 04/11/2024 01/11/2024 10/11/1907/11/2023 CBC WBC x 10^3/uL 4.8 5.0 3.8 (L) 5.7 4.4 5.3 RBC x 10^6/uL 3.84 (L) 3.97 (L) 3.66 (L) 4.78 4.04 (L) 4.05 (L) HGB g/dL 11.4 (L) 11.9 (L) 11.4 (L) 14.4 12.4 (L) 12.1 (L) HCT % 34.7 (L) 36.6 (L) 34.8 (L) 43.0 38.0 (L) 37.2 (L) MCV fL 90.4 92.2 95.1 (H) 90.0 94.1 (H) 91.9 MCH pg 29.7 30.0 31.1 30.1 30.7 29.9 MCHC g/dL 32.9 32.5 32.8 33.5 32.6 32.5 RDW-CV, % 13.7 13.6 13.3 13.2 13.9 13.6 PLT x 10^3/uL 174 180 183.0 191.0 174.0 166.0 Alan % 66.6 66.8 66.3 66.1 71.0 (H) 68.3 (H) LY % 16.2 (L) 19.6 (L) 18.4 (L) 20.4 (L) 17.0 (L) 18.1 (L) MO % 11.2 8.2 10.5 8.6 8.3 8.9 EO % 5.6 4.8 4.5 4.4 3.2 4.5 BA % 0.4 0.6 0.3 0.5 0.5 0.2 Alan # (ANC) x 10^3/uL 3.21 3.34 2.53 3.77 3.10 3.62 LY # x 10^3/uL 0.78 (L) 0.98 (L) 0.70 (L) 1.16 (L) 0.74 (L) 0.96 (L) MO # x 10^3/uL 0.54 0.41 0.40 0.49 0.36 0.47 EO # x 10^3/uL 0.27 0.24 0.17 0.25 0.14 0.24 BA # x 10^3/uL 0.02 0.03 0.01 0.03 0.02 0.01 CMP Lab Results 10/02/2024 07/11/2024 04/11/2024 01/11/2024 10/11/1907/11/2023 Chemistries Glucose mg/dL 99 87 104 95 124 (H) BUN mg/dL 19 23 18 15 23 Creatinine mg/dL 1.02 0.95 0.97 0.98 1.01 BUN/Creatinine ratio 18.6 24.2 18.6 15.3 22.8 Sodium mmol/L 143 142 138 139 140 Potassium mmol/L 4.8 4.5 4.2 4.2 4.4 Chloride mmol/L 105 106 106 107 105 CO2 mmol/L 29.5 25.3 27.0 27.3 25.7 Anion gap, mmol/L 8.5 10.7 5.0 4.7 9.3 Calcium mg/dL 10.1 9.9 10.1 9.5 10.4 Albumin g/dL 3.8 3.9 4.2 3.8 4.1 Total protein g/dL 6.6 6.3 7.3 6.5 7.1 A/G ratio 1.4 1.6 1.4 1.4 1.4 Bilirubin, total mg/dL 0.4 0.3 0.5 0.4 0.4 Alkaline phosphatase U/L 36 (L) 34 (L) 48 44 (L) 38 (L) AST/SGOT U/L 23 22 22 23 26 ALT/SGPT U/L 21 19 23 19 23 eGFR, mL/min/1.73 >60.0 >60.0 >60.0 >60.0 >60.0 Lab Results 10/02/2024 07/11/2024 04/11/2024 01/11/2024 10/11/19 24 07/11/2023 Tumor Markers PSA, total ng/mL < 0.04 < 0.04 < 0.04 0.04 0.04 ? Lab Results 10/02/2024 07/11/2024 04/11/2024 01/11/2024 10/11/19 24 07/11/2023 Anemia Labs Imaging OCM - Patient Care Management Pain, if applicable: ? Performance Status:?ECOG 0 Normal activity. Fully active, able to carry on all pre-disease performance without restriction. (Date: 10/02/2024) Depression Status:?Was screened; Outcome positive: No; Screening Date: 10/02/2024; Screening Tool: Patient Health Questionnaire (PHQ9) Psycho-social PHQ-9 Follow-up Plan (if applicable):? Research Would you like this patient screened for clinical trial eligibility? If yes, please enter the?order for Research: Screen for Eligibility Assessment & Plan Return to clinic in 3 months for follow-up and Lupron. ? . Recent imaging and labs were reviewed and discussed with the patient.? Patient was instructed to stop at our front counter attendant to make their next appointment before leaving. They will call in the interim with any questions/concerns/new symptoms. This plan was discussed with the patient and they verbalized understanding and acceptance of the plan.? Dr. Castellanos was available for consultation for this visit.? Milvia Johnson MSN, BUREAU DIRECTOR-BC, AOCNP [facility], Medical Oncology Online: [email or web address] Note Recipients:? 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, Stage IV (T1, N0, M1b, >= 8, < 10)-Clinical Disease Status: Evidence of metastatic disease; Disease State: Progressive disease; Metastatic Sites: Bone; Histopathologic Type: Adenocarcinoma; Bone Scan: Performed; [place] Score-Primary: 5; [place] Score-Secondary: 3; Lillian Status-Sum: 8; ) Problem List * 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 Previous Therapies Current Therapy Leuprolide D1 Q3M Cycle Length: 91 Number Cycles: 38 Start: C5D1 on 12/13/2016 Assoc Dx: Prostate cancer in situ LOT: Other 07/09/2020 C19 D1 * Leuprolide IM, 22.5 mg [id number] Interval History Here for follow up and due for lupron. No new focal bone pains. Last PSA still undetectable. [facility] just ordered a stress test.? Review of Systems Constitutional: ?No weight loss, No fever, No chills, No night sweats. ?Energy level good. Eyes: ?No impairment or change in vision ENT / Mouth: ?No pain, abnormal ulceration, bleeding, nasal drip or change in voice or hearing Cardiovascular: ?No chest pain, palpitations, new edema, or calf discomfort Respiratory: ?No pain, hemoptysis, change to breathing Breast: ?No pain, discharge, change in appearance or texture Gastrointestinal: ?No pain, cramping, jaundice, change to eating and bowel habits Urinary: ?No pain, bleeding or change in continence Genitalia: No pain, bleeding or discharge Musculoskeletal: ?No redness, pain, edema or weakness Skin: ?No pruritus, rash, change to nodules or lesions Neurologic: ?No discomfort, change in mental status, speech, sensory or motor activity Psychiatric: ?No change in concentration or change to affect or mood Endocrine: ?No hot flashes, increased thirst, or change to urine production Hematologic: No petechiae, ecchymosis or bleeding Lymphatic: ?No lymphadenopathy or lymphedema Allergy / Immunologic: ?No eczema, hives, frequent or recurrent infections Vital Signs Blood pressure: 139/72, Pulse: 71, Temperature: 97.8 F, Respirations: 14, O2 sat: , Pain Scale: 0, Height: 64 in, Weight: 181 lb, BSA: 1.93, BMI: 31.07 kg/m2 Physical Exam CONSTITUTIONAL: awake, alert, cooperative, no apparent distress? EYES: pupils equal, round and reactive to light, sclera clear and conjunctiva normal ENT: Normocephalic, without obvious abnormality, atraumatic NECK:?supple, symmetrical, no jugular venous distension and no carotid bruits? HEMATOLOGIC/LYMPHATIC: no cervical, supraclavicular or axillary lymphadenopathy? LUNGS: no increased work of breathing and clear to auscultation? CARDIOVASCULAR: regular rate and rhythm, normal S1 and S2, no murmur noted ABDOMEN: normal bowel sounds x 4, soft, non-distended, non-tender, no masses palpated, no hepatosplenomegaly? MUSCULOSKELETAL: full range of motion noted, tone is normal NEUROLOGIC: awake, alert, oriented to name, place and time. Motor skills grossly intact.? SKIN: Normal skin color, texture, turgor and no jaundice. appears intact? EXTREMITIES: no LE edema? Labs CBC Lab Results 07/11/2024 04/11/2024 01/11/2024 [...] CMP Lab Results 07/11/2024 04/11/2024 01/11/2024 10/11/2023 07/11/19 24 04/12/2023 Chemistries Glucose mg/dL 87 104 95 124 [...] >60.0 Lab Results 07/11/2024 04/11/2024 01/11/2024 10/11/2023 07/11/19 24 04/12/2023 Tumor Markers PSA, total ng/mL < 0.04 < 0.04 0.04 0.04 0.04 ? Lab Results 07/11/2024 04/11/2024 01/11/2024 10/11/2023 07/11/19 24 04/12/2023 Anemia Labs Imaging OCM - Patient Care Management Pain, if applicable: Date of Service: 07/11/2024 Pain Scale (0-10): 0 Pain Treatment Plan: No pain reported Comment: Performance Status:?ECOG 0 Normal activity. Fully active, able to carry on all pre-disease performance without restriction. (Date: 07/11/2024) Depression Status:?Was screened; Outcome positive: No; Screening Date: 04/11/2024; Screening Tool: Patient Health Questionnaire (PHQ9); Total depression score: 0 Psycho-social PHQ-9 Follow-up Plan (if applicable): Research Would you like this patient screened for clinical trial eligibility? If yes, please enter the?order for Research: Screen for Eligibility Assessment & Plan 1. Stage IV Prostate Cancer - history of [place] 8 (5+3) prostate cancer s/p prostatectomy in [...] continue Effexor, mood stable, no changes? 3. anemia? reviewed labs, hgb decreased to 11.2, asymptomatic, denies bleeding? reports he is UTD on his colonoscopy? Hgb slightly lower at 10.5 Just had a cardiac cath Could be from chronic disease (CAD/cancer) and recent procedure Iron studies normal 10/2022 Hgb stable today 11.9 4. hypertension? PCP started on medication management, ongoing follow up? BP stable? 5. Libido - advised against exogenous testosterone 6. Testicular pain - sees urology - resolved 7. CAD - awaiting results of stress test Recent imaging and labs were reviewed and discussed with the patient. Time Based Itemization A total of minutes?was spent on today's patient encounter. If applicable, [id number] activities: ?(?)?Preparing to see the patient and reviewing records ?(?)?Individual interpretation of?results?(?)?Discussion or coordination of care with other health tire care manager ?(?)?Ordering of unique tests, medications, or procedures ?(?)?Documentation within the EHR? . Recent imaging and labs were reviewed and discussed with the patient. Shayne Castellanos MD [facility], Medical Oncology Online: [email or web address] Note Recipients:? 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, Stage IV (T1, N0, M1b, >= 8, < 10)-Clinical Disease Status: Evidence of metastatic disease; Disease State: Progressive disease; Metastatic Sites: Bone; Histopathologic Type: Adenocarcinoma; Bone Scan: Performed; [place] Score-Primary: 5; [place] Score-Secondary: 3; [place] Status-Sum: 8; ) Problem List * 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 Previous Therapies Current Therapy Leuprolide D1 Q3M Cycle Length: 91 Number Cycles: 38 Start: C5D1 on 12/13/2016 Assoc Dx: Prostate cancer in situ LOT: Other 07/09/2020 C19 D1 * Leuprolide IM, 22.5 mg [id number] Interval History Mr. Ritter presents today for 3-month follow-up and leuprolide.?He looks and feels well and has no new complaints. ?He is going to have carpal tunnel surgery at the end of this month.? He has had fairly significant pain due to this.? He has no other pain. ?His appetite has been good.? Bowels are moving well. Review of Systems Constitutional: ?No weight loss, No fever, No chills, No night sweats. ?Energy level good. Eyes: ?No impairment or change in vision ENT / Mouth: ?No pain, abnormal ulceration, bleeding, nasal drip or change in voice or hearing Cardiovascular: ?No chest pain, palpitations, new edema, or calf discomfort Respiratory: ?No pain, hemoptysis, change to breathing Breast: ?No pain, discharge, change in appearance or texture Gastrointestinal: ?No pain, cramping, jaundice, change to eating and bowel habits Urinary: ?No pain, bleeding or change in continence Genitalia: No pain, bleeding or discharge Musculoskeletal: ?No redness, pain, edema or weakness Skin: ?No pruritus, rash, change to nodules or lesions Neurologic: ?No discomfort, change in mental status, speech, sensory or motor activity Psychiatric: ?No change in concentration or change to affect or mood Endocrine: ?No hot flashes, increased thirst, or change to urine production Hematologic: No petechiae, ecchymosis or bleeding Lymphatic: ?No lymphadenopathy or lymphedema Allergy / Immunologic: ?No eczema, hives, frequent or recurrent infections Vital Signs Blood pressure: 117/70, Pulse: 66, Temperature: 98.2 F, Respirations: 13, O2 sat: , Pain Scale: 0, Height: 64 in, Weight: 175.2 lb, BSA: 1.89, BMI: 30.07 kg/m2 Physical Exam CONSTITUTIONAL: awake, alert, cooperative, no apparent distress? EYES: pupils equal, round, sclera clear and conjunctiva normal ENT: Normocephalic, without obvious abnormality, atraumatic NECK:?supple, symmetrical HEMATOLOGIC/LYMPHATIC: no cervical, supraclavicular or axillary lymphadenopathy? LUNGS: no increased work of breathing and clear to auscultation? CARDIOVASCULAR: regular rate and rhythm, normal S1 and S2, no murmur noted ABDOMEN: normal bowel sounds x 4, soft, non-distended, non-tender, no masses palpated, no hepatosplenomegaly? MUSCULOSKELETAL: full range of motion noted NEUROLOGIC: awake, alert, oriented to name, place and time. Motor skills grossly intact.? SKIN: Normal skin color, texture, turgor and no jaundice. appears intact? EXTREMITIES: no LE edema? Labs CBC Lab Results 04/11/2024 01/11/2024 10/11/2023 07/11/2023 04/12/1901/10/2023 CBC WBC x 10^3/uL 3.8 (L) 5.7 4.4 5.3 4.7 4.1 (L) RBC x 10^6/uL 3.66 (L) 4.78 4.04 (L) 4.05 (L) 3.84 (L) 3.46 (L) HGB g/dL 11.4 (L) 14.4 12.4 (L) 12.1 (L) 11.4 (L) 10.5 (L) HCT % 34.8 (L) 43.0 38.0 (L) 37.2 (L) 35.6 (L) 31.3 (L) MCV fL 95.1 (H) 90.0 94.1 (H) 91.9 92.7 (H) 90.5 MCH pg 31.1 30.1 30.7 29.9 29.7 30.3 MCHC g/dL 32.8 33.5 32.6 32.5 32.0 (L) 33.5 RDW-CV, % 13.3 13.2 13.9 13.6 13.7 12.7 PLT x 10^3/uL 183.0 191.0 174.0 166.0 177.0 182.0 Alan % 66.3 66.1 71.0 (H) 68.3 (H) 68.9 (H) 71.1 (H) LY % 18.4 (L) 20.4 (L) 17.0 (L) 18.1 (L) 18.6 (L) 16.9 (L) MO % 10.5 8.6 8.3 8.9 8.9 9.1 EO % 4.5 4.4 3.2 4.5 3.2 2.7 BA % 0.3 0.5 0.5 0.2 0.4 0.2 Alan # (ANC) x 10^3/uL 2.53 3.77 3.10 3.62 3.26 2.90 LY # x 10^3/uL 0.70 (L) 1.16 (L) 0.74 (L) 0.96 (L) 0.88 (L) 0.69 (L) MO # x 10^3/uL 0.40 0.49 0.36 0.47 0.42 0.37 EO # x 10^3/uL 0.17 0.25 0.14 0.24 0.15 0.11 BA # x 10^3/uL 0.01 0.03 0.02 0.01 0.02 0.01 CMP Lab Results 04/11/2024 01/11/2024 10/11/2023 07/11/2023 04/12/19 24 01/10/2023 Chemistries Glucose mg/dL 104 95 124 (H) 109 (H) 103 BUN mg/dL 18 15 23 20 31 (H) Creatinine mg/dL 0.97 0.98 1.01 1.05 1.08 BUN/Creatinine ratio 18.6 15.3 22.8 19.0 28.7 (H) Sodium mmol/L 138 139 140 140 139 Potassium mmol/L 4.2 4.2 4.4 4.7 4.1 Chloride mmol/L 106 107 105 105 105 CO2 mmol/L 27.0 27.3 25.7 25.7 27.2 Anion gap, mmol/L 5.0 4.7 9.3 9.3 6.8 Calcium mg/dL 10.1 9.5 10.4 10.0 10.1 Albumin g/dL 4.2 3.8 4.1 3.8 4.0 Total protein g/dL 7.3 6.5 7.1 6.6 6.7 A/G ratio 1.4 1.4 1.4 1.4 1.5 Bilirubin, total mg/dL 0.5 0.4 0.4 0.4 0.4 Alkaline phosphatase U/L 48 44 (L) 38 (L) 35 (L) 36 (L) AST/SGOT U/L 22 23 26 38 (H) 23 ALT/SGPT U/L 23 19 23 34 22 GFR non-, estimated mL/min/1.73m2 >60.0 >60.0 GFR , estimated mL/min/1.73m2 >60.0 >60.0 eGFR, mL/min/1.73 >60.0 >60.0 >60.0 Lab Results 04/11/2024 01/11/2024 10/11/2023 07/11/2023 04/12/19 24 01/10/2023 Tumor Markers PSA, total ng/mL < 0.04 0.04 0.04 0.04 0.04 ? Lab Results 04/11/2024 01/11/2024 10/11/2023 07/11/2023 04/12/1901/10/2023 Anemia Labs Imaging OCM - Patient Care Management Pain, if applicable: ? Performance Status:?ECOG 0 Normal activity. Fully active, able to carry on all pre-disease performance without restriction. (Date: 04/11/2024) Depression Status:?Was screened; Outcome positive: No; Screening Date: 04/11/2024; Screening Tool: Patient Health Questionnaire (PHQ9); Total depression score: 0 Psycho-social PHQ-9 Follow-up Plan (if applicable):? Research Would you like this patient screened for clinical trial eligibility? If yes, please enter the?order for Research: Screen for Eligibility Assessment & Plan Return to clinic in 3 months for follow-up and leuprolide. . Recent imaging and labs were reviewed and discussed with the patient.? Patient was instructed to stop at our front counter attendant to make their next appointment before leaving. They will call in the interim with any questions/concerns/new symptoms. This plan was discussed with the patient and they verbalized understanding and acceptance of the plan.? Dr. Castellanos was available for consultation for this visit.? Milvia Johnson MSN, BUREAU DIRECTOR-BC, AOCNP [facility], Medical Oncology Online: [email or web address]? Note Recipients:? 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, Stage IV (T1, N0, M1b, >= 8, < 10)-Clinical Disease Status: Evidence of metastatic disease; Disease State: Progressive disease; Metastatic Sites: Bone; Histopathologic Type: Adenocarcinoma; Bone Scan: Performed; [place] Score-Primary: 5; Lillian Score-Secondary: 3; Lillian Status-Sum: 8; ) Problem List * 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 Previous Therapies Current Therapy Leuprolide D1 Q3M Cycle Length: 91 Number Cycles: 33 Start: C5D1 on 12/13/2016 Assoc Dx: Prostate cancer in situ LOT: Other 07/09/2020 C19 D1 * Leuprolide IM, .5 mg Interval History Here for follow up. Due for lupron. No new bone pain. Weight stable. He is irritated that he had towait last appt for insurance approval and stated that someone told him I scheduled him? for [place], which is why is was held up.? Review of Systems Constitutional: ?No weight loss, No fever, No chills, No night sweats. ?Energy level good. Eyes: ?No impairment or change in vision ENT / Mouth: ?No pain, abnormal ulceration, bleeding, nasal drip or change in voice or hearing Cardiovascular: ?No chest pain, palpitations, new edema, or calf discomfort Respiratory: ?No pain, hemoptysis, change to breathing Breast: ?No pain, discharge, change in appearance or texture Gastrointestinal: ?No pain, cramping, jaundice, change to eating and bowel habits Urinary: ?No pain, bleeding or change in continence Genitalia: No pain, bleeding or discharge Musculoskeletal: ?No redness, pain, edema or weakness Skin: ?No pruritus, rash, change to nodules or lesions Neurologic: ?No discomfort, change in mental status, speech, sensory or motor activity Psychiatric: ?No change in concentration or change to affect or mood Endocrine: ?No hot flashes, increased thirst, or change to urine production Hematologic: No petechiae, ecchymosis or bleeding Lymphatic: ?No lymphadenopathy or lymphedema Allergy / Immunologic: ?No eczema, hives, frequent or recurrent infections Vital Signs Blood pressure: 140/82, Pulse: 76, Temperature: 98 F, Respirations: 16, O2 sat: , Pain Scale: 8, Height: 64 in, Weight: 173.6 lb, BSA: 1.89, BMI: 29.8 kg/m2 Physical Exam CONSTITUTIONAL: awake, alert, cooperative, no apparent distress? EYES: pupils equal, round and reactive to light, sclera clear and conjunctiva normal ENT: Normocephalic, without obvious abnormality, atraumatic NECK:?supple, symmetrical, no jugular venous distension and no carotid bruits? HEMATOLOGIC/LYMPHATIC: no cervical, supraclavicular or axillary lymphadenopathy? LUNGS: no increased work of breathing and clear to auscultation? CARDIOVASCULAR: regular rate and rhythm, normal S1 and S2, no murmur noted ABDOMEN: normal bowel sounds x 4, soft, non-distended, non-tender, no masses palpated, no hepatosplenomegaly? MUSCULOSKELETAL: full range of motion noted, tone is normal NEUROLOGIC: awake, alert, oriented to name, place and time. Motor skills grossly intact.? SKIN: Normal skin color, texture, turgor and no jaundice. appears intact? EXTREMITIES: no LE edema? Labs CBC Lab Results 01/11/2024 10/11/2023 07/11/2023 04/12/2023 01/11/2010/24/2022 CBC WBC x 10^3/uL 5.7 4.4 5.3 4.7 4.1 (L) RBC x 10^6/uL 4.78 4.04 (L) 4.05 (L) 3.84 (L) 3.46 (L) HGB g/dL 14.4 12.4 (L) 12.1 (L) 11.4 (L) 10.5 (L) HCT % 43.0 38.0 (L) 37.2 (L) 35.6 (L) 31.3 (L) MCV fL 90.0 94.1 (H) 91.9 92.7 (H) 90.5 MCH pg 30.1 30.7 29.9 29.7 30.3 MCHC g/dL 33.5 32.6 32.5 32.0 (L) 33.5 RDW-CV, % 13.2 13.9 13.6 13.7 12.7 PLT x 10^3/uL 191.0 174.0 166.0 177.0 182.0 Alan % 66.1 71.0 (H) 68.3 (H) 68.9 (H) 71.1 (H) LY % 20.4 (L) 17.0 (L) 18.1 (L) 18.6 (L) 16.9 (L) MO % 8.6 8.3 8.9 8.9 9.1 EO % 4.4 3.2 4.5 3.2 2.7 BA % 0.5 0.5 0.2 0.4 0.2 Alan # (ANC) x 10^3/uL 3.77 3.10 3.62 3.26 2.90 LY # x 10^3/uL 1.16 (L) 0.74 (L) 0.96 (L) 0.88 (L) 0.69 (L) MO # x 10^3/uL 0.49 0.36 0.47 0.42 0.37 EO # x 10^3/uL 0.25 0.14 0.24 0.15 0.11 BA # x 10^3/uL 0.03 0.02 0.01 0.02 0.01 CMP Lab Results 01/11/2024 10/11/2023 07/11/2023 04/12/2023 01/11/2010/24/2022 Chemistries Glucose mg/dL 95 124 (H) 109 (H) 103 BUN mg/dL 15 23 20 31 (H) Creatinine mg/dL 0.98 1.01 1.05 1.08 BUN/Creatinine ratio 15.3 22.8 19.0 28.7 (H) Sodium mmol/L 139 140 140 139 Potassium mmol/L 4.2 4.4 4.7 4.1 Chloride mmol/L 107 105 105 105 CO2 mmol/L 27.3 25.7 25.7 27.2 Anion gap, mmol/L 4.7 9.3 9.3 6.8 Calcium mg/dL 9.5 10.4 10.0 10.1 Albumin g/dL 3.8 4.1 3.8 4.0 Total protein g/dL 6.5 7.1 6.6 6.7 A/G ratio 1.4 1.4 1.4 1.5 Bilirubin, total mg/dL 0.4 0.4 0.4 0.4 Alkaline phosphatase U/L 44 (L) 38 (L) 35 (L) 36 (L) AST/SGOT U/L 23 26 38 (H) 23 ALT/SGPT U/L 19 23 34 22 GFR non-, estimated mL/min/1.73m2 >60.0 >60.0 GFR , estimated mL/min/1.73m2 >60.0 >60.0 eGFR, mL/min/1.73 >60.0 >60.0 Lab Results 01/11/2024 10/11/2023 07/11/2023 04/12/2023 01/11/2010/24/2022 Tumor Markers PSA, total ng/mL 0.04 0.04 0.04 0.04 ? Lab Results 01/11/2024 10/11/2023 07/11/2023 04/12/2023 01/11/2010/24/2022 Anemia Labs Imaging OCM - Patient Care Management Pain, if applicable: ? Performance Status:?ECOG 0 Normal activity. Fully active, able to carry on all pre-disease performance without restriction. (Date: 01/11/2024) Depression Status:?Was screened; Outcome positive: No; Screening Date: 10/11/2023; Screening Tool: Patient Health Questionnaire (PHQ9) Psycho-social PHQ-9 Follow-up Plan (if applicable): Research Would you like this patient screened for clinical trial eligibility? If yes, please enter the?order for Research: Screen for Eligibility Assessment & Plan 1. Stage IV Prostate Cancer - history of [place] 8 (5+3) prostate cancer s/p prostatectomy in [...] stable - PSA 0.04 at last check 10/11/23 - consider Xgeva if bone disease progressing - FU 3 months for next lupron - continue to follow up every 3 months for labs, visit, injection or sooner if new or worsening symptoms? - he is considering looking for a provider closer to home to transfer care to ? 2. Depression - continue Effexor, mood stable, no changes? 3. anemia? reviewed labs, hgb decreased to 11.2, asymptomatic, denies bleeding? reports he is UTD on his colonoscopy? Hgb slightly lower at 10.5 Just had a cardiac cath Could be from chronic disease (CAD/cancer) and recent procedure Iron studies normal 10/2022 Hgb normal today 4. hypertension? PCP started on medication management, ongoing follow up? BP stable? 5. Libido - advised against exogenous testosterone 6. Testicular pain - sees urology - resolved Recent imaging and labs were reviewed and discussed with the patient. Time Based Itemization A total of minutes?was spent on today's patient encounter. If applicable, [id number] activities: ?(?)?Preparing to see the patient and reviewing records ?(?)?Individual interpretation of?results?(?)?Discussion or coordination of care with other health tire care manager ?(?)?Ordering of unique tests, medications, or procedures ?(?)?Documentation within the EHR? . Recent imaging and labs were reviewed and discussed with the patient. Shayne Castellanos MD [facility], Medical Oncology Online: [email or web address]? Note Recipients:? Electronically signed by Shayne Castellanos MD 01/11/2024 09:40 EST
[2024-10-11] MEDS: ACETAMINOPHEN 500MG TAB 1000 MG PO (10:44)
[2024-10-11] MEDS: METHOCARBAMOL 500MG TABLET 1000 MG PO (10:44)
[2024-10-11] MEDS: IBUPROFEN 800 MG TABLET PO (10:44)
[2024-10-11 10:45] VITALS: BP 109/72; PULSE 85; O2SAT 97
[2024-10-11 11:01] VITALS: BP 123/91; PULSE 79; O2SAT 98
[2024-10-11 11:15] VITALS: BP 135/70; PULSE 79; O2SAT 97
[2024-10-11 11:30] VITALS: BP 140/75; PULSE 74; O2SAT 97
--- NOTE | 2024-10-11 12:24 | PC.NURSE ---
rounded on patient, updated patient on plan of care at this time.
[2024-10-11 12:58] VITALS: BP 122/62; PULSE 76; RESP 18; TEMP 36.6; O2SAT 96
== END 2024-10-11 13:00 | disposition home or self-care (01) ==
PROVIDERS: Emergency Provider Student in an Organized Health Care Education/Training Program; PCP Family Medicine
DX: S16.1XXA Strain of muscle, fascia and tendon at neck level, initial encounter (principal); M50.321 Other cervical disc degeneration at C4-C5 level; M50.322 Other cervical disc degeneration at C5-C6 level; M50.323 Other cervical disc degeneration at C6-C7 level; M99.61 Osseous and subluxation stenosis of intervertebral foramina of cervical region; X50.0XXA Overexertion from strenuous movement or load, initial encounter
CPT/HCPCS: 72125; 99284

== ENCOUNTER 2024-11-12 11:37 | Outpatient (CLI) | payer MEDICARE, SELFPAY ==
--- OUTSIDE RECORDS SUMMARY | 2024-11-12 11:39 | XMS_ITS | Clinical Summary ---
Author Organization [facility] Address [facility] [place] [address] Care Team Providers Care Wood Miller Name Role Phone Unavailable Primary Care Provider Unavailabl e Source Comments [facility] is fully rolled out with thefollowing exceptions:General Clinical Research [facility] Social History Tobacco Use Types Packs/Day Years [...] of 2 - 13+ 2-dose series) 06/02/1964 AMB SEASONAL FLU VACCINE (#1) 11/04/2024 COVID-19 Vaccine ( - 2023-2 5 season) 2024 Respiratory Syncytial Virus (RSV) >60yo or (1 [...] to Patient Date of Phone Billing Address [facility] Reference Lab Self [address] [place] [address] MEDICARE [place]
--- OUTSIDE RECORDS SUMMARY | 2024-11-12 11:40 | XMS_ITS ---
Author Organization [facility] Address [address], [address] [place] [address] Care Team Providers Care Catalogue Librarian Name Role Phone Mary Anne Parekh MD, Harold Primary Care Provider U navailable Active Problems Problem Noted Date Diagnosed Date Primary osteoarthritis of left knee 11/06/2015 Secondary malignant neoplasm of bone 10/27/2015 Abnormal radionuclide bone scan 10/06/2015 Reactive depression 10/06/2015 History of prostatectomy 10/06/2015 Malignant neoplasm of prostate 09/25/2015 Cancer Staging:Clinical:Stage IV(T1, N0, M1b, PSA: Less than 10, [place] 8-10) - Signed by Shayne Castellanos MD [...]
--- OUTSIDE RECORDS SUMMARY | 2024-11-12 11:40 | XMS_ITS | Encounter Summary ---
Author Organization [place] [address] Care Team Providers Care Drug Abuse Technician Name Role Phone Mary Anne Parekh MD, Logan Primary Care Provider + Shayne Castellanos MD Unavailable [phone] Encounter Details Date Type Department Care Team (Late st Contact Info) Description 04/21/2011 Orders Only SEP Gastro [facility] [address] [place] [phone] Charli Rmaos MD Social History Tobacco Use Types Packs/Day [...] PROCEDURE ORDERABLES Aurora l Result [facility] [address] [place] [phone] documented in this encounter Visit Diagnoses Not on filedocumented in this encounter Care Teams Drug Abuse Technician Relationship Specialty Start Date End Date Logan North MD [address] [place] [address] PCP - General 09/16/10 Shayne Castellanos MD [address] [place] [address] PCP - Hematology/Oncology Internal Medicine 06/17/15 documented as of this encounter
--- OUTSIDE RECORDS SUMMARY | 2024-11-12 11:40 | XMS_ITS | Clinical Summary ---
Author Organization [facility] Address [address], [address] [place] [address] Care Team Providers Care Pile Driving Supervisor Name Role Phone Mary Anne Parekh [...] IV(T1, N0, M1b, PSA: Less than 10, [place] 8-10) - Signed by Shayne Castellanos MD [...] on file Insurance [employer] Care Teams Pile Driving Supervisor Relationship Specialty Start Date End Date Logan North MD [address] [place] [address] PCP - General 11/06/15
--- OUTSIDE RECORDS SUMMARY | 2024-11-12 11:40 | XMS_ITS | Encounter Summary ---
Author Organization [facility] Address [address] [place] [id number] Care Team Providers Care Set Painter Name Role Phone Unavailable Primary Care Provider Unavailabl e Encounter Details Date Type Department Care Team (Late st Contact Info) Description 10/10/2019 Lab Requisition [facility] Department of Laboratory Services [address] [place] [phone] Charli Rey M.D. Clinical Labs [address] [place] [address], [address] [place] [address] Shayne Castellanos M.D. [address], [facility] [place] [address] Social History Tobacco Use Types Packs/Day Years [...] Castellanos M.D. CHEMISTRY ORDERABLES Aurora james Result [facility] [address] [place] [phone], documented in this encounter Visit Diagnoses Not on filedocumented in this encounter
--- OUTSIDE RECORDS SUMMARY | 2024-11-12 11:40 | XMS_ITS | Encounter Summary ---
Author Organization [facility] Address [address] [place] [address] Care Team Providers Care International First Officer Name Role Phone Unavailable Primary Care Provider Unavailabl e Encounter Details Date Type Department Care Team (Late st Contact Info) Description 01/08/2019 Lab Requisition [facility] Department of Laboratory Services [address] [place] [phone] Charli Rey M.D. Clinical Labs [address] [place] [address], [address] [place], [place] [id number] Shayne Castellanos M.D. [address] [employer], [facility] [address] [place] [address] Social History Tobacco Use Types Packs/Day Years [...] 98 - 107 mmol/L 01/08/2019 6:51 PM [facility] Carbon Dioxide 28 20 - 31 mmol/L 01/08/2019 6:51 PM [facility] Anion Gap 12 4 - 15 mmol/L 01/08/2019 6:51 PM [facility] Blood Urea Nitrogen 18 9 - 23 mg/dL 01/08/2019 6:51 PM [facility] Creatinine 0.95 0.60 - 1.10 mg/dL 01/08/2019 6:51 PM [facility] Bun/Creatinine Ratio 18.95 <=25.00 07/2018 6:51 PM [facility] Glucose 128(H) 74 - 106 mg/dL 01/08/2019 6:51 PM [facility] Calcium 9.5 8.3 - 10.6 mg/dL 01/08/2019 6:51 PM [facility] Albumin 4.3 3.4 - 5.0 gm/dL 01/08/2019 6:51 PM [facility] Alkaline Phosphatase 51 46 - 116 unit/L 01/08/2019 6:51 PM [facility] Alanine Aminotransferase 34 <=49 unit/L 01/08/2019 6:51 PM [facility] Aspartate Aminotransferase 33 <=33 unit/L 01/08/2019 6:51 PM [facility] Bilirubin Total 0.4 0.1 - 1.2 mg/dL 01/08/2019 6:51 PM [facility] Globulin 2.4 gm/dl 01/08/2019 6:51 PM [facility] Albumin/Globulin Ratio 2 1 - 2 01/08/2019 6:51 PM [facility] Estimated Gfr 01/08/2019 6:51 PM [facility] Comment:Estimated GFR Massiel n Albanian calculated using MDRD study equation. Estimated Gfr Non >60 >=60 mL/min/1. 73m2 01/08/2019 6:51 PM [facility] Sodium 143 136 - 145 mmol/L 01/08/2019 6:51 PM [facility] TOTAL PROTEIN LEVEL 6.7 5.7 - 8.2 gm/dL 01/08/2019 6:51 PM [facility] Blood specimen (specimen) 01/08/2019 12:38 PM EST 01/08/2019 6:28 PM EST Shayne Castellanos M.D. CHEMISTRY ORDERABLES [facility] l Result Performing Organization Address [facility] Co de Phone Number [facility] [address] [place] [address], [place] * PSA Total (01/08/2019 12:38 PM EST) Prostate Specific Antigen <0.04 <=4.00 ng/mL 01/08/2019 6:51 PM EST [facility] Comment: A new method is in use, effective 17 May 2018; results vary between patients, but on average, elevated values with the new assay will be about 20% lower than results from assays prior to 17 May 2018. Blood specimen (specimen) 01/08/2019 12:38 PM EST 01/08/2019 6:28 PM EST Shayne Castellanos M.D. CHEMISTRY ORDERABLES Aurora l Result Performing Organization Address [facility] Co de Phone Number [facility] [address] [place] [address], [place] documented in this encounter Visit Diagnoses Not on filedocumented in this encounter
--- OUTSIDE RECORDS SUMMARY | 2024-11-12 11:40 | XMS_ITS | Encounter Summary ---
Author Organization [facility] Address [address] [place] [address] Care Team Providers Care Glaze Handler Name Role Phone Unavailable Primary Care Provider Unavailabl e Encounter Details Date Type Department Care Team (Late st Contact Info) Description 07/09/2019 Lab Requisition [facility] Department of Laboratory Services [address] [place] [phone] Charli Rey M.D. Clinical Labs [address] [place] [address], [address] [place] [address] Joan Marie APRN-WEARING APPAREL SHAKER [address] [facility], [facility] [address] [place] [address] Social History Tobacco Use Types Packs/Day Years [...] <0.04 <=4.00 ng/mL 07/09/2019 6:10 PM EDT [facility] Blood specimen (specimen) 07/09/2019 10:43 AM EDT 07/09/2019 5:44 PM EDT Narrative [facility] - 07/09/2019 6:10 PM EDT A new method is in use, effective 17 May 2018; results vary between patients, but on average, elevated values with the new assay will be about 20% lower than results from assays prior to 17 May 2018. Joan Marie CHAMBER WALKER-WEARING APPAREL SHAKER CHEMISTRY ORDERABLES Final Result [facility] [address] [place] [address], [place] documented in this encounter Visit Diagnoses Not on filedocumented in this encounter
--- OUTSIDE RECORDS SUMMARY | 2024-11-12 11:40 | XMS_ITS | Encounter Summary ---
Author Organization [facility] Address [address] [place] [address] Care Team Providers Care Special Education Resource Teacher Name Role Phone Unavailable Primary Care Provider Unavailabl e Encounter Details Date Type Department Care Team (Late st Contact Info) Description 04/09/2019 Lab Requisition [facility] Department of Laboratory Services [address] [place] [phone] Charli Rey M.D. Clinical Labs [address] [place] [address], [address] [place], [place] [id number] Lisa Arreola, BLOOMING MILL SUPERVISOR-[facility] [address] [place] [address] Social History Tobacco Use Types Packs/Day Years [...] <0.04 <=4.00 ng/mL 04/09/2019 7:40 PM EST [facility] Blood specimen (specimen) 04/09/2019 10:31 AM EST 04/09/2019 7:04 PM EST Narrative [facility] - 04/09/2019 7:40 PM EST A new method is in use, effective 17 May 2018; results vary between patients, but on average, elevated values with the new assay will be about 20% lower than results from assays prior to 17 May 2018. us Lisa Arreola BLOOMING MILL SUPERVISOR-[employer] CHEMISTRY ORDERABLES Fin al Result [facility] [address] [place] [address], [place] documented in this encounter Visit Diagnoses Not on filedocumented in this encounter
--- OUTSIDE RECORDS SUMMARY | 2024-11-12 11:43 | XMS_ITS | Clinical Summary ---
Author Organization [facility] Address [address] [facility] [address] [place] [address] Phone Care Team Providers Care Basketball Commentator Name Role Phone Mary Anne Parekh MD, Harold Primary Care Provider + Shayne Castellanos MD Unavailable [phone] Allergies No known active allergies Medications oxycodone [...] 08/07/2012 N/A Surgeon: Claude Meneses MD; Location: [facility]; Service: PENILE PROSTHESIS PLACEMENT 03/29/2013 CORONARY ANGIOPLASTY WITH STENT PLACEMENT 12/04/2022 - 01/03/2023 [place], [place]; Pt states he does have 1 other blockage that needs a stent but they are monitoring it for now CARPAL TUNNEL RELEASE 04/30/2024 Hand/Wrist/Right Right Endoscopic Carpal Tunnel Release; Surgeon: Jhon Beltre MD; Location: [facility]; Service: Orthopedics HAND SURGERY 05/21/2024 Hand/Wrist/Right right hand dupuytrens fasciectomy; Surgeon: Jhon Beltre MD; Location: [facility]; Service: Orthopedics Medical History Medical History Date [...] 02/05/2022 02/05/2021, 07/19/2016, 03/29/2013 COVID-19 Vaccine ( - season) 2024 02/11/2022, 08/21/2021, 03/23/2021, Additional history exists Influenza [...] COLONOSCOPY (04/21/2011 12:00 AM EST) 04/21/2011 Impressions NOVTIMOTHYQUE - 04/21/2011 8:10 AM EST Polyp at 17cm in the distal sigmoid colon and proximal rectum (polypectomy) Diverticulosis of the sigmoid colon Otherwise normal colonoscopy to cecum [facility] 8:10 AM EST Performing Provider: Charli Ramos M.D. Referring Provider: Logan North MD us Charli Ramos MD GI PROCEDURE ORDERABLES Aurora l Result Performing Organization Address City/State/[facility] Co de Phone Number [address] [address] from Last 3 Months or Most Recently Relevant to Health Maintenance Insurance MEDICARE PPO MR [employer] MEDICARE PPO MR Advance Directives For more information, please contact: [phone] * Full Code (Latest Code Status on File) Date Activated Date Inactivated Comments 08/07/2012 4:24 PM 08/08/2012 4:41 PM Care Teams Basketball Commentator Relationship Specialty Start Date End Date Logan North MD [address] [place] [address] PCP - General 09/16/10 Shayne Castellanos MD [address] [place] [address] PCP - Hematology/Oncology Internal Medicine 06/17/15
--- OUTSIDE RECORDS SUMMARY | 2024-11-12 11:43 | XMS_ITS ---
Author Name Interface, [email or web address] lity Address [address] [place] [address] [facility] Address [address] [place] [address] Allergies and Adverse Reactions Plan Reason for Visit Encounters Diagnostic Results Medications Problems Vital Signs Notes Section
--- OUTSIDE RECORDS SUMMARY | 2024-11-12 11:43 | XMS_ITS | Clinical Summary ---
Author Organization [facility] Address [address] [place] [address] Care Team Providers Care Public Speaking Teacher Name Role Phone Mary Anne Parekh MD, [...] therelease of HIV test results or diagnoses. [id number] Allergies No known active allergies Medications [...] file [place] [id number] Care Teams Public Speaking Teacher Relationship Specialty Start Date End Date Logan North MD [address] [address] PCP - General Family Medicine 06/20/12
--- OUTSIDE RECORDS SUMMARY | 2024-11-12 11:45 | XMS_ITS ---
Author Name Interface, [id number] lity Address [address] [place] [address] [facility] Address [address] [place] [address] Allergies and Adverse Reactions Plan Reason for Visit Encounters Immunizations Diagnostic Results Medications Problems Vital Signs Notes Section
--- OUTSIDE RECORDS SUMMARY | 2024-11-12 11:45 | XMS_ITS ---
Author Name Interface, [id number] lity Address [address] [place] [address] [facility] Address [address] [place] [address] Allergies and Adverse Reactions Medication/Group Name Reaction [...] 15 MIN 10/11/2023 APPOINTMENT PORT FLUSH 15 AL N 10/11/2023 APPOINTMENT LAB 15 MIN 10/11/2023 [...] Sodiu m mmol/L 136.0 145.0 140 FINAL [facility] ([facility]), [address] [place] [address] 63995 10/10 CMP - Core Lab Potas sium mmol/L 3.5 5.1 4.6 FINAL [facility] ([facility]), [address] [place] [address] 78183 10/10 CMP - Core Lab Chlor naif mmol/L 98.0 107.0 104 FINAL [facility] ([facility]), [address] [place] [address] 76647 10/10 CMP - Core Lab CO2 mmol/L 20.0 31.0 27.7 FINAL [facility] ([facility]), [address] [place] [address] 20419 10/10 CMP - Core Lab Anion gap, mmol/ L mmol/L 4.0 15.0 8.3 FINAL [facility] ([facility]), [address] [place] [address] 11571 10/10 CMP - Core Lab BUN mg/dL 9.0 23.0 19 FINAL [facility] ([facility]), [address] [place] [address] 27985 10/10 CMP - Core Lab BUN/C reati nine ratio 0.0 25.0 18.3 FINAL [facility] ([facility]), [address] [place] [address] 51969 10/10 CMP - Core Lab Creat inine mg/dL 0.73 1.18 1.04 FINAL [facility] ([facility]), [address] [place] [address] 56322 10/10 CMP - Core Lab GFR non-A frica n Ameri can, estim ated mL/min /1.73m >60.0 FINAL [facility] ([facility]), [address] [place] [address] 41825 10/10 CMP - Core Lab GFR Afric an Ameri can, estim ated mL/min /1.73m >60.0 FINAL [facility] ([facility]), [address] [place] [address] 08065 10/10 CMP - Core Lab Gluco se mg/dL 74.0 106.0 110 High FINAL [facility] ([facility]), [address] [place] [address] [place] [address] 10/10 CMP - Core Lab Calci um mg/dL 8.7 10.6 9.6 FINAL [facility] ([facility]), [address] [place] [address] 66557 10/10 CMP - Core Lab Album in g/dL 3.4 5.0 3.7 FINAL [facility] ([facility]), [address] [place] [address] [place] [address] 10/10 CMP - Core Lab Total prote in g/dL 5.7 8.2 6.4 FINAL [facility] ([facility]), [address] [place] [address] [place] [address] 10/10 CMP - Core Lab A/G ratio 1.0 2.0 1.4 FINAL [facility] ([facility]), [address] [place] [address] 88538 10/10 CMP - Core Lab Alkal ine phosp hatas e U/L 46.0 116.0 33 Low FINAL [facility] ([facility]), [address] [place] [address] 16154 10/10 CMP - Core Lab ALT/S GPT U/L 10.0 49.0 27 FINAL [facility] ([facility]), [address] [place] [address] 42156 10/10 CMP - Core Lab AST/S GOT U/L 0.0 34.0 25 FINAL [facility] ([facility]), [address] [place] [address] 10886 10/10 CMP - Core Lab Bilir ubin, total mg/dL 0.3 1.2 0.4 FINAL [facility] ([facility]), [address] [place] [address] 19039 10/10 PSA, total ng/mL 0.04 FINAL [facility] ([facility]), [address] [place] [address] 46773 10/10 CBC w/ auto diff WBC 10*3/u L 4.2 9.1 3.8 Low FINAL [facility] ([facility]), [address], [address] [place] [address] 76286 10/10 CBC w/ auto diff Alan # (ANC) 10*3/u L 1.78 5.38 2.36 FINAL [facility] ([facility]), [address], [address] [place] [address] 30968 10/10 CBC w/ auto diff LY # 10*3/u L 1.32 3.57 0.77 Low FINAL [facility] ([facility]), [address], [address] [place] [address] 63868 10/10 CBC w/ auto diff MO # 10*3/u L 0.3 0.82 0.46 FINAL [facility] ([facility]), [address], [address] [place] [address] 86597 10/10 CBC w/ auto diff EO # 10*3/u lL 0.04 0.54 0.23 FINAL Shayne Castellanos [facility] ([facility]), [address], [address] [place] [address] 10/10 CBC w/ auto diff BA # 10*3/u L 0.01 0.08 0.01 FINAL [facility] ([facility]), [address], [address] [place] [address] 10/10 CBC w/ auto diff Alan % % 34.0 67.9 61.6 FINAL [facility] ([facility]), [address], [address] [place] [address] 10/10 CBC w/ auto diff LY % % 21.8 53.1 20.1 Low FINAL Sh[facility] (T), [address], [address] [place] [address] 10/10 CBC w/ auto diff MO % % 5.3 12.2 12.0 FINAL [facility] ([facility]), [address], [address] [place] [address] 10/10 CBC w/ auto diff EO % % 0.8 7.0 6.0 FINAL [facility] (T), [address], [address] [place] [address] 10/10 CBC w/ auto diff BA % % 0.2 1.2 0.3 FINAL [facility] (T), [address], [address] [place] [address] 10/10 CBC w/ auto diff RBC 10*6/u L 4.63 6.08 3.70 Low FINAL Sh[facility] ([facility]), [address], [address] [place] [address] 10/10 CBC w/ auto diff HGB g/dL 13.7 17.5 11.2 Low FINAL [facility] ([facility]), [address], [address] [place] [address] 10/10 CBC w/ auto diff HCT % 40.1 51.0 33.4 Low FINAL [facility] ([facility]), [address], [address] [facility] [address] 10/10 CBC w/ auto diff MCV fL 79.0 92.2 90.3 FINAL [facility] (T), [address], [address] [facility] [address] 10/10 CBC w/ auto diff MCH pg 25.7 32.2 30.3 FINAL [facility] (T), [address], [address] [facility] [address] 10/10 CBC w/ auto diff MCHC g/dL 32.3 36.5 33.5 FINAL [facility] (T), [address], [address] [facility] [address] 10/10 CBC w/ auto diff RDW-C V, % % 11.6 14.4 14.4 FINAL [facility] (T), [address], [address] [facility] [address] 10/10 CBC w/ auto diff PLT 10*3/u L 163.0 337.0 154.0 Low FINAL [facility] (T), [address], [address] [place] [address] 27806 10/10 Darren tin ng/mL 10.5 307.3 207.9 FINAL [facility] ([facility]), [facility] [address] 10/10 TIBC and perce nt sat w/ iron panel Iron / FE ug/dL 65.0 175.0 84 FINAL [facility] ([facility]), [facility] [address] 10/10 TIBC and perce nt sat w/ iron panel TIBC ug/dL 250.0 425.0 398 FINAL [facility] ([facility]), [address] [place] [address] 61213 10/10 TIBC and perce nt sat w/ iron panel Iron, % satur ation % 20.0 50.0 21 FINAL [facility] ([facility]), [address] [facility] [address] 10/24 Lab Repor t See elastic attacher coverstitch d 01/10 PSA, total ng/mL 0.[address] [facility] ([facility]), [address] [facility] [address] 01/10 CBC w/ auto diff WBC 10*3/u L 4.2 9.1 4.1 Low FINAL [facility] ([facility]), [address], [address] [place] [address] 23236 01/10 CBC w/ auto diff Alan # (ANC) 10*3/u L 1.78 5.38 2.90 FINAL [facility] (T), [address], [address] [place] [address] 01/10 CBC w/ auto diff LY # 10*3/u L 1.32 3.57 0.69 Low FINAL [facility] ([facility]), [address], [address] [place] [address] 82120 01/10 CBC w/ auto diff MO # 10*3/u L 0.3 0.82 0.37 FINAL [facility] ([facility]), [address], [address] [place] [address] 95791 01/10 CBC w/ auto diff EO # 10*3/u lL 0.04 0.54 0.11 FINAL [facility] (T), [address], [address] [place] [address] 84365 01/10 CBC w/ auto diff BA # 10*3/u L 0.01 0.08 0.01 FINAL [facility] (T), [address], [address] [place] [address] 41501 01/10 CBC w/ auto diff Alan % % 34.0 67.9 71.1 High FINAL [facility] (T), [address], [address] [place] [address] 25040 11/07 /2023 CBC w/ auto diff LY % % 21.8 53.1 16.9 Low FINAL [facility] ([facility]), [address], [address] [place] [address] 01/10 CBC w/ auto diff MO % % 5.3 12.2 9.1 FINAL [facility] ([facility]), [address], [address] [place] [address] 01/10 CBC w/ auto diff EO % % 0.8 7.0 2.7 FINAL [facility] ([facility]), [address], [address] [place] [address] 01/10 CBC w/ auto diff BA % % 0.2 1.2 0.2 FINAL [facility] ([facility]), [address], [address] [place] [address] 01/10 CBC w/ auto diff RBC 10*6/u L 4.63 6.08 3.46 Low FINAL [facility] ([facility]), [address], [address] [place] [address] 01/10 CBC w/ auto diff HGB g/dL 13.7 17.5 10.5 Low FINAL [facility] ([facility]), [address], [address] [place] [address] 01/10 CBC w/ auto diff HCT % 40.1 51.0 31.3 Low FINAL [facility] ([facility]), [address], [address] [place] [address] 01/10 CBC w/ auto diff MCV fL 79.0 92.2 90.5 FINAL [facility] ([facility]), [address], [address] [place] [address] 01/10 CBC w/ auto diff MCH pg 25.7 32.2 30.3 FINAL [facility] ([facility]), [address], [address] [place] [address] 01/10 CBC w/ auto diff MCHC g/dL 32.3 36.5 33.5 FINAL [facility] ([facility]), [address], [address] [facility] [address] 01/10 CBC w/ auto diff RDW-C V, % % 11.6 14.4 12.7 FINAL [facility] (T), [address], [address] [facility] [address] 01/10 CBC w/ auto diff PLT 10*3/u L 163.0 337.0 182.0 FINAL [facility] (T), [address], [address] [facility] [address] 01/10 CMP - Core Lab Sodiu m mmol/L 136.0 145.0 139 FINAL [facility] ([facility]), [address] [place] [address] 92386 01/10 CMP - Core Lab Potas sium mmol/L 3.5 5.1 4.1 FINAL [facility] ([facility]), [address] [place] [address] [place] [address] 01/10 CMP - Core Lab Chlor naif mmol/L 98.0 107.0 105 FINAL [facility] ([facility]), [address] [place] [address] [place] [address] 01/10 CMP - Core Lab CO2 mmol/L 20.0 31.0 27.2 FINAL [facility] ([facility]), [address] [place] [address] [place] [address] 01/10 CMP - Core Lab Anion gap, mmol/ L mmol/L 4.0 15.0 6.8 FINAL [facility] ([facility]), [address] [place] [address] [place] [address] 01/10 CMP - Core Lab BUN mg/dL 9.0 23.0 31 High FINAL [facility] ([facility]), [address] [place] [address] [place] [address] 01/10 CMP - Core Lab BUN/C reati nine ratio 0.0 25.0 28.7 High FINAL [facility] ([facility]), [address] [place] [address] [place] [address] 01/10 CMP - Core Lab Creat inine mg/dL 0.73 1.18 1.08 [facility]AL [facility]), [address] [place] [address] [place] [address] 01/10 CMP - Core Lab GFR non-A frica n Ameri can, estim ated mL/min /1.73m >60.0 [facility]AL [facility] ([facility]), [address] [place] [address] 29493 01/10 CMP - Core Lab GFR Afric an Ameri can, estim ated mL/min /1.73m >60.0 FINAL [facility] ([facility]), [address] [place] [address] 67543 01/10 CMP - Core Lab Gluco se mg/dL 74.0 106.0 103 FINAL [facility] ([facility]), [address] [place] [address] [place] [address] 01/10 CMP - Core Lab Calci um mg/dL 8.7 10.6 10.1 FINAL [facility] ([facility]), [address] [place] [address] [place] [address] 01/10 CMP - Core Lab Album in g/dL 3.4 5.0 4.0 FINAL [facility] ([facility]), [address] [place] [address] [place] [address] 01/10 CMP - Core Lab Total prote in g/dL 5.7 8.2 6.7 FINAL [facility] ([facility]), [address] [place] [address] [place] [address] 01/10 CMP - Core Lab A/G ratio 1.0 2.0 1.5 FINAL [facility] ([facility]), [address] [place] [address] [place] [address] 01/10 CMP - Core Lab Alkal ine phosp hatas e U/L 46.0 116.0 36 Low FINAL [facility] ([facility]), [address] [place] [address] [place] [address] 01/10 CMP - Core Lab ALT/S GPT U/L 10.0 49.0 22 FINAL [facility] ([facility]), [address] [place] [address] [place] [address] 01/10 CMP - Core Lab AST/S GOT U/L 0.0 34.0 23 FINAL [facility] ([facility]), [address] [place] [address] 75436 01/10 CMP - Core Lab Bilir ubin, total mg/dL 0.3 1.2 0.4 FINAL [facility] ([facility]), [address] [place] [address] 43885 04/12 CMP - Core Lab Sodiu m mmol/L 136.0 145.0 140 FINAL [facility] ([facility]), [address] [place] [address] 21781 04/12 CMP - Core Lab Potas sium mmol/L 3.5 5.1 4.7 FINAL [facility] ([facility]), [address] [place] [address] 27577 04/12 CMP - Core Lab Chlor naif mmol/L 98.0 107.0 105 FINAL [facility] ([facility]), [address] [place] [address] [place] [address] 04/12 CMP - Core Lab CO2 mmol/L 20.0 31.0 25.7 FINAL [facility] ([facility]), [address] [place] [address] [place] [address] 04/12 CMP - Core Lab Anion gap, mmol/ L mmol/L 4.0 15.0 9.3 FINAL [facility] ([facility]), [address] [place] [address] [place] [address] 04/12 CMP - Core Lab BUN mg/dL 9.0 23.0 20 FINAL [facility] ([facility]), [address] [place] [address] [place] [address] 04/12 CMP - Core Lab BUN/C reati nine ratio 0.0 25.0 19.0 FINAL [facility] ([facility]), [address] [place] [address] 37148 04/12 CMP - Core Lab Creat inine mg/dL 0.73 1.18 1.05 FINAL [facility] ([facility]), [address] [place] [address] 15505 04/12 CMP - Core Lab GFR non-A frica n Ameri can, estim ated mL/min /1.73m >60.0 FINAL [facility] ([facility]), [address] [place] [address] 19341 04/12 CMP - Core Lab GFR Afric an Ameri can, estim ated mL/min /1.73m >60.0 FINAL [facility] ([facility]), [address] [place] [address] 06790 04/12 CMP - Core Lab Gluco se mg/dL 74.0 106.0 109 High FINAL [facility] ([facility]), [address] [place] [address] 34850 04/12 CMP - Core Lab Calci um mg/dL 8.7 10.6 10.0 FINAL [facility] ([facility]), [address] [place] [address] 40605 04/12 CMP - Core Lab Album in g/dL 3.4 5.0 3.8 FINAL [facility] ([facility]), [address] [place] [address] 77526 04/12 CMP - Core Lab Total prote in g/dL 5.7 8.2 6.6 FINAL [facility] ([facility]), [address] [place] [address] 53164 04/12 CMP - Core Lab A/G ratio 1.0 2.0 1.4 FINAL [facility] ([facility]), [address] [place] [address] 55708 04/12 CMP - Core Lab Alkal ine phosp hatas e U/L 46.0 116.0 35 Low FINAL [facility] ([facility]), [address] [place] [address] 38779 04/12 CMP - Core Lab ALT/S GPT U/L 10.0 49.0 34 FINAL [facility] ([facility]), [address] [facility] [address] 04/12 CMP - Core Lab AST/S GOT U/L 0.0 34.0 38 High FINAL [facility] ([facility]), [facility] [address] 04/12 CMP - Core Lab Bilir ubin, total mg/dL 0.3 1.2 0.4 FINAL [facility] ([facility]), [address] [place] [address] 86507 04/12 PSA, total ng/mL 0.04 FINAL [facility] ([facility]), [address] [place] [address] 50065 04/12 CBC w/ auto diff WBC 10*3/u L 4.2 9.1 4.7 FINAL [facility] ([facility]), [address], [address] [place], [place] [address] 04/12 CBC w/ auto diff Alan # (ANC) 10*3/u L 1.78 5.38 3.26 FINAL [facility] ([facility]), [address], [address] [place], [place] [address] 04/12 CBC w/ auto diff LY # 10*3/u L 1.32 3.57 0.88 Low FINAL [facility] ([facility]), [address], [address] [place], [place] [address] 04/12 CBC w/ auto diff MO # 10*3/u L 0.3 0.82 0.42 FINAL [facility] ([facility]), [address], [address] [place], [place] [address] 04/12 CBC w/ auto diff EO # 10*3/u lL 0.04 0.54 0.15 FINAL [facility] ([facility]), [address], [address] [place], [place] [address] 04/12 CBC w/ auto diff BA # 10*3/u L 0.01 0.08 0.02 FINAL [facility] ([facility]), [address], [address] [place] [address] 04/12 CBC w/ auto diff Alan % % 34.0 67.9 68.9 High FINAL Shay[facility] ([facility]), [address], [address] [place] [address] 04/12 CBC w/ auto diff LY % % 21.8 53.1 18.6 Low FINAL [facility] ([facility]), [address], [address] [place] [address] 04/12 CBC w/ auto diff MO % % 5.3 12.2 8.9 FINAL [facility] ([facility]), [address], [address] [place] [address] 04/12 CBC w/ auto diff EO % % 0.8 7.0 3.2 FINAL [facility] ([facility]), [address], [address] [place] [address] 04/12 CBC w/ auto diff BA % % 0.2 1.2 0.4 FINAL [facility] ([facility]), [address], [address] [place] [address] 04/12 CBC w/ auto diff RBC 10*6/u L 4.63 6.08 3.84 Low FINAL [facility] ([facility]), [address], [address] [place] [address] 04/12 CBC w/ auto diff HGB g/dL 13.7 17.5 11.4 Low FINAL [facility] ([facility]), [address], [address] [place] [address] 04/12 CBC w/ auto diff HCT % 40.1 51.0 35.6 Low FINAL Shay[facility] ([facility]), [address], [address] [place] [address] 04/12 CBC w/ auto diff MCV fL 79.0 92.2 92.7 High [facility]AL [facility] [address], [address] [place] [address] 04/12 CBC w/ auto diff MCH pg 25.7 32.2 29.7 FINAL Sh[facility] (T), [address], [address] [place] [address] 04/12 CBC w/ auto diff MCHC g/dL 32.3 36.5 32.0 Low FINAL Sh[facility] ([facility]), [address], [address] [place] [address] 04/12 CBC w/ auto diff RDW-C V, % % 11.6 14.4 13.7 FINAL Sh[facility] (T), [address], [address] [place] [address] 04/12 CBC w/ auto diff PLT 10*3/u L 163.0 337.0 177.0 FINAL Sh[facility] ([facility]), [address], [address] [place] [address] 07/10 CBC w/ auto diff WBC 10*3/u L 4.2 9.1 5.3 FINAL [facility] ([facility]), [address], [address] [place] [address] 07/10 CBC w/ auto diff Alan # (ANC) 10*3/u L 1.78 5.38 3.62 FINAL [facility] ([facility]), [address], [address] [place] [address] 07/10 CBC w/ auto diff LY # 10*3/u L 1.32 3.57 0.96 Low FINAL [facility] ([facility]), [address], [address] [place] [address] 07/10 CBC w/ auto diff MO # 10*3/u L 0.3 0.82 0.47 FINAL [facility] ([facility]), [address], [address] [place] [address] 07/10 CBC w/ auto diff EO # 10*3/u lL 0.04 0.54 0.24 FINAL [facility] ([facility]), [address], [address] [place] [address] 07/10 CBC w/ auto diff BA # 10*3/u L 0.01 0.08 0.01 FINAL [facility] ([facility]), [address], [address] [place] [address] 07/10 CBC w/ auto diff Alan % % 34.0 67.9 68.3 High FINAL [facility] ([facility]), [address], [address] [place] [address] 07/10 CBC w/ auto diff LY % % 21.8 53.1 18.1 Low FINAL [facility] ([facility]), [address], [address] [place] [address] 07/10 CBC w/ auto diff MO % % 5.3 12.2 8.9 FINAL [facility] ([facility]), [address], [address] [place] [address] 07/10 CBC w/ auto diff EO % % 0.8 7.0 4.5 FINAL [facility] ([facility]), [address], [address] [place] [address] 07/10 CBC w/ auto diff BA % % 0.2 1.2 0.2 FINAL [facility] ([facility]), [address], [address] [place] [address] 07/10 CBC w/ auto diff RBC 10*6/u L 4.63 6.08 4.05 Low FINAL [facility] ([facility]), [address], [address] [place] [address] 07/10 CBC w/ auto diff HGB g/dL 13.7 17.5 12.1 Low FINAL [facility] ([facility]), [address], [address] [place] [address] 07/10 CBC w/ auto diff HCT % 40.1 51.0 37.2 Low FINAL [facility] (T), [address], [address] [place] [id number] 07/10 CBC w/ auto diff MCV fL 79.0 92.2 91.9 FINAL [facility] (T), [address], [address] [place] [address] 07/10 CBC w/ auto diff MCH pg 25.7 32.2 29.9 FINAL [facility] (T), [address], [address] [place] [id number] 07/10 CBC w/ auto diff MCHC g/dL 32.3 36.5 32.5 FINAL [facility] ([facility]), [address], [address] [place] [address] 07/10 CBC w/ auto diff RDW-C V, % % 11.6 14.4 13.6 FINAL [facility] (T), [address], [address] [place] [id number] 07/10 CBC w/ auto diff PLT 10*3/u L 163.0 337.0 166.0 FINAL [facility] ([facility]), [address], [address] [place] [id number] 07/10 PSA, total ng/mL 0.04 FINAL [facility] ([facility]), [address] [place] [id number] 07/10 CMP - Core Lab Sodiu m mmol/L 136.0 145.0 140 FINAL [facility] ([facility]), [facility] [place] [address] 07/10 CMP - Core Lab Potas sium mmol/L 3.5 5.1 4.4 FINAL [facility] ([facility]), [facility] [place] [id number] 07/10 CMP - Core Lab Chlor naif mmol/L 98.0 107.0 105 FINAL [facility] ([facility]), [address] [place] [address] [place] [address] 07/10 CMP - Core Lab CO2 mmol/L 20.0 31.0 25.7 FINAL [facility] ([facility]), [address] [place] [address] [place] [address] 07/10 CMP - Core Lab Anion gap, mmol/ L mmol/L 4.0 15.0 9.3 FINAL [facility] ([facility]), [address] [place] [address] [place] [address] 07/10 CMP - Core Lab BUN mg/dL 9.0 23.0 23 FINAL [facility] ([facility]), [address] [place] [address] 07/10 CMP - Core Lab BUN/C reati nine ratio 0.0 25.0 22.8 FINAL [facility] ([facility]), [address] [place] [address] 07/10 CMP - Core Lab Creat inine mg/dL 0.73 1.18 1.01 FINAL [facility] ([facility]), [address] [place] [address] [place] [address] 07/10 CMP - Core Lab eGFR, mL/mi n/1.7 3 mL/min /1.73m 60.0 0.0 >60.0 FINAL [facility] ([facility]), [address] [place] [address] [place] [address] 07/10 CMP - Core Lab Gluco se mg/dL 74.0 106.0 124 High FINAL [facility] ([facility]), [address] [place] [address] [place] [address] 07/10 CMP - Core Lab Calci um mg/dL 8.7 10.6 10.4 FINAL [facility] ([facility]), [address] [place] [address] [place] [address] 07/10 CMP - Core Lab Album in g/dL 3.4 5.0 4.1 FINAL [facility] ([facility]), [address] [place] [address] [place] [address] 07/10 CMP - Core Lab Total prote in g/dL 5.7 8.2 7.1 FINAL [facility] ([facility]), [address] [place] [address] [place] [address] 07/10 CMP - Core Lab A/G ratio 1.0 2.0 1.4 FINAL [facility] ([facility]), [address] [place] [address] [place] [address] 07/10 CMP - Core Lab Alkal ine phosp hatas e U/L 46.0 116.0 38 Low FINAL [facility] ([facility]), [address] [place] [address] [place] [address] 07/10 CMP - Core Lab ALT/S GPT U/L 10.0 49.0 23 FINAL [facility] ([facility]), [address] [place] [address] [place] [address] 07/10 CMP - Core Lab AST/S GOT U/L 0.0 34.0 26 FINAL [facility] ([facility]), [address] [place] [address] [place] [address] 07/10 CMP - Core Lab Bilir ubin, total mg/dL 0.3 1.2 0.4 FINAL [facility] ([facility]), [address] [place] [address] [place] [address] 10/10 PSA, total ng/mL 0.04 FINAL [facility] ([facility]), [address] [place] [address] [place] [address] 10/10 CMP - Core Lab Sodiu m mmol/L 136.0 145.0 139 FINAL [facility] ([facility]), [address] [place] [address] [place] [address] 10/10 CMP - Core Lab Potas sium mmol/L 3.5 5.1 4.2 FINAL [facility] ([facility]), [address] [place] [address] [place] [address] 10/10 CMP - Core Lab Chlor naif mmol/L 98.0 107.0 107 FINAL [facility] ([facility]), [address] [place] [address] [place] [address] 10/10 CMP - Core Lab CO2 mmol/L 20.0 31.0 27.3 FINAL [facility] ([facility]), [address] [place] [address] [place] [address] 10/10 CMP - Core Lab Anion gap, mmol/ L mmol/L 4.0 15.0 4.7 FINAL [facility] ([facility]), [address] [place] [address] [place] [address] 10/10 CMP - Core Lab BUN mg/dL 9.0 23.0 15 FINAL [facility] ([facility]), [address] [place] [address] [place] [address] 10/10 CMP - Core Lab BUN/C reati nine ratio 0.0 25.0 15.3 FINAL [facility] ([facility]), [address] [place] [address] [place] [address] 10/10 CMP - Core Lab Creat inine mg/dL 0.73 1.18 0.98 FINAL [facility] ([facility]), [address] [place] [address] [place] [address] 10/10 CMP - Core Lab eGFR, mL/mi n/1.7 3 mL/min /1.73m 60.0 0.0 >60.0 FINAL [facility] ([facility]), [address] [place] [address] [place] [address] 10/10 CMP - Core Lab Gluco se mg/dL 74.0 106.0 95 FINAL [facility] ([facility]), [address] [place] [address] [place] [address] 10/10 CMP - Core Lab Calci um mg/dL 8.7 10.6 9.5 FINAL [facility] ([facility]), [address] [place] [address] [place] [address] 10/10 CMP - Core Lab Album in g/dL 3.4 5.0 3.8 FINAL [facility] ([facility]), [address] [place] [address] [place] [address] 10/10 CMP - Core Lab Total prote in g/dL 5.7 8.2 6.5 FINAL [facility] ([facility]), [address] [place] [address] 10/10 CMP - Core Lab A/G ratio 1.0 2.0 1.4 FINAL [facility] ([facility]), [address] [place] [address] 10/10 CMP - Core Lab Alkal ine phosp hatas e U/L 46.0 116.0 44 Low FINAL [facility] ([facility]), [address] [place] [address] 10/10 CMP - Core Lab ALT/S GPT U/L 10.0 49.0 19 FINAL [facility] ([facility]), [address] [place] [address] 10/10 CMP - Core Lab AST/S GOT U/L 0.0 34.0 23 FINAL [facility] ([facility]), [address] [place] [address] 10/10 CMP - Core Lab Bilir ubin, total mg/dL 0.3 1.2 0.4 FINAL [facility] ([facility]), [address] [place] [address] 10/10 CBC w/ auto diff WBC 10*3/u L 4.2 9.1 4.4 FINAL [facility] ([facility]), [address], [address] [place] [address] 10/10 CBC w/ auto diff Alan # (ANC) 10*3/u L 1.78 5.38 3.10 FINAL [facility] ([facility]), [address], [address] [facility] [address] 10/10 CBC w/ auto diff LY # 10*3/u L 1.32 3.57 0.74 Low FINAL [facility] ([facility]), [address], [address] [facility] [address] 10/10 CBC w/ auto diff MO # 10*3/u L 0.3 0.82 0.36 FINAL Shayne [facility] ([facility]), [address], [address] [place] [address] 10/10 CBC w/ auto diff EO # 10*3/u lL 0.04 0.54 0.14 FINAL Shay[facility] ([facility]), [address], [address] [place] [address] 10/10 CBC w/ auto diff BA # 10*3/u L 0.01 0.08 0.02 FINAL Sh[facility] ([facility]), [address], [address] [place] [address] 10/10 CBC w/ auto diff Alan % % 34.0 67.9 71.0 High FINAL Shay[facility] (T), [address], [address] [place] [address] 10/10 CBC w/ auto diff LY % % 21.8 53.1 17.0 Low FINAL Sh[facility] ([facility]), [address], [address] [place] [address] 10/10 CBC w/ auto diff MO % % 5.3 12.2 8.3 FINAL [facility] ([facility]), [address], [address] [place] [address] 10/10 CBC w/ auto diff EO % % 0.8 7.0 3.2 FINAL Sh[facility] ([facility]), [address], [address] [place] [address] 10/10 CBC w/ auto diff BA % % 0.2 1.2 0.5 FINAL [facility] ([facility]), [address], [address] [place] [address] 10/10 CBC w/ auto diff RBC 10*6/u L 4.63 6.08 4.04 Low FINAL [facility] ([facility]), [address], [address] [place] [address] 10/10 CBC w/ auto diff HGB g/dL 13.7 17.5 12.4 Low FINAL [facility] (T), [address], [address] [place] [address] 10/10 CBC w/ auto diff HCT % 40.1 51.0 38.0 Low FINAL [facility] ([facility]), [address], [address] [place] [address] 10/10 CBC w/ auto diff MCV fL 79.0 92.2 94.1 High FINAL [facility] ([facility]), [address], [address] [place] [address] 10/10 CBC w/ auto diff MCH pg 25.7 32.2 30.7 FINAL [facility] (T), [address], [address] [place] [address] 10/10 CBC w/ auto diff MCHC g/dL 32.3 36.5 32.6 FINAL [facility] ([facility]), [address], [address] [place] [address] 10/10 CBC w/ auto diff RDW-C V, % % 11.6 14.4 13.9 FINAL [facility] (T), [address], [address] [place] [address] 10/10 CBC w/ auto diff PLT 10*3/u L 163.0 337.0 174.0 FINAL [facility] ([facility]), [address], [address] [place] [address] 01/10 CBC w/ auto diff WBC 10*3/u L 4.2 9.1 5.7 FINAL [facility] ([facility]), [address], [address] [place] [address] 01/10 CBC w/ auto diff Alan # (ANC) 10*3/u L 1.78 5.38 3.77 FINAL [facility] ([facility]), [address], [address] [place] [address] 01/10 CBC w/ auto diff LY # 10*3/u L 1.32 3.57 1.16 Low FINAL [facility] ([facility]), [address], [address] [facility] [address] 01/10 CBC w/ auto diff MO # 10*3/u L 0.3 0.82 0.49 FINAL [facility] ([facility]), [address], [address] [facility] [address] 01/10 CBC w/ auto diff EO # 10*3/u lL 0.04 0.54 0.25 FINAL [facility] ([facility]), [address], [address] [facility] [address] 01/10 CBC w/ auto diff BA # 10*3/u L 0.01 0.08 0.03 FINAL [facility] ([facility]), [address], [address] [place], [place] [id number] 01/10 CBC w/ auto diff Alan % % 34.0 67.9 66.1 FINAL [facility] ([facility]), [address], [address] [place] [id number] 01/10 CBC w/ auto diff LY % % 21.8 53.1 20.4 Low FINAL [facility] (T), [address], [address] [place] [id number] 01/10 CBC w/ auto diff MO % % 5.3 12.2 8.6 FINAL [facility] ([facility]), [address], [address] [place] [id number] 01/10 CBC w/ auto diff EO % % 0.8 7.0 4.4 FINAL [facility] ([facility]), [address], [address] [place] [address] 01/10 CBC w/ auto diff BA % % 0.2 1.2 0.5 FINAL [facility] ([facility]), [address], [address] [facility] [address] 01/10 CBC w/ auto diff RBC 10*6/u L 4.63 6.08 4.78 FINAL [facility] ([facility]), [address], [address] [facility] [address] 01/10 CBC w/ auto diff HGB g/dL 13.7 17.5 14.4 FINAL [facility] ([facility]), [address], [address] [place] [address] 01/10 CBC w/ auto diff HCT % 40.1 51.0 43.0 FINAL [facility] ([facility]), [address], [address] [place] [id number] 01/10 CBC w/ auto diff MCV fL 79.0 92.2 90.0 FINAL [facility] ([facility]), [address], [address] [place] [id number] 01/10 CBC w/ auto diff MCH pg 25.7 32.2 30.1 FINAL [facility] ([facility]), [address], [address] [place] [id number] 01/10 CBC w/ auto diff MCHC g/dL 32.3 36.5 33.5 FINAL [facility] ([facility]), [address], [address] [place] [id number] 01/10 CBC w/ auto diff RDW-C V, % % 11.6 14.4 13.2 FINAL [facility] ([facility]), [address], [address] [place] [id number] 01/10 CBC w/ auto diff PLT 10*3/u L 163.0 337.0 191.0 FINAL [facility] ([facility]), [address], [address] [place] [phone] 01/10 PSA, total ng/mL < 0.04 FINAL [facility] ([facility]), [address] [facility] [address] 01/10 CMP - Core Lab Sodiu m mmol/L 136.0 145.0 138 FINAL [facility] ([facility]), [address] [place] [address] [place] [address] 01/10 CMP - Core Lab Potas sium mmol/L 3.5 5.1 4.2 FINAL [facility] ([facility]), [address] [place] [address] [place] [address] 01/10 CMP - Core Lab Chlor naif mmol/L 98.0 107.0 106 FINAL [facility] ([facility]), [address] [place] [address] [place] [address] 01/10 CMP - Core Lab CO2 mmol/L 20.0 31.0 27.0 FINAL [facility] ([facility]), [address] [place] [address] [place] [address] 01/10 CMP - Core Lab Anion gap, mmol/ L mmol/L 4.0 15.0 5.0 FINAL [facility] ([facility]), [address] [place] [address] [place] [address] 01/10 CMP - Core Lab BUN mg/dL 9.0 23.0 18 FINAL [facility] ([facility]), [address] [place] [address] [place] [address] 01/10 CMP - Core Lab BUN/C reati nine ratio 0.0 25.0 18.6 FINAL [facility] ([facility]), [address] [place] [address] [place] [address] 01/10 CMP - Core Lab Creat inine mg/dL 0.73 1.18 0.97 FINAL [facility] ([facility]), [address] [place] [address] [place] [address] 01/10 CMP - Core Lab eGFR, mL/mi n/1.7 3 mL/min /1.73m 60.0 0.0 >60.0 FINAL [facility] ([facility]), [address] [place] [address] [place] [address] 01/10 CMP - Core Lab Gluco se mg/dL 74.0 106.0 104 FINAL [facility] ([facility]), [address] [place] [address] [place] [address] 01/10 CMP - Core Lab Calci um mg/dL 8.7 10.6 10.1 FINAL [facility] ([facility]), [address] [place] [address] [place] [address] 01/10 CMP - Core Lab Album in g/dL 3.4 5.0 4.2 FINAL [facility] ([facility]), [address] [place] [address] [place] [address] 01/10 CMP - Core Lab Total prote in g/dL 5.7 8.2 7.3 FINAL [facility] ([facility]), [address] [place] [address] [place] [address] 01/10 CMP - Core Lab A/G ratio 1.0 2.0 1.4 FINAL [facility] ([facility]), [address] [place] [address] [place] [address] 01/10 CMP - Core Lab Alkal ine phosp hatas e U/L 46.0 116.0 48 FINAL [facility] ([facility]), [address] [place] [address] [place] [address] 01/10 CMP - Core Lab ALT/S GPT U/L 10.0 49.0 23 FINAL [facility] ([facility]), [address] [place] [address] [place] [address] 01/10 CMP - Core Lab AST/S GOT U/L 0.0 34.0 22 FINAL [facility] ([facility]), [address] [place] [address] [place] [address] 01/10 CMP - Core Lab Bilir ubin, total mg/dL 0.3 1.2 0.5 FINAL [facility] ([facility]), [address] [place] [address] [place] [address] 04/11 CBC w/ auto diff WBC 10*3/u L 4.2 9.1 3.8 Low FINAL [facility] ([facility]), [address], [address] [facility] [place] [address] 04/11 CBC w/ auto diff Alan # (ANC) 10*3/u L 1.78 5.38 2.53 [facility] (T), [address], [address] [place] [address] 04/11 CBC w/ auto diff LY # 10*3/u L 1.32 3.57 0.70 Low FINAL Shayne [facility] (T), [address], [address] [place] [address] 04/11 CBC w/ auto diff MO # 10*3/u L 0.3 0.82 0.40 FINAL Sh[facility] (T), [address], [address] [place] [address] 04/11 CBC w/ auto diff EO # 10*3/u lL 0.04 0.54 0.17 FINAL Shay[facility] (T), [address], [address] [place] [address] 04/11 CBC w/ auto diff BA # 10*3/u L 0.01 0.08 0.01 FINAL Shay[facility] (T), [address], [address] [place] [address] 04/11 CBC w/ auto diff Alan % % 34.0 67.9 66.3 FINAL Sh[facility] (T), [address], [address] [place] [address] 04/11 CBC w/ auto diff LY % % 21.8 53.1 18.4 Low FINAL Sh[facility] (T), [address], [address] [place] [address] 04/11 CBC w/ auto diff MO % % 5.3 12.2 10.5 FINAL Sh[facility] (T), [address], [address] [place] [address] 04/11 CBC w/ auto diff EO % % 0.8 7.0 4.5 FINAL Shay[facility] (T), [address], [address] [place] [address] 04/11 CBC w/ auto diff BA % % 0.2 1.2 0.3 FINAL [facility] (T), [address], [address] [place] [address] 04/11 CBC w/ auto diff RBC 10*6/u L 4.63 6.08 3.66 Low FINAL [facility] (T), [address], [address] [place] [address] 04/11 CBC w/ auto diff HGB g/dL 13.7 17.5 11.4 Low FINAL [facility] (T), [address], [address] [place] [address] 04/11 CBC w/ auto diff HCT % 40.1 51.0 34.8 Low FINAL [facility] (T), [address], [address] [place] [address] 04/11 CBC w/ auto diff MCV fL 79.0 92.2 95.1 High FINAL [facility] (T), [address], [address] [place] [address] 04/11 CBC w/ auto diff MCH pg 25.7 32.2 31.1 FINAL [facility] (T), [address], [address] [place] [address] 04/11 CBC w/ auto diff MCHC g/dL 32.3 36.5 32.8 FINAL [facility] (T), [address], [address] [place] [address] 04/11 CBC w/ auto diff RDW-C V, % % 11.6 14.4 13.3 FINAL [facility] (T), [address], [address] [place] [address] 04/11 CBC w/ auto diff PLT 10*3/u L 163.0 337.0 183.0 FINAL [facility] (T), [address], [address] [place] [address] 04/11 CMP - Core Lab Sodiu m mmol/L 136.0 145.0 142 FINAL [facility] ([facility]), [address] [place] [address] 04/11 CMP - Core Lab Potas sium mmol/L 3.4 5.1 4.5 FINAL [facility] ([facility]), [address] [place] [address] 04/11 CMP - Core Lab Chlor naif mmol/L 98.0 107.0 106 FINAL [facility] ([facility]), [address] [place] [address] 04/11 CMP - Core Lab CO2 mmol/L 20.0 31.0 25.3 FINAL [facility] ([facility]), [address] [place] [address] 04/11 CMP - Core Lab Anion gap, mmol/ L mmol/L 4.0 15.0 10.7 FINAL [facility] ([facility]), [address] [place] [address] 04/11 CMP - Core Lab BUN mg/dL 9.0 23.0 23 FINAL [facility] ([facility]), [address] [place] [address] 04/11 CMP - Core Lab BUN/C reati nine ratio 0.0 25.0 24.2 FINAL [facility] ([facility]), [address] [place] [address] 04/11 CMP - Core Lab Creat inine mg/dL 0.73 1.18 0.95 FINAL [facility] ([facility]), [address] [place] [address] 04/11 CMP - Core Lab eGFR, mL/mi n/1.7 3 mL/min /1.73m 60.0 0.0 >60.0 FINAL [facility] ([facility]), [address] [place] [address] 04/11 CMP - Core Lab Gluco se mg/dL 74.0 106.0 87 FINAL [facility] ([facility]), [address] [place] [address] [place] [address] 04/11 CMP - Core Lab Calci um mg/dL 8.7 10.6 9.9 FINAL [facility] ([facility]), [address] [place] [address] [place] [address] 04/11 CMP - Core Lab Album in g/dL 3.4 5.0 3.9 FINAL [facility] ([facility]), [address] [place] [address] [place] [address] 04/11 CMP - Core Lab Total prote in g/dL 5.7 8.2 6.3 FINAL [facility] ([facility]), [address] [place] [address] 04/11 CMP - Core Lab A/G ratio 1.0 2.0 1.6 FINAL [facility] ([facility]), [address] [place] [address] [place] [address] 04/11 CMP - Core Lab Alkal ine phosp hatas e U/L 46.0 116.0 34 Low FINAL [facility] ([facility]), [address] [place] [address] [place] [address] 04/11 CMP - Core Lab ALT/S GPT U/L 10.0 49.0 19 FINAL [facility] ([facility]), [address] [place] [address] [place] [address] 04/11 CMP - Core Lab AST/S GOT U/L 0.0 34.0 22 FINAL [facility] ([facility]), [address] [place] [address] [place] [address] 04/11 CMP - Core Lab Bilir ubin, total mg/dL 0.3 1.2 0.3 FINAL [facility] ([facility]), [address] [place] [address] [place] [address] 04/11 PSA, total ng/mL < 0.04 FINAL [facility] ([facility]), [address] [place] [address] 07/11 CBC w/ auto diff WBC 10*3/u L 4.2 9.1 5.[address] [facility] ([facility]), [address], [address] [facility] [address] 07/11 CBC w/ auto diff Alan # (ANC) 10*3/u L 1.78 5.38 3.34 FINAL Milvia Johnson [facility] ([facility]), [address], [address] [place] [id number] 07/11 CBC w/ auto diff LY # 10*3/u L 1.32 3.57 0.98 Low FINAL Milvia Robbing [facility] ([facility]), [address], [address] [place] [id number] 07/11 CBC w/ auto diff MO # 10*3/u L 0.3 0.82 0.41 FINAL Milvia Johnson [facility] ([facility]), [address], [address] [place] [id number] 07/11 CBC w/ auto diff EO # 10*3/u lL 0.04 0.54 0.24 FINAL Milvia Johnson [facility] ([facility]), [address], [address] [place] [id number] 07/11 CBC w/ auto diff BA # 10*3/u L 0.01 0.08 0.03 FINAL Milvia Johnson [facility] ([facility]), [address], [address] [place] [id number] 07/11 CBC w/ auto diff Alan % % 34.0 67.9 66.8 FINAL Milvia Robbing [facility] ([facility]), [address], [address] [facility] [address] 07/11 CBC w/ auto diff LY % % 21.8 53.1 19.6 Low FINAL Milvia Robbing [facility] ([facility]), [address], [address] [facility] [address] 07/11 CBC w/ auto diff MO % % 5.3 12.2 8.2 FINAL Milvia Robbing [facility] ([facility]), [address], [address] [facility] [address] 07/11 CBC w/ auto diff EO % % 0.8 7.0 4.8 FINAL Milviachaim Robbing [facility] (EGT), [address], [address] [place] [address] 07/11 CBC w/ auto diff BA % % 0.2 1.2 0.6 [facility] ([facility] [address], [address] [place] [address] 07/11 CBC w/ auto diff RBC 10*6/u L 4.63 6.08 3.97 Low [facility] ([facility] [address], [address] [place] [address] 07/11 CBC w/ auto diff HGB g/dL 13.7 17.5 11.9 Low FINAL [facility] ([facility] [address], [address] [place] [address] 07/11 CBC w/ auto diff HCT % 40.1 51.0 36.6 Low FINAL [facility] ([facility] [address], [address] [place] [address] 07/11 CBC w/ auto diff MCV fL 79.0 92.2 92.2 FINAL [facility] ([facility] [address], [address] [place] [address] 07/11 CBC w/ auto diff MCH pg 25.7 32.2 30.0 FINAL [facility] ([facility] [address], [address] [place] [address] 07/11 CBC w/ auto diff MCHC g/dL 32.3 36.5 32.5 [facility]AL [facility] [address], [address] [place] [address] 07/11 CBC w/ auto diff RDW-C V, % % 11.6 14.4 13.6 FINAL [facility] ([facility] [address], [address] [facility] [address] 07/11 CBC w/ auto diff PLT 10*3/u L 163.0 337.0 180 FINAL [facility] [address] [facility] [address] 07/11 PSA, total ng/mL < 0.04 FINAL [facility] ([facility]), [address] [place] [address] 07/11 CMP - Core Lab Sodiu m mmol/L 136.0 145.0 143 FINAL Milvia [facility] ([facility]), [address] [place], [place] [id number] 07/11 CMP - Core Lab Potas sium mmol/L 3.4 5.1 4.8 FINAL [facility] ([facility]), [address] [place], [place] [id number] 07/11 CMP - Core Lab Chlor naif mmol/L 98.0 107.0 105 FINAL [facility] ([facility]), [address] [place] [address] 07/11 CMP - Core Lab CO2 mmol/L 20.0 31.0 29.5 FINAL [facility] ([facility]), [address] [place] [address] [place] [address] 07/11 CMP - Core Lab Anion gap, mmol/ L mmol/L 4.0 15.0 8.[address] [facility] ([facility]), [address] [place] [address] [place] [address] 07/11 CMP - Core Lab BUN mg/dL 9.0 23.0 19 FINAL [facility] ([facility]), [address] [place] [address] 07/11 CMP - Core Lab Creat inine mg/dL 0.73 1.18 1.[address] [facility] ([facility]), [address] [place] [address] 07/11 CMP - Core Lab BUN/C reati nine ratio 0.0 25.0 18.6 FINAL [facility] ([facility]), [address] [place] [address] [place] [address] 07/11 CMP - Core Lab eGFR, mL/mi n/1.7 3 mL/min /1.73m >60.0 FINAL [facility] ([facility]), [address] [place] [address] [place] [address] 07/11 CMP - Core Lab Gluco se mg/dL 74.0 106.0 99 FINAL Milvia [facility] ([facility]), [address] [place] [address] [place] [address] 07/11 CMP - Core Lab Calci um mg/dL 8.7 10.6 10.1 FINAL Milvia [facility] ([facility]), [address] [place] [address] [place] [address] 07/11 CMP - Core Lab Album in g/dL 3.4 5.0 3.8 FINAL Milvia [facility] ([facility]), [address] [place] [address] [place] [address] 07/11 CMP - Core Lab Total prote in g/dL 5.7 8.2 6.6 FINAL Milvia [facility] ([facility]), [address] [place] [address] [place] [address] 07/11 CMP - Core Lab A/G ratio 1.0 2.0 1.4 [facility] [address] [place] [address] [place] [address] 07/11 CMP - Core Lab Alkal ine phosp hatas e U/L 46.0 116.0 36 Low [facility] ([facility] [address] [place] [address] [place] [address] 07/11 CMP - Core Lab ALT/S GPT U/L 10.0 49.0 21 FINAL Milvia [facility] ([facility]), [address] [place] [address] [place] [address] 07/11 CMP - Core Lab AST/S GOT U/L 0.0 34.0 23 FINAL [facility] ([facility]), [address] [place] [address] [place] [address] 07/11 CMP - Core Lab Bilir ubin, total mg/dL 0.3 1.2 0.4 FINAL Milvia Johnson [facility] ([facility]), [address] [place] [address] [place] [address] 10/02 CMP - Core Lab Sodiu m mmol/L 136.0 145.0 140 FINAL Shayne [facility] ([facility]), [address] [place] [address] [place] [address] 10/02 CMP - Core Lab Potas sium mmol/L 3.4 5.1 4.3 FINAL Shayne [facility] ([facility]), [address] [place] [address] 10/02 CMP - Core Lab Chlor naif mmol/L 98.0 107.0 105 FINAL Shayne [facility] ([facility]), [address] [place] [address] 10/02 CMP - Core Lab CO2 mmol/L 20.0 31.0 25.1 FINAL Shayne [facility] ([facility]), [address] [place] [address] 10/02 CMP - Core Lab Anion gap, mmol/ L mmol/L 4.0 15.0 9.9 FINAL Shayne [facility] ([facility]), [address] [place] [address] [place] [address] 10/02 CMP - Core Lab BUN mg/dL 9.0 23.0 29 High FINAL Shayne [facility] ([facility]), [address] [place] [address] [place] [address] 10/02 CMP - Core Lab Creat inine mg/dL 0.73 1.18 1.07 FINAL [facility] ([facility]), [address] [place] [address] 10/02 CMP - Core Lab BUN/C reati nine ratio 0.0 25.0 27.1 High FINAL [facility] ([facility]), [address] [place] [address] 10/02 CMP - Core Lab eGFR, mL/mi n/1.7 3 mL/min /1.73m >60.0 FINAL [facility] ([facility]), [address] [place] [address] [place] [address] 10/02 CMP - Core Lab Gluco se mg/dL 74.0 106.0 93 FINAL [facility] ([facility]), [address] [place] [address] [place] [address] 10/02 CMP - Core Lab Calci um mg/dL 8.7 10.6 9.9 FINAL [facility] ([facility]), [address] [place] [address] [place] [address] 10/02 CMP - Core Lab Album in g/dL 3.4 5.0 4.1 FINAL [facility] ([facility]), [address] [place] [address] [place] [address] 10/02 CMP - Core Lab Total prote in g/dL 5.7 8.2 6.6 FINAL [facility] ([facility]), [address] [place] [address] [place] [address] 10/02 CMP - Core Lab A/G ratio 1.0 2.0 1.6 FINAL [facility] ([facility]), [address] [place] [address] [place] [address] 10/02 CMP - Core Lab Alkal ine phosp hatas e U/L 46.0 116.0 39 Low FINAL [facility] ([facility]), [address] [place] [address] [place] [address] 10/02 CMP - Core Lab ALT/S GPT U/L 10.0 49.0 22 FINAL [facility] ([facility]), [address] [place] [address] [place] [address] 10/02 CMP - Core Lab AST/S GOT U/L 0.0 34.0 22 FINAL [facility] ([facility]), [address] [place] [address] [place] [address] 10/02 CMP - Core Lab Bilir ubin, total mg/dL 0.3 1.2 0.4 FINAL [facility] ([facility]), [address] [place] [address] [place] [address] 10/02 CBC w/ auto diff WBC 10*3/u L 4.2 9.1 4.8 FINAL Shayne [facility] (EGT), [address], [address] [place], [place] [id number] 10/02 CBC w/ auto diff Alan # (ANC) 10*3/u L 1.78 5.38 3.21 FINAL Shayne [facility] (EGT), [address], [address] [place] [address] 10/02 CBC w/ auto diff LY # 10*3/u L 1.32 3.57 0.78 Low FINAL Shayne [facility] (T), [address], [address] [place] [address] 10/02 CBC w/ auto diff MO # 10*3/u L 0.3 0.82 0.54 FINAL [facility] ([facility]), [address], [address] [place] [address] 10/02 CBC w/ auto diff EO # 10*3/u lL 0.04 0.54 0.27 FINAL [facility] ([facility]), [address], [address] [place] [address] 10/02 CBC w/ auto diff BA # 10*3/u L 0.01 0.08 0.02 FINAL [facility] ([facility]), [address], [address] [place] [address] 10/02 CBC w/ auto diff Alan % % 34.0 67.9 66.6 FINAL Shayne [facility] ([facility]), [address], [address] [place] [address] 10/02 CBC w/ auto diff LY % % 21.8 53.1 16.2 Low FINAL [facility] (EGT), [address], [address] [place] [address] 10/02 CBC w/ auto diff MO % % 5.3 12.2 11.2 FINAL Shayne [facility] (T), [address], [address] [place] [address] 10/02 CBC w/ auto diff EO % % 0.8 7.0 5.6 FINAL [facility] (EGT), [address], [address] [place] [address] 10/02 CBC w/ auto diff BA % % 0.2 1.2 0.4 FINAL [facility] (EGT), [address], [address] [place] [address] 10/02 CBC w/ auto diff RBC 10*6/u L 4.63 6.08 3.84 Low FINAL [facility] (EGT), [address], [address] [place] [address] 10/02 CBC w/ auto diff HGB g/dL 13.7 17.5 11.4 Low FINAL [facility] (T), [address], [address] [place] [address] 10/02 CBC w/ auto diff HCT % 40.1 51.0 34.7 Low FINAL [facility] (EGT), [address], [address] [place] [address] 10/02 CBC w/ auto diff MCV fL 79.0 92.2 90.4 FINAL [facility] (EGT), [address], [address] [place] [address] 10/02 CBC w/ auto diff MCH pg 25.7 32.2 29.7 FINAL [facility] (EGT), [address], [address] [place] [address] 10/02 CBC w/ auto diff MCHC g/dL 32.3 36.5 32.9 FINAL [facility] (EGT), [address], [address] [place] [address] 10/02 CBC w/ auto diff RDW-C V, % % 11.6 14.4 13.7 FINAL [facility] (T), [address], [address] [place] [address] 10/02 CBC w/ auto diff PLT 10*3/u L 163.0 337.0 174 FINAL Shayne [facility] (EGT), [address], [address] [facility] [address] 10/02 PSA, total ng/mL < 0.04 FINAL Shayne [facility] ([facility]), [address] [facility] [address] Medications Date Name Route Dose Frequency Instructions Start Date End Date Status Fill Status Indication 01/10 Atorvast atin Oral once a day active 04/12 Fenofibr ate Oral 145.0 active 10/09 Butalbit al-Codei ne-Aceta minophen -Caffein e Oral 50 mg-30 mg-325 mg-40 mg orally 2.0 every 4 hours prn pain; do not exceed 6 caps per day active 04/11 Clopidog rel Oral active 04/11 Valsarta n Oral active 07/11 Venlafax ine Oral 24 hr Cap active 01/10 Amlodipi ne Oral once a day active 01/10 1 ML leuproli de acetate 3.75 MG/ML Prefille d Syringe intramus cularly 22.5 mg every 3 months 2024 active Prostate cancer in situ 04/12 1 ML leuproli de acetate 3.75 MG/ML Prefille d Syringe intramus cularly 22.5 mg every 3 months 2023 active Prostate cancer in situ Problems Diagnosis Status Date of Diagnosis Resolution [...] Nurse Note Print Location: Unknown Date/Time Printed: 11/12/2024 11:44 ([facility]) Patient: RICHI CRUZ Sex: Male [...] mg Amount in mL: 1.5 Pharmacy dispense: [facility]: [id number] Dispense/Waste: 22.5/0 mg Given Dose/Discard: 22.5/0 mg Admin Details: Injection Location: Left-Dorsogluteal Time: 10:26 Double Checked By: Rachel Ashley RN on 10/02/2024 10:25 and Aziza Gay RN on 10/02/2024 10:25 * Nurse Note for: 11-JUL-24 [facility] Nurse Note Print Location: Unknown Date/Time Printed: 11/12/2024 11:44 ([facility]) Patient: RICHI CRUZ Sex: Male [...] Nurse Note Print Location: Unknown Date/Time Printed: 11/12/2024 11:44 ([facility]) Patient: RICHI CRUZ Sex: Male [...] Pharmacy plan: Dispense/Waste: 22.5/0 mg Pharmacy dispense: [facility]: [id number] Dispense/Waste: 22.5/0 mg Given Dose/Discard: 22.5/0 mg Admin Details: Injection Location: Right-Dorsogluteal, Comments: x 1 Time: 10:15 Double Checked By: Aislinn Blair RN on 04/11/2024 10:06 and Edie Blanco RN on 04/11/2024 10:06 * Nurse Note for: 11-JAN-24 [facility] Nurse Note Print Location: Unknown Date/Time Printed: 11/12/2024 11:44 ([facility]) Patient: RICHI CRUZ Sex: Male [...] Pharmacy plan: Dispense/Waste: 22.5/0 mg Pharmacy dispense: [facility]: [id number] Dispense/Waste: 22.5/0 mg Given Dose/Discard: 22.5/0 mg Admin Details: Injection Location: Right-Dorsogluteal, Comments: x 1 Time: 10:03 Double Checked By: Edie Blanco RN on 01/11/2024 10:03 and Trang Dukes RN on 01/11/2024 10:03 * Nurse Note for: 11-OCT-23 [facility] Nurse Note Print Location: Unknown Date/Time Printed: 11/12/2024 11:44 ([facility]) Patient: RICHI CRUZ Sex: Male : [...] Pharmacy plan: Dispense/Waste: 22.5/0 mg Pharmacy dispense: [facility]: [id number] Dispense/Waste: 22.5/0 mg Given Dose/Discard: 22.5/0 mg Admin Details: Injection Location: Right-Dorsogluteal, Comments: Injection x 1. Time: 11:30 Double Checked By: Aziza Gay RN on 10/11/2023 11:28 and Emily Lujan RN on 10/11/2023 11:30 * Nurse Note for: 11-JUL-23 [facility] Nurse Note Print Location: Unknown Date/Time Printed: 11/12/2024 11:44 ([facility]) Patient: RICHI CRUZ Sex: Male : [...] Pharmacy plan: Dispense/Waste: 22.5/0 mg Pharmacy dispense: [facility]: [phone] Dispense/Waste: 22.5/0 mg Given Dose/Discard: 22.5/0 mg Admin Details: Injection Location: Right-Dorsogluteal Time: 10:20 Double Checked By: Trang Dukes RN on 07/11/2023 10:05 and Edie Blanco RN on 07/11/2023 11:01 * Nurse Note for: 12-APR-23 [facility] Nurse Note Print Location: Unknown Date/Time Printed: 11/12/2024 11:44 ([facility]) Patient: RICHI CRUZ Sex: Male [...] . Entered By Lily Raphael RN on :28 Medication Administration : Incident to: Shayne Castellanos MD Leuprolide D1 Q3M Hormone Therapy Leuprolide IM, 22.5 mg intramuscularly every 3 months, Allow Substitution GIVEN: 22.5 mg Pharmacy plan: Dispense/Waste: 22.5/0 mg Pharmacy dispense: [facility]: [id number] Dispense/Waste: 22.5/0 mg Given Dose/Discard: 22.5/0 mg Admin Details: Injection Location: Right-Dorsogluteal Time: 09:15 Double Checked By: Lily Raphael RN on 04/12/2023 09:27 and Emily Lujan RN on 04/12/2023 09:33 * Nurse Note for: 10-JAN-23 [facility] Nurse Note Print Location: Unknown Date/Time Printed: 11/12/2024 11:44 ([facility]) Patient: RICHI CRUZ Sex: Male [...] Pharmacy plan: Dispense/Waste: 22.5/0 mg Pharmacy dispense: [facility]: [id number] Dispense/Waste: 22.5/0 mg Given Dose/Discard: 22.5/0 mg Admin Details: Injection Location: Right-Dorsogluteal, Comments: injection x1 Time: 11:14 Double Checked By: Denisse Harris RN on 01/10/2023 11:11 and Marlen Lee on 01/10/2023 11:18 * Nurse Note for: 10-OCT-22 [facility] Nurse Note Print Location: Unknown Date/Time Printed: 11/12/2024 11:44 ([facility]) Patient: RICHI CRUZ Sex: Male : 1950 [...] . Entered By Edie Blanco RN on :23 Medication Administration : Incident to: Catrachito Boss MD Leuprolide D1 Q3M Hormone Therapy Leuprolide IM, 22.5 mg intramuscularly every 3 months, Allow Substitution GIVEN: 22.5 mg Pharmacy plan: Dispense/Waste: 22.5/0 mg Pharmacy dispense: [facility]: [id number] Dispense/Waste: 22.5/0 mg Given Dose/Discard: 22.5/0 mg Admin Details: Injection Location: Right-Dorsogluteal, Comments: x 1 IM Time: 10:23 Checked By: Edie Blanco RN on 10/10/2022 10:25
--- OUTSIDE RECORDS SUMMARY | 2024-11-12 11:45 | XMS_ITS | CCD ---
Author Name Interface, [id number] lity Address [address] [place] [address] Organization [facility] Address [address] [place] [address] Care Team Providers Care Real Estate Processor Name Role Phone Jasmin BRAMBILA, Shayne Wahl Unavailable Unavailable Allergies and Adverse Reactions Care Plan Reason for Visit Encounters Functional Status Diagnostic Results Medications Administered Medications Patient Education Problems Procedures Social History Visits Vital Signs Notes Section
[2024-11-12 12:47] LABS: Hematocrit 38.1 % (42.0-52.0); Hemoglobin 12.4 g/dL (14.1-18.0); Immature Granulocytes % 0.2 %; Mean Corpuscular HGB Conc 32.5 g/dL (31.8-35.4); Mean Corpuscular Hemoglobin 29.4 pg (27.0-31.2); Mean Corpuscular Volume 90.3 fl (80-94); Nucleated Red Blood Cells % 0 %; Platelet Count 172 K/mm3 (142-424); Red Blood Count 4.22 M/mm3 (4.60-6.20); Red Cell Distribution Width-SD 47.2 fL; White Blood Count 5.2 K/mm3 (4.8-10.8)
[2024-11-12 12:54] LABS: Alanine Aminotransferase 23 U/L (12-78); Albumin Level 4.4 g/dl (3.5-5.0); Alkaline Phosphatase 41 U/L (38-126); Anion Gap 10.7 mEq/L (5-15); Aspartate Amino Transferase 28 U/L (17-59); Bilirubin,Direct 0.1 mg/dl (0.0-0.4); Bilirubin,Indirect 0.5 mg/dL (0.0-0.9); Bilirubin,Total 0.6 mg/dl (0.2-1.3); Bilirubin,Unconjugated 0.5 mg/dL (0.0-1.1); Blood Urea Nitrogen 28 mg/dl (9-20); Calcium 9.9 mg/dl (8.4-10.2); Carbon Dioxide 28 mmol/L (22.0-30.0); Chloride 102 mmol/L (98-107); Cholesterol 123 mg/dl (140-200); Creatinine,Serum 0.90 mg/dl (0.66-1.25); Estimated Glomerular Filt Rate 83 ml/min (>60); GFR (African American) 100 ML/MIN (>60); Glucose 124 mg/dl (74-100); HDL Cholesterol 38 mg/dl (40-60); Magnesium 1.8 mg/dl (1.6-2.3); Potassium 4.7 mmoL/L (3.5-5.1); Sodium 136 mmol/L (136-145); Total Protein,Serum 6.7 g/dl (6.3-8.2); Triglycerides 139 mg/dl (30-150)
[2024-11-12 13:14] LABS: Free T4 (Free Thyroxine) 0.65 ng/dl (0.78-2.19)
[2024-11-12 13:28] LABS: Thyroid Stimulating Hormone 1.97 uIU/mL (0.465-4.68)
== END 2024-11-12 23:59 | disposition home or self-care (01) ==
LOC: LAB 11:37
PROVIDERS: PCP Family Medicine; Visit Provider Nurse Practitioner
DX: I71.21 Aneurysm of the ascending aorta, without rupture (principal); I25.10 Atherosclerotic heart disease of native coronary artery without angina pectoris; I10 Essential (primary) hypertension; E78.5 Hyperlipidemia, unspecified
CPT/HCPCS: 36415; 80048; 80061; 80076; 83735; 84439; 84443; 85025

== ENCOUNTER 2024-11-27 08:06 | Outpatient (CLI) | payer MEDICARE, SELFPAY ==
--- NOTE | 2024-11-27 08:00 | CT_ITS ---
FINAL REPORT TECHNIQUE: Axial imaging of the chest is obtained after the administration of contrast. 3-D MIP reformatted images were also obtained and reviewed per PE protocol. This study was performed with techniques to keep radiation doses as low as reasonably achievable (ALARA). Individualized dose reduction techniques using automated exposure control or adjustment of mA and/or kV according to the patient's size were employed. CLINICAL HISTORY: eval of ascending aorta aneurysm COMPARISON: CT of the chest 06/15/2023 FINDINGS: The pulmonary arteries are well filled. There is no evidence of pulmonary embolus. There is no change in appearance or size of the ascending aortic aneurysm when compared to the prior exam of 06/15/2023. The aneurysm is stable, measuring 4.2 cm in diameter. There is no aortic dissection. Heart size is enlarged. There is no mediastinal, hilar, or axillary lymphadenopathy. There is a stable 9 mm medial right lower lobe nodule best seen on image #36 of series 3. Otherwise, the lungs are clear. There is no pleural or pericardial effusion. Limited evaluation of the upper abdomen is without acute abnormality. No acute osseous abnormality. IMPRESSION: Stable ascending aortic aneurysm, measuring 4.2 cm in size when compared to the prior exam of 06/15/2023. Stable 9 mm medial right lower lobe nodule. No new nodules or infiltrates are identified. Reviewed, Interpreted and Dictated by Adenike Edwards MD Transcribed by Camryn Juares Authenticated and [facility]
[2024-11-27] MEDS: 0.9 % SODIUM CHLORIDE 50 ML VIAL 10 ML IV (08:53)
[2024-11-27] MEDS: IOPAMIDOL-370 (76%);100ML BOTTLE 80 ML IV (08:53)
== END 2024-11-27 23:59 | disposition home or self-care (01) ==
LOC: RAD 08:07
PROVIDERS: PCP Family Medicine; Visit Provider Nurse Practitioner
DX: I71.21 Aneurysm of the ascending aorta, without rupture (principal); I25.10 Atherosclerotic heart disease of native coronary artery without angina pectoris; I10 Essential (primary) hypertension; E78.5 Hyperlipidemia, unspecified; R91.1 Solitary pulmonary nodule
CPT/HCPCS: 71275; Q9967